=== PATIENT | male | born 1930 | race Hispanic/Latino ===

== ENCOUNTER 2017-05-14 07:47 | Inpatient (IN) | payer MEDICARE ==
[2017-05-14 07:47] VITALS: BMI 26.8
[2017-05-14] MEDS ORDERED: Morphine 2 mg/ml ISec IVP STA (08:33)
[2017-05-14] MEDS ORDERED: Iohexol 240 (50 ml) ONE (08:43)
--- NOTE | 2017-05-14 08:47 | ED PDOC ---
Arrival/HPI - General Chief Complaint: Abdominal Pain Time Seen by Provider: 05/14/17 08:31 Historian: Patient - History of Present Illness Narrative History of Present Illness (Text): 05/14/17 08:39 Am 87 year old male, whose past medical history includes BPH, prostate CA, indwelling catheter, CAD s/p NSTEMI, intermittent UTI and seizure disorder, presents to the emergency department complaining of 1 month duration right sided abdominal pain with no exacerbative or palliative factors. The patient states that the pain has culminated over the past 4-5 days. He notes that it is a generalized abdominal pain, but is mostly a band-like pain across the lower abdomen radiating down his right lower extremity with associated bilateral CVA and groin pain, insomnia, and constipation. The patient states that the pain is worsened at night after reclining. The patient denies fevers, chills, headache, dizziness, chest pain, shortness of breath, dyspnea on exertion, cough, nausea, vomiting, diarrhea, neck pain, urinary changes, or any other complaint. PMD: Dr. Shields Time/Duration: Other (1 month) Symptom Onset: Sudden Symptom Course: Worsening Activities at Onset: Rest, Light Context: Home Past Medical History - Provider Review Nursing Documentation Reviewed: Yes - Infectious Disease Hx of Infectious Diseases: None - Cardiac Hx Cardiac Disorders: No - Pulmonary Hx Respiratory Disorders: No - Neurological Hx Neurological Disorder: Yes Hx Seizures: Yes - HEENT Hx HEENT Disorder: Yes Hx Glaucoma: Yes - Renal Hx Renal Disorder: No - Endocrine/Metabolic Hx Endocrine Disorders: No - Hematological/Oncological Hx Blood Disorders: No - Integumentary Hx Dermatological Disorder: No - Musculoskeletal/Rheumatological Hx Arthritis: Yes - Genitourinary/Gynecological Hx Prostate Cancer: Yes (treated with Luprone shot once a month) - Psychiatric Hx Psychophysiologic Disorder: No Hx Substance Use: No Other/Comment: patient has indwelling catheter - Anesthesia Hx Anesthesia: No Family/Social History - Physician Review Nursing Documentation Reviewed: Yes Family/Social History: No Known Family HX Smoking Status: Never Smoked Hx Alcohol Use: No Hx Substance Use: No Allergies/Home Meds Allergies/Adverse Reactions: Allergies No Known Allergies Allergy (Verified 04/12/16 14:27) Home Medications: Home Meds Medication Instructions Recorded Confirmed Bicalutamide [Casodex] 50 mg PO DAILY 04/08/16 05/14/17 Carbamazepine 200 mg PO TID 04/08/16 05/14/17 Cyanocobalamin (Vitamin B-12) 1,000 mcg PO DAILY 04/08/16 05/14/17 [B-12] Gemfibrozil 600 mg PO BID 04/08/16 05/14/17 Leuprolide [Lupron Depot] 04/08/16 04/08/16 Multivit-Min/FA/Lycopen/Lutein 1 tab PO DAILY 04/08/16 05/14/17 [Centrum Silver Tablet] [place]-3 Fatty Acids [Fish Oil] 100 mg PO DAILY 04/08/16 05/14/17 Omeprazole 40 mg PO DAILY 04/08/16 05/14/17 Polyethylene Glycol 3350 [Gavilax] 5 ml PO DAILY 04/08/16 05/14/17 Ubidecarenone [Coq10] 100 mg PO DAILY 04/08/16 05/14/17 Latanoprost 0.005% Opht [XALATAN 1 drp OP 05/14/17 2.5 Ml] Magnesium Gluconate 500 mg PO DAILY 05/14/17 05/14/17 Review of Systems - Physician Review All systems were reviewed & negative as marked: Yes - Review of Systems Constitutional: absent: Fevers, Night Sweats Eyes: Normal ENT: Normal Respiratory: absent: SOB Cardiovascular: absent: Chest Pain, AGUILA Gastrointestinal: Abdominal Pain (Generalized, band -like pain along the lower abdomen. Mostly along the RUQ.), Constipation. absent: Diarrhea, Nausea, Vomiting, Appetite Changes Genitourinary Male: absent: Urinary Output Changes Musculoskeletal: Back Pain (bilateral CVA pain), Other (Abdominal pain radiates down to the right lower extremity. ). absent: Neck Pain Skin: Normal Neurological: absent: Headache, Dizziness Endocrine: Normal Hemo/Lymphatic: Normal Psychiatric: Normal Physical Exam Vital Signs Reviewed: Yes Vital Signs Temp Pulse Resp BP Pulse Ox 05/14/17 14:34 71 17 158/70 H 98 05/14/17 12:17 67 18 160/68 H 97 05/14/17 10:10 70 18 157/67 H 98 05/14/17 08:14 98.1 F 71 18 146/63 100 Temperature: Afebrile Blood Pressure: Normal Pulse: Regular Respiratory Rate: Normal Appearance: Positive for: Well-Appearing, Non-Toxic, Comfortable Pain Distress: None Mental Status: Positive for: Alert and Oriented X 3 - Systems Exam Head: Present: Atraumatic, Normocephalic Pupils: Present: PERRL Extroacular Muscles: Present: EOMI Conjunctiva: Present: Normal Mouth: Present: Moist Mucous Membranes Neck: Present: Normal Range of Motion Respiratory/Chest: Present: Clear to Auscultation, Good Air Exchange. No: Respiratory Distress, Accessory Muscle Use Cardiovascular: Present: Regular Rate and Rhythm, Normal S1, S2. No: Murmurs Abdomen: Present: Tenderness (Generalized abdominal tenderness. Most tender on the RUQ. ) Genitourinary Male: Present: Other (Indwelling holland catheter draining clear urine. ) Back: Present: CVA Tenderness (Bilateral CVA Tenderness. ) Upper Extremity: Present: Normal Inspection. No: Cyanosis, Edema Lower Extremity: Present: Normal Inspection. No: Edema Neurological: Present: GCS=15, CN II-XII Intact, Speech Normal, Motor Func Grossly Intact, Normal Sensory Function, Normal Cerebellar Funct, Norm Deep Tendon Reflexes, Gait Normal, Memory Normal Skin: Present: Warm, Dry, Normal Color. No: Rashes Psychiatric: Present: Alert, Oriented x 3, Normal Insight, Normal Concentration Medical Decision Making ED Course and Treatment: 05/14/17 08:50 Impression: An 87 year old male presents to the emergency department complaining of 1 month duration generalized abdominal pain, mostly along the right upper quadrant radiating down to his right lower extremity with associated constipation, insomnia, CVA and groin pain. Plan: -- EKG -- Abdomen/Pelvis CT -- Chest X-ray -- Labs -- Morphine and Ditropan -- Blood/ Urine Culture -- Urinalysis -- Reassess and disposition Progress Notes: EK05/14/17 09:38 Ordered, reviewed, and independently interpreted the EKG. Rate : 73 BPM Rhythm : NSR Interpretation : Concomitant RBBB. QTC [address]-T segments CHEST X-RAY Dictator : Rickey Medley MD Report Date : 05/14/2017 09:21:02 IMPRESSION: No active disease. 05/14/17 11:35 ct a/p scan results appreciated : no acute findings- no bony mets discovered however, one wonders if they may be acute and contirbuting to patient's pain. serial abdominal exams benign . PROCEDURE: CT Abdomen and Pelvis with contrast Dictator : Tawanda Christine MD Report Date : 05/14/2017 11:09:54 IMPRESSION: Para-aortic, pelvic and inguinal adenopathy on the left. Asymmetrical enlargement of the prostate suspicious for neoplasm. [place] catheter in the bladder. No acute findings to correlate with the history of abdominal pain GALLBLADDER ULTRASOUND Dictator : Rickey Medley MD Report Date : 05/14/2017 13:50:49 IMPRESSION: Mild hepatomegaly with fatty infiltration of the liver. No evidence of cholelithiasis or cholecystitis. Incidental 11 mm right lower pole renal cortical cyst. - Lab Interpretations Lab Results: 05/14/17 09:17 05/14/17 08:50 Lab Results 05/14/17 09:17: pO2 40, VBG pH 7.29 L, VBG pCO2 62.0 H, VBG HCO3 29.8 H, VBG Total CO2 31.7 H, VBG O2 Sat (Calc) 76.4 H, VBG Base Excess 1.6, VBG Potassium 3.9, Glucose 96, Lactate 1.6, FiO2 21.0, Sodium 143.0, Chloride 107.0, Venous Blood Potassium 3.9 05/14/17 09:17: PT 12.4, INR 1.08, APTT 31.9 05/14/17 09:17: WBC 6.3 D, RBC 3.57, Hgb 11.1 L, Hct 33.6 L, MCV 94.1, MCH 31.1 , MCHC 33.0, RDW 13.3, Plt Count 168, MPV 9.9, Gran % 30.1 L, Lymph % (Auto) 62.9 H, [place] % (Auto) 6.3 H, Eos % (Auto) 0.5 L, Baso % (Auto) 0.2, Gran # 1.90 , Lymph # 4.0 H, [place] # 0.4, Eos # 0.0, Baso # 0.01 05/14/17 08:50: Sodium 144, Potassium 3.8, Chloride 104, Carbon Dioxide 28, Anion Gap 16, BUN 26 H, Creatinine 0.8, Est GFR ( Amer) > 60, Est GFR ( Non-Af Amer) > 60, Random Glucose 96, Calcium 9.5, Magnesium 2.1, Total Bilirubin 0.4, AST 37, ALT 24, Alkaline Phosphatase 214 H, Total Protein 7.6, Albumin 4.3, Globulin 3.3, Albumin/Globulin Ratio 1.3 05/14/17 08:50: Urine Color Yellow, Urine Appearance Turbid, Urine pH 6.5, Ur Specific [place] 1.015, Urine Protein Trace H, Urine Glucose (UA) Negative, Urine Ketones Negative, Urine Blood Moderate H, Urine Nitrate Negative, Urine Bilirubin Negative, Urine Urobilinogen 0.2, Ur Leukocyte Esterase Small H, Urine RBC 5 - 10, Urine WBC 1 - 3, Ur Epithelial Cells 0 - 2, Urine Bacteria Mod I have reviewed the lab results: Yes - RAD Interpretation Radiology Orders: 05/14/17 08:32 CHEST PORTABLE [RAD] Stat 05/14/17 08:34 ABD PELVIS PO & IV CONTRAST [CT] Stat 05/14/17 11:46 GALL BLADDER [US] Stat - EKG Interpretation Interpreted by ED Physician: Yes Type: 12 lead EKG - Medication Orders Current Medication Orders: Discontinued Medications Acetaminophen (Tylenol 325mg Tab) 975 mg PO STAT STA Stop: 05/14/17 09:46 Last Admin: 05/14/17 09:55 Dose: 975 mg ALEXIS Pain/Vitals Document 05/14/17 09:55 MARTY (Rec: 05/14/17 09:55 MARTY NAVARRO) Pain Reassessment Is This A Pain ReAssessment? No Sleep Is patient sleeping during reassessment? No Presence of Pain Presence of Pain Yes Docusate Sodium (Colace) 200 mg PO STAT STA Stop: 05/14/17 11:34 Last Admin: 05/14/17 12:25 Dose: 200 mg Last Bowel Movement Document 05/14/17 12:25 SF (Rec: 05/14/17 12:26 SF [id number]) Last Bowel Movement Last Bowel Movement 05/11/17 Morphine Sulfate (Morphine) 2 mg IVP STAT STA Stop: 05/14/17 08:34 Last Admin: 05/14/17 08:45 Dose: 2 mg MAR Pain Assessment Document 05/14/17 08:45 MARTY (Rec: 05/14/17 09:57 MARTY [id number]-PC) Pain Reassessment Is this a pain reassessment? No Sleep Is patient sleeping during reassessment? No Presence of Pain Presence of Pain Yes IVP Administration Document 05/14/17 08:45 SZA (Rec: 05/14/17 09:57 MARTY FALCON-PC) Charges for Administration # of IVP Administrations 1 Re-Assess: MAR Pain Assessment Document 05/14/17 09:45 SZA (Rec: 05/14/17 11:09 MARTY [email or web address]) Pain Reassessment Is this a pain reassessment? No Sleep Is patient sleeping during reassessment? No Presence of Pain Presence of Pain Yes Pain Scale Used Pain Scale Used Numeric Description Description Intermittent Intensity of Pain at present 4 Morphine Sulfate (Morphine) 4 mg IVP STAT STA Stop: 05/14/17 11:46 Last Admin: 05/14/17 12:25 Dose: 4 mg MAR Pain Assessment Document 05/14/17 12:25 SF (Rec: 05/14/17 12:25 SF [id number]) Pain Reassessment Is this a pain reassessment? Yes Sleep Is patient sleeping during reassessment? No Presence of Pain Presence of Pain Yes Pain Scale Used Pain Scale Used Numeric IVP Administration Document 05/14/17 12:25 SF (Rec: 05/14/17 12:25 SF [id number]) Charges for Administration # of IVP Administrations 1 Ondansetron HCl (Zofran Inj) 4 mg IVP STAT STA Stop: 05/14/17 11:47 Last Admin: 05/14/17 12:26 Dose: 4 mg IVP Administration Document 05/14/17 12:26 SF (Rec: 05/14/17 12:26 SF [id number]) Charges for Administration # of IVP Administrations 1 Oxybutynin Chloride (Ditropan Tab) 5 mg PO ONCE ONE Stop: 05/14/17 08:35 Last Admin: 05/14/17 09:55 Dose: 5 mg Trimethoprim/Sulfamethoxazole (Bactrim Ds Tab) 1 tab PO STAT STA PRN Reason: Protocol Stop: 05/14/17 11:33 Last Admin: 05/14/17 12:25 Dose: 1 tab - Scribe Statement The provider has reviewed the documentation as recorded by the Crescencio Carroll Provider Scribe Attestation: All medical record entries made by the Scribe were at my direction and personally dictated by me. I have reviewed the chart and agree that the record accurately reflects my personal performance of the history, physical exam, medical decision making, and the department course for this patient. I have also personally directed, reviewed, and agree with the discharge instructions and disposition. Disposition/Present on Arrival - Present on Arrival Any Indicators Present on Arrival: Yes History of DVT/PE: No History of Uncontrolled Diabetes: No Urinary Catheter: Yes (inserted by Dr Nascimento) History of Decub. Ulcer: No History Surgical Site Infection Following: None - Disposition Have Diagnosis and Disposition been Completed?: Yes Diagnosis: Urinary tract infection, Intractable abdominal pain, Sciatica of right side Disposition: HOSPITALIZED Disposition Time: 15:07 Patient Plan: Admission Condition: FAIR Referrals: Mariana Yanez, [Non-Staff] - Follow up with primary Forms: [employer] (Greek)
--- NOTE | 2017-05-14 09:22 | RAD ---
HISTORY: Sepsis Patient COMPARISON: 04/08/2016 FINDINGS: LUNGS: No active pulmonary disease. PLEURA: No significant pleural effusion identified, no pneumothorax apparent. CARDIOVASCULAR: Normal. OSSEOUS STRUCTURES: No significant abnormalities. VISUALIZED UPPER ABDOMEN: Normal. OTHER FINDINGS: None. IMPRESSION: No active disease.
[2017-05-14 09:25] LABS: PH,URINE 6.5 (4.7-8.0); URINE APPEARANCE TURBID (CLEAR); URINE BILIRUBIN NEGATIVE (NEGATIVE); URINE BLOOD MODERATE (NEGATIVE); URINE COLOR YELLOW (YELLOW); URINE GLUCOSE (UA) NEGATIVE (NEGATIVE); URINE LEUKOCYTE ESTERASE SMALL Leu/uL (NEGATIVE); URINE NITRATE NEGATIVE (NEGATIVE); URINE PROTEIN TRACE mg/dL (<30 mg/dL); URINE UROBILINOGEN 0.2 E.U./dL (<1 E.U./dL)
[2017-05-14 09:29] LABS: BASO # 0.01 [, K/mm3] (0.0-2.0); BASO % 0.2 % (0.0-3.0); EOS % 0.5 % (1.5-5.0); GRAN # 1.9 (1.4-6.5); GRAN % 30.1 % (50.0-68.0); HEMOGLOBIN 11.1 g/dL (14.0-18.0); LYMPH % 62.9 % (22.0-35.0); MEAN CELL VOLUME 94.1 fl (80.0-105.0); MEAN CORPUSCULAR HEMOGLOBIN 31.1 pg (25.0-35.0); MEAN PLATELET VOLUME 9.9 fl (7.0-11.0); MONO # 0.4 (0.1-0.6); MONO % 6.3 % (1.0-6.0); RBC 3.57 [, 10^6/uL] (3.5-6.1); RED CELL DISTRIBUTION WIDTH 13.3 % (11.5-14.5); WHITE BLOOD COUNT 6.3 [, 10^3/ul] (4.5-11.0)
[2017-05-14 09:31] LABS: VENOUS BLOOD GAS BASE EXCESS 1.6 mmol/L (0.0-2.0); VENOUS BLOOD GAS PO2 40 mm/Hg (30-55); VENOUS BLOOD PH 7.29 (7.32-7.43)
[2017-05-14 09:38] LABS: INR 1.08 (0.93-1.08); PARTIAL THROMBOPLASTIN TIME 31.9 Seconds (25.1-36.5); PROTHROMBIN TIME 12.4 SECONDS (9.4-12.5)
[2017-05-14 09:41] LABS: ALB/GLOB RATIO 1.3 (1.1-1.8); ALBUMIN 4.3 g/dL (3.0-4.8); ALT/SGPT 24 U/L (7-56); AST/SGOT 37 U/L (17-59); BLOOD UREA NITROGEN 26 mg/dL (7-21); CALCIUM 9.5 mg/dL (8.4-10.5); GFR AFRICAN-AMERICAN > 60; GFR NON-AFRICAN AMERICAN > 60; MAGNESIUM 2.1 mg/dL (1.7-2.2)
[2017-05-14 09:42] LABS: URINE BACTERIA MOD (NEG); URINE EPITHELIAL CELLS 0 - 2 /hpf (0-5)
[2017-05-14] MEDS ORDERED: Iohexol 350 MG/100 ML VIAL ONE (10:28)
--- NOTE | 2017-05-14 10:42 | CARD ---
APPROVED REPORT EKG Measurement Heart [id number] NM [id number] <Conclusion> Normal sinus rhythm Right bundle branch block Abnormal ECG
--- NOTE | 2017-05-14 11:11 | CT ---
PROCEDURE: CT Abdomen and Pelvis with contrast HISTORY: rt sided abdominal pain/b/l cva pain/indweeling ca COMPARISON: None. TECHNIQUE: Contrast dose: 100 cc of Omni 350 Radiation dose: Total exam DLP = 719 mGy-cm. This CT exam was performed using one or more of the following dose reduction techniques: Automated exposure control, adjustment of the mA and/or kV according to patient size, and/or use of iterative reconstruction technique. FINDINGS: LOWER THORAX: Unremarkable. LIVER: Unremarkable. No gross lesion or ductal dilatation. GALLBLADDER AND BILE DUCTS: There is mild distention of the gallbladder but no wall thickening or evidence of stones. PANCREAS: Unremarkable. No gross lesion or ductal dilatation. SPLEEN: Unremarkable. ADRENALS: Unremarkable. No mass. KIDNEYS AND URETERS: Unremarkable. No hydronephrosis. No solid mass. VASCULATURE: Unremarkable. No aortic aneurysm. BOWEL: Unremarkable. No obstruction. No gross mural thickening. There are no acute findings to correlate with the history of abdominal pain APPENDIX: Normal appendix. PERITONEUM: Unremarkable. No free fluid. No free air. LYMPH NODES: Multiple in large lymph nodes are seen on the left side of the pelvis the largest measuring 3 cm in length. Image 66 series 2. There is also para-aortic adenopathy and inguinal adenopathy on the left. BLADDER: There is a Bray catheter in the bladder REPRODUCTIVE: There is asymmetrical enlargement of the prostate gland extending posterior laterally to the left. The finding is suspicious for pancreatic malignancy and clinical correlation is recommended. The finding is best seen on axial images 81 and 82 of series 2. BONES: No acute fracture. OTHER FINDINGS: None. IMPRESSION: Para-aortic, pelvic and inguinal adenopathy on the left. Asymmetrical enlargement of the prostate suspicious for neoplasm. Bray catheter in the bladder. No acute findings to correlate with the history of abdominal pain
[2017-05-14] MEDS ORDERED: Tmp-Smz 800 mg-160 mg DS Tab PO STA (11:32)
[2017-05-14] MEDS ORDERED: Morphine 4 mg/ml ISec IVP STA ×2 (11:45→16:36)
--- NOTE | 2017-05-14 13:52 | US ---
HISTORY: ruq sono/ gb lith COMPARISON: None. TECHNIQUE: Sonographic evaluation of the right upper quadrant of the abdomen. FINDINGS: LIVER: Measures 19.0 cm in length. Diffusely increased echogenicity of the liver parenchyma. No mass. No intrahepatic bile duct dilatation. GALLBLADDER: Unremarkable. No gallstones. COMMON BILE DUCT: Measures 6 mm. No stones. No dilatation. PANCREAS: Unremarkable as visualized. No mass. No ductal dilatation. RIGHT KIDNEY: Measures 10.7 cm in length. Normal echogenicity and cortical thickness. No calculus or hydronephrosis. Lower pole simple cortical cyst, 9 x 9 x 11 mm. AORTA: No aneurysmal dilatation. IVC: Unremarkable. OTHER FINDINGS: None . IMPRESSION: Mild hepatomegaly with fatty infiltration of the liver. No evidence of cholelithiasis or cholecystitis. Incidental 11 mm right lower pole renal cortical cyst.
[2017-05-15] MEDS: cefTRIAXone 1 gm 1 GM/100 ML BAG IV SCH (10:00)
[2017-05-15] MEDS: metroNIDAZOLE IV 500 mg/100 ml 500 MG/100 ML BAG IVPB SCH ×2 (11:02→15:19)
[2017-05-15] MEDS: Latanoprost 2.5 ml Opht Soln OD SCH (15:35)
[2017-05-15] MEDS: POLYETHYLENE GLYCOL 3350 17 GM/Dose PACKET PO SCH (17:50)
--- NOTE | 2017-05-15 20:20 | MRI ---
EXAM: MR Lumbar Spine Without Intravenous Contrast EXAM DATE/TIME: 05/15/2017 3:33 PM CLINICAL HISTORY: The patient age is 87 years old and is male; Pain; Low back pain; Patient HX: Lbp. Can't straighten up and trouble walking. Facility exam id and description: Mri spls spinal canal lumbar w/o cont TECHNIQUE: Magnetic resonance images of the lumbar spine without intravenous contrast in multiple planes. COMPARISON: No relevant prior studies available. FINDINGS: Vertebrae: Multiple T1 hypointense masses are identified within the lumbar vertebral bodies as well as the upper sacrum. These findings are concerning for metastatic disease. The lumbar vertebral bodies are normal in height, without abnormal subluxation. Spinal cord: The distal end of the conus medullaris ends at L1, normal in position. Soft tissues: Small T2 hyperintense right renal cysts are visualized. Lymph nodes: There is retroperitoneal lymphadenopathy. Additional enlarged lymph nodes are seen adjacent to the left iliac arteries. At the level of the aortic bifurcation, there is a 2.5 x 1.5 cm lymph node on the left side. 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 There is a decrease of disc height at L5-S1. L1-L2: There is no significant narrowing of the thecal sac or neural foramina. L2-L3: There is no significant narrowing of the thecal sac. Mild bilateral neural foraminal narrowing is identified. L3-L4: There is mild bilateral facet arthropathy. Mild post bulging is visualized, without significant narrowing of the thecal sac. Mild right and [id number]-yi-hrumnjce left neural foraminal narrowing is identified. L4-L5: There is a broad-based disc bulge, with mild narrowing of the thecal sac and narrowing of both lateral recesses. There is bilateral facet arthropathy. Mild/moderate bilateral neural foramina is identified. L5-S1: There is no significant narrowing of the thecal sac. Mild/moderate left neural foraminal narrowing is visualized. There is facet arthropathy bilaterally. IMPRESSION: 1. Multiple masses are identified within the lumbar vertebral bodies as well as the upper sacrum. These findings are concerning for metastatic disease. 2. There is retroperitoneal lymphadenopathy. Additional enlarged lymph nodes are seen adjacent to the left iliac arteries. 3. Degenerative changes are noted diffusely within the lumbar spine, as described above. 4. Mild narrowing of the thecal sac and narrowing of both lateral recesses are visualized at L4-5. 5. Neural foraminal narrowing is identified from L2-3 through L5-S1, as detailed above. 6. Incidental/non-acute findings are described above.
--- NOTE | 2017-05-15 21:18 | CON ---
DATE: 05/15/2017 REQUESTIG PHYSICIAN: Dr. Dr. 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 Patient has been constipated for several days as he has not been taking his MiraLax. He denies any rectal bleeding or melena. He denies fevers or chills. CT scan of the abdomen and pelvis just showed an enlarged prostate with periaortic lymphadenopathy. Patient also has been diagnosed in the past with degenerative disc disease in the lumbar spine with foraminal narrowing at L5-S1 on the left secondary to osteophyte. 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 SOCIAL HISTORY: He is a . He denies cigarette smoking or alcohol use. He lives at home with a son living nearby. FAMILY HISTORY: Noncontributory. REVIEW OF SYSTEMS: A 14-point review of systems is notable for back pain, abdominal pain, right lower quadrant and difficulty walking. MEDICATIONS AT HOME: Include Casodex 50 mg once a day, carbamazepine 200 mg three times a day, vitamin B12 1000 mcg daily, gemfibrozil 600 mg p.o. b.i.d., Lupron injections monthly, multivitamin, fish oil 100 mg daily, omeprazole 40 mg once a day, polyethylene glycol daily, CoQ 100 mg daily, and Xalatan eyedrops 1 drop daily. PHYSICAL EXAMINATION GENERAL: Elderly male appearing to have lost some weight in no distress. He is awake and alert. VITAL SIGNS: Reveal temperature of 97.8, blood pressure 133/58, heart rate of 80. His BMI is 25.5. HEENT: Reveal sclerae to be white. Conjunctivae pink. NECK: Supple. CHEST: Lungs are clear. HEART: Regular rate and rhythm. ABDOMEN: Soft, nontender. EXTREMITIES: Show no edema. Laboratory data reveal white blood cell count 6.3, hemoglobin 11.1. Chemistries reveal BUN 26, creatinine 0.8, procalcitonin is 0.05. AST and ALT are normal. Alkaline phosphatase is 214. IMPRESSION: An 87-year-old male with prostate cancer with metastasis with lymphadenopathy in the periaortic area with abdominal pain in the right lower quadrant associated with constipation. Ultrasound of the abdomen was negative. CT scan of the abdomen shows no acute changes other than the enlarged prostate and lymphadenopathy. His abdominal pain has been improved. Considering all his comorbidities, we will suggest conservative treatment. RECOMMENDATIONS: 1. Continue MiraLax 17 g once a day. 2. No further GI workup planned at this time. Tj Mora MD
--- NOTE | 2017-05-16 02:34 | HP ---
DATE: 05/15/2017 CHIEF COMPLAINT AND HISTORY OF PRESENT ILLNESS: This is an 87-year-old male, who is coming into the hospital with a past medical history of prostate cancer, BPH, has an indwelling catheter, the patient has coronary artery disease, non-ST elevation [place] history. The patient states that he has been having one month duration of right-sided abdominal pain. He says nothing makes the pain better or worse the pain, it has been getting worse over the last 4 to 5 days. He says that the pain is going around his abdomen, it radiates down his right leg. He has been having constipation, he says it is worse after he lays backwards. He has no nausea. No vomiting. No diarrhea. No dysuria or frequency. He also has difficulty in ambulating. He says that he has been having back issues and is seeing Dr. Kulkarni. According to the patient's son, he had a CAT scan done about 3 years ago. REVIEW OF SYMPTOMS: All other review of symptoms are within normal limits except as mentioned. ALLERGIES: NO KNOWN DRUG ALLERGIES. HOME MEDICATIONS: Reviewed on the [facility]. PAST MEDICAL HISTORY: Please see above, also prostate cancer. SOCIAL HISTORY: He does not smoke , drink or use drugs. FAMILY HISTORY: Noncontributory. PHYSICAL EXAMINATION: VITAL SIGNS: He has had a temperature of 98.7, pulse of 64, blood pressure of 138/53, respirations of 19, height is 5 feet 10 inches, weight is 178 pounds, BMI is 25.5. GENERAL: The patient lying in bed, uncomfortable, and in no acute distress. HEENT: Atraumatic and normocephalic. Anicteric sclerae. Moist mucosa. [place] conjunctivae. No oral lesions. NECK: No JVD, anterior and posterior adenopathy, thyromegaly, or bruits. CARDIOVASCULAR: S1 and S2 regular. No murmur, rubs, or gallop. LUNGS: Clear to auscultation bilaterally. No wheezes, rales, or rhonchi. ABDOMEN: Bowel sounds are positive. He has right side tenderness. No rebound. No guarding EXTREMITIES: No cyanosis, clubbing, or edema. NEUROLOGIC: No facial asymmetry. Tongue is midline. No uvula deviation. Power is 5/5 upper extremity and lower extremity. Sensation intact in upper extremity and lower extremity. PSYCHIATRIC: She is awake, alert and oriented x3. No anxiety or depression. She has normal affect. GENITOURINARY: No CVA tenderness. VASCULAR: 2+ pulses in the carotid pulses and pedal pulses. SKIN: No erythema or nodules SPINE: Shows normal curvature. LABORATORY DATA: White count of 6.3, hemoglobin of 11.1, INR is 1.08. He has a VBG that shows a pH of 7.29, his pCO2 is 62, his bicarb is 28, procalcitonin is less than 0.05. He has urine that shows blood as moderate, nitrites are negative. He has a gallbladder ultrasound that shows mild hepatomegaly with fatty infiltration of the liver. No evidence of cholelithiasis, but there is an 11 mm right lower lobe renal cyst. He had abdominal CT done that shows no acute findings. His EKG shows sinus rhythm at 73, no ST-T changes. ASSESSMENT: 1. Abdominal pain. 2. Hepatomegaly. 3. 11 mm right pole renal cyst. 4. Coronary artery disease. 5. Prostate cancer. 6. Osteoarthritis. 7. Seizure disorder. 8. Gait dysfunction secondary to back pain. 9. Paraaortic and pelvic adenopathy . PLAN: The patient is going to be currently admitted to the hospital. He is on gemfibrozil for his dyslipidemia. He is on MiraLax for his constipation. The patient is receiving carbamazepine for his seizures. The patient has large lymph node seen on the left side, we will get Dr. Nascimento to evaluate the patient. I have also added an MRI to evaluate the back because of the patient's history of prostate cancer. He is going to get physical therapy. I have asked physical therapy to evaluate the patient. He is going to be on his eyedrops. I have also asked Dr. Mora to evaluate the patient. I spoke to the patient's son to give an update on the patient's diagnosis and plan of care. His blood cultures have been negative. The patient has urine cultures that are pending. I have him on antibiotics for possible UTI. He is not able to ambulate because of his back pain. Kenny Bae MD [facility] # [id number]
--- NOTE | 2017-05-16 07:11 | PN ---
DATE: 05/16/2017 SUBJECTIVE: The patient has no complaints of any chest pain. No shortness of breath. No headaches. He says his back pain is controlled. PHYSICAL EXAMINATION: VITAL SIGNS: Temperature is 97.5, pulse is 73, blood pressure is 133/87, respirations 16. GENERAL: The patient is lying in bed, flat, comfortable. HEENT: No oral lesion. Anicteric sclerae. Moist mucosa. NECK: No JVD, adenopathy, or thyromegaly. CARDIOVASCULAR: S1 and S2, regular. No murmurs, rubs, or gallops. LUNGS: Clear to auscultation bilaterally. No wheeze, rales, or rhonchi. ABDOMEN: Bowel sounds are positive, soft, nontender and nondistended. EXTREMITIES: No cyanosis, clubbing or edema. Multiple masses identified in the lumbar vertebral bodies as well as the upper sacrum. This finding is probably consistent with metastatic disease with retroperitoneal lymphadenopathy. ASSESSMENT: 1. Abdominal pain, improved. 2. Back pain secondary to metastasis from prostate cancer. 3. Spinal stenosis. 4. Hepatomegaly. 5. An 11 mm right pole renal cyst. 6. Coronary artery disease. 7. Prostate cancer. 8. Osteoarthritis. 9. Seizure disorder. 10. Gait dysfunction secondary to back pain. 11. Pelvic adenopathy. 12. Urinary tract infection secondary to gram-positive cocci. PLAN: The patient's MRI has been reviewed. I am waiting for Dr. Nascimento to evaluate the patient. The patient has been seen by Dr. Mora. He want to continue his gemfibrozil. The patient is on MiraLax for constipation. He is on Rocephin because of the UTI. He has gram-positive cocci. The patient is going to continue the physical therapy. We will continue to follow up the patient closely. I did speak to the patient's family yesterday to give them an update on the patient's diagnoses and plan of care. Kenny Bae MD
[2017-05-16] MEDS ORDERED: Oxycodone/Acetaminophen 5/325 mg Tab PO ONE (08:06)
--- NOTE | 2017-05-16 11:34 | PN ---
DATE: 05/16/2017 SUBJECTIVE: The patient is lying in bed. He denies any further abdominal pain. He complains of some constipation. MRI of the lumbar spine showed a disk herniation at L4 as well as multiple lytic lesions in the lumbar vertebral body. He was also noted to have periaortic and retroperitoneal lymphadenopathy. PHYSICAL EXAMINATION VITAL SIGNS: Reveal temperature 97.4, blood pressure 123/82, heart rate of 82. HEENT: Reveals sclerae to be white. Conjunctivae pink. NECK: Supple. CHEST: Lungs are clear. HEART: Reveals regular rate and rhythm. ABDOMEN: Soft, nontender. EXTREMITIES: Show no edema. LABORATORY DATA: Reveal white blood cell count 6.3, hemoglobin 11.1, BUN 26, creatinine 0.8. IMPRESSION: 1. Constipation with resolution of abdominal pain. 2. Low back pain secondary to prostate cancer with bone mets. He also has retroperitoneal lymphadenopathy. He has been on treatment for his prostate cancer. RECOMMENDATIONS: 1. We will start MiraLax 17 g b.i.d. 2. Consider radiation therapy evaluation for palliative radiation to his lytic lesions in his back. 3. I have discussed this case with Dr. Sierra. Tj Mora MD
--- NOTE | 2017-05-16 13:04 | CP.PCM.CON ---
History of Present Illness - History of Present Illness History of Present Illness: Mr Mcadams is a 87 year old male with a history of high risk prostate cancer since 2016 on androgen deprivation therapy. In 2016, he had an elevation in his PSA. A TRUS with biopsy showed adenocarcinoma of the prostate, [place] 5+4= 9 in 05/10, [place] 4+5=9 08/08, [place] 4+4=8 06/10, [place] 4+3=7 05/10. He was on ADT and anti-androgen therapy. Over the past 3-4 weeks, he has been having worsening lower back pain with radiation anteriorly. In light of this, he came to the ED for further evaluation and management. He had a CT of the abdomen and pelvis on May 14, 2017 revealed para-aortic lymphadenopathy as well as pelvic lymphadenopathy. A MRI of the lumbar spine on May 15, 2017 revealed retroperitoneal lymphadenopathy. There was asymmetric prostate suspicious for neoplasm. There were metastatic lesions in the lumbar and sacral spine. He is referred to us for consideration of palliative radiation therapy. Review of Systems - Constitutional Constitutional: Weakness - Musculoskeletal Musculoskeletal: Back Pain Past Patient History - Infectious Disease Hx of Infectious Diseases: None - Past Social History Smoking Status: Never Smoked Alcohol: None Home Situation {Lives}: Alone - CARDIAC Hx Cardiac Disorders: No - PULMONARY Hx Respiratory Disorders: No - NEUROLOGICAL Hx Neurological Disorder: Yes Hx Seizures: Yes - HEENT Hx HEENT Problems: Yes Hx Glaucoma: Yes - RENAL Hx Chronic Kidney Disease: No - ENDOCRINE/METABOLIC Hx Endocrine Disorders: No - HEMATOLOGICAL/ONCOLOGICAL Hx Blood Disorders: No - INTEGUMENTARY Hx Dermatological Problems: No - MUSCULOSKELETAL/RHEUMATOLOGICAL Hx Arthritis: Yes - GENITOURINARY/GYNECOLOGICAL Hx Prostate Cancer: Yes (treated with Luprone shot once a month) - PSYCHIATRIC Hx Psychophysiologic Disorder: No Hx Substance Use: No Other/Comment: patient has indwelling catheter - SURGICAL HISTORY Hx Surgeries: No - ANESTHESIA Hx Anesthesia: No Meds Allergies/Adverse Reactions: Allergies Allergy/AdvReac Type Severity Reaction Status Date / Time No Known Allergies Allergy Verified 04/12/16 14:27 - Medications Medications: Current Medications Acetaminophen (Tylenol 325mg Tab) 650 mg PO Q4H PRN PRN Reason: Pain, Mild (1-3) Carbamazepine (Tegretol) 200 mg PO TID [facility] PRN Reason: Protocol Last Admin: 05/15/17 17:49 Dose: 200 mg Docusate Sodium (Colace) 200 mg PO DAILY [facility] Gemfibrozil (Lopid) 600 mg PO BID [facility] Last Admin: 05/15/17 17:50 Dose: 600 mg Ceftriaxone Sodium (Rocephin 1 Gram Ivpb) 1 gm in 100 mls @ 200 mls/hr IV DAILY [facility] PRN Reason: Protocol Last Admin: 05/15/17 10:00 Dose: 200 mls/hr Latanoprost (Xalatan Opht) 0 ml OD DAILY [facility] Last Admin: 05/15/17 15:35 Dose: 2.5 ml Oxycodone/Acetaminophen (Percocet 5/325 Mg Tab) 1 tab PO Q4H PRN PRN Reason: Pain, moderate (4-7) Stop: 05/19/17 08:08 Polyethylene Glycol (Miralax) 17 gm PO BID [facility] Last Admin: 05/15/17 17:50 Dose: 17 gm Physical Exam - Eye Exam Eye Exam: EOMI - ENT Exam ENT Exam: Mucous Membranes Moist - Respiratory Exam Respiratory Exam: Clear to Auscultation Bilateral - Cardiovascular Exam Cardiovascular Exam: REGULAR RHYTHM - GI/Abdominal Exam GI & Abdominal Exam: Normal Bowel Sounds - Neurological Exam Neurological exam: CN II-XII Intact, Oriented x3 Additional comments: Right lower extremity strength is 4/5. Left lower extremity strength is 4+/5 Results - Vital Signs Recent Vital Signs: Last Vital Signs Temp 97.4 F L 05/16/17 08:02 Pulse 82 05/16/17 08:02 Resp 22 05/16/17 08:02 BP 123/82 05/16/17 08:02 Pulse Ox 97 05/16/17 08:02 - Labs Result Diagrams: 05/14/17 09:17 05/14/17 08:50 Assessment & Plan - Assessment and Plan (Free Text) Assessment: Mr Mcadams has metastatic prostate cancer with bone metastases. Based on his MRI and symptoms, we would recommend palliative radiation therapy to the lower lumbar and upper sacral spine for symptomatic management of his pain. We spoke to him and his son about radiation therapy. They are currently undecided about treatment. We would also recommend a bone scan as well as PSA given his new found metastases so that we know the extent of his disease. We will follow up with him tomorrow about his decision.
[2017-05-16] MEDS: POLYETHYLENE GLYCOL 3350 17 GM/Dose PACKET PO SCH ×2 (13:16→17:05)
[2017-05-16] MEDS: Latanoprost 2.5 ml Opht Soln OD SCH (13:17)
[2017-05-16] MEDS: cefTRIAXone 1 gm 1 GM/100 ML BAG IV SCH (13:18)
[2017-05-16] MEDS: Oxycodone/Acetaminophen 5/325 mg Tab PO PRN ×2 (17:10→21:22)
[2017-05-17] MEDS: Oxycodone/Acetaminophen 5/325 mg Tab PO PRN ×2 (07:00→22:52)
--- NOTE | 2017-05-17 08:21 | PN ---
DATE: 05/17/2017 SUBJECTIVE: The patient has no complaints of any chest pain. No shortness of breath. He says the pain medication does not ease back pain. PHYSICAL EXAMINATION: VITAL SIGNS: Temperature is 97.6, pulse of 86, blood pressure of 187/70, and respirations of 22. GENERAL: The patient is lying in bed, flat, comfortable. HEENT: No oral lesion. Anicteric sclerae. Moist mucosa. NECK: No JVD, adenopathy, or thyromegaly. CARDIOVASCULAR: S1 and S2, regular. No murmurs, rubs, or gallops. LUNGS: Clear to auscultation bilaterally. No wheeze, rales, or rhonchi. ABDOMEN: Bowel sounds are positive, soft, nontender and nondistended. EXTREMITIES: No cyanosis, clubbing or edema. LABORATORY DATA: White count of 6.3 and hemoglobin of 11.1. Creatinine of 0.8. ASSESSMENT: 1. Abdominal pain, improved. 2. Back pain secondary to metastasis from prostate cancer. 3. Spinal stenosis. 4. Hepatomegaly. 5. An 11 mm right pole renal cyst. 6. Coronary artery disease. 7. Prostate cancer. 8. Osteoarthritis. 9. Seizure disorder. 11. Gait dysfunction secondary to back pain. 12. Pelvic adenopathy. 13. Urinary tract infection secondary to Enterococcus. PLAN: The patient has Enterococcus sensitive to ampicillin. I will change the patient's antibiotics to ampicillin. Now, we will discontinue the patient's Rocephin. I will ask Dr. Luz to evaluate the patient for possible radiation. She does recommend palliative radiation therapy to lower back. She did speak to the patient as well as son. I will order PSA 166. The patient is on gemfibrozil for his dyslipidemia. He is on carbamazepine, initially continued and he is on eye drops. He will most likely need Transitional Care. Kenny Bae MD
--- NOTE | 2017-05-17 08:30 | CON ---
DATE: 05/16/2017 CONSULTATION CHIEF COMPLAINT: Back pain. HISTORY OF PRESENT ILLNESS: This is an 87-year-old male who has been seeing my partner Dr. Meyer for prostate cancer and urinary retention. Apparently, the patient had been started on Lupron and Casodex for high-grade prostate cancer. The patient initially had done well with a lowering of his PSA. The patient has a history of urinary retention and has been seen as well in the office for home Bray changes monthly. In the last few weeks, the patient's son reports that he has been having increasing low back pain and leg pain. He has had some difficulty ambulating and progressive weakness. He was brought to the emergency room and was then admitted. The patient was seen today by Dr. Luz in Radiation Oncology after a CT scan and MRI showed apparent bony metastasis to the spine. A consultation was requested regarding the above. PAST MEDICAL HISTORY: Significant for prostate cancer, glaucoma, history of seizures, hyperlipidemia. MEDICATIONS: Include Colace, Lopid, MiraLax, Percocet, Rocephin, Tegretol, Tylenol and Xalatan. ALLERGIES: NO KNOWN DRUG ALLERGIES. FAMILY HISTORY: Noncontributory for this admission. SOCIAL HISTORY: No current smoking or EtOH use. REVIEW OF SYSTEMS: A 12-point review of systems was obtained. Positive for weakness, lethargy, back pain, urinary retention, weakness and numbness of the lower extremities, memory loss and constipation. Other systems are negative. PHYSICAL EXAMINATION: GENERAL: The patient is awake and answering questions, although he is a poor historian. His son is present and also helping with the history. VITAL SIGNS: He is afebrile at 97.4, pulse 86, BP 120/80, respirations 22. NECK: Supple. There is no adenopathy. CHEST: Exam of the chest reveals a normal inspiratory effort. CARDIAC: Exam shows positive S1, S2. ABDOMEN: There is some mild peripheral edema noted on abdominal exam. The abdomen is soft, nontender, nondistended. There is no hepatosplenomegaly. There is no apparent CVA tenderness. GENITOURINARY: Phallus is normal. There is a Bray catheter in place draining clear-colored urine. Scrotum normal. Testes bilaterally descended, nontender, no masses. Epididymides are normal. LABORATORY DATA. Creatinine normal with a GFR greater than 60, alk phos elevated at 214. PSA done today is at 166, hemoglobin 11, hematocrit 33.6. Urinalysis: Urine culture grew Enterococcus faecalis. On radiologic exam, the patient had a CT scan of the abdomen and pelvis which showed multiple enlarged lymph nodes in the left side of the pelvis. There was also para-aortic adenopathy and inguinal adenopathy. The MRI of the spine showed multiple masses within the lumbar vertebral bodies as well as upper sacral concerning for metastatic disease. There was retroperitoneal adenopathy, degenerative changes, mild narrowing of the thecal sac and narrowing of both lateral recesses at L4-5, foraminal narrowing L2-3 through L5-S1. 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 This has progressed quickly as apparently the last PSA is from our office recently and were low. The patient has been seen by Dr. Luz and offered palliative x-ray treatment to his spine. Urologically, for now I would recommend discontinuing the bicalutamide. I will check a testosterone level in the morning. I think the patient should be started on either Zytiga and prednisone Xtandi as soon as possible. As for the fairly of palliative radiation therapy, my recommendation would be for the patient to receive Xofigo if possible. However, this may be difficult to arrange unless Dr. Luz is able to provide that he here. Alternatively, the patient could have palliative radiation. For now, he should be continued on analgesics. Also would recommend the patient be started on Xgeva which he should receive monthly to improve his bone strength. Thank you for allowing me to participate the care of this patient. I will discuss his care with Dr. Bae, and I would also recommend and Oncology consult; possibly they can assist in helping the patient to obtain these medications while in the hospital. The patient should continue to follow up with me as well for Bray changes and also to continue treatment of his advanced prostate cancer. Henry Nascimento MD
--- NOTE | 2017-05-17 09:24 | CP.PCM.PN ---
Subjective - Date & Time of Evaluation Date of Evaluation: 05/17/17 Time of Evaluation: 09:30 - Subjective Subjective: Mr Mcadams has metastatic prostate cancer to the lumbar-sacral spine. We spoke to him about the palliative radiation therapy today. He is interested in proceeding. We will simulate him today. We will follow up on his bone scan as well. Objective - Vital Signs/Intake and Output Vital Signs (last 24 hours): Temp Pulse Resp BP Pulse Ox 97.9 F 81 22 144/61 97 05/17/17 07:45 05/17/17 07:45 05/17/17 07:45 05/17/17 07:45 05/17/17 07:45 Intake and Output: 05/17/17 05/17/17 06:59 18:59 Intake Total 840 Output Total 1325 Balance -485 - Medications Medications: Current Medications Acetaminophen (Tylenol 325mg Tab) 650 mg PO Q4H PRN PRN Reason: Pain, Mild (1-3) Carbamazepine (Tegretol) 200 mg PO TID COUNT INCLUDES [facility] PRN Reason: Protocol Last Admin: 05/16/17 17:05 Dose: 200 mg Docusate Sodium (Colace) 200 mg PO DAILY COUNT [facility]CLUDES [facility] Last Admin: 05/16/17 13:16 Dose: 200 mg Gemfibrozil (Lopid) 600 mg PO BID COUNT [facility]CLUD[facility] Last Admin: 05/16/17 17:05 Dose: 600 mg Latanoprost (Xalatan Opht) 0 ml OD DAILY [facility]CLUD[facility] Last Admin: 05/16/17 13:17 Dose: 2.5 ml Oxycodone/Acetaminophen (Percocet 5/325 Mg Tab) 1 tab PO Q4H PRN PRN Reason: Pain, moderate (4-7) Stop: 05/19/17 08:08 Last Admin: 05/17/17 07:00 Dose: 1 tab Polyethylene Glycol (Miralax) 17 gm PO BID COUNT [facility]CLUDES [facility] Last Admin: 05/16/17 17:05 Dose: 17 gm - Labs Labs: PT 12.4 SECONDS (9.4-12.5) 05/14/17 09:17 INR 1.08 (0.93-1.08) 05/14/17 09:17 APTT 31.9 Seconds (25.1-36.5) 05/14/17 09:17
[2017-05-17] MEDS: POLYETHYLENE GLYCOL 3350 17 GM/Dose PACKET PO SCH ×2 (09:58→18:13)
[2017-05-17] MEDS: Latanoprost 2.5 ml Opht Soln OD SCH (10:00)
--- NOTE | 2017-05-17 10:55 | CP.PCM.PN ---
Subjective - Date & Time of Evaluation Date of Evaluation: 05/17/17 Time of Evaluation: 11:00 - Subjective Subjective: Mr Mcadams came down today for a simulation for radiation therapy after speaking with the patient. We then held off on starting his radiation therapy after speaking with his son because they are currently waiting to discuss all his options further with Dr Nascimento before they commit to any local treatment. Dr Nascimento had met with them yesterday about various sytemic therapy options, and they wanted to speak with him again before they do anything. Objective - Vital Signs/Intake and Output Vital Signs (last 24 hours): Temp Pulse Resp BP Pulse Ox 97.9 F 81 22 144/61 97 05/17/17 07:45 05/17/17 07:45 05/17/17 07:45 05/17/17 07:45 05/17/17 07:45 Intake and Output: 05/17/17 05/17/17 06:59 18:59 Intake Total 840 Output Total 1325 Balance -485 - Medications Medications: Current Medications Acetaminophen (Tylenol 325mg Tab) 650 mg PO Q4H PRN PRN Reason: Pain, Mild (1-3) Carbamazepine (Tegretol) 200 mg PO TID [facility] PRN Reason: Protocol Last Admin: 05/17/17 09:58 Dose: 200 mg Docusate Sodium (Colace) 200 mg PO DAILY [facility] Last Admin: 05/17/17 09:57 Dose: 200 mg Gemfibrozil (Lopid) 600 mg PO BID [facility] Last Admin: 05/17/17 09:58 Dose: 600 mg Latanoprost (Xalatan Opht) 0 ml OD DAILY [facility] Last Admin: 05/16/17 13:17 Dose: 2.5 ml Oxycodone/Acetaminophen (Percocet 5/325 Mg Tab) 1 tab PO Q4H PRN PRN Reason: Pain, moderate (4-7) Stop: 05/19/17 08:08 Last Admin: 05/17/17 07:00 Dose: 1 tab Polyethylene Glycol (Miralax) 17 gm PO BID [facility] Last Admin: 05/17/17 09:58 Dose: 17 gm - Labs Labs: PT 12.4 SECONDS (9.4-12.5) 05/14/17 09:17 INR 1.08 (0.93-1.08) 05/14/17 09:17 APTT 31.9 Seconds (25.1-36.5) 05/14/17 09:17
--- NOTE | 2017-05-17 17:25 | NM ---
PROCEDURE: Whole Body Bone Scan HISTORY: pt w/ prostate cancer w/ bone mets COMPARISON: None available. TECHNIQUE: Following administration of 27.2 miCu of Tc MDP multiplanar whole body images were obtained. FINDINGS: Evidence for bony metastatic disease: Thoracolumbar spine, pelvis, proximal femurs, ribs, left scapula Degenerative uptake: None. Physiologic uptake: Normal physiologic activity in the kidneys. Other findings: None. IMPRESSION: Osseous metastatic disease primarily affecting the axial skeleton. Additional abnormal foci of increased uptake identified in left greater trochanter, right lesser trochanter, left scapula/glenoid.
--- NOTE | 2017-05-17 19:06 | PN ---
DATE: 05/17/2017 SUBJECTIVE: Patient is lying in bed. He complains of some low back pain and has difficulty moving. PHYSICAL EXAMINATION: VITAL SIGNS: Reveal temperature of 97.9, blood pressure of 144/61, heart rate of 81. HEENT: Reveal sclerae to be white. Conjunctivae pink. NECK: Supple. CHEST: Reveal lungs to be clear. HEART: Reveals regular rate and rhythm. ABDOMEN: Soft, nontender. No mass. EXTREMITIES: Show no edema. LABORATORY DATA: New laboratory data reveals a PSA of 166. IMPRESSION: 1. Prostate cancer with bone metastasis and retroperitoneal adenopathy. 2. Constipation. The patient finally move his bowels with MiraLax. RECOMMENDATIONS: 1. Palliative chemoradiation, Radiation Therapy has seen the patient. 2. Continue MiraLax 17 g twice a day. 3. Await results of bone scan. Tj Mora MD
[2017-05-18] MEDS: POLYETHYLENE GLYCOL 3350 17 GM/Dose PACKET PO SCH ×2 (09:53→17:43)
[2017-05-18] MEDS: Latanoprost 2.5 ml Opht Soln OD SCH (09:56)
[2017-05-18] MEDS: Oxycodone/Acetaminophen 5/325 mg Tab PO PRN ×2 (09:56→21:12)
--- NOTE | 2017-05-19 01:51 | CP.PCM.PN ---
Subjective - Date & Time of Evaluation Date of Evaluation: 05/19/17 Time of Evaluation: 11:00 - Subjective Subjective: Complaining of back pain. he is able to sit on chair. pain starts in back and radiates in front on abdomen. No nausea, no vomiting. Has holland's cath draining clear urine. Objective - Vital Signs/Intake and Output Vital Signs (last 24 hours): Temp Pulse Resp BP Pulse Ox 97.5 F L 80 18 145/70 96 05/18/17 07:30 05/18/17 07:30 05/18/17 07:30 05/18/17 07:30 05/18/17 07:30 Intake and Output: 05/18/17 05/19/17 18:59 06:59 Intake Total 600 480 Output Total 400 800 Balance 200 -320 - Medications Medications: Current Medications Acetaminophen (Tylenol 325mg Tab) 650 mg PO Q4H PRN PRN Reason: Pain, Mild (1-3) Carbamazepine (Tegretol) 200 mg PO TID [facility] PRN Reason: Protocol Last Admin: 05/18/17 17:43 Dose: 200 mg Docusate Sodium (Colace) 200 mg PO DAILY [facility] Last Admin: 05/18/17 09:53 Dose: 200 mg Gemfibrozil (Lopid) 600 mg PO BID [facility] Last Admin: 05/18/17 17:46 Dose: 600 mg Latanoprost (Xalatan Opht) 0 ml OD DAILY [facility] Last Admin: 05/18/17 09:56 Dose: 2.5 ml Oxycodone/Acetaminophen (Percocet 5/325 Mg Tab) 1 tab PO Q4H PRN PRN Reason: Pain, moderate (4-7) Stop: 05/19/17 08:08 Last Admin: 05/18/17 21:12 Dose: 1 tab Polyethylene Glycol (Miralax) 17 gm PO BID [facility] Last Admin: 05/18/17 17:43 Dose: 17 gm - Labs Labs: PT 12.4 SECONDS (9.4-12.5) 05/14/17 09:17 INR 1.08 (0.93-1.08) 05/14/17 09:17 APTT 31.9 Seconds (25.1-36.5) 05/14/17 09:17 - Constitutional Appears: Well, Non-toxic, Chronically Ill - Head Exam Head Exam: ATRAUMATIC, NORMAL INSPECTION, NORMOCEPHALIC - Eye Exam Eye Exam: Normal appearance - ENT Exam ENT Exam: Mucous Membranes Moist, Normal Exam - Neck Exam Neck Exam: Normal Inspection - Respiratory Exam Respiratory Exam: Clear to Ausculation Bilateral, NORMAL BREATHING PATTERN - Cardiovascular Exam Cardiovascular Exam: REGULAR RHYTHM, +S1, +S2 - GI/Abdominal Exam GI & Abdominal Exam: Soft, Normal Bowel Sounds - Back Exam Back Exam: NORMAL INSPECTION - Neurological Exam Neurological Exam: Alert, Normal Gait, Oriented x3 - Psychiatric Exam Psychiatric exam: Normal Affect, Normal Mood - Skin Skin Exam: Normal Color, Warm Assessment and Plan - Assessment and Plan (Free Text) Assessment: 1. Stage IV prostate cancer, bone mets. On lupron and casodex. radiation on hold. Son known to me , his was under my care. He has multiple questions regarding radiation, treatment of prostate cancer. I discussed with him options of treatment with [facility]. He will need monthly bisphosphnates for bony mets. It will help with pain and resolution of mets. Bone scan reviewed. Discussed with son and patient. 2. Back pain : Fentanyl patch 25 mcgm Q 72 hours. Oxycodone prn for breakthrough pain. 3. UTI : on ampicillin .
[2017-05-19] MEDS: POLYETHYLENE GLYCOL 3350 17 GM/Dose PACKET PO SCH ×3 (09:28→18:36)
[2017-05-19] MEDS: Latanoprost 2.5 ml Opht Soln OD SCH (09:28)
--- NOTE | 2017-05-19 15:49 | PN ---
DATE: 05/19/2017 SUBJECTIVE: The patient has no complaints of any chest pain or shortness of breath. He says his back pain is better with the pain medication. PHYSICAL EXAMINATION: VITAL SIGNS: Temperature is 98.2, pulse of 88, blood pressure is 167/78, respirations 18. GENERAL: The patient is lying in bed, flat, comfortable. HEENT: No oral lesion. Anicteric sclerae. Moist mucosa. NECK: No JVD, adenopathy, or thyromegaly. CARDIOVASCULAR: S1 and S2, regular. No murmurs, rubs, or gallops. LUNGS: Clear to auscultation bilaterally. No wheeze, rales, or rhonchi. ABDOMEN: Bowel sounds are positive, soft, nontender and nondistended. EXTREMITIES: no cyanosis, clubbing or edema. LABORATORY DATA: White count 6.3, hemoglobin is 11.1, creatinine is 0.8. Bone scan done shows osseous metastatic disease primarily affecting the axial skeleton. There is an increase uptake in left greater trochanter, left trochanter and left scapula. ASSESSMENT: 1. Abdominal pain resolved. 2. Back pain secondary to metastatic disease and prostate cancer. 3. Spinal stenosis. 4. Hepatomegaly. 5. An 11 mm right pole renal cyst. 6. Coronary artery disease. 7. Osteoarthritis. 8. Gait dysfunction secondary to back pain. 9. Pelvic adenopathy. 10. Urinary tract infection secondary to enterococcus. 11. Seizure disorder. PLAN: The patient is currently comfortable. He is getting physical therapy. He is on his eye drops. He is receiving carbamazepine for seizures. He is on Senokot for his constipation. The patient is on Lopid for his dyslipidemia. He is on a fentanyl patch for pain. He is on Colace. He is on a heart healthy diet. He is being followed up Dr. Nascimento and Dr. Mora. He is waiting to go to the Transitional Care Unit for rehab. Kenny Bae MD
--- NOTE | 2017-05-19 18:55 | PN ---
DATE: 05/19/2017 SUBJECTIVE: The patient is lying in bed, comfortable. He has been moving his bowels. He still complains of occasional low back pain, although this appears to be controlled with pain medications. He denies any nausea, vomiting or abdominal pain. OBJECTIVE: VITAL SIGNS: Reveal temperature of 98.2, blood pressure 167/78, heart rate of 88. HEENT: Reveal sclerae to be white. Conjunctivae pink. NECK: Supple. CHEST/LUNGS: Clear. HEART: Exam reveals a regular rate and rhythm. ABDOMEN: Soft, nontender. No mass. EXTREMITIES: Show no edema. LABORATORY DATA: There are no new laboratory data. Bone scan revealed multiple distant metastases to spine and ribs as well as the scapula. IMPRESSION: 1. Prostate cancer with bone metastases to spine and ribs. 2. Abdominal pain which is resolved. 3. Constipation. RECOMMENDATIONS/PLANS: For the patient to start radiation in the morning, followed by palliative chemotherapy. The patient is to receive a short course of radiation of approximately 9 to 10 days. Tj Mora MD
[2017-05-20 07:41] VITALS: RESP 20
--- NOTE | 2017-05-20 08:54 | PN ---
DATE: 05/18/2017 CHIEF COMPLAINT: Abdominal pain. HISTORY OF PRESENT ILLNESS: Patient with a history of prostate cancer who now has metastatic disease, presented with abdominal and back pain. Imaging has revealed metastatic disease in his spine and lymph nodes. OBJECTIVE: GENERAL: The patient is awake, alert and answering questions. VITAL SIGNS: He is afebrile 97.5, BP 145/70, pulse 80, respirations 18. ABDOMEN: Soft, nontender, nondistended. BACK: No CVA tenderness. The patient had a bone scan which showed evidence of metastatic disease, primarily affecting the axial skeleton. There is increased uptake in the left greater trochanter, right lesser trochanter, scapular glenoid on the left. There was nice thoracolumbar spine, pelvis, proximal femurs, ribs, and the left scapula. Testosterone level was low at 8. I discussed again with the patient, he is currently feeling better. He has been seen by Dr. Luz from Radiation Oncology and palliative radiation was recommended. I discussed with the patient that at this point, I would agree for the plan of the palliative radiation. When the patient is done, I would start him on Zytiga and prednisone or Xtandi. Plan for now would be to try medical therapy to improve his pain and reduce the metastatic disease along with the radiation. I am unsure if the patient would be a candidate for Xofigo after the radiation; however, I will refer him for further evaluation once his acute symptoms from the metastases have resolved. The patient agrees with this plan. He has already been marked, and I would recommend to proceed with palliative radiation. I have been working on obtaining the Zytiga for him, and we will start him on this as soon as he has improved and is discharged as an outpatient. Henry Nascimento MD
[2017-05-20] MEDS ORDERED: Oxycodone/Acetaminophen 5/325 mg Tab PO PRN (09:53)
[2017-05-20] MEDS: POLYETHYLENE GLYCOL 3350 17 GM/Dose PACKET PO SCH ×2 (10:54→18:04)
[2017-05-20] MEDS: Latanoprost 2.5 ml Opht Soln OD SCH (10:56)
--- NOTE | 2017-05-20 13:11 | CP.PCM.PN ---
Subjective - Date & Time of Evaluation Date of Evaluation: 05/20/17 Time of Evaluation: 01:00 - Subjective Subjective: We spoke to the patient and son again today after the bone scan findings. They are agreeable to proceeding with the radiation. We simulated him today and will begin shortly. Objective - Vital Signs/Intake and Output Vital Signs (last 24 hours): Temp Pulse Resp BP Pulse Ox 97.8 F 81 20 136/62 98 05/20/17 07:30 05/20/17 07:30 05/20/17 07:30 05/20/17 07:30 05/20/17 07:30 Intake and Output: 05/20/17 05/20/17 06:59 18:59 Intake Total 420 Output Total 1700 Balance -1280 - Medications Medications: Current Medications Acetaminophen (Tylenol 325mg Tab) 650 mg PO Q4H PRN PRN Reason: Pain, Mild (1-3) Last Admin: 05/20/17 03:26 Dose: 650 mg Carbamazepine (Tegretol) 200 mg PO TID [facility] PRN Reason: Protocol Last Admin: 05/20/17 10:54 Dose: 200 mg Docusate Sodium (Colace) 100 mg PO DAILY [facility] Last Admin: 05/20/17 10:54 Dose: 100 mg Fentanyl (Duragesic) 1 patch TD Q72H [facility] Last Admin: 05/19/17 04:30 Dose: 1 patch Gemfibrozil (Lopid) 600 mg PO BID [facility] Last Admin: 05/20/17 10:54 Dose: 600 mg Latanoprost (Xalatan Opht) 0 ml OD DAILY [facility] Last Admin: 05/20/17 10:56 Dose: 1 ml Oxycodone/Acetaminophen (Percocet 5/325 Mg Tab) 1 tab PO Q4H PRN PRN Reason: Pain, moderate (4-7) Stop: 05/23/17 09:54 Last Admin: 05/20/17 10:56 Dose: 1 tab Polyethylene Glycol (Miralax) 17 gm PO BID [facility] Last Admin: 05/20/17 10:54 Dose: 17 gm Sennosides (Senokot Tab) 8.6 mg PO DAILY [facility] Last Admin: 05/20/17 10:54 Dose: 8.6 mg - Labs Labs: PT 12.4 SECONDS (9.4-12.5) 05/14/17 09:17 INR 1.08 (0.93-1.08) 05/14/17 09:17 APTT 31.9 Seconds (25.1-36.5) 05/14/17 09:17
--- NOTE | 2017-05-20 13:44 | PN ---
DATE: 05/20/2017 SUBJECTIVE: The patient is lying in bed comfortable. He still has occasional back pain and left shoulder pain. He denies any rectal bleeding. He has been having regular bowel movements. He denies any rectal bleeding, abdominal pain, nausea or vomiting. OBJECTIVE: VITAL SIGNS: Reveal temperature of 97.8, blood pressure of 136/62, and heart rate of 81. HEENT: Reveal sclerae to be white. Conjunctivae pink. NECK: Supple. CHEST: Reveal lungs to be clear. HEART: Reveals regular rate and rhythm. ABDOMEN: Soft and nontender. EXTREMITIES: Show no edema. LABORATORY DATA: Reveal no new laboratory data. IMPRESSION: 1. Abdominal pain, resolved. 2. Constipation, improved with MiraLax. 3. Prostate cancer with multiple bone metastases including lumbar spine, left scapula, femur, and pelvis. RECOMMENDATIONS: Awaiting decision on palliative chemo radiation therapy. Tj Mora MD
[2017-05-20 17:57] VITALS: BP 132/69; PULSE 76; TEMP 97.4; O2SAT 96
--- NOTE | 2017-05-21 01:50 | DS ---
HISTORY OF PRESENT ILLNESS: This is an 87-year-old male who had come into the hospital with abdominal pain. The patient had abdominal pain that resolved. He did have a history of prostate cancer and further evaluation of his back pain indicated that he had mets. He had bone scan done that showed mets mostly in the axial skeleton. There is also increase uptake in the left great trochanter. The patient was being followed by Urology as well as Radiation Oncology. Plan was to do radiation and palliative treatment. Dr. Nascimento will be managing the patient's chemotherapy. The patient is feeling well and the pain is controlled with pain medications. He is on Percocet. He is also found to have UTI that was secondary to Enterococcus that was being treated. The patient has no complaints of any headaches or dizziness. No nausea. No vomiting. PHYSICAL EXAMINATION: VITAL SIGNS: Temperature is 97.5, pulse of 85, blood pressure 139/57, and respirations 18. GENERAL: The patient is lying in bed, flat, comfortable. HEENT: No oral lesion. Anicteric sclerae. Moist mucosa. NECK: No JVD, adenopathy, or thyromegaly. CARDIOVASCULAR: S1 and S2, regular. No murmurs, rubs, or gallops. LUNGS: Clear to auscultation bilaterally. No wheeze, rales, or rhonchi. ABDOMEN: Bowel sounds are positive, soft, nontender and nondistended. EXTREMITIES: No cyanosis, clubbing or edema. ASSESSMENT: 1. Abdominal pain, resolved. 2. Back pain secondary to metastatic disease from prostate cancer. 3. Spinal stenosis. 4. Hepatomegaly. 5. An 11-mm right pole renal cyst. 6. Coronary artery disease. 7. Osteoarthritis. 8. Gait dysfunction secondary to back pain. 9. Pelvic adenopathy. 10. Urinary tract infection secondary to Enterococcus. 11. Deconditioning. 12. Seizure disorder. PLAN: The patient is still not walking that well with physical therapy. He has been using eye drops for his glaucoma. He is on carbamazepine for his seizure. He is on Lopid for his dyslipidemia. The patient's pain is controlled with fentanyl patch. He is on MiraLax for his constipation as well as Senokot. He is on Tylenol as needed for pain, that is mild. He is on a heart-healthy diet. Awaiting for discharge to the Transitional Care Unit. We will await for TCU bed to be available, so the patient can be discharged. Kenny Bae MD
== END 2017-05-20 18:47 | DRG 543 ==
LOC: ED 07:47 → ERH 14:59 → 5RNO 20:31 → OBSVTOIN 05-15 15:35
PROVIDERS: ADMIT Internal Medicine Nephrology; ATTEND Internal Medicine Nephrology
DX: C79.51 Secondary malignant neoplasm of bone (principal); G89.3 Neoplasm related pain (acute) (chronic); R10.31 Right lower quadrant pain; N39.0 Urinary tract infection, site not specified; C61 Malignant neoplasm of prostate; K59.09 Other constipation; G40.909 Epilepsy, unspecified, not intractable, without status epilepticus; N28.1 Cyst of kidney, acquired; R16.0 Hepatomegaly, not elsewhere classified; B95.2 Enterococcus as the cause of diseases classified elsewhere; E78.5 Hyperlipidemia, unspecified; I25.10 Atherosclerotic heart disease of native coronary artery without angina pectoris; N40.0 Benign prostatic hyperplasia without lower urinary tract symptoms; R59.0 Localized enlarged lymph nodes; M51.36 Other intervertebral disc degeneration, lumbar region; R53.1 Weakness; H40.9 Unspecified glaucoma; G47.00 Insomnia, unspecified; K76.0 Fatty (change of) liver, not elsewhere classified; M19.90 Unspecified osteoarthritis, unspecified site; I25.2 Old myocardial infarction

== ENCOUNTER 2017-06-03 14:26 | Observation (INO) | payer MEDICARE ==
--- NOTE | 2017-06-03 14:54 | ED PDOC ---
Arrival/HPI - General Chief Complaint: Weakness/Neurological Deficit Time Seen by Provider: 06/03/17 14:30 Historian: Patient, Family (Son Tj) - History of Present Illness Time/Duration: Prior to Arrival Symptom Onset: Gradual Symptom Course: Unchanged Severity Level: Severe Activities at Onset: Rest Associated Symptoms (Text): 06/03/17 14:51 Patient complains of severe generalized weakness and fatigue. He lives at home alone and is unable to care for himself. He is unable to ambulate despite using a walker. He has prostate cancer with bone metastases. He was discharged from the hospital 2 days ago. Visiting nurse spoke with his PMD about making arrangements for longterm placement, and he was directed to the emergency department. No fever or chills. No cough congestion or URI. He has several falls at home over the weekend, but denies any injury. Past Medical History - Infectious Disease Hx of Infectious Diseases: None - Cardiac Hx Cardiac Disorders: Yes - Pulmonary Hx Respiratory Disorders: No - Neurological Hx Neurological Disorder: Yes Hx Seizures: Yes - HEENT Hx HEENT Disorder: Yes Hx Glaucoma: Yes - Renal Hx Renal Disorder: No - Endocrine/Metabolic Hx Endocrine Disorders: No - Hematological/Oncological Hx Blood Disorders: No - Integumentary Hx Dermatological Disorder: No - Musculoskeletal/Rheumatological Hx Arthritis: Yes - Gastrointestinal Hx Gastrointestinal Disorders: Yes - Genitourinary/Gynecological Hx Genitourinary Disorders: Yes Hx Reproductive Disorders: No - Psychiatric Hx Psychophysiologic Disorder: No Hx Substance Use: No Other/Comment: patient has indwelling catheter - Anesthesia Hx Anesthesia: No Family/Social History - Physician Review Nursing Documentation Reviewed: Yes Family/Social History: Unknown Family HX Smoking Status: Never Smoked Hx Alcohol Use: No Hx Substance Use: No Allergies/Home Meds Allergies/Adverse Reactions: Allergies No Known Allergies Allergy (Verified 05/20/17 20:06) Home Medications: Home Meds Medication Instructions Recorded Confirmed Bicalutamide [Casodex] 50 mg PO DAILY 04/08/16 05/20/17 Carbamazepine 200 mg PO TID 04/08/16 05/20/17 Cyanocobalamin (Vitamin B-12) 1,000 mcg PO DAILY 04/08/16 05/20/17 [B-12] Gemfibrozil 600 mg PO BID 04/08/16 05/20/17 Multivit-Min/FA/Lycopen/Lutein 1 tab PO DAILY 04/08/16 05/20/17 [Centrum Silver Tablet] Niotaze-3 Fatty Acids [Fish Oil] 100 mg PO DAILY 04/08/16 05/20/17 Omeprazole 40 mg PO DAILY 04/08/16 05/20/17 Polyethylene Glycol 3350 [Gavilax] 5 ml PO DAILY 04/08/16 05/20/17 Ubidecarenone [Coq10] 100 mg PO DAILY 04/08/16 05/20/17 Latanoprost 0.005% Opht [Xalatan 1 drp OP HS 05/14/17 05/20/17 Opht] Magnesium Gluconate 500 mg PO DAILY 05/14/17 05/20/17 Review of Systems - Physician Review All systems were reviewed & negative as marked: Yes - Review of Systems Constitutional: Fatigue. absent: Fevers Respiratory: absent: SOB, Cough, Sputum Cardiovascular: absent: Chest Pain, Palpitations, Syncope Gastrointestinal: absent: Abdominal Pain, Nausea, Vomiting Musculoskeletal: Back Pain Neurological: absent: Headache, Dizziness, Focal Weakness Physical Exam Vital Signs Temp Pulse Resp BP Pulse Ox 06/03/17 15:17 98.4 F 90 24 130/62 97 Temperature: Afebrile Blood Pressure: Normal Pulse: Regular Respiratory Rate: Normal Appearance: Positive for: Well-Appearing, Non-Toxic, Uncomfortable, Other ( Chronically ill-appearing) Pain Distress: None Mental Status: Positive for: Alert and Oriented X 3 - Systems Exam Head: Present: Atraumatic, Normocephalic Pupils: Present: PERRL Extroacular Muscles: Present: EOMI Conjunctiva: Present: Normal Mouth: Present: Moist Mucous Membranes Pharnyx: No: ERYTHEMA, EXUDATE, TONSILS ENLARGED Neck: Present: Normal Range of Motion Respiratory/Chest: Present: Clear to Auscultation, Good Air Exchange, Decreased Breath Sounds. No: Respiratory Distress, Accessory Muscle Use Cardiovascular: Present: Regular Rate and Rhythm, Normal S1, S2. No: Murmurs Abdomen: Present: Normal Bowel Sounds. No: Tenderness, Distention, Peritoneal Signs, Rebound, Guarding Back: Present: Normal Inspection, Paraspinal Tenderness. No: CVA Tenderness, Midline Tenderness Upper Extremity: Present: Normal Inspection. No: Cyanosis, Edema Lower Extremity: Present: Normal Inspection. No: Edema Neurological: Present: GCS=15, CN II-XII Intact, Speech Normal, Motor Func Grossly Intact, Other (Unable to ambulate) Skin: Present: Warm, Dry, Normal Color. No: Rashes Psychiatric: Present: Alert, Oriented x 3, Normal Insight, Normal Concentration Medical Decision Making ED Course and Treatment: 06/03/17 16:39 Seen and evaluated in the emergency department by social media content manager. Patient will be placed on a [facility] observation bed with physical therapy consult and placement in the morning. Discussed with . Disposition/Present on Arrival - Present on Arrival Any Indicators Present on Arrival: No History of DVT/PE: No History of Uncontrolled Diabetes: No Urinary Catheter: Yes History of Decub. Ulcer: No History Surgical Site Infection Following: None - Disposition Have Diagnosis and Disposition been Completed?: Yes Diagnosis: Prostate cancer, Weakness, Unable to ambulate Disposition: HOSPITALIZED Disposition Time: 16:40 Patient Plan: Observation Condition: FAIR Discharge Instructions (ExitCare): Weakness (ED) Referrals: Glynn Shields MD [Primary Care Provider] - Follow up with primary Forms: [employer] ([place])
[2017-06-03 16:14] VITALS: BMI 25.7
[2017-06-03] MEDS ORDERED: Influenza Vaccine 60 mcg/0.5 mL SYR (4YR UP) IM ONE (20:35)
[2017-06-03] MEDS ORDERED: Pneumococcal 23-Valent Vaccine IM ONE (20:35)
[2017-06-03] MEDS: Latanoprost 2.5 ml Opht Soln OD SCH (22:45)
[2017-06-03] MEDS: Oxycodone/Acetaminophen 5/325 mg Tab PO SCH (22:45)
[2017-06-04] MEDS: Oxycodone/Acetaminophen 5/325 mg Tab PO SCH ×2 (09:46→22:32)
--- NOTE | 2017-06-04 18:55 | HP ---
CHIEF COMPLAINT AND HISTORY OF PRESENT ILLNESS: This is an 87-year-old male who is coming in to the hospital after having multiple falls at home. The patient states that he went home from the transitional care unit 3 days ago and was having difficulty in ambulating. I spoke to the patient's son, Tj. He said that he had been having difficulty with ambulating, especially with weakness in the knees. The patient says that his knees are not strong enough to support his body at times and he is falling. He denies any back pain. No new weakness in the arms or the legs, but mostly in the knees. He has no complaints of chest pain or shortness of breath. No abdominal pain or back pain. No dysuria, frequency, or nocturia. All other review of symptoms are within normal limits except what was mentioned. ALLERGIES: NO KNOWN DRUG ALLERGIES. HOME MEDICATIONS: He is on Casodex, carbamazepine, vitamin B12, gemfibrozil, fish oil, omeprazole, GaviLAX, Xalatan. SOCIAL HISTORY: He does not smoke, drink, or use drugs. FAMILY HISTORY: Noncontributory. PAST MEDICAL HISTORY: 1. 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 2. Urinary retention with chronic Bray catheter. 3. Back pain secondary to prostate cancer. 4. Spinal stenosis. 5. Hepatomegaly. 6. Coronary artery disease. 7. Osteoarthritis. 8. An 11-mm right renal cyst. 9. Gait dysfunction secondary to back pain. 10. UTI secondary to enterococcus. 11. Pelvic adenopathy. 12. Seizures. PHYSICAL EXAMINATION: VITAL SIGNS: He has a temperature of 98.4, pulse of 86, blood pressure is 128/65, respirations 18, O2 saturations 97%. Height is 5 feet 10 inches, weight is 179 pounds. GENERAL: The patient lying in bed, uncomfortable, and in no acute distress. HEENT: Atraumatic and normocephalic. Anicteric sclerae. Moist mucosa. [place] conjunctivae. No oral lesions. NECK: No JVD, anterior and posterior adenopathy, thyromegaly, or bruits. CARDIOVASCULAR: S1 and S2 regular. No murmur, rubs, or gallop. LUNGS: Clear to auscultation bilaterally. No wheezes, rales, or rhonchi. ABDOMEN: Bowel sounds are positive. Soft, nontender and nondistended. No hepatosplenomegaly. No rebound and no guarding. EXTREMITIES: No cyanosis, clubbing, or edema. NEUROLOGIC: No facial asymmetry. Tongue is midline. No uvula deviation. Power is 5/5 upper extremity and lower extremity. Sensation intact in upper extremity and lower extremity. PSYCHIATRIC: He is awake, alert and oriented x3. No anxiety or depression. He has normal affect. GENITOURINARY: No CVA tenderness. VASCULAR: 2+ pulses in the carotid pulses and pedal pulses. SKIN: No erythema or nodules SPINE: Shows normal curvature. LABORATORY DATA: No new labs. ASSESSMENT: 1. Gait dysfunction. 2. 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 3. Urinary retention with chronic Bray catheter. 4. Back pain secondary to prostate cancer. 5. Spinal stenosis. 6. Hepatomegaly. 7. Coronary artery disease. 8. Osteoarthritis. 9. An 11-mm right renal cyst. 10. Seizures. 11. Deconditioning. PLAN: The patient is going to be admitted to the hospital. Patient is going to be brought in as an observation. He is unable to ambulate. He will need physical therapy. He may need subacute rehab. I did speak to Henrietta from case management to let her know that the importance of trying to get this patient to subacute rehab. The patient has been given the influenza shot. He is on fentanyl for pain. The patient is on Percocet for pain as well. He is going to continue with his Tegretol for his seizures. The patient is on Xalatan for his eye. He is on a regular diet. The patient is not complaining of any pain. We will attempt to get his last radiation treatment today. Hopefully, he can be discharged to a rehab facility. Kenny Bae MD
[2017-06-04] MEDS: Latanoprost 2.5 ml Opht Soln OD SCH (22:32)
[2017-06-05] MEDS: Oxycodone/Acetaminophen 5/325 mg Tab PO SCH ×2 (09:05→21:44)
[2017-06-05] MEDS: Latanoprost 2.5 ml Opht Soln OD SCH (21:45)
--- NOTE | 2017-06-05 23:17 | CON ---
DATE: 06/05/2017 REASON FOR CONSULTATION: Stage IV prostatic cancer. CONSULT REQUESTED BY: Dr. Sierra. HISTORY OF PRESENT ILLNESS: Mr. Mcadams is an 87-year-old male, admitted to the hospital with difficulty in ambulating. He was admitted earlier in April with abdominal pain radiating in the front and was found to have metastatic lesions in the spine. Nuclear bone scan showed multiple skeletal masses in the axial skeleton, lumbosacral spine, in humerus and femur and scapula. He is currently on fentanyl patch 25 mcg with Percocet for breakthrough pain. He completed his last radiation today. He has an indwelling Bray catheter. He is complaining of generalized weakness in legs. He was diagnosed with prostate cancer in 2016. He has been on Casodex and Lupron since then. CAT scan of the abdomen reviewed, done in April, showed generalized lymphadenopathy. The largest lymph node in the abdomen measured 3 cm on the left side of the pelvis. He has multiple other comorbid conditions listed below. Pain is controlled with current medication regimen. ALLERGIES: No known drug allergies. HOME MEDICATION: Casodex, carbamazepine, B12, fish oil, omeprazole, Xalatan. PAST MEDICAL HISTORY: Urinary retention, Bray catheter, back pain, spinal stenosis, hepatomegaly, coronary artery disease, osteoarthritis, renal cyst, gait dysfunction, seizures. PERSONAL HISTORY: Nonsmoker, no history of alcohol abuse. SOCIAL HISTORY: Lives at home, alone. FAMILY HISTORY: Noncontributory. REVIEW OF SYSTEMS: As per HPI. Rest of 12-point review of systems reviewed negative. PHYSICAL EXAMINATION GENERAL: Comfortable in bed, in no acute distress VITAL SIGNS: Temperature 98.8, heart rate is 80 per minute, blood pressure 120/70, respiratory rate 15 per minute, oxygen saturation 98% on room air. HEENT: No lymphadenopathy. Pallor positive. CHEST: Air entry present and equal bilaterally. No added sounds. CARDIOPULMONARY: S1 and S2 normal. No murmur, no gallop. ABDOMEN: Soft, nontender, no hepatosplenomegaly. EXTREMITIES: No edema. Bray catheter draining clear urine. SPINE: Nontender. SKIN: No petechia. No rash. WIRELESS SALES REPRESENTATIVE: Alert and oriented x3. No focal sensory or motor deficit. LABORATORY DATA: No current labs. Last PSA was 166. ASSESSMENT: 1. Prostate cancer stage IV with metastatic lesions in the bone. Intraabdominal lymphadenopathy. 2. Urinary retention, has an indwelling Bray catheter. 3. Spinal stenosis. 4. Coronary artery disease. 5. Osteoarthritis. 6. Deconditioning and gait dysfunction. PLAN: 1. He is currently on Casodex and Lupron. He has metastatic lesions in the bones and intraabdominal lymph nodes. I would recommend Zytiga with prednisone 5 mg p.o. b.i.d. He will need monthly bisphosphonates for bony metastatic lesions. Will monitor calcium and vitamin D. He will need calcium and vitamin D supplements. I had a lengthy discussion with Mr. Mcadams today. He wants me to talk to his son, Tj, who will discuss with Dr. Nascimento. 2. Pain is controlled with fentanyl 25 and Percocet for breakthrough pain. Will recommend continuing the same regimen. Bowel regimen with that, to be given Senna, Colace b.i.d. 3. Gait dysfunction. He will need subacute rehab. Will order labs for the morning, CBC, BMP, PSA. We will also order first dose of Zometa after evaluation of renal function. Thank you Dr. Sierra for allowing us to participate in Mr. Shay' care. Veronique Kim MD
[2017-06-06 00:57] LABS: PH,URINE 5.5 (4.7-8.0); URINE BILIRUBIN NEGATIVE (NEGATIVE); URINE BLOOD SMALL (NEGATIVE); URINE GLUCOSE (UA) NEGATIVE (NEGATIVE); URINE LEUKOCYTE ESTERASE TRACE Leu/uL (NEGATIVE); URINE NITRATE NEGATIVE (NEGATIVE); URINE PROTEIN NEGATIVE mg/dL (<30 mg/dL); URINE UROBILINOGEN 0.2 E.U./dL (<1 E.U./dL)
[2017-06-06 01:09] LABS: URINE APPEARANCE CLEAR (CLEAR); URINE COLOR YELLOW (YELLOW)
[2017-06-06 01:12] LABS: URINE BACTERIA OCC (NEG); URINE EPITHELIAL CELLS 0 - 2 /hpf (0-5)
--- NOTE | 2017-06-06 03:17 | DS ---
HISTORY OF PRESENT ILLNESS: This is an 87-year-old male who had come in to the hospital because of frequent falls. He was discharged from the Transitional Care Unit. He had 10 treatments of radiation for his prostate cancer to his back. He is waiting to go to subacute rehab facility for physical therapy. Patient's pain is comfortable. He has no complaints of any chest pain, shortness of breath, headaches, or dizziness. PHYSICAL EXAMINATION: VITAL SIGNS: Temperature 97.7, pulse is 74, blood pressure is 133/60, respirations 19. GENERAL: The patient is lying in bed, flat, comfortable. HEENT: No oral lesion. Anicteric sclerae. Moist mucosa. NECK: No JVD, adenopathy, or thyromegaly. CARDIOVASCULAR: S1 and S2, regular. No murmurs, rubs, or gallops. LUNGS: Clear to auscultation bilaterally. No wheeze, rales, or rhonchi. ABDOMEN: Bowel sounds are positive, soft, nontender and nondistended. EXTREMITIES: No cyanosis, clubbing or edema. ASSESSMENT: 1. Gait dysfunction. 2. Falls. 3. 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 4. 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 5. Back pain secondary to prostate cancer. 6. Spinal stenosis. 7. Hepatomegaly. 8. Coronary artery disease. 9. Osteoarthritis. 10. An 11-mm right renal cyst. 11. Seizure. 12. Deconditioning. PLAN: The patient is on carbamazepine for his seizures. He is going to continue with fentanyl patch for his pain. He is also getting Percocet for breakthrough pain. Patient is on gemfibrozil for his dyslipidemia. He is on eye drops. He is on a regular diet. He was seen by Physical Therapy yesterday, and it was recommended that the patient go to subacute rehab. Kenny Bae MD
[2017-06-06 06:34] LABS: IRON 115 ug/dL (45-180)
[2017-06-06 06:43] LABS: % IRON SATURATION 50 % (20-55); TOTAL IRON BINDING CAPACITY 229 ug/dL (261-462)
[2017-06-06 07:09] LABS: ALB/GLOB RATIO 1.1 (1.1-1.8); ALBUMIN 3.3 g/dL (3.0-4.8); ALT/SGPT 22 U/L (7-56); AST/SGOT 27 U/L (17-59); BLOOD UREA NITROGEN 20 mg/dL (7-21); CALCIUM 9.2 mg/dL (8.4-10.5); GFR AFRICAN-AMERICAN > 60; GFR NON-AFRICAN AMERICAN > 60
[2017-06-06 07:12] LABS: BASO # 0.01 K/mm3 (0.0-2.0); BASO % 0.5 % (0.0-3.0); EOS % 1.9 % (1.5-5.0); GRAN # 0.6 (1.4-6.5); GRAN % 28.4 % (50.0-68.0); HEMOGLOBIN 9.8 g/dL (14.0-18.0); LYMPH # 1.2 (1.2-3.4); LYMPH % 56.9 % (22.0-35.0); MEAN CELL VOLUME 93.9 fl (80.0-105.0); MEAN CORPUSCULAR HEMOGLOBIN 31.2 pg (25.0-35.0); MEAN CORPUSCULAR HGB CONC 33.2 g/dl (31.0-37.0); MEAN PLATELET VOLUME 9.6 fl (7.0-11.0); MONO # 0.3 (0.1-0.6); MONO % 12.3 % (1.0-6.0); RBC 3.14 10^6/uL (3.5-6.1); RED CELL DISTRIBUTION WIDTH 13.3 % (11.5-14.5)
[2017-06-06 08:14] LABS: WHITE BLOOD COUNT 2.1 10^3/ul (4.5-11.0)
[2017-06-06 08:55] VITALS: BP 141/63; PULSE 74; RESP 20; TEMP 98.2; O2SAT 95
[2017-06-06] MEDS: Oxycodone/Acetaminophen 5/325 mg Tab PO SCH (10:41)
--- NOTE | 2017-06-06 11:22 | PN ---
DATE: 06/06/2017 SUBJECTIVE: The patient has no complaints of any chest pain or shortness of breath. No headaches. He states that he is comfortable. PHYSICAL EXAMINATION GENERAL: The patient is lying in bed, flat, comfortable. VITAL SIGNS: Temperature is 97.8, pulse is 78, blood pressure 134/67, and respirations 19. HEENT: No oral lesion. Anicteric sclerae. Moist mucosa. NECK: No JVD, adenopathy, or thyromegaly. CARDIOVASCULAR: S1 and S2, regular. No murmurs, rubs, or gallops. LUNGS: Clear to auscultation bilaterally. No wheeze, rales, or rhonchi. ABDOMEN: Bowel sounds are positive. Soft, nontender and nondistended. EXTREMITIES: No cyanosis, clubbing or edema. ASSESSMENT 1. Gait dysfunction. 2. Falls. 3. Metastatic hormone-resistant prostate cancer, status post radiation x10 treatments. 4. Urinary retention, right obstructive uropathy with chronic Bray catheter. 5. Back pain secondary to prostate cancer. 6. Spinal stenosis. 7. Hepatomegaly. 8. Coronary artery disease. 9. Osteoarthritis. 10. An 11-mm right renal cyst. 11. Seizures. 12. Deconditioning. PLAN: The patient is awaiting placement to subacute rehabilitation. The drug abuse social worker, Natty, did speak with the patient's son. Unfortunately, [facility] is not in network. The patient may need to go to a Facility. I did speak to the patient's son, Tj yesterday to explain to him regarding the subacute rehabilitation. He said that his dad is not able to go to [facility] - to him, this is an insurance issue. I also advised him that I would not be able to take care of his dad at . The patient is on fentanyl patch - this will be continued. He is also receiving Percocet for breakthrough pain and Tegretol for his seizures. He is tolerating his regular diet. No other issues according to the nursing staff. Kenny Bae MD
[2017-06-06 13:21] LABS: FOLATE 9.5 ng/mL
--- NOTE | 2017-06-06 17:08 | CP.PCM.CON ---
History of Present Illness - History of Present Illness History of Present Illness: 87 year old male with PMH of prostate cancer on Lupron treatment once a month ( hormonal treatment), seizure disorder, glaucoma, history of Klebsiella UTI [place] [facility] [place] of generalized [place] and fatigue. He is being treated for the weakness with supportive and is now planned to be transferred to a rehab center. There was an apparent episode of fever for this patient, although there are no records to support this. The patient denies having fever or chills, no headache or dizziness, no chest pain, no SOB, no cough or rhinorrhea, no sore throat, no body aches, no abdominal pain, no diarrhea, no dysuria. Infectious Diseases consult is requested to further evaluate and manage. Review of Systems - Review of Systems All systems: reviewed and no additional remarkable complaints except (as per HPI ) Past Patient History - Infectious Disease Hx of Infectious Diseases: None - Past Social History Smoking Status: Former Smoker - CARDIAC Hx Cardiac Disorders: No - PULMONARY Hx Respiratory Disorders: Yes (H/O SMOKING CIGARETTES) Other/Comment: EMPYEMA/SARCOIDOSIS - NEUROLOGICAL Hx Neurological Disorder: Yes Hx Dizziness: Yes (syncope) Hx Seizures: Yes (last seizure 20 yrs ago) - HEENT Hx HEENT Problems: Yes Hx Cataracts: Yes (with bilateral sx) Hx Glaucoma: Yes - RENAL Hx Chronic Kidney Disease: Yes Other/Comment: chronic holland-Prostate ca. - ENDOCRINE/METABOLIC Hx Endocrine Disorders: No - HEMATOLOGICAL/ONCOLOGICAL Hx Blood Disorders: Yes (radiation theraphy had 9 rounds already) Hx Cancer: Yes (prostate ca with mets to bones) - INTEGUMENTARY Hx Dermatological Problems: Yes Other/Comment: 218 bilateral le edema +2 more to right .Pitting with dry thin scaly flakes. - MUSCULOSKELETAL/RHEUMATOLOGICAL Hx Arthritis: Yes - GASTROINTESTINAL Hx Gastrointestinal Disorders: Yes (constipation) - GENITOURINARY/GYNECOLOGICAL Hx Genitourinary Disorders: Yes Hx Urinary Tract Infection: Yes - PSYCHIATRIC Hx Psychophysiologic Disorder: Yes Hx Substance Use: No - SURGICAL HISTORY Hx Surgeries: Yes (lung sx,right foot sx-clubbed foot,bilateral cataract sx.) - ANESTHESIA Hx Anesthesia: No Meds Allergies/Adverse Reactions: Allergies Allergy/AdvReac Type Severity Reaction Status Date / Time No Known Allergies Allergy Verified 06/03/17 18:53 - Medications Medications: Current Medications Carbamazepine (Tegretol) 200 mg PO TID [facility] PRN Reason: Protocol Last Admin: 06/05/17 17:41 Dose: 200 mg Fentanyl (Duragesic) 1 patch TD Q72H [facility] Last Admin: 06/03/17 20:54 Dose: Not Given Gemfibrozil (Lopid) 600 mg PO BID [facility] Last Admin: 06/05/17 17:42 Dose: 600 mg Latanoprost (Xalatan Opht) 0.05 ml OD HS [facility] Last Admin: 06/05/17 21:45 Dose: 0.05 ml Oxycodone/Acetaminophen (Percocet 5/325 Mg Tab) 1 tab PO Q12 [facility] Stop: 06/06/17 22:01 Last Admin: 06/05/17 21:44 Dose: 1 tab Physical Exam - Constitutional Appears: Non-toxic, Chronically Ill - Head Exam Head Exam: NORMAL INSPECTION - ENT Exam ENT Exam: Mucous Membranes Moist - Neck Exam Neck exam: Negative for: Meningismus - Respiratory Exam Respiratory Exam: Decreased Breath Sounds - Cardiovascular Exam Cardiovascular Exam: +S1, +S2 - GI/Abdominal Exam GI & Abdominal Exam: Soft. absent: Tenderness Results - Vital Signs Recent Vital Signs: Last Vital Signs Temp 97.8 F 06/05/17 16:00 Pulse 78 06/05/17 16:00 Resp 19 06/05/17 16:00 BP 134/67 06/05/17 16:00 Pulse Ox 97 06/05/17 16:00 - Labs Result Diagrams: 06/06/17 05:30 06/06/17 05:30 Assessment & Plan - Assessment and Plan (Free Text) Plan: Assessment Leukopenia probably from cancer, no evidence of sepsis or infection identified history of Klebsiella urinary tract infection in a patient with prostate cancer and increased urinary incontinence Mechanical fall, etiology to be determined prostate cancer on Lupron treatment once a month (hormonal treatment) seizure disorder glaucoma Plan monitor off antibiotics
== END 2017-06-06 13:18 ==
LOC: ED 14:26 → ERH 16:38 → 3RNO 18:58
PROVIDERS: ADMIT Internal Medicine Nephrology; ATTEND Internal Medicine Nephrology
DX: R53.1 Weakness (principal); C79.51 Secondary malignant neoplasm of bone; C61 Malignant neoplasm of prostate; R29.6 Repeated falls; R26.2 Difficulty in walking, not elsewhere classified; G89.3 Neoplasm related pain (acute) (chronic); I25.10 Atherosclerotic heart disease of native coronary artery without angina pectoris; N28.1 Cyst of kidney, acquired; M48.00 Spinal stenosis, site unspecified; R16.0 Hepatomegaly, not elsewhere classified; M19.90 Unspecified osteoarthritis, unspecified site; R59.1 Generalized enlarged lymph nodes; N13.9 Obstructive and reflux uropathy, unspecified; G40.909 Epilepsy, unspecified, not intractable, without status epilepticus; M54.9 Dorsalgia, unspecified; Z92.3 Personal history of irradiation; Z87.891 Personal history of nicotine dependence
CPT/HCPCS: 36415; 80053; 81001; 82607; 82728; 82746; 83540; 83550; 84145; 84153; 85025; 87040; 87086; 97116; 97162; 97530; 99285; G0378; G8978; G8979

== ENCOUNTER 2017-07-21 17:44 | Observation (INO) | payer MEDICARE ==
[2017-07-21 17:59] VITALS: BMI 24.3
--- NOTE | 2017-07-21 18:19 | ED PDOC ---
Arrival/HPI - General Chief Complaint: Weakness/Neurological Deficit Time Seen by Provider: 07/21/17 18:03 Historian: Patient, Family - History of Present Illness Narrative History of Present Illness (Text): 07/21/17 18:13 87 year old male, whose history includes prostate cancer that has metastasized, presents to the Emergency department due to frequent falls. Patient had been receiving 10 treatments of radiation to his pelvis and lower spine in April. After being discharged from the hospital, patient fell twice. Patient then spent time in a rehabilitation facility. Patient returned to his son's home approximately 10 days ago, and fell once yesterday and once today. Patient states his legs are too weak and cannot support his weight, even with the assistance of his walker. Patient's son is not as concerned with injury from the falls, but rather the weakness and lack of balance. Today, patient also developed a cough that causes abdominal pain that radiates around to the back and shoulder. Patient denies any fever, chills, chest pain, shortness of breath, nausea, vomiting, diarrhea, urinary symptoms, neck pain, headache, or any other complaints. Time/Duration: 24 hours Symptom Onset: Gradual Symptom Course: Unchanged Activities at Onset: Light Context: Walking, Home Past Medical History - Provider Review Nursing Documentation Reviewed: Yes - Infectious Disease Hx of Infectious Diseases: None - Cardiac Hx Cardiac Disorders: No - Pulmonary Hx Respiratory Disorders: Yes (H/O SMOKING CIGARETTES) Other/Comment: EMPYEMA/SARCOIDOSIS - Neurological Hx Dizziness: Yes (syncope) Hx Seizures: Yes (last seizure 20 yrs ago) - HEENT Hx Cataracts: Yes (with bilateral sx) - Renal Hx Renal Disorder: Yes Other/Comment: chronic holland-Prostate ca. - Endocrine/Metabolic Hx Endocrine Disorders: No - Hematological/Oncological Hx Blood Disorders: Yes (radiation theraphy had 9 rounds already) Hx Cancer: Yes (prostate ca with mets to bones) - Integumentary Hx Dermatological Disorder: Yes Other/Comment: 06-03-17 bilateral le edema +2 more to right .Pitting with dry thin scaly flakes. - Musculoskeletal/Rheumatological Hx Musculoskeletal Disorders: Yes Hx Falls: Yes (18) Hx Unsteady Gait: Yes (walker) - Gastrointestinal Hx Gastrointestinal Disorders: Yes (constipation) - Genitourinary/Gynecological Hx Urinary Tract Infection: Yes - Psychiatric Hx Psychophysiologic Disorder: Yes Hx Substance Use: No - Anesthesia Hx Anesthesia: No Family/Social History - Physician Review Nursing Documentation Reviewed: Yes Family/Social History: Unknown Family HX Smoking Status: Former Smoker Hx Alcohol Use: Yes (occasional) Hx Substance Use: No Allergies/Home Meds Allergies/Adverse Reactions: Allergies No Known Allergies Allergy (Verified 06/03/17 18:53) Home Medications: Home Meds Medication Instructions Recorded Confirmed Bicalutamide [Casodex] 1 tab PO DAILY 07/21/17 07/21/17 Carbamazepine [Carbatrol] 1 tab PO TID 07/21/17 07/21/17 Fentanyl [Fentanyl] 25 mcg TOP Q72H 07/21/17 07/21/17 Gemfibrozil [Lopid] 1 tab PO BID 07/21/17 07/21/17 Omeprazole [Omeprazole] 1 cap PO DAILY 07/21/17 07/21/17 oxyCODONE/Acetaminophen [Percocet 1 tab PO Q12H PRN 07/21/17 07/21/17 5/325 mg Tab] Review of Systems - Physician Review All systems were reviewed & negative as marked: Yes - Review of Systems Constitutional: absent: Fevers, Night Sweats Respiratory: Cough. absent: SOB Cardiovascular: absent: Chest Pain Gastrointestinal: Abdominal Pain. absent: Diarrhea, Nausea, Vomiting Genitourinary Male: absent: Dysuria Musculoskeletal: Back Pain. absent: Neck Pain Neurological: Other (general weakness). absent: Headache Physical Exam Vital Signs Reviewed: Yes Vital Signs Temp Pulse Resp BP Pulse Ox 07/21/17 17:54 98.2 F 98 H 20 158/60 H 98 Temperature: Afebrile Blood Pressure: Hypertensive Pulse: Tachycardic Respiratory Rate: Normal Appearance: Positive for: Well-Appearing, Non-Toxic, Comfortable Pain Distress: None Mental Status: Positive for: Alert and Oriented X 3 - Systems Exam Head: Present: Atraumatic, Normocephalic Pupils: Present: PERRL Extroacular Muscles: Present: EOMI Conjunctiva: Present: Normal Mouth: Present: Moist Mucous Membranes Neck: Present: Normal Range of Motion Respiratory/Chest: Present: Rhonchi Cardiovascular: Present: Regular Rate and Rhythm, Normal S1, S2. No: Murmurs Abdomen: Present: Normal Bowel Sounds. No: Tenderness, Distention, Peritoneal Signs Back: Present: Normal Inspection Upper Extremity: Present: Normal Inspection. No: Cyanosis, Edema Lower Extremity: Present: Normal Inspection. No: Edema Neurological: Present: GCS=15, CN II-XII Intact, Speech Normal Skin: Present: Warm, Dry, Normal Color. No: Rashes Psychiatric: Present: Alert, Oriented x 3, Normal Insight, Normal Concentration Medical Decision Making ED Course and Treatment: 07/21/17 18:22 Impression: 87 year old male presents to the Emergency department due to frequent falls. Plan: -- Chest xray, pelvis xray -- EKG -- Urine culture, blood culture -- Urinalysis -- VBG -- Labs -- Reassess and disposition Prior Visits: Notes and results from previous visits were reviewed. Patient was last seen in the emergency department on 06/03/17, was diagnosed with Prostate cancer, Weakness, Unable to ambulate, and was hospitalized. Progress Notes: - Lab Interpretations Lab Results: 07/21/17 19:00 07/21/17 19:00 Lab Results 07/21/17 19:00: Sodium 144, Chloride 107, Potassium 4.6, Carbon Dioxide 27, Anion Gap 15, BUN 27 H, Creatinine 0.9, Est GFR ( Amer) > 60, Est GFR ( Non-Af Amer) > 60, Random Glucose 95, Calcium 9.5, Total Bilirubin 0.2, AST 42, ALT 27, Alkaline Phosphatase 146 H D, Lactate Dehydrogenase 441, Total Creatine Kinase 29 L, Troponin I < 0.01 D, NT-Pro-B Natriuret Pep 1200 H, Total Protein 7.0, Albumin 3.8, Globulin 3.2, Albumin/Globulin Ratio 1.2 07/21/17 19:00: pO2 32, VBG pH 7.34, VBG pCO2 53.0, VBG HCO3 28.6 H, VBG Total CO2 30.2 H, VBG O2 Sat (Calc) 59.5, VBG Base Excess 1.8, VBG Potassium 4.1, Sodium 141.0, Chloride 107.0, Glucose 89, Lactate 0.7, FiO2 21.0, Venous Blood Potassium 4.1 07/21/17 19:00: Urine Color Light yellow, Urine Appearance Cloudy, Urine pH 6.0 , Ur Specific [place] 1.025, Urine Protein 30 H, Urine Glucose (UA) Negative, Urine Ketones Negative, Urine Blood Moderate H, Urine Nitrate Positive H, Urine Bilirubin Negative, Urine Urobilinogen 0.2, Ur Leukocyte Esterase Moderate H, Urine RBC 5 - 10, Urine WBC Tntc, Ur Epithelial Cells 0 - 2, Urine Bacteria Small 07/21/17 19:00: PT 13.5 H, INR 1.18 H 07/21/17 19:00: WBC 5.5 D, RBC 3.36 L, Hgb 10.3 L, Hct 31.5 L, MCV 93.8, MCH 30.7, MCHC 32.7, RDW 15.1 H, Plt Count 176, MPV 8.8, Gran % 33.0 L, Lymph % ( Auto) 54.2 H, [place] % (Auto) 12.1 H, Eos % (Auto) 0.5 L, Baso % (Auto) 0.2, Gran # 1.83, Lymph # (Auto) 3.0, [place] # (Auto) 0.7 H, Eos # (Auto) 0.0, Baso # (Auto ) 0.01 - RAD Interpretation Radiology Orders: 07/21/17 18:12 CHEST PORTABLE [RAD] Stat PELVIS ONE VIEW [RAD] Stat - EKG Interpretation EKG Interpretation (Text): 07/21/17 18:56 EKG: Ordered, reviewed, and independently interpreted the EKG. Rate : 91 BPM Rhythm : NSR Interpretation : RBBB. Interpreted by ED Physician: Yes Type: 12 lead EKG - Medication Orders Current Medication Orders: Ceftriaxone Sodium (Rocephin 2 Gm Ivpb) 2 gm in 100 mls @ 100 mls/hr IVPB STAT STA PRN Reason: Protocol Stop: 07/21/17 21:44 - PA / INVESTIGATIVE WRITER / Resident Statement MD/DO has reviewed & agrees with the documentation as recorded. - Scribe Statement The provider has reviewed the documentation as recorded by the Scriblilia De Santiago Provider Scribe Attestation: All medical record entries made by the Scribe were at my direction and personally dictated by me. I have reviewed the chart and agree that the record accurately reflects my personal performance of the history, physical exam, medical decision making, and the department course for this patient. I have also personally directed, reviewed, and agree with the discharge instructions and disposition. Disposition/Present on Arrival - Present on Arrival Any Indicators Present on Arrival: No History of DVT/PE: No History of Uncontrolled Diabetes: No Urinary Catheter: Yes History of Decub. Ulcer: No History Surgical Site Infection Following: None - Disposition Have Diagnosis and Disposition been Completed?: Yes Diagnosis: Urinary tract infection, Weakness, Unable to ambulate Disposition: HOSPITALIZED Disposition Time: 21:07 Patient Plan: Admission Condition: FAIR Discharge Instructions (ExitCare): Weakness (ED) Referrals: Glynn Shields MD [Primary Care Provider] - Follow up with primary Forms: [employer] (Fijian)
[2017-07-21 19:19] LABS: BASO # 0.01 K/mm3 (0.0-2.0); BASO % 0.2 % (0.0-3.0); EOS % 0.5 % (1.5-5.0); GRAN # 1.83 (1.4-6.5); HEMOGLOBIN 10.3 g/dL (14.0-18.0); LYMPH % 54.2 % (22.0-35.0); MEAN CELL VOLUME 93.8 fl (80.0-105.0); MEAN CORPUSCULAR HEMOGLOBIN 30.7 pg (25.0-35.0); MEAN CORPUSCULAR HGB CONC 32.7 g/dl (31.0-37.0); MEAN PLATELET VOLUME 8.8 fl (7.0-11.0); MONO # 0.7 (0.1-0.6); MONO % 12.1 % (1.0-6.0); RBC 3.36 10^6/uL (3.5-6.1); RED CELL DISTRIBUTION WIDTH 15.1 % (11.5-14.5); WHITE BLOOD COUNT 5.5 10^3/ul (4.5-11.0)
[2017-07-21 19:22] LABS: VENOUS BLOOD GAS BASE EXCESS 1.8 mmol/L (0.0-2.0); VENOUS BLOOD GAS PO2 32 mm/Hg (30-55); VENOUS BLOOD PH 7.34 (7.32-7.43)
[2017-07-21 19:26] LABS: URINE BILIRUBIN NEGATIVE (NEGATIVE); URINE BLOOD MODERATE (NEGATIVE); URINE GLUCOSE (UA) NEGATIVE (NEGATIVE); URINE LEUKOCYTE ESTERASE MODERATE Leu/uL (NEGATIVE); URINE PROTEIN 30 mg/dL (<30 mg/dL); URINE UROBILINOGEN 0.2 E.U./dL (<1 E.U./dL)
[2017-07-21 19:27] LABS: ALB/GLOB RATIO 1.2 (1.1-1.8); ALBUMIN 3.8 g/dL (3.0-4.8); ALT/SGPT 27 U/L (7-56); AST/SGOT 42 U/L (17-59); BLOOD UREA NITROGEN 27 mg/dL (7-21); CALCIUM 9.5 mg/dL (8.4-10.5); GFR AFRICAN-AMERICAN > 60; GFR NON-AFRICAN AMERICAN > 60
[2017-07-21 19:28] LABS: URINE APPEARANCE CLOUDY (CLEAR); URINE COLOR LIGHT YELLOW (YELLOW)
[2017-07-21 19:40] LABS: INR 1.18 (0.93-1.08); PROTHROMBIN TIME 13.5 SECONDS (9.4-12.5)
[2017-07-21 19:41] LABS: B-TYPE NATRIURETIC PEPTIDE 1200 pg/mL (0-450); TROPONIN I < 0.01 ng/mL
[2017-07-21 19:44] LABS: URINE BACTERIA SMALL (NEG); URINE EPITHELIAL CELLS 0 - 2 /hpf (0-5); URINE WBC TNTC /hpf (0-6)
[2017-07-21] MEDS ORDERED: cefTRIAXone 2 GM IN NS 2 GM/100 ML BAG IVPB STA (20:45)
[2017-07-22] MEDS: Oxycodone/Acetaminophen 5/325 mg Tab PO PRN ×4 (00:22→22:34)
[2017-07-22] MEDS: Cefepime 1gm in NS 100ml 1 GM/100 ML BAG IVPB SCH ×3 (05:33→22:26)
[2017-07-22 07:43] VITALS: RESP 20
--- NOTE | 2017-07-22 08:41 | RAD ---
HISTORY: Cough, Ronchi COMPARISON: 05/14/2017. FINDINGS: LUNGS: The lungs are hyperinflated and there is peribronchial thickening with chronic changes in both lungs. There is bibasilar atelectasis/scarring. PLEURA: No significant pleural effusion identified, no pneumothorax apparent. CARDIOVASCULAR: Normal. OSSEOUS STRUCTURES: No significant abnormalities. VISUALIZED UPPER ABDOMEN: Normal. OTHER FINDINGS: None. IMPRESSION: No active pulmonary disease. COPD.
--- NOTE | 2017-07-22 08:50 | RAD ---
PROCEDURE: Radiographs of the pelvis. HISTORY: Fall Mets to bone from prostate, ? Fx COMPARISON: 04/08/2016. FINDINGS: BONES: The pelvic ring is intact. There is diffuse bone demineralization. There is no acute displaced fracture or bone destruction. JOINTS: There is moderate degenerative osteoarthrosis in the hip joints. There is also mild degenerative osteoarthrosis in the sacroiliac joints. OTHER FINDINGS: None. IMPRESSION: No acute displaced fracture or dislocation. Please note occult fractures cannot be excluded on plain radiographs. If there is a persistent clinical concern, an MRI without contrast may be performed for further evaluation.
[2017-07-22] MEDS ORDERED: CARBAMAZEPINE PO SCH (10:00)
--- NOTE | 2017-07-22 10:06 | CARD ---
APPROVED REPORT EKG Measurement Heart [id number] <Conclusion> Normal sinus rhythm Right bundle branch block
--- NOTE | 2017-07-22 10:21 | CP.PCM.CON ---
History of Present Illness - History of Present Illness History of Present Illness: Mr Mcadams is a 87 year old male who is known to our department. 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 In 2016, he had an elevation in his PSA. A TRUS with biopsy showed adenocarcinoma of the prostate, [place] 5+4=9 in 05/10, [place] 4+5=9 08/08, [place] 4+4=8 06/10, [place] 4+3=7 05/10. He was on ADT and anti-androgen therapy. Over the past 3-4 weeks, he has been having worsening lower back pain with radiation anteriorly. He had a CT of the abdomen and pelvis on April revealed par-aortic lymphadenopathy as well as pelvic lymphadenopathy. A MRI of the lumbar spine on May 15, 2017 revealed retroperitoneal lymphadenopathy. There was asymmetric prostate suspicious for neoplasm. There were metastatic lesions in the lumbar and sacral spine. He received palliative radiation to the T12- sacrum as well as bilateral hips which he completed on June 04, 2017. He stated improvement in the pain, however he was still having issues with deconditioning. He stated that since we last saw him, he was in rehabilitation center briefly which improved his strength a little, however he could not stay longer there due to his insurance. Since then , he has been at home using a walker, however he fell over the weekend because of his leg weakness and inability to support his weight which was an issue with the last admission. He denies any bowel incontinence. His urinary incontinence has been chronic. He states that he has pain in the lower back with radiation to the lower abdomen and bilateral knees. We were asked to see him for our input. Review of Systems - Constitutional Constitutional: Weakness - Genitourinary Genitourinary: Urinary Incontinence - Musculoskeletal Musculoskeletal: Abnormal Gait, Back Pain, Muscle Weakness Past Patient History - Infectious Disease Hx of Infectious Diseases: None - Past Social History Smoking Status: Former Smoker Alcohol: None Home Situation {Lives}: Alone - CARDIAC Hx Cardiac Disorders: No - PULMONARY Hx Respiratory Disorders: Yes (H/O SMOKING CIGARETTES) Other/Comment: EMPYEMA/SARCOIDOSIS - NEUROLOGICAL Hx Dizziness: Yes (syncope) Hx Seizures: Yes (last seizure 20 yrs ago) - HEENT Hx Cataracts: Yes (with bilateral sx) - RENAL Hx Chronic Kidney Disease: Yes Other/Comment: chronic [place]-Prostate ca. - ENDOCRINE/METABOLIC Hx Endocrine Disorders: No - HEMATOLOGICAL/ONCOLOGICAL Hx Blood Disorders: Yes (radiation theraphy had 9 rounds already) Hx Cancer: Yes (prostate ca with mets to bones) - INTEGUMENTARY Hx Dermatological Problems: Yes Other/Comment: 06-03-17 bilateral le edema +2 more to right .Pitting with dry thin scaly flakes. - MUSCULOSKELETAL/RHEUMATOLOGICAL Hx Falls: Yes - GASTROINTESTINAL Hx Gastrointestinal Disorders: Yes (constipation) - GENITOURINARY/GYNECOLOGICAL Hx Urinary Tract Infection: Yes - PSYCHIATRIC Hx Psychophysiologic Disorder: Yes Hx Substance Use: No - SURGICAL HISTORY Hx Surgeries: Yes (lung sx,right foot sx-clubbed foot,bilateral cataract sx.) - ANESTHESIA Hx Anesthesia: No Meds Allergies/Adverse Reactions: Allergies Allergy/AdvReac Type Severity Reaction Status Date / Time No Known Allergies Allergy Verified 06/03/17 18:53 - Medications Medications: Current Medications Carbamazepine (Tegretol) 200 mg PO TID TARA PRN Reason: Protocol Cefepime HCl (Maxipime 1gm) 1 gm in 100 mls @ 100 mls/hr IVPB Q8 TARA PRN Reason: Protocol Stop: 07/31/17 06:01 Last Admin: 07/22/17 05:33 Dose: 100 mls/hr Oxycodone/Acetaminophen (Percocet 5/325 Mg Tab) 1 tab PO Q4 PRN PRN Reason: Pain, moderate (4-7) Stop: 07/25/17 00:01 Last Admin: 07/22/17 06:10 Dose: 1 tab Physical Exam - Eye Exam Eye Exam: EOMI - ENT Exam ENT Exam: Mucous Membranes Moist - Respiratory Exam Respiratory Exam: Clear to Auscultation Bilateral - Cardiovascular Exam Cardiovascular Exam: REGULAR RHYTHM - GI/Abdominal Exam GI & Abdominal Exam: Normal Bowel Sounds - Neurological Exam Neurological exam: CN II-XII Intact, Oriented x3 Additional comments: Lower extremity strength is 4/5. Upper extremity strength is intact Results - Vital Signs Recent Vital Signs: Last Vital Signs Temp 99 F 07/22/17 07:42 Pulse 94 H 07/22/17 07:42 Resp 20 07/22/17 07:42 BP 146/65 07/22/17 07:42 Pulse Ox 95 07/22/17 07:42 - Labs Result Diagrams: 07/21/17 19:00 07/21/17 19:00 Assessment & Plan - Assessment and Plan (Free Text) Assessment: Mr Mcadams has metastatic prostate cancer to the bone. He completed palliative radiation to the lower back and hips in May 2017. He continues to suffer from pain in the same region that we previously treated. He is deconditioned which has been an issue even from the prior admission. We stated that he may need more support at home given his deconditioned state and the fact that he lives alone. It is not clear whether he has seen the medical oncologist regarding bisphosphonates for his bone metastases and continued androgen deprivation therapy to keep his cancer controlled. At the moment, there is no role for radiation.
--- NOTE | 2017-07-22 19:48 | CP.PCM.CON ---
History of Present Illness - History of Present Illness History of Present Illness: 87 year old male with PMH of prostate cancer with metastasis on Lupron treatment (hormonal treatment) and radiation therapy to the pelvic area and lumbar spine, seizure disorder, glaucoma, history of Klebsiella UTI, was brought in to [facility] [place] because of increasing weakness and increasing falls. He is also having some dysuria. He denies flank pain, no nausea or vomiting, no headache or dizziness, no chest pain, no SOB but has some cough, no fever or chills, no abdominal pain, no diarrhea. In the ED, urinalysis shows pyuria. Infectious Diseases consult is requested to further evaluate and manage. Review of Systems - Review of Systems All systems: reviewed and no additional remarkable complaints except (as per HPI ) Past Patient History - Infectious Disease Hx of Infectious Diseases: None - Past Social History Smoking Status: Former Smoker - CARDIAC Hx Cardiac Disorders: No - PULMONARY Hx Respiratory Disorders: Yes (H/O SMOKING CIGARETTES) Other/Comment: EMPYEMA/SARCOIDOSIS - NEUROLOGICAL Hx Dizziness: Yes (syncope) Hx Seizures: Yes (last seizure 20 yrs ago) - HEENT Hx Cataracts: Yes (with bilateral sx) - RENAL Hx Chronic Kidney Disease: Yes Other/Comment: chronic hol[place]-Prostate ca. - ENDOCRINE/METABOLIC Hx Endocrine Disorders: No - HEMATOLOGICAL/ONCOLOGICAL Hx Blood Disorders: Yes (radiation theraphy had 9 rounds already) Hx Cancer: Yes (prostate ca with mets to bones) - INTEGUMENTARY Hx Dermatological Problems: Yes Other/Comment: 18 bilateral le edema +2 more to right .Pitting with dry thin scaly flakes. - MUSCULOSKELETAL/RHEUMATOLOGICAL Hx Falls: Yes - GASTROINTESTINAL Hx Gastrointestinal Disorders: Yes (constipation) - GENITOURINARY/GYNECOLOGICAL Hx Urinary Tract Infection: Yes - PSYCHIATRIC Hx Psychophysiologic Disorder: Yes Hx Substance Use: No - SURGICAL HISTORY Hx Surgeries: Yes (lung sx,right foot sx-clubbed foot,bilateral cataract sx.) - ANESTHESIA Hx Anesthesia: No Meds Allergies/Adverse Reactions: Allergies Allergy/AdvReac Type Severity Reaction Status Date / Time No Known Allergies Allergy Verified 06/03/17 18:53 - Medications Medications: Current Medications Cefepime HCl (Maxipime 1gm) 1 gm in 100 mls @ 100 mls/hr IVPB Q8 TARA PRN Reason: Protocol Stop: 07/31/17 06:01 Last Admin: 07/22/17 05:33 Dose: 100 mls/hr Non-Formulary Medication (Carbamazepine [Carbatrol]) 1 tab PO TID TARA Oxycodone/Acetaminophen (Percocet 5/325 Mg Tab) 1 tab PO Q4 PRN PRN Reason: Pain, moderate (4-7) Stop: 07/25/17 00:01 Last Admin: 07/22/17 06:10 Dose: 1 tab Physical Exam - Constitutional Appears: Chronically Ill - Head Exam Head Exam: NORMAL INSPECTION - ENT Exam ENT Exam: Mucous Membranes Moist - Neck Exam Neck exam: Negative for: Meningismus - Respiratory Exam Respiratory Exam: Decreased Breath Sounds - Cardiovascular Exam Cardiovascular Exam: +S1, +S2 - GI/Abdominal Exam GI & Abdominal Exam: Soft. absent: Tenderness Results - Vital Signs Recent Vital Signs: Last Vital Signs Temp 98.2 F 07/21/17 17:54 Pulse 88 07/21/17 22:14 Resp 18 07/21/17 22:14 BP 143/67 07/21/17 22:14 Pulse Ox 98 07/21/17 22:14 - Labs Result Diagrams: 07/21/17 19:00 07/21/17 19:00 Assessment & Plan - Assessment and Plan (Free Text) Plan: Assessment consider UTI in this patient with prostate cancer with metastasis history of Klebsiella urinary tract infection Mechanical fall, etiology to be determined prostate cancer on Lupron treatment once a month (hormonal treatment) seizure disorder glaucoma Plan started patient on Cefepime pending blood and urine cx will monitor clinically
--- NOTE | 2017-07-22 20:14 | HP ---
CHIEF COMPLAINT AND HISTORY OF PRESENT ILLNESS: This is an 87-year-old male who is coming in to the hospital with a history of prostate cancer with metastasis. The patient has been having falls at home. He has been recently
[2017-07-23] MEDS: Cefepime 1gm in NS 100ml 1 GM/100 ML BAG IVPB SCH ×3 (06:03→21:51)
[2017-07-23] MEDS: Oxycodone/Acetaminophen 5/325 mg Tab PO PRN ×4 (06:38→22:48)
--- NOTE | 2017-07-23 08:11 | PN ---
DATE: 07/23/2017 SUBJECTIVE: The patient has no complaints of any chest pain. No shortness of breath. No headaches or dizziness. PHYSICAL EXAMINATION: VITAL SIGNS: Temperature is 99.4, pulse is 79, blood pressure is 133/58, respirations 20. GENERAL: The patient is lying in bed, flat, comfortable. HEENT: No oral lesion. Anicteric sclerae. Moist mucosa. NECK: No JVD, adenopathy, or thyromegaly. CARDIOVASCULAR: S1 and S2, regular. No murmurs, rubs, or gallops. LUNGS: Clear to auscultation bilaterally. No wheeze, rales, or rhonchi. ABDOMEN: Bowel sounds are positive, soft, nontender and nondistended. EXTREMITIES: No cyanosis, clubbing or edema. LABORATORY DATA: White count of 5.5, hemoglobin 10.3. Creatinine 0.9. ASSESSMENT: 1. Falls. 2. Gait dysfunction. 3. Metastatic hormone-resistant prostate cancer, status post radiation. 4. 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 5. Back pain secondary to prostate cancer. 6. Spinal stenosis. 7. Hepatomegaly. 8. Coronary artery disease. 9. Osteoarthritis. 10. An 11-mm right renal cyst. 11. Seizure disorder. 12. Deconditioning. PLAN: The patient is currently comfortable. He is getting physical therapy. He has back pain secondary to his metastatic prostate cancer. I appreciate Dr. Luz's note regarding no further radiation. The patient is on cefepime for antibiotics, waiting for urine cultures. The patient is on Percocet for pain. He is on Tegretol for his seizure disorders and a heart-healthy diet. The patient was seen by Physical Therapy yesterday and it is recommended the patient go to subacute rehab. I did speak to the patient's son yesterday, Tj, to give him an update on the patient's diagnosis, plan of care. Kenny Bae MD
--- NOTE | 2017-07-23 20:32 | HP ---
CHIEF COMPLAINT AND HISTORY OF PRESENT ILLNESS: This is an 87-year-old male who is coming into the hospital after he had a fall. The patient has a history of prostate cancer with metastasis and has received radiation, 10 cycles. The patient had gone to rehab facility after his previous admission at [facility] and was discharged to home. The patient had been at home for about a week and a half and then came into the ER because he was having difficulty in ambulating. The patient states that his legs are very weak. He is having difficulty in supporting his legs. The patient denies any headaches or dizziness. No dysuria or frequency. No nocturia. No weakness of the arms or legs. No chest pain. No shortness of breath. All other review of symptoms are within normal limits except what was mentioned. ALLERGIES: NO KNOWN DRUG ALLERGIES. HOME MEDICATIONS: Have been reviewed on the [facility]. PAST MEDICAL HISTORY: 1. Metastatic hormone-resistant prostate cancer, status post radiation. 2. Urinary retention with Bray catheter. 3. Back pain secondary to prostate cancer. 4. Spinal stenosis. 5. Hepatomegaly. 6. Coronary artery disease. 7. Osteoarthritis. 8. Gait dysfunction secondary to back pain. 9. UTI secondary to Enterococcus. 10. Pelvic adenopathy. 11. Seizure disorder. SOCIAL HISTORY: Does not smoke, drink, or use drugs. FAMILY HISTORY: Noncontributory. PHYSICAL EXAMINATION: VITAL SIGNS: The patient has a temperature of 98.2, pulse of 98, blood pressure is 158/60, respirations 20, O2 saturation 98%. Height is 5 feet 10 inches. Weight is 163 pounds. BMI is 23.4. GENERAL: The patient lying in bed, uncomfortable, and in no acute distress. HEENT: Atraumatic and normocephalic. Anicteric sclerae. Moist mucosa. Mcdonough conjunctivae. No oral lesions. NECK: No JVD, anterior and posterior adenopathy, thyromegaly, or bruits. CARDIOVASCULAR: S1 and S2 regular. No murmur, rubs, or gallop. LUNGS: Clear to auscultation bilaterally. No wheezes, rales, or rhonchi. ABDOMEN: Bowel sounds are positive. Soft, nontender and nondistended. No hepatosplenomegaly. No rebound and no guarding. EXTREMITIES: No cyanosis, clubbing, or edema. NEUROLOGIC: No facial asymmetry. Tongue is midline. No uvula deviation. Power is 5/5 upper extremity and lower extremity. Sensation intact in upper extremity and lower extremity. PSYCHIATRIC: He is awake, alert and oriented x3. No anxiety or depression. He has normal affect. GENITOURINARY: No CVA tenderness. VASCULAR: 2+ pulses in the carotid pulses and pedal pulses. SKIN: No erythema or nodules SPINE: Shows normal curvature. GAIT: The patient was not seen ambulating. His urine culture showed gram-negative rods. LABORATORY DATA: Labs have been reviewed. White count of 5.5, hemoglobin 10.3. Sodium 144, potassium 4.6. Troponin 0.01. Urine shows nitrites are positive, blood is moderate. ASSESSMENT: 1. Urinary tract infection. 2. Gait dysfunction. 3. Metastatic hormone-resistant prostate cancer. 4. Back pain. 5. Spinal stenosis. 6. Hepatomegaly. 7. Coronary artery disease. 8. Osteoarthritis. 9. Seizure disorder. 10. Deconditioning. PLAN: The patient is currently on cefepime for antibiotics. He had cultures that were negative. The patient has been started on physical therapy. The patient would most likely need subacute rehab. The patient is going to be on Percocet for pain. He is on carbamazepine for his seizure disorder. I did speak to the patient's son, Tj, to give him an update of the patient's diagnosis and plan of care. Kenny Bae MD
--- NOTE | 2017-07-24 02:17 | PN ---
DATE: 07/23/2017 SUBJECTIVE: The patient is in bed, in no acute distress, nontoxic. PHYSICAL EXAMINATION VITAL SIGNS: Temperature is 99, blood pressure is 130/50, respiratory rate of 20, heart rate of 92. HEENT: Unremarkable. NECK: Supple. LUNGS: Have decreased breath sounds. HEART: Normal S1, S2. ABDOMEN: Soft. LABORATORY EXAMINATION: Reveals a white count of 5.5, hemoglobin of 10, platelets of 176. Chemistries reveal a BUN of 10, creatinine of 0.9. Urinalysis is noted and microbiology revels gram-negative olimpia in the urine. The blood cultures are reported to be negative. MEDICATIONS: The patient is currently on cefepime. ASSESSMENT AND PLAN: An 87-year-old male who was seen early this morning in 576, bed 1 with a history of prostate cancer who was admitted with gram-negative olimpia urinary tract infection with low-grade fevers and tachycardia with a pulse of 92 and 98. We will check on the identifications, gram-negative olimpia. We will make further recommendations. Evangelist García MD
[2017-07-24] MEDS: Cefepime 1gm in NS 100ml 1 GM/100 ML BAG IVPB SCH ×2 (05:58→18:51)
[2017-07-24] MEDS: Oxycodone/Acetaminophen 5/325 mg Tab PO PRN (10:11)
[2017-07-24] MEDS ORDERED: Docusate-Senna 50 mg-8.6 mg Tab PO SCH (10:15)
--- NOTE | 2017-07-24 11:28 | CP.PCM.CON ---
History of Present Illness - History of Present Illness History of Present Illness: Palliative consult requested by Dr New Bae Reason: Goals of care/advance care planning/ 87 year old male with history of metastatic prostate cancer s/p palliative RT who presented after suffering a fall at home. He complains of difficulty ambulating,back pain and weakness in his legs. He denied fever, chills, nausea, vomiting, diarrhea, chest pain shortness of breath or dysuria. PMHx: hormone resistant metastatic postage cancer, s/p palliate RT , BPH, spinal srenosis, CAD, seizure disorder, hepatomegaly, UTI and osteoarthritis. Social History:Non smoker, no alcohol or drug use. Lives independently, but now needs assist with most ADL's Family History: Non contributory. Advance Care Planning: The patient does not have an Advanced Directive. His son Tj Mcadams is his POA Review of System: Weakness in legs, abdominal/back pain,difficulty ambulating, otherwise negative review Past Patient History - Infectious Disease Hx of Infectious Diseases: None - Past Social History Smoking Status: Former Smoker - CARDIAC Hx Cardiac Disorders: No - PULMONARY Hx Respiratory Disorders: Yes (H/O SMOKING CIGARETTES) Other/Comment: EMPYEMA/SARCOIDOSIS - NEUROLOGICAL Hx Dizziness: Yes (syncope) Hx Seizures: Yes (last seizure 20 yrs ago) - HEENT Hx Cataracts: Yes (with bilateral sx) - RENAL Hx Chronic Kidney Disease: Yes Other/Comment: chronic [place]-Prostate ca. - ENDOCRINE/METABOLIC Hx Endocrine Disorders: No - HEMATOLOGICAL/ONCOLOGICAL Hx Blood Disorders: Yes (radiation theraphy had 9 rounds already) Hx Cancer: Yes (prostate ca with mets to bones) - INTEGUMENTARY Hx Dermatological Problems: Yes Other/Comment: 2--18 bilateral le edema +2 more to right .Pitting with dry thin scaly flakes. - MUSCULOSKELETAL/RHEUMATOLOGICAL Hx Falls: Yes - GASTROINTESTINAL Hx Gastrointestinal Disorders: Yes (constipation) - GENITOURINARY/GYNECOLOGICAL Hx Urinary Tract Infection: Yes - PSYCHIATRIC Hx Psychophysiologic Disorder: Yes Hx Substance Use: No - SURGICAL HISTORY Hx Surgeries: Yes (lung sx,right foot sx-clubbed foot,bilateral cataract sx.) - ANESTHESIA Hx Anesthesia: No Meds Allergies/Adverse Reactions: Allergies Allergy/AdvReac Type Severity Reaction Status Date / Time No Known Allergies Allergy Verified 06/03/17 18:53 - Medications Medications: Current Medications Carbamazepine (Tegretol) 200 mg PO TID TARA PRN Reason: Protocol Last Admin: 07/24/17 09:10 Dose: 200 mg Fentanyl (Duragesic) 1 patch TD Q72H TARA Cefepime HCl (Maxipime 1gm) 1 gm in 100 mls @ 100 mls/hr IVPB Q8 TARA PRN Reason: Protocol Stop: 07/31/17 06:01 Last Admin: 07/24/17 05:58 Dose: 100 mls/hr Oxycodone/Acetaminophen (Percocet 5/325 Mg Tab) 1 tab PO Q4 PRN PRN Reason: Pain, moderate (4-7) Stop: 07/25/17 00:01 Last Admin: 07/24/17 10:11 Dose: 1 tab Senna/Docusate Sodium (Senokot S 50 Mg-8.6 Mg) 1 tab PO DAILY TARA Physical Exam - Constitutional Appears: Chronically Ill - Head Exam Head Exam: NORMAL INSPECTION - Eye Exam Eye Exam: Normal appearance, PERRL - ENT Exam ENT Exam: Mucous Membranes Moist, Normal Oropharynx - Neck Exam Neck exam: Positive for: Normal Inspection - Respiratory Exam Respiratory Exam: Decreased Breath Sounds, NORMAL BREATHING PATTERN - Cardiovascular Exam Cardiovascular Exam: REGULAR RHYTHM, +S1, +S2 - GI/Abdominal Exam GI & Abdominal Exam: Normal Bowel Sounds, Soft, Tenderness - Extremities Exam Extremities exam: Positive for: normal capillary refill Additional comments: 1 + bilateral edema of both feet - Back Exam Back exam: NORMAL INSPECTION, vertebral tenderness - Neurological Exam Neurological exam: Oriented x3 - Skin Skin Exam: Dry, Pallor - Additional Findings Additional findings: Palliative performance scale rating 40% Results - Vital Signs Recent Vital Signs: Last Vital Signs Temp 98.7 F 07/24/17 08:00 Pulse 85 07/24/17 08:00 Resp 20 07/24/17 08:00 BP 141/60 07/24/17 08:00 Pulse Ox 96 07/24/17 08:00 - Labs Result Diagrams: 07/21/17 19:00 07/21/17 19:00 Assessment & Plan - Assessment and Plan (Free Text) Assessment: 87 year old male with history of metastatic prostate cancer, CAD, seizure disorder, HTN, hepatomegaly who us admitted with UTI, gait dysfunction, abdominal/ back pain. Mr Mcadams is alert, he complains of diffuse abdominal pain which radiates to back, states its 10/10. He denies urinary burning. He state he had a bowel movement prior to admission. He is weak. He is having difficulty concentrating because he is anxious and uncomfortable. Patient was on Fentanyl 25 mcg prior to admission which had states been controlling his pain. I also spoke with patient in the presence of his son regarding advance care planning. The patient does not want CPR/intubation/dialysis or permanent artificial feeding tube. POLST directive explained.Questions answered. POLST DNR /DNI completed . A copy is placed in the chart Time spent in goals of care and advance care planning, 30 minutes Plan: Pain management: Fentanyl 25mcg transdermal patch now. Continue Percocet for break though pain as needed. Would refer back to oncology, may benefit from bisphospinate therapy Opioid induced constipation: Senna/Docusate daily. UTI: complete antibiotic therapy Gait dysfunction: continue physical therapy, possible transition to [facility] Goals of care and advance care planning> POLST: DNR/DNI
[2017-07-24] MEDS ORDERED: Oxycodone/Acetaminophen 5/325 mg Tab PO PRN (14:20)
--- NOTE | 2017-07-24 21:28 | PN ---
DATE: 07/24/2017 SUBJECTIVE: Patient was seen earlier this morning in room 576, bed 1. No fevers and no chills. PHYSICAL EXAMINATION: VITAL SIGNS: Temperature is 98, blood pressure is 136/60, respiratory rate of 20, heart rate of 85. HEENT: Unremarkable. NECK: Supple. LUNGS: Have decreased breath sounds. HEART: Normal S1, S2. ABDOMEN: Soft. LABORATORY DATA: Reveals the patient has E. coli in the urine, sensitive to Cipro and cefepime and ertapenem and cefazolin and blood cultures are reported to be negative. Chemistries are noted. Alkaline phosphatase is elevated. BNP is noted. Deisy Danielle's consultation is appreciated. ASSESSMENT AND PLAN: An 87-year-old male who was seen earlier this morning who has prostate cancer, admitted with Escherichia coli urinary tract infection, low-grade fevers, tachycardia. We switched to p.o. antibiotics and complete therapy. Overall prognosis is poor. Evangelist García MD
--- NOTE | 2017-07-25 00:49 | DS ---
HISTORY OF PRESENT ILLNESS: This is an 87-year-old male who had come into the hospital and was having difficulty in walking. The patient was found to have urinary tract infection secondary to gram-negative rods. The patient has no complaints of any headaches or dizziness. No nausea, no vomiting. PHYSICAL EXAMINATION: VITAL SIGNS: Temperature is 98.7, pulse of 85, blood pressure is 141/60, respirations 20, O2 saturation 96%. GENERAL: The patient is lying in bed, flat, comfortable. HEENT: No oral lesion. Anicteric sclerae. Moist mucosa. NECK: No JVD, adenopathy, or thyromegaly. CARDIOVASCULAR: S1 and S2, regular. No murmurs, rubs, or gallops. LUNGS: Clear to auscultation bilaterally. No wheeze, rales, or rhonchi. ABDOMEN: Bowel sounds are positive, soft, nontender and nondistended. EXTREMITIES: No cyanosis, clubbing, or edema. ASSESSMENT: 1. Urinary tract infection secondary to gram-negative rods. 2. Gait dysfunction. 3. Metastatic-hormone resistant prostate cancer. 4. Back pain. 5. Spinal stenosis. 6. Hepatomegaly. 7. Coronary artery disease. 8. Osteoarthritis. 9. Seizure disorder. 10. Deconditioning. PLAN: The patient is currently on cefepime for antibiotics. The patient is on Percocet for pain. The patient is going to be on Tegretol for seizure disorder. The patient is going to subacute rehab, I did speak to the addiction social worker. The patient is on a heart-healthy diet. The patient was seen by Dr. Luz for the prostate cancer, no further radiation is warranted. Kenny Bae MD
--- NOTE | 2017-07-25 08:02 | CON ---
DATE: 07/24/2017 GENITOURINARY CONSULTATION CHIEF COMPLAINT: Weakness and falls. HISTORY OF PRESENT ILLNESS: This is an 87-year-old male who is known to me. The patient has a history of metastatic prostate cancer. He recently received bone radiation and was transferred to rehabilitation. The patient completed his rehabilitation and was then discharged home. At home, the patient suffered a fall and was feeling weakness and continued pain. He was readmitted to the hospital. He reports his legs are very weak. He is having difficulty supporting his weight and ambulating without assistance. He denies any headaches or dizziness. Denies any nausea or vomiting. The patient has an indwelling Bray catheter for urinary retention. He denies any gross hematuria. consultation was requested regarding the above. PAST MEDICAL HISTORY: Castrate-resistant metastatic prostate cancer, urinary retention, back pain, spinal stenosis, coronary artery disease, gait dysfunction, urinary tract infection, and seizure disorder. MEDICATIONS: Currently include Cipro, Duragesic, Percocet, Senokot, Tegretol. He received a dose of Maxipime. ALLERGIES: NO KNOWN DRUG ALLERGIES. FAMILY HISTORY: Noncontributory. SOCIAL HISTORY: No smoking or EtOH use. REVIEW OF SYSTEMS: The patient is awake and alert, answering questions. He complains of weakness, lethargy, back pain, difficulty ambulating, urinary retention, and some constipation. Other systems are negative. PHYSICAL EXAMINATION: GENERAL: The patient is awake, alert, and answering questions. VITAL SIGNS: He is afebrile. Temperature of 98.7, pulse 85, BP 141/60, respirations are 20. NECK: Supple. There is no adenopathy. CHEST: Revealed normal inspiratory effort. CARDIAC: Positive S1, S2. There is [id number] peripheral edema noted. ABDOMEN: Soft, nontender, nondistended. There is no hepatosplenomegaly. There is no costovertebral angle tenderness. GENITOURINARY: Phallus is normal. Bray catheter in place draining clear-colored urine. Scrotum is normal. Testes bilaterally descended, nontender, no masses, mildly atrophic. Epididymis are normal. EXTREMITIES: There is [id number] edema. No cyanosis. LABORATORY DATA: WBC count 5.5, creatinine 0.9 with a GFR of greater than 60. BNP of 1200, alk phos 146. Urinalysis 5 to 10 rbc's, too numerous to count wbc's, positive nitrites. RADIOLOGIC DATA: Pelvic x-ray showed arthritis in the sacroiliac joints and hip joints, no acute fractures noted. IMPRESSION AND PLAN: This is an 87-year-old male with castrate-resistant metastatic prostate cancer. Urologically, I have discussed with the patient and the patient's son that the plan would be to start the patient on Xtandi or Zytiga and prednisone. The patient was supposed to follow up in my office after leaving rehab; however, he suffered a fall at home and was readmitted. Plan for now will be pain control and continue rehabilitation. I would recommend a consult with Oncology. Dr. Kim has seen him in the past. Possibly she can facilitate getting the patient the medication while he is in the hospital and starting him at that time. Alternatively, we can consider starting chemotherapy which would be the next step if the advanced hormonal therapy does not work; however, I will leave this decision to Dr. Kim. For now, Bray catheter should be remaining in place. I will check when the patient's last leuprolide injection was, as he may be due and that we can give to him while he is at the hospital. Thank you for allowing me to participate in the care of this patient. He is critically ill and in guarded condition. I will follow him with you. Henry Nascimento MD
[2017-07-25 11:17] VITALS: BP 136/62; PULSE 76; TEMP 98.1; O2SAT 93
== END 2017-07-24 23:39 ==
LOC: ED 17:44 → INTOOBSV 21:05 → ERH 21:05 → 5RSO 22:37
PROVIDERS: ADMIT Internal Medicine Nephrology; ATTEND Internal Medicine Nephrology
DX: N39.0 Urinary tract infection, site not specified (principal); B96.20 Unspecified Escherichia coli [E. coli] as the cause of diseases classified elsewhere; C61 Malignant neoplasm of prostate; C79.51 Secondary malignant neoplasm of bone; D86.9 Sarcoidosis, unspecified; G40.909 Epilepsy, unspecified, not intractable, without status epilepticus; G89.3 Neoplasm related pain (acute) (chronic); H40.9 Unspecified glaucoma; I12.9 Hypertensive chronic kidney disease with stage 1 through stage 4 chronic kidney disease, or unspecified chronic kidney disease; I25.10 Atherosclerotic heart disease of native coronary artery without angina pectoris; M19.90 Unspecified osteoarthritis, unspecified site; M48.00 Spinal stenosis, site unspecified; N13.9 Obstructive and reflux uropathy, unspecified; N18.9 Chronic kidney disease, unspecified; N28.1 Cyst of kidney, acquired; N40.0 Benign prostatic hyperplasia without lower urinary tract symptoms; R29.6 Repeated falls; R32 Unspecified urinary incontinence; W18.30XA Fall on same level, unspecified, initial encounter; Y92.009 Unspecified place in unspecified non-institutional (private) residence as the place of occurrence of the external cause; Z66 Do not resuscitate; Z79.818 Long term (current) use of other agents affecting estrogen receptors and estrogen levels; Z85.46 Personal history of malignant neoplasm of prostate; Z87.440 Personal history of urinary (tract) infections; Z87.891 Personal history of nicotine dependence; Z92.3 Personal history of irradiation; Z98.42 Cataract extraction status, left eye; Z98.41 Cataract extraction status, right eye
CPT/HCPCS: 71045; 72170; 80053; 81001; 82550; 82803; 83615; 83880; 84484; 85025; 85610; 87040; 87086; 87181; 93005; 97162; 97530; 99285; G0378; G8978; G8979; J0692; J0696

== ENCOUNTER 2017-09-16 11:16 | Inpatient (IN) | payer MEDICARE ==
[2017-09-16 11:24] VITALS: BMI 24.0
--- NOTE | 2017-09-16 11:36 | ED PDOC ---
Arrival/HPI - General Chief Complaint: Shortness Of Breath Time Seen by Provider: 09/16/17 11:31 Historian: Patient - History of Present Illness Narrative History of Present Illness (Text): 09/16/17 11:30 87 year old male, whose PMH includes prostate CA with metastasize to bones, and seizure, who presents to the emergency department complaining of productive cough since last week. Patient reports his PMD started him on Mucinex, but it had no significant relief. His visiting nurse came and recommended him to come to the emergency department for evaluation. Son states he has been feeling drowsy with worsening cough. Patient denies chest pain, headache, fever, nausea , vomiting, diarrhea, or other complaints. Time/Duration: 1 week Symptom Onset: Gradual Symptom Course: Worsening Activities at Onset: Rest Context: Home Past Medical History - Provider Review Nursing Documentation Reviewed: Yes - Infectious Disease Hx of Infectious Diseases: None - Cardiac Hx Cardiac Disorders: No - Pulmonary Hx Respiratory Disorders: Yes (H/O SMOKING CIGARETTES) Other/Comment: EMPYEMA/SARCOIDOSIS - Neurological Hx Dizziness: Yes (syncope) Hx Seizures: Yes (last seizure 20 yrs ago) - HEENT Hx Cataracts: Yes (with bilateral sx) - Renal Hx Renal Disorder: Yes Other/Comment: chronic holland-Prostate ca. - Endocrine/Metabolic Hx Endocrine Disorders: No - Hematological/Oncological Hx Blood Disorders: Yes (radiation theraphy had 9 rounds already) Hx Cancer: Yes (prostate ca with mets to bones) - Integumentary Hx Dermatological Disorder: Yes Other/Comment: 06-03-17 bilateral le edema +2 more to right .Pitting with dry thin scaly flakes. - Musculoskeletal/Rheumatological Hx Falls: Yes - Gastrointestinal Hx Gastrointestinal Disorders: Yes (constipation) - Genitourinary/Gynecological Hx Urinary Tract Infection: Yes - Psychiatric Hx Psychophysiologic Disorder: Yes Hx Substance Use: No - Anesthesia Hx Anesthesia: No Family/Social History - Physician Review Nursing Documentation Reviewed: Yes Family/Social History: Unknown Family HX Smoking Status: Former Smoker Hx Alcohol Use: Yes (occasional) Hx Substance Use: No Allergies/Home Meds Allergies/Adverse Reactions: Allergies No Known Allergies Allergy (Verified 06/03/17 18:53) Home Medications: Home Meds Medication Instructions Recorded Confirmed Carbamazepine [Carbatrol] 1 tab PO TID 07/21/17 07/21/17 oxyCODONE/Acetaminophen [Percocet 1 tab PO Q12H PRN 07/21/17 07/21/17 5/325 mg Tab] Review of Systems - Review of Systems Constitutional: absent: Fevers Eyes: absent: Vision Changes Respiratory: Cough. absent: SOB Cardiovascular: absent: Chest Pain Gastrointestinal: absent: Abdominal Pain Genitourinary Male: absent: Dysuria Musculoskeletal: absent: Back Pain Skin: absent: Rash Neurological: Other (drowsiness ). absent: Headache Endocrine: absent: Diaphoresis Physical Exam Vital Signs Reviewed: Yes Vital Signs Temp Pulse Resp BP Pulse Ox 09/16/17 12:27 98 H 20 116/56 L 96 09/16/17 11:23 98.3 F 108 H 19 146/61 92 L Temperature: Afebrile Blood Pressure: Normal Pulse: Tachycardic Respiratory Rate: Agonal Appearance: Positive for: Well-Appearing, Non-Toxic, Comfortable Pain Distress: None Mental Status: Positive for: Alert and Oriented X 3 - Systems Exam Head: Present: Atraumatic Pupils: Present: PERRL Extroacular Muscles: Present: EOMI Conjunctiva: Present: Normal Respiratory/Chest: Present: Rhonchi (bilateral rhonchi ). No: Clear to Auscultation, Respiratory Distress, Accessory Muscle Use, Rales Cardiovascular: Present: Regular Rate and Rhythm, Normal S1, S2. No: Murmurs Abdomen: Present: Normal Bowel Sounds. No: Tenderness, Distention, Peritoneal Signs, Rebound, Guarding Genitourinary Male: Present: Other (Holland catheter in place) Lower Extremity: Present: Normal Inspection, NORMAL PULSES, Normal ROM, Neurovascularly Intact, Capillary Refill < 2 s. No: Edema, Cyanosis, Tenderness , Swelling, Erythema, Deformity Neurological: Present: GCS=15, CN II-XII Intact, Speech Normal Skin: Present: Warm, Dry, Normal Color. No: Rashes Psychiatric: Present: Alert, Oriented x 3, Normal Insight, Normal Concentration Medical Decision Making ED Course and Treatment: 09/16/17 Impression: 87 year old male, with rhonchi on bilateral lungs complaining of productive cough since one week. Plan: -- EKG -- Chest X-ray -- Labs -- Reassess and disposition Progress Notes: EKG: Ordered, reviewed, and independently interpreted the EKG. Rate : 100 BPM Rhythm : sinus tachycardia Interpretation : LAD. No ST-segment elevations or depressions, no T-wave inversions, normal intervals. 09/16/17 12:20 Chest X-ray: Creator : Tawanda Christine MD COMPARISON: 07/21/2017 FINDINGS: LUNGS: Patchy alveolar infiltrates are seen in both upper lobes. PLEURA: No significant pleural effusion identified, no pneumothorax apparent. CARDIOVASCULAR: Normal. OSSEOUS STRUCTURES: No significant abnormalities. VISUALIZED UPPER ABDOMEN: Normal. OTHER FINDINGS: None. IMPRESSION: Bilateral upper lobe pneumonia 09/16/17 13:28 Patient was diagnosed with PNA and will be admitted for airborne observation. - Lab Interpretations Lab Results: 09/16/17 11:48 09/16/17 11:48 Lab Results 09/16/17 11:48: Sodium 136, Potassium 3.6, Chloride 99, Carbon Dioxide 25, Anion Gap 16, BUN 18, Creatinine 0.5 L, Est GFR ( Amer) > 60, Est GFR ( Non-Af Amer) > 60, Random Glucose 109, Calcium 8.5, Phosphorus 3.0, Magnesium 1.8, Total Bilirubin 0.4, AST 25, ALT 24, Alkaline Phosphatase 91, Troponin I < 0.01, Total Protein 6.3, Albumin 3.0, Globulin 3.3, Albumin/Globulin Ratio 0.9 L 09/16/17 11:48: WBC 11.6 H D, RBC 3.77, Hgb 11.4 L, Hct 33.8 L, MCV 89.7 D, MCH 30.2, MCHC 33.7, RDW 14.7 H, Plt Count 251, MPV 9.4, Gran % 63.6, Lymph % ( Auto) 27.0, [place] % (Auto) 9.1 H, Eos % (Auto) 0.1 L, Baso % (Auto) 0.2, Gran # 7.37 H, Lymph # (Auto) 3.1, [place] # (Auto) 1.1 H, Eos # (Auto) 0.0, Baso # (Auto ) 0.02 I have reviewed the lab results: Yes - RAD Interpretation Radiology Orders: 09/16/17 11:34 CHEST PORTABLE [RAD] Stat Senior Engineering Manager: Radiologist - EKG Interpretation Interpreted by ED Physician: Yes Type: 12 lead EKG - Medication Orders Current Medication Orders: Cefepime HCl (Maxipime 2gm) 2 gm in 100 mls @ 100 mls/hr IVPB STAT STA PRN Reason: Protocol Stop: 09/16/17 14:14 Vancomycin HCl 1.25 gm/ Sodium (Chloride) 500 mls @ 167 mls/hr IVPB ONCE ONE Stop: 09/16/17 16:29 Discontinued Medications Azithromycin (Zithromax) 500 mg PO STAT STA PRN Reason: Protocol Stop: 09/16/17 13:18 - Scribe Statement The provider has reviewed the documentation as recorded by the Crescencio Amaral Provider Scribe Attestation: All medical record entries made by the Scribe were at my direction and personally dictated by me. I have reviewed the chart and agree that the record accurately reflects my personal performance of the history, physical exam, medical decision making, and the department course for this patient. I have also personally directed, reviewed, and agree with the discharge instructions and disposition. Disposition/Present on Arrival - Present on Arrival History of DVT/PE: No History of Uncontrolled Diabetes: No Urinary Catheter: No History of Decub. Ulcer: No History Surgical Site Infection Following: None - Disposition Referrals: Glynn Shields MD [Primary Care Provider] - Follow up with primary Forms: [place] (Chinese)
[2017-09-16 11:59] LABS: BASO # 0.02 K/mm3 (0.0-2.0); BASO % 0.2 % (0.0-3.0); EOS % 0.1 % (1.5-5.0); GRAN # 7.37 (1.4-6.5); GRAN % 63.6 % (50.0-68.0); HEMOGLOBIN 11.4 g/dL (14.0-18.0); LYMPH # 3.1 (1.2-3.4); MEAN CELL VOLUME 89.7 fl (80.0-105.0); MEAN CORPUSCULAR HEMOGLOBIN 30.2 pg (25.0-35.0); MEAN CORPUSCULAR HGB CONC 33.7 g/dl (31.0-37.0); MEAN PLATELET VOLUME 9.4 fl (7.0-11.0); MONO # 1.1 (0.1-0.6); MONO % 9.1 % (1.0-6.0); RBC 3.77 10^6/uL (3.5-6.1); RED CELL DISTRIBUTION WIDTH 14.7 % (11.5-14.5); WHITE BLOOD COUNT 11.6 10^3/ul (4.5-11.0)
[2017-09-16 12:02] LABS: ALB/GLOB RATIO 0.9 (1.1-1.8); CALCIUM 8.5 mg/dL (8.4-10.5); GFR AFRICAN-AMERICAN > 60; GFR NON-AFRICAN AMERICAN > 60
[2017-09-16 12:20] LABS: ALT/SGPT 24 U/L (7-56); AST/SGOT 25 U/L (17-59); BLOOD UREA NITROGEN 18 mg/dL (7-21)
--- NOTE | 2017-09-16 12:20 | RAD ---
HISTORY: possible pneumonia COMPARISON: 07/21/2017 FINDINGS: LUNGS: Patchy alveolar infiltrates are seen in both upper lobes. PLEURA: No significant pleural effusion identified, no pneumothorax apparent. CARDIOVASCULAR: Normal. OSSEOUS STRUCTURES: No significant abnormalities. VISUALIZED UPPER ABDOMEN: Normal. OTHER FINDINGS: None. IMPRESSION: Bilateral upper lobe pneumonia
[2017-09-16] MEDS ORDERED: Vancomycin 500 mg Inj IVPB ONE (13:15)
[2017-09-16] MEDS ORDERED: Cefepime IV 2 gm in NS 2 GM/100 ML BAG IVPB STA (13:15)
[2017-09-16] MEDS ORDERED: Vancomycin 1.25 GM in Sodium Chloride 0.9% 500 ML IVPB ONE (13:30)
[2017-09-16 14:06] LABS: TROPONIN I < 0.01 ng/mL
--- NOTE | 2017-09-16 18:33 | CARD ---
APPROVED REPORT EKG Measurement Heart [id number] <Conclusion> Normal sinus rhythm Normal ECG
[2017-09-16] MEDS ORDERED: Pneumococcal 23-Valent Vaccine IM ONE (21:29)
[2017-09-16] MEDS ORDERED: Oxycodone/Acetaminophen 5/325 mg Tab PO PRN (21:49)
[2017-09-16] MEDS: Cefepime IV 2 gm in NS 2 GM/100 ML BAG IVPB SCH (21:55)
[2017-09-17] MEDS: Cefepime IV 2 gm in NS 2 GM/100 ML BAG IVPB SCH ×3 (05:21→21:05)
[2017-09-17] MEDS: Vancomycin 1gm in NS 250ml 1 GM/250 ML BAG IVPB SCH ×2 (05:24→18:57)
--- NOTE | 2017-09-17 06:43 | CP.PCM.HP ---
<Matilde Casey - Last Filed: 09/17/17 12:32> History of Present Illness - History of Present Illness History of Present Illness: H&P for Lakisha Dan PGY2 This is an 87yo male with past medical history with metastatic prostate cancer s /p ADT and palliative radiation, seizures, glaucoma, UTI and falls who came to ED for cough and lethargy x 1 week. Patient states he wasn't feeling well for the past week. He was coughing phlegm, but unsure of what color it is. He tried Mucinex that was suggested by his PMD without any relief. Patient denies fever, chills, chest pain, shortness of breath, nausea/vomiting/diarrhea, numbness or tingling. Upon examination, patient is awake and alert but A&O x 1-2. I spoke with his son and this is not his baseline. Patient has been lethargic for the past week and has been in and out of the hospital and rehab facilities since April. Past medical history: Metastatic prostate cancer s/p ADT and palliative radiation, seizures, glaucoma Past surgical history: bilateral cataract surgery Home meds: As per MAR Allergies: NKDA Social history: Denies EtOH, drug or tobacco use. Present on Admission - Present on Admission Any Indicators Present on Admission: No Review of Systems - Review of Systems All systems: reviewed and no additional remarkable complaints except Review of Systems: 12 point ROS reviewed as per HPI and are otherwise negative. Past Patient History - Infectious Disease Hx of Infectious Diseases: None - Past Social History Smoking Status: Never Smoked - CARDIAC Hx Cardiac Disorders: No Hx Peripheral Edema: Yes (b/l foot/ankle edema +1) - PULMONARY Hx Respiratory Disorders: Yes (H/O SMOKING CIGARETTES) Other/Comment: EMPYEMA/SARCOIDOSIS - NEUROLOGICAL Hx Dizziness: Yes (syncope) Hx Seizures: Yes (last seizure 20 yrs ago) - HEENT Hx Cataracts: Yes (with bilateral sx) Hx Glaucoma: Yes - RENAL Hx Chronic Kidney Disease: Yes Other/Comment: chronic holland-Prostate ca. - ENDOCRINE/METABOLIC Hx Endocrine Disorders: No - HEMATOLOGICAL/ONCOLOGICAL Hx Blood Disorders: Yes (radiation therapy had 9 rounds already) Hx Cancer: Yes (prostate ca with mets to bones) Other/Comment: lupro injections once a month - INTEGUMENTARY Hx Dermatological Problems: Yes Other/Comment: b/l ankle foot edema +1 multiple fading bruses to both lower legs - MUSCULOSKELETAL/RHEUMATOLOGICAL Hx Musculoskeletal Disorders: Yes Hx Arthritis: Yes Hx Back Pain: Yes (sciatica) Hx Falls: Yes (recent frequent) Hx Unsteady Gait: Yes (was using walker now bedridden) - GASTROINTESTINAL Hx Gastrointestinal Disorders: Yes (constipation) - GENITOURINARY/GYNECOLOGICAL Hx Urinary Tract Infection: Yes - PSYCHIATRIC Hx Psychophysiologic Disorder: Yes Hx Substance Use: No - SURGICAL HISTORY Hx Surgeries: Yes (lung sx,right foot sx-clubbed foot,bilateral cataract sx.) - ANESTHESIA Hx Anesthesia: No Meds Allergies/Adverse Reactions: Allergies Allergy/AdvReac Type Severity Reaction Status Date / Time No Known Allergies Allergy Verified 06/03/17 18:53 Physical Exam - Constitutional Appears: No Acute Distress - Head Exam Head Exam: ATRAUMATIC, NORMAL INSPECTION, NORMOCEPHALIC - Eye Exam Eye Exam: Normal appearance, PERRL Pupil Exam: NORMAL ACCOMODATION, PERRL - ENT Exam ENT Exam: Mucous Membranes Moist - Respiratory Exam Respiratory Exam: Decreased Breath Sounds (on apices ), NORMAL BREATHING PATTERN. absent: Rales, Rhonchi, Wheezes - Cardiovascular Exam Cardiovascular Exam: REGULAR RHYTHM, +S1, +S2. absent: Gallop, Rubs, Systolic Murmur - GI/Abdominal Exam GI & Abdominal Exam: Normal Bowel Sounds, Soft. absent: Mass, Rebound, Rigid, Tenderness - Extremities Exam Extremities exam: Positive for: normal inspection. Negative for: calf tenderness, pedal edema - Neurological Exam Neurological exam: Alert, CN II-XII Intact - Psychiatric Exam Psychiatric exam: Normal Affect, Normal Mood - Skin Skin Exam: Dry, Warm Results - Vital Signs Recent Vital Signs: Last Vital Signs Temp 97.7 F 09/16/17 23:19 Pulse 94 H 09/16/17 23:19 Resp 16 09/16/17 23:19 BP 121/52 L 09/16/17 23:19 Pulse Ox 94 L 09/16/17 23:19 - Labs Result Diagrams: 09/16/17 11:48 09/16/17 11:48 Assessment & Plan - Assessment and Plan (Free Text) Assessment: This is an 87yo male with past medical history with metastatic prostate cancer s /p ADT and palliative radiation, seizures, glaucoma who was admitted for 1. Hospital Acquired Pneumonia 2. Delirium 3. Seizures 4. 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 Patient is on airborne precaution. ID is on consult. Septic work up is in progress. We will continue home seizure medication, Carbamazapime as well as his pain medication for his cancer. As for his delirium, this can be secondary to the pneumonia. Recommend continuous patient education and re-orientation. We will get a swallow eval since patient has been spitting up a lot of his food as per nursing staff. Physical therapy evaluation pending. Patient will be on GI and DVT prophylaxis. He is DNR/DNI as per POLST form which was done at last admission. Case see, discussed and reviewed with Dr. Bae. Lakisha Casey PGY2 - Date & Time Date: 09/17/17 Time: 12:49 <Kenny Bea S - Last Filed: 09/17/17 16:17> Results - Vital Signs Recent Vital Signs: Last Vital Signs Temp 97.8 F 09/17/17 15:14 Pulse 91 H 09/17/17 15:14 Resp 18 09/17/17 15:14 BP 133/56 L 09/17/17 15:14 Pulse Ox 98 09/17/17 15:14 - Labs Result Diagrams: 09/16/17 11:48 09/16/17 11:48 Labs: Laboratory Results - last 24 hr 09/17/17 07:00 Procalcitonin 0.21 Assessment & Plan - Assessment and Plan (Free Text) Plan: Pt seen and examined. I have reviewed the note of the medical advisor and agree with it. I have discussed the assessment and plan with the resident. I have reviewed the patient's labs and medications. Pt's son was updated on the diagnosis and plan. ID consulted. He is confused. He has a pneumonia on CXR. His medical records were reviewed by me from the last admission.
--- NOTE | 2017-09-18 01:51 | CON ---
DATE: 09/17/2017 LOCATION: The patient is seen in room 576, bed 1 earlier today. The patient's son was at the bed in the room next to the patient's bed. CHIEF COMPLAINT: Shortness of breath and cough times several days. HISTORY OF PRESENT ILLNESS: This is an 87-year-old male with history of prostate cancer with metastases to the bone, history of E. coli urinary tract infection, history of Klebsiella urinary tract infection, history of seizures and glaucoma, who was admitted with diagnosis of pneumonia and tuberculosis screening. The patient states he is not having any fevers or chills. He does have shortness of breath and cough and cough has a few days' duration, nonproductive. He has not had night sweats. No recent weight loss. PAST MEDICAL HISTORY: Significant for prostate cancer with metastases to the bone, treated with Lupron hormonal therapy, had radiation to the pelvic and also with E. coli urinary tract infection, Klebsiella urinary tract infection, seizures and glaucoma. REVIEW OF SYSTEMS: The patient's review of systems also reveals 12-point review of systems is performed. PAST SURGICAL HISTORY: Significant for right foot surgery, lung surgery, bilateral cataract surgery. ALLERGIES: THE PATIENT HAS NO KNOWN ALLERGIES. SOCIAL HISTORY: He is born in [facility], never has been outside of [place], never had any tuberculosis exposure, has never been in nursing home and is not working in the healthcare history. He is an general ledger accountant. MEDICATIONS AT HOME: Include oxycodone, , Duragesic patch and Tegretol and Carbatrol. PHYSICAL EXAMINATIN: GENERAL: He is in bed, appearing chronically ill, debilitated, wasting. VITAL SIGNS: Temperature of 98, blood pressure is 120/50, respiratory rate of 19, heart rate of 103, BMI of only 24. HEENT: Examination of HEENT is temporal wasting. NECK: Supple. LUNGS: Have decreased breath sounds. HEART: Normal S1, S2. ABDOMEN: Soft, nontender. No organomegaly. No rebound. No guarding. No masses. LABORATORY DATA: Laboratory examination reveals a white count 11,600, hemoglobin of 11, platelets of 251, a 63% granulocytosis. Chemistries reveals a BUN of 18, creatinine of 0.5, procalcitonin 0.21. Microbiology reveals the blood cultures are negative. The patient had a chest x-ray, which reveals patchy alveolar infiltrates, upper lobes. ASSESSMENT AND PLAN: An 87-year-old male with prostate cancer with metastases to the bone, Escherichia coli urinary tract infection, Klebsiella urinary tract infection, seizures, glaucoma, admitted with shortness of breath, found to have tachycardia and positive infiltrate. #1 is bilateral healthcare-associated upper lobe pneumonia with a normal procalcitonin, less likely it is bacterial. I strongly doubt tuberculosis in this patient. We will discontinue the isolation. The patient has never been out of [place] and is not having any fevers and chills. No risk factor for tuberculosis. He did not get BCG treatment for the prostate cancer, was given hormonal Lupron. We will treat the patient with doxycycline and cefepime. Discontinue the IV vancomycin since the blood cultures are negative. We will order a CAT scan of the chest. We will also order a QuantiFERON and we will follow with you. Overall prognosis is quite poor for this patient who has what appears chronically ill, end stage, consider hospice setting for this patient. Evangelist García MD
[2017-09-18] MEDS: Cefepime IV 2 gm in NS 2 GM/100 ML BAG IVPB SCH ×3 (04:59→21:38)
--- NOTE | 2017-09-18 06:45 | CP.PCM.PN ---
<Matilde Casey - Last Filed: 09/18/17 09:55> Subjective - Date & Time of Evaluation Date of Evaluation: 09/18/17 Time of Evaluation: 08:00 - Subjective Subjective: Progress Note for Lakisha Dan PGY2 Patient seen and examined at bedside. There were no acute overnight events as per nursing staff. Patient was lethargic on examination, but arousable. He denies chest pain, shortness of breath, nausea/vomiting/diarrhea, fever or chills, numbness/tingling, dysuria or hematuria. Objective - Vital Signs/Intake and Output Vital Signs (last 24 hours): Temp Pulse Resp BP Pulse Ox 97.8 F 91 H 18 133/56 L 98 09/17/17 15:14 09/17/17 15:14 09/17/17 15:14 09/17/17 15:14 09/17/17 15:14 Intake and Output: 09/17/17 09/18/17 18:59 06:59 Intake Total 120 Output Total 400 Balance -280 - Medications Medications: Current Medications Carbamazepine (Tegretol) 200 mg PO TID TARA PRN Reason: Protocol Last Admin: 09/17/17 17:53 Dose: 200 mg Doxycycline Hyclate (Doryx) 100 mg PO Q12 TARA PRN Reason: Protocol Last Admin: 09/17/17 21:04 Dose: 100 mg Famotidine (Pepcid) 40 mg PO HS [facility] Last Admin: 09/17/17 21:05 Dose: 40 mg Fentanyl (Duragesic) 1 patch TD Q72H [facility] Last Admin: 09/16/17 22:10 Dose: 1 patch Fentanyl (Duragesic) 1 patch TD Q72H [facility] Last Admin: 09/17/17 18:57 Dose: 1 patch Heparin Sodium (Porcine) (Heparin) 5,000 units SC Q12 TARA PRN Reason: Protocol Last Admin: 09/17/17 21:04 Dose: 5,000 units Cefepime HCl (Maxipime 2gm) 2 gm in 100 mls @ 100 mls/hr IVPB Q8 TARA PRN Reason: Protocol Stop: 09/21/17 22:01 Last Admin: 09/18/17 04:59 Dose: 100 mls/hr Oxycodone/Acetaminophen (Percocet 5/325 Mg Tab) 1 tab PO Q4H PRN PRN Reason: Pain, moderate (4-7) Stop: 09/19/17 21:50 - Constitutional Appears: No Acute Distress - Head Exam Head Exam: ATRAUMATIC, NORMAL INSPECTION, NORMOCEPHALIC - Eye Exam Eye Exam: Normal appearance Pupil Exam: NORMAL ACCOMODATION - ENT Exam ENT Exam: Mucous Membranes Moist - Respiratory Exam Respiratory Exam: Clear to Ausculation Bilateral, NORMAL BREATHING PATTERN. absent: Rales, Rhonchi, Wheezes - Cardiovascular Exam Cardiovascular Exam: REGULAR RHYTHM, +S1, +S2. absent: Gallop, Rubs, Murmur - GI/Abdominal Exam GI & Abdominal Exam: Soft, Normal Bowel Sounds. absent: Tenderness, Mass, Rebound - Extremities Exam Extremities Exam: Normal Inspection. absent: Calf Tenderness, Pedal Edema - Neurological Exam Neurological Exam: Awake, CN II-XII Intact. absent: Oriented x3 (A&O x 1-2) - Psychiatric Exam Psychiatric exam: Normal Affect, Normal Mood - Skin Skin Exam: Dry, Warm Assessment and Plan - Assessment and Plan (Free Text) Assessment: This is an 87yo male with past medical history with metastatic prostate cancer s /p ADT and palliative radiation, seizures, glaucoma who was admitted for 1. Hospital Acquired Pneumonia 2. Delirium 3. Seizures 4. 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 Chest CT done, final read pending. Patient is on Cefepime and Doxycycline. I spoke with ID who reports that the pneumonia is most likely viral secondary to aspiration while on chronic pain medication for cancer. Speech and swallow evaluated patient who did not see any dysphagia. Try to avoid feeding if lethargic. Continue Carbamazapime for history of seizures. Continue pain medication. Continue education and re-orientation for delirium. He is on GI and DVT prophylaxis. Patient is DNR/DNI as per POLST. Patient lives alone and was supposedly discussing hospice in the past. Will consult palliative care. Case see, discussed and reviewed with Dr. Bae. Lakisha Casey PGY2 <Kenny Bae - Last Filed: 09/18/17 21:30> Objective - Vital Signs/Intake and Output Vital Signs (last 24 hours): Temp Pulse Resp BP Pulse Ox 98.4 F 90 20 127/64 97 09/18/17 14:59 09/18/17 14:59 09/18/17 14:59 09/18/17 14:59 09/18/17 14:59 Intake and Output: 09/18/17 09/19/17 18:59 06:59 Intake Total 500 Output Total 350 Balance 150 - Medications Medications: Current Medications Carbamazepine (Tegretol) 200 mg PO TID TARA PRN Reason: Protocol Last Admin: 09/18/17 17:19 Dose: 200 mg Doxycycline Hyclate (Doryx) 100 mg PO Q12 TARA PRN Reason: Protocol Last Admin: 09/18/17 09:07 Dose: 100 mg Famotidine (Pepcid) 40 mg PO HS [facility] Last Admin: 09/17/17 21:05 Dose: 40 mg Fentanyl (Duragesic) 1 patch TD Q72H [facility] Last Admin: 09/16/17 22:10 Dose: 1 patch Fentanyl (Duragesic) 1 patch TD Q72H [facility] Last Admin: 09/17/17 18:57 Dose: 1 patch Heparin Sodium (Porcine) (Heparin) 5,000 units SC Q12 TARA PRN Reason: Protocol Last Admin: 09/18/17 09:08 Dose: 5,000 units Cefepime HCl (Maxipime 2gm) 2 gm in 100 mls @ 100 mls/hr IVPB Q8 TARA PRN Reason: Protocol Stop: 09/21/17 22:01 Last Admin: 09/18/17 13:57 Dose: 100 mls/hr Oxycodone/Acetaminophen (Percocet 5/325 Mg Tab) 1 tab PO Q4H PRN PRN Reason: Pain, moderate (4-7) Stop: 09/19/17 21:50 Assessment and Plan - Assessment and Plan (Free Text) Plan: Pt seen and examined. I have reviewed the note of the medical imaging tech and agree with it. I have discussed the assessment and plan with the resident. I have reviewed the patient's labs and medications. Pt is more alert today. He is able to communicate better. Will continue with diet. He is DNR. No pain. CT chest reviewed.
--- NOTE | 2017-09-18 09:01 | CT ---
PROCEDURE: CT Chest without contrast HISTORY: b/l upper infiltrate COMPARISON: None. TECHNIQUE: Contiguous axial images were obtained through the chest without intravenous contrast enhancement. Sagittal and coronal reconstructions were performed. Radiation dose (DLP): 491 mGy-cm. This CT exam was performed using one or more of the following dose reduction techniques: Automated exposure control, adjustment of the mA and/or kV according to patient size, and/or use of iterative reconstruction technique. FINDINGS: LUNGS: Multi focal infiltrates are seen in the upper and lower lobes bilaterally consistent with pneumonia MEDIASTINUM: Unremarkable thoracic aorta. No aneurysm. Normal sized heart. Main pulmonary artery unremarkable. No vascular congestion. No lymphadenopathy. PLEURA: No pleural fluid. No pneumothorax. BONES: Multiple sclerotic lesions are seen in the spine in the sternum consistent with metastatic disease UPPER ABDOMEN: Grossly unremarkable. OTHER FINDINGS: None. IMPRESSION: Multi focal infiltrates are seen in the upper and lower lobes bilaterally consistent with pneumonia
--- NOTE | 2017-09-18 14:42 | PN ---
DATE: 09/18/2017 SUBJECTIVE: The patient was seen earlier this morning. No fevers, no chills. Chronically ill. PHYSICAL EXAMINATION: VITAL SIGNS: Temperature is 97, blood pressure is 130/60, respiratory rate of 18. HEENT: Unremarkable. NECK: Supple. LUNGS: Have decreased breath sounds. HEART: Normal S1, S2. ABDOMEN: Soft, nontender. LABORATORY DATA: Reveals a white count of 11,000, hemoglobin of 11, platelets of 251. Chemistry reveals BUN of 18, creatinine of 0.5. Serology is noted. Microbiology is reviewed. Blood cultures are negative. The patient had a CAT scan of the chest, which revealed multifocal infiltrates in upper and lower lobes consistent with pneumonia. Of note is that the patient's urine for Legionella antigen is negative. The patient's procalcitonin is 0.21. Blood cultures are negative. The patient's creatinine is normal. Currently on cefepime and doxycycline. ASSESSMENT AND PLAN: This is an 87-year-old male with history of prostate cancer with metastasis to the bone, history of Escherichia coli. urinary tract infection, history of Klebsiella urinary tract infection, seizures, glaucoma, admitted now with: 1. Bilaterally healthcare-associated pneumonia with a normal procalcitonin, negative blood cultures, currently on cefepime and doxycycline. We maybe able to discontinue the cefepime in the next 24 hours and complete the short course of doxycycline and we will also order a urinalysis. Overall prognosis is quite poor. Evangelist García MD
[2017-09-18 21:08] LABS: URINE BILIRUBIN NEGATIVE (NEGATIVE); URINE BLOOD TRACE-INTACT (NEGATIVE); URINE GLUCOSE (UA) NEGATIVE (NEGATIVE); URINE LEUKOCYTE ESTERASE TRACE Leu/uL (NEGATIVE); URINE PROTEIN 30 mg/dL (<30 mg/dL); URINE UROBILINOGEN 0.2 E.U./dL (<1 E.U./dL)
[2017-09-18 21:10] LABS: URINE APPEARANCE CLEAR (CLEAR); URINE COLOR LIGHT YELLOW (YELLOW)
[2017-09-18 21:18] LABS: URINE BACTERIA FEW (NEG); URINE EPITHELIAL CELLS 0 - 2 /hpf (0-5); URINE RBC 0 - 2 /hpf (0-2)
[2017-09-19] MEDS: Cefepime IV 2 gm in NS 2 GM/100 ML BAG IVPB SCH ×3 (05:27→21:47)
--- NOTE | 2017-09-19 12:47 | CP.PCM.PN ---
<Matilde Casey - Last Filed: 09/19/17 12:44> Subjective - Date & Time of Evaluation Date of Evaluation: 09/19/17 Time of Evaluation: 07:00 - Subjective Subjective: Progress Note for Lakisha Dan PGY2 Patient seen and examined at bedside. As per nursing staff, patient had some confusion overnight and did not get much sleep. Patient is resting in bed upon examination. He is A&O to person and place. He denies chest pain, shortness of breath, nausea/vomiting/diarrhea, fever or chills, numbness/tingling, dysuria or hematuria. Objective - Vital Signs/Intake and Output Vital Signs (last 24 hours): Temp Pulse Resp BP Pulse Ox 98.2 F 96 H 20 144/68 97 09/19/17 08:37 09/19/17 08:37 09/19/17 08:37 09/19/17 08:37 09/19/17 08:37 Intake and Output: 09/19/17 09/19/17 06:59 18:59 Intake Total 980 Output Total 1025 Balance -45 - Medications Medications: Current Medications Carbamazepine (Tegretol) 200 mg PO TID TARA PRN Reason: Protocol Last Admin: 09/19/17 11:12 Dose: 200 mg Doxycycline Hyclate (Doryx) 100 mg PO Q12 TARA PRN Reason: Protocol Last Admin: 09/19/17 11:11 Dose: 100 mg Famotidine (Pepcid) 40 mg PO HS [facility] Last Admin: 09/18/17 21:39 Dose: 40 mg Fentanyl (Duragesic) 1 patch TD Q72H [facility] Last Admin: 09/16/17 22:10 Dose: 1 patch Fentanyl (Duragesic) 1 patch TD Q72H [facility] Last Admin: 09/17/17 18:57 Dose: 1 patch Heparin Sodium (Porcine) (Heparin) 5,000 units SC Q12 TARA PRN Reason: Protocol Last Admin: 09/19/17 11:11 Dose: 5,000 units Cefepime HCl (Maxipime 2gm) 2 gm in 100 mls @ 100 mls/hr IVPB Q8 TARA PRN Reason: Protocol Stop: 09/21/17 22:01 Last Admin: 09/19/17 05:27 Dose: 100 mls/hr Oxycodone/Acetaminophen (Percocet 5/325 Mg Tab) 1 tab PO Q4H PRN PRN Reason: Pain, moderate (4-7) Stop: 09/19/17 21:50 - Constitutional Appears: No Acute Distress, Chronically Ill - Head Exam Head Exam: ATRAUMATIC, NORMAL INSPECTION, NORMOCEPHALIC - Eye Exam Eye Exam: Normal appearance, PERRL Pupil Exam: NORMAL ACCOMODATION, PERRL - ENT Exam ENT Exam: Mucous Membranes Moist - Neck Exam Neck Exam: Full ROM - Respiratory Exam Respiratory Exam: Clear to Ausculation Bilateral, NORMAL BREATHING PATTERN. absent: Rales, Rhonchi, Wheezes - Cardiovascular Exam Cardiovascular Exam: REGULAR RHYTHM, +S1, +S2. absent: Gallop, Rubs, Murmur - GI/Abdominal Exam GI & Abdominal Exam: Soft, Normal Bowel Sounds. absent: Rigid, Tenderness, Mass , Rebound - Neurological Exam Neurological Exam: Awake, CN II-XII Intact. absent: Oriented x3 - Skin Skin Exam: Dry, Warm Assessment and Plan - Assessment and Plan (Free Text) Assessment: This is an 87yo male with past medical history with metastatic prostate cancer s /p ADT and palliative radiation, seizures, glaucoma who was admitted for 1. Hospital Acquired Pneumonia 2. Delirium 3. Seizures 4. 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 Indwelling holland catheter Plan: Patient is s/p treatment with Cefepime. He will continue PO Doxycycline. ID recommendations were appreciated. We will continue education and re-orientation for his delirium. We will continue pain control and carbamazapime. Patient is DNR/DNI and palliative care is on consult. He is on GI and DVT prophylaxis.nPlan is for patient to be discharged home tomorrow with his 24hr health aid. A Prescription for Doxycycline was [facility]. I spoke with his son Tj today who stated that he agrees with plan of care. Case see, discussed and reviewed with Dr. Bae. Lakisha Casey PGY2 <Kenny Bae S - Last Filed: 09/19/17 15:53> Objective - Vital Signs/Intake and Output Vital Signs (last 24 hours): Temp Pulse Resp BP Pulse Ox 98 F 89 18 142/50 L 94 L 09/19/17 15:23 09/19/17 15:23 09/19/17 15:23 09/19/17 15:23 09/19/17 15:23 Intake and Output: 09/19/17 09/19/17 06:59 18:59 Intake Total 980 Output Total 1025 Balance -45 - Medications Medications: Current Medications Carbamazepine (Tegretol) 200 mg PO TID TARA PRN Reason: Protocol Last Admin: 09/19/17 14:25 Dose: 200 mg Doxycycline Hyclate (Doryx) 100 mg PO Q12 TARA PRN Reason: Protocol Last Admin: 09/19/17 11:11 Dose: 100 mg Famotidine (Pepcid) 40 mg PO HS [facility] Last Admin: 09/18/17 21:39 Dose: 40 mg Fentanyl (Duragesic) 1 patch TD Q72H [facility] Last Admin: 09/16/17 22:10 Dose: 1 patch Fentanyl (Duragesic) 1 patch TD Q72H [facility] Last Admin: 09/17/17 18:57 Dose: 1 patch Heparin Sodium (Porcine) (Heparin) 5,000 units SC Q12 TARA PRN Reason: Protocol Last Admin: 09/19/17 11:11 Dose: 5,000 units Cefepime HCl (Maxipime 2gm) 2 gm in 100 mls @ 100 mls/hr IVPB Q8 TARA PRN Reason: Protocol Stop: 09/21/17 22:01 Last Admin: 09/19/17 14:24 Dose: 100 mls/hr Oxycodone/Acetaminophen (Percocet 5/325 Mg Tab) 1 tab PO Q4H PRN PRN Reason: Pain, moderate (4-7) Stop: 09/19/17 21:50 Assessment and Plan - Assessment and Plan (Free Text) Plan: Pt seen and examined. I have reviewed the note of the medical parasitologist and agree with it. I have discussed the assessment and plan with the resident. I have reviewed the patient's labs and medications. Pt is going home today. He has 24 h care at home.
[2017-09-19 15:26] VITALS: RESP 18
--- NOTE | 2017-09-19 15:43 | CP.PCM.CON ---
History of Present Illness - History of Present Illness History of Present Illness: Palliative consult requested by Dr New Bae Reason: Goals of care 87 year old with history of metastatic prostate cancer, seizures, glaucoma and UTI who presented to ED with weakness, lethargy and productive cough of one week duration. The patient denied fever, chills, nausea, vomiting, chest pain, abdominal pain. Chest x ray showed bilateral upper lobe pneumonia which was confirmed by CT. Labs; WBC 11.6, Hgb 11.4, Plt 251, Chem/LFT's normal. Vital Signs; T 98.0. P 89, BP 142/80, Resp 18. PMHx: dementia, glaucoma, UTI, falls, metastatic prostate cancer s/p radiation therapy, BPH, indwelling holland, seizures. Social History: Former smoker, no alcohol or drug use. 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 Family History: Non contributory Advance care Planing: POLST:DNR/DNI. His son Tj Ríos is his POA Review of Systems: per HPI, 12 point review others negative Past Patient History - Infectious Disease Hx of Infectious Diseases: None - Past Social History Smoking Status: Never Smoked - CARDIAC Hx Cardiac Disorders: No - PULMONARY Hx Respiratory Disorders: Yes (H/O SMOKING CIGARETTES) Other/Comment: EMPYEMA/SARCOIDOSIS - NEUROLOGICAL Hx Dizziness: Yes (syncope) Hx Seizures: Yes (last seizure 20 yrs ago) - HEENT Hx Cataracts: Yes (with bilateral sx) Hx Glaucoma: Yes - RENAL Hx Chronic Kidney Disease: Yes Other/Comment: chronic holland-Prostate ca. - ENDOCRINE/METABOLIC Hx Endocrine Disorders: No - HEMATOLOGICAL/ONCOLOGICAL Hx Blood Disorders: Yes (radiation therapy had 9 rounds already) Hx Cancer: Yes (prostate ca with mets to bones) Other/Comment: lupro injections once a month - INTEGUMENTARY Hx Dermatological Problems: Yes Other/Comment: b/l ankle foot edema +1 multiple fading bruses to both lower legs - MUSCULOSKELETAL/RHEUMATOLOGICAL Hx Arthritis: Yes - GASTROINTESTINAL Hx Gastrointestinal Disorders: Yes (constipation) - GENITOURINARY/GYNECOLOGICAL Hx Urinary Tract Infection: Yes - PSYCHIATRIC Hx Psychophysiologic Disorder: Yes Hx Substance Use: No - SURGICAL HISTORY Hx Surgeries: Yes (lung sx,right foot sx-clubbed foot,bilateral cataract sx.) - ANESTHESIA Hx Anesthesia: No Meds Home Medications: Home Medication List Medication Instructions Recorded Confirmed Type Doxycycline Hyclate [Doryx] 100 mg PO Q12 #6 cap 09/19/17 Rx Allergies/Adverse Reactions: Allergies Allergy/AdvReac Type Severity Reaction Status Date / Time No Known Allergies Allergy Verified 06/03/17 18:53 - Medications Medications: Current Medications Carbamazepine (Tegretol) 200 mg PO TID TARA PRN Reason: Protocol Last Admin: 09/19/17 14:25 Dose: 200 mg Doxycycline Hyclate (Doryx) 100 mg PO Q12 TARA PRN Reason: Protocol Last Admin: 09/19/17 11:11 Dose: 100 mg Famotidine (Pepcid) 40 mg PO HS [facility] Last Admin: 09/18/17 21:39 Dose: 40 mg Fentanyl (Duragesic) 1 patch TD Q72H [facility] Last Admin: 09/16/17 22:10 Dose: 1 patch Fentanyl (Duragesic) 1 patch TD Q72H [facility] Last Admin: 09/17/17 18:57 Dose: 1 patch Heparin Sodium (Porcine) (Heparin) 5,000 units SC Q12 TARA PRN Reason: Protocol Last Admin: 09/19/17 11:11 Dose: 5,000 units Cefepime HCl (Maxipime 2gm) 2 gm in 100 mls @ 100 mls/hr IVPB Q8 TARA PRN Reason: Protocol Stop: 09/21/17 22:01 Last Admin: 09/19/17 14:24 Dose: 100 mls/hr Oxycodone/Acetaminophen (Percocet 5/325 Mg Tab) 1 tab PO Q4H PRN PRN Reason: Pain, moderate (4-7) Stop: 09/19/17 21:50 Physical Exam - Constitutional Appears: Chronically Ill - Head Exam Head Exam: NORMAL INSPECTION - Eye Exam Eye Exam: Normal appearance, PERRL - ENT Exam ENT Exam: Mucous Membranes Moist, Normal Oropharynx - Neck Exam Neck exam: Positive for: Normal Inspection - Respiratory Exam Respiratory Exam: Decreased Breath Sounds, Rhonchi, NORMAL BREATHING PATTERN - Cardiovascular Exam Cardiovascular Exam: REGULAR RHYTHM, +S1, +S2 - GI/Abdominal Exam GI & Abdominal Exam: Normal Bowel Sounds, Soft Additional comments: no tenderness - Exam Additional comments: indwelling holland - Extremities Exam Extremities exam: Positive for: pedal edema, pedal pulses present Additional comments: right club foot - Neurological Exam Neurological exam: Alert Additional comments: oriented to self - Skin Skin Exam: Dry, Pallor - Additional Findings Additional findings: palliative performance scale rating 50 % Results - Vital Signs Recent Vital Signs: Last Vital Signs Temp 98 F 09/19/17 15:23 Pulse 89 09/19/17 15:23 Resp 18 09/19/17 15:23 BP 142/50 L 09/19/17 15:23 Pulse Ox 94 L 09/19/17 15:23 - Labs Result Diagrams: 09/16/17 11:48 09/16/17 11:48 Labs: Laboratory Results - last 24 hr 09/18/17 18:45 Urine Color Light yellow Urine Appearance Clear Urine pH 6.0 Ur Specific [place] 1.015 Urine Protein 30 H Urine Glucose (UA) Negative Urine Ketones Negative Urine Blood Trace-intact H Urine Nitrate Negative Urine Bilirubin Negative Urine Urobilinogen 0.2 Ur Leukocyte Esterase Trace H Urine RBC 0 - 2 Urine WBC 1 - 3 Ur Epithelial Cells 0 - 2 Urine Bacteria Few Assessment & Plan - Assessment and Plan (Free Text) Assessment: 87 year old male history of prostate cancer admitted with pneumonia, delirium, seizures and pain secondary to metastatic prostate cancer to bone. The paitns son Tj and I spoke via phone. Tj is aware of his fathers medical condition, reason for hospitalization and prognosis. Tj and I have discussed hospice services in the past. Tj understands that his father is meets criteria and is eligible for hospice care. Son states he has been thinking about this transition but hasn't been ready to proceed with next step. I offered to initiate process while here at the hospital, but Tj not ready at this time. Physical support given. Tj aware that his father to return home tomorrow. Tj has [address] and anticipating discharge. Time spent speaking with son regarding goals of care and hospice services 20 minutes Plan: Pneumonia:Cepfepime therapy completed. Continue on PO Doxycycline Pain: Continue Fentanyl 25 mcg transdermal patch. Percocet as needed for breakthrough pain Delirium: Close observation,fall prevention, re- orientation . Seizure : Continue Tegretol. Goals of care
--- NOTE | 2017-09-20 02:55 | PN ---
DATE: 09/19/2017 SUBJECTIVE: The patient is in bed, in no acute distress. Nontoxic. PHYSICAL EXAMINATION VITAL SIGNS: Temperature is 97, blood pressure is 140/60, respiratory rate of 18. HEENT: Unremarkable. NECK: Supple. LUNGS: Have decreased breath sounds. HEART: Normal S1 and S2. ABDOMEN: Soft, nontender. LABORATORY DATA: Reveals a white count of 11,600, hemoglobin of 11, platelets of 251. Chemistries reveals a BUN of 18, creatinine of 0.5. Urinalysis is noted, and serology is noted. Urine for Legionella antigen is negative. The patient's procalcitonin is 0.21. Microbiology, no growth. ASSESSMENT AND PLAN: This is an 87-year-old male, who was seen earlier today in 576, bed 1, chronically ill, debilitated with history of prostate cancer with metastasis to the bone, history of Escherichia coli urinary tract infection, history of Klebsiella urinary tract infections, seizures, with bilateral healthcare-associated pneumonia, normal procalcitonin. Blood cultures no growth. Currently on cefepime and doxycycline. The patient had a CAT scan of the chest yesterday, which showed multifocal infiltrates and Dr. Bae's note is reviewed, and Deisy Danielle's note is also reviewed. He is okay for a possible hospice setting. From Infectious Disease point of view, we will discontinue the cefepime. Recommend 4 to 7 days of antibiotics. The patient has already received 4 days of cefepime. We will discontinue cefepime and continue another 3 days of doxycycline p.o. Evangelist García MD
--- NOTE | 2017-09-20 06:07 | CP.PCM.DIS ---
<Matilde Casey - Last Filed: 09/20/17 06:36> Provider - Provider Date of Admission: 09/16/17 13:29 Attending physician: Kenny Bae MD Primary care physician: Glynn Shields MD Consults: ID: Dr. García Palliative: Aurelia Paramontlilia Time Spent in preparation of Discharge (in minutes): 35 Hospital Course - Lab Results Lab Results: Most Recent Lab Values WBC 11.6 10^3/ul (4.5-11.0) H D 09/16/17 11:48 RBC 3.77 10^6/uL (3.5-6.1) 09/16/17 11:48 Hgb 11.4 g/dL (14.0-18.0) L 09/16/17 11:48 Hct 33.8 % (42.0-52.0) L 09/16/17 11:48 MCV 89.7 fl (80.0-105.0) D 09/16/17 11:48 MCH 30.2 pg (25.0-35.0) 09/16/17 11:48 MCHC 33.7 g/dl (31.0-37.0) 09/16/17 11:48 RDW 14.7 % (11.5-14.5) H 09/16/17 11:48 Plt Count 251 10^3/uL (120.0-450.0) 09/16/17 11:48 MPV 9.4 fl (7.0-11.0) 09/16/17 11:48 Gran % 63.6 % (50.0-68.0) 09/16/17 11:48 Lymph % (Auto) 27.0 % (22.0-35.0) 09/16/17 11:48 [place] % (Auto) 9.1 % (1.0-6.0) H 09/16/17 11:48 Eos % (Auto) 0.1 % (1.5-5.0) L 09/16/17 11:48 Baso % (Auto) 0.2 % (0.0-3.0) 09/16/17 11:48 Gran # 7.37 (1.4-6.5) H 09/16/17 11:48 Lymph # (Auto) 3.1 (1.2-3.4) 09/16/17 11:48 [place] # (Auto) 1.1 (0.1-0.6) H 09/16/17 11:48 Eos # (Auto) 0.0 (0.0-0.7) 09/16/17 11:48 Baso # (Auto) 0.02 K/mm3 (0.0-2.0) 09/16/17 11:48 Sodium 136 mmol/L (132-148) 09/16/17 11:48 Potassium 3.6 mmol/L (3.6-5.0) 09/16/17 11:48 Chloride 99 mmol/L (98-107) 09/16/17 11:48 Carbon Dioxide 25 mmol/L (21-33) 09/16/17 11:48 Anion Gap 16 (10-20) 09/16/17 11:48 BUN 18 mg/dL (7-21) 09/16/17 11:48 Creatinine 0.5 mg/dl (0.8-1.5) L 09/16/17 11:48 Est GFR ( Amer) > 60 09/16/17 11:48 Est GFR (Non-Af Amer) > 60 09/16/17 11:48 Random Glucose 109 mg/dL (70-110) 09/16/17 11:48 Calcium 8.5 mg/dL (8.4-10.5) 09/16/17 11:48 Phosphorus 3.0 mg/dL (2.5-4.5) 09/16/17 11:48 Magnesium 1.8 mg/dL (1.7-2.2) 09/16/17 11:48 Total Bilirubin 0.4 mg/dL (0.2-1.3) 09/16/17 11:48 AST 25 U/L (17-59) 09/16/17 11:48 ALT 24 U/L (7-56) 09/16/17 11:48 Alkaline Phosphatase 91 U/L (38-126) 09/16/17 11:48 Troponin I < 0.01 ng/mL 09/16/17 11:48 Total Protein 6.3 g/dL (5.8-8.3) 09/16/17 11:48 Albumin 3.0 g/dL (3.0-4.8) 09/16/17 11:48 Globulin 3.3 gm/dL 09/16/17 11:48 Albumin/Globulin Ratio 0.9 (1.1-1.8) L 09/16/17 11:48 Procalcitonin 0.21 NG/ML (0.19-0.49) 09/17/17 07:00 Urine Color Light yellow (YELLOW) 09/18/17 18:45 Urine Appearance Clear (CLEAR) 09/18/17 18:45 Urine pH 6.0 (4.7-8.0) 09/18/17 18:45 Ur Specific [place] 1.015 (1.005-1.035) 09/18/17 18:45 Urine Protein 30 mg/dL (<30 mg/dL) H 09/18/17 18:45 Urine Glucose (UA) Negative mg/dL (NEGATIVE) 09/18/17 18:45 Urine Ketones Negative mg/dL (NEGATIVE) 09/18/17 18:45 Urine Blood Trace-intact (NEGATIVE) H 09/18/17 18:45 Urine Nitrate Negative (NEGATIVE) 09/18/17 18:45 Urine Bilirubin Negative (NEGATIVE) 09/18/17 18:45 Urine Urobilinogen 0.2 E.U./dL (<1 E.U./dL) 09/18/17 18:45 Ur Leukocyte Esterase Trace Jus/uL (NEGATIVE) H 09/18/17 18:45 Urine RBC 0 - 2 /hpf (0-2) 09/18/17 18:45 Urine WBC 1 - 3 /hpf (0-6) 09/18/17 18:45 Ur Epithelial Cells 0 - 2 /hpf (0-5) 09/18/17 18:45 Urine Bacteria Few (NEG) 09/18/17 18:45 Ur L.pneumophila Ag Negative (NEGATIVE) 09/17/17 15:33 - Hospital Course Hospital Course: This is an 87yo male with past medical history with metastatic prostate cancer s /p ADT and palliative radiation, indwelling holland, seizures, glaucoma who was admitted for hospital acquired pneumonia and delirium. Imaging and labs were seen and reviewed. CT chest showed multi-focal pneumonia. Septic work up was negative. Patient was placed on Doxycycline and Cefepime. ID was on consult and recommended 3 more days of Doxycycline, which was sent to patient's pharmacy. Patient was continued on his home medication for pain and seizures. Delirium improved. Recommend frequent education and re-orientation. Patient is DNR/DNI as per POLST. Palliative care was consulted for possible plans for hospice care in the future. This was discussed with patient's son Tj who states he is not ready to place his father on hospice at this time, but will consider it in the future. Patient will be discharged home and has 24hr health care. He will follow up with his PMD as outpatient. - Date & Time of H&P Date of H&P: 09/17/17 Time of H&P: 07:00 Discharge Exam - Head Exam Head Exam: NORMAL INSPECTION - Eye Exam Eye Exam: Normal appearance, PERRL Pupil Exam: NORMAL ACCOMODATION - Respiratory Exam Respiratory Exam: Clear to PA & Lateral, NORMAL BREATHING PATTERN, UNREMARKABLE. absent: Rhonchi, Wheezes, Respiratory Distress - Cardiovascular Exam Cardiovascular Exam: REGULAR RHYTHM, +S1, +S2. absent: Gallop, Rubs, Systolic Murmur - GI/Abdominal Exam GI & Abdominal Exam: Normal Bowel Sounds, Soft, Unremarkable. absent: Mass, Rebound, Rigid, Tenderness - Extremities Exam Extremities exam: normal inspection - Neurological Exam Neurological exam: CN II-XII Intact - Skin Skin Exam: Dry, Warm Discharge Plan - Discharge Medications Prescriptions: Doxycycline Hyclate [Doryx] 100 mg PO Q12 #6 cap - Follow Up Plan Condition: GOOD Disposition: HOME/ ROUTINE Instructions: Delirium (Confusion) Additional Instructions: 1. Follow up with PMD, Dr. Shields as outpatient 2. Antibiotics: Doxycycline 100mg twice per day x 3 days was sent to [facility] 3. Make sure patient is awake and alert during feeding Referrals: Glynn Shields MD [Primary Care Provider] - <Kenny Bae - Last Filed: 09/20/17 08:28> Provider - Provider Date of Admission: 09/16/17 13:29 Attending physician: Kenny Bae MD Primary care physician: Glynn Shields MD Hospital Course - Lab Results Lab Results: Most Recent Lab Values WBC 11.6 10^3/ul (4.5-11.0) H D 09/16/17 11:48 RBC 3.77 10^6/uL (3.5-6.1) 09/16/17 11:48 Hgb 11.4 g/dL (14.0-18.0) L 09/16/17 11:48 Hct 33.8 % (42.0-52.0) L 09/16/17 11:48 MCV 89.7 fl (80.0-105.0) D 09/16/17 11:48 MCH 30.2 pg (25.0-35.0) 09/16/17 11:48 MCHC 33.7 g/dl (31.0-37.0) 09/16/17 11:48 RDW 14.7 % (11.5-14.5) H 09/16/17 11:48 Plt Count 251 10^3/uL (120.0-450.0) 09/16/17 11:48 MPV 9.4 fl (7.0-11.0) 09/16/17 11:48 Gran % 63.6 % (50.0-68.0) 09/16/17 11:48 Lymph % (Auto) 27.0 % (22.0-35.0) 09/16/17 11:48 [place] % (Auto) 9.1 % (1.0-6.0) H 09/16/17 11:48 Eos % (Auto) 0.1 % (1.5-5.0) L 09/16/17 11:48 Baso % (Auto) 0.2 % (0.0-3.0) 09/16/17 11:48 Gran # 7.37 (1.4-6.5) H 09/16/17 11:48 Lymph # (Auto) 3.1 (1.2-3.4) 09/16/17 11:48 [place] # (Auto) 1.1 (0.1-0.6) H 09/16/17 11:48 Eos # (Auto) 0.0 (0.0-0.7) 09/16/17 11:48 Baso # (Auto) 0.02 K/mm3 (0.0-2.0) 09/16/17 11:48 Sodium 136 mmol/L (132-148) 09/16/17 11:48 Potassium 3.6 mmol/L (3.6-5.0) 09/16/17 11:48 Chloride 99 mmol/L (98-107) 09/16/17 11:48 Carbon Dioxide 25 mmol/L (21-33) 09/16/17 11:48 Anion Gap 16 (10-20) 09/16/17 11:48 BUN 18 mg/dL (7-21) 09/16/17 11:48 Creatinine 0.5 mg/dl (0.8-1.5) L 09/16/17 11:48 Est GFR ( Amer) > 60 09/16/17 11:48 Est GFR (Non-Af Amer) > 60 09/16/17 11:48 Random Glucose 109 mg/dL (70-110) 09/16/17 11:48 Calcium 8.5 mg/dL (8.4-10.5) 09/16/17 11:48 Phosphorus 3.0 mg/dL (2.5-4.5) 09/16/17 11:48 Magnesium 1.8 mg/dL (1.7-2.2) 09/16/17 11:48 Total Bilirubin 0.4 mg/dL (0.2-1.3) 09/16/17 11:48 AST 25 U/L (17-59) 09/16/17 11:48 ALT 24 U/L (7-56) 09/16/17 11:48 Alkaline Phosphatase 91 U/L (38-126) 09/16/17 11:48 Troponin I < 0.01 ng/mL 09/16/17 11:48 Total Protein 6.3 g/dL (5.8-8.3) 09/16/17 11:48 Albumin 3.0 g/dL (3.0-4.8) 09/16/17 11:48 Globulin 3.3 gm/dL 09/16/17 11:48 Albumin/Globulin Ratio 0.9 (1.1-1.8) L 09/16/17 11:48 Procalcitonin 0.21 NG/ML (0.19-0.49) 09/17/17 07:00 Urine Color Light yellow (YELLOW) 09/18/17 18:45 Urine Appearance Clear (CLEAR) 09/18/17 18:45 Urine pH 6.0 (4.7-8.0) 09/18/17 18:45 Ur Specific [place] 1.015 (1.005-1.035) 05/23/18 18:45 Urine Protein 30 mg/dL (<30 mg/dL) H 09/18/17 18:45 Urine Glucose (UA) Negative mg/dL (NEGATIVE) 09/18/17 18:45 Urine Ketones Negative mg/dL (NEGATIVE) 09/18/17 18:45 Urine Blood Trace-intact (NEGATIVE) H 09/18/17 18:45 Urine Nitrate Negative (NEGATIVE) 09/18/17 18:45 Urine Bilirubin Negative (NEGATIVE) 09/18/17 18:45 Urine Urobilinogen 0.2 E.U./dL (<1 E.U./dL) 09/18/17 18:45 Ur Leukocyte Esterase Trace Jus/uL (NEGATIVE) H 09/18/17 18:45 Urine RBC 0 - 2 /hpf (0-2) 09/18/17 18:45 Urine WBC 1 - 3 /hpf (0-6) 09/18/17 18:45 Ur Epithelial Cells 0 - 2 /hpf (0-5) 09/18/17 18:45 Urine Bacteria Few (NEG) 09/18/17 18:45 Ur L.pneumophila Ag Negative (NEGATIVE) 09/17/17 15:33 - Hospital Course Hospital Course: Pt seen and examined. Agree with above note of medical leader. Son is aware of pt going home today. Labs and medications reviewed. Culture is negative. DNR.
[2017-09-20 08:12] VITALS: BP 130/51; PULSE 89; TEMP 98.3; O2SAT 96
[2017-09-21 01:12] LABS: TB ANTIGEN MINUS NIL 0.03 IU/mL
== END 2017-09-20 12:08 | disposition home or self-care (01) | DRG 194 ==
LOC: ED 11:16 → ERH 13:29 → 5RSO 15:28
PROVIDERS: ADMIT Internal Medicine Nephrology; ATTEND Internal Medicine Nephrology
DX: J18.9 Pneumonia, unspecified organism (principal); C79.51 Secondary malignant neoplasm of bone; C61 Malignant neoplasm of prostate; G89.3 Neoplasm related pain (acute) (chronic); N40.0 Benign prostatic hyperplasia without lower urinary tract symptoms; F03.90 Unspecified dementia, unspecified severity, without behavioral disturbance, psychotic disturbance, mood disturbance, and anxiety; H40.9 Unspecified glaucoma; Y95 Nosocomial condition; R56.9 Unspecified convulsions; Z66 Do not resuscitate; Z87.440 Personal history of urinary (tract) infections; Z92.3 Personal history of irradiation; Z79.818 Long term (current) use of other agents affecting estrogen receptors and estrogen levels; Z87.891 Personal history of nicotine dependence; Z86.2 Personal history of diseases of the blood and blood-forming organs and certain disorders involving the immune mechanism

== ENCOUNTER 2018-01-27 12:57 | Inpatient (IN) | payer MEDICARE ==
[2018-01-27] MEDS ORDERED: Sodium Chloride 0.9% 1,000 ML IV STA ×2 (13:15)
[2018-01-27] MEDS ORDERED: Vancomycin 1gm in NS 250ml 1 GM/250 ML BAG IVPB STA (13:16)
[2018-01-27] MEDS ORDERED: Piperacillin/Tazobact 3.375 gm 100 ML IVPB STA (13:16)
--- NOTE | 2018-01-27 13:26 | ED PDOC ---
Arrival/HPI - General Time Seen by Provider: 01/27/18 13:00 Historian: Family EM Caveat: Altered Mental Status - Critical Care Critical Care Minutes: 30 minutes - History of Present Illness Narrative History of Present Illness (Text): 01/27/18 13:17 87 year old male, DNR/DNI, with past medical history of metastatic prostate cancer s/p ADT and palliative radiation, seizures, glaucoma, UTI, dementia with mild confusion at baseline and falls, presents to the Emergency department accompanied by son for evaluation of increasing AMS and shortness of breath since 4am this morning. Patient was admitted to the hospital in July for similar complaints and was treated for pneumonia and UTI. As per son, who is patient's POA, patient is more confused than baseline and has not been receiving treatment for his malignancy. Son also informs patient is DNR/DNI. At bedside, patient is awake, alert and is able to follow some commands but does verbalize any complaints. HPI and ROS limited secondary to patient's AMS. PMD: Dr. Shields Time/Duration: 4-6 hours Symptom Onset: Gradual Symptom Course: Unchanged Activities at Onset: Light Context: Home Past Medical History - Provider Review Nursing Documentation Reviewed: Yes - Infectious Disease Hx of Infectious Diseases: None - Cardiac Hx Cardiac Disorders: No - Pulmonary Hx Respiratory Disorders: Yes (H/O SMOKING CIGARETTES) Other/Comment: EMPYEMA/SARCOIDOSIS - Neurological Hx Dizziness: Yes (syncope) Hx Seizures: Yes (last seizure 20 yrs ago) - HEENT Hx Cataracts: Yes (with bilateral sx) - Renal Hx Renal Disorder: Yes Other/Comment: chronic holland-Prostate ca. - Endocrine/Metabolic Hx Endocrine Disorders: No - Hematological/Oncological Hx Blood Disorders: Yes (radiation theraphy had 9 rounds already) Hx Cancer: Yes (prostate ca with mets to bones) - Integumentary Hx Dermatological Disorder: Yes Other/Comment: 2-18 bilateral le edema +2 more to right .Pitting with dry thin scaly flakes. - Musculoskeletal/Rheumatological Hx Falls: Yes - Gastrointestinal Hx Gastrointestinal Disorders: Yes (constipation) - Genitourinary/Gynecological Hx Urinary Tract Infection: Yes - Psychiatric Hx Psychophysiologic Disorder: Yes Hx Substance Use: No - Anesthesia Hx Anesthesia: No Family/Social History - Physician Review Nursing Documentation Reviewed: Yes Family/Social History: No Known Family HX Smoking Status: Former Smoker Hx Alcohol Use: Yes (occasional) Hx Substance Use: No Allergies/Home Meds Allergies/Adverse Reactions: Allergies No Known Allergies Allergy (Verified 01/27/18 21:18) Review of Systems - Review of Systems Systems not reviewed;Unavailable: Altered Mental Status Constitutional: Fevers Respiratory: SOB Neurological: Other (AMS) Physical Exam Vital Signs Reviewed: Yes Vital Signs Temp Pulse Resp BP Pulse Ox 01/27/18 13:09 104.6 F H 126 H 18 113/59 L 95 Temperature: Febrile Blood Pressure: Normal Pulse: Tachycardic Respiratory Rate: Normal Appearance: Positive for: Ill-Appearing, Uncomfortable, Cachectic, Other (Pale) Pain Distress: None Mental Status: Positive for: Alert and Oriented X 3 Finger Stick Blood Glucose: 104 - Systems Exam Head: Present: Atraumatic, Normocephalic Pupils: Present: PERRL Extroacular Muscles: Present: EOMI Conjunctiva: Present: Normal Mouth: Present: Moist Mucous Membranes Respiratory/Chest: Present: Other (Coarse breath sounds bilaterally). No: Respiratory Distress, Accessory Muscle Use Cardiovascular: Present: Regular Rate and Rhythm, Normal S1, S2. No: Murmurs Abdomen: Present: Tenderness (nonfocal abdominal tenderness). No: Distention, Peritoneal Signs Back: Present: Normal Inspection Upper Extremity: Present: Normal Inspection. No: Cyanosis, Edema Lower Extremity: Present: Normal Inspection. No: Edema Neurological: Present: GCS=15, CN II-XII Intact Skin: Present: Warm, Dry, Pale. No: Rashes Psychiatric: Present: Alert Medical Decision Making ED Course and Treatment: 01/27/18 13:14 Impression: 87 year old male presents to the Emergency department for evaluation of increasing AMS and fever ro sepsis pna, uti Plan: -- VBG -- EKG -- Labs -- Chest X-ray -- IV Fluids -- Tylenol -- Vancomycin -- Zosyn -- Blood Culture -- Urine Culture -- Urinalysis -- Influenza A B -- Reassess and disposition Prior Visits: Notes and results from previous visits were reviewed. Progress Notes: 01/27/18 13:10 EKG: Ordered, reviewed, and independently interpreted the EKG. Rate : 126 BPM Rhythm : Sinus Tachycardia Interpretation : RBBB. No interval change from previous. 01/27/18 15:35 Chest X-ray reviewed by radiologist, shows no acute processes. CT of Abdomen/Pelvis reviewed by radiologist, shows: FINDINGS: LOWER THORAX: 1.6 cm irregular left lower lobe nodule. Recommend further evaluation with CT examination of the chest. Trace left pleural effusion. LIVER: Unremarkable. No gross lesion or ductal dilatation. GALLBLADDER AND BILE DUCTS: Unremarkable. PANCREAS: Focal irregular increased attenuation of the retroperitoneal fat adjacent to the pancreatic tail. This could represent focal pancreatitis. Please correlate with clinical and laboratory evaluation. No jada peripancreatic fluid is appreciated. There is no pancreatic mass or ductal dilatation seen. SPLEEN: Unremarkable. ADRENALS: Unremarkable. No mass. KIDNEYS AND URETERS: Unremarkable. No hydronephrosis. No solid mass. VASCULATURE: Unremarkable. No aortic aneurysm. BOWEL: Unremarkable. No obstruction. No gross mural thickening. APPENDIX: Unremarkable. Normal appendix. PERITONEUM: Unremarkable. No free fluid. No free air. LYMPH NODES: Unremarkable. No enlarged lymph nodes. BLADDER: Decompressed around Holland catheter balloon REPRODUCTIVE: Enlarged prostate. BONES: Multifocal sclerotic osseous metastasis consistent with known metastatic prostate malignancy. This involves thoracolumbar vertebral bodies and sacrum, the sternum, and multiple bilateral ribs. OTHER FINDINGS: None. IMPRESSION: Possible acute focal pancreatitis adjacent to the tip of the pancreatic tail. Please correlate with clinical and laboratory evaluation. Enlarged prostate. Multifocal sclerotic osseous metastasis consistent with known prostate malignancy. Holland catheter. Trace left pleural effusion. 1.6 cm irregular nodule in left lower lobe for which further evaluation is advised with CT examination of the chest 01/27/18 15:50 CT head reviewed by radiologist, shows no acute findings. 01/29/18 17:44 pt accepted by [facility]. antibitoics doesd. urine positive. dni dnr poor prognosis. - Critical Care Critical Care Minutes: 30 minutes - Lab Interpretations Lab Results: Lab Results 01/27/18 13:01: POC Glucose (mg/dL) 104 - RAD Interpretation Radiology Orders: 01/27/18 13:14 CHEST PORTABLE [RAD] Stat Roller Helper: Radiologist - Medication Orders Current Medication Orders: Sodium Chloride (Sodium Chloride 0.9%) 1,000 mls @ 999 mls/hr IV .Q1H1M STA Stop: 01/27/18 14:15 Sodium Chloride (Sodium Chloride 0.9%) 1,000 mls @ 999 mls/hr IV .Q1H1M STA Stop: 01/27/18 14:15 - Scribe Statement The provider has reviewed the documentation as recorded by the Scribe Hilda Cruz. All medical record entries made by the Elaineibe were at my direction and personally dictated by me. I have reviewed the chart and agree that the record accurately reflects my personal performance of the history, physical exam, medical decision making, and the department course for this patient. I have also personally directed, reviewed, and agree with the discharge instructions and disposition. Disposition/Present on Arrival - Present on Arrival Any Indicators Present on Arrival: No History of DVT/PE: No History of Uncontrolled Diabetes: No Urinary Catheter: No History Surgical Site Infection Following: None - Disposition Have Diagnosis and Disposition been Completed?: Yes Diagnosis: Urinary tract infection, Sepsis, Altered mental state Disposition: HOSPITALIZED Disposition Time: 02:00 Patient Problems: Current Active Problems Problem Status Onset Altered mental state Acute Sepsis Acute Urinary tract infection Acute Condition: GUARDED
[2018-01-27 13:36] LABS: VENOUS BLOOD GAS BASE EXCESS -2.9 mmol/L (0.0-2.0); VENOUS BLOOD GAS PO2 158 mm/Hg (30-55); VENOUS BLOOD PH 7.52 (7.32-7.43)
[2018-01-27 13:44] LABS: EOS % 0.1 % (1.5-5.0); GRAN # 5.85 (1.4-6.5); GRAN % 78.4 % (50.0-68.0); HEMOGLOBIN 11.3 g/dL (14.0-18.0); LYMPH # 1.6 (1.2-3.4); LYMPH % 20.7 % (22.0-35.0); MEAN CELL VOLUME 90.4 fl (80.0-105.0); MEAN CORPUSCULAR HEMOGLOBIN 31.1 pg (25.0-35.0); MEAN CORPUSCULAR HGB CONC 34.5 g/dl (31.0-37.0); MEAN PLATELET VOLUME 9.5 fl (7.0-11.0); MONO # 0.1 (0.1-0.6); MONO % 0.8 % (1.0-6.0); RBC 3.63 10^6/uL (3.5-6.1); RED CELL DISTRIBUTION WIDTH 13.2 % (11.5-14.5); WHITE BLOOD COUNT 7.5 10^3/ul (4.5-11.0)
[2018-01-27 13:48] LABS: INR 1.55; PARTIAL THROMBOPLASTIN TIME 27.9 Seconds (25.1-36.5); PROTHROMBIN TIME 17.8 SECONDS (9.4-12.5)
[2018-01-27 13:52] LABS: ALBUMIN 3.7 g/dL (3.0-4.8); BILIRUBIN,DIRECT 0.6 mg/dL (0.0-0.4); CALCIUM 8.5 mg/dL (8.4-10.5)
[2018-01-27 14:02] LABS: TROPONIN I 0.06 ng/mL
[2018-01-27 14:05] LABS: PH,URINE 8.5 (4.7-8.0); URINE BILIRUBIN NEGATIVE (NEGATIVE); URINE BLOOD LARGE (NEGATIVE); URINE GLUCOSE (UA) NEGATIVE (NEGATIVE); URINE LEUKOCYTE ESTERASE LARGE Leu/uL (NEGATIVE); URINE PROTEIN 100 mg/dL (<30 mg/dL); URINE UROBILINOGEN 0.2 E.U./dL (<1 E.U./dL)
[2018-01-27 14:12] LABS: URINE APPEARANCE SL CLOUDY (CLEAR); URINE COLOR DARK YELLOW (YELLOW)
[2018-01-27 14:24] LABS: URINE BACTERIA LARGE (NEG); URINE RBC TNTC /hpf (0-2); URINE WBC TNTC /hpf (0-6)
--- NOTE | 2018-01-27 14:29 | RAD ---
Date of service: 01/27/2018 HISTORY: sepsis COMPARISON: 09/16/2017 FINDINGS: LUNGS: No active pulmonary disease. PLEURA: No significant pleural effusion identified, no pneumothorax apparent. CARDIOVASCULAR: Normal. OSSEOUS STRUCTURES: No significant abnormalities. VISUALIZED UPPER ABDOMEN: Normal. OTHER FINDINGS: None. IMPRESSION: No active disease.
--- NOTE | 2018-01-27 14:35 | CT ---
Date of service: 01/27/2018 PROCEDURE: CT HEAD WITHOUT CONTRAST. HISTORY: ams COMPARISON: 04/08/2016 TECHNIQUE: Axial computed tomography images were obtained through the head/brain without intravenous contrast. Radiation dose: Total exam DLP = 921 mGy-cm. This CT exam was performed using one or more of the following dose reduction techniques: Automated exposure control, adjustment of the mA and/or kV according to patient size, and/or use of iterative reconstruction technique. FINDINGS: HEMORRHAGE: No intracranial hemorrhage. BRAIN: No mass effect or edema. No atrophy or chronic microvascular ischemic changes. VENTRICLES: Unremarkable. No hydrocephalus. CALVARIUM: Unremarkable. PARANASAL SINUSES: Unremarkable as visualized. No significant inflammatory changes. MASTOID AIR CELLS: Unremarkable as visualized. No inflammatory changes. OTHER FINDINGS: None. IMPRESSION: No acute findings
--- NOTE | 2018-01-27 15:31 | CT ---
Date of service: 01/27/2018 PROCEDURE: CT Abdomen and Pelvis without intravenous contrast HISTORY: sepsis h/o of metastatic prostate ca COMPARISON: 05/14/2017 TECHNIQUE: Without contrast.. Contrast dose: 0 Radiation dose: Total exam DLP = 1038.86 mGy-cm. This CT exam was performed using one or more of the following dose reduction techniques: Automated exposure control, adjustment of the mA and/or kV according to patient size, and/or use of iterative reconstruction technique. FINDINGS: LOWER THORAX: 1.6 cm irregular left lower lobe nodule. Recommend further evaluation with CT examination of the chest. Trace left pleural effusion. LIVER: Unremarkable. No gross lesion or ductal dilatation. GALLBLADDER AND BILE DUCTS: Unremarkable. PANCREAS: Focal irregular increased attenuation of the retroperitoneal fat adjacent to the pancreatic tail. This could represent focal pancreatitis. Please correlate with clinical and laboratory evaluation. No jada peripancreatic fluid is appreciated. There is no pancreatic mass or ductal dilatation seen. SPLEEN: Unremarkable. ADRENALS: Unremarkable. No mass. KIDNEYS AND URETERS: Unremarkable. No hydronephrosis. No solid mass. VASCULATURE: Unremarkable. No aortic aneurysm. BOWEL: Unremarkable. No obstruction. No gross mural thickening. APPENDIX: Unremarkable. Normal appendix. PERITONEUM: Unremarkable. No free fluid. No free air. LYMPH NODES: Unremarkable. No enlarged lymph nodes. BLADDER: Decompressed around Bray catheter balloon REPRODUCTIVE: Enlarged prostate. BONES: Multifocal sclerotic osseous metastasis consistent with known metastatic prostate malignancy. This involves thoracolumbar vertebral bodies and sacrum, the sternum, and multiple bilateral ribs. OTHER FINDINGS: None. IMPRESSION: Possible acute focal pancreatitis adjacent to the tip of the pancreatic tail. Please correlate with clinical and laboratory evaluation. Enlarged prostate. Multifocal sclerotic osseous metastasis consistent with known prostate malignancy. Bray catheter. Trace left pleural effusion. 1.6 cm irregular nodule in left lower lobe for which further evaluation is advised with CT examination of the chest.
[2018-01-27] MEDS ORDERED: Magnesium Sulfate 1 gm in D5W 1 GM/100 ML BAG IVPB ONE (17:22)
[2018-01-27] MEDS ORDERED: Sodium Chloride 0.9% 1,000 ML IV SCH (17:30)
--- NOTE | 2018-01-27 17:35 | CARD ---
APPROVED REPORT Date of service: 01/27/2018 EKG Measurement Heart [id number] <Conclusion> Sinus tachycardia with fusion complexes Right bundle branch block Inferior infarct, age undetermined Abnormal ECG
[2018-01-27] MEDS: Sodium Chloride 0.9% 1,000 ML IV SCH (22:09)
[2018-01-27 23:03] VITALS: BMI 24.7
[2018-01-27] MEDS ORDERED: Influenza Vaccine 60 mcg/0.5 mL SYR (4YR UP) IM ONE (23:03)
[2018-01-27] MEDS ORDERED: Pneumococcal 23-Valent Vaccine IM ONE (23:03)
[2018-01-27] MEDS ORDERED: Cefepime 1gm in NS 100ml 1 GM/100 ML BAG IVPB SCH (23:45)
[2018-01-28] MEDS: Sodium Chloride 0.9% 1,000 ML IV SCH (05:56)
--- NOTE | 2018-01-28 06:20 | CP.PCM.HP ---
<Matilde Casey - Last Filed: 01/28/18 12:38> History of Present Illness - History of Present Illness History of Present Illness: H&P for Lakisha Dan PGY3 This is an 87yo male with past medical history metastatic prostate cancer s/p ADT and palliative radiate, seizures, glaucoma, dementia, UTI w/ indwelling holland (+ for E.coli and Enterococcus in the past) who was brought to ED by son for AMS. Patient was lethargic on exam and A&O x 2. History was obtained through patient as well as previous records. Son was also at bedside who states that he was called by the 24hr health aid who said the patient had a fever and was hyperventilating. They decided to call the ambulance and take him to the ED. Patient states he has been having some lower abdominal pain. According to ED record, son states patient was feeling short of breath and was more confused than normal. In the ED, head CT did not show any acute disease and CXR did not show evidence of pneumonia. Patient was found to be febrile with positive UA for UTI. This AM patient states he does not have shortness of breath, chest pain, nausea/vomiting/diarrhea, numbness/tingling, fever/chills. Past medical history: metastatic prostate cancer s/p ADT and palliative radiate, seizures, glaucoma, dementia, UTI w/ indwelling holland (+ for E.coli and Enterococcus in the past) Past surgical history: bilateral cataract surgery Home meds: As per MAR Allergies: NKDA Social history: Denies EtOH, drug or tobacco use. Family history: non-contributory Present on Admission - Present on Admission Any Indicators Present on Admission: Yes Urinary Catheter: Yes Review of Systems - Review of Systems All systems: reviewed and no additional remarkable complaints except Review of Systems: 12 point ROS reviewed as per HPI and is otherwise negative Past Patient History - Infectious Disease Hx of Infectious Diseases: None - Past Social History Smoking Status: Former Smoker - CARDIAC Hx Cardiac Disorders: No - PULMONARY Hx Respiratory Disorders: Yes (H/O SMOKING CIGARETTES) Hx Pneumonia: Yes Other/Comment: EMPYEMA/SARCOIDOSIS - NEUROLOGICAL Hx Neurological Disorder: Yes Hx Dizziness: Yes (syncope) Hx Seizures: Yes (last seizure 20 yrs ago) - HEENT Hx HEENT Problems: Yes Hx Cataracts: Yes (with bilateral sx) - RENAL Hx Chronic Kidney Disease: Yes Other/Comment: chronic holland-Prostate ca. - ENDOCRINE/METABOLIC Hx Endocrine Disorders: No - HEMATOLOGICAL/ONCOLOGICAL Hx Blood Disorders: Yes (radiation theraphy had 9 rounds already) Hx Cancer: Yes (prostate ca with mets to bones) - INTEGUMENTARY Hx Dermatological Problems: Yes Other/Comment: 2 bilateral le edema +2 more to right .Pitting with dry thin scaly flakes. - MUSCULOSKELETAL/RHEUMATOLOGICAL Hx Musculoskeletal Disorders: Yes Hx Falls: Yes - GASTROINTESTINAL Hx Gastrointestinal Disorders: Yes (constipation) - GENITOURINARY/GYNECOLOGICAL Hx Urinary Tract Infection: Yes - PSYCHIATRIC Hx Psychophysiologic Disorder: Yes Hx Substance Use: No - SURGICAL HISTORY Hx Surgeries: Yes (lung sx,right foot sx-clubbed foot,bilateral cataract sx.) - ANESTHESIA Hx Anesthesia: No Meds Allergies/Adverse Reactions: Allergies Allergy/AdvReac Type Severity Reaction Status Date / Time No Known Allergies Allergy Verified 01/27/18 21:18 Physical Exam - Constitutional Appears: No Acute Distress - Head Exam Head Exam: ATRAUMATIC, NORMAL INSPECTION, NORMOCEPHALIC - Eye Exam Eye Exam: Normal appearance, PERRL Pupil Exam: NORMAL ACCOMODATION, PERRL - ENT Exam ENT Exam: Mucous Membranes Moist - Respiratory Exam Respiratory Exam: Clear to Auscultation Bilateral, NORMAL BREATHING PATTERN. absent: Rales, Rhonchi, Wheezes - Cardiovascular Exam Cardiovascular Exam: REGULAR RHYTHM, +S1, +S2. absent: Gallop, Rubs, Systolic Murmur - GI/Abdominal Exam GI & Abdominal Exam: Normal Bowel Sounds, Soft, Tenderness (suprapubic ). absent: Mass, Rebound, Rigid - Extremities Exam Extremities exam: Negative for: calf tenderness, pedal edema - Neurological Exam Neurological exam: Alert, CN II-XII Intact - Psychiatric Exam Psychiatric exam: Normal Affect, Normal Mood - Skin Skin Exam: Dry, Warm Results - Vital Signs Recent Vital Signs: Last Vital Signs Temp 97.8 F 01/28/18 00:01 Pulse 89 01/28/18 01:45 Resp 20 01/28/18 00:01 BP 104/58 L 01/28/18 00:01 Pulse Ox 97 01/28/18 00:01 - Labs Result Diagrams: 01/28/18 06:30 01/28/18 06:30 Labs: Laboratory Results - last 24 hr 01/27/18 01/27/18 01/27/18 13:01 13:10 13:10 WBC 7.5 D RBC 3.63 Hgb 11.3 L Hct 32.8 L MCV 90.4 MCH 31.1 MCHC 34.5 RDW 13.2 Plt Count 157 MPV 9.5 Gran % 78.4 H Lymph % (Auto) 20.7 L [place] % (Auto) 0.8 L Eos % (Auto) 0.1 L Baso % (Auto) 0.0 Gran # 5.85 Lymph # (Auto) 1.6 [place] # (Auto) 0.1 Eos # (Auto) 0.0 Baso # (Auto) 0.00 PT INR APTT pO2 158 H VBG pH 7.52 H VBG pCO2 22.0 L VBG HCO3 18.0 L VBG Total CO2 18.7 L VBG O2 Sat (Calc) 97.3 H VBG Base Excess -2.9 L VBG Potassium 4.7 Sodium 125.0 L Chloride 96.0 L Glucose 108 Lactate 1.8 FiO2 21.0 Potassium Carbon Dioxide Anion Gap BUN Creatinine Est GFR ( Amer) Est GFR (Non-Af Amer) POC Glucose (mg/dL) 104 Random Glucose Calcium Magnesium Total Bilirubin Direct Bilirubin AST ALT Alkaline Phosphatase Lactate Dehydrogenase Total Creatine Kinase Troponin I NT-Pro-B Natriuret Pep Total Protein Albumin Globulin Albumin/Globulin Ratio Lipase Venous Blood Potassium 4.7 Urine Color Urine Appearance Urine pH Ur Specific [place] Urine Protein Urine Glucose (UA) Urine Ketones Urine Blood Urine Nitrate Urine Bilirubin Urine Urobilinogen Ur Leukocyte Esterase Urine RBC Urine WBC Urine Bacteria Influenza Typ A,B (EIA) 01/27/18 01/27/18 01/27/18 13:10 13:10 13:50 WBC RBC Hgb Hct MCV MCH MCHC RDW Plt Count MPV Gran % Lymph % (Auto) [place] % (Auto) Eos % (Auto) Baso % (Auto) Gran # Lymph # (Auto) [place] # (Auto) Eos # (Auto) Baso # (Auto) PT 17.8 H INR 1.55 APTT 27.9 pO2 VBG pH VBG pCO2 VBG HCO3 VBG Total CO2 VBG O2 Sat (Calc) VBG Base Excess VBG Potassium Sodium 129 L Chloride 95 L Glucose Lactate FiO2 Potassium 4.9 Carbon Dioxide 17 L Anion Gap 22 H BUN 60 H Creatinine 1.5 Est GFR ( Amer) 53 Est GFR (Non-Af Amer) 44 POC Glucose (mg/dL) Random Glucose 111 H Calcium 8.5 Magnesium 1.6 L Total Bilirubin 0.7 Direct Bilirubin 0.6 H AST 36 ALT 16 Alkaline Phosphatase 150 H D Lactate Dehydrogenase 606 Total Creatine Kinase 109 Troponin I 0.06 D NT-Pro-B Natriuret Pep 4640 H Total Protein 7.3 Albumin 3.7 Globulin 3.7 Albumin/Globulin Ratio 1.0 L Lipase 31 Venous Blood Potassium Urine Color Dark yellow Urine Appearance Sl cloudy Urine pH 8.5 Ur Specific [place] 1.015 Urine Protein 100 H Urine Glucose (UA) Negative Urine Ketones Negative Urine Blood Large H Urine Nitrate Positive H Urine Bilirubin Negative Urine Urobilinogen 0.2 Ur Leukocyte Esterase Large H Urine RBC Tntc Urine WBC Tntc Urine Bacteria Large Influenza Typ A,B (EIA) 01/27/18 15:30 WBC RBC Hgb Hct MCV MCH MCHC RDW Plt Count MPV Gran % Lymph % (Auto) [place] % (Auto) Eos % (Auto) Baso % (Auto) Gran # Lymph # (Auto) [place] # (Auto) Eos # (Auto) Baso # (Auto) PT INR APTT pO2 VBG pH VBG pCO2 VBG HCO3 VBG Total CO2 VBG O2 Sat (Calc) VBG Base Excess VBG Potassium Sodium Chloride Glucose Lactate FiO2 Potassium Carbon Dioxide Anion Gap BUN Creatinine Est GFR ( Amer) Est GFR (Non-Af Amer) POC Glucose (mg/dL) Random Glucose Calcium Magnesium Total Bilirubin Direct Bilirubin AST ALT Alkaline Phosphatase Lactate Dehydrogenase Total Creatine Kinase Troponin I NT-Pro-B Natriuret Pep Total Protein Albumin Globulin Albumin/Globulin Ratio Lipase Venous Blood Potassium Urine Color Urine Appearance Urine pH Ur Specific [place] Urine Protein Urine Glucose (UA) Urine Ketones Urine Blood Urine Nitrate Urine Bilirubin Urine Urobilinogen Ur Leukocyte Esterase Urine RBC Urine WBC Urine Bacteria Influenza Typ A,B (EIA) Negative for flu a/b Assessment & Plan - Assessment and Plan (Free Text) Assessment: This is an 87yo male with past medical history metastatic prostate cancer s/p ADT and palliative radiate, seizures, glaucoma, dementia, UTI w/ indwelling holland (+ for E.coli and Enterococcus in the past) who is admitted for 1. AMS - most likely secondary to UTI with underlying dementia 2. Sepsis secondary to UTI - UA positive 3. Seizures 4. Metastatic prostate ca - currently not on treatment Plan: ID is on consult. Septic work up pending. Patient started on Merrem. [place] catheter changed in ED. Tylenol prn fever. Continue home meds of Tegetrol. Patient is NPO for now and will get formal swallow eval. Will advance diet after evaluation. As per POLST, patient is DNR/DNI. Patient has 24hr home health aid and is mostly bed bound. He will be d/c home once he is ready for d/c. Case seen, discussed and reviewed with Dr. Bae. Lakisha Casey PGY3 - Date & Time Date: 01/28/18 Time: 12:39 <Kenny Bae S - Last Filed: 01/28/18 15:54> Results - Vital Signs Recent Vital Signs: Last Vital Signs Temp 97.6 F 01/28/18 12:00 Pulse 92 H 01/28/18 14:00 Resp 18 01/28/18 12:00 BP 103/49 L 01/28/18 12:00 Pulse Ox 97 01/28/18 06:00 - Labs Result Diagrams: 01/28/18 06:30 01/28/18 06:30 Labs: Laboratory Results - last 24 hr 01/27/18 01/28/18 01/28/18 15:30 06:30 06:30 WBC 16.8 H D RBC 3.32 L Hgb 10.2 L Hct 31.3 L MCV 94.3 D MCH 30.7 MCHC 32.6 RDW 14.0 Plt Count 150 MPV 10.0 Sodium 134 Potassium 4.3 Chloride 101 Carbon Dioxide 21 Anion Gap 17 BUN 58 H Creatinine 1.3 Est GFR ( Amer) > 60 Est GFR (Non-Af Amer) 52 Random Glucose 69 L Calcium 8.1 L Phosphorus 6.4 H Magnesium 2.1 Total Bilirubin 0.4 AST 51 ALT 21 Alkaline Phosphatase 98 Total Protein 6.7 Albumin 3.2 Globulin 3.6 Albumin/Globulin Ratio 0.9 L Influenza Typ A,B (EIA) Negative for flu a/b Assessment & Plan - Assessment and Plan (Free Text) Plan: Pt seen and examined by me. I have reviewed the note by the medical esthetician. The case was discussed and reviewed with the resident. I reviewed the medications and labs.Pt with confusion due to delirium. He may have UTI. Pt was started on IV Abx. Pt is DNR/DNI.Pt with an aid at home.
[2018-01-28 07:01] LABS: HEMOGLOBIN 10.2 g/dL (14.0-18.0); MEAN CELL VOLUME 94.3 fl (80.0-105.0); MEAN CORPUSCULAR HEMOGLOBIN 30.7 pg (25.0-35.0); MEAN CORPUSCULAR HGB CONC 32.6 g/dl (31.0-37.0); RBC 3.32 10^6/uL (3.5-6.1); WHITE BLOOD COUNT 16.8 10^3/ul (4.5-11.0)
[2018-01-28 07:25] LABS: ALB/GLOB RATIO 0.9 (1.1-1.8); ALBUMIN 3.2 g/dL (3.0-4.8); ALT/SGPT 21 U/L (7-56); AST/SGOT 51 U/L (17-59); BLOOD UREA NITROGEN 58 mg/dL (7-21); CALCIUM 8.1 mg/dL (8.4-10.5); GFR NON-AFRICAN AMERICAN 52
[2018-01-28] MEDS: Meropenem IV 1 gm in NS 50 ML IVPB SCH ×2 (10:25→21:27)
--- NOTE | 2018-01-29 05:03 | CON ---
DATE: 01/28/2018 LOCATION: The patient was seen earlier this morning in room 277, bed 1. CHIEF COMPLAINT: Weakness times days. HISTORY OF PRESENT ILLNESS: This is an 87-year-old male with history of prostate cancer, metastasis to the bone, history of E. coli urinary tract infection, chronic Bray catheter, history of Klebsiella urinary tract infections, history of seizures, glaucoma. The patient has received Lupron hormonal therapy, had radiation to the pelvis. Infectious Disease consultation requested. REVIEW OF SYSTEMS: Reveals the patient is a poor historian. There has been fevers reported. Mild shortness of breath and no chest pain, no abdominal pain, diarrhea. No headaches or blurred vision. No new rash, no joint pain. A 12-point review of systems was performed. PAST MEDICAL HISTORY: Significant for prostate cancer, metastasis to the bone, E. coli urinary tract infection, Klebsiella urinary tract infection, seizures, glaucoma. The patient had radiation, on Lupron therapy and the patient with renal disease, arthritis. PAST SURGICAL HISTORY: Significant for right foot surgery, lung surgery, bilateral cataract surgery. ALLERGIES: THE PATIENT HAS NO KNOWN ALLERGIES. MEDICATIONS AT HOME: Reviewed. PHYSICAL EXAMINATION VITAL SIGNS: The patient's temperature is 97, T-max is 104.6, heart rate of 98, up to 126, respiratory rate of 20, blood pressure is 103/40. HEENT: Examination of HEENT is unremarkable. NECK: Supple. LUNGS: Have decreased breath sounds. HEART: Normal S1, S2. ABDOMEN: Soft, nontender. No organomegaly. No rebound. LABORATORY DATA: Laboratory examination reveals a white count is up to 16,800. It was 7.85 yesterday. Coagulation is noted. Chemistries are noted. The patient's creatinine of 1.5. It was 0.5. BNP is 4640. Alkaline phosphatase 150. Urinalysis is noted, wbc's too numerous to count, large bacteria. Influenza is negative. Blood cultures are reported to be Gram-negative olimpia in the blood. ASSESSMENT AND PLAN: An 87-year-old male with prostate cancer with metastasis to the bone with history of Escherichia coli., Klebsiella urinary tract infection, history of glaucoma, admitted with a temperature of 104, leukocytosis with severe sepsis, Gram-negative olimpia bacteremia urine as the source from chronic Bray catheter and acute kidney injury. We will treat the patient with meropenem pending identification with Gram-negative olimpia in the blood. We are also awaiting for urine culture. The patient does have an elevated alkaline phosphatase, did have a CAT scan of the abdomen and pelvis, unremarkable gallbladder and bile duct. We will follow with you. Evangelist García MD
--- NOTE | 2018-01-29 08:08 | CP.PCM.PN ---
<Matilde Casey - Last Filed: 01/29/18 11:03> Subjective - Date & Time of Evaluation Date of Evaluation: 01/29/18 Time of Evaluation: 07:00 - Subjective Subjective: Medicine Progress note for Lakisha Dan PGY3 Patient seen and examined at bedside. No acute overnight events as per nursing staff. Patient is awake and alert this AM. Mentation has improved. He is complaining of suprapubic tenderness but otherwise denies chest pain, shortness of breath, nausea/vomiting/diarrhea, fever/chills, numbness/tingling. Objective - Vital Signs/Intake and Output Vital Signs (last 24 hours): Temp Pulse Resp BP Pulse Ox 98.6 F 108 H 22 128/68 96 01/29/18 06:00 01/29/18 06:00 01/29/18 06:00 01/29/18 06:00 01/29/18 06:00 Intake and Output: 01/29/18 01/29/18 06:59 18:59 Intake Total 720 Output Total 1900 Balance -1180 - Medications Medications: Current Medications Acetaminophen (Tylenol 325mg Tab) 650 mg PO Q6H PRN PRN Reason: Fever >100.4 F Carbamazepine (Tegretol) 200 mg PO TID TARA; Protocol Last Admin: 01/28/18 17:22 Dose: 200 mg Meropenem (Merrem Iv 1 Gm Premix) 50 mls @ 100 mls/hr IVPB Q12 TARA; Protocol Last Admin: 01/28/18 21:27 Dose: 100 mls/hr - Labs Labs: 01/28/18 06:30 01/28/18 06:30 PT 17.8 SECONDS (9.4-12.5) H 01/27/18 13:10 INR 1.55 01/27/18 13:10 APTT 27.9 Seconds (25.1-36.5) 01/27/18 13:10 - Constitutional Appears: No Acute Distress - Head Exam Head Exam: ATRAUMATIC, NORMAL INSPECTION, NORMOCEPHALIC - Eye Exam Eye Exam: Normal appearance, PERRL Pupil Exam: NORMAL ACCOMODATION, PERRL - ENT Exam ENT Exam: Mucous Membranes Moist - Respiratory Exam Respiratory Exam: Clear to Ausculation Bilateral, NORMAL BREATHING PATTERN. absent: Rales, Rhonchi, Wheezes - Cardiovascular Exam Cardiovascular Exam: REGULAR RHYTHM, +S1, +S2. absent: Gallop, Rubs, Murmur - GI/Abdominal Exam GI & Abdominal Exam: Soft, Tenderness (suprapubic ), Normal Bowel Sounds. absent: Rigid, Mass, Rebound - Extremities Exam Extremities Exam: Normal Capillary Refill, Normal Inspection. absent: Calf Tenderness, Pedal Edema - Neurological Exam Neurological Exam: Alert, Awake, CN II-XII Intact. absent: Oriented x3 (A&O x 1-2 ) - Psychiatric Exam Psychiatric exam: Normal Affect, Normal Mood - Skin Skin Exam: Dry, Warm Assessment and Plan - Assessment and Plan (Free Text) Assessment: 1. AMS- resolved - secondary to UTI with underlying dementia 2. Sepsis secondary to UTI - UA positive 3. Seizures 4. Metastatic prostate ca - currently not on treatment 5. Constipation Plan: Labs and imaging reviewed. Awaiting urine culture. ID is on consult. Patient is on Merrem. Will continue Tegetrol for history of seizures. Patient's mentation is now at baseline. He passed swallow eval and diet adjusted accordingly. Patient placed on Miralax for constipation. Patient has not had BM in 2 days as per nurse. I spoke with son at length today to give him an update. The son verbalized and agreed with the plan of possible d/c home tomorrow once urine culture comes back. Case seen, discussed and reviewed with Dr. Bae. Lakisha Casey PGY3 <Kenny Bae S - Last Filed: 02/04/18 20:41> Objective - Vital Signs/Intake and Output Vital Signs (last 24 hours): Temp Pulse Resp BP Pulse Ox 97.8 F 94 H 18 112/50 L 97 02/04/18 14:00 02/04/18 14:00 02/04/18 14:00 02/04/18 14:00 02/04/18 14:00 - Labs Labs: 02/02/18 06:30 02/03/18 07:30 PT 17.8 SECONDS (9.4-12.5) H 01/27/18 13:10 INR 1.55 01/27/18 13:10 APTT 27.9 Seconds (25.1-36.5) 01/27/18 13:10 Assessment and Plan - Assessment and Plan (Free Text) Plan: Pt seen and examined by me. This is a late entry.I have reviewed the note by the biomedical service engineer. The case was discussed and reviewed with the resident. I reviewed the medications and labs. Pt with sepsis and is on IV Abx. He is being followed by ID. He is on Miralax for constipation. D/C planning for him to go home with services. He is on Tegretol for Sz d/o. Eating well. Pain is controlled.
[2018-01-29] MEDS: POLYETHYLENE GLYCOL 3350 17 GM/Dose PACKET PO SCH ×2 (10:05→17:57)
[2018-01-29] MEDS: Meropenem IV 1 gm in NS 50 ML IVPB SCH ×2 (13:06→21:59)
--- NOTE | 2018-01-29 23:23 | PN ---
DATE: 01/29/2018 SUBJECTIVE: Patient is in bed in no acute distress. PHYSICAL EXAMINATION: VITAL SIGNS: Temperature of 98, blood pressure is 130/60, respiratory rate of 18, heart rate of 93. HEENT: Examination of HEENT is unremarkable. NECK: Supple. LUNGS: Have decreased breath sounds. HEART: Normal S1, S2. ABDOMEN: Soft, nontender. LABORATORY EXAMINATION: White count of 16,800, hemoglobin of 10. BUN of 58, creatinine of 1.3. Urinalysis is noted. Influenza is negative. Microbiology reveals gram-negative olimpia in the blood and gram-negative olimpia in the urine. ASSESSMENT AND PLAN: An 87-year-old male with history of prostate cancer, metastasis to the bone, history of Escherichia coli, chronic Bray catheter, Klebsiella urinary tract infection, history of seizures, glaucoma. Admitted with fever and leukocytosis. 1. Severe sepsis with gram-negative olimpia bacteremia secondary to gram-negative olimpia in the urine as the source with acute kidney injury. We will treat with meropenem pending identification of gram-negative olimpia in the blood and urine. Evangelist García MD
--- NOTE | 2018-01-30 06:27 | CP.PCM.DIS ---
Provider - Provider Date of Admission: 01/27/18 15:39 Attending physician: Kenny Bae MD Primary care physician: Glynn Shields MD Hospital Course - Lab Results Lab Results: Micro Results 01/27/18 20:14 Urine,Clean Catch Urine Culture - Preliminary Gram Negative Rodri 01/27/18 13:10 Blood Gram Stain - Final 01/27/18 13:10 Blood Gram Stain - Final Most Recent Lab Values WBC 16.8 10^3/ul (4.5-11.0) H D 01/28/18 06:30 RBC 3.32 10^6/uL (3.5-6.1) L 01/28/18 06:30 Hgb 10.2 g/dL (14.0-18.0) L 01/28/18 06:30 Hct 31.3 % (42.0-52.0) L 01/28/18 06:30 MCV 94.3 fl (80.0-105.0) D 01/28/18 06:30 MCH 30.7 pg (25.0-35.0) 01/28/18 06:30 MCHC 32.6 g/dl (31.0-37.0) 01/28/18 06:30 RDW 14.0 % (11.5-14.5) 01/28/18 06:30 Plt Count 150 10^3/uL (120.0-450.0) 01/28/18 06:30 MPV 10.0 fl (7.0-11.0) 01/28/18 06:30 Gran % 78.4 % (50.0-68.0) H 01/27/18 13:10 Lymph % (Auto) 20.7 % (22.0-35.0) L 01/27/18 13:10 [place] % (Auto) 0.8 % (1.0-6.0) L 01/27/18 13:10 Eos % (Auto) 0.1 % (1.5-5.0) L 01/27/18 13:10 Baso % (Auto) 0.0 % (0.0-3.0) 01/27/18 13:10 Gran # 5.85 (1.4-6.5) 01/27/18 13:10 Lymph # (Auto) 1.6 (1.2-3.4) 01/27/18 13:10 [place] # (Auto) 0.1 (0.1-0.6) 01/27/18 13:10 Eos # (Auto) 0.0 (0.0-0.7) 01/27/18 13:10 Baso # (Auto) 0.00 K/mm3 (0.0-2.0) 01/27/18 13:10 PT 17.8 SECONDS (9.4-12.5) H 01/27/18 13:10 INR 1.55 01/27/18 13:10 APTT 27.9 Seconds (25.1-36.5) 01/27/18 13:10 pO2 158 mm/Hg (30-55) H 01/27/18 13:10 VBG pH 7.52 (7.32-7.43) H 01/27/18 13:10 VBG pCO2 22.0 (40-60) L 01/27/18 13:10 VBG HCO3 18.0 mmol/l (21-28) L 01/27/18 13:10 VBG Total CO2 18.7 mmol.L (22-28) L 01/27/18 13:10 VBG O2 Sat (Calc) 97.3 % (40-65) H 01/27/18 13:10 VBG Base Excess -2.9 mmol/L (0.0-2.0) L 01/27/18 13:10 VBG Potassium 4.7 mmol/L (3.6-5.2) 01/27/18 13:10 Sodium 125.0 mmol/L (132-148) L 01/27/18 13:10 Chloride 96.0 mmol/L (98-107) L 01/27/18 13:10 Glucose 108 mg/dl (75-110) 01/27/18 13:10 Lactate 1.8 mmol/L (0.7-2.1) 01/27/18 13:10 FiO2 21.0 % 01/27/18 13:10 Sodium 134 mmol/L (132-148) 01/28/18 06:30 Potassium 4.3 mmol/L (3.6-5.0) 01/28/18 06:30 Chloride 101 mmol/L (98-107) 01/28/18 06:30 Carbon Dioxide 21 mmol/L (21-33) 01/28/18 06:30 Anion Gap 17 (10-20) 01/28/18 06:30 BUN 58 mg/dL (7-21) H 01/28/18 06:30 Creatinine 1.3 mg/dl (0.8-1.5) 01/28/18 06:30 Est GFR ( Amer) > 60 01/28/18 06:30 Est GFR (Non-Af Amer) 52 01/28/18 06:30 POC Glucose (mg/dL) 104 mg/dL (65-110) 01/27/18 13:01 Random Glucose 69 mg/dL (70-110) L 01/28/18 06:30 Calcium 8.1 mg/dL (8.4-10.5) L 01/28/18 06:30 Phosphorus 6.4 mg/dL (2.5-4.5) H 01/28/18 06:30 Magnesium 2.1 mg/dL (1.7-2.2) 01/28/18 06:30 Total Bilirubin 0.4 mg/dL (0.2-1.3) 01/28/18 06:30 Direct Bilirubin 0.6 mg/dL (0.0-0.4) H 01/27/18 13:10 AST 51 U/L (17-59) 01/28/18 06:30 ALT 21 U/L (7-56) 01/28/18 06:30 Alkaline Phosphatase 98 U/L (38-126) 01/28/18 06:30 Lactate Dehydrogenase 606 U/L (333-699) 01/27/18 13:10 Total Creatine Kinase 109 U/L (35-230) 01/27/18 13:10 Troponin I 0.06 ng/mL D 01/27/18 13:10 NT-Pro-B Natriuret Pep 4640 pg/mL (0-450) H 01/27/18 13:10 Total Protein 6.7 g/dL (5.8-8.3) 01/28/18 06:30 Albumin 3.2 g/dL (3.0-4.8) 01/28/18 06:30 Globulin 3.6 gm/dL 01/28/18 06:30 Albumin/Globulin Ratio 0.9 (1.1-1.8) L 01/28/18 06:30 Lipase 31 U/L (23-300) 01/27/18 13:10 Venous Blood Potassium 4.7 mmol/L (3.6-5.2) 01/27/18 13:10 Urine Color Dark yellow (YELLOW) 01/27/18 13:50 Urine Appearance Sl cloudy (CLEAR) 01/27/18 13:50 Urine pH 8.5 (4.7-8.0) 01/27/18 13:50 Ur Specific [place] 1.015 (1.005-1.035) 01/27/18 13:50 Urine Protein 100 mg/dL (<30 mg/dL) H 01/27/18 13:50 Urine Glucose (UA) Negative mg/dL (NEGATIVE) 01/27/18 13:50 Urine Ketones Negative mg/dL (NEGATIVE) 01/27/18 13:50 Urine Blood Large (NEGATIVE) H 01/27/18 13:50 Urine Nitrate Positive (NEGATIVE) H 01/27/18 13:50 Urine Bilirubin Negative (NEGATIVE) 01/27/18 13:50 Urine Urobilinogen 0.2 E.U./dL (<1 E.U./dL) 01/27/18 13:50 Ur Leukocyte Esterase Large Jus/uL (NEGATIVE) H 01/27/18 13:50 Urine RBC Tntc /hpf (0-2) 01/27/18 13:50 Urine WBC Tntc /hpf (0-6) 01/27/18 13:50 Urine Bacteria Large (NEG) 01/27/18 13:50 Influenza Typ A,B (EIA) Negative for flu a/b (NEGATIVE) 01/27/18 15:30 Discharge Exam - Head Exam Head Exam: ATRAUMATIC, NORMAL INSPECTION, NORMOCEPHALIC Discharge Plan - Follow Up Plan Condition: GUARDED Disposition: HOME/ ROUTINE
[2018-01-30] MEDS: Meropenem IV 1 gm in NS 50 ML IVPB SCH ×2 (10:37→23:11)
[2018-01-30] MEDS: POLYETHYLENE GLYCOL 3350 17 GM/Dose PACKET PO SCH (10:38)
--- NOTE | 2018-01-30 13:38 | CP.PCM.PN ---
<Matilde Casey - Last Filed: 01/30/18 13:42> Subjective - Date & Time of Evaluation Date of Evaluation: 01/30/18 Time of Evaluation: 07:00 - Subjective Subjective: Medicine Progress Note for Lakisha Dan PGY3 Patient seen and examined at bedside. There were no acute overnight events as per nursing staff. Patient is pleasantly confused. He reports some pain in his suprapubic region upon palpation, but denies chest pain, shortness of breath, nausea/vomiting/diarrhea, fever/chills, numbness/tingling. Objective - Vital Signs/Intake and Output Vital Signs (last 24 hours): Temp Pulse Resp BP Pulse Ox 98.7 F 86 20 163/71 H 97 01/30/18 12:00 01/30/18 12:00 01/30/18 12:00 01/30/18 12:00 01/30/18 06:00 Intake and Output: 01/30/18 01/30/18 06:59 18:59 Intake Total 1480 Output Total 1900 Balance -420 - Medications Medications: Current Medications Acetaminophen (Tylenol 325mg Tab) 650 mg PO Q6H PRN PRN Reason: Fever >100.4 F Carbamazepine (Tegretol) 200 mg PO TID [facility]; Protocol Last Admin: 01/30/18 13:28 Dose: 200 mg Fentanyl (Duragesic) 1 patch TD Q72H [facility] Last Admin: 01/29/18 13:06 Dose: 1 patch Meropenem (Merrem Iv 1 Gm Premix) 50 mls @ 100 mls/hr IVPB Q12 [facility]; Protocol Last Admin: 01/30/18 10:37 Dose: 100 mls/hr Polyethylene Glycol (Miralax) 17 gm PO BID [facility]ARA Last Admin: 01/30/18 10:38 Dose: Not Given - Labs Labs: 01/28/18 06:30 01/28/18 06:30 PT 17.8 SECONDS (9.4-12.5) H 01/27/18 13:10 INR 1.55 01/27/18 13:10 APTT 27.9 Seconds (25.1-36.5) 01/27/18 13:10 - Constitutional Appears: No Acute Distress - Head Exam Head Exam: ATRAUMATIC, NORMAL INSPECTION, NORMOCEPHALIC - Eye Exam Eye Exam: Normal appearance, PERRL Pupil Exam: NORMAL ACCOMODATION - ENT Exam ENT Exam: Mucous Membranes Moist - Respiratory Exam Respiratory Exam: Clear to Ausculation Bilateral, NORMAL BREATHING PATTERN. absent: Rales, Rhonchi, Wheezes - Cardiovascular Exam Cardiovascular Exam: REGULAR RHYTHM, +S1, +S2. absent: Gallop, Rubs, Murmur - GI/Abdominal Exam GI & Abdominal Exam: Soft, Tenderness (suprapubic ), Normal Bowel Sounds. absent: Rigid, Mass, Rebound - Extremities Exam Extremities Exam: Normal Inspection. absent: Calf Tenderness, Pedal Edema - Neurological Exam Neurological Exam: Alert, Awake, CN II-XII Intact - Psychiatric Exam Psychiatric exam: Normal Affect, Normal Mood - Skin Skin Exam: Dry, Warm Assessment and Plan - Assessment and Plan (Free Text) Assessment: 1. Sepsis - secondary to UTI and bacteremia - blood cultures + for proteus - Urine culture + for Citrobacter 2. Seizures 3. Metastatic prostate ca - currently not on treatment 4. Constipation - resolved Plan: Labs and imaging reviewed. Patient had CT A/P which showed possible focal pancreatitis, but lipase as negative and patient does not have upper abdominal pain on exam. ID is following and patient is on Merrem. Repeat blood cultures se nt. Pain is controlled with fentanyl patch. He is on Miralax once daily. Will continue Tegetrol for seizures. I spoke with son today to give him an update on the plan. Case seen, discussed and reviewed with Dr. Bae. Lakisha Casey PGY3 <Kenny Bae S - Last Filed: 02/02/18 14:58> Objective - Vital Signs/Intake and Output Vital Signs (last 24 hours): Temp Pulse Resp BP Pulse Ox 98.2 F 78 20 130/68 97 02/02/18 08:44 02/02/18 08:44 02/02/18 08:44 02/02/18 08:44 02/02/18 10:15 Intake and Output: 02/02/18 02/02/18 06:59 18:59 Output Total 500 Balance -500 - Medications Medications: Current Medications Acetaminophen (Tylenol 325mg Tab) 650 mg PO Q6H PRN PRN Reason: Fever >100.4 F Carbamazepine (Tegretol) 200 mg PO TID [facility]; Protocol Last Admin: 02/02/18 13:17 Dose: 200 mg Fentanyl (Duragesic) 1 patch TD Q72H [facility]ARA Last Admin: 02/01/18 15:47 Dose: 1 patch Meropenem (Merrem Iv 1 Gm Premix) 50 mls @ 100 mls/hr IVPB Q12 [facility]; Protocol Last Admin: 02/02/18 09:48 Dose: 100 mls/hr Polyethylene Glycol (Miralax) 17 gm PO DAILY [facility]ARA Last Admin: 02/02/18 09:49 Dose: 17 gm - Labs Labs: 02/02/18 06:30 02/02/18 06:30 PT 17.8 SECONDS (9.4-12.5) H 01/27/18 13:10 INR 1.55 01/27/18 13:10 APTT 27.9 Seconds (25.1-36.5) 01/27/18 13:10 Assessment and Plan - Assessment and Plan (Free Text) Plan: Pt seen and examined by me. I have reviewed the note by the medical supply technician. The case was discussed and reviewed with the resident. I reviewed the medications and labs. Pt with sepsis. CT of ab/pelvis was reviewed. ID is following pt. Continue with Miralax for constipation. He is on a Fentanyl patch for pain. He is DNR.
--- NOTE | 2018-01-31 03:11 | PN ---
DATE: 01/30/2018 SUBJECTIVE: Patient is in bed in no acute distress, nontoxic. No fevers and chills. PHYSICAL EXAMINATION: VITAL SIGNS: Temperature is 97, blood pressure is 160/70, respiratory rate of 18. HEENT: Unremarkable. NECK: Supple. LUNGS: Have decreased breath sounds. HEART: Normal S1, S2. ABDOMEN: Soft. LABORATORY EXAMINATION: Reveals the urine has Proteus mirabilis sensitive to Cipro, sensitive to ertapenem, sensitive to meropenem and Zosyn. The urine culture has Citrobacter and sensitivity is noted. ASSESSMENT AND PLAN: An 87-year-old male with a history of prostate cancer with metastasis to the bone with a history of Escherichia coli urinary tract infection, Klebsiella urinary tract infection, admitted with severe sepsis with Proteus mirabilis bacteremia, however, the urine culture is growing Citrobacter in the urine and the patient with acute kidney injury, on meropenem. We will check on the sensitivity, CAT scan of the abdomen and pelvis. Concerned about GI source, not evident as far as biliary tree is concerned. We will follow with you. Evangelist García MD
[2018-01-31] MEDS: Meropenem IV 1 gm in NS 50 ML IVPB SCH ×2 (10:44→22:25)
[2018-01-31] MEDS: POLYETHYLENE GLYCOL 3350 17 GM/Dose PACKET PO SCH (10:45)
--- NOTE | 2018-01-31 11:13 | CP.PCM.PN ---
<Matilde Casey - Last Filed: 01/31/18 11:10> Subjective - Date & Time of Evaluation Date of Evaluation: 01/31/18 Time of Evaluation: 07:00 - Subjective Subjective: Medicine Progress Note for Lakisha Dan PGY3 Patient seen and examined at bedside. There were no acute overnight events as per nursing staff. He is a little confused this AM. He reports some pain in his RLQ of his abdomen that does not radiate. Patient denies chest pain, shortness of breath, nausea/vomiting/diarrhea, fever/chills, numbness/tingling. Objective - Vital Signs/Intake and Output Vital Signs (last 24 hours): Temp Pulse Resp BP Pulse Ox 98 F 91 H 18 159/74 H 94 L 01/31/18 08:30 01/31/18 08:30 01/31/18 08:30 01/31/18 08:30 01/31/18 08:30 Intake and Output: 01/31/18 01/31/18 06:59 18:59 Intake Total 640 Output Total 1000 Balance -360 - Medications Medications: Current Medications Acetaminophen (Tylenol 325mg Tab) 650 mg PO Q6H PRN PRN Reason: Fever >100.4 F Carbamazepine (Tegretol) 200 mg PO TID [facility]; Protocol Last Admin: 01/31/18 10:45 Dose: 200 mg Fentanyl (Duragesic) 1 patch TD Q72H [facility] Last Admin: 01/29/18 13:06 Dose: 1 patch Meropenem (Merrem Iv 1 Gm Premix) 50 mls @ 100 mls/hr IVPB Q12 [facility]; Protocol Last Admin: 01/31/18 10:44 Dose: 100 mls/hr Polyethylene Glycol (Miralax) 17 gm PO DAILY [facility] Last Admin: 01/31/18 10:45 Dose: 17 gm - Labs Labs: 01/28/18 06:30 01/28/18 06:30 PT 17.8 SECONDS (9.4-12.5) H 01/27/18 13:10 INR 1.55 01/27/18 13:10 APTT 27.9 Seconds (25.1-36.5) 01/27/18 13:10 - Constitutional Appears: No Acute Distress - Head Exam Head Exam: ATRAUMATIC, NORMAL INSPECTION, NORMOCEPHALIC - Eye Exam Eye Exam: Normal appearance, PERRL Pupil Exam: NORMAL ACCOMODATION, PERRL - ENT Exam ENT Exam: Mucous Membranes Moist - Respiratory Exam Respiratory Exam: Clear to Ausculation Bilateral, NORMAL BREATHING PATTERN. absent: Rales, Rhonchi, Wheezes - Cardiovascular Exam Cardiovascular Exam: REGULAR RHYTHM, +S1, +S2. absent: Gallop, Rubs, Murmur - GI/Abdominal Exam GI & Abdominal Exam: Soft, Tenderness (RLQ and suprapubic ), Normal Bowel Sounds. absent: Rigid, Mass, Rebound - Extremities Exam Extremities Exam: Normal Inspection. absent: Calf Tenderness, Pedal Edema - Neurological Exam Neurological Exam: Alert, Awake, CN II-XII Intact, Oriented x3 - Psychiatric Exam Psychiatric exam: Normal Affect, Normal Mood - Skin Skin Exam: Dry, Warm Assessment and Plan - Assessment and Plan (Free Text) Assessment: 1. Sepsis - secondary to UTI and bacteremia - blood cultures + for proteus - Urine culture + for Citrobacter 2. Seizures 3. Metastatic prostate ca - currently not on treatment Plan: Labs and imaging reviewed. Repeat blood cultures pending. Pain is controlled and patient on stool softener. He is tolerating diet. Patient is on Tegetrol for seizures. ID is on consult and patient is on Merrem for the infection. I spoke with son today. Case seen, discussed and reviewed with Dr. Bae. Lakisha Casey PGY3 <Kenny Bae S - Last Filed: 02/02/18 14:56> Objective - Vital Signs/Intake and Output Vital Signs (last 24 hours): Temp Pulse Resp BP Pulse Ox 98.2 F 78 20 130/68 97 02/02/18 08:44 02/02/18 08:44 02/02/18 08:44 02/02/18 08:44 02/02/18 10:15 Intake and Output: 02/02/18 02/02/18 06:59 18:59 Output Total 500 Balance -500 - Medications Medications: Current Medications Acetaminophen (Tylenol 325mg Tab) 650 mg PO Q6H PRN PRN Reason: Fever >100.4 F Carbamazepine (Tegretol) 200 mg PO TID [facility]; Protocol Last Admin: 02/02/18 13:17 Dose: 200 mg Fentanyl (Duragesic) 1 patch TD Q72H TARA Last Admin: 02/01/18 15:47 Dose: 1 patch Meropenem (Merrem Iv 1 Gm Premix) 50 mls @ 100 mls/hr IVPB Q12 [facility]; Protocol Last Admin: 02/02/18 09:48 Dose: 100 mls/hr Polyethylene Glycol (Miralax) 17 gm PO DAILY [facility] Last Admin: 02/02/18 09:49 Dose: 17 gm - Labs Labs: 02/02/18 06:30 02/02/18 06:30 PT 17.8 SECONDS (9.4-12.5) H 01/27/18 13:10 INR 1.55 01/27/18 13:10 APTT 27.9 Seconds (25.1-36.5) 01/27/18 13:10 Assessment and Plan - Assessment and Plan (Free Text) Plan: Pt seen and examined by me. I have reviewed the note by the biomedical equipment specialist. The case was discussed and reviewed with the resident. I reviewed the medications and labs. Pt with sepsis and on Abx. His pain is controlled. He is eating well. He will continue with Carbamazpene for Sz d/o. Family has been updated. He is DNR.
--- NOTE | 2018-01-31 16:52 | CP.PCM.PN ---
Subjective - Date & Time of Evaluation Date of Evaluation: 01/31/18 Time of Evaluation: 09:50 - Subjective Subjective: Comfortable in bed, no abdominal pain, no nausea or vomiting, no fevers. Objective - Vital Signs/Intake and Output Vital Signs (last 24 hours): Temp Pulse Resp BP Pulse Ox 97.7 F 94 H 18 123/53 L 96 01/31/18 14:00 01/31/18 14:00 01/31/18 14:00 01/31/18 14:00 01/31/18 14:00 Intake and Output: 01/31/18 01/31/18 06:59 18:59 Intake Total 640 Output Total 1000 750 Balance -360 -750 - Medications Medications: Current Medications Acetaminophen (Tylenol 325mg Tab) 650 mg PO Q6H PRN PRN Reason: Fever >100.4 F Carbamazepine (Tegretol) 200 mg PO TID [facility]; Protocol Last Admin: 01/31/18 14:12 Dose: 200 mg Fentanyl (Duragesic) 1 patch TD Q72H [facility]ARA Last Admin: 01/29/18 13:06 Dose: 1 patch Meropenem (Merrem Iv 1 Gm Premix) 50 mls @ 100 mls/hr IVPB Q12 [facility]; Protocol Last Admin: 01/31/18 10:44 Dose: 100 mls/hr Polyethylene Glycol (Miralax) 17 gm PO DAILY [facility] Last Admin: 01/31/18 10:45 Dose: 17 gm - Labs Labs: 01/28/18 06:30 01/28/18 06:30 PT 17.8 SECONDS (9.4-12.5) H 01/27/18 13:10 INR 1.55 01/27/18 13:10 APTT 27.9 Seconds (25.1-36.5) 01/27/18 13:10 - Constitutional Appears: Chronically Ill - Head Exam Head Exam: NORMAL INSPECTION - Neck Exam Neck Exam: absent: Meningismus - Respiratory Exam Respiratory Exam: Decreased Breath Sounds - Cardiovascular Exam Cardiovascular Exam: +S1, +S2 - GI/Abdominal Exam GI & Abdominal Exam: Soft. absent: Tenderness Assessment and Plan - Assessment and Plan (Free Text) Plan: Assessment Proteus bacteremia, source unclear, concerned about intra-abdominal infection history of UTI in this patient with prostate cancer with metastasis history of Klebsiella urinary tract infection Mechanical fall, etiology to be determined prostate cancer on Lupron treatment once a month (hormonal treatment) seizure disorder glaucoma Plan continue Merrem and follow up blood cx
[2018-02-01] MEDS: Meropenem IV 1 gm in NS 50 ML IVPB SCH ×2 (09:27→22:07)
[2018-02-01] MEDS: POLYETHYLENE GLYCOL 3350 17 GM/Dose PACKET PO SCH (09:28)
--- NOTE | 2018-02-01 12:57 | CP.PCM.PN ---
<Matilde Casey - Last Filed: 02/01/18 12:53> Subjective - Date & Time of Evaluation Date of Evaluation: 02/01/18 Time of Evaluation: 07:00 - Subjective Subjective: Medicine Progress Note for Lakisha Dan PGY3 Patient seen and examined at bedside. There were no acute overnight events as per nursing staff. Patient is resting comfortably in bed. He states he feels well and would like to go home. He denies abdominal pain, chest pain, shortness of breath, nausea/vomiting/diarrhea, fever/chills, numbness/tingling or any pain. Objective - Vital Signs/Intake and Output Vital Signs (last 24 hours): Temp Pulse Resp BP Pulse Ox 98 F 93 H 18 136/66 97 02/01/18 08:22 02/01/18 08:22 02/01/18 08:22 02/01/18 08:22 02/01/18 11:13 Intake and Output: 02/01/18 02/01/18 06:59 18:59 Intake Total 180 Balance 180 - Medications Medications: Current Medications Acetaminophen (Tylenol 325mg Tab) 650 mg PO Q6H PRN PRN Reason: Fever >100.4 F Carbamazepine (Tegretol) 200 mg PO TID [facility]; Protocol Last Admin: 02/01/18 09:28 Dose: 200 mg Fentanyl (Duragesic) 1 patch TD Q72H TARA Last Admin: 01/29/18 13:06 Dose: 1 patch Meropenem (Merrem Iv 1 Gm Premix) 50 mls @ 100 mls/hr IVPB Q12 [facility]; Protocol Last Admin: 02/01/18 09:27 Dose: 100 mls/hr Polyethylene Glycol (Miralax) 17 gm PO DAILY TARA Last Admin: 02/01/18 09:28 Dose: 17 gm - Labs Labs: 01/28/18 06:30 01/28/18 06:30 PT 17.8 SECONDS (9.4-12.5) H 01/27/18 13:10 INR 1.55 01/27/18 13:10 APTT 27.9 Seconds (25.1-36.5) 01/27/18 13:10 - Constitutional Appears: No Acute Distress - Head Exam Head Exam: ATRAUMATIC, NORMAL INSPECTION, NORMOCEPHALIC - Eye Exam Eye Exam: Normal appearance, PERRL Pupil Exam: NORMAL ACCOMODATION, PERRL - ENT Exam ENT Exam: Mucous Membranes Moist - Respiratory Exam Respiratory Exam: Clear to Ausculation Bilateral, NORMAL BREATHING PATTERN. absent: Rales, Rhonchi, Wheezes - Cardiovascular Exam Cardiovascular Exam: REGULAR RHYTHM, +S1, +S2. absent: Gallop, Rubs, Murmur - GI/Abdominal Exam GI & Abdominal Exam: Soft, Tenderness (suprapubic ), Normal Bowel Sounds. absent: Rigid, Mass, Rebound - Extremities Exam Extremities Exam: Normal Capillary Refill, Normal Inspection. absent: Calf Tenderness, Pedal Edema - Neurological Exam Neurological Exam: Alert, Awake, CN II-XII Intact. absent: Oriented x3 - Skin Skin Exam: Dry, Intact, Warm Assessment and Plan - Assessment and Plan (Free Text) Assessment: 1. Sepsis - secondary to UTI and bacteremia - blood cultures + for proteus - Urine culture + for Citrobacter - repeat blood cultures negative thus far 2. Seizures 3. Metastatic prostate ca - currently not on treatment Plan: Labs and imaging reviewed. Repeat blood cultures negative thus far. Patient on Merrem. Will speak to ID regarding recommendations for antibiotics for d/c. Pain is controlled and patient is tolerating diet. Continue Tegetrol for seizures. I spoke with son today regarding discharge plan. Case seen, discussed and reviewed with Dr. Bae. Lakisha Casey PGY3 <Kenny Bae S - Last Filed: 02/01/18 14:25> Objective - Vital Signs/Intake and Output Vital Signs (last 24 hours): Temp Pulse Resp BP Pulse Ox 98 F 93 H 18 136/66 97 02/01/18 08:22 02/01/18 08:22 02/01/18 08:22 02/01/18 08:22 02/01/18 11:13 Intake and Output: 02/01/18 02/01/18 06:59 18:59 Intake Total 180 Balance 180 - Medications Medications: Current Medications Acetaminophen (Tylenol 325mg Tab) 650 mg PO Q6H PRN PRN Reason: Fever >100.4 F Carbamazepine (Tegretol) 200 mg PO TID [facility]; Protocol Last Admin: 02/01/18 09:28 Dose: 200 mg Fentanyl (Duragesic) 1 patch TD Q72H [facility] Last Admin: 01/29/18 13:06 Dose: 1 patch Meropenem (Merrem Iv 1 Gm Premix) 50 mls @ 100 mls/hr IVPB Q12 [facility]; Protocol Last Admin: 02/01/18 09:27 Dose: 100 mls/hr Polyethylene Glycol (Miralax) 17 gm PO DAILY [facility]ARA Last Admin: 02/01/18 09:28 Dose: 17 gm - Labs Labs: 01/28/18 06:30 01/28/18 06:30 PT 17.8 SECONDS (9.4-12.5) H 01/27/18 13:10 INR 1.55 01/27/18 13:10 APTT 27.9 Seconds (25.1-36.5) 01/27/18 13:10 Assessment and Plan - Assessment and Plan (Free Text) Plan: Pt seen and examined by me. I have reviewed the note by the certified medical aide. The case was discussed and reviewed with the resident. I reviewed the medications and labs. PT is on Abx. ID following pt. Tolerating diet. Tegetrol for Sz. Plan to D/C home. Pt is awake and alert. Delerium has improved. The pt has Prostate Ca but is stable at this point. No active intervention is needed.
--- NOTE | 2018-02-01 16:34 | CP.PCM.PN ---
Subjective - Date & Time of Evaluation Date of Evaluation: 02/01/18 Time of Evaluation: 14:35 - Subjective Subjective: No fevers, comfortable. Objective - Vital Signs/Intake and Output Vital Signs (last 24 hours): Temp Pulse Resp BP Pulse Ox 98 F 93 H 18 136/66 97 02/01/18 08:22 02/01/18 08:22 02/01/18 08:22 02/01/18 08:22 02/01/18 11:13 Intake and Output: 02/01/18 02/01/18 06:59 18:59 Intake Total 180 600 Output Total 400 Balance 180 200 - Medications Medications: Current Medications Acetaminophen (Tylenol 325mg Tab) 650 mg PO Q6H PRN PRN Reason: Fever >100.4 F Carbamazepine (Tegretol) 200 mg PO TID [facility]; Protocol Last Admin: 02/01/18 15:46 Dose: 200 mg Fentanyl (Duragesic) 1 patch TD Q72H [facility]ARA Last Admin: 02/01/18 15:47 Dose: 1 patch Meropenem (Merrem Iv 1 Gm Premix) 50 mls @ 100 mls/hr IVPB Q12 [facility]; Protocol Last Admin: 02/01/18 09:27 Dose: 100 mls/hr Polyethylene Glycol (Miralax) 17 gm PO DAILY [facility]ARA Last Admin: 02/01/18 09:28 Dose: 17 gm - Labs Labs: 01/28/18 06:30 01/28/18 06:30 PT 17.8 SECONDS (9.4-12.5) H 01/27/18 13:10 INR 1.55 01/27/18 13:10 APTT 27.9 Seconds (25.1-36.5) 01/27/18 13:10 - Constitutional Appears: Non-toxic, Chronically Ill - Head Exam Head Exam: NORMAL INSPECTION - Respiratory Exam Respiratory Exam: Decreased Breath Sounds - Cardiovascular Exam Cardiovascular Exam: +S1, +S2 - GI/Abdominal Exam GI & Abdominal Exam: Soft. absent: Tenderness Assessment and Plan - Assessment and Plan (Free Text) Plan: Assessment Proteus bacteremia, source unclear, concerned about intra-abdominal infection history of UTI in this patient with prostate cancer with metastasis history of Klebsiella urinary tract infection Mechanical fall, etiology to be determined prostate cancer on Lupron treatment once a month (hormonal treatment) seizure disorder glaucoma Plan continue Merrem day 5 to complete 14 days of therapy and follow up repeat blood cx
--- NOTE | 2018-02-02 06:42 | CP.PCM.PN ---
<Matilde Casey - Last Filed: 02/02/18 09:28> Subjective - Date & Time of Evaluation Date of Evaluation: 02/02/18 Time of Evaluation: 07:00 - Subjective Subjective: Medicine Progress Note for Lakisha Dan PGY3 Patient seen and examined at bedside. I spoke with nursing staff and they did not report any acute overnight events. Patient reports feeling well this morning. He denies chest pain, shortness of breath, abdominal pain, nausea/vomiting/diarrhea, fever/chills, numbness/tingling. Objective - Vital Signs/Intake and Output Vital Signs (last 24 hours): Temp Pulse Resp BP Pulse Ox 98.5 F 83 18 135/60 96 02/01/18 22:00 02/01/18 22:00 02/01/18 22:00 02/01/18 22:00 02/01/18 22:00 Intake and Output: 02/01/18 02/02/18 18:59 06:59 Intake Total 600 Output Total 400 500 Balance 200 -500 - Medications Medications: Current Medications Acetaminophen (Tylenol 325mg Tab) 650 mg PO Q6H PRN PRN Reason: Fever >100.4 F Carbamazepine (Tegretol) 200 mg PO TID [facility]; Protocol Last Admin: 02/01/18 17:41 Dose: Not Given Fentanyl (Duragesic) 1 patch TD Q72H [facility] Last Admin: 02/01/18 15:47 Dose: 1 patch Meropenem (Merrem Iv 1 Gm Premix) 50 mls @ 100 mls/hr IVPB Q12 [facility]; Protocol Last Admin: 02/01/18 22:07 Dose: 100 mls/hr Polyethylene Glycol (Miralax) 17 gm PO DAILY [facility] Last Admin: 02/01/18 09:28 Dose: 17 gm - Labs Labs: 01/28/18 06:30 01/28/18 06:30 PT 17.8 SECONDS (9.4-12.5) H 01/27/18 13:10 INR 1.55 01/27/18 13:10 APTT 27.9 Seconds (25.1-36.5) 01/27/18 13:10 - Constitutional Appears: No Acute Distress - Head Exam Head Exam: ATRAUMATIC, NORMAL INSPECTION, NORMOCEPHALIC - Eye Exam Eye Exam: Normal appearance, PERRL Pupil Exam: NORMAL ACCOMODATION - ENT Exam ENT Exam: Mucous Membranes Moist - Respiratory Exam Respiratory Exam: Clear to Ausculation Bilateral, NORMAL BREATHING PATTERN. absent: Rales, Rhonchi, Wheezes - Cardiovascular Exam Cardiovascular Exam: REGULAR RHYTHM, +S1, +S2. absent: Gallop, Rubs, Murmur - GI/Abdominal Exam GI & Abdominal Exam: Soft, Tenderness (suprapubic ), Normal Bowel Sounds. absent: Rigid, Mass, Rebound - Extremities Exam Extremities Exam: Normal Capillary Refill, Normal Inspection. absent: Calf Tenderness, Pedal Edema - Neurological Exam Neurological Exam: Alert, Awake, CN II-XII Intact - Psychiatric Exam Psychiatric exam: Normal Affect, Normal Mood - Skin Skin Exam: Dry, Intact, Normal Color, Warm Assessment and Plan - Assessment and Plan (Free Text) Assessment: 1. Sepsis - improved - secondary to UTI and bacteremia - blood cultures + for proteus - Urine culture + for Citrobacter - repeat blood cultures negative thus far 2. Transaminitis - can be secondary to antibiotics 3. Seizures 4. Metastatic prostate ca - currently not on treatment Plan: Labs and imaging reviewed. Patient is on IV Merrem. I spoke with Dr. Richmond who recommends patient to complete 14days of antibiotics. This is day #6. Patient can be d/c home with Ertapenem tomorrow once PICC line is established. Patient has transaminitis. Will monitor. Pain is controlled and he is tolerating diet. Continue Carbamazipine for seizures. Spoke with son today about the plan. Case seen, discussed and reviewed with Dr. Bae. Lakisha Casey PGY3 <Kenny Bae S - Last Filed: 02/02/18 14:55> Objective - Vital Signs/Intake and Output Vital Signs (last 24 hours): Temp Pulse Resp BP Pulse Ox 98.2 F 78 20 130/68 97 02/02/18 08:44 02/02/18 08:44 02/02/18 08:44 02/02/18 08:44 02/02/18 10:15 Intake and Output: 02/02/18 02/02/18 06:59 18:59 Output Total 500 Balance -500 - Medications Medications: Current Medications Acetaminophen (Tylenol 325mg Tab) 650 mg PO Q6H PRN PRN Reason: Fever >100.4 F Carbamazepine (Tegretol) 200 mg PO TID [facility]; Protocol Last Admin: 02/02/18 13:17 Dose: 200 mg Fentanyl (Duragesic) 1 patch TD Q72H [facility] Last Admin: 02/01/18 15:47 Dose: 1 patch Meropenem (Merrem Iv 1 Gm Premix) 50 mls @ 100 mls/hr IVPB Q12 [facility]; Protocol Last Admin: 02/02/18 09:48 Dose: 100 mls/hr Polyethylene Glycol (Miralax) 17 gm PO DAILY [facility] Last Admin: 02/02/18 09:49 Dose: 17 gm - Labs Labs: 02/02/18 06:30 02/02/18 06:30 PT 17.8 SECONDS (9.4-12.5) H 01/27/18 13:10 INR 1.55 01/27/18 13:10 APTT 27.9 Seconds (25.1-36.5) 01/27/18 13:10 Assessment and Plan - Assessment and Plan (Free Text) Assessment: Pt seen and examined by me. I have reviewed the note by the neuropsychology medical consultant. The case was discussed and reviewed with the resident. I reviewed the medications and labs. Pt with sepsis. He is on IV Abx. He has elevated LFTs. Will follow. Pain is controlled. He is DNR. He is going to go home once cleared. He is eating well and denies any pain.
[2018-02-02 07:26] LABS: HEMOGLOBIN 10.4 g/dL (14.0-18.0); MEAN CELL VOLUME 95.3 fl (80.0-105.0); MEAN CORPUSCULAR HEMOGLOBIN 30.4 pg (25.0-35.0); MEAN CORPUSCULAR HGB CONC 31.9 g/dl (31.0-37.0); MEAN PLATELET VOLUME 9.4 fl (7.0-11.0); RBC 3.42 10^6/uL (3.5-6.1); RED CELL DISTRIBUTION WIDTH 13.7 % (11.5-14.5); WHITE BLOOD COUNT 7.6 10^3/ul (4.5-11.0)
[2018-02-02 07:53] LABS: BLOOD UREA NITROGEN 26 mg/dL (7-21); GFR NON-AFRICAN AMERICAN > 60
[2018-02-02 07:54] LABS: ALB/GLOB RATIO 0.9 (1.1-1.8); ALBUMIN 3.1 g/dL (3.0-4.8); ALT/SGPT 155 U/L (7-56); AST/SGOT 145 U/L (17-59); CALCIUM 8.6 mg/dL (8.4-10.5)
[2018-02-02] MEDS: Meropenem IV 1 gm in NS 50 ML IVPB SCH (09:48)
[2018-02-02] MEDS: POLYETHYLENE GLYCOL 3350 17 GM/Dose PACKET PO SCH (09:49)
--- NOTE | 2018-02-02 15:53 | CP.PCM.PN ---
Subjective - Date & Time of Evaluation Date of Evaluation: 02/02/18 Time of Evaluation: 12:25 - Subjective Subjective: Comfortable, no fevers, no abdominal pain, no nausea. Objective - Vital Signs/Intake and Output Vital Signs (last 24 hours): Temp Pulse Resp BP Pulse Ox 98.2 F 78 20 130/68 97 02/02/18 08:44 02/02/18 08:44 02/02/18 08:44 02/02/18 08:44 02/02/18 08:44 Intake and Output: 02/02/18 02/02/18 06:59 18:59 Output Total 500 Balance -500 - Medications Medications: Current Medications Acetaminophen (Tylenol 325mg Tab) 650 mg PO Q6H PRN PRN Reason: Fever >100.4 F Carbamazepine (Tegretol) 200 mg PO TID TARA; Protocol Last Admin: 02/01/18 17:41 Dose: Not Given Fentanyl (Duragesic) 1 patch TD Q72H TARA Last Admin: 02/01/18 15:47 Dose: 1 patch Meropenem (Merrem Iv 1 Gm Premix) 50 mls @ 100 mls/hr IVPB Q12 TARA; Protocol Last Admin: 02/01/18 22:07 Dose: 100 mls/hr Polyethylene Glycol (Miralax) 17 gm PO DAILY TARA Last Admin: 02/01/18 09:28 Dose: 17 gm - Labs Labs: 02/02/18 06:30 02/02/18 06:30 PT 17.8 SECONDS (9.4-12.5) H 01/27/18 13:10 INR 1.55 01/27/18 13:10 APTT 27.9 Seconds (25.1-36.5) 01/27/18 13:10 - Constitutional Appears: No Acute Distress, Chronically Ill - Head Exam Head Exam: NORMAL INSPECTION - Respiratory Exam Respiratory Exam: Decreased Breath Sounds - Cardiovascular Exam Cardiovascular Exam: +S1, +S2 - GI/Abdominal Exam GI & Abdominal Exam: Soft. absent: Tenderness Assessment and Plan - Assessment and Plan (Free Text) Plan: Assessment Proteus bacteremia, source unclear, concerned about intra-abdominal infection history of UTI in this patient with prostate cancer with metastasis history of Klebsiella urinary tract infection Mechanical fall, etiology to be determined prostate cancer on Lupron treatment once a month (hormonal treatment) seizure disorder glaucoma Plan continue Merrem day 6 to complete 14 days of therapy and follow up repeat blood cx AST, ALT elevated - will get abdominal ultrasound
[2018-02-02] MEDS: Meropenem IV 1 gm in NS 1 GM/50 ML BAG IVPB SCH (22:36)
[2018-02-03] MEDS ORDERED: Simethicone 80 mg Chewtab PO STA (02:23)
[2018-02-03] MEDS: Meropenem IV 1 gm in NS 1 GM/50 ML BAG IVPB SCH ×3 (05:51→21:21)
[2018-02-03 08:10] LABS: ALBUMIN 3.2 g/dL (3.0-4.8); BLOOD UREA NITROGEN 23 mg/dL (7-21); CALCIUM 8.4 mg/dL (8.4-10.5); GFR NON-AFRICAN AMERICAN > 60
[2018-02-03 08:11] LABS: ALB/GLOB RATIO 0.9 (1.1-1.8); ALT/SGPT 167 U/L (7-56); AST/SGOT 156 U/L (17-59)
[2018-02-03] MEDS: POLYETHYLENE GLYCOL 3350 17 GM/Dose PACKET PO SCH (10:07)
--- NOTE | 2018-02-03 10:54 | CP.PCM.DIS ---
<Matilde Casey - Last Filed: 02/03/18 13:22> Provider - Provider Date of Admission: 01/27/18 15:39 Attending physician: Kenny Bae MD Primary care physician: Glynn Shields MD Consults: ID: Ricky Time Spent in preparation of Discharge (in minutes): 35 Hospital Course - Lab Results Lab Results: Micro Results 01/30/18 18:27 Blood Blood Culture - Preliminary NO GROWTH AFTER 3 DAYS 01/30/18 18:27 Blood Blood Culture - Preliminary NO GROWTH AFTER 3 DAYS 01/27/18 13:10 Blood Blood Culture - Final Proteus Mirabilis 01/27/18 13:10 Blood Gram Stain - Final 01/27/18 13:10 Blood Blood Culture - Final Proteus Mirabilis 01/27/18 13:10 Blood Gram Stain - Final 01/27/18 20:14 Urine,Clean Catch Urine Culture - Final Citrobacter Diversus Most Recent Lab Values WBC 7.6 10^3/ul (4.5-11.0) D 02/02/18 06:30 RBC 3.42 10^6/uL (3.5-6.1) L 02/02/18 06:30 Hgb 10.4 g/dL (14.0-18.0) L 02/02/18 06:30 Hct 32.6 % (42.0-52.0) L 02/02/18 06:30 MCV 95.3 fl (80.0-105.0) 02/02/18 06:30 MCH 30.4 pg (25.0-35.0) 02/02/18 06:30 MCHC 31.9 g/dl (31.0-37.0) 02/02/18 06:30 RDW 13.7 % (11.5-14.5) 02/02/18 06:30 Plt Count 196 10^3/uL (120.0-450.0) 02/02/18 06:30 MPV 9.4 fl (7.0-11.0) 02/02/18 06:30 Gran % 78.4 % (50.0-68.0) H 01/27/18 13:10 Lymph % (Auto) 20.7 % (22.0-35.0) L 01/27/18 13:10 [place] % (Auto) 0.8 % (1.0-6.0) L 01/27/18 13:10 Eos % (Auto) 0.1 % (1.5-5.0) L 01/27/18 13:10 Baso % (Auto) 0.0 % (0.0-3.0) 01/27/18 13:10 Gran # 5.85 (1.4-6.5) 01/27/18 13:10 Lymph # (Auto) 1.6 (1.2-3.4) 01/27/18 13:10 [place] # (Auto) 0.1 (0.1-0.6) 01/27/18 13:10 Eos # (Auto) 0.0 (0.0-0.7) 01/27/18 13:10 Baso # (Auto) 0.00 K/mm3 (0.0-2.0) 01/27/18 13:10 PT 17.8 SECONDS (9.4-12.5) H 01/27/18 13:10 INR 1.55 01/27/18 13:10 APTT 27.9 Seconds (25.1-36.5) 01/27/18 13:10 pO2 158 mm/Hg (30-55) H 01/27/18 13:10 VBG pH 7.52 (7.32-7.43) H 01/27/18 13:10 VBG pCO2 22.0 (40-60) L 01/27/18 13:10 VBG HCO3 18.0 mmol/l (21-28) L 01/27/18 13:10 VBG Total CO2 18.7 mmol.L (22-28) L 01/27/18 13:10 VBG O2 Sat (Calc) 97.3 % (40-65) H 01/27/18 13:10 VBG Base Excess -2.9 mmol/L (0.0-2.0) L 01/27/18 13:10 VBG Potassium 4.7 mmol/L (3.6-5.2) 01/27/18 13:10 Sodium 125.0 mmol/L (132-148) L 01/27/18 13:10 Chloride 96.0 mmol/L (98-107) L 01/27/18 13:10 Glucose 108 mg/dl (75-110) 01/27/18 13:10 Lactate 1.8 mmol/L (0.7-2.1) 01/27/18 13:10 FiO2 21.0 % 01/27/18 13:10 Sodium 139 mmol/L (132-148) 02/03/18 07:30 Potassium 4.0 mmol/L (3.6-5.0) 02/03/18 07:30 Chloride 106 mmol/L (98-107) 02/03/18 07:30 Carbon Dioxide 26 mmol/L (21-33) 02/03/18 07:30 Anion Gap 11 (10-20) 02/03/18 07:30 BUN 23 mg/dL (7-21) H 02/03/18 07:30 Creatinine 0.5 mg/dl (0.8-1.5) L 02/03/18 07:30 Est GFR ( Amer) > 60 02/03/18 07:30 Est GFR (Non-Af Amer) > 60 02/03/18 07:30 POC Glucose (mg/dL) 104 mg/dL (65-110) 01/27/18 13:01 Random Glucose 87 mg/dL (70-110) 02/03/18 07:30 Calcium 8.4 mg/dL (8.4-10.5) 02/03/18 07:30 Phosphorus 6.4 mg/dL (2.5-4.5) H 01/28/18 06:30 Magnesium 2.1 mg/dL (1.7-2.2) 01/28/18 06:30 Total Bilirubin 0.3 mg/dL (0.2-1.3) 02/03/18 07:30 Direct Bilirubin 0.6 mg/dL (0.0-0.4) H 01/27/18 13:10 AST 156 U/L (17-59) H 02/03/18 07:30 ALT 167 U/L (7-56) H 02/03/18 07:30 Alkaline Phosphatase 138 U/L (38-126) H 02/03/18 07:30 Lactate Dehydrogenase 606 U/L (333-699) 01/27/18 13:10 Total Creatine Kinase 109 U/L (35-230) 01/27/18 13:10 Troponin I 0.06 ng/mL D 01/27/18 13:10 NT-Pro-B Natriuret Pep 4640 pg/mL (0-450) H 01/27/18 13:10 Total Protein 6.9 g/dL (5.8-8.3) 02/03/18 07:30 Albumin 3.2 g/dL (3.0-4.8) 02/03/18 07:30 Globulin 3.6 gm/dL 02/03/18 07:30 Albumin/Globulin Ratio 0.9 (1.1-1.8) L 02/03/18 07:30 Lipase 31 U/L (23-300) 01/27/18 13:10 Venous Blood Potassium 4.7 mmol/L (3.6-5.2) 01/27/18 13:10 Urine Color Dark yellow (YELLOW) 01/27/18 13:50 Urine Appearance Sl cloudy (CLEAR) 01/27/18 13:50 Urine pH 8.5 (4.7-8.0) 01/27/18 13:50 Ur Specific Benedict 1.015 (1.005-1.035) 01/27/18 13:50 Urine Protein 100 mg/dL (<30 mg/dL) H 01/27/18 13:50 Urine Glucose (UA) Negative mg/dL (NEGATIVE) 01/27/18 13:50 Urine Ketones Negative mg/dL (NEGATIVE) 01/27/18 13:50 Urine Blood Large (NEGATIVE) H 01/27/18 13:50 Urine Nitrate Positive (NEGATIVE) H 01/27/18 13:50 Urine Bilirubin Negative (NEGATIVE) 01/27/18 13:50 Urine Urobilinogen 0.2 E.U./dL (<1 E.U./dL) 01/27/18 13:50 Ur Leukocyte Esterase Large Jus/uL (NEGATIVE) H 01/27/18 13:50 Urine RBC Tntc /hpf (0-2) 01/27/18 13:50 Urine WBC Tntc /hpf (0-6) 01/27/18 13:50 Urine Bacteria Large (NEG) 01/27/18 13:50 Influenza Typ A,B (EIA) Negative for flu a/b (NEGATIVE) 01/27/18 15:30 - Hospital Course Hospital Course: This is an 87yo male with past medical history metastatic prostate cancer s/p ADT and palliative radiate, seizures, glaucoma, dementia, UTI w/ indwelling holland (+ for E.coli and Enterococcus in the past) who came for lethargy and AMS. Patient was found to have sepsis with positive urine culture for citrobacter and blood culture for proteus. CT A/P was done which did not show acute abnormality. Patient was place on IV Merrem. ID was consulted. AMS resolved. Patient's home medication was continued. Patient completed 7 out of 14 days of IV antibiotics. He had midline placed. He has a 24hr health aid. He will be d.c home with IV Ertapenem once daily for 7 days. Patient was found to have mild transaminitis. He had abdominal ultrasound done which showed increased hepatic echogenicity, but no acute disease in preliminary read. Will follow up final read. Patient was given script to have repeat blood work done in one week after antibiotics are completed. I spoke with son who verbalized and agreed with discharge plan. - Date & Time of H&P Date of H&P: 01/28/18 Time of H&P: 06:30 Discharge Exam - Head Exam Head Exam: NORMAL INSPECTION, NORMOCEPHALIC - Eye Exam Eye Exam: Normal appearance, PERRL Pupil Exam: NORMAL ACCOMODATION, PERRL - ENT Exam ENT Exam: Mucous Membranes Moist - Neck Exam Neck exam: Full Rom - Respiratory Exam Respiratory Exam: Clear to PA & Lateral, NORMAL BREATHING PATTERN, UNREMARKABLE. absent: Rales, Rhonchi, Wheezes, Respiratory Distress - Cardiovascular Exam Cardiovascular Exam: REGULAR RHYTHM, +S1, +S2. absent: Gallop, Rubs, Systolic Murmur - GI/Abdominal Exam GI & Abdominal Exam: Normal Bowel Sounds, Soft, Tenderness (mild LLQ/RLQ), Unremarkable. absent: Mass, Rebound, Rigid - Extremities Exam Extremities exam: normal inspection - Neurological Exam Neurological exam: Alert, CN II-XII Intact - Skin Skin Exam: Dry, Intact, Normal Color, Warm Discharge Plan - Follow Up Plan Condition: GUARDED Disposition: HOME/ ROUTINE Instructions: Urinary Tract Infections in Adults, Sepsis in Adults, How to Care for a Central Line Catheter, Influenza Virus Vaccine (Inactivated), Pneumococcal Polysaccharide Vaccine (23-Valent) Additional Instructions: 1. Continue home medications 2. Complete IV antibiotics for 1 week 3. Repeat liver enzyme test after antibiotics. Referrals: Glynn Shields MD [Primary Care Provider] - <Kenny Bae - Last Filed: 02/04/18 18:24> Provider - Provider Date of Admission: 01/27/18 15:39 Attending physician: Kenny Bae MD Primary care physician: Glynn Shields MD Hospital Course - Lab Results Lab Results: Micro Results 01/30/18 18:27 Blood Blood Culture - Preliminary NO GROWTH AFTER 4 DAYS 01/30/18 18:27 Blood Blood Culture - Preliminary NO GROWTH AFTER 4 DAYS 01/27/18 13:10 Blood Blood Culture - Final Proteus Mirabilis 01/27/18 13:10 Blood Gram Stain - Final 01/27/18 13:10 Blood Blood Culture - Final Proteus Mirabilis 01/27/18 13:10 Blood Gram Stain - Final 01/27/18 20:14 Urine,Clean Catch Urine Culture - Final Citrobacter Diversus Most Recent Lab Values WBC 7.6 10^3/ul (4.5-11.0) D 02/02/18 06:30 RBC 3.42 10^6/uL (3.5-6.1) L 02/02/18 06:30 Hgb 10.4 g/dL (14.0-18.0) L 02/02/18 06:30 Hct 32.6 % (42.0-52.0) L 02/02/18 06:30 MCV 95.3 fl (80.0-105.0) 02/02/18 06:30 MCH 30.4 pg (25.0-35.0) 02/02/18 06:30 MCHC 31.9 g/dl (31.0-37.0) 02/02/18 06:30 RDW 13.7 % (11.5-14.5) 02/02/18 06:30 Plt Count 196 10^3/uL (120.0-450.0) 02/02/18 06:30 MPV 9.4 fl (7.0-11.0) 02/02/18 06:30 Gran % 78.4 % (50.0-68.0) H 01/27/18 13:10 Lymph % (Auto) 20.7 % (22.0-35.0) L 01/27/18 13:10 [place] % (Auto) 0.8 % (1.0-6.0) L 01/27/18 13:10 Eos % (Auto) 0.1 % (1.5-5.0) L 01/27/18 13:10 Baso % (Auto) 0.0 % (0.0-3.0) 01/27/18 13:10 Gran # 5.85 (1.4-6.5) 01/27/18 13:10 Lymph # (Auto) 1.6 (1.2-3.4) 01/27/18 13:10 [place] # (Auto) 0.1 (0.1-0.6) 01/27/18 13:10 Eos # (Auto) 0.0 (0.0-0.7) 01/27/18 13:10 Baso # (Auto) 0.00 K/mm3 (0.0-2.0) 01/27/18 13:10 PT 17.8 SECONDS (9.4-12.5) H 01/27/18 13:10 INR 1.55 01/27/18 13:10 APTT 27.9 Seconds (25.1-36.5) 01/27/18 13:10 pO2 158 mm/Hg (30-55) H 01/27/18 13:10 VBG pH 7.52 (7.32-7.43) H 01/27/18 13:10 VBG pCO2 22.0 (40-60) L 01/27/18 13:10 VBG HCO3 18.0 mmol/l (21-28) L 01/27/18 13:10 VBG Total CO2 18.7 mmol.L (22-28) L 01/27/18 13:10 VBG O2 Sat (Calc) 97.3 % (40-65) H 01/27/18 13:10 VBG Base Excess -2.9 mmol/L (0.0-2.0) L 01/27/18 13:10 VBG Potassium 4.7 mmol/L (3.6-5.2) 01/27/18 13:10 Sodium 125.0 mmol/L (132-148) L 01/27/18 13:10 Chloride 96.0 mmol/L (98-107) L 01/27/18 13:10 Glucose 108 mg/dl (75-110) 01/27/18 13:10 Lactate 1.8 mmol/L (0.7-2.1) 01/27/18 13:10 FiO2 21.0 % 01/27/18 13:10 Sodium 139 mmol/L (132-148) 02/03/18 07:30 Potassium 4.0 mmol/L (3.6-5.0) 02/03/18 07:30 Chloride 106 mmol/L (98-107) 02/03/18 07:30 Carbon Dioxide 26 mmol/L (21-33) 02/03/18 07:30 Anion Gap 11 (10-20) 02/03/18 07:30 BUN 23 mg/dL (7-21) H 02/03/18 07:30 Creatinine 0.5 mg/dl (0.8-1.5) L 02/03/18 07:30 Est GFR ( Amer) > 60 02/03/18 07:30 Est GFR (Non-Af Amer) > 60 02/03/18 07:30 POC Glucose (mg/dL) 104 mg/dL (65-110) 01/27/18 13:01 Random Glucose 87 mg/dL (70-110) 02/03/18 07:30 Calcium 8.4 mg/dL (8.4-10.5) 02/03/18 07:30 Phosphorus 6.4 mg/dL (2.5-4.5) H 01/28/18 06:30 Magnesium 2.1 mg/dL (1.7-2.2) 01/28/18 06:30 Total Bilirubin 0.3 mg/dL (0.2-1.3) 02/03/18 07:30 Direct Bilirubin 0.6 mg/dL (0.0-0.4) H 01/27/18 13:10 AST 156 U/L (17-59) H 02/03/18 07:30 ALT 167 U/L (7-56) H 02/03/18 07:30 Alkaline Phosphatase 138 U/L (38-126) H 02/03/18 07:30 Lactate Dehydrogenase 606 U/L (333-699) 01/27/18 13:10 Total Creatine Kinase 109 U/L (35-230) 01/27/18 13:10 Troponin I 0.06 ng/mL D 01/27/18 13:10 NT-Pro-B Natriuret Pep 4640 pg/mL (0-450) H 01/27/18 13:10 Total Protein 6.9 g/dL (5.8-8.3) 02/03/18 07:30 Albumin 3.2 g/dL (3.0-4.8) 02/03/18 07:30 Globulin 3.6 gm/dL 02/03/18 07:30 Albumin/Globulin Ratio 0.9 (1.1-1.8) L 02/03/18 07:30 Lipase 31 U/L (23-300) 01/27/18 13:10 Venous Blood Potassium 4.7 mmol/L (3.6-5.2) 01/27/18 13:10 Urine Color Dark yellow (YELLOW) 01/27/18 13:50 Urine Appearance Sl cloudy (CLEAR) 01/27/18 13:50 Urine pH 8.5 (4.7-8.0) 01/27/18 13:50 Ur Specific [place] 1.015 (1.005-1.035) 01/27/18 13:50 Urine Protein 100 mg/dL (<30 mg/dL) H 01/27/18 13:50 Urine Glucose (UA) Negative mg/dL (NEGATIVE) 01/27/18 13:50 Urine Ketones Negative mg/dL (NEGATIVE) 01/27/18 13:50 Urine Blood Large (NEGATIVE) H 01/27/18 13:50 Urine Nitrate Positive (NEGATIVE) H 01/27/18 13:50 Urine Bilirubin Negative (NEGATIVE) 01/27/18 13:50 Urine Urobilinogen 0.2 E.U./dL (<1 E.U./dL) 01/27/18 13:50 Ur Leukocyte Esterase Large Jus/uL (NEGATIVE) H 01/27/18 13:50 Urine RBC Tntc /hpf (0-2) 01/27/18 13:50 Urine WBC Tntc /hpf (0-6) 01/27/18 13:50 Urine Bacteria Large (NEG) 01/27/18 13:50 Influenza Typ A,B (EIA) Negative for flu a/b (NEGATIVE) 01/27/18 15:30 - Hospital Course Hospital Course: Pt seen and examined by me. This is a late entry. I have reviewed the note by the certified medical coder. The case was discussed and reviewed with the resident. I r eviewed the medications and labs. Pt with sepsis that has improved. Pt will continue with IV Abx. He has a midline. He will get his Abx at homes. His US of the liver was done and reviewed. He has prostate cancer and no further treatment will be done.
--- NOTE | 2018-02-03 17:03 | US ---
Date of service: 02/03/2018 HISTORY: liver enzymes elevation COMPARISON: None. TECHNIQUE: Sonographic evaluation of the abdomen. FINDINGS: LIVER: Measures 19.2 cm. Diffusely increased echogenicity of the liver parenchyma. Consistent with fatty infiltration. Smooth contour. No mass. No biliary dilatation. Normal hepatopetal portal venous flow. GALLBLADDER: Unremarkable. No gallstones. COMMON BILE DUCT: Measures mm. 5 PANCREAS: Unremarkable as visualized. No mass. No ductal dilatation. RIGHT KIDNEY: Measures 10.4cm. Normal echogenicity. No calculus, mass, or hydronephrosis. LEFT KIDNEY: Measures 11.6cm. Normal echogenicity. No calculus, mass, or hydronephrosis. SPLEEN: Normal in size and contour. No mass. AORTA: No aneurysmal dilatation. IVC: Unremarkable. OTHER FINDINGS: None. IMPRESSION: Mild hepatomegaly with diffuse fatty infiltration of the liver. No evidence of biliary obstruction. Otherwise unremarkable examination.
--- NOTE | 2018-02-03 21:39 | CP.PCM.PN ---
Subjective - Date & Time of Evaluation Date of Evaluation: 02/03/18 Time of Evaluation: 11:50 - Subjective Subjective: Afebrile, no fevers, not in distress. Objective - Vital Signs/Intake and Output Vital Signs (last 24 hours): Temp Pulse Resp BP Pulse Ox 98.2 F 83 16 120/44 L 96 02/03/18 14:00 02/03/18 14:00 02/03/18 14:00 02/03/18 14:00 02/03/18 14:00 Intake and Output: 02/03/18 02/04/18 18:59 06:59 Intake Total 420 Balance 420 - Medications Medications: Current Medications Acetaminophen (Tylenol 325mg Tab) 650 mg PO Q6H PRN PRN Reason: Fever >100.4 F Carbamazepine (Tegretol) 200 mg PO TID TARA; Protocol Last Admin: 02/03/18 18:04 Dose: 200 mg Fentanyl (Duragesic) 1 patch TD Q72H TARA Last Admin: 02/01/18 15:47 Dose: 1 patch Meropenem (Merrem Iv 1 Gm Premix) 1 gm in 50 mls @ 100 mls/hr IVPB Q8 TARA; Protocol Last Admin: 02/03/18 21:21 Dose: 100 mls/hr - Labs Labs: 02/02/18 06:30 02/03/18 07:30 PT 17.8 SECONDS (9.4-12.5) H 01/27/18 13:10 INR 1.55 01/27/18 13:10 APTT 27.9 Seconds (25.1-36.5) 01/27/18 13:10 - Constitutional Appears: Chronically Ill - Head Exam Head Exam: NORMAL INSPECTION - Respiratory Exam Respiratory Exam: Decreased Breath Sounds - Cardiovascular Exam Cardiovascular Exam: +S1, +S2 - GI/Abdominal Exam GI & Abdominal Exam: Soft. absent: Tenderness Assessment and Plan - Assessment and Plan (Free Text) Plan: Assessment Proteus bacteremia, source unclear, concerned about intra-abdominal infection history of UTI in this patient with prostate cancer with metastasis history of Klebsiella urinary tract infection Mechanical fall, etiology to be determined prostate cancer on Lupron treatment once a month (hormonal treatment) seizure disorder glaucoma Plan continue Merrem day 7 to complete 14 days of therapy; repeat blood cx are negative AST, ALT elevated - abdominal ultrasound is showing fatty liver and that is probably the reason for the mild AST, ALT elevation
[2018-02-04] MEDS: Meropenem IV 1 gm in NS 1 GM/50 ML BAG IVPB SCH ×2 (05:52→14:00)
--- NOTE | 2018-02-04 06:53 | CP.PCM.PN ---
<Matilde Casey - Last Filed: 02/04/18 08:47> Subjective - Date & Time of Evaluation Date of Evaluation: 02/04/18 Time of Evaluation: 07:00 - Subjective Subjective: Medicine Progress Note for Breanne Dan PGY3 Patient seen and examined at bedside. There were no acute overnight events as p er nursing staff. Patient states he had loose stools yesterday which have resolved. Patient denies abdominal pain, chest pain, shortness of breath, nausea/vomiting/diarrhea, fever/chills, numbness/tingling. Objective - Vital Signs/Intake and Output Vital Signs (last 24 hours): Temp Pulse Resp BP Pulse Ox 98 F 81 20 176/102 H 95 02/03/18 22:38 02/03/18 22:38 02/03/18 22:38 02/03/18 22:38 02/03/18 22:38 Intake and Output: 02/03/18 02/04/18 18:59 06:59 Intake Total 420 180 Output Total 1900 Balance 420 -1720 - Medications Medications: Current Medications Acetaminophen (Tylenol 325mg Tab) 650 mg PO Q6H PRN PRN Reason: Fever >100.4 F Carbamazepine (Tegretol) 200 mg PO TID TARA; Protocol Last Admin: 02/03/18 18:04 Dose: 200 mg Fentanyl (Duragesic) 1 patch TD Q72H TARA Last Admin: 02/01/18 15:47 Dose: 1 patch Meropenem (Merrem Iv 1 Gm Premix) 1 gm in 50 mls @ 100 mls/hr IVPB Q8 TARA; Protocol Last Admin: 02/04/18 05:52 Dose: 100 mls/hr - Labs Labs: 02/02/18 06:30 02/03/18 07:30 PT 17.8 SECONDS (9.4-12.5) H 01/27/18 13:10 INR 1.55 01/27/18 13:10 APTT 27.9 Seconds (25.1-36.5) 01/27/18 13:10 - Constitutional Appears: No Acute Distress - Head Exam Head Exam: ATRAUMATIC, NORMAL INSPECTION, NORMOCEPHALIC - Eye Exam Eye Exam: EOMI, Normal appearance, PERRL Pupil Exam: NORMAL ACCOMODATION, PERRL - ENT Exam ENT Exam: Mucous Membranes Moist - Neck Exam Neck Exam: Full ROM, Normal Inspection. absent: Tenderness - Respiratory Exam Respiratory Exam: Clear to Ausculation Bilateral, NORMAL BREATHING PATTERN. absent: Rales, Rhonchi, Wheezes - Cardiovascular Exam Cardiovascular Exam: REGULAR RHYTHM, +S1, +S2. absent: Gallop, Rubs, Murmur - GI/Abdominal Exam GI & Abdominal Exam: Soft, Normal Bowel Sounds. absent: Rigid, Tenderness, Mass, Rebound - Extremities Exam Extremities Exam: Normal Inspection. absent: Calf Tenderness, Pedal Edema - Neurological Exam Neurological Exam: Alert, Awake, CN II-XII Intact - Psychiatric Exam Psychiatric exam: Normal Affect, Normal Mood - Skin Skin Exam: Dry, Normal Color, Warm Assessment and Plan - Assessment and Plan (Free Text) Assessment: 1. Sepsis - improved - secondary to UTI and bacteremia - blood cultures + for proteus - Urine culture + for Citrobacter - repeat blood cultures negative thus far 2. Transaminitis - can be secondary to antibiotics 3. Seizures 4. Metastatic prostate ca - currently not on treatment Plan: Labs and imaging reviewed. Patient was supposed to be d/c yesterday home with IV ertapenem once daily. Awaiting insurance approval. Once approved patient can be d/c home. Abdominal US was done which did not show any acute abnormalities. Pain is controlled and patient is tolerating diet. Will continue Tegetrol and Merrem. Patient has Midline in place. I spoke with son to update him on the plan. Case seen, discussed and reviewed with Dr. Bae. Lakisha Casey PGY3 <Kenny Bae S - Last Filed: 02/04/18 17:52> Objective - Vital Signs/Intake and Output Vital Signs (last 24 hours): Temp Pulse Resp BP Pulse Ox 97.8 F 94 H 18 112/50 L 97 02/04/18 14:00 02/04/18 14:00 02/04/18 14:00 02/04/18 14:00 02/04/18 14:00 Intake and Output: 02/04/18 02/04/18 06:59 18:59 Intake Total 180 Output Total 1900 Balance -1720 - Labs Labs: 02/02/18 06:30 02/03/18 07:30 PT 17.8 SECONDS (9.4-12.5) H 01/27/18 13:10 INR 1.55 01/27/18 13:10 APTT 27.9 Seconds (25.1-36.5) 01/27/18 13:10 Assessment and Plan - Assessment and Plan (Free Text) Plan: Pt seen and examined by me. I have reviewed the note by the medical device sales. The case was discussed and reviewed with the resident. I reviewed the medications and labs. Pt with sepsis and is going to continue with Ertapenem. He is eating well. He denies any pain. He has been able to sleep. He has a midline for IV Abx. Plan is for D/C and finish outpt Abx.
[2018-02-04 11:30] VITALS: RESP 18; TEMP 97.8
[2018-02-04 14:49] VITALS: BP 112/50; PULSE 94; O2SAT 97
--- NOTE | 2018-02-04 20:28 | CP.PCM.PN ---
Subjective - Date & Time of Evaluation Date of Evaluation: 02/04/18 Time of Evaluation: 12:30 - Subjective Subjective: No fevers, not in distress. Objective - Vital Signs/Intake and Output Vital Signs (last 24 hours): Temp Pulse Resp BP Pulse Ox 97.8 F 94 H 18 112/50 L 97 02/04/18 14:00 02/04/18 14:00 02/04/18 14:00 02/04/18 14:00 02/04/18 14:00 - Labs Labs: 02/02/18 06:30 02/03/18 07:30 PT 17.8 SECONDS (9.4-12.5) H 01/27/18 13:10 INR 1.55 01/27/18 13:10 APTT 27.9 Seconds (25.1-36.5) 01/27/18 13:10 - Constitutional Appears: Chronically Ill - Head Exam Head Exam: NORMAL INSPECTION - Respiratory Exam Respiratory Exam: Decreased Breath Sounds - Cardiovascular Exam Cardiovascular Exam: +S1, +S2 - GI/Abdominal Exam GI & Abdominal Exam: Soft. absent: Tenderness Assessment and Plan - Assessment and Plan (Free Text) Plan: Assessment Proteus bacteremia, source unclear, concerned about intra-abdominal infection history of UTI in this patient with prostate cancer with metastasis history of Klebsiella urinary tract infection Mechanical fall, etiology to be determined prostate cancer on Lupron treatment once a month (hormonal treatment) seizure disorder glaucoma Plan continue Merrem day 8 to complete 14 days of therapy; repeat blood cx are negative AST, ALT elevated - abdominal ultrasound is showing fatty liver and that is probably the reason for the mild AST, ALT elevation
== END 2018-02-04 17:21 | disposition home or self-care (01) | DRG 872 ==
LOC: ED 12:57 → ERH 15:39 → 2RSO 21:03 → 5RSO 01-30 17:03
PROVIDERS: ADMIT Internal Medicine Nephrology; ATTEND Internal Medicine Nephrology
PROC: 05HY33Z Insertion of Infusion Device into Upper Vein, Percutaneous Approach (ICD-10-PCS; principal; 2018-02-03)
PROC: B54MZZA Ultrasonography of Right Upper Extremity Veins, Guidance (ICD-10-PCS; 2018-02-03)
DX: A41.59 Other Gram-negative sepsis (principal); C79.51 Secondary malignant neoplasm of bone; N17.9 Acute kidney failure, unspecified; N39.0 Urinary tract infection, site not specified; C61 Malignant neoplasm of prostate; F03.90 Unspecified dementia, unspecified severity, without behavioral disturbance, psychotic disturbance, mood disturbance, and anxiety; G40.909 Epilepsy, unspecified, not intractable, without status epilepticus; H40.9 Unspecified glaucoma; D86.9 Sarcoidosis, unspecified; R65.20 Severe sepsis without septic shock; Z66 Do not resuscitate; K59.00 Constipation, unspecified; R74.0 Nonspecific elevation of levels of transaminase and lactic acid dehydrogenase [LDH]; Z87.891 Personal history of nicotine dependence; Z79.818 Long term (current) use of other agents affecting estrogen receptors and estrogen levels; Z87.01 Personal history of pneumonia (recurrent)

== ENCOUNTER 2018-04-16 02:52 | Emergency (ER) | payer MEDICARE ==
[2018-04-16 02:53] VITALS: BMI 24.7
--- NOTE | 2018-04-16 03:03 | ED PDOC ---
Arrival/HPI - General Chief Complaint: Male Genitourinary Time Seen by Provider: 04/16/18 02:55 Historian: Patient, Family - History of Present Illness Narrative History of Present Illness (Text): 04/16/18 03:03 Larry Mcadams is an 87 year old male, whose past medical history in metastatic prostate cancer s/p ADT and palliative radiations, seizures, dementia, recurrent UTIs with inswelling folwy and glaucoma, who presents to the Emergency department brought in by EMS accompanied by son complaining of urinary retention. As per son, patient was fine earlier this evening as emptied his holland bag at 21:00. Son states at 22:00 patient began complaining of lower abdominal pain and noted patient's holland was not draining urine. Patient denies any fever, chills, nausea, vomiting, diarrhea, back pain, neck pain, headache, dizziness, or any other complaints. Symptom Onset: Gradual Symptom Course: Unchanged Activities at Onset: Light Context: Home Past Medical History - Provider Review Nursing Documentation Reviewed: Yes - Infectious Disease Hx of Infectious Diseases: None - Cardiac Hx Pacemaker: No - Pulmonary Hx Respiratory Disorders: Yes (H/O SMOKING CIGARETTES) Other/Comment: EMPYEMA/SARCOIDOSIS - Neurological Hx Dizziness: Yes (syncope) Hx Seizures: Yes (last seizure 20 yrs ago) - HEENT Hx Cataracts: Yes (with bilateral sx) - Renal Hx Renal Disorder: Yes Other/Comment: chronic holland-Prostate ca. - Endocrine/Metabolic Hx Endocrine Disorders: No - Hematological/Oncological Hx Cancer: Yes (prostate) - Integumentary Hx Dermatological Disorder: Yes Other/Comment: 218 bilateral le edema +2 more to right .Pitting with dry thin scaly flakes. - Musculoskeletal/Rheumatological Hx Falls: Yes - Gastrointestinal Hx Gastrointestinal Disorders: Yes (constipation) - Genitourinary/Gynecological Hx Urinary Tract Infection: Yes - Psychiatric Hx Psychophysiologic Disorder: Yes Hx Substance Use: No - Surgical History Hx Mastectomy: No - Anesthesia Hx Anesthesia: No Family/Social History - Physician Review Nursing Documentation Reviewed: Yes Family/Social History: Unknown Family HX Smoking Status: Former Smoker Hx Alcohol Use: Yes (occasional) Hx Substance Use: No Allergies/Home Meds Allergies/Adverse Reactions: Allergies No Known Allergies Allergy (Verified 01/27/18 21:18) Review of Systems - Physician Review All systems were reviewed & negative as marked: Yes - Review of Systems Constitutional: absent: Fevers Respiratory: absent: SOB Cardiovascular: absent: Chest Pain Gastrointestinal: Abdominal Pain. absent: Diarrhea, Nausea, Vomiting Genitourinary Male: Urinary Output Changes (+urinary retention) Physical Exam Vital Signs Reviewed: Yes Temperature: Afebrile Blood Pressure: Normal Pulse: Regular Respiratory Rate: Normal Appearance: Positive for: Well-Appearing, Non-Toxic, Comfortable Pain Distress: None Mental Status: Positive for: Alert and Oriented X 3 - Systems Exam Head: Present: Atraumatic, Normocephalic Pupils: Present: PERRL Extroacular Muscles: Present: EOMI Conjunctiva: Present: Normal Mouth: Present: Moist Mucous Membranes Neck: Present: Normal Range of Motion Respiratory/Chest: Present: Clear to Auscultation, Good Air Exchange. No: Respiratory Distress, Accessory Muscle Use Cardiovascular: Present: Regular Rate and Rhythm, Normal S1, S2. No: Murmurs Abdomen: Present: Tenderness (Mild lower abdominal tenderness). No: Distention, Peritoneal Signs Back: Present: Normal Inspection Upper Extremity: Present: Normal Inspection. No: Cyanosis, Edema Lower Extremity: Present: Normal Inspection. No: Edema Neurological: Present: GCS=15, CN II-XII Intact, Speech Normal Skin: Present: Warm, Dry, Normal Color. No: Rashes Psychiatric: Present: Alert, Oriented x 3, Normal Insight, Normal Concentration Medical Decision Making ED Course and Treatment: 04/16/18 03:03 Impression: 87 year old male complaining of urinary retention with lower abdominal pain. Plan: -- Holland catheter change -- Urinalysis, urine cultures -- Reassess and disposition Prior Visits: Notes and results from previous visits were reviewed. Progress Notes: Holland catheter removed and replaced by RN without difficulty. Pt tolerated procedure well. Holland draining >900cc of urine. 04/16/18 05:14 On re-evaluation, patient feels better and is in no acute distress. I have discussed the results and plan with the patient and family, who express understanding. Family in agreement with plan to be discharged home. Patient is stable for discharge. Patient and family were instructed to follow up with physician or return if symptoms worsen or new concerning symptoms arise. - Lab Interpretations I have reviewed the lab results: Yes - Scribe Statement The provider has reviewed the documentation as recorded by the Scribe Mylene Fuenteszon Provider Scribe Attestation: All medical record entries made by the Scribe were at my direction and personally dictated by me. I have reviewed the chart and agree that the record accurately reflects my personal performance of the history, physical exam, medical decision making, and the department course for this patient. I have also personally directed, reviewed, and agree with the discharge instructions and disposition. Disposition/Present on Arrival - Present on Arrival Any Indicators Present on Arrival: No History of DVT/PE: No History of Uncontrolled Diabetes: No Urinary Catheter: No History of Decub. Ulcer: No History Surgical Site Infection Following: None - Disposition Have Diagnosis and Disposition been Completed?: Yes Diagnosis: Urinary tract infection, Holland catheter problem Disposition: HOME/ ROUTINE Disposition Time: 05:15 Condition: STABLE Discharge Instructions (ExitCare): Urinary Tract Infections in Adults Prescriptions: Cephalexin [Keflex] 500 mg PO BID #14 capsule Referrals: Glynn Shields MD [Primary Care Provider] - Follow up with primary Forms: [employer] (Korean)
[2018-04-16 03:38] VITALS: RESP 18
[2018-04-16 04:18] LABS: PH,URINE >=9.0 (4.7-8.0); URINE BILIRUBIN NEGATIVE (NEGATIVE); URINE BLOOD SMALL (NEGATIVE); URINE COLOR YELLOW (YELLOW); URINE GLUCOSE (UA) NEGATIVE (NEGATIVE); URINE LEUKOCYTE ESTERASE LARGE Leu/uL (NEGATIVE); URINE PROTEIN 30 mg/dL (<30 mg/dL); URINE UROBILINOGEN 0.2 E.U./dL (<1 E.U./dL)
[2018-04-16 04:19] LABS: URINE APPEARANCE SL CLOUDY (CLEAR)
[2018-04-16 04:30] LABS: URINE EPITHELIAL CELLS 0 - 2 /hpf (0-5); URINE RBC 0 - 2 /hpf (0-2); URINE WBC 20 - 25 /hpf (0-6)
[2018-04-16 04:31] LABS: URINE BACTERIA MANY /hpf
[2018-04-16 06:08] VITALS: BP 123/60; PULSE 91; TEMP 98.2; O2SAT 100
== END 2018-04-16 06:05 | disposition home or self-care (01) ==
LOC: ED 02:52
DX: N39.0 Urinary tract infection, site not specified (principal); T83.9XXA Unspecified complication of genitourinary prosthetic device, implant and graft, initial encounter; Z85.46 Personal history of malignant neoplasm of prostate; Z87.891 Personal history of nicotine dependence

== ENCOUNTER 2018-05-22 05:27 | Inpatient (IN) | payer MEDICARE ==
--- NOTE | 2018-05-22 05:41 | ED PDOC ---
Arrival/HPI - General Time Seen by Provider: 05/22/18 05:33 Historian: Patient - History of Present Illness Narrative History of Present Illness (Text): 05/22/18 05:42 88 year old male, whose past medical history in metastatic prostate cancer s/p ADT and palliative radiations, seizures, dementia, recurrent UTIs with indwelling holland and glaucoma, who presents to the Emergency department brought in by EMS accompanied by son complaining of lower abdominal pain, since yesterday. Patient states holland was last changed on 05/13/18, and is in place due to his prostate issues. Patient states he noticed his holland wasn't draining yesterday. Patient is unsure of abdominal pain started before or after holland stopped draining. Holland bag has a small amount of dark, tea colored, urine. Patient denies any fevers, chills, headache, dizziness, chest pain, shortness of breath, cough, nausea, vomiting, diarrhea, or any other complaint. Time/Duration: Prior to Arrival, 24 hours Symptom Onset: Gradual Symptom Course: Unchanged Quality: Pressure Activities at Onset: Light Past Medical History - Provider Review Nursing Documentation Reviewed: Yes - Infectious Disease Hx of Infectious Diseases: None - Cardiac Hx Pacemaker: No - Pulmonary Hx Respiratory Disorders: Yes (H/O SMOKING CIGARETTES) Other/Comment: EMPYEMA/SARCOIDOSIS - Neurological Hx Dizziness: Yes (syncope) Hx Seizures: Yes (last seizure 20 yrs ago) - HEENT Hx Cataracts: Yes (with bilateral sx) - Renal Hx Renal Disorder: Yes Other/Comment: chronic holland-Prostate ca. - Endocrine/Metabolic Hx Endocrine Disorders: No - Hematological/Oncological Hx Cancer: Yes (prostate) - Integumentary Hx Dermatological Disorder: Yes Other/Comment: 06-03-17 bilateral le edema +2 more to right .Pitting with dry thin scaly flakes. - Musculoskeletal/Rheumatological Hx Falls: Yes - Gastrointestinal Hx Gastrointestinal Disorders: Yes (constipation) - Genitourinary/Gynecological Hx Urinary Tract Infection: Yes - Psychiatric Hx Psychophysiologic Disorder: Yes Hx Substance Use: No - Surgical History Hx Mastectomy: No - Anesthesia Hx Anesthesia: No Family/Social History - Physician Review Nursing Documentation Reviewed: Yes Family/Social History: No Known Family HX Smoking Status: Former Smoker Hx Alcohol Use: Yes (occasional) Hx Substance Use: No Allergies/Home Meds Allergies/Adverse Reactions: Allergies No Known Allergies Allergy (Verified 05/22/18 16:26) Home Medications: Home Meds Medication Instructions Recorded Confirmed Fentanyl [Duragesic Patch] 50 mcg TD Q72 05/22/18 05/22/18 Gemfibrozil [Lopid] 600 mg PO BID 05/22/18 05/22/18 Omeprazole 40 mg PO DAILY 05/22/18 05/22/18 Review of Systems - Physician Review All systems were reviewed & negative as marked: Yes - Review of Systems Constitutional: absent: Fevers, Night Sweats Respiratory: absent: SOB, Cough Cardiovascular: absent: Chest Pain Gastrointestinal: Abdominal Pain. absent: Diarrhea, Nausea, Vomiting Neurological: absent: Headache, Dizziness Physical Exam Vital Signs Reviewed: Yes Vital Signs Temp Pulse Resp BP Pulse Ox 05/22/18 05:34 98.2 F 100 H 17 174/80 H 97 Temperature: Afebrile Blood Pressure: Hypertensive Pulse: Tachycardic Respiratory Rate: Normal Appearance: Positive for: Well-Appearing, Non-Toxic, Comfortable Pain Distress: None Mental Status: Positive for: Alert and Oriented X 3 - Systems Exam Head: Present: Atraumatic, Normocephalic Pupils: Present: PERRL Extroacular Muscles: Present: EOMI Conjunctiva: Present: Normal Mouth: Present: Moist Mucous Membranes Neck: Present: Normal Range of Motion Respiratory/Chest: Present: Clear to Auscultation, Good Air Exchange. No: Respiratory Distress, Accessory Muscle Use Cardiovascular: Present: Regular Rate and Rhythm, Normal S1, S2. No: Murmurs Abdomen: Present: Tenderness (Tenderness in right and left lower quadrants), Other (Holland in place). No: Distention, Peritoneal Signs Back: Present: Normal Inspection Upper Extremity: Present: Normal Inspection. No: Cyanosis, Edema Lower Extremity: Present: Normal Inspection. No: Edema Neurological: Present: GCS=15, CN II-XII Intact, Speech Normal Skin: Present: Warm, Dry, Normal Color. No: Rashes Psychiatric: Present: Alert, Oriented x 3, Normal Insight, Normal Concentration Medical Decision Making ED Course and Treatment: 05/22/18 05:49 Impression: 88 year old male presents with lower abdominal pain. Plan: -- CMP -- CBC -- Urinalysis -- Reassess and disposition Prior Visits: Notes and results from previous visits were reviewed. Progress Notes: UA done and UTI noted. Patient tachycardic with leukocytosis, so will admit for further management. Case discussed with Dr. Bae who accepts patient to his service for admission. - Scribe Statement The provider has reviewed the documentation as recorded by the Elaineibe Rickey Hendrix Provider Scribe Attestation: All medical record entries made by the Scribe were at my direction and personally dictated by me. I have reviewed the chart and agree that the record accurately reflects my personal performance of the history, physical exam, medical decision making, and the department course for this patient. I have also personally directed, reviewed, and agree with the discharge instructions and disposition. Disposition/Present on Arrival - Present on Arrival Any Indicators Present on Arrival: No History of DVT/PE: No History of Uncontrolled Diabetes: No Urinary Catheter: No History of Decub. Ulcer: No History Surgical Site Infection Following: None - Disposition Have Diagnosis and Disposition been Completed?: Yes Diagnosis: Urinary tract infection Disposition: HOSPITALIZED Disposition Time: 06:54 Patient Problems: Current Active Problems Problem Status Onset Sepsis Acute Urinary tract infection Acute Condition: FAIR
[2018-05-22 06:33] LABS: EOS % 0.1 % (1.5-5.0); GRAN # 10.53 (1.4-6.5); GRAN % 81.8 % (50.0-68.0); LYMPH # 1.7 (1.2-3.4); MEAN CORPUSCULAR HEMOGLOBIN 30.5 pg (25.0-35.0); MEAN PLATELET VOLUME 8.9 fl (7.0-11.0); MONO # 0.7 (0.1-0.6); MONO % 5.1 % (1.0-6.0); RBC 4.07 10^6/uL (3.5-6.1); WHITE BLOOD COUNT 12.9 10^3/uL (4.5-11.0)
[2018-05-22 06:35] LABS: PH,URINE 8.5 (4.7-8.0); URINE BILIRUBIN NEGATIVE (NEGATIVE); URINE BLOOD LARGE (NEGATIVE); URINE GLUCOSE (UA) NEGATIVE (NEGATIVE); URINE LEUKOCYTE ESTERASE MODERATE Leu/uL (NEGATIVE); URINE PROTEIN 100 mg/dL (<30 mg/dL); URINE UROBILINOGEN 0.2 E.U./dL (<1 E.U./dL)
[2018-05-22 06:37] LABS: HEMOGLOBIN 12.4 g/dL (14.0-18.0); MEAN CELL VOLUME 89.7 fl (80.0-105.0); URINE COLOR RED (YELLOW)
[2018-05-22 06:38] LABS: URINE APPEARANCE CLOUDY (CLEAR)
[2018-05-22 06:46] LABS: ALB/GLOB RATIO 1.1 (1.1-1.8); ALBUMIN 4.3 g/dL (3.0-4.8); ALT/SGPT 17 U/L (7-56); AST/SGOT 32 U/L (17-59); BLOOD UREA NITROGEN 41 mg/dL (7-21); CALCIUM 9.3 mg/dL (8.4-10.5); GFR NON-AFRICAN AMERICAN > 60
[2018-05-22] MEDS ORDERED: Sodium Chloride 0.9% 1,000 ML IV STA (06:50)
[2018-05-22] MEDS ORDERED: cefTRIAXone 1 gm 1 GM/100 ML BAG IVPB ONE (06:50)
[2018-05-22 06:51] LABS: URINE BACTERIA MANY /hpf; URINE EPITHELIAL CELLS 0 - 2 /hpf (0-5); URINE WBC 15 - 20 /hpf (0-6)
[2018-05-22 07:51] LABS: VENOUS BLOOD GAS BASE EXCESS -2.2 mmol/L (0.0-2.0); VENOUS BLOOD GAS PO2 49 mm/Hg (30-55); VENOUS BLOOD PH 7.36 (7.32-7.43)
--- NOTE | 2018-05-22 08:02 | CP.PCM.HP ---
<Sana Corea - Last Filed: 05/22/18 19:38> History of Present Illness - History of Present Illness History of Present Illness: 88yo male PMHx metastatic prostate cancer s/p ADT and palliative radiation on Lupron, seizures, glaucoma, dementia, UTI w/ indwelling holland (+ for E.coli, Klebsiella, and Enterococcus in the past) brought to ED by son for ower abdominal pain for the past 1-2 days, associated with dark colored urine. Patient was slightly lethargic and history obtained from both son and patient. Patient has visiting nurse come every month to change catheter; last change was 05/13/18. However over the past 1-2 days he was noted to be tired and with decreased and dark UO. Patient denied other complaints of fever, chills, headache, dizziness, chest pain, palpitations, SOB, cough, nausea, vomiting, bowel complaints, pain/swelling in his legs bilaterally. PMHx: metastatic prostate cancer s/p ADT and palliative radiation on Lupron, seizures, glaucoma, dementia, UTI w/ indwelling holland (+ for E.coli, Klebsiella, and Enterococcus in the past) PSurgHx: bilateral cataract surgery Home meds: As per MAR Allergies: NKDA SocHx: Denies EtOH, drug or tobacco use. 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 he is not active and is wheelchair bound. FamHx: non-contributory Present on Admission - Present on Admission Any Indicators Present on Admission: Yes Urinary Catheter: Yes Review of Systems - Review of Systems All systems: reviewed and no additional remarkable complaints except Review of Systems: as per HPI Past Patient History - Infectious Disease Hx of Infectious Diseases: None - Past Social History Smoking Status: Former Smoker - CARDIAC Hx Pacemaker: No - PULMONARY Hx Respiratory Disorders: Yes (H/O SMOKING CIGARETTES) Other/Comment: EMPYEMA/SARCOIDOSIS - NEUROLOGICAL Hx Dizziness: Yes (syncope) Hx Seizures: Yes (last seizure 20 yrs ago) - HEENT Hx Cataracts: Yes (with bilateral sx) - RENAL Hx Chronic Kidney Disease: Yes Other/Comment: chronic holland-Prostate ca. - ENDOCRINE/METABOLIC Hx Endocrine Disorders: No - HEMATOLOGICAL/ONCOLOGICAL Hx Cancer: Yes (prostate) - INTEGUMENTARY Hx Dermatological Problems: Yes Other/Comment: 218 bilateral le edema +2 more to right .Pitting with dry thin scaly flakes. - MUSCULOSKELETAL/RHEUMATOLOGICAL Hx Falls: Yes - GASTROINTESTINAL Hx Gastrointestinal Disorders: Yes (constipation) - GENITOURINARY/GYNECOLOGICAL Hx Urinary Tract Infection: Yes - PSYCHIATRIC Hx Psychophysiologic Disorder: Yes Hx Substance Use: No - SURGICAL HISTORY Hx Mastectomy: No - ANESTHESIA Hx Anesthesia: No Meds Allergies/Adverse Reactions: Allergies Allergy/AdvReac Type Severity Reaction Status Date / Time No Known Allergies Allergy Verified 05/22/18 16:26 Physical Exam - Constitutional Appears: Non-toxic, No Acute Distress, Chronically Ill - Head Exam Head Exam: ATRAUMATIC, NORMAL INSPECTION, NORMOCEPHALIC - Eye Exam Eye Exam: EOMI, Normal appearance. absent: Conjunctival injection, Scleral icterus - ENT Exam ENT Exam: Mucous Membranes Moist - Neck Exam Neck exam: Positive for: Normal Inspection. Negative for: Lymphadenopathy - Respiratory Exam Respiratory Exam: Decreased Breath Sounds, NORMAL BREATHING PATTERN. absent: Accessory Muscle Use, Respiratory Distress - Cardiovascular Exam Cardiovascular Exam: +S1, +S2 - GI/Abdominal Exam GI & Abdominal Exam: Normal Bowel Sounds, Soft. absent: Distended, Firm, Guarding, Rigid, Tenderness - Exam Additional comments: holland in place- hematuria noted - Extremities Exam Extremities exam: Positive for: normal capillary refill, normal inspection, pedal pulses present. Negative for: pedal edema - Neurological Exam Neurological exam: Alert, Oriented x3 - Psychiatric Exam Psychiatric exam: Normal Affect, Normal Mood - Skin Skin Exam: Dry, Intact Results - Vital Signs Recent Vital Signs: Last Vital Signs Temp 98.2 F 05/22/18 05:34 Pulse 101 H 05/22/18 07:00 Resp 15 05/22/18 07:00 BP 128/69 05/22/18 07:00 Pulse Ox 95 05/22/18 07:00 - Labs Result Diagrams: 05/22/18 06:10 05/22/18 06:10 Labs: Laboratory Results - last 24 hr 05/22/18 05/22/18 05/22/18 06:10 06:10 06:10 WBC 12.9 H RBC 4.07 Hgb 12.4 L D Hct 36.5 L MCV 89.7 D MCH 30.5 MCHC 34.0 RDW 13.0 Plt Count 196 MPV 8.9 Gran % 81.8 H Lymph % (Auto) 13.0 L Motley % (Auto) 5.1 Eos % (Auto) 0.1 L Baso % (Auto) 0.0 Gran # 10.53 H Lymph # (Auto) 1.7 Motley # (Auto) 0.7 H Eos # (Auto) 0.0 Baso # (Auto) 0.00 pO2 VBG pH VBG pCO2 VBG HCO3 VBG Total CO2 VBG O2 Sat (Calc) VBG Base Excess VBG Potassium Lactate FiO2 Sodium 126 L Potassium 5.5 H Chloride 91 L Carbon Dioxide 21 Anion Gap 19 BUN 41 H Creatinine 0.9 Est GFR ( Amer) > 60 Est GFR (Non-Af Amer) > 60 Random Glucose 171 H Calcium 9.3 Total Bilirubin 0.5 AST 32 ALT 17 Alkaline Phosphatase 145 H Total Protein 8.0 Albumin 4.3 Globulin 3.8 Albumin/Globulin Ratio 1.1 Venous Blood Potassium Urine Color Red Urine Appearance Cloudy Urine pH 8.5 Ur Specific Plain 1.020 Urine Protein 100 H Urine Glucose (UA) Negative Urine Ketones Negative Urine Blood Large H Urine Nitrate Positive H Urine Bilirubin Negative Urine Urobilinogen 0.2 Ur Leukocyte Esterase Moderate H Urine RBC 2 - 5 H Urine WBC 15 - 20 H Ur Epithelial Cells 0 - 2 Urine Bacteria Many 05/22/18 07:25 WBC RBC Hgb Hct MCV MCH MCHC RDW Plt Count MPV Gran % Lymph % (Auto) Motley % (Auto) Eos % (Auto) Baso % (Auto) Gran # Lymph # (Auto) Motley # (Auto) Eos # (Auto) Baso # (Auto) pO2 49 VBG pH 7.36 VBG pCO2 41.0 VBG HCO3 23.2 VBG Total CO2 24.5 VBG O2 Sat (Calc) 86.9 H VBG Base Excess -2.2 L VBG Potassium 5.2 Lactate 1.6 FiO2 21.0 Sodium 123.0 L Potassium Chloride 92.0 L Carbon Dioxide Anion Gap BUN Creatinine Est GFR ( Amer) Est GFR (Non-Af Amer) Random Glucose Calcium Total Bilirubin AST ALT Alkaline Phosphatase Total Protein Albumin Globulin Albumin/Globulin Ratio Venous Blood Potassium 5.2 Urine Color Urine Appearance Urine pH Ur Specific Plain Urine Protein Urine Glucose (UA) Urine Ketones Urine Blood Urine Nitrate Urine Bilirubin Urine Urobilinogen Ur Leukocyte Esterase Urine RBC Urine WBC Ur Epithelial Cells Urine Bacteria Assessment & Plan - Assessment and Plan (Free Text) Assessment: 1. Sepsis likely secondary to complicated UTI with indwelling holland catheter 2. Delirium likely secondary to UTI 3. Abdominal pain likely secondary to urinary retention 4. Chronic indwelling holland catheter 5. Prostate ca on Lupro monthly 6. Hyponatremia 7. Gross hematuria 8. Hyperkalemia 9. Chronic pain 10. Seizure disorder 11. Wheelchair bound 12. Glaucoma Plan: Patient's blood work, vitals, and imaging noted. Patient has blood and urine cultures pending. Merrem and Vancomycin started as per ID for suspected UTI. Procalcitonin <0.05. CXR unremarkable. Will monitor patient closely for temp. If patient becomes delirious recommend redirection. Monitor patient's Is and Os strictly. In light of patient's hyponatremia- f/u Urine Na, Urine Osm, Serum Osm. Monitor patient potassium. Continue patient's tegretol for seizure disorder. Seizure precautions and prn ativan in place. Urology consulted for gross hematuria with history of chronic indwelling holland. Patient's fentanyl patch on hold at this time as it is changed every 72 hours- last change was 05/21/17. PT eval placed for deconditioning. Patient HoB above 30 degrees and fall risk protocol in place. HHD diet ordered. Will continue to monitor patient closely. Discussed with Dr. Catalino Corea PGY3 <Kenny Bae - Last Filed: 05/22/18 20:32> Results - Vital Signs Recent Vital Signs: Last Vital Signs Temp 98.6 F 05/22/18 08:30 Pulse 10 L 05/22/18 19:21 Resp 18 05/22/18 19:21 BP 139/52 L 05/22/18 08:30 Pulse Ox 96 05/22/18 08:30 - Labs Result Diagrams: 05/22/18 06:10 05/22/18 06:10 Labs: Laboratory Results - last 24 hr 05/22/18 05/22/18 05/22/18 06:10 06:10 06:10 WBC 12.9 H RBC 4.07 Hgb 12.4 L D Hct 36.5 L MCV 89.7 D MCH 30.5 MCHC 34.0 RDW 13.0 Plt Count 196 MPV 8.9 Gran % 81.8 H Lymph % (Auto) 13.0 L Motley % (Auto) 5.1 Eos % (Auto) 0.1 L Baso % (Auto) 0.0 Gran # 10.53 H Lymph # (Auto) 1.7 Motley # (Auto) 0.7 H Eos # (Auto) 0.0 Baso # (Auto) 0.00 pO2 VBG pH VBG pCO2 VBG HCO3 VBG Total CO2 VBG O2 Sat (Calc) VBG Base Excess VBG Potassium Glucose Lactate FiO2 Sodium 126 L Potassium 5.5 H Chloride 91 L Carbon Dioxide 21 Anion Gap 19 BUN 41 H Creatinine 0.9 Est GFR ( Amer) > 60 Est GFR (Non-Af Amer) > 60 Random Glucose 171 H Serum Osmolality Calcium 9.3 Total Bilirubin 0.5 AST 32 ALT 17 Alkaline Phosphatase 145 H Total Protein 8.0 Albumin 4.3 Globulin 3.8 Albumin/Globulin Ratio 1.1 Procalcitonin Venous Blood Potassium Urine Color Red Urine Appearance Cloudy Urine pH 8.5 Ur Specific Plain 1.020 Urine Protein 100 H Urine Glucose (UA) Negative Urine Ketones Negative Urine Blood Large H Urine Nitrate Positive H Urine Bilirubin Negative Urine Urobilinogen 0.2 Ur Leukocyte Esterase Moderate H Urine RBC 2 - 5 H Urine WBC 15 - 20 H Ur Epithelial Cells 0 - 2 Urine Bacteria Many Urine Osmolality Ur Random Sodium 05/22/18 05/22/18 05/22/18 06:10 07:25 07:25 WBC RBC Hgb Hct MCV MCH MCHC RDW Plt Count MPV Gran % Lymph % (Auto) Motley % (Auto) Eos % (Auto) Baso % (Auto) Gran # Lymph # (Auto) Motley # (Auto) Eos # (Auto) Baso # (Auto) pO2 49 VBG pH 7.36 VBG pCO2 41.0 VBG HCO3 23.2 VBG Total CO2 24.5 VBG O2 Sat (Calc) 86.9 H VBG Base Excess -2.2 L VBG Potassium 5.2 Glucose TEST NOT PERFORMED Lactate 1.6 FiO2 21.0 Sodium 123.0 L Potassium Chloride 92.0 L Carbon Dioxide Anion Gap BUN Creatinine Est GFR ( Amer) Est GFR (Non-Af Amer) Random Glucose Serum Osmolality 273 Calcium Total Bilirubin AST ALT Alkaline Phosphatase Total Protein Albumin Globulin Albumin/Globulin Ratio Procalcitonin < 0.05 L Venous Blood Potassium 5.2 Urine Color Urine Appearance Urine pH Ur Specific Plain Urine Protein Urine Glucose (UA) Urine Ketones Urine Blood Urine Nitrate Urine Bilirubin Urine Urobilinogen Ur Leukocyte Esterase Urine RBC Urine WBC Ur Epithelial Cells Urine Bacteria Urine Osmolality Ur Random Sodium 05/22/18 15:37 WBC RBC Hgb Hct MCV MCH MCHC RDW Plt Count MPV Gran % Lymph % (Auto) Motley % (Auto) Eos % (Auto) Baso % (Auto) Gran # Lymph # (Auto) Motley # (Auto) Eos # (Auto) Baso # (Auto) pO2 VBG pH VBG pCO2 VBG HCO3 VBG Total CO2 VBG O2 Sat (Calc) VBG Base Excess VBG Potassium Glucose Lactate FiO2 Sodium Potassium Chloride Carbon Dioxide Anion Gap BUN Creatinine Est GFR ( Amer) Est GFR (Non-Af Amer) Random Glucose Serum Osmolality Calcium Total Bilirubin AST ALT Alkaline Phosphatase Total Protein Albumin Globulin Albumin/Globulin Ratio Procalcitonin Venous Blood Potassium Urine Color Urine Appearance Urine pH Ur Specific Plain Urine Protein Urine Glucose (UA) Urine Ketones Urine Blood Urine Nitrate Urine Bilirubin Urine Urobilinogen Ur Leukocyte Esterase Urine RBC Urine WBC Ur Epithelial Cells Urine Bacteria Urine Osmolality 223 L Ur Random Sodium 16 Assessment & Plan - Assessment and Plan (Free Text) Plan: Pt seen and examined by me. I have reviewed the note of the medical review coordinator and I agree with it. I have discussed the assessment and plan with the resident. I have reviewed the medications and the last labs.Pt with sepsis and will be on Merrem and Vanco. ID will be consulted. CXR was reviewed. Pt with Delerium due to sepsis and UTI. Pt with hyponatremia and will need further workup. He will continue with Tegretol for his Sz d/o. Holland was changed. Spoke to son at bedside. He is home bound. He has hx of Prostate Ca and has seen urology and followed up.
[2018-05-22] MEDS ORDERED: Sodium Chloride 0.9% 1,000 ML IV SCH (08:15)
[2018-05-22] MEDS ORDERED: Vancomycin 1.5 GM in Sodium Chloride 0.9% 500 ML IVPB ONE (09:35)
[2018-05-22] MEDS ORDERED: cefTRIAXone 1 gm 1 GM/100 ML BAG IVPB SCH (10:00)
--- NOTE | 2018-05-22 13:41 | CP.PCM.CON ---
History of Present Illness - History of Present Illness History of Present Illness: 88 year old male with PMH of prostate cancer with metastasis on Lupron treatment (hormonal treatment) and radiation therapy to the pelvic area and lumbar spine, seizure disorder, glaucoma, history of Klebsiella UTI, history of Proteus b acteremia was [place] [facility] [place] of lower abdominal pain for the past 1-2 days, associated with dark colored urine. The patient denies diarrhea, no constipation, no fever or chills, no nausea or vomiting, no headache or dizziness, no chest pain, no SOB, no sore throat, no rhinorrhea, no dysphagia, no easy bruisability. Urinalysis is showing hematuria and pyuria. Infectious diseases consult is requested to further evaluate and manage. Past Medical and surgical history: as above Personal and social history: denies alcohol abuse, no illicit drug use, no smokin family history: non-contributory Review of Systems - Review of Systems All systems: reviewed and no additional remarkable complaints except (as per HPI) Past Patient History - Infectious Disease Hx of Infectious Diseases: None - Past Social History Smoking Status: Former Smoker - CARDIAC Hx Pacemaker: No - PULMONARY Hx Respiratory Disorders: Yes (H/O SMOKING CIGARETTES) Other/Comment: EMPYEMA/SARCOIDOSIS - NEUROLOGICAL Hx Dizziness: Yes (syncope) Hx Seizures: Yes (last seizure 20 yrs ago) - HEENT Hx Cataracts: Yes (with bilateral sx) - RENAL Hx Chronic Kidney Disease: Yes Other/Comment: chronic holland-Prostate ca. - ENDOCRINE/METABOLIC Hx Endocrine Disorders: No - HEMATOLOGICAL/ONCOLOGICAL Hx Cancer: Yes (prostate) - INTEGUMENTARY Hx Dermatological Problems: Yes Other/Comment: 218 bilateral le edema +2 more to right .Pitting with dry thin scaly flakes. - MUSCULOSKELETAL/RHEUMATOLOGICAL Hx Falls: Yes - GASTROINTESTINAL Hx Gastrointestinal Disorders: Yes (constipation) - GENITOURINARY/GYNECOLOGICAL Hx Urinary Tract Infection: Yes - PSYCHIATRIC Hx Psychophysiologic Disorder: Yes Hx Substance Use: No - SURGICAL HISTORY Hx Mastectomy: No - ANESTHESIA Hx Anesthesia: No Meds Allergies/Adverse Reactions: Allergies Allergy/AdvReac Type Severity Reaction Status Date / Time No Known Allergies Allergy Verified 01/27/18 21:18 - Medications Medications: Current Medications Carbamazepine (Tegretol) 200 mg PO TID TARA; Protocol Sodium Chloride (Sodium Chloride 0.9%) 1,000 mls @ 60 mls/hr IV .[id number] TARA Vancomycin HCl 1.5 gm/ Sodium (Chloride) 500 mls @ 167 mls/hr IVPB ONCE ONE; Protocol Stop: 05/22/18 12:34 Meropenem (Merrem Iv 1 Gm Premix) 50 mls @ 100 mls/hr IVPB Q8 TARA; Protocol Physical Exam - Constitutional Appears: Non-toxic, No Acute Distress, Chronically Ill - Head Exam Head Exam: NORMAL INSPECTION - ENT Exam ENT Exam: Mucous Membranes Moist - Neck Exam Neck exam: Negative for: Lymphadenopathy, Meningismus - Respiratory Exam Respiratory Exam: absent: Rales, Rhonchi - Cardiovascular Exam Cardiovascular Exam: +S1, +S2 - GI/Abdominal Exam GI & Abdominal Exam: Soft, Tenderness (mild, lower quadrants). absent: Distended, Firm, Guarding, Rebound Additional comments: indwelling Holland catheter in place, with dark colored urine Results - Vital Signs Recent Vital Signs: Last Vital Signs Temp 98.6 F 05/22/18 08:30 Pulse 100 H 05/22/18 08:30 Resp 18 05/22/18 08:30 BP 139/52 L 05/22/18 08:30 Pulse Ox 96 05/22/18 08:30 - Labs Result Diagrams: 05/22/18 06:10 05/22/18 06:10 Labs: Laboratory Results - last 24 hr 05/22/18 05/22/18 05/22/18 06:10 06:10 06:10 WBC 12.9 H RBC 4.07 Hgb 12.4 L D Hct 36.5 L MCV 89.7 D MCH 30.5 MCHC 34.0 RDW 13.0 Plt Count 196 MPV 8.9 Gran % 81.8 H Lymph % (Auto) 13.0 L Eddy % (Auto) 5.1 Eos % (Auto) 0.1 L Baso % (Auto) 0.0 Gran # 10.53 H Lymph # (Auto) 1.7 Eddy # (Auto) 0.7 H Eos # (Auto) 0.0 Baso # (Auto) 0.00 pO2 VBG pH VBG pCO2 VBG HCO3 VBG Total CO2 VBG O2 Sat (Calc) VBG Base Excess VBG Potassium Glucose Lactate FiO2 Sodium 126 L Potassium 5.5 H Chloride 91 L Carbon Dioxide 21 Anion Gap 19 BUN 41 H Creatinine 0.9 Est GFR ( Amer) > 60 Est GFR (Non-Af Amer) > 60 Random Glucose 171 H Calcium 9.3 Total Bilirubin 0.5 AST 32 ALT 17 Alkaline Phosphatase 145 H Total Protein 8.0 Albumin 4.3 Globulin 3.8 Albumin/Globulin Ratio 1.1 Venous Blood Potassium Urine Color Red Urine Appearance Cloudy Urine pH 8.5 Ur Specific Charlotte 1.020 Urine Protein 100 H Urine Glucose (UA) Negative Urine Ketones Negative Urine Blood Large H Urine Nitrate Positive H Urine Bilirubin Negative Urine Urobilinogen 0.2 Ur Leukocyte Esterase Moderate H Urine RBC 2 - 5 H Urine WBC 15 - 20 H Ur Epithelial Cells 0 - 2 Urine Bacteria Many 05/22/18 07:25 WBC RBC Hgb Hct MCV MCH MCHC RDW Plt Count MPV Gran % Lymph % (Auto) Eddy % (Auto) Eos % (Auto) Baso % (Auto) Gran # Lymph # (Auto) Eddy # (Auto) Eos # (Auto) Baso # (Auto) pO2 49 VBG pH 7.36 VBG pCO2 41.0 VBG HCO3 23.2 VBG Total CO2 24.5 VBG O2 Sat (Calc) 86.9 H VBG Base Excess -2.2 L VBG Potassium 5.2 Glucose TEST NOT PERFORMED Lactate 1.6 FiO2 21.0 Sodium 123.0 L Potassium Chloride 92.0 L Carbon Dioxide Anion Gap BUN Creatinine Est GFR ( Amer) Est GFR (Non-Af Amer) Random Glucose Calcium Total Bilirubin AST ALT Alkaline Phosphatase Total Protein Albumin Globulin Albumin/Globulin Ratio Venous Blood Potassium 5.2 Urine Color Urine Appearance Urine pH Ur Specific Charlotte Urine Protein Urine Glucose (UA) Urine Ketones Urine Blood Urine Nitrate Urine Bilirubin Urine Urobilinogen Ur Leukocyte Esterase Urine RBC Urine WBC Ur Epithelial Cells Urine Bacteria Assessment & Plan - Assessment and Plan (Free Text) Plan: Assessment systemic inflammatory response syndrome, consider sepsis due to complicated UTI in this patient with indwelling Holland catheter and metastatic prostate cancer history of Proteus bacteremia, source unclear, concerned about intra-abdominal infection history of UTI in this patient with prostate cancer with metastasis history of Klebsiella urinary tract infection Mechanical fall, etiology to be determined prostate cancer on Lupron treatment once a month (hormonal treatment) seizure disorder glaucoma Plan started Vancomycin and Merrem pending blood and urine cx would recommends Urology evaluation because of the dark colored urine will monitor clinically
--- NOTE | 2018-05-22 13:44 | RAD ---
Date of service: 05/22/2018 PROCEDURE: CHEST RADIOGRAPH, 1 VIEW HISTORY: r/o pneumonia COMPARISON: 01/27/2018 FINDINGS: LUNGS: Clear. PLEURA: No pneumothorax or pleural fluid seen. CARDIOVASCULAR: No aortic atherosclerotic calcification present. Mild cardiomegaly OSSEOUS STRUCTURES: No significant abnormalities. VISUALIZED UPPER ABDOMEN: Normal. OTHER FINDINGS: None. IMPRESSION: No active disease.
[2018-05-22] MEDS ORDERED: Meropenem IV 1 gm in NS 50 ML IVPB SCH (14:00)
[2018-05-22] MEDS: Meropenem IV 1 gm in NS 1 GM/50 ML BAG IVPB SCH ×2 (14:56→21:21)
[2018-05-22 16:30] LABS: OSMOLALITY,URINE 223 mosm/kg (300-1000)
[2018-05-22 19:49] VITALS: BMI 27.6
[2018-05-22] MEDS ORDERED: Pneumococcal 23-Valent Vaccine IM ONE (19:49)
[2018-05-22] MEDS ORDERED: Influenza Vaccine 60 mcg/0.5 mL SYR (4YR UP) IM ONE (19:49)
[2018-05-23] MEDS: Meropenem IV 1 gm in NS 1 GM/50 ML BAG IVPB SCH ×3 (05:00→21:11)
[2018-05-23 07:07] LABS: BASO # 0.01 K/mm3 (0.0-2.0); BASO % 0.2 % (0.0-3.0); EOS % 0.2 % (1.5-5.0); GRAN # 3.27 (1.4-6.5); GRAN % 49.4 % (50.0-68.0); LYMPH # 2.8 (1.2-3.4); LYMPH % 42.2 % (22.0-35.0); MEAN CELL VOLUME 91.7 fl (80.0-105.0); MEAN CORPUSCULAR HEMOGLOBIN 30.5 pg (25.0-35.0); MEAN CORPUSCULAR HGB CONC 33.2 g/dl (31.0-37.0); MEAN PLATELET VOLUME 8.9 fl (7.0-11.0); MONO # 0.5 (0.1-0.6); RBC 3.15 10^6/uL (3.5-6.1); RED CELL DISTRIBUTION WIDTH 13.3 % (11.5-14.5); WHITE BLOOD COUNT 6.6 10^3/uL (4.5-11.0)
[2018-05-23 07:32] LABS: HEMOGLOBIN 9.6 g/dL (14.0-18.0)
[2018-05-23 07:36] LABS: ALBUMIN 3.5 g/dL (3.0-4.8); ALT/SGPT 26 U/L (7-56); AST/SGOT 35 U/L (17-59); BLOOD UREA NITROGEN 34 mg/dL (7-21); GFR NON-AFRICAN AMERICAN > 60
[2018-05-23] MEDS: Pantoprazole 40 mg EC Tab PO SCH (08:10)
--- NOTE | 2018-05-23 13:49 | CP.PCM.PN ---
Subjective - Date & Time of Evaluation Date of Evaluation: 05/23/18 Time of Evaluation: 10:10 - Subjective Subjective: Comfortable in bed, not in distress, still with dark urine. No fevers. Objective - Vital Signs/Intake and Output Vital Signs (last 24 hours): Temp Pulse Resp BP Pulse Ox 98.6 F 100 H 18 139/52 L 96 05/22/18 08:30 05/22/18 08:30 05/22/18 08:30 05/22/18 08:30 05/22/18 08:30 - Medications Medications: Current Medications Carbamazepine (Tegretol) 200 mg PO TID ON LICENSE OF [facility]; Protocol Last Admin: 05/22/18 11:38 Dose: 200 mg Sodium Chloride (Sodium Chloride 0.9%) 1,000 mls @ 60 mls/hr IV .[id number] TARA Last Admin: 05/22/18 11:40 Dose: 60 mls/hr Meropenem (Merrem Iv 1 Gm Premix) 1 gm in 50 mls @ 100 mls/hr IVPB Q8 TARA; Protocol - Labs Labs: 05/22/18 06:10 05/22/18 06:10 - Constitutional Appears: No Acute Distress, Chronically Ill - Head Exam Head Exam: NORMAL INSPECTION - Respiratory Exam Respiratory Exam: Decreased Breath Sounds - Cardiovascular Exam Cardiovascular Exam: +S1, +S2 - GI/Abdominal Exam GI & Abdominal Exam: Soft. absent: Tenderness Assessment and Plan - Assessment and Plan (Free Text) Plan: Assessment consider sepsis due to complicated UTI in this patient with indwelling Bray catheter and metastatic prostate cancer, growing gram positive cocci and gram negative bacilli in the urine history of Proteus bacteremia, source unclear, concerned about intra-abdominal infection history of UTI in this patient with prostate cancer with metastasis history of Klebsiella urinary tract infection Mechanical fall, etiology to be determined prostate cancer on Lupron treatment once a month (hormonal treatment) seizure disorder glaucoma Plan continue Vancomycin and Merrem day 2 pending identification and sensitivities of the bacteria in the urine; blood cx are negative so far follow up Urology evaluation and recommendations will continue to monitor clinically
[2018-05-23] MEDS: Vancomycin 1gm in NS 250ml 1 GM/250 ML BAG IVPB SCH (14:58)
[2018-05-24] MEDS: Vancomycin 1gm in NS 250ml 1 GM/250 ML BAG IVPB SCH (02:31)
[2018-05-24] MEDS: Meropenem IV 1 gm in NS 1 GM/50 ML BAG IVPB SCH (05:38)
[2018-05-24 07:07] LABS: BASO # 0.01 K/mm3 (0.0-2.0); BASO % 0.2 % (0.0-3.0); EOS % 0.5 % (1.5-5.0); HEMOGLOBIN 10.3 g/dL (14.0-18.0); LYMPH # 2.3 (1.2-3.4); LYMPH % 40.5 % (22.0-35.0); MEAN CELL VOLUME 92.9 fl (80.0-105.0); MEAN CORPUSCULAR HEMOGLOBIN 30.7 pg (25.0-35.0); MEAN PLATELET VOLUME 8.9 fl (7.0-11.0); MONO # 0.7 (0.1-0.6); MONO % 12.3 % (1.0-6.0); RBC 3.36 10^6/uL (3.5-6.1); RED CELL DISTRIBUTION WIDTH 13.2 % (11.5-14.5); WHITE BLOOD COUNT 5.6 10^3/uL (4.5-11.0)
[2018-05-24 07:42] LABS: ALBUMIN 3.7 g/dL (3.0-4.8); ALT/SGPT 28 U/L (7-56); AST/SGOT 42 U/L (17-59); BLOOD UREA NITROGEN 32 mg/dL (7-21); CALCIUM 9.1 mg/dL (8.4-10.5); GFR NON-AFRICAN AMERICAN > 60
--- NOTE | 2018-05-24 08:24 | CP.PCM.PN ---
<Sana Corea - Last Filed: 05/24/18 13:06> Subjective - Date & Time of Evaluation Date of Evaluation: 05/24/18 Time of Evaluation: 07:45 - Subjective Subjective: Pgy3 Medicine progress note for Dr. Bae Patient seen and examined at bedside. Overnight patient spiked temp 101.1F as per nursing. Patient stated he was unable to sleep well. He has good UO from holland and abdominal pain has resolved. Urine is clear and draining well. Denied acute complaints fever, chills, headache, dizziness, chest pain, palpitations, SOB, cough, abd pain, nausea, vomiting, bowel complaints, pain/swelling legs bilaterally. Objective - Vital Signs/Intake and Output Vital Signs (last 24 hours): Temp Pulse Resp BP Pulse Ox 101.1 F H 108 H 18 130/48 L 95 05/23/18 22:00 05/23/18 22:00 05/23/18 22:00 05/23/18 22:00 05/23/18 22:00 Intake and Output: 05/24/18 05/24/18 06:59 18:59 Intake Total 300 Output Total 1500 Balance -1200 - Medications Medications: Current Medications Carbamazepine (Tegretol) 200 mg PO TID TARA; Protocol Last Admin: 05/23/18 18:02 Dose: 200 mg Fentanyl (Duragesic) 1 patch TD Q72 TARA Last Admin: 05/23/18 15:34 Dose: 1 patch Meropenem (Merrem Iv 1 Gm Premix) 1 gm in 50 mls @ 100 mls/hr IVPB Q8 TARA; Protocol Last Admin: 05/24/18 05:38 Dose: 100 mls/hr Vancomycin HCl (Vancomycin 1gm) 1 gm in 250 mls @ 167 mls/hr IVPB Q12H TARA; Protocol Last Admin: 05/24/18 02:31 Dose: 167 mls/hr Lorazepam (Ativan) 1 mg IVP Q6H PRN; Protocol PRN Reason: Seizure activity Pantoprazole Sodium (Protonix Ec Tab) 40 mg PO ACB TARA Last Admin: 05/23/18 08:10 Dose: 40 mg - Labs Labs: 05/24/18 06:35 05/24/18 06:35 - Constitutional Appears: Non-toxic, No Acute Distress - Head Exam Head Exam: ATRAUMATIC, NORMAL INSPECTION, NORMOCEPHALIC - Eye Exam Eye Exam: EOMI, Normal appearance, PERRL. absent: Conjunctival injection, Scleral icterus - ENT Exam ENT Exam: Mucous Membranes Moist - Neck Exam Neck Exam: absent: Lymphadenopathy - Respiratory Exam Respiratory Exam: Decreased Breath Sounds, Clear to Ausculation Bilateral, NORMAL BREATHING PATTERN. absent: Respiratory Distress - Cardiovascular Exam Cardiovascular Exam: +S1, +S2. absent: Bradycardia, Tachycardia - GI/Abdominal Exam GI & Abdominal Exam: Soft, Normal Bowel Sounds. absent: Firm, Guarding, Rigid, Tenderness - Extremities Exam Extremities Exam: Normal Capillary Refill. absent: Calf Tenderness, Pedal Edema - Neurological Exam Neurological Exam: Alert, Awake, CN II-XII Intact - Psychiatric Exam Psychiatric exam: Normal Affect, Normal Mood - Skin Skin Exam: Dry, Intact, Normal Color, Warm Assessment and Plan - Assessment and Plan (Free Text) Assessment: 1. Sepsis likely secondary to complicated UTI with indwelling holland catheter- improving 2. Acute UTI 2/2 Proteus Mirabilis and E. Faecalis 3. Delirium likely secondary to UTI- resolved 4. Abdominal pain likely secondary to urinary retention- resolved 5. Chronic indwelling holland catheter 6. Prostate ca on Lupro monthly 7. Chronic pain 8. Seizure disorder 9. Wheelchair bound 10. Glaucoma Plan: In light of temp overnight repeat blood cultures x 2, urine culture, and CXR ordered. Will follow up. Urine culture on admission +Proteus and +E. Faecalis. Patient's abx adjusted as per ID. Started on Zosyn Day 1 of 10. Patient received 3 days of Vanc and Merrem. Procalcitonin <0.05. CXR on admission unremarkable. Will monitor patient closely for temp. If patient becomes delirious recommend redirection. Monitor patient's Is and Os strictly. Continue patient's tegretol for seizure disorder. Seizure precautions and prn ativan in place. Urology consulted- f/u reccs. Patent pain controlled with home Fentanyl patch. I spoke to son Tj this morning and updated him on patient course. PT on board. HoB above 30 degrees and fall risk protocol in place. HHD diet ordered. Will continue to monitor patient closely. Discussed with Dr. Catalino Corea PGY3 <Kenny Bae S - Last Filed: 05/24/18 19:45> Objective - Vital Signs/Intake and Output Vital Signs (last 24 hours): Temp Pulse Resp BP Pulse Ox 97.6 F 95 H 18 141/70 97 05/24/18 06:00 05/24/18 06:00 05/24/18 06:00 05/24/18 06:00 05/24/18 06:00 - Medications Medications: Current Medications Carbamazepine (Tegretol) 200 mg PO TID TARA; Protocol Last Admin: 05/24/18 17:51 Dose: 200 mg Fentanyl (Duragesic) 1 patch TD Q72 TARA Last Admin: 05/23/18 15:34 Dose: 1 patch Piperacillin Sod/Tazobactam Sod (Zosyn 3.375 In Ns 100ml) 100 mls @ 25 mls/hr IVPB Q8 TARA; Protocol Stop: 06/03/18 14:01 Last Admin: 05/24/18 14:54 Dose: 25 mls/hr Lorazepam (Ativan) 1 mg IVP Q6H PRN; Protocol PRN Reason: Seizure activity Pantoprazole Sodium (Protonix Ec Tab) 40 mg PO ACB [facility] Last Admin: 05/24/18 10:12 Dose: 40 mg - Labs Labs: 05/24/18 06:35 05/24/18 06:35 Assessment and Plan - Assessment and Plan (Free Text) Plan: Pt seen and examined by me. I have reviewed the note of the medical insurance biller and I agree with it. I have discussed the assessment and plan with the resident. I have reviewed the medications and the last labs. Pt with sepsis due to UTI and is on IV Vanco and Merrem. He is feeling better. No fever. Pt's delerium has improved. Hyponatremia and Hyperkalemia has improved . He has Prostate cancer and no issues at this time. Gross hematuria has improved.
[2018-05-24] MEDS: Pantoprazole 40 mg EC Tab PO SCH (10:12)
--- NOTE | 2018-05-24 12:28 | PN ---
DATE: 05/24/2018 SUBJECTIVE: The patient is seen earlier today in 561, bed 1. He is eating breakfast. No fevers, no chills. PHYSICAL EXAMINATION: VITAL SIGNS: Temperature is 97, T-max was 101.1 yesterday, heart rate of 111, respiratory rate of 18. HEENT: Unremarkable. NECK: Supple. LUNGS: Have decreased breath sounds. HEART: Normal S1, S2. ABDOMEN: Soft and nontender. LABORATORY DATA: White count of 5.6, hemoglobin of 10, platelets of 143 and the chemistries reveals a BUN of 32, creatinine of 0.5. Procalcitonin is 0.05. Urinalysis is noted and microbiology reveals urine culture with Proteus mirabilis sensitive to Cipro, ertapenem, gentamicin, meropenem, Zosyn and Enterococcus which is sensitive to ampicillin, that was 05/22/2018. Blood cultures are no growth. Review of orders reveals the patient to be on IV vancomycin and meropenem. ASSESSMENT AND PLAN: This is an 88-year-old male who is comfortable and seen earlier today, having breakfast, doing well. Sepsis with a complicated urinary tract infection with Proteus and Enterococcus with metastatic prostate cancer with a history of Proteus bacteremia, history of prostate cancer, day #3 of vancomycin, meropenem, we will discontinue the vancomycin and meropenem and treat with Zosyn which has both the Enterococcus and Proteus activity. Evangelist García MD
--- NOTE | 2018-05-24 13:01 | CP.PCM.PN ---
<AnmolSana real - Last Filed: 05/24/18 12:57> Subjective - Date & Time of Evaluation Date of Evaluation: 05/23/18 Time of Evaluation: 07:00 - Subjective Subjective: Pgy3 Medicine progress note for Dr. Bae Patient seen and examined at bedside. Nursing reported no acute events overnight. Patient making good clear urine and denied fever, chills, headache, dizziness, chest pain, palpitations, SOB, cough, abd pain, nausea, vomiting, bowel complaints, pain/swelling legs bilaterally. Objective - Vital Signs/Intake and Output Vital Signs (last 24 hours): Temp Pulse Resp BP Pulse Ox 97.6 F 95 H 18 141/70 97 05/24/18 06:00 05/24/18 06:00 05/24/18 06:00 05/24/18 06:00 05/24/18 06:00 Intake and Output: 05/24/18 05/24/18 06:59 18:59 Intake Total 300 Output Total 1500 Balance -1200 - Medications Medications: Current Medications Carbamazepine (Tegretol) 200 mg PO TID TARA; Protocol Last Admin: 05/24/18 10:24 Dose: 200 mg Fentanyl (Duragesic) 1 patch TD Q72 TARA Last Admin: 05/23/18 15:34 Dose: 1 patch Piperacillin Sod/Tazobactam Sod (Zosyn 3.375 In Ns 100ml) 100 mls @ 25 mls/hr IVPB Q8 TARA; Protocol Stop: 06/03/18 14:01 Lorazepam (Ativan) 1 mg IVP Q6H PRN; Protocol PRN Reason: Seizure activity Pantoprazole Sodium (Protonix Ec Tab) 40 mg PO ACB TARA Last Admin: 05/24/18 10:12 Dose: 40 mg - Labs Labs: 05/24/18 06:35 05/24/18 06:35 - Additional Findings Additional findings: - Constitutional Appears: Non-toxic, No Acute Distress - Head Exam Head Exam: ATRAUMATIC, NORMAL INSPECTION, NORMOCEPHALIC - Eye Exam Eye Exam: EOMI, Normal appearance, PERRL. absent: Conjunctival injection, Scleral icterus - ENT Exam ENT Exam: Mucous Membranes Moist - Neck Exam Neck Exam: absent: Lymphadenopathy - Respiratory Exam Respiratory Exam: Decreased Breath Sounds, Clear to Ausculation Bilateral, NORMAL BREATHING PATTERN. absent: Respiratory Distress - Cardiovascular Exam Cardiovascular Exam: +S1, +S2. absent: Bradycardia, Tachycardia - GI/Abdominal Exam GI & Abdominal Exam: Soft, Normal Bowel Sounds. absent: Firm, Guarding, Rigid, Tenderness - Extremities Exam Extremities Exam: Normal Capillary Refill. absent: Calf Tenderness, Pedal Edema - Neurological Exam Neurological Exam: Alert, Awake, CN II-XII Intact - Psychiatric Exam Psychiatric exam: Normal Affect, Normal Mood - Skin Skin Exam: Dry, Intact, Normal Color, Warm Assessment and Plan - Assessment and Plan (Free Text) Assessment: 1. Sepsis likely secondary to complicated UTI with indwelling holland catheter- improving 2. Acute UTI pending culture and sensitivity 3. Delirium likely secondary to UTI- improved 4. Abdominal pain likely secondary to urinary retention- resolved 5. Chronic indwelling holland catheter 6. Prostate ca on Lupro monthly 7. Chronic pain 8. Seizure disorder 9. Wheelchair bound 10. Glaucoma Plan: Patient's blood work, vitals, and imaging noted. Continue Merrem and Vancomycin as per ID. Patient blood cultures prelim negative x 2 and urine culture +Proteus and +E. Faecalis pending sensitivity. Procalcitonin <0.05. CXR unremarkable. Will monitor patient closely for temp. If patient becomes delirious recommend redirection. Monitor patient's Is and Os strictly. Continue patient's tegretol for seizure disorder. Seizure precautions and prn ativan in place. Urology consulted- f/u reccs. Patent home dose Fentanyl patch restarted after confirming with son. PT on board. HoB above 30 degrees and fall risk protocol in place. HHD diet ordered. Will continue to monitor patient closely. Discussed with Dr. Catalino Corea PGY3 <Kenny Bae S - Last Filed: 05/24/18 19:50> Objective - Vital Signs/Intake and Output Vital Signs (last 24 hours): Temp Pulse Resp BP Pulse Ox 97.6 F 95 H 18 141/70 97 05/24/18 06:00 05/24/18 06:00 05/24/18 06:00 05/24/18 06:00 05/24/18 06:00 - Medications Medications: Current Medications Carbamazepine (Tegretol) 200 mg PO TID COUNT INCLUDES THE [facility]; Protocol Last Admin: 05/24/18 17:51 Dose: 200 mg Fentanyl (Duragesic) 1 patch TD Q72 TARA Last Admin: 05/23/18 15:34 Dose: 1 patch Piperacillin Sod/Tazobactam Sod (Zosyn 3.375 In Ns 100ml) 100 mls @ 25 mls/hr IVPB Q8 TARA; Protocol Stop: 06/03/18 14:01 Last Admin: 05/24/18 14:54 Dose: 25 mls/hr Lorazepam (Ativan) 1 mg IVP Q6H PRN; Protocol PRN Reason: Seizure activity Pantoprazole Sodium (Protonix Ec Tab) 40 mg PO ACB COUNT INCLUDES THE [facility] Last Admin: 05/24/18 10:12 Dose: 40 mg - Labs Labs: 05/24/18 06:35 05/24/18 06:35 Assessment and Plan - Assessment and Plan (Free Text) Plan: Pt seen and examined by me. I have reviewed the note of the lpn medical assistant and I agree with it. I have discussed the assessment and plan with the resident. I have reviewed the medications and the last labs. Pt with sepsis due to UTI that has improved. He will continue with Tegretol for his seizures. The hyperkalemia nd hyponatremia have improved. Pt in on Fentanyl patch for pain. Eating well.
[2018-05-24] MEDS: Piperacillin/Tazobact 3.375 gm 100 ML IVPB SCH ×2 (14:54→21:13)
--- NOTE | 2018-05-24 15:36 | RAD ---
Date of service: 05/24/2018 HISTORY: spiked temp overnight COMPARISON: Comparison is made with 05/22/2018 TECHNIQUE: Chest PA and lateral FINDINGS: LUNGS: No significant interval changes noted. Again seen are small opacities at the left lower lung. PLEURA: No significant pleural effusion identified. No pneumothorax apparent. CARDIOVASCULAR: No aortic atherosclerotic calcification present. Normal cardiac size. No pulmonary vascular congestion. OSSEOUS STRUCTURES: No significant abnormalities. VISUALIZED UPPER ABDOMEN: Normal. OTHER FINDINGS: None. IMPRESSION: No significant interval changes noted since the prior exam.
[2018-05-25] MEDS: Piperacillin/Tazobact 3.375 gm 100 ML IVPB SCH ×3 (05:10→22:01)
--- NOTE | 2018-05-25 07:03 | CP.PCM.PN ---
<AnmolSana real - Last Filed: 05/25/18 11:18> Subjective - Date & Time of Evaluation Date of Evaluation: 05/25/18 Time of Evaluation: 07:15 - Subjective Subjective: Pgy3 Medicine progress note for Dr. Bae Patient seen and examined at bedside. As per nursing patient was afebrile with no acute events. Patient is voiding well and abdominal discomfort has resolved. Denied acute complaints of fever, chills, headache, chest pain, SOB, abd pain, nausea, vomiting, bowel complaints, pain/swelling in his legs bilaterally. Objective - Vital Signs/Intake and Output Vital Signs (last 24 hours): Temp Pulse Resp BP Pulse Ox 97.3 F L 99 H 16 163/81 H 98 05/25/18 06:00 05/25/18 06:00 05/25/18 06:00 05/25/18 06:00 05/25/18 06:00 Intake and Output: 05/25/18 05/25/18 06:59 18:59 Intake Total 120 Output Total 1200 Balance -1080 - Medications Medications: Current Medications Carbamazepine (Tegretol) 200 mg PO TID [facility]; Protocol Last Admin: 05/24/18 17:51 Dose: 200 mg Fentanyl (Duragesic) 1 patch TD Q72 [facility] Last Admin: 05/23/18 15:34 Dose: 1 patch Piperacillin Sod/Tazobactam Sod (Zosyn 3.375 In Ns 100ml) 100 mls @ 25 mls/hr IVPB Q8 [facility]; Protocol Stop: 06/03/18 14:01 Last Admin: 05/25/18 05:10 Dose: 25 mls/hr Lorazepam (Ativan) 1 mg IVP Q6H PRN; Protocol PRN Reason: Seizure activity Last Admin: 05/24/18 21:39 Dose: 1 mg Pantoprazole Sodium (Protonix Ec Tab) 40 mg PO ACB [facility] Last Admin: 05/24/18 10:12 Dose: 40 mg - Labs Labs: 05/24/18 06:35 05/24/18 06:35 - Additional Findings Additional findings: - Constitutional Appears: Non-toxic, No Acute Distress - Head Exam Head Exam: ATRAUMATIC, NORMAL INSPECTION, NORMOCEPHALIC - Eye Exam Eye Exam: EOMI, Normal appearance, PERRL. absent: Conjunctival injection, Scleral icterus - ENT Exam ENT Exam: Mucous Membranes Moist - Neck Exam Neck Exam: absent: Lymphadenopathy - Respiratory Exam Respiratory Exam: Decreased Breath Sounds, Clear to Ausculation Bilateral, NORMAL BREATHING PATTERN. absent: Respiratory Distress - Cardiovascular Exam Cardiovascular Exam: +S1, +S2. absent: Bradycardia, Tachycardia - GI/Abdominal Exam GI & Abdominal Exam: Soft, Normal Bowel Sounds. absent: Firm, Guarding, Rigid, Tenderness - Extremities Exam Extremities Exam: Normal Capillary Refill. absent: Calf Tenderness, Pedal Edema - Neurological Exam Neurological Exam: Alert, Awake, CN II-XII Intact - Psychiatric Exam Psychiatric exam: Normal Affect, Normal Mood - Skin Skin Exam: Dry, Intact, Normal Color, Warm Assessment and Plan - Assessment and Plan (Free Text) Assessment: 1. Sepsis likely secondary to complicated UTI with indwelling holland catheter- improving 2. Acute UTI 2/2 Proteus Mirabilis and E. Faecalis 3. Delirium likely secondary to UTI- resolved 4. Abdominal pain likely secondary to urinary retention- resolved 5. Chronic indwelling holland catheter 6. Prostate ca on Lupro monthly 7. Chronic pain 8. Seizure disorder 9. Wheelchair bound 10. Glaucoma Plan: Patient's vitals, blood work, and imaging reviewed in chart. Repeat CXR no change from on admission. Pending repeat blood and urine cx from when patient spiked temp 2 days prior. Patient has been afebrile for 48 hours since. Urine culture on admission +Proteus and +E. Faecalis. Patient's abx adjusted as per ID. Started on Zosyn for 10 days. Patient received 3 days of Vanc and Merrem. Procalcitonin <0.05. Will monitor patient closely for temp. If patient becomes delirious recommend redirection. Monitor patient's Is and Os strictly. Patient has negative fluid balance. Continue patient's tegretol for seizure disorder. PRN ativan for seizures in place. Urology consulted- f/u reccs. Patent pain controlled with home Fentanyl patch. PT on board. HoB above 30 degrees and fall risk protocol in place. HHD diet ordered. GI ppx and SCDs on board. High fall risk and Seizure precautions in place. Discussed with Dr. Catalino Corea PGY3 <Kenny Bae - Last Filed: 05/25/18 11:49> Objective - Vital Signs/Intake and Output Vital Signs (last 24 hours): Temp Pulse Resp BP Pulse Ox 97.3 F L 99 H 16 163/81 H 96 05/25/18 08:30 05/25/18 08:30 05/25/18 08:30 05/25/18 08:30 05/25/18 08:30 Intake and Output: 05/25/18 05/25/18 06:59 18:59 Intake Total 120 Output Total 1200 Balance -1080 - Medications Medications: Current Medications Carbamazepine (Tegretol) 200 mg PO TID [facility]; Protocol Last Admin: 05/25/18 10:12 Dose: 200 mg Fentanyl (Duragesic) 1 patch TD Q72 [facility] Last Admin: 05/23/18 15:34 Dose: 1 patch Piperacillin Sod/Tazobactam Sod (Zosyn 3.375 In Ns 100ml) 100 mls @ 25 mls/hr IVPB Q8 [facility]; Protocol Stop: 06/03/18 14:01 Last Admin: 05/25/18 05:10 Dose: 25 mls/hr Lorazepam (Ativan) 1 mg IVP Q6H PRN; Protocol PRN Reason: Seizure activity Last Admin: 05/24/18 21:39 Dose: 1 mg Pantoprazole Sodium (Protonix Ec Tab) 40 mg PO ACB [facility] Last Admin: 05/25/18 08:22 Dose: 40 mg - Labs Labs: 05/25/18 07:30 05/25/18 07:30 Assessment and Plan - Assessment and Plan (Free Text) Plan: Pt seen and examined by me. I have reviewed the note of the medical reimbursement specialist and I agree with it. I have discussed the assessment and plan with the resident. I have reviewed the medications and the last labs.Pt with sepsis due to UTI that has improved. Pt is on Zosyn for Abx. The UCx is positive. THe pt's delerium is resolved. Hyponatremia and hyperkalemia is resolved. Pain is controlled for F entanyl patch. He is eating well.
[2018-05-25 07:47] LABS: BASO # 0.01 K/mm3 (0.0-2.0); BASO % 0.2 % (0.0-3.0); EOS % 0.5 % (1.5-5.0); HEMOGLOBIN 10.5 g/dL (14.0-18.0); LYMPH # 2.7 (1.2-3.4); LYMPH % 47.1 % (22.0-35.0); MEAN CELL VOLUME 92.6 fl (80.0-105.0); MEAN CORPUSCULAR HEMOGLOBIN 31.1 pg (25.0-35.0); MEAN CORPUSCULAR HGB CONC 33.5 g/dl (31.0-37.0); MEAN PLATELET VOLUME 9.3 fl (7.0-11.0); MONO # 0.6 (0.1-0.6); MONO % 9.7 % (1.0-6.0); RBC 3.38 10^6/uL (3.5-6.1); RED CELL DISTRIBUTION WIDTH 13.2 % (11.5-14.5); WHITE BLOOD COUNT 5.8 10^3/uL (4.5-11.0)
[2018-05-25 08:04] LABS: ALBUMIN 3.8 g/dL (3.0-4.8); ALT/SGPT 28 U/L (7-56); AST/SGOT 53 U/L (17-59); BLOOD UREA NITROGEN 24 mg/dL (7-21); CALCIUM 9.1 mg/dL (8.4-10.5); GFR NON-AFRICAN AMERICAN > 60
[2018-05-25] MEDS: Pantoprazole 40 mg EC Tab PO SCH (08:22)
[2018-05-25] MEDS ORDERED: guaiFENesin 200 mg/10 ml Syrup UD PO PRN (13:47)
[2018-05-25] MEDS: guaiFENesin-DM 600-30 mg ER Tab PO SCH ×2 (14:46→17:58)
--- NOTE | 2018-05-25 17:23 | PN ---
DATE: 05/25/2018 SUBJECTIVE: The patient seen earlier today in 561, bed 1. He has had an uneventful night. He says he is comfortable. There has been no fevers and no chills. PHYSICAL EXAMINATION VITAL SIGNS: Temperature is 97, blood pressure is 160/80, respiratory rate of 18, heart rate of 99. HEENT: Unremarkable. NECK: Supple. LUNGS: Have decreased breath sounds. HEART: Normal S1, S2. ABDOMEN: Soft. LABORATORY EXAMINATION: Reveals a white count of 5.8, hemoglobin of 10, platelets of 160. BUN of 24, creatinine of 0.5. Urinalysis is noted. Microbiology reviewed and review of orders reveals the patient to be on Zosyn. The patient's chest x-ray from yesterday reveals no significant change since there is a small opacity of the left lower lung. ASSESSMENT AND PLAN: An 88-year-old male who is comfortable and seen earlier today. He is doing well and complicated urinary tract infection with Proteus, Enterococcus with metastatic prostate cancer and with a history of Proteus bacteremia, history of prostate cancer. Today is day #4 of Zosyn for Proteus and Enterococcus, complicated urinary tract infection. We will continue the Zosyn at this time. We will follow with you. Evangelist García MD
--- NOTE | 2018-05-25 21:34 | PCM.URO ---
Urology Progress Note - Subjective Other: maintain holland. continue antibiotics. will follow along - Objective Lab Results Last 24 Hours: Laboratory Results - last 24 hr 05/25/18 05/25/18 07:30 07:30 WBC 5.8 RBC 3.38 L Hgb 10.5 L Hct 31.3 L MCV 92.6 MCH 31.1 MCHC 33.5 RDW 13.2 Plt Count 160 MPV 9.3 Neut % (Auto) 42.5 L Lymph % (Auto) 47.1 H [place] % (Auto) 9.7 H Eos % (Auto) 0.5 L Baso % (Auto) 0.2 Lymph # (Auto) 2.7 [place] # (Auto) 0.6 Eos # (Auto) 0.0 Baso # (Auto) 0.01 Absolute Neuts (auto) 2.46 Sodium 139 Potassium 3.8 Chloride 104 Carbon Dioxide 27 Anion Gap 11 BUN 24 H Creatinine 0.5 L Est GFR ( Amer) > 60 Est GFR (Non-Af Amer) > 60 Random Glucose 99 Calcium 9.1 Total Bilirubin 0.3 AST 53 ALT 28 Alkaline Phosphatase 105 Total Protein 7.5 Albumin 3.8 Globulin 3.7 Albumin/Globulin Ratio 1.0 L Intake & Output: Intake & Output 05/25/18 05/25/18 05/26/18 06:59 18:59 06:59 Intake Total 120 870 Output Total 1200 800 Balance -1080 70 Intake: IV 150 Right Hand 150 Oral 120 720 Output: Urine 1200 800 Urine, Voided 1200 800 Other: # Bowel Movements 1 2 Vital Signs: Vital Signs - 24 hr 05/24/18 05/25/18 05/25/18 22:44 06:00 08:30 Temperature 98.2 F 97.3 F L 97.3 F L Pulse Rate 94 H 99 H 99 H Respiratory 18 16 16 Rate Blood Pressure 142/56 L 163/81 H 163/81 H O2 Sat by Pulse 96 98 96 Oximetry 05/25/18 14:00 Temperature 98 F Pulse Rate 86 Respiratory 18 Rate Blood Pressure 130/66 O2 Sat by Pulse 96 Oximetry
[2018-05-26] MEDS: Piperacillin/Tazobact 3.375 gm 100 ML IVPB SCH ×3 (05:17→22:33)
[2018-05-26] MEDS: Pantoprazole 40 mg EC Tab PO SCH (09:49)
[2018-05-26] MEDS: guaiFENesin-DM 600-30 mg ER Tab PO SCH ×2 (09:51→17:22)
--- NOTE | 2018-05-26 09:58 | CP.PCM.DIS ---
Provider - Provider Date of Admission: 05/22/18 06:54 Attending physician: Kenny Bae MD Primary care physician: Glynn Shields MD Consults: 05/22/18 08:22 Consult [Physician Consult] Routine Comment: Consulting Provider: Evangelist García Consulting Physician: Evangelist García Reason for Consult: UTI 05/22/18 19:27 Physician Consult Routine Comment: Consulting Provider: Henry Nascimento Consulting Physician: Henry Nascimento Reason for Consult: dark urine from indwelling holland catheter 05/22/18 19:49 Case Management Referral Routine Comment: NEEDS 24-7 CARE,HAS ONE. CONFUSED,ASSIST TO WALK Physician Instructions: Reason For Exam: EVALUATION Reason for Referral: Licensed Final Expense Agents Eval Inpatient PRODUCER Core Measures Referral Routine Comment: Physician Instructions: Reason For Exam: EVALUATION Nursing Referral for Wound Care Routine Comment: A RISK FOR SKIN BREAKDOWN Physician Instructions: Reason For Exam: EVALUATION Transition In Care/Readmission Reduction Routine Comment: Physician Instructions: Reason For Exam: EVALUATION 05/22/18 19:55 Nursing Referral for Palliative Care Routine Comment: Physician Instructions: Reason For Exam: EVALUATION Social Work Referral Routine Comment: DISCHARGE PLANNING WITH ASSISTANCE AT HOME Physician Instructions: Reason For Exam: EVALUATION-HAS 24-7 CARE 05/23/18 08:38 Physician Consult Routine Comment: Consulting Provider: Alexis Rose Consulting Physician: Alexis Rose Reason for Consult: uti Hospital Course - Lab Results Lab Results: Micro Results 05/22/18 07:30 Blood-Venous Blood Culture - Preliminary NO GROWTH AFTER 4 DAYS 05/22/18 07:10 Blood-Venous Blood Culture - Preliminary NO GROWTH AFTER 4 DAYS 05/24/18 13:24 Blood-Venous Blood Culture - Preliminary NO GROWTH AFTER 24 HOURS 05/24/18 13:00 Blood-Venous Blood Culture - Preliminary NO GROWTH AFTER 24 HOURS 05/22/18 06:00 Urine,Clean Catch Urine Culture - Final Proteus Mirabilis Enterococcus Faecalis Most Recent Lab Values WBC 5.8 10^3/uL (4.5-11.0) 05/25/18 07:30 RBC 3.38 10^6/uL (3.5-6.1) L 05/25/18 07:30 Hgb 10.5 g/dL (14.0-18.0) L 05/25/18 07:30 Hct 31.3 % (42.0-52.0) L 05/25/18 07:30 MCV 92.6 fl (80.0-105.0) 05/25/18 07:30 MCH 31.1 pg (25.0-35.0) 05/25/18 07:30 MCHC 33.5 g/dl (31.0-37.0) 05/25/18 07:30 RDW 13.2 % (11.5-14.5) 05/25/18 07:30 Plt Count 160 10^3/uL (120.0-450.0) 05/25/18 07:30 MPV 9.3 fl (7.0-11.0) 05/25/18 07:30 Gran % 49.4 % (50.0-68.0) L 05/23/18 06:30 Neut % (Auto) 42.5 % (50.0-68.0) L 05/25/18 07:30 Lymph % (Auto) 47.1 % (22.0-35.0) H 05/25/18 07:30 [place] % (Auto) 9.7 % (1.0-6.0) H 05/25/18 07:30 Eos % (Auto) 0.5 % (1.5-5.0) L 05/25/18 07:30 Baso % (Auto) 0.2 % (0.0-3.0) 05/25/18 07:30 Gran # 3.27 (1.4-6.5) 05/23/18 06:30 Lymph # (Auto) 2.7 (1.2-3.4) 05/25/18 07:30 [place] # (Auto) 0.6 (0.1-0.6) 05/25/18 07:30 Eos # (Auto) 0.0 (0.0-0.7) 05/25/18 07:30 Baso # (Auto) 0.01 K/mm3 (0.0-2.0) 05/25/18 07:30 Absolute Neuts (auto) 2.46 (1.4-6.5) 05/25/18 07:30 pO2 49 mm/Hg (30-55) 05/22/18 07:25 VBG pH 7.36 (7.32-7.43) 05/22/18 07:25 VBG pCO2 41.0 (40-60) 05/22/18 07:25 VBG HCO3 23.2 mmol/l (21-28) 05/22/18 07:25 VBG Total CO2 24.5 mmol.L (22-28) 05/22/18 07:25 VBG O2 Sat (Calc) 86.9 % (40-65) H 05/22/18 07:25 VBG Base Excess -2.2 mmol/L (0.0-2.0) L 05/22/18 07:25 VBG Potassium 5.2 mmol/L (3.6-5.2) 05/22/18 07:25 Sodium 123.0 mmol/L (132-148) L 05/22/18 07:25 Chloride 92.0 mmol/L (98-107) L 05/22/18 07:25 Glucose TEST NOT PERFORMED 05/22/18 07:25 Lactate 1.6 mmol/L (0.7-2.1) 05/22/18 07:25 FiO2 21.0 % 05/22/18 07:25 Sodium 139 mmol/L (132-148) 05/25/18 07:30 Potassium 3.8 mmol/L (3.6-5.0) 05/25/18 07:30 Chloride 104 mmol/L (98-107) 05/25/18 07:30 Carbon Dioxide 27 mmol/L (21-33) 05/25/18 07:30 Anion Gap 11 (10-20) 05/25/18 07:30 BUN 24 mg/dL (7-21) H 05/25/18 07:30 Creatinine 0.5 mg/dl (0.8-1.5) L 05/25/18 07:30 Est GFR ( Amer) > 60 05/25/18 07:30 Est GFR (Non-Af Amer) > 60 05/25/18 07:30 Random Glucose 99 mg/dL (70-110) 05/25/18 07:30 Serum Osmolality 273 mosm/kg (272-300) 05/22/18 06:10 Calcium 9.1 mg/dL (8.4-10.5) 05/25/18 07:30 Phosphorus 4.5 mg/dL (2.5-4.5) 05/23/18 06:30 Magnesium 1.9 mg/dL (1.7-2.2) 05/23/18 06:30 Total Bilirubin 0.3 mg/dL (0.2-1.3) 05/25/18 07:30 AST 53 U/L (17-59) 05/25/18 07:30 ALT 28 U/L (7-56) 05/25/18 07:30 Alkaline Phosphatase 105 U/L (38-126) 05/25/18 07:30 Total Protein 7.5 g/dL (5.8-8.3) 05/25/18 07:30 Albumin 3.8 g/dL (3.0-4.8) 05/25/18 07:30 Globulin 3.7 gm/dL 05/25/18 07:30 Albumin/Globulin Ratio 1.0 (1.1-1.8) L 05/25/18 07:30 Procalcitonin < 0.05 NG/ML (0.19-0.49) L 05/22/18 07:25 Venous Blood Potassium 5.2 mmol/L (3.6-5.2) 05/22/18 07:25 Urine Color Red (YELLOW) 05/22/18 06:10 Urine Appearance Cloudy (CLEAR) 05/22/18 06:10 Urine pH 8.5 (4.7-8.0) 05/22/18 06:10 Ur Specific [place] 1.020 (1.005-1.035) 05/22/18 06:10 Urine Protein 100 mg/dL (<30 mg/dL) H 05/22/18 06:10 Urine Glucose (UA) Negative mg/dL (NEGATIVE) 05/22/18 06:10 Urine Ketones Negative mg/dL (NEGATIVE) 05/22/18 06:10 Urine Blood Large (NEGATIVE) H 05/22/18 06:10 Urine Nitrate Positive (NEGATIVE) H 05/22/18 06:10 Urine Bilirubin Negative (NEGATIVE) 05/22/18 06:10 Urine Urobilinogen 0.2 E.U./dL (<1 E.U./dL) 05/22/18 06:10 Ur Leukocyte Esterase Moderate Jus/uL (NEGATIVE) H 05/22/18 06:10 Urine RBC 2 - 5 /hpf (0-2) H 05/22/18 06:10 Urine WBC 15 - 20 /hpf (0-6) H 05/22/18 06:10 Ur Epithelial Cells 0 - 2 /hpf (0-5) 05/22/18 06:10 Urine Bacteria Many /hpf (NONE) 05/22/18 06:10 Urine Osmolality 223 mosm/kg (300-1000) L 05/22/18 15:37 Ur Random Sodium 16 meq/L 05/22/18 15:37 Discharge Exam - Head Exam Head Exam: ATRAUMATIC, NORMAL INSPECTION, NORMOCEPHALIC Discharge Plan - Follow Up Plan Condition: FAIR Disposition: HOME/ ROUTINE Referrals: Glynn Shields MD [Primary Care Provider] -
--- NOTE | 2018-05-26 11:55 | CP.PCM.PN ---
Subjective - Date & Time of Evaluation Date of Evaluation: 05/26/18 Time of Evaluation: 09:30 - Subjective Subjective: Comfortable, no fevers, no abdominal pain. Objective - Vital Signs/Intake and Output Vital Signs (last 24 hours): Temp Pulse Resp BP Pulse Ox 98 F 86 20 169/75 H 96 05/26/18 06:00 05/26/18 06:00 05/26/18 06:00 05/26/18 06:00 05/26/18 06:00 Intake and Output: 05/26/18 05/26/18 06:59 18:59 Intake Total 320 Output Total 600 Balance -280 - Medications Medications: Current Medications Carbamazepine (Tegretol) 200 mg PO TID [facility]; Protocol Last Admin: 05/26/18 09:48 Dose: 200 mg Fentanyl (Duragesic) 1 patch TD Q72 [facility] Last Admin: 05/26/18 09:46 Dose: 1 patch Guaifenesin (Robitussin) 200 mg PO Q4H PRN PRN Reason: Cough and congestion Guaifenesin/Dextromethorphan (Mucinex-Dm 600-30 Mg) 1 tab PO BID [facility] Last Admin: 05/25/18 17:58 Dose: 1 tab Piperacillin Sod/Tazobactam Sod (Zosyn 3.375 In Ns 100ml) 100 mls @ 25 mls/hr IVPB Q8 [facility]; Protocol Stop: 06/03/18 14:01 Last Admin: 05/26/18 05:17 Dose: 25 mls/hr Lorazepam (Ativan) 1 mg IVP Q6H PRN; Protocol PRN Reason: Seizure activity Last Admin: 05/25/18 22:00 Dose: 1 mg Pantoprazole Sodium (Protonix Ec Tab) 40 mg PO ACB [facility] Last Admin: 05/26/18 09:49 Dose: 40 mg - Labs Labs: 05/25/18 07:30 05/25/18 07:30 - Constitutional Appears: No Acute Distress, Chronically Ill - Head Exam Head Exam: NORMAL INSPECTION - Respiratory Exam Respiratory Exam: Decreased Breath Sounds - Cardiovascular Exam Cardiovascular Exam: +S1, +S2 - GI/Abdominal Exam GI & Abdominal Exam: Soft. absent: Tenderness Assessment and Plan - Assessment and Plan (Free Text) Plan: Assessment consider sepsis due to complicated UTI in this patient with indwelling Bray catheter and metastatic prostate cancer, growing Proteus and E. faecalis in the urine history of Proteus bacteremia, source unclear, concerned about intra-abdominal infection history of UTI in this patient with prostate cancer with metastasis history of Klebsiella urinary tract infection Mechanical fall, etiology to be determined prostate cancer on Lupron treatment once a month (hormonal treatment) seizure disorder glaucoma Plan continue Zosyn day 5 to complete 7-10 days follow up further Urology recommendations will continue to monitor clinically
[2018-05-26 14:10] VITALS: PULSE 88
--- NOTE | 2018-05-26 16:39 | CP.PCM.PN ---
<AnmolSana - Last Filed: 05/26/18 17:16> Subjective - Date & Time of Evaluation Date of Evaluation: 05/26/18 Time of Evaluation: 07:35 - Subjective Subjective: Pgy3 Medicine progress note for Dr. Bae Patient seen and examined at bedside. As per nursing no acute events overnight. Patient remained afebrile and this AM he denied any acute fever, chills, headache, dizziness, chest pain, palpitations, SOB, abd pain, nausea, vomiting, bowel/bladder complaints, pain/swelling in his legs b/l. Patient is making good UO but darker than the day before. Continues to complain of a mild cough. Objective - Vital Signs/Intake and Output Vital Signs (last 24 hours): Temp Pulse Resp BP Pulse Ox 99 F 88 20 135/74 95 05/26/18 14:00 05/26/18 14:00 05/26/18 14:00 05/26/18 14:00 05/26/18 14:00 Intake and Output: 05/26/18 05/26/18 06:59 18:59 Intake Total 320 Output Total 600 Balance -280 - Medications Medications: Current Medications Carbamazepine (Tegretol) 200 mg PO TID [facility]; Protocol Last Admin: 05/26/18 13:56 Dose: 200 mg Fentanyl (Duragesic) 1 patch TD Q72 [facility] Last Admin: 05/26/18 09:46 Dose: 1 patch Guaifenesin (Robitussin) 200 mg PO Q4H PRN PRN Reason: Cough and congestion Guaifenesin/Dextromethorphan (Mucinex-Dm 600-30 Mg) 1 tab PO BID [facility] Last Admin: 05/26/18 09:51 Dose: 1 tab Piperacillin Sod/Tazobactam Sod (Zosyn 3.375 In Ns 100ml) 100 mls @ 25 mls/hr IVPB Q8 [facility]; Protocol Stop: 06/03/18 14:01 Last Admin: 05/26/18 13:55 Dose: 25 mls/hr Lorazepam (Ativan) 1 mg IVP Q6H PRN; Protocol PRN Reason: Seizure activity Last Admin: 05/25/18 22:00 Dose: 1 mg Pantoprazole Sodium (Protonix Ec Tab) 40 mg PO ACB [facility] Last Admin: 05/26/18 09:49 Dose: 40 mg - Labs Labs: 05/25/18 07:30 05/25/18 07:30 Assessment and Plan - Assessment and Plan (Free Text) Assessment: 1. Complicated UTI with indwelling holland catheter- improving 2. Chronic indwelling holland catheter 3. Prostate ca on Lupro monthly 4. Chronic pain 5. Seizure disorder 6. Wheelchair bound 7. Glaucoma Plan: Patient's vitals, blood work, and imaging reviewed in chart. Repeat CXR no change from on admission. Repeat blood culture negative prelim x 2. Urine culture on admission +Proteus and +E. Faecalis. Patient's abx adjusted as per ID- patient to continue Zosyn. Procalcitonin <0.05. If patient becomes delirious recommend redirection. Monitor patient's Is and Os strictly. Patient has negative fluid balance. Continue patient's tegretol for seizure disorder. PRN ativan for seizures in place. Urology on board. Patent pain controlled with home Fentanyl patch. PT on board. HoB above 30 degrees and fall risk protocol in place. HHD diet ordered. GI ppx and SCDs on board. High fall risk and Seizure precautions in place. Patient pending placement in TCU vs [facility] as he needs IV abx for 3-[address] Catalino Corea PGY3 <Kenny Bae S - Last Filed: 05/26/18 17:28> Objective - Vital Signs/Intake and Output Vital Signs (last 24 hours): Temp Pulse Resp BP Pulse Ox 99 F 88 20 135/74 95 05/26/18 14:00 05/26/18 14:00 05/26/18 14:00 05/26/18 14:00 05/26/18 14:00 Intake and Output: 05/26/18 05/26/18 06:59 18:59 Intake Total 320 Output Total 600 Balance -280 - Medications Medications: Current Medications Carbamazepine (Tegretol) 200 mg PO TID [facility]; Protocol Last Admin: 05/26/18 17:22 Dose: 200 mg Fentanyl (Duragesic) 1 patch TD Q72 [facility] Last Admin: 05/26/18 09:46 Dose: 1 patch Guaifenesin (Robitussin) 200 mg PO Q4H PRN PRN Reason: Cough and congestion Guaifenesin/Dextromethorphan (Mucinex-Dm 600-30 Mg) 1 tab PO BID [facility] Last Admin: 05/26/18 17:22 Dose: 1 tab Piperacillin Sod/Tazobactam Sod (Zosyn 3.375 In Ns 100ml) 100 mls @ 25 mls/hr IVPB Q8 [facility]; Protocol Stop: 06/03/18 14:01 Last Admin: 05/26/18 13:55 Dose: 25 mls/hr Lorazepam (Ativan) 1 mg IVP Q6H PRN; Protocol PRN Reason: Seizure activity Last Admin: 05/25/18 22:00 Dose: 1 mg Pantoprazole Sodium (Protonix Ec Tab) 40 mg PO ACB [facility] Last Admin: 05/26/18 09:49 Dose: 40 mg - Labs Labs: 05/25/18 07:30 05/25/18 07:30 Assessment and Plan - Assessment and Plan (Free Text) Plan: Pt seen and examined by me. I have reviewed the note of the medical fee clerk and I agree with it. I have discussed the assessment and plan with the resident. I have reviewed the medications and the last labs. Pt with sepsis due to UTI. He is on Abx. Pt needs 3 more days of Abx. May need TCU or [facility]. His hyponatremia nd hyperkalemia is better. He has prostate cancer. Urology is following.He has a holland that is draining clear urine. No pain.
[2018-05-27] MEDS: Piperacillin/Tazobact 3.375 gm 100 ML IVPB SCH ×2 (05:02→13:37)
[2018-05-27 08:59] VITALS: BP 160/68; RESP 18; TEMP 98.5; O2SAT 98
[2018-05-27] MEDS: Pantoprazole 40 mg EC Tab PO SCH (10:11)
[2018-05-27] MEDS: guaiFENesin-DM 600-30 mg ER Tab PO SCH (10:11)
--- NOTE | 2018-05-27 10:57 | CP.PCM.PN ---
Subjective - Date & Time of Evaluation Date of Evaluation: 05/27/18 Time of Evaluation: 08:30 - Subjective Subjective: Comfortable in bed, no abdominal pain, no fevers, no nausea, no diarrhea. Objective - Vital Signs/Intake and Output Vital Signs (last 24 hours): Temp Pulse Resp BP Pulse Ox 98 F 86 20 169/75 H 96 05/26/18 06:00 05/26/18 06:00 05/26/18 06:00 05/26/18 06:00 05/26/18 06:00 Intake and Output: 05/26/18 05/26/18 06:59 18:59 Intake Total 320 Output Total 600 Balance -280 - Medications Medications: Current Medications Carbamazepine (Tegretol) 200 mg PO TID [facility]; Protocol Last Admin: 05/26/18 09:48 Dose: 200 mg Fentanyl (Duragesic) 1 patch TD Q72 [facility] Last Admin: 05/26/18 09:46 Dose: 1 patch Guaifenesin (Robitussin) 200 mg PO Q4H PRN PRN Reason: Cough and congestion Guaifenesin/Dextromethorphan (Mucinex-Dm 600-30 Mg) 1 tab PO BID [facility] Last Admin: 05/26/18 09:51 Dose: 1 tab Piperacillin Sod/Tazobactam Sod (Zosyn 3.375 In Ns 100ml) 100 mls @ 25 mls/hr IVPB Q8 [facility]; Protocol Stop: 06/03/18 14:01 Last Admin: 05/26/18 05:17 Dose: 25 mls/hr Lorazepam (Ativan) 1 mg IVP Q6H PRN; Protocol PRN Reason: Seizure activity Last Admin: 05/25/18 22:00 Dose: 1 mg Pantoprazole Sodium (Protonix Ec Tab) 40 mg PO ACB [facility] Last Admin: 05/26/18 09:49 Dose: 40 mg - Labs Labs: 05/25/18 07:30 05/25/18 07:30 - Constitutional Appears: Chronically Ill - Head Exam Head Exam: NORMAL INSPECTION - Neck Exam Neck Exam: absent: Meningismus - Respiratory Exam Respiratory Exam: Decreased Breath Sounds - Cardiovascular Exam Cardiovascular Exam: +S1, +S2 - GI/Abdominal Exam GI & Abdominal Exam: Soft. absent: Tenderness Assessment and Plan - Assessment and Plan (Free Text) Plan: Assessment consider sepsis due to complicated UTI in this patient with indwelling Bray catheter and metastatic prostate cancer, growing Proteus and E. faecalis in the urine history of Proteus bacteremia, source unclear, concerned about intra-abdominal infection history of UTI in this patient with prostate cancer with metastasis history of Klebsiella urinary tract infection Mechanical fall, etiology to be determined prostate cancer on Lupron treatment once a month (hormonal treatment) seizure disorder glaucoma Plan continue Zosyn day 6 to complete 7-10 days follow up further Urology recommendations will continue to monitor clinically
--- NOTE | 2018-05-27 11:38 | PQF ---
PROVIDER RESPONSE TEXT: Sepsis likely secondary to UTI REVIEWER QUERY TEXT: Cause and Effect Relationship Please clarify in documentation the relationship, if any, between and Such as: -- Conditions are due to or associated -- Unrelated to each other -- Other, please specify The patient's Clinical Indicators include: Your documentation notes the diagnosis of "sepsis likely secondary to a complicated UTI with indwelli ng holland catheter". Please clarify the meaning of a complicated UTI. If you are saying that the sepsis is due to a UTI as sociated with the catheter, please document specifically. [facility] has very specific codes for catheter as sociated infections. Query created by: Ivanna Taylor on 05/27/2018 11:28 AM Electronically signed by: Sana Corea 05/27/2018 11:35 AM
--- NOTE | 2018-05-27 12:46 | CP.PCM.DIS ---
<Sana Corea - Last Filed: 05/27/18 12:50> Provider - Provider Date of Admission: 05/22/18 06:54 Attending physician: Kenny Bae MD Primary care physician: Glynn Shields MD Consults: 05/22/18 08:22 Consult [Physician Consult] Routine Comment: Consulting Provider: Evangelist García Consulting Physician: Evangelist García Reason for Consult: UTI 05/22/18 19:27 Physician Consult Routine Comment: Consulting Provider: Henry Nascimento Consulting Physician: Henry Nascimento Reason for Consult: dark urine from indwelling holland catheter 05/22/18 19:49 Case Management Referral Routine Comment: NEEDS CARE,HAS ONE. CONFUSED,ASSIST TO WALK Physician Instructions: Reason For Exam: EVALUATION Reason for Referral: Loom Blower Eval Inpatient HOT SHOT Core Measures Referral Routine Comment: Physician Instructions: Reason For Exam: EVALUATION Nursing Referral for Wound Care Routine Comment: A RISK FOR SKIN BREAKDOWN Physician Instructions: Reason For Exam: EVALUATION Transition In Care/Readmission Reduction Routine Comment: Physician Instructions: Reason For Exam: EVALUATION 05/22/18 19:55 Nursing Referral for Palliative Care Routine Comment: Physician Instructions: Reason For Exam: EVALUATION Social Work Referral Routine Comment: DISCHARGE PLANNING WITH ASSISTANCE AT HOME Physician Instructions: Reason For Exam: EVALUATION-HAS 24-7 CARE 05/23/18 08:38 Physician Consult Routine Comment: Consulting Provider: Alexis Rose Consulting Physician: Alexis Rose Reason for Consult: uti 05/26/18 11:51 Evaluation for TRCU Routine Comment: Physician Instructions: Reason For Exam: weakness; deconditioning Time Spent in preparation of Discharge (in minutes): 45 Hospital Course - Lab Results Lab Results: Micro Results 05/25/18 16:00 Urine,Holland Urine Culture - Final No Growth (<1,000 CFU/ML) 05/22/18 07:30 Blood-Venous Blood Culture - Final NO GROWTH AFTER 5 DAYS 05/22/18 07:30 Blood-Venous Gram Stain - Final TEST NOT PERFORMED 05/22/18 07:10 Blood-Venous Blood Culture - Final NO GROWTH AFTER 5 DAYS 05/22/18 07:10 Blood-Venous Gram Stain - Final TEST NOT PERFORMED 05/24/18 13:24 Blood-Venous Blood Culture - Preliminary NO GROWTH AFTER 48 HOURS 05/24/18 13:00 Blood-Venous Blood Culture - Preliminary NO GROWTH AFTER 48 HOURS 05/22/18 06:00 Urine,Clean Catch Urine Culture - Final Proteus Mirabilis Enterococcus Faecalis Most Recent Lab Values WBC 5.8 10^3/uL (4.5-11.0) 05/25/18 07:30 RBC 3.38 10^6/uL (3.5-6.1) L 05/25/18 07:30 Hgb 10.5 g/dL (14.0-18.0) L 05/25/18 07:30 Hct 31.3 % (42.0-52.0) L 05/25/18 07:30 MCV 92.6 fl (80.0-105.0) 05/25/18 07:30 MCH 31.1 pg (25.0-35.0) 05/25/18 07:30 MCHC 33.5 g/dl (31.0-37.0) 05/25/18 07:30 RDW 13.2 % (11.5-14.5) 05/25/18 07:30 Plt Count 160 10^3/uL (120.0-450.0) 05/25/18 07:30 MPV 9.3 fl (7.0-11.0) 05/25/18 07:30 Gran % 49.4 % (50.0-68.0) L 05/23/18 06:30 Neut % (Auto) 42.5 % (50.0-68.0) L 05/25/18 07:30 Lymph % (Auto) 47.1 % (22.0-35.0) H 05/25/18 07:30 [place] % (Auto) 9.7 % (1.0-6.0) H 05/25/18 07:30 Eos % (Auto) 0.5 % (1.5-5.0) L 05/25/18 07:30 Baso % (Auto) 0.2 % (0.0-3.0) 05/25/18 07:30 Gran # 3.27 (1.4-6.5) 05/23/18 06:30 Lymph # (Auto) 2.7 (1.2-3.4) 05/25/18 07:30 [place] # (Auto) 0.6 (0.1-0.6) 05/25/18 07:30 Eos # (Auto) 0.0 (0.0-0.7) 05/25/18 07:30 Baso # (Auto) 0.01 K/mm3 (0.0-2.0) 05/25/18 07:30 Absolute Neuts (auto) 2.46 (1.4-6.5) 05/25/18 07:30 pO2 49 mm/Hg (30-55) 05/22/18 07:25 VBG pH 7.36 (7.32-7.43) 05/22/18 07:25 VBG pCO2 41.0 (40-60) 05/22/18 07:25 VBG HCO3 23.2 mmol/l (21-28) 05/22/18 07:25 VBG Total CO2 24.5 mmol.L (22-28) 05/22/18 07:25 VBG O2 Sat (Calc) 86.9 % (40-65) H 05/22/18 07:25 VBG Base Excess -2.2 mmol/L (0.0-2.0) L 05/22/18 07:25 VBG Potassium 5.2 mmol/L (3.6-5.2) 05/22/18 07:25 Sodium 123.0 mmol/L (132-148) L 05/22/18 07:25 Chloride 92.0 mmol/L (98-107) L 05/22/18 07:25 Glucose TEST NOT PERFORMED 05/22/18 07:25 Lactate 1.6 mmol/L (0.7-2.1) 05/22/18 07:25 FiO2 21.0 % 05/22/18 07:25 Sodium 139 mmol/L (132-148) 05/25/18 07:30 Potassium 3.8 mmol/L (3.6-5.0) 05/25/18 07:30 Chloride 104 mmol/L (98-107) 05/25/18 07:30 Carbon Dioxide 27 mmol/L (21-33) 05/25/18 07:30 Anion Gap 11 (10-20) 05/25/18 07:30 BUN 24 mg/dL (7-21) H 05/25/18 07:30 Creatinine 0.5 mg/dl (0.8-1.5) L 05/25/18 07:30 Est GFR ( Amer) > 60 05/25/18 07:30 Est GFR (Non-Af Amer) > 60 05/25/18 07:30 Random Glucose 99 mg/dL (70-110) 05/25/18 07:30 Serum Osmolality 273 mosm/kg (272-300) 05/22/18 06:10 Calcium 9.1 mg/dL (8.4-10.5) 05/25/18 07:30 Phosphorus 4.5 mg/dL (2.5-4.5) 05/23/18 06:30 Magnesium 1.9 mg/dL (1.7-2.2) 05/23/18 06:30 Total Bilirubin 0.3 mg/dL (0.2-1.3) 05/25/18 07:30 AST 53 U/L (17-59) 05/25/18 07:30 ALT 28 U/L (7-56) 05/25/18 07:30 Alkaline Phosphatase 105 U/L (38-126) 05/25/18 07:30 Total Protein 7.5 g/dL (5.8-8.3) 05/25/18 07:30 Albumin 3.8 g/dL (3.0-4.8) 05/25/18 07:30 Globulin 3.7 gm/dL 05/25/18 07:30 Albumin/Globulin Ratio 1.0 (1.1-1.8) L 05/25/18 07:30 Procalcitonin < 0.05 NG/ML (0.19-0.49) L 05/22/18 07:25 Venous Blood Potassium 5.2 mmol/L (3.6-5.2) 05/22/18 07:25 Urine Color Red (YELLOW) 05/22/18 06:10 Urine Appearance Cloudy (CLEAR) 05/22/18 06:10 Urine pH 8.5 (4.7-8.0) 05/22/18 06:10 Ur Specific [place] 1.020 (1.005-1.035) 05/22/18 06:10 Urine Protein 100 mg/dL (<30 mg/dL) H 05/22/18 06:10 Urine Glucose (UA) Negative mg/dL (NEGATIVE) 05/22/18 06:10 Urine Ketones Negative mg/dL (NEGATIVE) 05/22/18 06:10 Urine Blood Large (NEGATIVE) H 05/22/18 06:10 Urine Nitrate Positive (NEGATIVE) H 05/22/18 06:10 Urine Bilirubin Negative (NEGATIVE) 05/22/18 06:10 Urine Urobilinogen 0.2 E.U./dL (<1 E.U./dL) 05/22/18 06:10 Ur Leukocyte Esterase Moderate Jus/uL (NEGATIVE) H 05/22/18 06:10 Urine RBC 2 - 5 /hpf (0-2) H 05/22/18 06:10 Urine WBC 15 - 20 /hpf (0-6) H 05/22/18 06:10 Ur Epithelial Cells 0 - 2 /hpf (0-5) 05/22/18 06:10 Urine Bacteria Many /hpf (NONE) 05/22/18 06:10 Urine Osmolality 223 mosm/kg (300-1000) L 05/22/18 15:37 Ur Random Sodium 16 meq/L 05/22/18 15:37 - Hospital Course Hospital Course: Upon Admission As per HPI: 88yo male PMHx metastatic prostate cancer s/p ADT and palliative radiation on Lupron, seizures, glaucoma, dementia, UTI w/ indwelling holland (+ for E.coli, Klebsiella, and Enterococcus in the past) brought to ED by son for ower abdominal pain for the past 1-2 days, associated with dark colored urine. Patient was slightly lethargic and history obtained from both son and patient. Patient has visiting nurse come every month to change catheter; last change was 05/13/18. However over the past 1-2 days he was noted to be tired and with decreased and dark UO. Patient denied other complaints of fever, chills, headache, dizziness, chest pain, palpitations, SOB, cough, nausea, vomiting, bowel complaints, pain/swelling in his legs bilaterally. Hospital Course Patient admitted to med/surg for sepsis likely secondary to complicated UTI with indwelling holland. Blood and urine cultures ordered. Patient had procal < 0.05. He was started on Merrem and Vanc as per ID. Urine culture was +Proteus and +E. Faecalis and patient's abx was changed to Zosyn. Urology consulted for gross hematuria with history of chronic indwelling holland. Patient was given medications for URI and cough which he reported was improving. As per ID patient needed IV abx for an extended period. Patient was medically optimized for discharge to TCU. Upon Discharge Patient discharged to TCU for continued antibiotics and further management. Please note this is a discharge summary. For full hospital course please refer to EMR. Discharge Exam - Additional Findings Additional findings: - Constitutional Appears: Non-toxic, No Acute Distress - Head Exam Head Exam: ATRAUMATIC, NORMAL INSPECTION, NORMOCEPHALIC - Eye Exam Eye Exam: EOMI, Normal appearance, PERRL. absent: Conjunctival injection, Scleral icterus - ENT Exam ENT Exam: Mucous Membranes Moist - Neck Exam Neck Exam: absent: Lymphadenopathy - Respiratory Exam Respiratory Exam: Decreased Breath Sounds, Clear to Ausculation Bilateral, NORMAL BREATHING PATTERN. absent: Respiratory Distress - Cardiovascular Exam Cardiovascular Exam: +S1, +S2. absent: Bradycardia, Tachycardia - GI/Abdominal Exam GI & Abdominal Exam: Soft, Normal Bowel Sounds. absent: Firm, Guarding, Rigid, Tenderness - Extremities Exam Extremities Exam: Normal Capillary Refill. absent: Calf Tenderness, Pedal Edema - Neurological Exam Neurological Exam: Alert, Awake, CN II-XII Intact - Psychiatric Exam Psychiatric exam: Normal Affect, Normal Mood - Skin Skin Exam: Dry, Intact, Normal Color, Warm Discharge Plan - Discharge Medications Prescriptions: Piperacill/Tazo 3.375gm in Dex [Zosyn 3.375 Gm IV] 3.375 gm IVPB Q8H 8 Days bag - Follow Up Plan Condition: FAIR Disposition: REHAB FACILITY/REHAB UNIT Instructions: Urinary Tract Infection in Women (DC), Urinary Tract Infection in Men (DC), Dysuria (GEN) Additional Instructions: Please discharge patient to TCU and continue all medications Referrals: Glynn Shields MD [Primary Care Provider] - <Kenny Bae - Last Filed: 05/27/18 19:56> Provider - Provider Date of Admission: 05/22/18 06:54 Attending physician: Kenny Bae MD Primary care physician: Glynn Shields MD Consults: 05/22/18 08:22 Consult [Physician Consult] Routine Comment: Consulting Provider: Evangelist García Consulting Physician: Evangelist García Reason for Consult: UTI 05/22/18 19:27 Physician Consult Routine Comment: Consulting Provider: Henry Nascimento Consulting Physician: Henry Nascimento Reason for Consult: dark urine from indwelling holland catheter 05/22/18 19:49 Case Management Referral Routine Comment: NEEDS CARE,HAS ONE. CONFUSED,ASSIST TO WALK Physician Instructions: Reason For Exam: EVALUATION Reason for Referral: Loom Blower Eval Inpatient HOT SHOT Core Measures Referral Routine Comment: Physician Instructions: Reason For Exam: EVALUATION Nursing Referral for Wound Care Routine Comment: A RISK FOR SKIN BREAKDOWN Physician Instructions: Reason For Exam: EVALUATION Transition In Care/Readmission Reduction Routine Comment: Physician Instructions: Reason For Exam: EVALUATION 05/22/18 19:55 Nursing Referral for Palliative Care Routine Comment: Physician Instructions: Reason For Exam: EVALUATION Social Work Referral Routine Comment: DISCHARGE PLANNING WITH ASSISTANCE AT HOME Physician Instructions: Reason For Exam: EVALUATION-HAS - CARE 05/26/18 11:51 Evaluation for TRCU Routine Comment: Physician Instructions: Reason For Exam: weakness; deconditioning Hospital Course - Lab Results Lab Results: Micro Results 05/24/18 13:24 Blood-Venous Blood Culture - Preliminary NO GROWTH AFTER 3 DAYS 05/24/18 13:00 Blood-Venous Blood Culture - Preliminary NO GROWTH AFTER 3 DAYS 05/25/18 16:00 Urine,[place] Urine Culture - Final No Growth (<1,000 CFU/ML) 05/22/18 07:30 Blood-Venous Blood Culture - Final NO GROWTH AFTER 5 DAYS 05/22/18 07:30 Blood-Venous Gram Stain - Final TEST NOT PERFORMED 05/22/18 07:10 Blood-Venous Blood Culture - Final NO GROWTH AFTER 5 DAYS 05/22/18 07:10 Blood-Venous Gram Stain - Final TEST NOT PERFORMED 05/22/18 06:00 Urine,Clean Catch Urine Culture - Final Proteus Mirabilis Enterococcus Faecalis Most Recent Lab Values WBC 5.8 10^3/uL (4.5-11.0) 05/25/18 07:30 RBC 3.38 10^6/uL (3.5-6.1) L 05/25/18 07:30 Hgb 10.5 g/dL (14.0-18.0) L 05/25/18 07:30 Hct 31.3 % (42.0-52.0) L 05/25/18 07:30 MCV 92.6 fl (80.0-105.0) 05/25/18 07:30 MCH 31.1 pg (25.0-35.0) 05/25/18 07:30 MCHC 33.5 g/dl (31.0-37.0) 05/25/18 07:30 RDW 13.2 % (11.5-14.5) 05/25/18 07:30 Plt Count 160 10^3/uL (120.0-450.0) 05/25/18 07:30 MPV 9.3 fl (7.0-11.0) 05/25/18 07:30 Gran % 49.4 % (50.0-68.0) L 05/23/18 06:30 Neut % (Auto) 42.5 % (50.0-68.0) L 05/25/18 07:30 Lymph % (Auto) 47.1 % (22.0-35.0) H 05/25/18 07:30 [place] % (Auto) 9.7 % (1.0-6.0) H 05/25/18 07:30 Eos % (Auto) 0.5 % (1.5-5.0) L 05/25/18 07:30 Baso % (Auto) 0.2 % (0.0-3.0) 05/25/18 07:30 Gran # 3.27 (1.4-6.5) 05/23/18 06:30 Lymph # (Auto) 2.7 (1.2-3.4) 05/25/18 07:30 [place] # (Auto) 0.6 (0.1-0.6) 05/25/18 07:30 Eos # (Auto) 0.0 (0.0-0.7) 05/25/18 07:30 Baso # (Auto) 0.01 K/mm3 (0.0-2.0) 05/25/18 07:30 Absolute Neuts (auto) 2.46 (1.4-6.5) 05/25/18 07:30 pO2 49 mm/Hg (30-55) 05/22/18 07:25 VBG pH 7.36 (7.32-7.43) 05/22/18 07:25 VBG pCO2 41.0 (40-60) 05/22/18 07:25 VBG HCO3 23.2 mmol/l (21-28) 05/22/18 07:25 VBG Total CO2 24.5 mmol.L (22-28) 05/22/18 07:25 VBG O2 Sat (Calc) 86.9 % (40-65) H 05/22/18 07:25 VBG Base Excess -2.2 mmol/L (0.0-2.0) L 05/22/18 07:25 VBG Potassium 5.2 mmol/L (3.6-5.2) 05/22/18 07:25 Sodium 123.0 mmol/L (132-148) L 05/22/18 07:25 Chloride 92.0 mmol/L (98-107) L 05/22/18 07:25 Glucose TEST NOT PERFORMED 05/22/18 07:25 Lactate 1.6 mmol/L (0.7-2.1) 05/22/18 07:25 FiO2 21.0 % 05/22/18 07:25 Sodium 139 mmol/L (132-148) 05/25/18 07:30 Potassium 3.8 mmol/L (3.6-5.0) 05/25/18 07:30 Chloride 104 mmol/L (98-107) 05/25/18 07:30 Carbon Dioxide 27 mmol/L (21-33) 05/25/18 07:30 Anion Gap 11 (10-20) 05/25/18 07:30 BUN 24 mg/dL (7-21) H 05/25/18 07:30 Creatinine 0.5 mg/dl (0.8-1.5) L 05/25/18 07:30 Est GFR ( Amer) > 60 05/25/18 07:30 Est GFR (Non-Af Amer) > 60 05/25/18 07:30 Random Glucose 99 mg/dL (70-110) 05/25/18 07:30 Serum Osmolality 273 mosm/kg (272-300) 05/22/18 06:10 Calcium 9.1 mg/dL (8.4-10.5) 05/25/18 07:30 Phosphorus 4.5 mg/dL (2.5-4.5) 05/23/18 06:30 Magnesium 1.9 mg/dL (1.7-2.2) 05/23/18 06:30 Total Bilirubin 0.3 mg/dL (0.2-1.3) 05/25/18 07:30 AST 53 U/L (17-59) 05/25/18 07:30 ALT 28 U/L (7-56) 05/25/18 07:30 Alkaline Phosphatase 105 U/L (38-126) 05/25/18 07:30 Total Protein 7.5 g/dL (5.8-8.3) 05/25/18 07:30 Albumin 3.8 g/dL (3.0-4.8) 05/25/18 07:30 Globulin 3.7 gm/dL 05/25/18 07:30 Albumin/Globulin Ratio 1.0 (1.1-1.8) L 05/25/18 07:30 Procalcitonin < 0.05 NG/ML (0.19-0.49) L 05/22/18 07:25 Venous Blood Potassium 5.2 mmol/L (3.6-5.2) 05/22/18 07:25 Urine Color Red (YELLOW) 05/22/18 06:10 Urine Appearance Cloudy (CLEAR) 05/22/18 06:10 Urine pH 8.5 (4.7-8.0) 05/22/18 06:10 Ur Specific [place] 1.020 (1.005-1.035) 05/22/18 06:10 Urine Protein 100 mg/dL (<30 mg/dL) H 05/22/18 06:10 Urine Glucose (UA) Negative mg/dL (NEGATIVE) 05/22/18 06:10 Urine Ketones Negative mg/dL (NEGATIVE) 05/22/18 06:10 Urine Blood Large (NEGATIVE) H 05/22/18 06:10 Urine Nitrate Positive (NEGATIVE) H 05/22/18 06:10 Urine Bilirubin Negative (NEGATIVE) 05/22/18 06:10 Urine Urobilinogen 0.2 E.U./dL (<1 E.U./dL) 05/22/18 06:10 Ur Leukocyte Esterase Moderate Jus/uL (NEGATIVE) H 05/22/18 06:10 Urine RBC 2 - 5 /hpf (0-2) H 05/22/18 06:10 Urine WBC 15 - 20 /hpf (0-6) H 05/22/18 06:10 Ur Epithelial Cells 0 - 2 /hpf (0-5) 05/22/18 06:10 Urine Bacteria Many /hpf (NONE) 05/22/18 06:10 Urine Osmolality 223 mosm/kg (300-1000) L 05/22/18 15:37 Ur Random Sodium 16 meq/L 05/22/18 15:37 - Hospital Course Hospital Course: Pt seen and examined by me. I have reviewed the note of the medical office rep and I agree with it. I have discussed the assessment and plan with the resident. I have reviewed the medications and the last labs.Pt with sepsis that is improved. Delirium has improved. Electrolytes are normal. Prostate Ca and no issues. He needs 3-5 more days of Abx and will go to TCU.
== END 2018-05-27 15:53 | DRG 698 ==
LOC: ED 05:27 → ERH 06:54 → 5RNO 08:50
PROVIDERS: ADMIT Internal Medicine Nephrology; ATTEND Internal Medicine Nephrology
DX: T83.511A Infection and inflammatory reaction due to indwelling urethral catheter, initial encounter (principal); A41.9 Sepsis, unspecified organism; E87.1 Hypo-osmolality and hyponatremia; F05 Delirium due to known physiological condition; N39.0 Urinary tract infection, site not specified; C61 Malignant neoplasm of prostate; G40.909 Epilepsy, unspecified, not intractable, without status epilepticus; F03.90 Unspecified dementia, unspecified severity, without behavioral disturbance, psychotic disturbance, mood disturbance, and anxiety; E87.5 Hyperkalemia; R31.0 Gross hematuria; B96.4 Proteus (mirabilis) (morganii) as the cause of diseases classified elsewhere; B95.2 Enterococcus as the cause of diseases classified elsewhere; H40.9 Unspecified glaucoma; R10.30 Lower abdominal pain, unspecified; G89.29 Other chronic pain; Y84.6 Urinary catheterization as the cause of abnormal reaction of the patient, or of later complication, without mention of misadventure at the time of the procedure; Z79.818 Long term (current) use of other agents affecting estrogen receptors and estrogen levels; Z87.440 Personal history of urinary (tract) infections; Z87.891 Personal history of nicotine dependence; Z99.3 Dependence on wheelchair

== ENCOUNTER 2018-05-27 15:56 | Inpatient (IN) | payer MEDICARE ==
[2018-05-27] MEDS ORDERED: guaiFENesin 200 mg/10 ml Syrup UD PO PRN (16:07)
[2018-05-27] MEDS: guaiFENesin-DM 600-30 mg ER Tab PO SCH (17:26)
[2018-05-27] MEDS ORDERED: Pneumococcal 23-Valent Vaccine IM ONE (20:12)
[2018-05-27] MEDS ORDERED: Influenza Vaccine 60 mcg/0.5 mL SYR (4YR UP) IM ONE (20:12)
[2018-05-27] MEDS: Piperacillin/Tazobact 3.375 gm 100 ML IVPB SCH (21:25)
--- NOTE | 2018-05-28 05:11 | CP.PCM.HP ---
<Sana Corea - Last Filed: 05/28/18 07:12> History of Present Illness - History of Present Illness History of Present Illness: 88yo male PMHx metastatic prostate cancer s/p ADT and palliative radiation on Lupron, seizures, glaucoma, dementia, UTI w/ indwelling holland (+ for E.coli, Klebsiella, and Enterococcus in the past) brought to ED by son for ower abdominal pain for the past 1-2 days, associated with dark colored urine. Patient has visiting nurse come every month to change catheter; last change was 05/13/18. However over the past 1-2 days he was noted to be tired and with decreased and dark UO. Patient admitted to med/surg for sepsis likely secondary to complicated UTI with indwelling holland. Blood cultures were negative x 2 and urine culture was +Proteus and +E. Faecalis. Patient started on Zosyn as per ID. Urology consulted for gross hematuria with history of chronic indwelling holland. Patient was given medications for URI and cough which he reported was improving. As per ID patient needed IV abx for an extended period thus patient medically optimized for discharge to TCU. This AM patient seen and examined at bedside. Nursing reports no acute events overnight. Patient denies acute complaints fever, chills, headache, dizziness, chest pain, palpitations, SOB, cough, abd pain, nausea, vomiting, bowel/bladder complaints, pain/swelling in his legs b/l. He is eating well and comfortable. Present on Admission - Present on Admission Any Indicators Present on Admission: Yes Urinary Catheter: Yes Review of Systems - Review of Systems All systems: reviewed and no additional remarkable complaints except Review of Systems: as per HPI Past Patient History - Infectious Disease Hx of Infectious Diseases: None - Past Social History Smoking Status: Former Smoker - CARDIAC Hx Pacemaker: No - PULMONARY Hx Respiratory Disorders: Yes (H/O SMOKING CIGARETTES) Other/Comment: EMPYEMA/SARCOIDOSIS - NEUROLOGICAL Hx Dizziness: Yes (syncope) Hx Seizures: Yes (last seizure 20 yrs ago) - HEENT Hx Cataracts: Yes (with bilateral sx) - RENAL Hx Chronic Kidney Disease: Yes Other/Comment: chronic holland-Prostate ca. - ENDOCRINE/METABOLIC Hx Endocrine Disorders: No - HEMATOLOGICAL/ONCOLOGICAL Hx Cancer: Yes (prostate) - INTEGUMENTARY Hx Dermatological Problems: Yes Other/Comment: 2-5-18 bilateral le edema +2 more to right .Pitting with dry thin scaly flakes. - MUSCULOSKELETAL/RHEUMATOLOGICAL Hx Falls: Yes - GASTROINTESTINAL Hx Gastrointestinal Disorders: No - GENITOURINARY/GYNECOLOGICAL Hx Genitourinary Disorders: Yes (UTI,CHRONIC HOLLAND CATHETER) Hx Reproductive Disorders: Yes (PROSTATE CA) - PSYCHIATRIC Hx Psychophysiologic Disorder: Yes Hx Substance Use: No - SURGICAL HISTORY Hx Mastectomy: No - ANESTHESIA Hx Anesthesia: No Meds Allergies/Adverse Reactions: Allergies Allergy/AdvReac Type Severity Reaction Status Date / Time No Known Allergies Allergy Verified 05/27/18 18:01 Physical Exam - Additional Findings Additional findings: - Constitutional Appears: Non-toxic, No Acute Distress - Head Exam Head Exam: ATRAUMATIC, NORMAL INSPECTION, NORMOCEPHALIC - Eye Exam Eye Exam: EOMI, Normal appearance, PERRL. absent: Conjunctival injection, Scleral icterus - ENT Exam ENT Exam: Mucous Membranes Moist - Neck Exam Neck Exam: absent: Lymphadenopathy - Respiratory Exam Respiratory Exam: Decreased Breath Sounds, Clear to Ausculation Bilateral, NORMAL BREATHING PATTERN. absent: Respiratory Distress - Cardiovascular Exam Cardiovascular Exam: +S1, +S2. absent: Bradycardia, Tachycardia - GI/Abdominal Exam GI & Abdominal Exam: Soft, Normal Bowel Sounds. absent: Firm, Guarding, Rigid, Tenderness - Extremities Exam Extremities Exam: Normal Capillary Refill. absent: Calf Tenderness, Pedal Edema - Neurological Exam Neurological Exam: Alert, Awake, CN II-XII Intact - Psychiatric Exam Psychiatric exam: Normal Affect, Normal Mood - Skin Skin Exam: Dry, Intact, Normal Color, Warm Results - Vital Signs Recent Vital Signs: Last Vital Signs Temp 98.2 F 05/27/18 19:50 Pulse 81 05/27/18 19:50 Resp 18 05/27/18 19:50 BP 134/75 05/27/18 19:50 Pulse Ox 94 L 05/27/18 16:00 Assessment & Plan - Assessment and Plan (Free Text) Assessment: 1. Complicated UTI with indwelling holland catheter- improving 2. Chronic indwelling holland catheter 3. Prostate ca on Lupro monthly 4. Chronic pain 5. Seizure disorder 6. Wheelchair bound 7. Glaucoma Plan: Patient's vitals, blood work, and imaging reviewed in chart. Continue Zosyn for UTI with urine cultures +Proteus and +E. Faecalis. Procalcitonin <0.05. If patient becomes delirious recommend redirection. Monitor patient's Is and Os strictly. Continue patient's tegretol for seizure disorder. PRN ativan for seizures in place. Urology on board. Patent pain controlled with home Fentanyl patch. PT on board. HoB above 30 degrees and fall risk protocol in place. HHD diet ordered. GI ppx and SCDs on board. High fall risk and Seizure precautions in place. Continue work with PT and patient will be closely monitored at this time. Will discuss with Dr. Catalino Corea PGY3 <Kenny Bae S - Last Filed: 05/28/18 20:42> Results - Vital Signs Recent Vital Signs: Last Vital Signs Temp 98.6 F 05/28/18 16:00 Pulse 82 05/28/18 16:00 Resp 18 05/28/18 16:00 BP 141/68 05/28/18 16:00 Pulse Ox 96 05/28/18 16:00 - Labs Result Diagrams: 05/28/18 07:45 05/28/18 07:45 Labs: Laboratory Results - last 24 hr 05/28/18 05/28/18 07:45 07:45 WBC 6.0 RBC 3.43 L Hgb 10.4 L Hct 31.2 L MCV 91.0 MCH 30.3 MCHC 33.3 RDW 13.0 Plt Count 151 MPV 8.1 Neut % (Auto) 44.8 L Lymph % (Auto) 48.5 H [place] % (Auto) 5.7 Eos % (Auto) 0.8 L Baso % (Auto) 0.2 Lymph # (Auto) 2.9 [place] # (Auto) 0.3 Eos # (Auto) 0.1 Baso # (Auto) 0.01 Absolute Neuts (auto) 2.69 Sodium 137 Potassium 3.9 Chloride 104 Carbon Dioxide 26 Anion Gap 11 BUN 16 Creatinine 0.5 L Est GFR ( Amer) > 60 Est GFR (Non-Af Amer) > 60 Random Glucose 108 Calcium 8.8 Phosphorus 3.8 Magnesium 1.8 Total Bilirubin 0.2 AST 56 ALT 54 Alkaline Phosphatase 109 Total Protein 6.9 Albumin 3.7 Globulin 3.2 Albumin/Globulin Ratio 1.2 Assessment & Plan - Assessment and Plan (Free Text) Plan: Pt seen and examined by me. I have reviewed the note of the medical physics professor and I agree with it. I have discussed the assessment and plan with the resident. I have reviewed the medications and the last labs.Pt with UTI and is on Zosyn. He will need to finish 3 more days of Abx. Fentanyl patch for pain due to prostate cancer. Pt is home bound and does not ambulate. Pt has Sz disorder and is stable. Pt has Glaucoma.
[2018-05-28] MEDS: Piperacillin/Tazobact 3.375 gm 100 ML IVPB SCH ×3 (05:20→21:22)
[2018-05-28] MEDS: Pantoprazole 20 mg EC Tab PO SCH (05:21)
[2018-05-28 07:56] LABS: BASO # 0.01 K/mm3 (0.0-2.0); BASO % 0.2 % (0.0-3.0); EOS # 0.1 (0.0-0.7); EOS % 0.8 % (1.5-5.0); HEMOGLOBIN 10.4 g/dL (14.0-18.0); LYMPH # 2.9 (1.2-3.4); LYMPH % 48.5 % (22.0-35.0); MEAN CORPUSCULAR HEMOGLOBIN 30.3 pg (25.0-35.0); MEAN CORPUSCULAR HGB CONC 33.3 g/dl (31.0-37.0); MEAN PLATELET VOLUME 8.1 fl (7.0-11.0); MONO # 0.3 (0.1-0.6); MONO % 5.7 % (1.0-6.0); RBC 3.43 10^6/uL (3.5-6.1)
[2018-05-28 08:12] LABS: ALB/GLOB RATIO 1.2 (1.1-1.8); ALBUMIN 3.7 g/dL (3.0-4.8); ALT/SGPT 54 U/L (7-56); AST/SGOT 56 U/L (17-59); BLOOD UREA NITROGEN 16 mg/dL (7-21); CALCIUM 8.8 mg/dL (8.4-10.5); GFR NON-AFRICAN AMERICAN > 60
[2018-05-28] MEDS: guaiFENesin-DM 600-30 mg ER Tab PO SCH ×2 (10:26→17:16)
--- NOTE | 2018-05-28 13:03 | CP.PCM.CON ---
History of Present Illness - History of Present Illness History of Present Illness: 88 year old male with PMH of prostate cancer with metastasis on Lupron treatment (hormonal treatment) and radiation therapy to the pelvic area and lumbar spine, seizure disorder, glaucoma, history of Klebsiella UTI, history of Proteus b acteremia initially came in to [facility] [place] because of problems with urination and dark- colored urine. He was found to have UTI with E. faecalis and Proteus and has been doing well with antibiotics. He is now transferred to [facility] for continued medical therapy and physical therapy. Infectious diseases consult is requested to continue his antibiotics. He is comfortable in bed, no fevers, no nausea, no abdominal pain, no diarrhea, no headache or dizziness, no dysuria currently, urine is not dark-colored currently. Past Medical and surgical history: as above Personal and social history: denies alcohol abuse, no illicit drug use, no smokin family history: non-contributory Review of Systems - Review of Systems All systems: reviewed and no additional remarkable complaints except (as per HPI) Past Patient History - Infectious Disease Hx of Infectious Diseases: None - Past Social History Smoking Status: Former Smoker - CARDIAC Hx Pacemaker: No - PULMONARY Hx Respiratory Disorders: Yes (H/O SMOKING CIGARETTES) Other/Comment: EMPYEMA/SARCOIDOSIS - NEUROLOGICAL Hx Dizziness: Yes (syncope) Hx Seizures: Yes (last seizure 20 yrs ago) - HEENT Hx Cataracts: Yes (with bilateral sx) - RENAL Hx Chronic Kidney Disease: Yes Other/Comment: chronic holland-Prostate ca. - ENDOCRINE/METABOLIC Hx Endocrine Disorders: No - HEMATOLOGICAL/ONCOLOGICAL Hx Cancer: Yes (prostate) - INTEGUMENTARY Hx Dermatological Problems: Yes Other/Comment: 2-5-18 bilateral le edema +2 more to right .Pitting with dry thin scaly flakes. - MUSCULOSKELETAL/RHEUMATOLOGICAL Hx Falls: Yes - GASTROINTESTINAL Hx Gastrointestinal Disorders: No - GENITOURINARY/GYNECOLOGICAL Hx Genitourinary Disorders: Yes (UTI,CHRONIC HOLLAND CATHETER) Hx Reproductive Disorders: Yes (PROSTATE CA) - PSYCHIATRIC Hx Psychophysiologic Disorder: Yes Hx Substance Use: No - SURGICAL HISTORY Hx Mastectomy: No - ANESTHESIA Hx Anesthesia: No Meds Allergies/Adverse Reactions: Allergies Allergy/AdvReac Type Severity Reaction Status Date / Time No Known Allergies Allergy Verified 05/27/18 18:01 - Medications Medications: Current Medications Carbamazepine (Tegretol) 200 mg PO TID [facility]; Protocol Last Admin: 05/27/18 17:26 Dose: 200 mg Fentanyl (Duragesic) 1 patch TD Q72H [facility]; Protocol Guaifenesin (Robitussin) 200 mg PO Q4H PRN; Protocol PRN Reason: Cough and congestion Guaifenesin/Dextromethorphan (Mucinex-Dm 600-30 Mg) 1 tab PO BID [facility]ARA; Protocol Last Admin: 05/27/18 17:26 Dose: 1 tab Piperacillin Sod/Tazobactam Sod (Zosyn 3.375 In Ns 100ml) 100 mls @ 25 mls/hr IVPB 0600,1400,2200 [facility]; Protocol Stop: 05/30/18 09:59 Last Admin: 05/28/18 05:20 Dose: 25 mls/hr Lorazepam (Ativan) 1 mg IVP Q6H PRN; Protocol PRN Reason: Seizure activity Pantoprazole Sodium (Protonix Ec Tab) 20 mg PO 0600 [facility]; Protocol Last Admin: 05/28/18 05:21 Dose: 20 mg Physical Exam - Constitutional Appears: No Acute Distress, Chronically Ill - Head Exam Head Exam: NORMAL INSPECTION - Neck Exam Neck exam: Negative for: Meningismus - Respiratory Exam Respiratory Exam: Decreased Breath Sounds - Cardiovascular Exam Cardiovascular Exam: +S1, +S2 - GI/Abdominal Exam GI & Abdominal Exam: Soft. absent: Tenderness Results - Vital Signs Recent Vital Signs: Last Vital Signs Temp 98.2 F 05/27/18 19:50 Pulse 81 05/27/18 19:50 Resp 18 05/27/18 19:50 BP 134/75 05/27/18 19:50 Pulse Ox 94 L 05/27/18 16:00 - Labs Result Diagrams: 05/28/18 07:45 05/28/18 07:45 Labs: Laboratory Results - last 24 hr 05/28/18 05/28/18 07:45 07:45 WBC 6.0 RBC 3.43 L Hgb 10.4 L Hct 31.2 L MCV 91.0 MCH 30.3 MCHC 33.3 RDW 13.0 Plt Count 151 MPV 8.1 Neut % (Auto) 44.8 L Lymph % (Auto) 48.5 H [place] % (Auto) 5.7 Eos % (Auto) 0.8 L Baso % (Auto) 0.2 Lymph # (Auto) 2.9 [place] # (Auto) 0.3 Eos # (Auto) 0.1 Baso # (Auto) 0.01 Absolute Neuts (auto) 2.69 Sodium 137 Potassium 3.9 Chloride 104 Carbon Dioxide 26 Anion Gap 11 BUN 16 Creatinine 0.5 L Est GFR ( Amer) > 60 Est GFR (Non-Af Amer) > 60 Random Glucose 108 Calcium 8.8 Phosphorus 3.8 Magnesium 1.8 Total Bilirubin 0.2 AST 56 ALT 54 Alkaline Phosphatase 109 Total Protein 6.9 Albumin 3.7 Globulin 3.2 Albumin/Globulin Ratio 1.2 Assessment & Plan - Assessment and Plan (Free Text) Plan: Assessment sepsis due to complicated UTI in this patient with indwelling Holland catheter and metastatic prostate cancer, growing Proteus and E. faecalis in the urine, clinically improving history of Proteus bacteremia, source unclear, concerned about intra-abdominal infection history of UTI in this patient with prostate cancer with metastasis history of Klebsiella urinary tract infection Mechanical fall, etiology to be determined prostate cancer on Lupron treatment once a month (hormonal treatment) seizure disorder glaucoma Plan continue Zosyn day 7 to complete 7-10 days follow up further Urology recommendations will continue to follow clinically
--- NOTE | 2018-05-29 00:29 | CON ---
DATE: 05/28/2018 GENITOURINARY CONSULTATION CHIEF COMPLAINT: Weakness. HISTORY OF PRESENT ILLNESS: This is an 88-year-old male who is known to me from prior admissions. The patient has a history of metastatic prostate cancer. He had previously been on androgen deprivation therapy with Lupron. He was supposed to follow up in the office but has not followed up in over one year. I had previously had long discussions with his son regarding further treatment of the prostate cancer and the patient has dementia and does not know whether he has or has not been receiving his hormonal therapy. Approximately one year ago, it was recommended to the patient and his son that there are advanced therapies which the patient would likely benefit from, either Xtandi or Zytiga. It is unclear why the patient was not brought to the office. It is unclear whether the patient has been seeing somebody for treatments as the patient has dementia and does not comprehend questions about his medical history and is unable to answer what has been happening. The patient also has a long history of urinary retention and has a chronic indwelling Bray catheter which is changed monthly by visiting nurse. Catheter was recently changed about two weeks ago. The patient has had recurrent urinary infections obviously with an indwelling Bray catheter. He has been treated multiple times with antibiotics. The patient denies any gross hematuria, but by report there have been occasional episodes of gross hematuria. He is currently a DNR/DNI status. PAST MEDICAL HISTORY: Significant for metastatic prostate cancer, chronic urinary retention, dementia, nonambulatory status, seizure disorder, reflux. MEDICATIONS: Currently include Ativan, Duragesic, Mucinex, Protonix, Robitussin, Tegretol and Zosyn. ALLERGIES: NO KNOWN DRUG ALLERGIES. FAMILY HISTORY: Noncontributory for this admission. SOCIAL HISTORY: No smoking or EtOH use. REVIEW OF SYSTEMS: Obtained from the patient but he is a poor historian. He is currently complaining only of weakness, lethargy. He denies current pain but has had complaints of bony pain and lower extremity pain in the past. PHYSICAL EXAMINATION: GENERAL: The patient is awake and answering questions. He is in no acute distress. He is a poor historian with dementia. NECK: Supple. There is no adenopathy or mass noted. CHEST: Exam of the chest revealed normal inspiratory effort. CARDIAC: Exam showed positive S1, S2. There is 2+ edema noted. VITAL SIGNS: He is afebrile, temp of 98.6, pulse of 82, blood pressure 141/68, respirations 18. ABDOMEN: Soft, obese, nontender, nondistended. There is no hepatosplenomegaly. There is no CVA tenderness but the patient does report some lower back tenderness to palpation. GENITOURINARY: Has a splitting of his urethral meatus and he has some purulent drainage around the Bray catheter which is indwelling. Bray itself is draining clear colored urine. Scrotum has mild edema. Testes bilaterally are descended, atrophic, nontender, without mass. Epididymis also atrophic. EXTREMITIES: There is no cyanosis noted. There is 2+ edema noted. LABORATORY EXAM: Creatinine 0.5 with a GFR greater than 60. Testosterone 8.56 on 05/17/2017, PSA 50.2 from 06/06/2017. On radiologic exam, there are no recent pertinent x-rays done. IMPRESSION AND PLAN: This is an 88-year-old male with known metastatic prostate cancer. It is unclear whether the patient has been receiving any treatment other than the palliative radiation he received last year. We will need to discuss further treatment with his son given that the patient is DNR/DNI status. Plan will be to check testosterone and PSA levels and then we can decide whether to put the patient back on hormonal therapy or further imaging is needed and further palliative radiation given the patient's advanced dementia and current status. We will need to discuss palliative treatment versus continuing hormonal therapy with the patient's family. Thank you for allowing me to participate in the care of this patient. We will follow him with you. Henry Nascimento MD
[2018-05-29] MEDS: Pantoprazole 20 mg EC Tab PO SCH (05:35)
[2018-05-29] MEDS: Piperacillin/Tazobact 3.375 gm 100 ML IVPB SCH ×3 (05:35→21:27)
--- NOTE | 2018-05-29 06:38 | CP.PCM.PN ---
<Alfredo Coreaima - Last Filed: 05/29/18 15:08> Subjective - Date & Time of Evaluation Date of Evaluation: 05/29/18 Time of Evaluation: 06:30 - Subjective Subjective: P[facility] Medicine progress note for Dr. Bae Patient seen and examined at bedside. As per nursing no acute events overnight. Patient resting comfortably and denied fever, chills, headache, dizziness, chest pain, palpitations, SOB, cough, abd pain, nausea, vomiting, bowel/bladder complaints, pain/swelling in his legs b/l. He is eating well and making good urine. Objective - Vital Signs/Intake and Output Vital Signs (last 24 hours): Temp Pulse Resp BP Pulse Ox 98.6 F 82 18 141/68 96 05/28/18 16:00 05/28/18 16:00 05/28/18 16:00 05/28/18 16:00 05/28/18 16:00 Intake and Output: 05/28/18 05/29/18 18:59 06:59 Intake Total 620 Output Total 1950 Balance -1330 - Medications Medications: Current Medications Carbamazepine (Tegretol) 200 mg PO TID [facility]; Protocol Last Admin: 05/28/18 17:16 Dose: 200 mg Fentanyl (Duragesic) 1 patch TD Q72H [facility]; Protocol Guaifenesin (Robitussin) 200 mg PO Q4H PRN; Protocol PRN Reason: Cough and congestion Guaifenesin/Dextromethorphan (Mucinex-Dm 600-30 Mg) 1 tab PO BID [facility]; Protocol Last Admin: 05/28/18 17:16 Dose: 1 tab Piperacillin Sod/Tazobactam Sod (Zosyn 3.375 In Ns 100ml) 100 mls @ 25 mls/hr IVPB 0600,1400,2200 [facility]; Protocol Stop: 05/31/18 22:01 Last Admin: 05/29/18 05:35 Dose: 25 mls/hr Lorazepam (Ativan) 1 mg IVP Q6H PRN; Protocol PRN Reason: Seizure activity Pantoprazole Sodium (Protonix Ec Tab) 20 mg PO 0600 [facility]; Protocol Last Admin: 05/29/18 05:35 Dose: 20 mg - Labs Labs: 05/28/18 07:45 05/28/18 07:45 - Additional Findings Additional findings: - Constitutional Appears: Non-toxic, No Acute Distress - Head Exam Head Exam: ATRAUMATIC, NORMAL INSPECTION, NORMOCEPHALIC - Eye Exam Eye Exam: EOMI, Normal appearance, PERRL. absent: Conjunctival injection, Scleral icterus - ENT Exam ENT Exam: Mucous Membranes Moist - Neck Exam Neck Exam: absent: Lymphadenopathy - Respiratory Exam Respiratory Exam: Decreased Breath Sounds, Clear to Ausculation Bilateral, NORMAL BREATHING PATTERN. absent: Respiratory Distress - Cardiovascular Exam Cardiovascular Exam: +S1, +S2. absent: Bradycardia, Tachycardia - GI/Abdominal Exam GI & Abdominal Exam: Soft, Normal Bowel Sounds. absent: Firm, Guarding, Rigid, Tenderness - Extremities Exam Extremities Exam: Normal Capillary Refill. absent: Calf Tenderness, Pedal Edema - Neurological Exam Neurological Exam: Alert, Awake, CN II-XII Intact - Psychiatric Exam Psychiatric exam: Normal Affect, Normal Mood - Skin Skin Exam: Dry, Intact, Normal Color, Warm Assessment and Plan - Assessment and Plan (Free Text) Assessment: 1. Complicated UTI with indwelling holland catheter- improving 2. Chronic indwelling holland catheter 3. Prostate ca on Lupro monthly 4. Chronic pain 5. Seizure disorder 6. Wheelchair bound 7. Glaucoma Plan: Patient's vitals, blood work, and imaging reviewed in chart. Continue Zosyn (day 8) for 10 day total course in light of UTI with urine cultures +Proteus and +E. Faecalis. Procalcitonin <0.05. If patient becomes delirious recommend redirection. Monitor patient's Is and Os strictly. Continue patient's tegretol for seizure disorder. PRN ativan for seizures in place. As per urology, testosterone and PSA checked; testosterone 31 and PSA 99.1. Urology will speak to patient's family regarding palliative treatment vs hormonal therapy. Patent pain controlled with home Fentanyl patch. PT on board. HoB above 30 degrees and fall risk protocol in place. HHD diet ordered. GI ppx and SCDs on board. High fall risk and Seizure precautions in place. Continue work with PT. Patient will be closely monitored at this time. Will discuss with Dr. Catalino Corea PGY3 <Kenny Bae - Last Filed: 05/29/18 18:09> Objective - Vital Signs/Intake and Output Vital Signs (last 24 hours): Temp Pulse Resp BP Pulse Ox 98.6 F 76 18 132/57 L 96 05/29/18 16:00 05/29/18 16:00 05/29/18 16:00 05/29/18 16:00 05/29/18 16:00 Intake and Output: 05/29/18 05/29/18 06:59 18:59 Intake Total 620 Output Total 1950 Balance -1330 - Medications Medications: Current Medications Carbamazepine (Tegretol) 200 mg PO TID [facility]; Protocol Last Admin: 05/29/18 17:44 Dose: 200 mg Fentanyl (Duragesic) 1 patch TD Q72H [facility]; Protocol Last Admin: 05/29/18 09:48 Dose: 1 patch Guaifenesin (Robitussin) 200 mg PO Q4H PRN; Protocol PRN Reason: Cough and congestion Guaifenesin/Dextromethorphan (Mucinex-Dm 600-30 Mg) 1 tab PO BID [facility]; Protocol Last Admin: 05/29/18 17:43 Dose: 1 tab Piperacillin Sod/Tazobactam Sod (Zosyn 3.375 In Ns 100ml) 100 mls @ 25 mls/hr IVPB 0600,1400,2200 [facility]; Protocol Stop: 05/31/18 22:01 Last Admin: 05/29/18 15:18 Dose: 25 mls/hr Lorazepam (Ativan) 1 mg IVP Q6H PRN; Protocol PRN Reason: Seizure activity Pantoprazole Sodium (Protonix Ec Tab) 20 mg PO 0600 [facility]; Protocol Last Admin: 05/29/18 05:35 Dose: 20 mg - Labs Labs: 05/28/18 07:45 05/28/18 07:45 Assessment and Plan - Assessment and Plan (Free Text) Plan: Patient was seen and examined by. I have reviewed the note of the medical assistant supervisor and have gone over the plann of care. I agree with the not. I have reviewed the medications and the last labs. Pt is on IV Zosyn for Abx. He had a UTI that is being treated on TCU. He is on Tegrotol for his Sz. Pt has Prostate Ca and does see Urology. He is on a Fentanyl Patch for pain. He does not ambulate. He will be discharged after his Abx are finished. This will be in 2 days.
[2018-05-29] MEDS: guaiFENesin-DM 600-30 mg ER Tab PO SCH ×2 (09:51→17:43)
--- NOTE | 2018-05-29 13:35 | CP.PCM.PN ---
Subjective - Date & Time of Evaluation Date of Evaluation: 05/29/18 Time of Evaluation: 09:25 - Subjective Subjective: Comfortable in bed, no fevers, no dysuria or hematuria currently, no nausea or diarrhea. Objective - Vital Signs/Intake and Output Vital Signs (last 24 hours): Temp Pulse Resp BP Pulse Ox 98.2 F 81 18 134/75 94 L 05/27/18 19:50 05/27/18 19:50 05/27/18 19:50 05/27/18 19:50 05/27/18 16:00 Intake and Output: 05/28/18 05/28/18 06:59 18:59 Intake Total 300 Output Total 1050 Balance -750 - Medications Medications: Current Medications Carbamazepine (Tegretol) 200 mg PO TID [facility]; Protocol Last Admin: 05/28/18 10:26 Dose: 200 mg Fentanyl (Duragesic) 1 patch TD Q72H [facility]; Protocol Guaifenesin (Robitussin) 200 mg PO Q4H PRN; Protocol PRN Reason: Cough and congestion Guaifenesin/Dextromethorphan (Mucinex-Dm 600-30 Mg) 1 tab PO BID [facility]; Protocol Last Admin: 05/28/18 10:26 Dose: 1 tab Piperacillin Sod/Tazobactam Sod (Zosyn 3.375 In Ns 100ml) 100 mls @ 25 mls/hr IVPB 0600,1400,2200 [facility]; Protocol Stop: 05/30/18 09:59 Last Admin: 05/28/18 05:20 Dose: 25 mls/hr Lorazepam (Ativan) 1 mg IVP Q6H PRN; Protocol PRN Reason: Seizure activity Pantoprazole Sodium (Protonix Ec Tab) 20 mg PO 0600 [facility]; Protocol Last Admin: 05/28/18 05:21 Dose: 20 mg - Labs Labs: 05/28/18 07:45 05/28/18 07:45 - Constitutional Appears: Non-toxic, No Acute Distress, Chronically Ill - Head Exam Head Exam: NORMAL INSPECTION - ENT Exam ENT Exam: Mucous Membranes Moist - Neck Exam Neck Exam: absent: Meningismus - Respiratory Exam Respiratory Exam: Decreased Breath Sounds - Cardiovascular Exam Cardiovascular Exam: +S1, +S2 - GI/Abdominal Exam GI & Abdominal Exam: Soft. absent: Tenderness Assessment and Plan - Assessment and Plan (Free Text) Plan: Assessment sepsis due to complicated UTI in this patient with indwelling Bray catheter and metastatic prostate cancer, growing Proteus and E. faecalis in the urine, clinically improving history of Proteus bacteremia, source unclear, concerned about intra-abdominal infection history of UTI in this patient with prostate cancer with metastasis history of Klebsiella urinary tract infection Mechanical fall, etiology to be determined prostate cancer on Lupron treatment once a month (hormonal treatment) seizure disorder glaucoma Plan continue Zosyn day 8 to complete 7-10 days follow up further Urology recommendations will continue to follow clinically
[2018-05-29] MEDS ORDERED: Oxycodone/Acetaminophen 5/325 mg Tab PO ONE (13:55)
[2018-05-30] MEDS: Piperacillin/Tazobact 3.375 gm 100 ML IVPB SCH ×3 (05:27→21:34)
[2018-05-30] MEDS: Pantoprazole 20 mg EC Tab PO SCH (05:32)
[2018-05-30] MEDS: guaiFENesin-DM 600-30 mg ER Tab PO SCH ×2 (10:04→17:17)
[2018-05-30] MEDS ORDERED: Oxycodone/Acetaminophen 5/325 mg Tab PO PRN ×2 (11:41→12:04)
--- NOTE | 2018-05-30 15:40 | CP.PCM.PN ---
Subjective - Date & Time of Evaluation Date of Evaluation: 05/30/18 Time of Evaluation: 13:55 - Subjective Subjective: Comfortable, no fevers, not in distress, no abdominal pain, no dysuria or hematuria currently. Objective - Vital Signs/Intake and Output Vital Signs (last 24 hours): Temp Pulse Resp BP Pulse Ox 98.6 F 82 18 141/68 96 05/28/18 16:00 05/28/18 16:00 05/28/18 16:00 05/28/18 16:00 05/28/18 16:00 Intake and Output: 05/29/18 05/29/18 06:59 18:59 Intake Total 620 Output Total 1950 Balance -1330 - Medications Medications: Current Medications Carbamazepine (Tegretol) 200 mg PO TID [facility]; Protocol Last Admin: 05/29/18 09:51 Dose: 200 mg Fentanyl (Duragesic) 1 patch TD Q72H [facility]; Protocol Last Admin: 05/29/18 09:48 Dose: 1 patch Guaifenesin (Robitussin) 200 mg PO Q4H PRN; Protocol PRN Reason: Cough and congestion Guaifenesin/Dextromethorphan (Mucinex-Dm 600-30 Mg) 1 tab PO BID [facility]; Protocol Last Admin: 05/29/18 09:51 Dose: 1 tab Piperacillin Sod/Tazobactam Sod (Zosyn 3.375 In Ns 100ml) 100 mls @ 25 mls/hr IVPB 0600,1400,2200 [facility]; Protocol Stop: 05/31/18 22:01 Last Admin: 05/29/18 05:35 Dose: 25 mls/hr Lorazepam (Ativan) 1 mg IVP Q6H PRN; Protocol PRN Reason: Seizure activity Pantoprazole Sodium (Protonix Ec Tab) 20 mg PO 0600 [facility]; Protocol Last Admin: 05/29/18 05:35 Dose: 20 mg - Labs Labs: 05/28/18 07:45 05/28/18 07:45 - Constitutional Appears: Chronically Ill - Head Exam Head Exam: NORMAL INSPECTION - ENT Exam ENT Exam: Mucous Membranes Moist - Neck Exam Neck Exam: absent: Lymphadenopathy, Meningismus - Respiratory Exam Respiratory Exam: Decreased Breath Sounds - Cardiovascular Exam Cardiovascular Exam: +S1, +S2 - GI/Abdominal Exam GI & Abdominal Exam: Soft. absent: Tenderness Assessment and Plan - Assessment and Plan (Free Text) Plan: Assessment sepsis due to complicated UTI in this patient with indwelling Bray catheter and metastatic prostate cancer, growing Proteus and E. faecalis in the urine, clinically improving history of Proteus bacteremia, source unclear, concerned about intra-abdominal infection history of UTI in this patient with prostate cancer with metastasis history of Klebsiella urinary tract infection Mechanical fall, etiology to be determined prostate cancer on Lupron treatment once a month (hormonal treatment) seizure disorder glaucoma Plan continue Zosyn day 9 to complete 7-10 days follow up further Urology recommendations will continue to follow clinically
[2018-05-30 16:23] VITALS: RESP 20
--- NOTE | 2018-05-30 17:04 | CP.PCM.PN ---
<Alfredo Coreaima - Last Filed: 05/30/18 17:02> Subjective - Date & Time of Evaluation Date of Evaluation: 05/30/18 Time of Evaluation: 07:50 - Subjective Subjective: [facility] progress note for Dr. Bae Patient seen and examined at bedside. As per nursing patient required 1 dose percocet for his back pain prior to working with PT. No acute events overnight. Patient resting comfortably this AM eating breakfast. Denied fever, chills, headache, dizziness, chest pain, palpitations, SOB, cough, abd pain, nausea, vomiting, bowel/bladder complaints, pain/swelling in his legs b/l. Objective - Vital Signs/Intake and Output Vital Signs (last 24 hours): Temp Pulse Resp BP Pulse Ox 98.2 F 84 20 116/46 L 96 05/30/18 16:00 05/30/18 16:00 05/30/18 16:00 05/30/18 16:00 05/30/18 16:00 Intake and Output: 05/30/18 05/30/18 06:59 18:59 Intake Total 360 Output Total 1900 Balance -1540 - Medications Medications: Current Medications Carbamazepine (Tegretol) 200 mg PO TID TARA; Protocol Last Admin: 05/30/18 14:13 Dose: 200 mg Fentanyl (Duragesic) 1 patch TD Q72H TARA; Protocol Last Admin: 05/29/18 09:48 Dose: 1 patch Guaifenesin (Robitussin) 200 mg PO Q4H PRN; Protocol PRN Reason: Cough and congestion Guaifenesin/Dextromethorphan (Mucinex-Dm 600-30 Mg) 1 tab PO BID TARA; Protocol Last Admin: 05/30/18 10:04 Dose: 1 tab Piperacillin Sod/Tazobactam Sod (Zosyn 3.375 In Ns 100ml) 100 mls @ 25 mls/hr IVPB 0600,1400,2200 TARA; Protocol Stop: 05/31/18 22:01 Last Admin: 05/30/18 14:13 Dose: 25 mls/hr Lorazepam (Ativan) 1 mg IVP Q6H PRN; Protocol PRN Reason: Seizure activity Oxycodone/Acetaminophen (Percocet 5/325 Mg Tab) 1 tab PO Q6H PRN; Protocol PRN Reason: severe pain (8-10) Pantoprazole Sodium (Protonix Ec Tab) 20 mg PO 0600 TARA; Protocol Last Admin: 05/30/18 05:32 Dose: 20 mg - Labs Labs: 05/28/18 07:45 05/28/18 07:45 - Additional Findings Additional findings: - Constitutional Appears: Non-toxic, No Acute Distress - Head Exam Head Exam: ATRAUMATIC, NORMAL INSPECTION, NORMOCEPHALIC - Eye Exam Eye Exam: EOMI, Normal appearance, PERRL. absent: Conjunctival injection, Scleral icterus - ENT Exam ENT Exam: Mucous Membranes Moist - Neck Exam Neck Exam: absent: Lymphadenopathy - Respiratory Exam Respiratory Exam: Decreased Breath Sounds, Clear to Ausculation Bilateral, NORMAL BREATHING PATTERN. absent: Respiratory Distress - Cardiovascular Exam Cardiovascular Exam: +S1, +S2. absent: Bradycardia, Tachycardia - GI/Abdominal Exam GI & Abdominal Exam: Soft, Normal Bowel Sounds. absent: Firm, Guarding, Rigid, Tenderness - Extremities Exam Extremities Exam: Normal Capillary Refill. absent: Calf Tenderness, Pedal Edema - Neurological Exam Neurological Exam: Alert, Awake, CN II-XII Intact - Psychiatric Exam Psychiatric exam: Normal Affect, Normal Mood - Skin Skin Exam: Dry, Intact, Normal Color, Warm Assessment and Plan - Assessment and Plan (Free Text) Assessment: 1. Complicated UTI with indwelling holland catheter- improving 2. Chronic indwelling holland catheter 3. Prostate ca on Lupro monthly 4. Chronic pain 5. Seizure disorder 6. Wheelchair bound 7. Glaucoma Plan: Patient's vitals, blood work, and imaging reviewed in chart. Continue Zosyn (day 9) for 10 day total course in light of UTI with urine cultures +Proteus and +E. Faecalis. Procalcitonin <0.05. Monitor patient's Is and Os strictly. Continue patient's tegretol for seizure disorder. PRN ativan for seizures in place. As per urology, testosterone and PSA checked; testosterone 31 and PSA 99.1. Urology will speak to patient's family regarding palliative treatment vs hormonal therapy. Patent pain controlled with home Fentanyl patch. PT on board. HoB above 30 degrees and fall risk protocol in place. HHD diet ordered. GI ppx and SCDs on board. High fall risk and Seizure precautions in place. Continue work with PT. If patient becomes delirious recommend redirection. Patient will be closely monitored at this time. Will discuss with Dr. Catalino Corea PGY3 <Kenny Bae S - Last Filed: 05/30/18 18:56> Objective - Vital Signs/Intake and Output Vital Signs (last 24 hours): Temp Pulse Resp BP Pulse Ox 98.2 F 84 20 116/46 L 96 05/30/18 16:00 05/30/18 16:00 05/30/18 16:00 05/30/18 16:00 05/30/18 16:00 Intake and Output: 05/30/18 05/30/18 06:59 18:59 Intake Total 360 Output Total 1900 900 Balance -1540 -900 - Medications Medications: Current Medications Carbamazepine (Tegretol) 200 mg PO TID TARA; Protocol Last Admin: 05/30/18 17:18 Dose: 200 mg Fentanyl (Duragesic) 1 patch TD Q72H TARA; Protocol Last Admin: 05/29/18 09:48 Dose: 1 patch Guaifenesin (Robitussin) 200 mg PO Q4H PRN; Protocol PRN Reason: Cough and congestion Guaifenesin/Dextromethorphan (Mucinex-Dm 600-30 Mg) 1 tab PO BID TARA; Protocol Last Admin: 05/30/18 17:17 Dose: 1 tab Piperacillin Sod/Tazobactam Sod (Zosyn 3.375 In Ns 100ml) 100 mls @ 25 mls/hr IVPB 0600,1400,2200 TARA; Protocol Stop: 05/31/18 22:01 Last Admin: 05/30/18 14:13 Dose: 25 mls/hr Lorazepam (Ativan) 1 mg IVP Q6H PRN; Protocol PRN Reason: Seizure activity Oxycodone/Acetaminophen (Percocet 5/325 Mg Tab) 1 tab PO Q6H PRN; Protocol PRN Reason: severe pain (8-10) Pantoprazole Sodium (Protonix Ec Tab) 20 mg PO 0600 TARA; Protocol Last Admin: 05/30/18 05:32 Dose: 20 mg - Labs Labs: 05/28/18 07:45 05/28/18 07:45 Assessment and Plan - Assessment and Plan (Free Text) Plan: Pt seen and examined by me. I have reviewed the note of the medical office supervisor and I agree with it. I have discussed the assessment and plan with the resident. I have reviewed the medications and the last labs.Pt with UTI and is on IV Abx. He has 1 more day of ABx left. Pt is on Fentanly patch for pain. He has Glaucoma and is controlled. Prostate Ca and will f/u with Urology. Will go home in the am.
[2018-05-31] MEDS: Pantoprazole 20 mg EC Tab PO SCH (05:58)
[2018-05-31] MEDS: Piperacillin/Tazobact 3.375 gm 100 ML IVPB SCH ×2 (05:58→14:20)
--- NOTE | 2018-05-31 08:32 | DS ---
HISTORY OF PRESENT ILLNESS: The patient is an 88-year-old male who is coming to the hospital and was found to have urinary tract infection. The patient has been treated fully for his urinary tract infection. He is going to be discharge home today. He has no complaints of any headaches or dizziness. No nausea. No vomiting. Today is day #10 of his Zosyn. PHYSICAL EXAMINATION: VITAL SIGNS: Temperature is 98.2, pulse of 84, blood pressure 116/46 and respirations 20. GENERAL: The patient is lying in bed, flat, comfortable. HEENT: No oral lesion. Anicteric sclerae. Moist mucosa. NECK: No JVD, adenopathy, or thyromegaly. CARDIOVASCULAR: S1 and S2, regular. No murmurs, rubs, or gallops. LUNGS: Clear to auscultation bilaterally. No wheeze, rales, or rhonchi. ABDOMEN: Bowel sounds are positive, soft, nontender and nondistended. EXTREMITIES: No cyanosis, clubbing or edema. ASSESSMENT: 1. Urinary tract infection. 2. Bray secondary to urinary retention. 3. Prostate cancer. 4. Chronic back pain. 5. Seizure disorder. 6. Wheelchair bound. 7. Glaucoma. PLAN: The patient is currently on fentanyl patch for his pain. He did receive the flu shot. The patient is on Percocet for pain as needed for break through. He is on carbamazepine for his seizures. He is finishing his Zosyn today. He is on heart healthy diet. He will be discharge home and followup with his primary care doctor and urologist. CONDITION: Stable. ACTIVITIES: Increase as tolerated. Kenny Bae MD
[2018-05-31] MEDS: guaiFENesin-DM 600-30 mg ER Tab PO SCH (10:03)
[2018-05-31 11:01] VITALS: BP 127/63; PULSE 86; TEMP 98.5; O2SAT 95
--- NOTE | 2018-05-31 16:29 | CP.PCM.PN ---
Subjective - Date & Time of Evaluation Date of Evaluation: 05/31/18 Time of Evaluation: 10:55 - Subjective Subjective: Comfortable, no fevers, no abdominal pain, no dysuria. Objective - Vital Signs/Intake and Output Vital Signs (last 24 hours): Temp Pulse Resp BP Pulse Ox 98.6 F 76 18 132/57 L 96 05/29/18 16:00 05/29/18 16:00 05/29/18 16:00 05/29/18 16:00 05/29/18 16:00 Intake and Output: 05/30/18 05/30/18 06:59 18:59 Intake Total 360 Output Total 1900 Balance -1540 - Medications Medications: Current Medications Carbamazepine (Tegretol) 200 mg PO TID TARA; Protocol Last Admin: 05/30/18 14:13 Dose: 200 mg Fentanyl (Duragesic) 1 patch TD Q72H TARA; Protocol Last Admin: 05/29/18 09:48 Dose: 1 patch Guaifenesin (Robitussin) 200 mg PO Q4H PRN; Protocol PRN Reason: Cough and congestion Guaifenesin/Dextromethorphan (Mucinex-Dm 600-30 Mg) 1 tab PO BID TARA; Protocol Last Admin: 05/30/18 10:04 Dose: 1 tab Piperacillin Sod/Tazobactam Sod (Zosyn 3.375 In Ns 100ml) 100 mls @ 25 mls/hr IVPB 0600,1400,2200 TARA; Protocol Stop: 05/31/18 22:01 Last Admin: 05/30/18 14:13 Dose: 25 mls/hr Lorazepam (Ativan) 1 mg IVP Q6H PRN; Protocol PRN Reason: Seizure activity Oxycodone/Acetaminophen (Percocet 5/325 Mg Tab) 1 tab PO Q6H PRN; Protocol PRN Reason: severe pain (8-10) Pantoprazole Sodium (Protonix Ec Tab) 20 mg PO 0600 TARA; Protocol Last Admin: 05/30/18 05:32 Dose: 20 mg - Labs Labs: 05/28/18 07:45 05/28/18 07:45 - Constitutional Appears: Chronically Ill - Head Exam Head Exam: NORMAL INSPECTION - Respiratory Exam Respiratory Exam: Decreased Breath Sounds - Cardiovascular Exam Cardiovascular Exam: +S1, +S2 - GI/Abdominal Exam GI & Abdominal Exam: Soft. absent: Tenderness Assessment and Plan - Assessment and Plan (Free Text) Plan: Assessment sepsis due to complicated UTI in this patient with indwelling Bray catheter and metastatic prostate cancer, growing Proteus and E. faecalis in the urine, clinically improved history of Proteus bacteremia, source unclear, concerned about intra-abdominal infection history of UTI in this patient with prostate cancer with metastasis history of Klebsiella urinary tract infection Mechanical fall, etiology to be determined prostate cancer on Lupron treatment once a month (hormonal treatment) seizure disorder glaucoma Plan on Zosyn day 10 to complete 7-10 days patient should follow up with Urology as an outpatient
== END 2018-05-31 14:39 | disposition home or self-care (01) | DRG 698 ==
LOC: TRCU 15:56
PROVIDERS: ADMIT Internal Medicine Nephrology; ATTEND Internal Medicine Nephrology
PROC: F07Z9FZ Gait Training/Functional Ambulation Treatment using Assistive, Adaptive, Supportive or Protective Equipment (ICD-10-PCS; principal; 2018-05-28)
PROC: F08Z4FZ Home Management Treatment using Assistive, Adaptive, Supportive or Protective Equipment (ICD-10-PCS; 2018-05-28)
DX: T83.511A Infection and inflammatory reaction due to indwelling urethral catheter, initial encounter (principal); A41.9 Sepsis, unspecified organism; N39.0 Urinary tract infection, site not specified; Z79.2 Long term (current) use of antibiotics; C61 Malignant neoplasm of prostate; G89.29 Other chronic pain; G40.909 Epilepsy, unspecified, not intractable, without status epilepticus; F03.90 Unspecified dementia, unspecified severity, without behavioral disturbance, psychotic disturbance, mood disturbance, and anxiety; J06.9 Acute upper respiratory infection, unspecified; K21.9 Gastro-esophageal reflux disease without esophagitis; H40.9 Unspecified glaucoma; Y84.6 Urinary catheterization as the cause of abnormal reaction of the patient, or of later complication, without mention of misadventure at the time of the procedure; Z66 Do not resuscitate; Z99.3 Dependence on wheelchair; Z91.81 History of falling; Z79.818 Long term (current) use of other agents affecting estrogen receptors and estrogen levels; Z87.891 Personal history of nicotine dependence

== ENCOUNTER 2018-06-16 09:09 | Inpatient (IN) | payer MEDICARE ==
[2018-06-16 09:38] VITALS: BMI 24.3
[2018-06-16 10:42] LABS: URINE BILIRUBIN LARGE (NEGATIVE); URINE BLOOD LARGE (NEGATIVE); URINE GLUCOSE (UA) 500 mg/dL (NEGATIVE); URINE LEUKOCYTE ESTERASE LARGE Leu/uL (NEGATIVE); URINE PROTEIN >=300 mg/dL (<30 mg/dL)
[2018-06-16 10:47] LABS: URINE APPEARANCE TURBID (CLEAR); URINE COLOR BROWN (YELLOW)
--- NOTE | 2018-06-16 11:25 | ED PDOC ---
Arrival/HPI - General Chief Complaint: Male Genitourinary Time Seen by Provider: 06/16/18 09:19 Historian: Patient - History of Present Illness Narrative History of Present Illness (Text): 06/16/18 11:23 88yo male with pmhx of metastatic Prostate CA s/p ADT and palliative care, seizures, dementia who was bib EMS for urinary retention and lower abdominal pain. The son by the bedside states patients indwelling Holland was changed yesterday by a visiting nurse after they were told that the Holland was flowing. States that it worked last night and then the home care again complained that they was no urine when he woke up this morning and when a visiting nurse flushed it nothing came out. Denies fever, hematuria, chills, back pain, nausea, vomiting, diarrhea, any other complaint. Past Medical History - Provider Review Nursing Documentation Reviewed: Yes - Infectious Disease Hx of Infectious Diseases: None - Cardiac Hx Pacemaker: No - Pulmonary Hx Respiratory Disorders: Yes (H/O SMOKING CIGARETTES) Other/Comment: EMPYEMA/SARCOIDOSIS - Neurological Hx Dizziness: Yes (syncope) Hx Seizures: Yes (last seizure 20 yrs ago) - HEENT Hx Cataracts: Yes (with bilateral sx) - Renal Hx Renal Disorder: Yes Other/Comment: chronic holland-Prostate ca. - Endocrine/Metabolic Hx Endocrine Disorders: No - Hematological/Oncological Hx Cancer: Yes (prostate) - Integumentary Hx Dermatological Disorder: Yes - Musculoskeletal/Rheumatological Hx Arthritis: Yes - Gastrointestinal Hx Gastrointestinal Disorders: No - Genitourinary/Gynecological Hx Genitourinary Disorders: Yes (UTI,CHRONIC HOLLAND CATHETER) Hx Reproductive Disorders: Yes (PROSTATE CA) - Psychiatric Hx Psychophysiologic Disorder: Yes Hx Substance Use: No - Surgical History Hx Mastectomy: No - Anesthesia Hx Anesthesia: No Family/Social History - Physician Review Nursing Documentation Reviewed: Yes Family/Social History: Unknown Family HX Smoking Status: Former Smoker Hx Alcohol Use: Yes (occasional) Hx Substance Use: No Allergies/Home Meds Allergies/Adverse Reactions: Allergies No Known Allergies Allergy (Verified 05/27/18 18:01) Home Medications: Home Meds Medication Instructions Recorded Confirmed RX: Fentanyl [Duragesic Patch] 50 mcg TD Q72 05/22/18 06/16/18 RX: Gemfibrozil [Lopid] 600 mg PO BID 05/22/18 06/16/18 RX: Omeprazole 40 mg PO DAILY 05/22/18 06/16/18 oxyCODONE/Acetaminophen [Percocet 1 tab PO Q4H PRN 06/16/18 06/16/18 5/325 mg Tab] Review of Systems - Physician Review All systems were reviewed & negative as marked: Yes - Review of Systems Constitutional: Normal Eyes: Normal ENT: Normal Respiratory: Normal Cardiovascular: Normal Gastrointestinal: Abdominal Pain. absent: Constipation, Diarrhea, Nausea, Vomiting Genitourinary Male: Urinary Output Changes (Urinary retention) Musculoskeletal: Normal Skin: Normal Neurological: Normal Endocrine: Normal Hemo/Lymphatic: Normal Psychiatric: Normal Physical Exam Vital Signs Reviewed: Yes Vital Signs Temp Pulse Resp BP Pulse Ox 06/16/18 09:46 98.2 F 95 H 18 137/80 96 Temperature: Afebrile Blood Pressure: Normal Pulse: Regular Respiratory Rate: Normal Appearance: Positive for: Well-Appearing, Non-Toxic, Comfortable Pain Distress: None Mental Status: Positive for: Alert and Oriented X 3 - Systems Exam Head: Present: Atraumatic, Normocephalic Pupils: Present: PERRL Extroacular Muscles: Present: EOMI Conjunctiva: Present: Normal Mouth: Present: Moist Mucous Membranes Neck: Present: Normal Range of Motion Respiratory/Chest: Present: Clear to Auscultation, Good Air Exchange. No: Respiratory Distress, Accessory Muscle Use Cardiovascular: Present: Regular Rate and Rhythm, Normal S1, S2. No: Murmurs Abdomen: Present: Tenderness (Lower abdominal tenderness), Distention (Mild lower abdominal distention), Normal Bowel Sounds, Other (Soft). No: Peritoneal Signs, Rebound, Guarding, McBurney's Point Tender, Rovsing's Sign Present Back: Present: Normal Inspection Upper Extremity: Present: Normal Inspection. No: Cyanosis, Edema Lower Extremity: Present: Normal Inspection. No: Edema Neurological: Present: GCS=15, CN II-XII Intact, Speech Normal Skin: Present: Warm, Dry, Normal Color. No: Rashes Psychiatric: Present: Alert, Oriented x 3, Normal Insight, Normal Concentration Medical Decision Making ED Course and Treatment: 06/16/18 17:08 88yo male bib EMS for urinary retention and abdominal distention. He was afebrile, hemodynamically stable in ED. his Holland was changed in ED and UA ordered He was treated with Penicillin in ED Labs ordered Pt was observed in ED and on deflation urinary outpu was noted, but with inflation it stops. Pt put out a total of 1300mc in ED Lab was reviewed with no leukocytosis. Hyponatremia was noted. Pt was hydrated in ED Per the son who is the POA pt is DNR/DNI and the order was placed Case was BENJAMIN ricci and pt was admitted for UTI, hyponatremia and urinary retention Result and plan was DW pt and the son and they both agreed. - Lab Interpretations Lab Results: Urine Color Brown (YELLOW) 06/16/18 10:20 Urine Appearance Turbid (CLEAR) 06/16/18 10:20 Urine pH 7.0 (4.7-8.0) 06/16/18 10:20 Ur Specific Dana 1.015 (1.005-1.035) 06/16/18 10:20 Urine Protein >=300 mg/dL (<30 mg/dL) H 06/16/18 10:20 Urine Glucose (UA) 500 mg/dL (NEGATIVE) H 06/16/18 10:20 Urine Ketones 15 mg/dL (NEGATIVE) H 06/16/18 10:20 Urine Blood Large (NEGATIVE) H 06/16/18 10:20 Urine Nitrate Positive (NEGATIVE) H 06/16/18 10:20 Urine Bilirubin Large (NEGATIVE) H 06/16/18 10:20 Urine Urobilinogen 4.0 E.U./dL (<1 E.U./dL) H 06/16/18 10:20 Ur Leukocyte Esterase Large Jus/uL (NEGATIVE) H 06/16/18 10:20 Disposition/Present on Arrival - Present on Arrival Any Indicators Present on Arrival: No History of DVT/PE: No History of Uncontrolled Diabetes: No Urinary Catheter: Yes History of Decub. Ulcer: No History Surgical Site Infection Following: None - Disposition Have Diagnosis and Disposition been Completed?: Yes Diagnosis: UTI (urinary tract infection), Hyponatremia, Urinary retention, Anemia Disposition: HOSPITALIZED Disposition Time: 12:00 Patient Plan: Admission, Discharge Patient Problems: Current Active Problems Problem Status Onset Anemia Acute Hyponatremia Acute Urinary retention Acute Urinary tract infection Acute Condition: FAIR
[2018-06-16 11:41] LABS: URINE BACTERIA LARGE /hpf; URINE RBC TNTC /hpf (0-2); URINE WBC TNTC /hpf (0-6)
[2018-06-16 12:27] LABS: BASO # 0.01 K/mm3 (0.0-2.0); BASO % 0.1 % (0.0-3.0); EOS # 0.1 (0.0-0.7); EOS % 0.6 % (1.5-5.0); HEMOGLOBIN 9.6 g/dL (14.0-18.0); LYMPH # 3.2 (1.2-3.4); LYMPH % 31.5 % (22.0-35.0); MEAN CELL VOLUME 89.5 fl (80.0-105.0); MEAN CORPUSCULAR HEMOGLOBIN 30.6 pg (25.0-35.0); MEAN CORPUSCULAR HGB CONC 34.2 g/dl (31.0-37.0); MEAN PLATELET VOLUME 9.1 fl (7.0-11.0); MONO # 0.8 (0.1-0.6); MONO % 7.9 % (1.0-6.0); RBC 3.14 10^6/uL (3.5-6.1); RED CELL DISTRIBUTION WIDTH 13.2 % (11.5-14.5)
[2018-06-16] MEDS ORDERED: Sodium Chloride 0.9% 500 ML IV STA (15:01)
[2018-06-16] MEDS ORDERED: Oxycodone/Acetaminophen 5/325 mg Tab PO PRN (15:37)
[2018-06-16 16:21] LABS: ALBUMIN 3.9 g/dL (3.0-4.8); ALT/SGPT 12 U/L (7-56); AST/SGOT 34 U/L (17-59); BLOOD UREA NITROGEN 37 mg/dL (7-21); GFR NON-AFRICAN AMERICAN > 60
[2018-06-16 16:33] LABS: IRON 32 ug/dL (45-180)
[2018-06-16 16:42] LABS: % IRON SATURATION 15 % (20-55); TOTAL IRON BINDING CAPACITY 215 ug/dL (261-462)
--- NOTE | 2018-06-16 17:17 | RAD ---
Date of service: 06/16/2018 HISTORY: Admission. COMPARISON: 05/24/2018 FINDINGS: LUNGS: No active pulmonary disease. PLEURA: No significant pleural effusion identified, no pneumothorax apparent. CARDIOVASCULAR: No atherosclerotic calcification present No radiographic findings to suggest acute or significant cardiovascular disease. OSSEOUS STRUCTURES: No significant abnormalities. VISUALIZED UPPER ABDOMEN: Normal. OTHER FINDINGS: None. IMPRESSION: No active disease. No significant interval change compared to the prior examination(s).
--- NOTE | 2018-06-17 07:56 | CP.PCM.HP ---
<Rivas Armendariz - Last Filed: 06/17/18 10:04> History of Present Illness - History of Present Illness History of Present Illness: H&P for Dr Bae: 88yo male PMHx metastatic prostate cancer s/p ADT and palliative radiation on Lupron, seizures, glaucoma, dementia, UTI w/ indwelling herron (+ for E.coli, Klebsiella, and Enterococcus in the past) presents to the ED with lower abdominal pain and urinary retention. Patient with history of dementia therefore HPI taken from prior notes and nursing staff. Patient has an indwelling Herron catheter that was changed by visiting nurse however no urine was flowing when he woke up in the morning even after it was flushed. Of note patient was just recently hospitalized last few weeks for a UTI. Patient currently denies any fever, chills, headache, shortness of breath, cough, chest pain, abdominal pain, nausea, vomiting, or diarrhea. 12 point ROS is limited due to dementia however performed and otherwise negative PMHx: metastatic prostate cancer s/p ADT and palliative radiation on Lupron, seizures, glaucoma, dementia, UTI w/ indwelling herron (+ for E.coli, Klebsiella, and Enterococcus) PSH: b/l cataract surgery Home meds: refer to [facility] Allergies: NKA SocHx: Denies EtOH, drug or tobacco use. Patient lives at home and has a 24 hr home care associate. he is not active and is wheelchair bound. FamHx: non-contributory Present on Admission - Present on Admission Any Indicators Present on Admission: No Review of Systems - Review of Systems All systems: reviewed and no additional remarkable complaints except Past Patient History - Infectious Disease Hx of Infectious Diseases: None - Past Social History Smoking Status: Unknown If Ever Smoked - CARDIAC Hx Pacemaker: No - PULMONARY Hx Respiratory Disorders: Yes (H/O SMOKING CIGARETTES) Other/Comment: EMPYEMA/SARCOIDOSIS - NEUROLOGICAL Hx Dizziness: Yes (syncope) Hx Seizures: Yes (last seizure 20 yrs ago) - HEENT Hx Cataracts: Yes (with bilateral sx) - RENAL Hx Chronic Kidney Disease: Yes Other/Comment: chronic herron-Prostate ca. - ENDOCRINE/METABOLIC Hx Endocrine Disorders: No - HEMATOLOGICAL/ONCOLOGICAL Hx Cancer: Yes (prostate) - INTEGUMENTARY Hx Dermatological Problems: Yes - MUSCULOSKELETAL/RHEUMATOLOGICAL Hx Falls: No - GASTROINTESTINAL Hx Gastrointestinal Disorders: No - GENITOURINARY/GYNECOLOGICAL Hx Genitourinary Disorders: Yes (UTI,CHRONIC HERRON CATHETER) - PSYCHIATRIC Hx Psychophysiologic Disorder: Yes - SURGICAL HISTORY Hx Mastectomy: No - ANESTHESIA Hx Anesthesia: No Meds Home Medications: Home Medication List Medication Instructions Recorded Confirmed Type Penicillin VK [Penicillin VK Tab] 500 mg PO BID #20 tab 06/16/18 Rx Allergies/Adverse Reactions: Allergies Allergy/AdvReac Type Severity Reaction Status Date / Time No Known Allergies Allergy Verified 05/27/18 18:01 Physical Exam - Constitutional Appears: No Acute Distress - Head Exam Head Exam: ATRAUMATIC, NORMOCEPHALIC - Eye Exam Eye Exam: EOMI, PERRL - ENT Exam ENT Exam: Mucous Membranes Moist - Respiratory Exam Respiratory Exam: Clear to Auscultation Bilateral. absent: Rales, Rhonchi, Wheezes - Cardiovascular Exam Cardiovascular Exam: REGULAR RHYTHM, +S1, +S2 - GI/Abdominal Exam GI & Abdominal Exam: Normal Bowel Sounds, Soft. absent: Tenderness - Extremities Exam Extremities exam: Negative for: calf tenderness, pedal edema - Neurological Exam Neurological exam: Alert, CN II-XII Intact, Oriented x3 - Psychiatric Exam Psychiatric exam: Normal Mood - Skin Skin Exam: Dry, Warm Results - Vital Signs Recent Vital Signs: Last Vital Signs Temp 98.2 F 06/16/18 09:46 Pulse 86 06/17/18 02:59 Resp 20 06/17/18 02:59 BP 129/60 06/16/18 21:44 Pulse Ox 96 06/16/18 21:44 - Labs Result Diagrams: 06/17/18 08:30 06/17/18 08:30 Labs: Laboratory Results - last 24 hr 06/16/18 06/16/18 06/16/18 10:20 11:40 16:03 WBC 10.0 D RBC 3.14 L Hgb 9.6 L Hct 28.1 L MCV 89.5 MCH 30.6 MCHC 34.2 RDW 13.2 Plt Count 202 MPV 9.1 Neut % (Auto) 59.9 Lymph % (Auto) 31.5 [place] % (Auto) 7.9 H Eos % (Auto) 0.6 L Baso % (Auto) 0.1 Lymph # (Auto) 3.2 [place] # (Auto) 0.8 H Eos # (Auto) 0.1 Baso # (Auto) 0.01 Absolute Neuts (auto) 6.00 Sodium 126 L Potassium 4.8 Chloride 94 L Carbon Dioxide 24 Anion Gap 14 BUN 37 H Creatinine 0.8 Est GFR ( Amer) > 60 Est GFR (Non-Af Amer) > 60 Random Glucose 85 Calcium 9.0 Iron TIBC % Saturation Ferritin Total Bilirubin 0.3 AST 34 ALT 12 Alkaline Phosphatase 136 H D Total Protein 7.7 Albumin 3.9 Globulin 3.8 Albumin/Globulin Ratio 1.0 L Urine Color Brown Urine Appearance Turbid Urine pH 7.0 Ur Specific [place] 1.015 Urine Protein >=300 H Urine Glucose (UA) 500 H Urine Ketones 15 H Urine Blood Large H Urine Nitrate Positive H Urine Bilirubin Large H Urine Urobilinogen 4.0 H Ur Leukocyte Esterase Large H Urine RBC Tntc H Urine WBC Tntc H Urine Bacteria Large 06/16/18 06/16/18 16:03 17:00 WBC RBC Hgb Hct MCV MCH MCHC RDW Plt Count MPV Neut % (Auto) Lymph % (Auto) [place] % (Auto) Eos % (Auto) Baso % (Auto) Lymph # (Auto) [place] # (Auto) Eos # (Auto) Baso # (Auto) Absolute Neuts (auto) Sodium Potassium Chloride Carbon Dioxide Anion Gap BUN Creatinine Est GFR ( Amer) Est GFR (Non-Af Amer) Random Glucose Calcium Iron 32 L TIBC 215 L % Saturation 15 L Ferritin 267.0 Total Bilirubin AST ALT Alkaline Phosphatase Total Protein Albumin Globulin Albumin/Globulin Ratio Urine Color Urine Appearance Urine pH Ur Specific [place] Urine Protein Urine Glucose (UA) Urine Ketones Urine Blood Urine Nitrate Urine Bilirubin Urine Urobilinogen Ur Leukocyte Esterase Urine RBC Urine WBC Urine Bacteria Assessment & Plan - Assessment and Plan (Free Text) Assessment: 1. Abdominal pain likely secondary to urinary retention 2. Urinary tract infection 3. Hyponatremia 4. History of metastatic prostate cancer 5. Seizure 6. HLD 7. Dementia 8. Chronic pain Patient reports that his abdominal pain is currently better. Urology was consulted for their recommendations regarding urinary retention. He was also started on vancomycin and Zosyn for his UTI, infectious disease was consulted for recommendations. Continue with fentanyl and oxycodone for chronic pain. Continue with Lopid for his hyperlipidemia. Continue with carbamazepine for his seizures. For the patient's hyponatremia of 126 workup including serum osmolarity, urine osmolarity, and urine sodium was ordered.GI and DVT prophylaxis. Heart healthy diet. Continue to monitor for any changes. Case and plan was reviewed and discussed with Dr. Bae. <Kenny Bae - Last Filed: 06/17/18 18:44> Results - Vital Signs Recent Vital Signs: Last Vital Signs Temp 98.4 F 06/17/18 12:00 Pulse 87 06/17/18 12:00 Resp 18 06/17/18 12:00 BP 130/54 L 06/17/18 12:00 Pulse Ox 96 06/16/18 21:44 - Labs Result Diagrams: 06/17/18 08:30 06/17/18 08:30 Labs: Laboratory Results - last 24 hr 06/16/18 06/17/18 06/17/18 17:00 08:30 08:30 WBC 6.4 D RBC 3.09 L Hgb 9.3 L Hct 28.1 L MCV 90.9 MCH 30.1 MCHC 33.1 RDW 13.5 Plt Count 203 MPV 8.6 Neut % (Auto) 41.5 L Lymph % (Auto) 46.9 H [place] % (Auto) 9.7 H Eos % (Auto) 1.9 Baso % (Auto) 0.0 Lymph # (Auto) 3.0 [place] # (Auto) 0.6 Eos # (Auto) 0.1 Baso # (Auto) 0.00 Absolute Neuts (auto) 2.64 Sodium 132 Potassium 4.7 Chloride 99 Carbon Dioxide 26 Anion Gap 12 BUN 37 H Creatinine 0.8 Est GFR ( Amer) > 60 Est GFR (Non-Af Amer) > 60 Random Glucose 88 Serum Osmolality Calcium 9.3 Ferritin 267.0 Total Bilirubin 0.3 AST 43 ALT 7 Alkaline Phosphatase 122 Total Protein 7.4 Albumin 3.7 Globulin 3.7 Albumin/Globulin Ratio 1.0 L 06/17/18 10:10 WBC RBC Hgb Hct MCV MCH MCHC RDW Plt Count MPV Neut % (Auto) Lymph % (Auto) [place] % (Auto) Eos % (Auto) Baso % (Auto) Lymph # (Auto) [place] # (Auto) Eos # (Auto) Baso # (Auto) Absolute Neuts (auto) Sodium Potassium Chloride Carbon Dioxide Anion Gap BUN Creatinine Est GFR ( Amer) Est GFR (Non-Af Amer) Random Glucose Serum Osmolality 281 Calcium Ferritin Total Bilirubin AST ALT Alkaline Phosphatase Total Protein Albumin Globulin Albumin/Globulin Ratio Assessment & Plan - Assessment and Plan (Free Text) Assessment: Pt seen and examined by me. I have reviewed the note of the medical leader and I agree with it. I have discussed the assessment and plan with the resident. I have reviewed the medications and the last labs. Pt with urinary retention. His herron is not draining properly and has gross hematuria. He may have a UTI. Will need urology evaluation. He has hyponatremia and will need further evaluation. He has a hx of Prostate Ca. Sz d/o controlled with Carbamazene. He was started on IV Vanco and Zosyn in the ER. Will ID evaluation
[2018-06-17] MEDS: Vancomycin 1gm in NS 250ml 1 GM/250 ML BAG IVPB SCH ×2 (08:40→21:25)
[2018-06-17 08:59] LABS: EOS # 0.1 (0.0-0.7); EOS % 1.9 % (1.5-5.0); HEMOGLOBIN 9.3 g/dL (14.0-18.0); LYMPH % 46.9 % (22.0-35.0); MEAN CELL VOLUME 90.9 fl (80.0-105.0); MEAN CORPUSCULAR HEMOGLOBIN 30.1 pg (25.0-35.0); MEAN CORPUSCULAR HGB CONC 33.1 g/dl (31.0-37.0); MEAN PLATELET VOLUME 8.6 fl (7.0-11.0); MONO # 0.6 (0.1-0.6); MONO % 9.7 % (1.0-6.0); RBC 3.09 10^6/uL (3.5-6.1); RED CELL DISTRIBUTION WIDTH 13.5 % (11.5-14.5); WHITE BLOOD COUNT 6.4 10^3/uL (4.5-11.0)
[2018-06-17] MEDS: Enoxaparin 40 mg Syringe SC SCH (09:11)
[2018-06-17 09:29] LABS: ALBUMIN 3.7 g/dL (3.0-4.8); ALT/SGPT 7 U/L (7-56); AST/SGOT 43 U/L (17-59); BLOOD UREA NITROGEN 37 mg/dL (7-21); CALCIUM 9.3 mg/dL (8.4-10.5); GFR NON-AFRICAN AMERICAN > 60
[2018-06-17] MEDS: Piperacillin/Tazobact 3.375 gm 100 ML IVPB SCH ×3 (10:30→22:23)
--- NOTE | 2018-06-17 13:19 | CP.PCM.CON ---
History of Present Illness - History of Present Illness History of Present Illness: 88 year old male with PMH of prostate cancer with metastasis on Lupron treatment (hormonal treatment) and radiation therapy to the pelvic area and lumbar spine, seizure disorder, glaucoma, history of Klebsiella UTI, history of Proteus b acteremia came in to [facility] because of hematuria as well as lower abdominal pain and urinary retention. A visiting nurse replaced his Holland but urinary flow was poor. He denies fever or chills, no headache or dizziness, feels tired, no chest pain, no rhinorrhea, no cough, no diarrhea. Infectious diseases consult is requested to further evaluate and manage. Past Medical and surgical history: as above Personal and social history: denies alcohol abuse, no illicit drug use, no smoking family history: non-contributory Review of Systems - Review of Systems All systems: reviewed and no additional remarkable complaints except (as per HPI) Past Patient History - Infectious Disease Hx of Infectious Diseases: None - Past Social History Smoking Status: Unknown If Ever Smoked - CARDIAC Hx Pacemaker: No - PULMONARY Hx Respiratory Disorders: Yes (H/O SMOKING CIGARETTES) Other/Comment: EMPYEMA/SARCOIDOSIS - NEUROLOGICAL Hx Dizziness: Yes (syncope) Hx Seizures: Yes (last seizure 20 yrs ago) - HEENT Hx Cataracts: Yes (with bilateral sx) - RENAL Hx Chronic Kidney Disease: Yes Other/Comment: chronic holland-Prostate ca. - ENDOCRINE/METABOLIC Hx Endocrine Disorders: No - HEMATOLOGICAL/ONCOLOGICAL Hx Cancer: Yes (prostate) - INTEGUMENTARY Hx Dermatological Problems: Yes - MUSCULOSKELETAL/RHEUMATOLOGICAL Hx Falls: No - GASTROINTESTINAL Hx Gastrointestinal Disorders: No - GENITOURINARY/GYNECOLOGICAL Hx Genitourinary Disorders: Yes (UTI,CHRONIC HOLLAND CATHETER) - PSYCHIATRIC Hx Psychophysiologic Disorder: Yes - SURGICAL HISTORY Hx Mastectomy: No - ANESTHESIA Hx Anesthesia: No Meds Home Medications: Home Medication List Medication Instructions Recorded Confirmed Type Penicillin VK [Penicillin VK Tab] 500 mg PO BID #20 tab 06/16/18 Rx Allergies/Adverse Reactions: Allergies Allergy/AdvReac Type Severity Reaction Status Date / Time No Known Allergies Allergy Verified 05/27/18 18:01 - Medications Medications: Current Medications Carbamazepine (Tegretol) 200 mg PO TID [facility]; Protocol Last Admin: 06/17/18 09:10 Dose: 200 mg Enoxaparin Sodium (Lovenox) 40 mg SC DAILY [facility]; Protocol Last Admin: 06/17/18 09:11 Dose: 40 mg Fentanyl (Duragesic) 1 patch TD Q72 TARA Gemfibrozil (Lopid) 600 mg PO BID TARA Last Admin: 06/17/18 09:11 Dose: 600 mg Vancomycin HCl (Vancomycin 1gm) 1 gm in 250 mls @ 167 mls/hr IVPB Q12H TARA; Protocol Last Admin: 06/17/18 08:40 Dose: 167 mls/hr Piperacillin Sod/Tazobactam Sod (Zosyn 3.375 In Ns 100ml) 100 mls @ 25 mls/hr IVPB Q8 TARA; Protocol Stop: 06/17/18 17:59 Oxycodone/Acetaminophen (Percocet 5/325 Mg Tab) 1 tab PO Q4H PRN PRN Reason: Pain, moderate (4-7) Stop: 06/19/18 15:38 Pantoprazole Sodium (Protonix Ec Tab) 40 mg PO 0600 TARA Physical Exam - Constitutional Appears: Chronically Ill - Head Exam Head Exam: NORMAL INSPECTION - Neck Exam Neck exam: Negative for: Meningismus - Respiratory Exam Respiratory Exam: Decreased Breath Sounds - Cardiovascular Exam Cardiovascular Exam: +S1, +S2 - GI/Abdominal Exam GI & Abdominal Exam: Soft. absent: Tenderness Additional comments: Holland catheter in place with hematuria noted Results - Vital Signs Recent Vital Signs: Last Vital Signs Temp 98.2 F 06/16/18 09:46 Pulse 86 06/17/18 02:59 Resp 20 06/17/18 02:59 BP 129/60 06/16/18 21:44 Pulse Ox 96 06/16/18 21:44 - Labs Result Diagrams: 06/17/18 08:30 06/17/18 08:30 Labs: Laboratory Results - last 24 hr 06/16/18 06/16/18 06/16/18 10:20 11:40 16:03 WBC 10.0 D RBC 3.14 L Hgb 9.6 L Hct 28.1 L MCV 89.5 MCH 30.6 MCHC 34.2 RDW 13.2 Plt Count 202 MPV 9.1 Neut % (Auto) 59.9 Lymph % (Auto) 31.5 [place] % (Auto) 7.9 H Eos % (Auto) 0.6 L Baso % (Auto) 0.1 Lymph # (Auto) 3.2 [place] # (Auto) 0.8 H Eos # (Auto) 0.1 Baso # (Auto) 0.01 Absolute Neuts (auto) 6.00 Sodium 126 L Potassium 4.8 Chloride 94 L Carbon Dioxide 24 Anion Gap 14 BUN 37 H Creatinine 0.8 Est GFR ( Amer) > 60 Est GFR (Non-Af Amer) > 60 Random Glucose 85 Calcium 9.0 Iron TIBC % Saturation Ferritin Total Bilirubin 0.3 AST 34 ALT 12 Alkaline Phosphatase 136 H D Total Protein 7.7 Albumin 3.9 Globulin 3.8 Albumin/Globulin Ratio 1.0 L Urine Color Brown Urine Appearance Turbid Urine pH 7.0 Ur Specific [place] 1.015 Urine Protein >=300 H Urine Glucose (UA) 500 H Urine Ketones 15 H Urine Blood Large H Urine Nitrate Positive H Urine Bilirubin Large H Urine Urobilinogen 4.0 H Ur Leukocyte Esterase Large H Urine RBC Tntc H Urine WBC Tntc H Urine Bacteria Large 06/16/18 06/16/18 06/17/18 16:03 17:00 08:30 WBC 6.4 D RBC 3.09 L Hgb 9.3 L Hct 28.1 L MCV 90.9 MCH 30.1 MCHC 33.1 RDW 13.5 Plt Count 203 MPV 8.6 Neut % (Auto) 41.5 L Lymph % (Auto) 46.9 H [place] % (Auto) 9.7 H Eos % (Auto) 1.9 Baso % (Auto) 0.0 Lymph # (Auto) 3.0 [place] # (Auto) 0.6 Eos # (Auto) 0.1 Baso # (Auto) 0.00 Absolute Neuts (auto) 2.64 Sodium Potassium Chloride Carbon Dioxide Anion Gap BUN Creatinine Est GFR ( Amer) Est GFR (Non-Af Amer) Random Glucose Calcium Iron 32 L TIBC 215 L % Saturation 15 L Ferritin 267.0 Total Bilirubin AST ALT Alkaline Phosphatase Total Protein Albumin Globulin Albumin/Globulin Ratio Urine Color Urine Appearance Urine pH Ur Specific [place] Urine Protein Urine Glucose (UA) Urine Ketones Urine Blood Urine Nitrate Urine Bilirubin Urine Urobilinogen Ur Leukocyte Esterase Urine RBC Urine WBC Urine Bacteria Assessment & Plan - Assessment and Plan (Free Text) Plan: Assessment consider complicated UTI with hematuria in this patient with indwelling Holland catheter and prostate cancer history of sepsis due to complicated UTI in this patient with indwelling Holland catheter and metastatic prostate cancer, grew Proteus and E. faecalis in the urine, clinically improved history of Proteus bacteremia, source unclear, concerned about intra-abdominal infection history of UTI in this patient with prostate cancer with metastasis history of Klebsiella urinary tract infection Mechanical fall, etiology to be determined prostate cancer on Lupron treatment once a month (hormonal treatment) seizure disorder glaucoma Plan patient started on Vancomycin and Zosyn based on previous cultures and will follow up blood and urine cx follow up Urology evaluation and recommendations will monitor clinically
--- NOTE | 2018-06-17 21:54 | CON ---
DATE OF CONSULTATION: 06/17/2018 GENITOURINARY CONSULTATION CHIEF COMPLAINT: Urinary retention. HISTORY OF PRESENT ILLNESS: This is an 88-year-old male, who is known to me. The patient has metastatic castrate-resistant prostate cancer. He has been on androgen deprivation therapy for years, recently received radiation therapy for bone metastases. The patient has not been seen in my office in over a year, although he was recommended to follow up there for advanced hormonal therapy. It is unclear when the patient has received his last hormonal therapy treatment. However, his prostate cancer appears to be progressing. The patient has a long history of urinary retention with an indwelling Bray for many years. The Bray has been changed monthly by VNS also for many years, by report Bray catheter was recently changed, it was not draining well. VNS came back and changed it again, when it still had a problem, the patient was then transferred to the emergency room, catheter was again changed, and by report from the ER, his catheter drained about 1200 mL. He is now admitted for further observation. consultation was requested regarding the above. PAST MEDICAL HISTORY: Significant for metastatic prostate cancer castrate-resistant, dementia, seizures, glaucoma, chronic urinary tract infection, urinary retention with indwelling Bray catheter. MEDICATIONS: Include Duragesic patch, Lopid, Lovenox, Percocet, Protonix, Tegretol, vancomycin, and Zosyn. ALLERGIES: NO KNOWN DRUG ALLERGIES. FAMILY HISTORY: Noncontributory for this admission. SOCIAL HISTORY: No smoking or EtOH use. REVIEW OF SYSTEMS: Review of systems is obtained from the patient; however, the patient has dementia and is a poor historian. His only complaint appeared to be the catheter and some gross hematuria. Otherwise, he denies any acute medical issues. PHYSICAL EXAMINATION: GENERAL: The patient is awake. He is in no acute distress. He is afebrile. VITAL SIGNS: Temperature of 98.4, pulse 88, respirations 16, BP 130/54. NECK: His neck is supple. There is no adenopathy. CHEST: Exam of the chest reveals slightly decreased inspiratory effort. CARDIAC: Exam shows positive S1, S2. There is [id number] edema of his lower extremities. ABDOMEN: Soft, nontender, nondistended. There is no hepatosplenomegaly or costovertebral angle tenderness. GENITOURINARY: Phallus with mild edema. There is a Bray catheter in place, which is draining lightly blood-tinged urine. Scrotum, mild edema. Testes bilaterally descended, atrophic, nontender without mass. Epididymis are normal. EXTREMITIES: No cyanosis, but mild edema. LABORATORY DATA: WBC count was 10, it came down to 6.4 today. Creatinine 0.8 with a GFR greater than 60. Urinalysis, too numerous to count rbc's, wbc's, positive nitrites. On radiologic exam, no pertinent urologic imaging was done. IMPRESSION AND PLAN: This is an 88-year-old male with castrate-resistant metastatic prostate cancer. The patient is currently a DNR and a DNI. His last PSA was on 05/29/2018 of 99.1. Testosterone level on 05/29/2018 was 31. As for the urinary retention, Bray catheter is now being changed. I flushed the Bray catheter copiously with normal saline and removed few small clots. Bray is now draining well. The patient should continue the Bray catheter drainage, and this should be changed monthly by VNS. As for his prostate cancer, I would recommend Oncology consult with Dr. Solomon, who I believe has seen him in the past. The patient is unable to get to my office, and therefore, I would be unable to start him on any advanced therapies, such as or Zytiga, and if these are not on formulary at the hospital, but possibly Dr. Solomon could obtain and start him on whichever is appropriate. Given the patient's DNR/DNI status, they may not be advisable, as these medications may have significant side effects at this time. I would recommend the patient to continue on leuprolide at least, and it is unclear whether he has been receiving this medication or not. Unfortunately, given the patient's condition and his age, his condition is poor, and there is not any acute urologic intervention necessary at this time. However, I would have Oncology consultation as possibly they can offer him some advanced therapy while he is hospitalized. Henry Nascimento MD
--- NOTE | 2018-06-17 22:52 | CARD ---
APPROVED REPORT Date of service: 06/16/2018 EKG Measurement Heart [id number] <Conclusion> Normal sinus rhythm Left axis deviation Inferior infarct, age undetermined Abnormal ECG
[2018-06-18] MEDS: Piperacillin/Tazobact 3.375 gm 100 ML IVPB SCH ×3 (05:19→21:41)
[2018-06-18] MEDS: Pantoprazole 40 mg EC Tab PO SCH (05:19)
[2018-06-18 07:37] LABS: BASO # 0.01 K/mm3 (0.0-2.0); BASO % 0.2 % (0.0-3.0); EOS # 0.1 (0.0-0.7); LYMPH # 2.9 (1.2-3.4); MEAN CELL VOLUME 92.6 fl (80.0-105.0); MEAN CORPUSCULAR HEMOGLOBIN 30.2 pg (25.0-35.0); MEAN CORPUSCULAR HGB CONC 32.6 g/dl (31.0-37.0); MEAN PLATELET VOLUME 8.6 fl (7.0-11.0); MONO # 0.5 (0.1-0.6); MONO % 9.2 % (1.0-6.0); RBC 2.98 10^6/uL (3.5-6.1); RED CELL DISTRIBUTION WIDTH 13.6 % (11.5-14.5); WHITE BLOOD COUNT 5.9 10^3/uL (4.5-11.0)
--- NOTE | 2018-06-18 08:42 | PQF ---
PROVIDER RESPONSE TEXT: Catheter associated UTI REVIEWER QUERY TEXT: Documentation Clarification Your help is requested in clarifying the following clinical documentation, if you can please further specify in the medical record and discharge summary. The patient's Clinical Indicators include: Patient admitted with UTI. Your consult notes "complicated UTI with indwelling holland catheter". Please specify if this term is indicative of a catheter associated UTI. Query created by: Ivanna Taylor on 06/18/2018 8:36 AM Electronically signed by: Yobani Richmond MD 06/18/2018 8:39 AM
--- NOTE | 2018-06-18 08:45 | CP.PCM.PN ---
<Rivas Armendariz - Last Filed: 06/18/18 16:06> Subjective - Date & Time of Evaluation Date of Evaluation: 06/18/18 Time of Evaluation: 07:30 - Subjective Subjective: Medicine progress note: Patient seen and examined at bedside. No acute events overnight. Patient with history of dementia therefore HPI limited. C/o of some abd pain however denies any other complaints. 12 point ROS performed and negative other than stated above however limited to dementia Objective - Vital Signs/Intake and Output Vital Signs (last 24 hours): Temp Pulse Resp BP Pulse Ox 98.2 F 94 H 20 134/57 L 20 L 06/18/18 06:00 06/18/18 06:00 06/18/18 00:01 06/18/18 06:00 06/18/18 06:00 Intake and Output: 06/18/18 06/18/18 06:59 18:59 Intake Total 1680 Output Total 3125 Balance -1445 - Medications Medications: Current Medications Carbamazepine (Tegretol) 200 mg PO TID [facility]; Protocol Last Admin: 06/17/18 17:29 Dose: 200 mg Enoxaparin Sodium (Lovenox) 40 mg SC DAILY [facility]; Protocol Last Admin: 06/17/18 09:11 Dose: 40 mg Fentanyl (Duragesic) 1 patch TD Q72 [facility] Gemfibrozil (Lopid) 600 mg PO BID [facility] Last Admin: 06/17/18 17:29 Dose: 600 mg Vancomycin HCl (Vancomycin 1gm) 1 gm in 250 mls @ 167 mls/hr IVPB Q12H [facility]; Protocol Last Admin: 06/17/18 21:25 Dose: 167 mls/hr Piperacillin Sod/Tazobactam Sod (Zosyn 3.375 In Ns 100ml) 100 mls @ 25 mls/hr IVPB Q8 [facility]; Protocol Stop: 06/24/18 07:46 Last Admin: 06/18/18 05:19 Dose: 25 mls/hr Oxycodone/Acetaminophen (Percocet 5/325 Mg Tab) 1 tab PO Q4H PRN PRN Reason: Pain, moderate (4-7) Stop: 06/19/18 15:38 Pantoprazole Sodium (Protonix Ec Tab) 40 mg PO 0600 [facility] Last Admin: 06/18/18 05:19 Dose: 40 mg - Labs Labs: 02/20/19 07:25 06/17/18 08:30 - Constitutional Appears: No Acute Distress - Head Exam Head Exam: ATRAUMATIC, NORMOCEPHALIC - Eye Exam Eye Exam: EOMI - ENT Exam ENT Exam: Mucous Membranes Moist - Respiratory Exam Respiratory Exam: Clear to Ausculation Bilateral. absent: Rales, Rhonchi, W heezes - Cardiovascular Exam Cardiovascular Exam: REGULAR RHYTHM, +S1, +S2 - GI/Abdominal Exam GI & Abdominal Exam: Soft. absent: Tenderness - Exam Exam: absent: Bladder Distension - Extremities Exam Extremities Exam: absent: Calf Tenderness, Pedal Edema - Neurological Exam Neurological Exam: Alert, Awake, Oriented x3 - Psychiatric Exam Psychiatric exam: Normal Mood - Skin Skin Exam: Dry, Warm Assessment and Plan - Assessment and Plan (Free Text) Assessment: 1. Abdominal pain likely secondary to urinary retention 2. Urinary tract infection 3. Hyponatremia 4. History of metastatic prostate cancer 5. Seizure 6. HLD 7. Dementia 8. Chronic pain Ordered a CT abd and pelvis for abd pain. Holland catheter was changed and now functioning properly, as per urology patient to have the catheter changed on a monthly basis with VNS. Urology was consulted for their recommendations - Cont leupron. He was also started on vancomycin and Zosyn for his UTI, infectious disease was consulted for recommendations. Awaiting urine cultures. Continue wit h fentanyl and oxycodone for chronic pain. Continue with Lopid for his hyperlipidemia. Continue with carbamazepine for his seizures. We will follow- up with hyponatremia workup. GI and DVT prophylaxis. Heart healthy diet. Continue to monitor for any changes. Case and plan was reviewed and discussed with Dr. Bae. <Kenny Bae - Last Filed: 06/18/18 20:49> Objective - Vital Signs/Intake and Output Vital Signs (last 24 hours): Temp Pulse Resp BP Pulse Ox 98.3 F 92 H 18 127/53 L 96 06/18/18 18:00 06/18/18 18:00 06/18/18 18:00 06/18/18 18:00 06/18/18 10:55 Intake and Output: 06/18/18 06/19/18 18:59 06:59 Intake Total 1260 350 Output Total 1200 Balance 60 350 - Medications Medications: Current Medications Carbamazepine (Tegretol) 200 mg PO TID [facility]ARA; Protocol Last Admin: 06/18/18 17:58 Dose: 200 mg Enoxaparin Sodium (Lovenox) 40 mg SC DAILY [facility]; Protocol Last Admin: 06/18/18 10:50 Dose: 40 mg Fentanyl (Duragesic) 1 patch TD Q72 TARA Gemfibrozil (Lopid) 600 mg PO BID [facility] Last Admin: 06/18/18 17:58 Dose: 600 mg Vancomycin HCl (Vancomycin 1gm) 1 gm in 250 mls @ 167 mls/hr IVPB Q12H [facility]; Protocol Last Admin: 06/18/18 10:50 Dose: 167 mls/hr Piperacillin Sod/Tazobactam Sod (Zosyn 3.375 In Ns 100ml) 100 mls @ 25 mls/hr IVPB Q8 [facility]; Protocol Stop: 06/24/18 07:46 Last Admin: 06/18/18 13:42 Dose: 25 mls/hr Oxycodone/Acetaminophen (Percocet 5/325 Mg Tab) 1 tab PO Q4H PRN PRN Reason: Pain, moderate (4-7) Stop: 06/19/18 15:38 Pantoprazole Sodium (Protonix Ec Tab) 40 mg PO 0600 [facility] Last Admin: 06/18/18 05:19 Dose: 40 mg - Labs Labs: 06/18/18 07:25 06/18/18 07:25 Assessment and Plan - Assessment and Plan (Free Text) Assessment: Pt seen and examined by me. I have reviewed the note of the clinical medical assistant and I agree with it. I have discussed the assessment and plan with the resident. I have reviewed the medications and the last labs. Pt with holland catheter dysfunction. His holland was replaced. He had gross hematuria and that is improving. He as a UTI and is on IV Abx. He has hx of prostate cancer and follows with Dr Nascimento. Pt's hyponatremia is better. His Sz d/o is controlled with Carbamazepine. He is on Fentanyl and oxycodone for chronic pain. He is Lopid for hyperlipidemia.
[2018-06-18 09:33] LABS: ALBUMIN 3.8 g/dL (3.0-4.8); ALT/SGPT 10 U/L (7-56); AST/SGOT 48 U/L (17-59); BLOOD UREA NITROGEN 31 mg/dL (7-21); CALCIUM 9.3 mg/dL (8.4-10.5); GFR NON-AFRICAN AMERICAN > 60
[2018-06-18] MEDS: Enoxaparin 40 mg Syringe SC SCH (10:50)
[2018-06-18] MEDS: Vancomycin 1gm in NS 250ml 1 GM/250 ML BAG IVPB SCH ×2 (10:50→21:41)
--- NOTE | 2018-06-18 15:32 | CP.PCM.PN ---
Subjective - Date & Time of Evaluation Date of Evaluation: 06/18/18 Time of Evaluation: 09:30 - Subjective Subjective: No fevers, no abdominal pain currently, no nausea. Objective - Vital Signs/Intake and Output Vital Signs (last 24 hours): Temp Pulse Resp BP Pulse Ox 98.4 F 87 18 130/54 L 96 06/17/18 12:00 06/17/18 12:00 06/17/18 12:00 06/17/18 12:00 06/16/18 21:44 Intake and Output: 06/17/18 06/17/18 06:59 18:59 Intake Total 0 Output Total 150 Balance -150 - Medications Medications: Current Medications Carbamazepine (Tegretol) 200 mg PO TID [facility]; Protocol Last Admin: 06/17/18 09:10 Dose: 200 mg Enoxaparin Sodium (Lovenox) 40 mg SC DAILY [facility]; Protocol Last Admin: 06/17/18 09:11 Dose: 40 mg Fentanyl (Duragesic) 1 patch TD Q72 TARA Gemfibrozil (Lopid) 600 mg PO BID [facility] Last Admin: 06/17/18 09:11 Dose: 600 mg Vancomycin HCl (Vancomycin 1gm) 1 gm in 250 mls @ 167 mls/hr IVPB Q12H [facility]; Protocol Last Admin: 06/17/18 08:40 Dose: 167 mls/hr Piperacillin Sod/Tazobactam Sod (Zosyn 3.375 In Ns 100ml) 100 mls @ 25 mls/hr IVPB Q8 [facility]; Protocol Stop: 06/24/18 07:46 Last Admin: 06/17/18 10:30 Dose: 25 mls/hr Oxycodone/Acetaminophen (Percocet 5/325 Mg Tab) 1 tab PO Q4H PRN PRN Reason: Pain, moderate (4-7) Stop: 06/19/18 15:38 Pantoprazole Sodium (Protonix Ec Tab) 40 mg PO 0600 TARA - Labs Labs: 06/17/18 08:30 06/17/18 08:30 - Constitutional Appears: Chronically Ill - Head Exam Head Exam: NORMAL INSPECTION - Respiratory Exam Respiratory Exam: Decreased Breath Sounds - Cardiovascular Exam Cardiovascular Exam: +S1, +S2 - GI/Abdominal Exam GI & Abdominal Exam: Soft. absent: Tenderness Assessment and Plan - Assessment and Plan (Free Text) Plan: Assessment consider complicated UTI with hematuria in this patient with indwelling Bray catheter and prostate cancer history of sepsis due to complicated UTI in this patient with indwelling Bray catheter and metastatic prostate cancer, grew Proteus and E. faecalis in the urine, clinically improved history of Proteus bacteremia, source unclear, concerned about intra-abdominal infection history of UTI in this patient with prostate cancer with metastasis history of Klebsiella urinary tract infection Mechanical fall, etiology to be determined prostate cancer on Lupron treatment once a month (hormonal treatment) seizure disorder glaucoma Plan continue Zosyn based pending final urine cx results showing gram negative bacilli follow up Urology evaluation and recommendations will continue to monitor clinically
[2018-06-19] MEDS: Pantoprazole 40 mg EC Tab PO SCH (05:38)
[2018-06-19] MEDS: Piperacillin/Tazobact 3.375 gm 100 ML IVPB SCH (05:38)
[2018-06-19 06:59] LABS: BASO # 0.01 K/mm3 (0.0-2.0); BASO % 0.2 % (0.0-3.0); EOS # 0.1 (0.0-0.7); EOS % 1.1 % (1.5-5.0); HEMOGLOBIN 8.8 g/dL (14.0-18.0); LYMPH # 2.7 (1.2-3.4); LYMPH % 49.2 % (22.0-35.0); MEAN CELL VOLUME 92.9 fl (80.0-105.0); MEAN CORPUSCULAR HEMOGLOBIN 29.8 pg (25.0-35.0); MEAN CORPUSCULAR HGB CONC 32.1 g/dl (31.0-37.0); MEAN PLATELET VOLUME 8.8 fl (7.0-11.0); MONO # 0.5 (0.1-0.6); MONO % 8.6 % (1.0-6.0); RBC 2.95 10^6/uL (3.5-6.1); RED CELL DISTRIBUTION WIDTH 13.6 % (11.5-14.5); WHITE BLOOD COUNT 5.6 10^3/uL (4.5-11.0)
[2018-06-19 07:19] LABS: ALBUMIN 3.7 g/dL (3.0-4.8); ALT/SGPT 12 U/L (7-56); AST/SGOT 46 U/L (17-59); BLOOD UREA NITROGEN 24 mg/dL (7-21); CALCIUM 9.3 mg/dL (8.4-10.5); GFR NON-AFRICAN AMERICAN > 60
--- NOTE | 2018-06-19 09:07 | CT ---
Date of service: 06/18/2018 PROCEDURE: CT Abdomen and Pelvis without intravenous contrast HISTORY: abd pain COMPARISON: 01/27/2018 TECHNIQUE: Without contrast.. Contrast dose: 0 Radiation dose: Total exam DLP = 2275.03 mGy-cm. This CT exam was performed using one or more of the following dose reduction techniques: Automated exposure control, adjustment of the mA and/or kV according to patient size, and/or use of iterative reconstruction technique. FINDINGS: LOWER THORAX: Unremarkable. LIVER: Unremarkable. No gross lesion or ductal dilatation. GALLBLADDER AND BILE DUCTS: Partially contracted. No calcified gallstones. No mural thickening. PANCREAS: Unremarkable. No gross lesion or ductal dilatation. SPLEEN: Unremarkable. ADRENALS: Unremarkable. No mass. KIDNEYS AND URETERS: Low attenuation rounded right lower pole renal cortical mass, likely cyst, 1.7 cm. This measures 6 Hounsfield units attenuation. In retrospect, it is unchanged from prior examination. No other renal mass. No calculus or hydronephrosis. There is a new rounded soft tissue mass posterior to the upper pole of the right kidney, in the posterior para renal fat, measuring 2.3 cm in diameter. This was not seen on prior examination. It is suspicious for a hematogenous metastasis. VASCULATURE: Unremarkable. No aortic aneurysm. There is atherosclerotic calcification of the abdominal aorta. BOWEL: Unremarkable. No obstruction. No gross mural thickening. APPENDIX: Not identified. No secondary findings. PERITONEUM: Unremarkable. No free fluid. No free air. LYMPH NODES: There is retroperitoneal and pelvic lymphadenopathy new since prior examination. Retroperitoneal lymph nodes are seen measuring up to 2.7 cm diameter. There is a conglomerate mass in the superior pelvis measuring 2.7 cm. There are bilateral mildly enlarged and subcentimeter pelvic sidewall lymph nodes. BLADDER: Bladder is decompressed around a Bray catheter balloon. The bladder contents are high in attenuation suggestive of blood. REPRODUCTIVE: Enlarged prostate. BONES: Widespread sclerotic metastasis as on prior examination. No acute fracture identified. OTHER FINDINGS: None. IMPRESSION: New retroperitoneal and pelvic lymphadenopathy. New soft tissue mass in right posterior para renal fat. Likely hematogenous metastasis. Widespread sclerotic osseous metastasis unchanged. Enlarged prostate. Possible bloody content within urinary bladder lumen. Correlate with urinalysis. Minor findings as above. The preliminary findings for this examination were reported by [facility] at 7:26 p.m. on 06/18/2018.. There is discordance of this report with the preliminary findings. The finding of widespread retroperitoneal and pelvic lymphadenopathy was not described in the preliminary report of this examination. Is
[2018-06-19] MEDS: Enoxaparin 40 mg Syringe SC SCH (10:35)
--- NOTE | 2018-06-19 11:39 | CP.PCM.PN ---
<Rivas Armendariz - Last Filed: 06/19/18 11:39> Subjective - Date & Time of Evaluation Date of Evaluation: 06/19/18 Time of Evaluation: 07:00 - Subjective Subjective: Medicine progress note: Patient seen and examined at bedside. No acute events overnight. Patient still with c/o of abd pain. Denies any other complaints. 12 point ROS performed and negative other than stated above however limited to dementia Objective - Vital Signs/Intake and Output Vital Signs (last 24 hours): Temp Pulse Resp BP Pulse Ox 97.4 F L 101 H 20 131/62 96 06/19/18 06:00 06/19/18 06:00 06/19/18 06:00 06/19/18 06:00 06/18/18 10:55 Intake and Output: 06/19/18 06/19/18 06:59 18:59 Intake Total 770 Output Total 1200 Balance -430 - Medications Medications: Current Medications Carbamazepine (Tegretol) 200 mg PO TID [facility]; Protocol Last Admin: 06/19/18 10:36 Dose: 200 mg Enoxaparin Sodium (Lovenox) 40 mg SC DAILY [facility]; Protocol Last Admin: 06/19/18 10:35 Dose: 40 mg Fentanyl (Duragesic) 1 patch TD Q72 [facility]ARA Last Admin: 06/19/18 10:38 Dose: 1 patch Gemfibrozil (Lopid) 600 mg PO BID [facility] Last Admin: 06/19/18 10:35 Dose: 600 mg Meropenem (Merrem Iv 1 Gm Premix) 1 gm in 50 mls @ 100 mls/hr IVPB Q8 [facility]; Protocol Oxycodone/Acetaminophen (Percocet 5/325 Mg Tab) 1 tab PO Q4H PRN PRN Reason: Pain, moderate (4-7) Stop: 06/19/18 15:38 Pantoprazole Sodium (Protonix Ec Tab) 40 mg PO 0600 [facility] Last Admin: 06/19/18 05:38 Dose: 40 mg - Labs Labs: 06/19/18 06:15 06/19/18 06:15 - Constitutional Appears: No Acute Distress - Head Exam Head Exam: ATRAUMATIC, NORMOCEPHALIC - Eye Exam Eye Exam: EOMI, PERRL - ENT Exam ENT Exam: Mucous Membranes Moist - Respiratory Exam Respiratory Exam: Clear to Ausculation Bilateral. absent: Rales, Wheezes - Cardiovascular Exam Cardiovascular Exam: REGULAR RHYTHM, +S1, +S2 - GI/Abdominal Exam GI & Abdominal Exam: Soft, Tenderness (mild ). absent: Distended, Guarding - Extremities Exam Extremities Exam: absent: Calf Tenderness, Pedal Edema - Neurological Exam Neurological Exam: Alert, Awake - Psychiatric Exam Psychiatric exam: Normal Mood - Skin Skin Exam: Dry, Warm Assessment and Plan - Assessment and Plan (Free Text) Assessment: 1. Abdominal pain likely secondary to urinary retention 2. Urinary tract infection 3. Hyponatremia 4. History of metastatic prostate cancer 5. Seizure 6. HLD 7. Dementia 8. Chronic pain CT of the abdomen showed new retroperitoneal and pelvic lymphadenopathy. No new soft tissue mass in the right posterior pararenal fat. Likely managing this metastasis. Widespread sclerotic osseous metastasis unchanged. Enlarged prostate. Possible bloody content within urinary bladder lumen. Correlate with urinalysis. Minor findings as above. Holland catheter was changed and now functioning properly, as per urology patient to have the catheter changed on a monthly basis with VNS. Urology was consulted for their recommendations - Cont leupron. Oncology was consulted awaiting r ecommendations. Continue with Zosyn for his UTI,Urine culture growing Proteus, infectious disease was consulted for recommendations. Awaiting urine cultures. Continue with fentanyl and oxycodone for chronic pain. Continue with Lopid for his hyperlipidemia. Continue with carbamazepine for his seizures. Hyponatremia resolved. GI and DVT prophylaxis. Heart healthy diet. Continue to monitor for any changes. Case and plan was reviewed and discussed with Dr. Bae. <Kenny Bae - Last Filed: 06/20/18 19:30> Objective - Vital Signs/Intake and Output Vital Signs (last 24 hours): Temp Pulse Resp BP Pulse Ox 98.8 F 92 H 18 134/64 94 L 06/20/18 18:00 06/20/18 18:00 06/20/18 18:00 06/20/18 18:00 06/20/18 05:33 - Medications Medications: Current Medications Bacitracin (Bacitracin) 0 gm TOP BID [facility] Last Admin: 06/20/18 17:48 Dose: 1 applic Carbamazepine (Tegretol) 200 mg PO TID [facility]; Protocol Last Admin: 06/20/18 17:45 Dose: 200 mg Enoxaparin Sodium (Lovenox) 40 mg SC DAILY [facility]; Protocol Last Admin: 06/20/18 10:47 Dose: 40 mg Fentanyl (Duragesic) 1 patch TD Q72 [facility] Last Admin: 06/19/18 10:38 Dose: 1 patch Gemfibrozil (Lopid) 600 mg PO BID [facility] Last Admin: 06/20/18 17:45 Dose: 600 mg Meropenem (Merrem Iv 1 Gm Premix) 1 gm in 50 mls @ 100 mls/hr IVPB Q8 [facility]; Protocol Last Admin: 06/20/18 16:25 Dose: Not Given Pantoprazole Sodium (Protonix Ec Tab) 40 mg PO 0600 [facility] Last Admin: 06/20/18 06:18 Dose: 40 mg - Labs Labs: 06/20/18 06:50 06/20/18 06:50 Assessment and Plan - Assessment and Plan (Free Text) Assessment: Pt seen and examined by me. This is a late entry.I have reviewed the note of the medical research associate and I agree with it. I have discussed the assessment and plan with the resident. I have reviewed the medications and the last labs. Pt with abd pain due to prostate ca with meds. His hyponatremia has improved. He has a holland due to retention and BPH. His hematuria is improving and not has bloody as before. Sz is controlled with meds.
[2018-06-19] MEDS ORDERED: Meropenem IV 1 gm in NS 50 ML IVPB SCH (14:00)
[2018-06-19] MEDS: Meropenem IV 1 gm in NS 1 GM/50 ML BAG IVPB SCH ×2 (14:31→23:45)
--- NOTE | 2018-06-19 17:46 | CP.PCM.PN ---
Subjective - Date & Time of Evaluation Date of Evaluation: 06/19/18 Time of Evaluation: 11:00 - Subjective Subjective: Comfortable, afebrile. Objective - Vital Signs/Intake and Output Vital Signs (last 24 hours): Temp Pulse Resp BP Pulse Ox 98.1 F 93 H 18 140/50 L 96 06/18/18 12:00 06/18/18 12:00 06/18/18 12:00 06/18/18 12:00 06/18/18 10:55 Intake and Output: 06/18/18 06/18/18 06:59 18:59 Intake Total 1680 Output Total 3125 Balance -1445 - Medications Medications: Current Medications Carbamazepine (Tegretol) 200 mg PO TID [facility]; Protocol Last Admin: 06/18/18 13:42 Dose: 200 mg Enoxaparin Sodium (Lovenox) 40 mg SC DAILY [facility]; Protocol Last Admin: 06/18/18 10:50 Dose: 40 mg Fentanyl (Duragesic) 1 patch TD Q72 [facility]ARA Gemfibrozil (Lopid) 600 mg PO BID [facility] Last Admin: 06/18/18 10:50 Dose: 600 mg Vancomycin HCl (Vancomycin 1gm) 1 gm in 250 mls @ 167 mls/hr IVPB Q12H [facility]; Protocol Last Admin: 06/18/18 10:50 Dose: 167 mls/hr Piperacillin Sod/Tazobactam Sod (Zosyn 3.375 In Ns 100ml) 100 mls @ 25 mls/hr IVPB Q8 [facility]; Protocol Stop: 06/24/18 07:46 Last Admin: 06/18/18 13:42 Dose: 25 mls/hr Oxycodone/Acetaminophen (Percocet 5/325 Mg Tab) 1 tab PO Q4H PRN PRN Reason: Pain, moderate (4-7) Stop: 06/19/18 15:38 Pantoprazole Sodium (Protonix Ec Tab) 40 mg PO 0600 [facility] Last Admin: 06/18/18 05:19 Dose: 40 mg - Labs Labs: 06/18/18 07:25 06/18/18 07:25 - Constitutional Appears: Chronically Ill - Head Exam Head Exam: NORMAL INSPECTION - Respiratory Exam Respiratory Exam: Decreased Breath Sounds - Cardiovascular Exam Cardiovascular Exam: +S1, +S2 - GI/Abdominal Exam GI & Abdominal Exam: Soft. absent: Tenderness Assessment and Plan - Assessment and Plan (Free Text) Plan: Assessment consider complicated UTI with hematuria in this patient with indwelling Bray catheter and prostate cancer, growing Proteus history of sepsis due to complicated UTI in this patient with indwelling Bray catheter and metastatic prostate cancer, grew Proteus and E. faecalis in the urine, clinically improved history of Proteus bacteremia, source unclear, concerned about intra-abdominal infection history of UTI in this patient with prostate cancer with metastasis history of Klebsiella urinary tract infection Mechanical fall, etiology to be determined prostate cancer on Lupron treatment once a month (hormonal treatment) seizure disorder glaucoma Plan switch Zosyn to Merrem and will monitor clinically follow up Urology evaluation and recommendations
--- NOTE | 2018-06-19 21:00 | PN ---
DATE: 06/19/2018 SUBJECTIVE: The patient is seen in his room. He appears comfortable in no acute distress. Abdomen is soft, nontender, and nondistended. No rebound or guarding. On exam, phallus has mild swelling Bray catheter in place draining lightly blood-tinged urine. The patient had a CT scan done which showed retroperitoneal and pelvic adenopathy, new since prior exam, retroperitoneal nodes measuring up to 2.7 cm. There is a mass in the superior pelvis measuring 2.7 cm bilateral mildly enlarged and subcentimeter pelvic side wall lymph nodes. Urine culture positive for Proteus mirabilis. IMPRESSION AND PLAN: This is a patient with castrate-resistant metastatic prostate cancer. The patient received palliative radiation. He now appears to have progression with lymph nodes. The patient has not been able to follow up in the office due to his medical issues. I recommended Oncology consultation as possibly they could restart him on leuprolide and hopefully either Zytiga and prednisone or Xtandi. These are not on hospital formulary and I do not have access to them as an inpatient, but possibly Oncology could obtain a medication for him. Given the patient's overall condition, I do not know if he is a candidate for these therapies, possible alternative would be chemotherapy again that would be up to Oncology consult to determine. We also will need to speak with the patient's family regarding any advanced therapy as he is current DNR/do not intubate and there could be significant complications from these therapies this will need to be discussed with the patient's family to see how aggressively treatment should be pursued. I will continue to follow the patient with you. As for the hematuria, Bray catheter should be flushed every few hours with normal saline. Continue IV antibiotics for urinary infection and this should resolve. Henry Nascimento MD
--- NOTE | 2018-06-19 22:42 | CP.PCM.CON ---
History of Present Illness - History of Present Illness History of Present Illness: Surgery Consult note. Dr. Borges Re: Scalp Lesion Patient has a history of dementia and is a poor and unreliable historian. 88yo M with PMHx of Metastatic Prostate CA s/p Androgen deprivation therapy and XRT, Seizures, Glaucoma, recurrent UTIs, Dementia who was admitted due to abdominal pain and urinary retention. General surgery consult was obtained due to scalp/forehead mass. Patient states that he first noted this lesion many years ago and states that it has not changed in size. States that it first occurred after a mild trauma, however, it has not healed. He has been picking at the wound off and on. He denies any discharge or bleeding from the lesion. Denies any pruritis. Denies any discharge or drainage. No F/C. PMHx: Metastatic Prostate CA, Seizures, Glaucoma, Recurrent UTIs, Dementia PSHx: B/L Cataract surgery Family Hx: non-contributory Social Hx: Lives at home with 24 hour supervisor home energy consultant. Denies ETOH use, denies tobacco use, denies illicit drugs NKDA Review of Systems - Review of Systems Systems not reviewed;Unavailable: Dementia All systems: reviewed and no additional remarkable complaints except - Constitutional Constitutional: absent: Chills, Fever - Integumentary Integumentary: Lesions Past Patient History - Infectious Disease Hx of Infectious Diseases: None - Past Social History Smoking Status: Unknown If Ever Smoked Alcohol: None Drugs: Denies - CARDIAC Hx Hypercholesterolemia: Yes (HLD) - PULMONARY Hx Respiratory Disorders: Yes (H/O SMOKING CIGARETTES) Other/Comment: EMPYEMA/SARCOIDOSIS - NEUROLOGICAL Hx Dizziness: Yes (syncope) Hx Seizures: Yes (last seizure 20 yrs ago) - HEENT Hx Cataracts: Yes (with bilateral sx) - RENAL Hx Chronic Kidney Disease: Yes Other/Comment: chronic holland-Prostate ca. - ENDOCRINE/METABOLIC Hx Endocrine Disorders: No - HEMATOLOGICAL/ONCOLOGICAL Hx Cancer: Yes (prostate) - INTEGUMENTARY Hx Dermatological Problems: Yes - MUSCULOSKELETAL/RHEUMATOLOGICAL Hx Arthritis: Yes - GASTROINTESTINAL Hx Gastrointestinal Disorders: No - GENITOURINARY/GYNECOLOGICAL Hx Genitourinary Disorders: Yes (UTI,CHRONIC HOLLAND CATHETER) - PSYCHIATRIC Hx Psychophysiologic Disorder: Yes - SURGICAL HISTORY Hx Mastectomy: No - ANESTHESIA Hx Anesthesia: No Meds Home Medications: Home Medication List Medication Instructions Recorded Confirmed Type Penicillin VK [Penicillin VK Tab] 500 mg PO BID #20 tab 06/16/18 Rx Allergies/Adverse Reactions: Allergies Allergy/AdvReac Type Severity Reaction Status Date / Time No Known Allergies Allergy Verified 05/27/18 18:01 - Medications Medications: Current Medications Bacitracin (Bacitracin) 0 gm TOP BID TARA Carbamazepine (Tegretol) 200 mg PO TID [facility]; Protocol Last Admin: 06/19/18 18:00 Dose: 200 mg Enoxaparin Sodium (Lovenox) 40 mg SC DAILY [facility]; Protocol Last Admin: 06/19/18 10:35 Dose: 40 mg Fentanyl (Duragesic) 1 patch TD Q72 [facility] Last Admin: 06/19/18 10:38 Dose: 1 patch Gemfibrozil (Lopid) 600 mg PO BID [facility] Last Admin: 06/19/18 18:00 Dose: 600 mg Meropenem (Merrem Iv 1 Gm Premix) 1 gm in 50 mls @ 100 mls/hr IVPB Q8 [facility]; Protocol Last Admin: 06/19/18 14:31 Dose: 100 mls/hr Pantoprazole Sodium (Protonix Ec Tab) 40 mg PO 0600 [facility] Last Admin: 06/19/18 05:38 Dose: 40 mg Physical Exam - Constitutional Appears: Well, Non-toxic, No Acute Distress - Head Exam Head Exam: ATRAUMATIC, NORMAL INSPECTION, NORMOCEPHALIC - Eye Exam Eye Exam: EOMI, Normal appearance. absent: Scleral icterus - ENT Exam ENT Exam: Mucous Membranes Moist - Respiratory Exam Respiratory Exam: NORMAL BREATHING PATTERN. absent: Accessory Muscle Use, Respiratory Distress - Cardiovascular Exam Cardiovascular Exam: RRR. absent: JVD - Extremities Exam Extremities exam: Positive for: normal inspection. Negative for: calf tenderness - Neurological Exam Neurological exam: Alert - Psychiatric Exam Psychiatric exam: Normal Affect, Normal Mood - Skin Skin Exam: Dry, Intact, Normal Color, Warm Additional comments: approximately 1cm x 2cm skin lesion on scalp/forehead. No active drainage or discharge noted. Area of dry skin around site. Red flat area in the center of the lesion. Results - Vital Signs Recent Vital Signs: Last Vital Signs Temp 98 F 06/19/18 18:00 Pulse 92 H 06/19/18 18:00 Resp 20 06/19/18 18:00 BP 124/56 L 06/19/18 18:00 Pulse Ox 96 06/18/18 10:55 - Labs Result Diagrams: 06/20/18 06:50 06/20/18 06:50 Labs: Laboratory Results - last 24 hr 06/19/18 06/19/18 06:15 06:15 WBC 5.6 RBC 2.95 L Hgb 8.8 L Hct 27.4 L MCV 92.9 MCH 29.8 MCHC 32.1 RDW 13.6 Plt Count 224 MPV 8.8 Neut % (Auto) 40.9 L Lymph % (Auto) 49.2 H [place] % (Auto) 8.6 H Eos % (Auto) 1.1 L Baso % (Auto) 0.2 Lymph # (Auto) 2.7 [place] # (Auto) 0.5 Eos # (Auto) 0.1 Baso # (Auto) 0.01 Absolute Neuts (auto) 2.28 Sodium 138 Potassium 4.0 Chloride 105 Carbon Dioxide 25 Anion Gap 12 BUN 24 H Creatinine 0.6 L Est GFR ( Amer) > 60 Est GFR (Non-Af Amer) > 60 Random Glucose 92 Calcium 9.3 Total Bilirubin 0.2 AST 46 ALT 12 Alkaline Phosphatase 112 Total Protein 7.3 Albumin 3.7 Globulin 3.6 Albumin/Globulin Ratio 1.0 L Assessment & Plan - Assessment and Plan (Free Text) Assessment: 88yo M with PMHx of metastatic prostate CA, seizures, recurrent UTIs, dementia, glaucoma. Surgery consulted for scalp/forehead lesion Plan: - May consider biopsy of lesion as outpatient - Follow up with Dr. Borges. Call for appointment - Continue medical management as per medical team Further recs as pre Dr. Jony Page PGY2 surgery
[2018-06-19] MEDS: Bacitracin Ointment 30 GM TUBE TOP SCH (23:53)
--- NOTE | 2018-06-20 01:33 | CON ---
DATE: 06/19/2018 This is [facility] visit on the telemetry floor for Dr. Solomon. CHIEF COMPLAINT: Urinary retention. 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 Nascimento; however, due to possible early dementia, the patient has not followed up with recent admission by the emergency room for abdominal pain with the son reporting that the Bray catheter was changed the day prior with the patient being admitted for evaluation and treatment. At present, the patient is resting more comfortably. However, he reports a lesion on his forehead that bleeds and has not improved despite putting creams on for approximately six months' time with suspicion of basal cell carcinoma of the scalp for which we will ask for a consult with Dr. Borges. The patient had a large amount of blood in his urine for which he is now being treated with antibiotics as per Dr. Richmond, Infection Disease hearing aid consultant. The patient's most recent PSA was 99.1 done on 04/2018. PAST MEDICAL HISTORY: Significant for metastatic prostate CA castrate-resistant, dementia, seizure disorder, glaucoma, chronic UTI, history of indwelling Bray, history of palliative radiation on Lupron. ALLERGIES: NO KNOWN ALLERGIES. MEDICATIONS: Include Duragesic patch, Lopid, Lovenox, Percocet, Protonix, Tegretol, vancomycin, and Zosyn. FAMILY HISTORY/SOCIAL HISTORY: Denies alcohol or tobacco abuse. Lives at home with 24-hour home attendant. Essentially, wheelchair bound with dementia. REVIEW OF SYSTEMS: A 12-point review of system is done which is negative to questioning except for items mentioned in history of present illness. OBJECTIVE/PHYSICAL EXAMINATION: VITAL SIGNS: Temperature 98, pulse 92, respirations 20, blood pressure 124/56 with a pulse ox of 96%. HEENT: Unremarkable. Tongue is dry. NECK: Supple. HEART: Regular rate, occasional ectopic beat. LUNGS: Minimal decreased breath sounds at the bases. ABDOMEN: Soft and nontender. EXTREMITIES: Faint +1 edema of the feet. NEUROLOGIC: Awake and alert, but confused. SKIN: Warm and dry. LABORATORY DATA: The patient's labs were done. White blood cell count of 5.6, hemoglobin 8.8 dropping from 9.6 on admission three days prior, hematocrit 27.4 and platelet count of 224,000. Metabolic panel showing a BUN of 24, creatinine of 0.6, otherwise normal metabolic panel. Iron percent saturation of 15%. Urine showed large amount of blood, large amount of bilirubin, and positive nitrite. The patient's urine culture showed positive findings of Proteus mirabilis. The patient also had a CT scan of the abdomen and pelvis done yesterday. It was read as new retroperitoneal and pelvic lymphadenopathy, new soft tissue mass right posterior perirenal fat likely hematogenous metastases, wide spread sclerotic osseous metastasis unchanged, enlarged prostate, possibly bloody content within the urinary bladder lumen correlating with urinalysis. 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 PLAN: For this patient after conversation with Dr. Solomon is to continue present medical regimen. He also has a new lesion, possible basal cell of his scalp. We will ask for surgical consult in that regard. We will give bacitracin in the interim. We will also type and cross for 2 units of packed red blood cells in the morning and hold. Monitor for his anemic indices with transfusion as indicated for his significant hematuria. We will also consider Zytiga or other medication for palliation of his underlying disease process of prostate cancer with continued recommendations as per patient's status. He remains DNR/DNI at attending doctor's recommendations. This is a complex patient with a comprehensive medical necessary and appropriate visit carried in excess of 90 minutes with the patient's chart reviewed for consultation with patient's nurses, with notes reviewed from prior hospitalizations and evaluations by consultants. Nurse's questions were answered to their satisfaction. Fred Foley MD
[2018-06-20 05:34] VITALS: O2SAT 94
[2018-06-20] MEDS: Meropenem IV 1 gm in NS 1 GM/50 ML BAG IVPB SCH ×3 (06:18→16:25)
[2018-06-20] MEDS: Pantoprazole 40 mg EC Tab PO SCH (06:18)
[2018-06-20 07:13] LABS: BASO # 0.01 K/mm3 (0.0-2.0); BASO % 0.2 % (0.0-3.0); EOS % 0.7 % (1.5-5.0); LYMPH # 2.7 (1.2-3.4); LYMPH % 45.7 % (22.0-35.0); MEAN CELL VOLUME 92.2 fl (80.0-105.0); MEAN CORPUSCULAR HEMOGLOBIN 30.4 pg (25.0-35.0); MEAN PLATELET VOLUME 8.2 fl (7.0-11.0); MONO # 0.4 (0.1-0.6); MONO % 7.3 % (1.0-6.0); RBC 2.96 10^6/uL (3.5-6.1); RED CELL DISTRIBUTION WIDTH 13.3 % (11.5-14.5); WHITE BLOOD COUNT 5.9 10^3/uL (4.5-11.0)
[2018-06-20 07:33] LABS: ALBUMIN 3.7 g/dL (3.0-4.8); ALT/SGPT 12 U/L (7-56); AST/SGOT 42 U/L (17-59); BLOOD UREA NITROGEN 22 mg/dL (7-21); CALCIUM 9.4 mg/dL (8.4-10.5); GFR NON-AFRICAN AMERICAN > 60
[2018-06-20] MEDS: Enoxaparin 40 mg Syringe SC SCH (10:47)
[2018-06-20] MEDS ORDERED: Bacitracin 500 Units/gm Oint Foilpak UD ONE ×2 (10:47→17:45)
[2018-06-20] MEDS: Bacitracin Ointment 30 GM TUBE TOP SCH ×2 (10:47→17:48)
--- NOTE | 2018-06-20 13:39 | CP.PCM.DIS ---
<Rivas Armendariz - Last Filed: 06/20/18 13:35> Provider - Provider Date of Admission: 06/16/18 15:40 Attending physician: Kenny Bae MD Consults: 06/16/18 15:39 Consult [Physician Consult] Stat Comment: Consulting Provider: Henry Nascimento Consulting Physician: Henry Nascimento Reason for Consult: urinary retention 06/17/18 03:03 Social Work Referral Routine Comment: Noe score 15 Physician Instructions: Reason For Exam: Protocol 06/17/18 03:23 Case Management Referral Routine Comment: Physician Instructions: Reason For Exam: Protocol Reason for Referral: Discharge Planning Nursing Referral for Wound Care Routine Comment: Physician Instructions: Reason For Exam: Protocol 06/17/18 03:26 Nursing Referral for Palliative Care Routine Comment: Palliative score 8 Physician Instructions: Reason For Exam: Protocol 06/17/18 07:40 Infectious Disease Consult Routine Comment: Consulting Provider: Evangelist García Consulting Physician: Evangelist García Reason for Consult: UTI 06/18/18 16:21 Physician Consult Routine Comment: Consulting Provider: Christina Solomon Consulting Physician: Christina Solomon Reason for Consult: Mets prostate ca 06/19/18 21:23 Consult [Physician Consult] Routine Comment: Consulting Provider: Carlos Borges Consulting Physician: Carlos Borges Reason for Consult: L scalp lesion/ basalioma? Time Spent in preparation of Discharge (in minutes): 45 Hospital Course - Lab Results Lab Results: Micro Results 06/17/18 01:26 Urine,Clean Catch Urine Culture - Final Proteus Mirabilis Most Recent Lab Values WBC 5.9 10^3/uL (4.5-11.0) 06/20/18 06:50 RBC 2.96 10^6/uL (3.5-6.1) L 06/20/18 06:50 Hgb 9.0 g/dL (14.0-18.0) L 06/20/18 06:50 Hct 27.3 % (42.0-52.0) L 06/20/18 06:50 MCV 92.2 fl (80.0-105.0) 06/20/18 06:50 MCH 30.4 pg (25.0-35.0) 06/20/18 06:50 MCHC 33.0 g/dl (31.0-37.0) 06/20/18 06:50 RDW 13.3 % (11.5-14.5) 06/20/18 06:50 Plt Count 206 10^3/uL (120.0-450.0) 06/20/18 06:50 MPV 8.2 fl (7.0-11.0) 06/20/18 06:50 Neut % (Auto) 46.1 % (50.0-68.0) L 06/20/18 06:50 Lymph % (Auto) 45.7 % (22.0-35.0) H 06/20/18 06:50 [place] % (Auto) 7.3 % (1.0-6.0) H 06/20/18 06:50 Eos % (Auto) 0.7 % (1.5-5.0) L 06/20/18 06:50 Baso % (Auto) 0.2 % (0.0-3.0) 06/20/18 06:50 Lymph # (Auto) 2.7 (1.2-3.4) 06/20/18 06:50 [place] # (Auto) 0.4 (0.1-0.6) 06/20/18 06:50 Eos # (Auto) 0.0 (0.0-0.7) 06/20/18 06:50 Baso # (Auto) 0.01 K/mm3 (0.0-2.0) 06/20/18 06:50 Absolute Neuts (auto) 2.72 (1.4-6.5) 06/20/18 06:50 Sodium 139 mmol/L (132-148) 06/20/18 06:50 Potassium 4.1 mmol/L (3.6-5.0) 06/20/18 06:50 Chloride 104 mmol/L (98-107) 06/20/18 06:50 Carbon Dioxide 25 mmol/L (21-33) 06/20/18 06:50 Anion Gap 14 (10-20) 06/20/18 06:50 BUN 22 mg/dL (7-21) H 06/20/18 06:50 Creatinine 0.6 mg/dl (0.8-1.5) L 06/20/18 06:50 Est GFR ( Amer) > 60 06/20/18 06:50 Est GFR (Non-Af Amer) > 60 06/20/18 06:50 Random Glucose 94 mg/dL (70-110) 06/20/18 06:50 Serum Osmolality 281 mosm/kg (272-300) 06/17/18 10:10 Calcium 9.4 mg/dL (8.4-10.5) 06/20/18 06:50 Iron 32 ug/dL (45-180) L 06/16/18 16:03 TIBC 215 ug/dL (261-462) L 06/16/18 16:03 % Saturation 15 % (20-55) L 06/16/18 16:03 Ferritin 267.0 ng/mL 06/16/18 17:00 Total Bilirubin 0.2 mg/dL (0.2-1.3) 06/20/18 06:50 AST 42 U/L (17-59) 06/20/18 06:50 ALT 12 U/L (7-56) 06/20/18 06:50 Alkaline Phosphatase 126 U/L (38-126) 06/20/18 06:50 Total Protein 7.3 g/dL (5.8-8.3) 06/20/18 06:50 Albumin 3.7 g/dL (3.0-4.8) 06/20/18 06:50 Globulin 3.6 gm/dL 06/20/18 06:50 Albumin/Globulin Ratio 1.0 (1.1-1.8) L 06/20/18 06:50 Urine Color Brown (YELLOW) 06/16/18 10:20 Urine Appearance Turbid (CLEAR) 06/16/18 10:20 Urine pH 7.0 (4.7-8.0) 06/16/18 10:20 Ur Specific [place] 1.015 (1.005-1.035) 06/16/18 10:20 Urine Protein >=300 mg/dL (<30 mg/dL) H 06/16/18 10:20 Urine Glucose (UA) 500 mg/dL (NEGATIVE) H 06/16/18 10:20 Urine Ketones 15 mg/dL (NEGATIVE) H 06/16/18 10:20 Urine Blood Large (NEGATIVE) H 06/16/18 10:20 Urine Nitrate Positive (NEGATIVE) H 06/16/18 10:20 Urine Bilirubin Large (NEGATIVE) H 06/16/18 10:20 Urine Urobilinogen 4.0 E.U./dL (<1 E.U./dL) H 06/16/18 10:20 Ur Leukocyte Esterase Large Jus/uL (NEGATIVE) H 06/16/18 10:20 Urine RBC Tntc /hpf (0-2) H 06/16/18 10:20 Urine WBC Tntc /hpf (0-6) H 06/16/18 10:20 Urine Bacteria Large /hpf (NONE) 06/16/18 10:20 Blood Type A POSITIVE 06/20/18 06:50 Blood Type Confirm A POSITIVE 06/20/18 07:40 Antibody Screen Negative 06/20/18 06:50 Crossmatch See Detail 06/20/18 06:50 BBK History Checked No verified bt 06/20/18 06:50 - Hospital Course Hospital Course: 88yo male PMHx metastatic prostate cancer s/p ADT and palliative radiation on Lupron, seizures, glaucoma, dementia, UTI w/ indwelling holland (+ for E.coli, Klebsiella, and Enterococcus in the past) presents to the ED with lower abdominal pain and urinary retention. In the ED basic lab work was performed. Patient was found to have a UTI. Patient was admitted to telemetry for further treatment. Patient was initially started on broad-spectrum antibiotics as per infectious disease with vancomycin and Zosyn. Urine culture was sent out and showed Proteus. Patient was then continued on Zosyn. Heme oncology and urology were consulted. Urology recommended flushing of the Holland bag every few hours. Oncology recommended possible outpatient treatment with Zytiga for palliation. I spoke to the son which understands stated that he would follow-up as an outpa tient with heme oncology. Surgery was consulted for a lesion on the patient's forehead and to rule out basal cell carcinoma however patient was recommended outpatient workup as needed. Patient today states that his abdominal pain and urinary retention now resolved. He denies any complaints at this time. Patient's son states that he has all his medications at home and does not require any refills. Patient on discharge will be started on ciprofloxacin for 3 days. Patient will also benefit from urinary catheter irrigation with normal saline at home 2-3 times a week to prevent clots. Discharge Exam - Head Exam Head Exam: ATRAUMATIC, NORMAL INSPECTION, NORMOCEPHALIC - Eye Exam Eye Exam: EOMI, PERRL - Respiratory Exam Respiratory Exam: Clear to PA & Lateral. absent: Rales, Rhonchi, Wheezes - Cardiovascular Exam Cardiovascular Exam: REGULAR RHYTHM, RRR, +S1, +S2 - GI/Abdominal Exam GI & Abdominal Exam: Normal Bowel Sounds, Soft. absent: Distended, Tenderness - Neurological Exam Neurological exam: Alert, CN II-XII Intact, Oriented x3 - Psychiatric Exam Psychiatric exam: Normal Mood - Skin Skin Exam: Dry, Warm Discharge Plan - Discharge Medications Prescriptions: RX: Ciprofloxacin [Cipro] 500 mg PO DAILY 3 Days #3 tab - Follow Up Plan Condition: IMPROVED Disposition: HOME/ ROUTINE Patient education suggested?: Yes Instructions: Urinary Retention, Urinary Tract Infection in Men (DC), Dysuria (GEN) Additional Instructions: Follow-up with your PMD within 3 days Follow-up with hematology and oncology and urology for further treatment for palliation Follow-up with surgery or Dermatology regarding lesion on the forehead If you have symptoms recur come back to the ED Take your medications as prescribed, ciprofloxacin was called in to your pharmacy <Kenny Bae - Last Filed: 06/20/18 16:47> Provider - Provider Date of Admission: 06/16/18 15:40 Attending physician: Kenny Bae MD Consults: 06/16/18 15:39 Consult [Physician Consult] Stat Comment: Consulting Provider: Henry Nascimento Consulting Physician: Henry Nascimento Reason for Consult: urinary retention 06/17/18 03:03 Social Work Referral Routine Comment: Noe score 15 Physician Instructions: Reason For Exam: Protocol 06/17/18 03:23 Case Management Referral Routine Comment: Physician Instructions: Reason For Exam: Protocol Reason for Referral: Discharge Planning Nursing Referral for Wound Care Routine Comment: Physician Instructions: Reason For Exam: Protocol 06/17/18 03:26 Nursing Referral for Palliative Care Routine Comment: Palliative score 8 Physician Instructions: Reason For Exam: Protocol 06/17/18 07:40 Infectious Disease Consult Routine Comment: Consulting Provider: Evangelist García Consulting Physician: Evangelist García Reason for Consult: UTI 06/18/18 16:21 Physician Consult Routine Comment: Consulting Provider: Christina Solomon Consulting Physician: Christina Solomon Reason for Consult: Mets prostate ca 06/19/18 21:23 Consult [Physician Consult] Routine Comment: Consulting Provider: Carlos Borges Consulting Physician: Carlos Borges Reason for Consult: L scalp lesion/ basalioma? Hospital Course - Lab Results Lab Results: Micro Results 06/19/18 16:25 Stool C. difficile Antigen & Toxins A,B - Final 06/17/18 01:26 Urine,Clean Catch Urine Culture - Final Proteus Mirabilis Most Recent Lab Values WBC 5.9 10^3/uL (4.5-11.0) 06/20/18 06:50 RBC 2.96 10^6/uL (3.5-6.1) L 06/20/18 06:50 Hgb 9.0 g/dL (14.0-18.0) L 06/20/18 06:50 Hct 27.3 % (42.0-52.0) L 06/20/18 06:50 MCV 92.2 fl (80.0-105.0) 06/20/18 06:50 MCH 30.4 pg (25.0-35.0) 06/20/18 06:50 MCHC 33.0 g/dl (31.0-37.0) 06/20/18 06:50 RDW 13.3 % (11.5-14.5) 06/20/18 06:50 Plt Count 206 10^3/uL (120.0-450.0) 06/20/18 06:50 MPV 8.2 fl (7.0-11.0) 06/20/18 06:50 Neut % (Auto) 46.1 % (50.0-68.0) L 06/20/18 06:50 Lymph % (Auto) 45.7 % (22.0-35.0) H 06/20/18 06:50 [place] % (Auto) 7.3 % (1.0-6.0) H 06/20/18 06:50 Eos % (Auto) 0.7 % (1.5-5.0) L 06/20/18 06:50 Baso % (Auto) 0.2 % (0.0-3.0) 06/20/18 06:50 Lymph # (Auto) 2.7 (1.2-3.4) 06/20/18 06:50 [place] # (Auto) 0.4 (0.1-0.6) 06/20/18 06:50 Eos # (Auto) 0.0 (0.0-0.7) 06/20/18 06:50 Baso # (Auto) 0.01 K/mm3 (0.0-2.0) 06/20/18 06:50 Absolute Neuts (auto) 2.72 (1.4-6.5) 06/20/18 06:50 Sodium 139 mmol/L (132-148) 06/20/18 06:50 Potassium 4.1 mmol/L (3.6-5.0) 06/20/18 06:50 Chloride 104 mmol/L (98-107) 06/20/18 06:50 Carbon Dioxide 25 mmol/L (21-33) 06/20/18 06:50 Anion Gap 14 (10-20) 06/20/18 06:50 BUN 22 mg/dL (7-21) H 06/20/18 06:50 Creatinine 0.6 mg/dl (0.8-1.5) L 06/20/18 06:50 Est GFR ( Amer) > 60 06/20/18 06:50 Est GFR (Non-Af Amer) > 60 06/20/18 06:50 Random Glucose 94 mg/dL (70-110) 06/20/18 06:50 Serum Osmolality 281 mosm/kg (272-300) 06/17/18 10:10 Calcium 9.4 mg/dL (8.4-10.5) 06/20/18 06:50 Iron 32 ug/dL (45-180) L 06/16/18 16:03 TIBC 215 ug/dL (261-462) L 06/16/18 16:03 % Saturation 15 % (20-55) L 06/16/18 16:03 Ferritin 267.0 ng/mL 06/16/18 17:00 Total Bilirubin 0.2 mg/dL (0.2-1.3) 06/20/18 06:50 AST 42 U/L (17-59) 06/20/18 06:50 ALT 12 U/L (7-56) 06/20/18 06:50 Alkaline Phosphatase 126 U/L (38-126) 06/20/18 06:50 Total Protein 7.3 g/dL (5.8-8.3) 06/20/18 06:50 Albumin 3.7 g/dL (3.0-4.8) 06/20/18 06:50 Globulin 3.6 gm/dL 06/20/18 06:50 Albumin/Globulin Ratio 1.0 (1.1-1.8) L 06/20/18 06:50 Urine Color Brown (YELLOW) 06/16/18 10:20 Urine Appearance Turbid (CLEAR) 06/16/18 10:20 Urine pH 7.0 (4.7-8.0) 06/16/18 10:20 Ur Specific [place] 1.015 (1.005-1.035) 06/16/18 10:20 Urine Protein >=300 mg/dL (<30 mg/dL) H 06/16/18 10:20 Urine Glucose (UA) 500 mg/dL (NEGATIVE) H 06/16/18 10:20 Urine Ketones 15 mg/dL (NEGATIVE) H 06/16/18 10:20 Urine Blood Large (NEGATIVE) H 06/16/18 10:20 Urine Nitrate Positive (NEGATIVE) H 06/16/18 10:20 Urine Bilirubin Large (NEGATIVE) H 06/16/18 10:20 Urine Urobilinogen 4.0 E.U./dL (<1 E.U./dL) H 06/16/18 10:20 Ur Leukocyte Esterase Large Jus/uL (NEGATIVE) H 06/16/18 10:20 Urine RBC Tntc /hpf (0-2) H 06/16/18 10:20 Urine WBC Tntc /hpf (0-6) H 06/16/18 10:20 Urine Bacteria Large /hpf (NONE) 06/16/18 10:20 Blood Type A POSITIVE 06/20/18 06:50 Blood Type Confirm A POSITIVE 06/20/18 07:40 Antibody Screen Negative 06/20/18 06:50 Crossmatch See Detail 06/20/18 06:50 BBK History Checked No verified bt 06/20/18 06:50 - Hospital Course Hospital Course: Pt seen and examined by me. I have reviewed the note of the medical records receptionist and I agree with it. I have discussed the assessment and plan with the resident. I have reviewed the medications and the last labs. Pt with UTI that has been treated. The pt will be discharged home with Cipro for 3 more days. He has metastatic prostate cancer and will contiue to decline. I spoke to the pt's son later in the morning to give an update. Pt was seen by oncology and no new plan has been made. He will have episodes of UTI and hematuria and I informed the son about this. His pain is controlled. Eating ok. He is alert and awake. He is baseline mental status. His Delirium has improved.
[2018-06-20 14:13] VITALS: RESP 18
--- NOTE | 2018-06-20 14:29 | CP.PCM.PN ---
Subjective - Date & Time of Evaluation Date of Evaluation: 06/20/18 Time of Evaluation: 11:30 - Subjective Subjective: No abdominal pain, no nausea, no fevers. Objective - Vital Signs/Intake and Output Vital Signs (last 24 hours): Temp Pulse Resp BP Pulse Ox 98.5 F 91 H 20 135/54 L 96 06/19/18 12:00 06/19/18 12:00 06/19/18 12:00 06/19/18 12:00 06/18/18 10:55 Intake and Output: 06/19/18 06/19/18 06:59 18:59 Intake Total 770 Output Total 1200 Balance -430 - Medications Medications: Current Medications Carbamazepine (Tegretol) 200 mg PO TID [facility]; Protocol Last Admin: 06/19/18 14:31 Dose: 200 mg Enoxaparin Sodium (Lovenox) 40 mg SC DAILY [facility]; Protocol Last Admin: 06/19/18 10:35 Dose: 40 mg Fentanyl (Duragesic) 1 patch TD Q72 [facility] Last Admin: 06/19/18 10:38 Dose: 1 patch Gemfibrozil (Lopid) 600 mg PO BID [facility] Last Admin: 06/19/18 10:35 Dose: 600 mg Meropenem (Merrem Iv 1 Gm Premix) 1 gm in 50 mls @ 100 mls/hr IVPB Q8 [facility]; Protocol Last Admin: 06/19/18 14:31 Dose: 100 mls/hr Pantoprazole Sodium (Protonix Ec Tab) 40 mg PO 0600 [facility] Last Admin: 06/19/18 05:38 Dose: 40 mg - Labs Labs: 06/19/18 06:15 06/19/18 06:15 - Constitutional Appears: Chronically Ill - Head Exam Head Exam: NORMAL INSPECTION - Respiratory Exam Respiratory Exam: Decreased Breath Sounds - Cardiovascular Exam Cardiovascular Exam: +S1, +S2 - GI/Abdominal Exam GI & Abdominal Exam: Soft. absent: Tenderness Assessment and Plan - Assessment and Plan (Free Text) Plan: Assessment consider complicated UTI with hematuria in this patient with indwelling Bray catheter and prostate cancer, growing Proteus history of sepsis due to complicated UTI in this patient with indwelling Bray catheter and metastatic prostate cancer, grew Proteus and E. faecalis in the urine, clinically improved history of Proteus bacteremia, source unclear, concerned about intra-abdominal infection history of UTI in this patient with prostate cancer with metastasis history of Klebsiella urinary tract infection Mechanical fall, etiology to be determined prostate cancer on Lupron treatment once a month (hormonal treatment) seizure disorder glaucoma Plan continue Merrem (day 4 of antibiotics) and will continue to monitor clinically - target 7-10 days of antibiotics follow up Urology evaluation and recommendations reviewed CT A/P which is showing metastases and lymphadenopathy
[2018-06-20] MEDS ORDERED: Influenza Vaccine 60 mcg/0.5 mL SYR (4YR UP) IM ONE (17:31)
[2018-06-20 18:26] VITALS: BP 134/64; PULSE 92; TEMP 98.8
--- NOTE | 2018-06-20 20:53 | PN ---
DATE: 06/20/2018 This is [facility] visit on the telemetry floor. For Dr. Solomon. SUBJECTIVE: The patient is an 88-year-old male, seen with his son at the bedside for discharge today as per his primary doctor after the patient was hospitalized for severe urinary retention, but the patient noted to have metastatic castration-resistant prostatic cancer, bony metastasis. The patient did have a Bray change. He is resting more comfortably. The patient's hemoglobin now reported at 9 with a value of 8.8 yesterday with consideration for transfusions should hemoglobin drop any further. The patient did have an evaluation for his scalp lesions with Dr. Borges's resident which was recommended for followup as an outpatient as it is suspicious for basal cell carcinoma. OBJECTIVE: VITAL SIGNS: Temperature 98.2, pulse 96, respirations 18, blood pressure 131/57, pulse ox 94%. PHYSICAL EXAMINATION: HEENT: Unremarkable. NECK: Supple. HEART: Regular rate. Occasional ectopic beats. LUNGS: Decreased breath sounds at the bases. ABDOMEN: Soft, nontender. EXTREMITIES: Faint +1 edema. NEUROLOGIC: Awake and alert. SKIN: Warm and dry with suspicious basal cell type lesion of his left forehead. LABORATORY DATA: The patient's labs were done. White blood cell count of 5.9, hemoglobin of 9, hematocrit 27.3, platelet count of 206,000 with a metabolic panel showing a BUN of 22 and creatinine 0.6. The patient did have Proteus mirabilis positive UTI findings reported yesterday with this addressed by Dr. Richmond with meropenem being given with oral antibiotics as per his primary doctor as indicated, and the patient may be discharged later today. 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 PLAN: For this patient, after conversation with Dr. Solomon and the patient and his son, he is to continue his present medical regimen with antibiotics as far as his UTI. We will follow up in the office for further recommendations considering treatment with Zytiga for palliation as indicated. This is a complex patient with comprehensive medically necessary and appropriate visit carried out in excess of 40 minutes with the patient's son's questions answered to his satisfaction. Fred Foley MD
== END 2018-06-20 20:47 | disposition home or self-care (01) | DRG 699 ==
LOC: ED 09:09 → ERH 15:40 → 2RSO 06-17 02:40
PROVIDERS: ADMIT Internal Medicine Nephrology; ATTEND Internal Medicine Nephrology
DX: T83.518A Infection and inflammatory reaction due to other urinary catheter, initial encounter (principal); N39.0 Urinary tract infection, site not specified; C79.51 Secondary malignant neoplasm of bone; E87.1 Hypo-osmolality and hyponatremia; G40.909 Epilepsy, unspecified, not intractable, without status epilepticus; F03.90 Unspecified dementia, unspecified severity, without behavioral disturbance, psychotic disturbance, mood disturbance, and anxiety; D86.9 Sarcoidosis, unspecified; D64.9 Anemia, unspecified; C61 Malignant neoplasm of prostate; R31.0 Gross hematuria; N40.1 Benign prostatic hyperplasia with lower urinary tract symptoms; R33.8 Other retention of urine; G89.3 Neoplasm related pain (acute) (chronic); Z66 Do not resuscitate; E78.5 Hyperlipidemia, unspecified; B96.4 Proteus (mirabilis) (morganii) as the cause of diseases classified elsewhere; H40.9 Unspecified glaucoma; I25.2 Old myocardial infarction; Y84.6 Urinary catheterization as the cause of abnormal reaction of the patient, or of later complication, without mention of misadventure at the time of the procedure; Z99.3 Dependence on wheelchair; Z79.818 Long term (current) use of other agents affecting estrogen receptors and estrogen levels; Z87.891 Personal history of nicotine dependence; Z23 Encounter for immunization

== ENCOUNTER 2018-07-07 09:53 | Observation (INO) | payer MEDICARE ==
[2018-07-07 11:30] LABS: EOS # 0.1 (0.0-0.7); EOS % 0.8 % (1.5-5.0); HEMOGLOBIN 8.6 g/dL (14.0-18.0); LYMPH # 1.9 (1.2-3.4); LYMPH % 30.4 % (22.0-35.0); MEAN CELL VOLUME 91.9 fl (80.0-105.0); MEAN CORPUSCULAR HEMOGLOBIN 30.4 pg (25.0-35.0); MEAN CORPUSCULAR HGB CONC 33.1 g/dl (31.0-37.0); MEAN PLATELET VOLUME 8.9 fl (7.0-11.0); MONO # 0.5 (0.1-0.6); MONO % 7.7 % (1.0-6.0); RBC 2.83 10^6/uL (3.5-6.1); RED CELL DISTRIBUTION WIDTH 13.7 % (11.5-14.5); WHITE BLOOD COUNT 6.2 10^3/uL (4.5-11.0)
[2018-07-07 11:36] LABS: URINE BILIRUBIN NEGATIVE (NEGATIVE); URINE BLOOD LARGE (NEGATIVE); URINE GLUCOSE (UA) NEGATIVE (NEGATIVE); URINE LEUKOCYTE ESTERASE MODERATE Leu/uL (NEGATIVE); URINE PROTEIN 100 mg/dL (<30 mg/dL); URINE UROBILINOGEN 0.2 E.U./dL (<1 E.U./dL)
--- NOTE | 2018-07-07 11:40 | ED PDOC ---
Arrival/HPI - General Chief Complaint: Male Genitourinary Time Seen by Provider: 07/07/18 10:17 Historian: Patient - History of Present Illness Narrative History of Present Illness (Text): 07/07/18 11:24 88-year-old male with a history of prostate cancer with chronic Holland cathetermode developed abdominal pain this morning and no urine output. At the house the catheter was changed by the home nurse and was still not draining u rine so the patient was sent to the emergency room for evaluation. Patient is still complaining of some lower abdominal pain. No nausea or vomiting. No fevers or chills. Patient states he's noticed there is urine currently in the bag. Past Medical History - Provider Review Nursing Documentation Reviewed: Yes - Travel History Have you recently traveled outside [place] w/in the past 3 mons?: No - Infectious Disease Hx of Infectious Diseases: None - Cardiac Hx Pacemaker: No - Pulmonary Hx Respiratory Disorders: Yes (H/O SMOKING CIGARETTES) Other/Comment: EMPYEMA/SARCOIDOSIS - Neurological Hx Dizziness: Yes (syncope) Hx Seizures: Yes (last seizure 20 yrs ago) - HEENT Hx Cataracts: Yes (with bilateral sx) - Renal Hx Renal Disorder: Yes Other/Comment: chronic holland-Prostate ca. - Endocrine/Metabolic Hx Endocrine Disorders: No - Hematological/Oncological Hx Cancer: Yes (prostate) - Integumentary Hx Dermatological Disorder: Yes - Musculoskeletal/Rheumatological Hx Arthritis: Yes - Gastrointestinal Hx Gastrointestinal Disorders: No - Genitourinary/Gynecological Hx Genitourinary Disorders: Yes (UTI,CHRONIC HOLLAND CATHETER) - Psychiatric Hx Psychophysiologic Disorder: Yes Hx Substance Use: No - Surgical History Hx Mastectomy: No - Anesthesia Hx Anesthesia: No Hx Anesthesia Reactions: No Family/Social History - Physician Review Nursing Documentation Reviewed: Yes Family/Social History: Unknown Family HX Smoking Status: Unknown If Ever Smoked Hx Alcohol Use: Yes (occasional) Hx Substance Use: No Allergies/Home Meds Allergies/Adverse Reactions: Allergies No Known Allergies Allergy (Verified 05/27/18 18:01) Home Medications: Home Meds Medication Instructions Recorded Confirmed Fentanyl [Duragesic Patch] 50 mcg TD Q72 05/22/18 06/20/18 Gemfibrozil [Lopid] 600 mg PO BID 05/22/18 06/20/18 Omeprazole 40 mg PO DAILY 05/22/18 06/16/18 oxyCODONE/Acetaminophen [Percocet 1 tab PO Q4H PRN 06/16/18 06/16/18 5/325 mg Tab] Review of Systems - Review of Systems Constitutional: absent: Fatigue, Fevers Respiratory: absent: SOB, Cough Cardiovascular: absent: Chest Pain, Palpitations Gastrointestinal: Abdominal Pain. absent: Constipation, Diarrhea, Nausea, Vomiting Genitourinary Male: Urinary Output Changes Musculoskeletal: absent: Arthralgias, Back Pain Skin: absent: Rash Neurological: absent: Headache Physical Exam Vital Signs Reviewed: Yes Vital Signs Temp Pulse Resp BP Pulse Ox 07/07/18 10:06 98.5 F 99 H 18 126/83 99 Temperature: Afebrile Blood Pressure: Normal Pulse: Regular Respiratory Rate: Normal Appearance: Positive for: Well-Appearing, Non-Toxic, Comfortable Pain Distress: None Mental Status: Positive for: Alert and Oriented X 3 - Systems Exam Head: Present: Atraumatic Mouth: Present: Moist Mucous Membranes Neck: Present: Normal Range of Motion Respiratory/Chest: Present: Clear to Auscultation, Good Air Exchange. No: Respiratory Distress, Accessory Muscle Use Cardiovascular: Present: Regular Rate and Rhythm, Normal S1, S2. No: Murmurs Abdomen: Present: Tenderness (+ minimal lower abdominal tenderness. ). No: Distention, Peritoneal Signs, Rebound, Guarding Genitourinary Male: Present: Other (holland in place; ). No: Circumcised Penis, Lesions, Masses, Erythema Upper Extremity: Present: Normal Inspection Lower Extremity: Present: Normal Inspection Neurological: Present: GCS=15 Skin: Present: Warm, Dry Psychiatric: Present: Alert, Oriented x 3 Medical Decision Making ED Course and Treatment: 07/07/18 11:54 88-year-old male with chronic Holland catheter with no urinary output. After changing the Holland catheter at home, there ispositive urine output. CBC: wbc; wnl hgb;8.6 CMP BUN; 26 cr; 0.6 UA + blood, + leukocytes, + nitrates CAT scan of the abdomen and pelvis: FINDINGS: LOWER THORAX: There appear to be scattered areas of linear atelectasis and or scarring both lung bases including the lingular and middle lobe regions. Mild passive/dependent type atelectasis both lung bases. No effusion or basilar pneumothorax. Heart size within range of normal. Small pericardial effusion. LIVER: Liver exhibits normal size and attenuation pattern without masses collections or calcifications. GALLBLADDER AND BILE DUCTS: Gallbladder physiologically distended. No evidence of intraluminal gallbladder calculi. PANCREAS: Unremarkable. No mass. No ductal dilatation. SPLEEN: Unremarkable. No splenomegaly. ADRENALS: No adrenal lesions. KIDNEYS AND URETERS: The kidneys demonstrate relatively symmetric size. No evidence of nephrol ithiasis. The mild prominence of the renal pelves. The ureters are also mildly prominent throughout although do taper to some degree distally.. Suspect at least 2 small right renal cyst. BLADDER: Urinary bladder is collapsed about an in situ unclamped Holland catheter.. Muscular hypertrophy presumably contributes. Small amount of air is present within the bladder lumen likely due to instrumentation however possibility of cystitis or other intrinsic/invasive wall lesion not excluded. Clinical correlation with history is recommended. REPRODUCTIVE: Prostate gland appears enlarged encroaching into the floor urinary bladder. APPENDIX: No evidence of acute appendicitis. What is felt to represent the normal appendix best seen on coronal sequence image number [id number]. BOWEL: Evaluation of the bowel is somewhat limited due to the lack of circulating intravenous contrast material. The stomach is incompletely distended with slight wall thickening. Rugal folds are also prominent likely due to incomplete distention. Visualized loops of small bowel exhibit normal contour and caliber. No evidence of acute mechanical small bowel obstruction. Moderate amount of stool seen throughout the colon consistent with fecal retention/constipation.. There also appears to be mild fecal impaction. PERITONEUM: Unremarkable. No fluid collection. No free air. LYMPH NODES: There are multiple small to mildly enlarged retroperitoneal and pelvic adenopathy VASCULATURE: Unremarkable. No aortic aneurysm. Mild aortic atherosclerotic calcification or mural plaque present. BONES: Diffuse blastic metastases are again seen scattered throughout the lower thoracic lumbar spine as well as pelvis and sacrum. OTHER FINDINGS: None. IMPRESSION: In situ Holland catheter unclamped Holland catheter with collapsed urinary bladder. Bladder wall thickening in part due to collapse as well as muscular hypertrophy however other intrinsic/invasive wall lesion not excluded. Air is present within the urinary bladder likely due to recent instrumentation however correlation urinalysis to exclude cystitis. Enlarged prostate gland encroaching into the floor urinary bladder. Mildly prominent bilateral renal pelves and ureters appear. Multiple small to mildly enlarged retroperitoneal and pelvic sidewall adenopathy. Diffuse blastic skeletal metastases as above. Small pericardial effusion There also appears to be mild fecal impaction. blood cultures pending type and screen ordered pt started on rocephin IV. case discussed with dr. ricci will admit observational status to med/surg for UTI, hematuria, urinary retention, anemia all results discussed with family member and patient. all aspects of this case were discussed the attending of record. impression; uti, hematuria, urinary retension, anemia admit obs/ med/surg - RAD Interpretation Radiology Orders: 07/07/18 10:38 ABD & PELVIS W/O PO OR IV CONT [CT] Stat Disposition/Present on Arrival - Present on Arrival Any Indicators Present on Arrival: Yes History of DVT/PE: No History of Uncontrolled Diabetes: No Urinary Catheter: Yes (Chronic for retention) History of Decub. Ulcer: No History Surgical Site Infection Following: None - Disposition Have Diagnosis and Disposition been Completed?: Yes Diagnosis: Urinary tract infection, Urinary retention, Anemia, Hematuria Disposition: HOSPITALIZED Disposition Time: 13:18 Patient Plan: Observation Condition: FAIR
[2018-07-07 11:42] LABS: ALBUMIN 3.9 g/dL (3.0-4.8); ALT/SGPT 10 U/L (7-56); AST/SGOT 37 U/L (17-59); BLOOD UREA NITROGEN 24 mg/dL (7-21); CALCIUM 9.3 mg/dL (8.4-10.5); GFR NON-AFRICAN AMERICAN > 60
[2018-07-07 12:08] LABS: URINE APPEARANCE SLIGHT-CLOUDY (CLEAR); URINE COLOR LIGHT BROWN (YELLOW)
[2018-07-07 12:13] LABS: URINE BACTERIA MANY /hpf; URINE RBC TNTC /hpf (0-2); URINE WBC TNTC /hpf (0-6)
--- NOTE | 2018-07-07 12:46 | CT ---
Date of service: 07/07/2018 PROCEDURE: CT abdomen pelvis. HISTORY: Abdominal pain. No output from Bray catheter now changed COMPARISON: Comparison made with prior CT scan abdomen pelvis 01/27/2018. TECHNIQUE: Contiguous axial images of the abdomen and pelvis performed without oral or intravenous contrast material. Additional 2D sagittal and coronal reformats generated. Radiation dose: Total exam DLP = 949.3 mGy-cm. This CT exam was performed using one or more of the following dose reduction techniques: Automated exposure control, adjustment of the mA and/or kV according to patient size, and/or use of iterative reconstruction technique. FINDINGS: LOWER THORAX: There appear to be scattered areas of linear atelectasis and or scarring both lung bases including the lingular and middle lobe regions. Mild passive/dependent type atelectasis both lung bases. No effusion or basilar pneumothorax. Heart size within range of normal. Small pericardial effusion. LIVER: Liver exhibits normal size and attenuation pattern without masses collections or calcifications. GALLBLADDER AND BILE DUCTS: Gallbladder physiologically distended. No evidence of intraluminal gallbladder calculi. PANCREAS: Unremarkable. No mass. No ductal dilatation. SPLEEN: Unremarkable. No splenomegaly. ADRENALS: No adrenal lesions. KIDNEYS AND URETERS: The kidneys demonstrate relatively symmetric size. No evidence of nephrolithiasis. The mild prominence of the renal pelves. The ureters are also mildly prominent throughout although do taper to some degree distally.. Suspect at least 2 small right renal cyst. BLADDER: Urinary bladder is collapsed about an in situ unclamped Bray catheter.. Muscular hypertrophy presumably contributes. Small amount of air is present within the bladder lumen likely due to instrumentation however possibility of cystitis or other intrinsic/invasive wall lesion not excluded. Clinical correlation with history is recommended. REPRODUCTIVE: Prostate gland appears enlarged encroaching into the floor urinary bladder. APPENDIX: No evidence of acute appendicitis. What is felt to represent the normal appendix best seen on coronal sequence image number [id number]. BOWEL: Evaluation of the bowel is somewhat limited due to the lack of circulating intravenous contrast material. The stomach is incompletely distended with slight wall thickening. Rugal folds are also prominent likely due to incomplete distention. Visualized loops of small bowel exhibit normal contour and caliber. No evidence of acute mechanical small bowel obstruction. Moderate amount of stool seen throughout the colon consistent with fecal retention/constipation.. There also appears to be mild fecal impaction. PERITONEUM: Unremarkable. No fluid collection. No free air. LYMPH NODES: There are multiple small to mildly enlarged retroperitoneal and pelvic adenopathy VASCULATURE: Unremarkable. No aortic aneurysm. Mild aortic atherosclerotic calcification or mural plaque present. BONES: Diffuse blastic metastases are again seen scattered throughout the lower thoracic lumbar spine as well as pelvis and sacrum. OTHER FINDINGS: None. IMPRESSION: In situ Bray catheter unclamped Bray catheter with collapsed urinary bladder. Bladder wall thickening in part due to collapse as well as muscular hypertrophy however other intrinsic/invasive wall lesion not excluded. Air is present within the urinary bladder likely due to recent instrumentation however correlation urinalysis to exclude cystitis. Enlarged prostate gland encroaching into the floor urinary bladder. Mildly prominent bilateral renal pelves and ureters appear. Multiple small to mildly enlarged retroperitoneal and pelvic sidewall adenopathy. Diffuse blastic skeletal metastases as above. Small pericardial effusion There also appears to be mild fecal impaction.
[2018-07-07] MEDS ORDERED: cefTRIAXone 1 gm 1 GM/100 ML BAG IVPB STA (14:02)
[2018-07-07 14:12] LABS: INR 1.33; PARTIAL THROMBOPLASTIN TIME 37.5 Seconds (26.9-38.3)
[2018-07-07] MEDS ORDERED: POLYETHYLENE GLYCOL 3350 17 GM/Dose PACKET PO ONE (14:31)
[2018-07-07] MEDS ORDERED: Oxycodone/Acetaminophen 5/325 mg Tab PO PRN (14:32)
--- NOTE | 2018-07-07 14:44 | CP.PCM.HP ---
History of Present Illness - History of Present Illness History of Present Illness: PGY-3 IM resident progress note for Dr. Bae's service Patient is an 88 y/o Make with PMHx of metastatic prostate cancer s/p ADT and palliative radiation on Lupron, seizures, glaucoma, dementia, UTI w/ indwelling Holland (+ for E.coli, Klebsiella, and Enterococcus), recently admitted with UTI due to proteus mirabilis and was on merrem, then ciprofloxacin to complete the course, is presenting due to hematuria. As per patient and his son, patient's Holland was clogged, preventing urine from draining. The VNS attempted to unclog the Holland with no success. The VNS then changed the Holland catheter, however there was still no urine output thus patient was brought to the ED. In the ED, the Holland catheter was draining however the urine was hematuric, with hgb 8.6 thus patient is being admitted for observation for monitoring. Patient complained of abdominal pain, which started this morning however states the abdominal pain has improved. Patient denies cp, sob, no nausea, vomiting or diarrhea. Denies fever or chills. PMHx: metastatic prostate cancer s/p ADT and palliative radiation on Lupron, seizures, glaucoma, dementia, UTI w/ indwelling holland (+ for E.coli, Klebsiella, Enterococcus, and proteus mirabilis) PSHx: b/l cataract surgery Allergies: NKA SocHx: Denies EtOH, drug or tobacco use. Patient lives at home and has a 24 hr group home counselor. he is not active and is wheelchair bound. Patient is a DNI/DNR. FamHx: non-contributory Home meds: As per chart Present on Admission - Present on Admission Any Indicators Present on Admission: Yes History of DVT/PE: No History of Uncontrolled Diabetes: No Urinary Catheter: Yes Decubitus Ulcer Present: No Review of Systems - Constitutional Constitutional: absent: Chills, Fatigue, Fever, Frequent Falls, Lethargy, Malaise, Weakness - EENT Eyes: absent: Blurred Vision Ears: absent: Tinnitus, Dizziness Nose/Mouth/Throat: absent: Dysphagia, Throat Swelling - Cardiovascular Cardiovascular: absent: Chest Pain, Chest Pain at Rest, Claudication, Dyspnea, Dyspnea on Exertion, Pedal Edema, Syncope - Respiratory Respiratory: absent: Cough, Dyspnea, Hemoptysis, Dyspnea on Exertion, Wheezing - Gastrointestinal Gastrointestinal: Abdominal Pain (rigfht lower quadrant), Constipation. absent: Cramping, Diarrhea, Dyspepsia, Dysphagia, Heartburn, Melena, Nausea - Genitourinary Genitourinary: Hematuria, Freq UTI, Other (chronic indwelling holland catheter) - Musculoskeletal Musculoskeletal: Muscle Weakness (ida lower extremities.) - Integumentary Integumentary: absent: Wounds - Neurological Neurological: Abnormal Gait, Weakness. absent: Confusion - Psychiatric Psychiatric: absent: Anxiety, Confusion - Endocrine Endocrine: absent: Fatigue, Palpitations, Polydipsia, Polyphagia, Polyuria - Hematologic/Lymphatic Hematologic: Lymphadenopathy. absent: Easy Bleeding, Easy Bruising Past Patient History - Infectious Disease Hx of Infectious Diseases: None - Tetanus Immunizations Tetanus Immunization: Unknown - Past Medical History & Family History Past Medical History?: Yes - Past Social History Smoking Status: Unknown If Ever Smoked Alcohol: None Drugs: Denies Home Situation {Lives}: With Family - CARDIAC Hx Pacemaker: No - PULMONARY Hx Respiratory Disorders: Yes (H/O SMOKING CIGARETTES) Other/Comment: EMPYEMA/SARCOIDOSIS - NEUROLOGICAL Hx Dizziness: Yes (syncope) Hx Seizures: Yes (last seizure 20 yrs ago) - HEENT Hx Cataracts: Yes (with bilateral sx) - RENAL Hx Chronic Kidney Disease: Yes Other/Comment: chronic holland-Prostate ca. - ENDOCRINE/METABOLIC Hx Endocrine Disorders: No - HEMATOLOGICAL/ONCOLOGICAL Hx Cancer: Yes (prostate) - INTEGUMENTARY Hx Dermatological Problems: Yes - MUSCULOSKELETAL/RHEUMATOLOGICAL Hx Arthritis: Yes - GASTROINTESTINAL Hx Gastrointestinal Disorders: No - GENITOURINARY/GYNECOLOGICAL Hx Genitourinary Disorders: Yes (UTI,CHRONIC HOLLAND CATHETER) - PSYCHIATRIC Hx Psychophysiologic Disorder: Yes Hx Substance Use: No - SURGICAL HISTORY Hx Mastectomy: No - ANESTHESIA Hx Anesthesia: No Hx Anesthesia Reactions: No Meds Allergies/Adverse Reactions: Allergies Allergy/AdvReac Type Severity Reaction Status Date / Time No Known Allergies Allergy Verified 05/27/18 18:01 Physical Exam - Constitutional Appears: No Acute Distress, Chronically Ill - Head Exam Head Exam: ATRAUMATIC, NORMAL INSPECTION, NORMOCEPHALIC - Eye Exam Eye Exam: EOMI, Normal appearance, PERRL. absent: Scleral icterus Pupil Exam: NORMAL ACCOMODATION - ENT Exam ENT Exam: Mucous Membranes Moist - Neck Exam Neck exam: Positive for: Normal Inspection. Negative for: Lymphadenopathy, Meningismus - Respiratory Exam Respiratory Exam: Clear to Auscultation Bilateral, NORMAL BREATHING PATTERN. absent: Chest Wall Tenderness, Rales, Rhonchi, Wheezes, Respiratory Distress, Stridor - Cardiovascular Exam Cardiovascular Exam: REGULAR RHYTHM, RRR, +S1, +S2. absent: Bradycardia, Tachycardia, Gallop, Irregular Rhythm, JVD, Rubs, Systolic Murmur - GI/Abdominal Exam GI & Abdominal Exam: Normal Bowel Sounds, Soft, Tenderness (right lower quadrant). absent: Diminished Bowel Sounds, Distended, Firm, Guarding, Hyperactive Bowel Sounds, Hypoactive Bowel Sounds, Rebound, Rigid - Exam Additional comments: + Holland with dark urine. - Extremities Exam Extremities exam: Positive for: normal inspection. Negative for: pedal edema, tenderness - Back Exam Back exam: NORMAL INSPECTION. absent: rash noted, tenderness, vertebral tenderness - Neurological Exam Neurological exam: Alert, Oriented x3 - Psychiatric Exam Psychiatric exam: Normal Affect, Normal Mood - Skin Skin Exam: Dry, Normal Color, Warm Results - Vital Signs Recent Vital Signs: Last Vital Signs Temp 98.5 F 07/07/18 10:06 Pulse 78 07/07/18 13:51 Resp 18 07/07/18 13:51 BP 121/73 07/07/18 13:51 Pulse Ox 99 07/07/18 13:51 - Labs Result Diagrams: 07/07/18 10:20 07/07/18 10:20 Labs: Laboratory Results - last 24 hr 07/07/18 07/07/18 07/07/18 10:20 10:20 11:00 WBC 6.2 RBC 2.83 L Hgb 8.6 L Hct 26.0 L MCV 91.9 MCH 30.4 MCHC 33.1 RDW 13.7 Plt Count 244 MPV 8.9 Neut % (Auto) 61.1 Lymph % (Auto) 30.4 Gilliam % (Auto) 7.7 H Eos % (Auto) 0.8 L Baso % (Auto) 0.0 Lymph # (Auto) 1.9 Gilliam # (Auto) 0.5 Eos # (Auto) 0.1 Baso # (Auto) 0.00 Absolute Neuts (auto) 3.80 PT INR APTT Sodium 134 Potassium 4.4 Chloride 96 L Carbon Dioxide 26 Anion Gap 16 BUN 24 H Creatinine 0.6 L Est GFR ( Amer) > 60 Est GFR (Non-Af Amer) > 60 Random Glucose 102 Calcium 9.3 Total Bilirubin 0.3 AST 37 ALT 10 Alkaline Phosphatase 141 H Total Protein 8.0 Albumin 3.9 Globulin 4.1 Albumin/Globulin Ratio 1.0 L Urine Color Light brown Urine Appearance Slight-cloudy Urine pH 6.0 Ur Specific [place] 1.020 Urine Protein 100 H Urine Glucose (UA) Negative Urine Ketones Negative Urine Blood Large H Urine Nitrate Positive H Urine Bilirubin Negative Urine Urobilinogen 0.2 Ur Leukocyte Esterase Moderate H Urine RBC Tntc H Urine WBC Tntc H Urine Bacteria Many 07/07/18 12:30 WBC RBC Hgb Hct MCV MCH MCHC RDW Plt Count MPV Neut % (Auto) Lymph % (Auto) Gilliam % (Auto) Eos % (Auto) Baso % (Auto) Lymph # (Auto) Gilliam # (Auto) Eos # (Auto) Baso # (Auto) Absolute Neuts (auto) PT 15.0 H INR 1.33 APTT 37.5 Sodium Potassium Chloride Carbon Dioxide Anion Gap BUN Creatinine Est GFR ( Amer) Est GFR (Non-Af Amer) Random Glucose Calcium Total Bilirubin AST ALT Alkaline Phosphatase Total Protein Albumin Globulin Albumin/Globulin Ratio Urine Color Urine Appearance Urine pH Ur Specific [place] Urine Protein Urine Glucose (UA) Urine Ketones Urine Blood Urine Nitrate Urine Bilirubin Urine Urobilinogen Ur Leukocyte Esterase Urine RBC Urine WBC Urine Bacteria Assessment & Plan - Assessment and Plan (Free Text) Assessment: 1) Hematuria likely from traumatic holland 2) Recurrent catheter associated UTI 3) Acute on chronic anemia likely due to hematuria 4) Chronic abdominal pain likely due to metastasis 5) Constipation likely due to opioid 6) Metastatic prostate cancer s/p ADT and palliative radiation on Lupron, 7) H/o seizures, 8) glaucoma 9) Dyslipidemia Plan: CT abdomen and pelvis reviewed with mild fecal impaction, small pericardial effusion, multiple bone metastasis, enlarged prostate, and possible cystitis. Patient is admitted for observation of hematuria. Patient has advanced prostate cancer, and is currently on supportive care. Will hydrate with NS@ 75 cc/hr, and monitor the urine output and H/H. For CAUTI, urine culture and blood cultures were sent, will start Merrem based on last urine culture sensitivity. ID is consulted. On protonix for Gi prophylaxis. Will add miralax for constipation. Patient is on percocet and fentanyl patch for pain. Will continue Lopid for dyslipedemia. On tegretol for seizure. External compressive device for DVT prop hylaxis due to hematuria. Patient seen, examined and case discussed with Dr. Bae. - Date & Time Date: 07/07/18 Time: 14:45
[2018-07-07] MEDS: Sodium Chloride 0.9% 1,000 ML IV SCH (15:00)
--- NOTE | 2018-07-07 17:50 | CP.PCM.CON ---
<You Wise - Last Filed: 07/07/18 17:46> History of Present Illness - History of Present Illness History of Present Illness: You Wise D.O. PGY-3, Internal Medicine Resident, Infectious Disease Consultation Note 88 year old male with a PMH of metastatic prostate cancer, seizures, glaucoma, dementia, chronic indwelling holland with previous multiple UTIs with E.coli, Klebsiella, and Enterococcus, who presents due to hematuria. Infectious disease consultation was requested for hematuria/chronic UTI. Patient was seen and examined at bedside in ER. Patient accompanied by family member. Apparently there was an issue with the holland not draining appropriate, and despite a change a visiting nurse there was urine output and so patient was brought in. At this time patient appears comfortable, laying in bed in NAD. Most of this history is obtained from family member. Patient cites no major complaints at this time. Review of Systems - Review of Systems All systems: reviewed and no additional remarkable complaints except (as per HPI) Past Patient History - Infectious Disease Hx of Infectious Diseases: None - Tetanus Immunizations Tetanus Immunization: Unknown - Past Medical History & Family History Past Medical History?: Yes - Past Social History Smoking Status: Unknown If Ever Smoked - CARDIAC Hx Pacemaker: No - PULMONARY Hx Respiratory Disorders: Yes (H/O SMOKING CIGARETTES) Other/Comment: EMPYEMA/SARCOIDOSIS - NEUROLOGICAL Hx Dizziness: Yes (syncope) Hx Seizures: Yes (last seizure 20 yrs ago) - HEENT Hx Cataracts: Yes (with bilateral sx) - RENAL Hx Chronic Kidney Disease: Yes Other/Comment: chronic holland-Prostate ca. - ENDOCRINE/METABOLIC Hx Endocrine Disorders: No - HEMATOLOGICAL/ONCOLOGICAL Hx Cancer: Yes (prostate) - INTEGUMENTARY Hx Dermatological Problems: Yes - MUSCULOSKELETAL/RHEUMATOLOGICAL Hx Arthritis: Yes - GASTROINTESTINAL Hx Gastrointestinal Disorders: No - GENITOURINARY/GYNECOLOGICAL Hx Genitourinary Disorders: Yes (UTI,CHRONIC HOLLAND CATHETER) - PSYCHIATRIC Hx Psychophysiologic Disorder: Yes Hx Substance Use: No - SURGICAL HISTORY Hx Mastectomy: No - ANESTHESIA Hx Anesthesia: No Hx Anesthesia Reactions: No Meds Allergies/Adverse Reactions: Allergies Allergy/AdvReac Type Severity Reaction Status Date / Time No Known Allergies Allergy Verified 05/27/18 18:01 - Medications Medications: Current Medications Carbamazepine (Tegretol) 200 mg PO TID [facility]; Protocol Fentanyl (Duragesic) 1 patch TD Q72 [facility] Gemfibrozil (Lopid) 600 mg PO BID [facility] Meropenem (Merrem Iv 1 Gm Premix) 1 gm in 50 mls @ 12.5 mls/hr IVPB Q8 [facility]; Protocol Sodium Chloride (Sodium Chloride 0.9%) 1,000 mls @ 75 mls/hr IV .[id number] [facility] Last Admin: 07/07/18 15:00 Dose: 75 mls/hr Oxycodone/Acetaminophen (Percocet 5/325 Mg Tab) 1 tab PO Q4H PRN PRN Reason: Pain, moderate (4-7) Stop: 07/10/18 14:33 Pantoprazole Sodium (Protonix Ec Tab) 40 mg PO 0600 [facility] Polyethylene Glycol (Miralax) 17 gm PO DAILY [facility] Physical Exam - Constitutional Appears: No Acute Distress, Chronically Ill - Head Exam Head Exam: ATRAUMATIC, NORMOCEPHALIC - Eye Exam Eye Exam: EOMI. absent: Scleral icterus - ENT Exam ENT Exam: Normal Exam - Neck Exam Neck exam: Positive for: Normal Inspection - Respiratory Exam Respiratory Exam: absent: Rhonchi - Cardiovascular Exam Cardiovascular Exam: RRR, +S1, +S2 - GI/Abdominal Exam GI & Abdominal Exam: Soft. absent: Distended - Exam Additional comments: holland in place with dark, hematuric urine - Extremities Exam Extremities exam: Negative for: tenderness - Neurological Exam Neurological exam: Alert - Skin Skin Exam: Dry, Warm Results - Vital Signs Recent Vital Signs: Last Vital Signs Temp 97.7 F 07/07/18 17:30 Pulse 97 H 07/07/18 17:30 Resp 20 07/07/18 17:30 BP 136/71 07/07/18 17:30 Pulse Ox 98 07/07/18 17:30 - Labs Result Diagrams: 07/07/18 10:20 07/07/18 10:20 Labs: Laboratory Results - last 24 hr 07/07/18 07/07/18 07/07/18 10:20 10:20 11:00 WBC 6.2 RBC 2.83 L Hgb 8.6 L Hct 26.0 L MCV 91.9 MCH 30.4 MCHC 33.1 RDW 13.7 Plt Count 244 MPV 8.9 Neut % (Auto) 61.1 Lymph % (Auto) 30.4 Williamson % (Auto) 7.7 H Eos % (Auto) 0.8 L Baso % (Auto) 0.0 Lymph # (Auto) 1.9 Williamson # (Auto) 0.5 Eos # (Auto) 0.1 Baso # (Auto) 0.00 Absolute Neuts (auto) 3.80 PT INR APTT Sodium 134 Potassium 4.4 Chloride 96 L Carbon Dioxide 26 Anion Gap 16 BUN 24 H Creatinine 0.6 L Est GFR ( Amer) > 60 Est GFR (Non-Af Amer) > 60 Random Glucose 102 Calcium 9.3 Total Bilirubin 0.3 AST 37 ALT 10 Alkaline Phosphatase 141 H Total Protein 8.0 Albumin 3.9 Globulin 4.1 Albumin/Globulin Ratio 1.0 L Urine Color Light brown Urine Appearance Slight-cloudy Urine pH 6.0 Ur Specific [place] 1.020 Urine Protein 100 H Urine Glucose (UA) Negative Urine Ketones Negative Urine Blood Large H Urine Nitrate Positive H Urine Bilirubin Negative Urine Urobilinogen 0.2 Ur Leukocyte Esterase Moderate H Urine RBC Tntc H Urine WBC Tntc H Urine Bacteria Many Blood Type Antibody Screen BBK History Checked 07/07/18 07/07/18 12:30 15:50 WBC RBC Hgb Hct MCV MCH MCHC RDW Plt Count MPV Neut % (Auto) Lymph % (Auto) Williamson % (Auto) Eos % (Auto) Baso % (Auto) Lymph # (Auto) Williamson # (Auto) Eos # (Auto) Baso # (Auto) Absolute Neuts (auto) PT 15.0 H INR 1.33 APTT 37.5 Sodium Potassium Chloride Carbon Dioxide Anion Gap BUN Creatinine Est GFR ( Amer) Est GFR (Non-Af Amer) Random Glucose Calcium Total Bilirubin AST ALT Alkaline Phosphatase Total Protein Albumin Globulin Albumin/Globulin Ratio Urine Color Urine Appearance Urine pH Ur Specific [place] Urine Protein Urine Glucose (UA) Urine Ketones Urine Blood Urine Nitrate Urine Bilirubin Urine Urobilinogen Ur Leukocyte Esterase Urine RBC Urine WBC Urine Bacteria Blood Type A POSITIVE Antibody Screen Negative BBK History Checked Patient has bt Assessment & Plan - Assessment and Plan (Free Text) Assessment: 88 year old male with a PMH of metastatic prostate cancer, seizures, glaucoma, dementia, chronic indwelling holland with previous multiple UTIs with E.coli, Klebsiella, and Enterococcus, who presents due to hematuria. Infectious disease consultation was requested for hematuria/chronic UTI. Plan: Catheter associated urinary tract infection from chronic indwelling catheter with history of prostate cancer Hematuria Afebrile with no leukocytosis Has previously grown Proteus and enteroccoccus in his urine, most recently grew proteus with multiple resistances Urine re-cultured Was being managed with meropenem, agree to continue for now Blood cultures Catheter care Review of chart also shows that hematuria was an issue previously with re commendations from urology to do frequent holland flushes We will follow Patient was seen and examined and case to be discussed with attending physician. Thank you for the pleasure of participating in the care of this interesting patient. - Date & Time Date: 07/07/18 Time: 17:51 <Evangelist García - Last Filed: 07/07/18 19:07> Meds - Medications Medications: Current Medications Carbamazepine (Tegretol) 200 mg PO TID [facility]; Protocol Last Admin: 07/07/18 18:11 Dose: 200 mg Fentanyl (Duragesic) 1 patch TD Q72 [facility] Gemfibrozil (Lopid) 600 mg PO BID [facility] Last Admin: 07/07/18 18:11 Dose: 600 mg Sodium Chloride (Sodium Chloride 0.9%) 1,000 mls @ 75 mls/hr IV .[id number] [facility] Last Admin: 07/07/18 15:00 Dose: 75 mls/hr Piperacillin Sod/Tazobactam Sod (Zosyn 3.375 In Ns 100ml) 100 mls @ 25 mls/hr IVPB Q8 [facility]; Protocol Stop: 07/16/18 22:01 Oxycodone/Acetaminophen (Percocet 5/325 Mg Tab) 1 tab PO Q4H PRN PRN Reason: Pain, moderate (4-7) Stop: 07/10/18 14:33 Pantoprazole Sodium (Protonix Ec Tab) 40 mg PO 0600 [facility] Polyethylene Glycol (Miralax) 17 gm PO DAILY [facility] Results - Vital Signs Recent Vital Signs: Last Vital Signs Temp 97.7 F 07/07/18 17:30 Pulse 97 H 07/07/18 17:30 Resp 20 07/07/18 17:30 BP 136/71 07/07/18 17:30 Pulse Ox 98 07/07/18 17:30 - Labs Result Diagrams: 07/07/18 10:20 07/07/18 10:20 Labs: Laboratory Results - last 24 hr 07/07/18 07/07/18 07/07/18 10:20 10:20 11:00 WBC 6.2 RBC 2.83 L Hgb 8.6 L Hct 26.0 L MCV 91.9 MCH 30.4 MCHC 33.1 RDW 13.7 Plt Count 244 MPV 8.9 Neut % (Auto) 61.1 Lymph % (Auto) 30.4 [place] % (Auto) 7.7 H Eos % (Auto) 0.8 L Baso % (Auto) 0.0 Lymph # (Auto) 1.9 [place] # (Auto) 0.5 Eos # (Auto) 0.1 Baso # (Auto) 0.00 Absolute Neuts (auto) 3.80 PT INR APTT Sodium 134 Potassium 4.4 Chloride 96 L Carbon Dioxide 26 Anion Gap 16 BUN 24 H Creatinine 0.6 L Est GFR ( Amer) > 60 Est GFR (Non-Af Amer) > 60 Random Glucose 102 Calcium 9.3 Total Bilirubin 0.3 AST 37 ALT 10 Alkaline Phosphatase 141 H Total Protein 8.0 Albumin 3.9 Globulin 4.1 Albumin/Globulin Ratio 1.0 L Urine Color Light brown Urine Appearance Slight-cloudy Urine pH 6.0 Ur Specific [place] 1.020 Urine Protein 100 H Urine Glucose (UA) Negative Urine Ketones Negative Urine Blood Large H Urine Nitrate Positive H Urine Bilirubin Negative Urine Urobilinogen 0.2 Ur Leukocyte Esterase Moderate H Urine RBC Tntc H Urine WBC Tntc H Urine Bacteria Many Blood Type Antibody Screen BBK History Checked 07/07/18 07/07/18 12:30 15:50 WBC RBC Hgb Hct MCV MCH MCHC RDW Plt Count MPV Neut % (Auto) Lymph % (Auto) Williamson % (Auto) Eos % (Auto) Baso % (Auto) Lymph # (Auto) Williamson # (Auto) Eos # (Auto) Baso # (Auto) Absolute Neuts (auto) PT 15.0 H INR 1.33 APTT 37.5 Sodium Potassium Chloride Carbon Dioxide Anion Gap BUN Creatinine Est GFR ( Amer) Est GFR (Non-Af Amer) Random Glucose Calcium Total Bilirubin AST ALT Alkaline Phosphatase Total Protein Albumin Globulin Albumin/Globulin Ratio Urine Color Urine Appearance Urine pH Ur Specific [place] Urine Protein Urine Glucose (UA) Urine Ketones Urine Blood Urine Nitrate Urine Bilirubin Urine Urobilinogen Ur Leukocyte Esterase Urine RBC Urine WBC Urine Bacteria Blood Type A POSITIVE Antibody Screen Negative BBK History Checked Patient has bt Attending/Attestation - Attestation I have personally seen and examined this patient.: Yes I have fully participated in the care of the patient.: Yes I have reviewed all pertinent clinical information: Yes
[2018-07-07] MEDS: Piperacillin/Tazobact 3.375 gm 100 ML IVPB SCH (21:55)
[2018-07-07] MEDS ORDERED: Meropenem IV 1 gm in NS 1 GM/50 ML BAG IVPB SCH (22:00)
[2018-07-07 23:33] VITALS: BMI 24.4
[2018-07-07] MEDS ORDERED: Pneumococcal 23-Valent Vaccine IM ONE (23:34)
[2018-07-07] MEDS ORDERED: Influenza Vaccine 60 mcg/0.5 mL SYR (4YR UP) IM ONE (23:34)
[2018-07-08] MEDS: Piperacillin/Tazobact 3.375 gm 100 ML IVPB SCH ×3 (05:29→21:47)
[2018-07-08] MEDS ORDERED: Pantoprazole 40 mg EC Tab PO SCH (06:00)
[2018-07-08 06:38] LABS: EOS # 0.1 (0.0-0.7); HEMOGLOBIN 7.7 g/dL (14.0-18.0); LYMPH # 2.6 (1.2-3.4); LYMPH % 42.1 % (22.0-35.0); MEAN CELL VOLUME 92.3 fl (80.0-105.0); MEAN CORPUSCULAR HEMOGLOBIN 29.6 pg (25.0-35.0); MEAN CORPUSCULAR HGB CONC 32.1 g/dl (31.0-37.0); MEAN PLATELET VOLUME 8.7 fl (7.0-11.0); MONO # 0.5 (0.1-0.6); MONO % 8.3 % (1.0-6.0); RBC 2.6 10^6/uL (3.5-6.1); RED CELL DISTRIBUTION WIDTH 13.9 % (11.5-14.5); WHITE BLOOD COUNT 6.2 10^3/uL (4.5-11.0)
[2018-07-08 07:19] LABS: ALB/GLOB RATIO 0.9 (1.1-1.8); ALBUMIN 3.5 g/dL (3.0-4.8); ALT/SGPT 8 U/L (7-56); AST/SGOT 45 U/L (17-59); BLOOD UREA NITROGEN 24 mg/dL (7-21); CALCIUM 8.8 mg/dL (8.4-10.5); GFR NON-AFRICAN AMERICAN > 60
[2018-07-08] MEDS: POLYETHYLENE GLYCOL 3350 17 GM/Dose PACKET PO SCH (09:30)
--- NOTE | 2018-07-08 10:12 | CP.PCM.PN ---
<Kaleigh Calvert - Last Filed: 07/08/18 10:08> Subjective - Date & Time of Evaluation Date of Evaluation: 07/08/18 Time of Evaluation: 06:35 - Subjective Subjective: Im progress note for Dr. Bae's service Patient with no acute events overnight. The hematuria has resolved. Patient had large bowel movement as per nurse. Denies cp, sob, fever or chills. Objective - Vital Signs/Intake and Output Vital Signs (last 24 hours): Temp Pulse Resp BP Pulse Ox 97.4 F L 93 H 18 124/62 96 07/08/18 08:09 07/08/18 08:09 07/08/18 08:09 07/08/18 08:09 07/08/18 08:09 Intake and Output: 07/08/18 07/08/18 06:59 18:59 Intake Total 700 Output Total 800 Balance -100 - Medications Medications: Current Medications Carbamazepine (Tegretol) 200 mg PO TID [facility]; Protocol Last Admin: 07/08/18 09:29 Dose: 200 mg Fentanyl (Duragesic) 1 patch TD Q72 [facility] Gemfibrozil (Lopid) 600 mg PO BID [facility] Last Admin: 07/08/18 09:30 Dose: 600 mg Sodium Chloride (Sodium Chloride 0.9%) 1,000 mls @ 75 mls/hr IV .[id number] [facility] Last Admin: 07/07/18 15:00 Dose: 75 mls/hr Piperacillin Sod/Tazobactam Sod (Zosyn 3.375 In Ns 100ml) 100 mls @ 25 mls/hr IVPB Q8 [facility]; Protocol Stop: 07/16/18 22:01 Last Admin: 07/08/18 05:29 Dose: 25 mls/hr Oxycodone/Acetaminophen (Percocet 5/325 Mg Tab) 1 tab PO Q4H PRN PRN Reason: Pain, moderate (4-7) Stop: 07/10/18 14:33 Pantoprazole Sodium (Protonix Ec Tab) 40 mg PO 0600 [facility] Polyethylene Glycol (Miralax) 17 gm PO DAILY [facility] Last Admin: 07/08/18 09:30 Dose: 17 gm - Labs Labs: 07/08/18 06:00 07/08/18 06:00 PT 15.0 SECONDS (9.4-12.5) H 07/07/18 12:30 INR 1.33 07/07/18 12:30 APTT 37.5 Seconds (26.9-38.3) 07/07/18 12:30 - Constitutional Appears: No Acute Distress, Chronically Ill - Head Exam Head Exam: ATRAUMATIC, NORMAL INSPECTION, NORMOCEPHALIC - Eye Exam Eye Exam: Normal appearance - ENT Exam ENT Exam: Mucous Membranes Moist - Neck Exam Neck Exam: Normal Inspection - Respiratory Exam Respiratory Exam: Clear to Ausculation Bilateral, NORMAL BREATHING PATTERN. absent: Rales, Rhonchi, Wheezes, Respiratory Distress, Stridor - Cardiovascular Exam Cardiovascular Exam: REGULAR RHYTHM, RRR, +S1, +S2. absent: Bradycardia, Tachycardia, Murmur - GI/Abdominal Exam GI & Abdominal Exam: Soft, Normal Bowel Sounds. absent: Distended, Firm, Guarding, Rigid, Tenderness, Pulsatile Mass, Rebound - Exam Additional comments: with clear urine. 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 Patient's hemoglobin doped to 7.7 from 8.6, asymptomatic and no history of CAD, will observe for now. On Zosyn for CAUTI, pending cultures. Patient is tolerating po. On fentanyl patch and percocet prn for pain. On Tegretol for seizures. Continue Lopid for dyslipidemia. On protonix for Gi prophylaxis. Continue with miralalx for constipation. Patient is on gentle hydration and is hemodynamically stable. DNI/DNR status is in place. Patient seen, examined and case discussed with Dr. Bae. <Kenny Bae - Last Filed: 07/08/18 18:08> Objective - Vital Signs/Intake and Output Vital Signs (last 24 hours): Temp Pulse Resp BP Pulse Ox 97.4 F L 93 H 18 124/62 96 07/08/18 08:09 07/08/18 08:09 07/08/18 08:09 07/08/18 08:09 07/08/18 08:09 Intake and Output: 07/08/18 07/08/18 06:59 18:59 Intake Total 700 Output Total 800 Balance -100 - Medications Medications: Current Medications Carbamazepine (Tegretol) 200 mg PO TID [facility]; Protocol Last Admin: 07/08/18 17:37 Dose: 200 mg Fentanyl (Duragesic) 1 patch TD Q72 [facility] Gemfibrozil (Lopid) 600 mg PO BID [facility] Last Admin: 07/08/18 17:37 Dose: 600 mg Sodium Chloride (Sodium Chloride 0.9%) 1,000 mls @ 75 mls/hr IV .[id number] [facility] Last Admin: 07/08/18 17:42 Dose: 75 mls/hr Piperacillin Sod/Tazobactam Sod (Zosyn 3.375 In Ns 100ml) 100 mls @ 25 mls/hr IVPB Q8 [facility]; Protocol Stop: 07/16/18 22:01 Last Admin: 07/08/18 14:40 Dose: 25 mls/hr Oxycodone/Acetaminophen (Percocet 5/325 Mg Tab) 1 tab PO Q4H PRN PRN Reason: Pain, moderate (4-7) Stop: 07/10/18 14:33 Pantoprazole Sodium (Protonix Ec Tab) 40 mg PO 0600 [facility] Polyethylene Glycol (Miralax) 17 gm PO DAILY [facility] Last Admin: 07/08/18 09:30 Dose: 17 gm - Labs Labs: 07/08/18 06:00 07/08/18 06:00 PT 15.0 SECONDS (9.4-12.5) H 07/07/18 12:30 INR 1.33 07/07/18 12:30 APTT 37.5 Seconds (26.9-38.3) 07/07/18 12:30 Assessment and Plan - Assessment and Plan (Free Text) Plan: Pt seen and examined by me. I have reviewed the note of the medical record administrator and I agree with it. I have discussed the assessment and plan with the resident. I have reviewed the medications and the last labs.
--- NOTE | 2018-07-08 11:25 | CP.PCM.PN ---
<You Wise - Last Filed: 07/08/18 11:22> Subjective - Date & Time of Evaluation Date of Evaluation: 07/08/18 Time of Evaluation: 09:35 - Subjective Subjective: You Wise D.O. PGY-3, Internal Medicine Resident, Infectious Disease Progress Note 88 year old male with a PMH of metastatic prostate cancer, seizures, glaucoma, dementia, chronic indwelling holland with previous multiple UTIs with E.coli, Klebsiella, and Enterococcus, who presents due to hematuria. Infectious disease consultation was requested for hematuria/chronic UTI. Patient was seen and examined at bedside. Overall feeling somewhat better. No more hematuria but has concentrated urine in holland. Objective - Vital Signs/Intake and Output Vital Signs (last 24 hours): Temp Pulse Resp BP Pulse Ox 97.4 F L 93 H 18 124/62 96 07/08/18 08:09 07/08/18 08:09 07/08/18 08:09 07/08/18 08:09 07/08/18 08:09 Intake and Output: 07/08/18 07/08/18 06:59 18:59 Intake Total 700 Output Total 800 Balance -100 - Medications Medications: Current Medications Carbamazepine (Tegretol) 200 mg PO TID [facility]; Protocol Last Admin: 07/08/18 09:29 Dose: 200 mg Fentanyl (Duragesic) 1 patch TD Q72 [facility] Gemfibrozil (Lopid) 600 mg PO BID [facility] Last Admin: 07/08/18 09:30 Dose: 600 mg Sodium Chloride (Sodium Chloride 0.9%) 1,000 mls @ 75 mls/hr IV .[id number] [facility] Last Admin: 07/07/18 15:00 Dose: 75 mls/hr Piperacillin Sod/Tazobactam Sod (Zosyn 3.375 In Ns 100ml) 100 mls @ 25 mls/hr IVPB Q8 [facility]; Protocol Stop: 07/16/18 22:01 Last Admin: 07/08/18 05:29 Dose: 25 mls/hr Oxycodone/Acetaminophen (Percocet 5/325 Mg Tab) 1 tab PO Q4H PRN PRN Reason: Pain, moderate (4-7) Stop: 07/10/18 14:33 Pantoprazole Sodium (Protonix Ec Tab) 40 mg PO 0600 [facility] Polyethylene Glycol (Miralax) 17 gm PO DAILY [facility] Last Admin: 07/08/18 09:30 Dose: 17 gm - Labs Labs: 07/08/18 06:00 07/08/18 06:00 PT 15.0 SECONDS (9.4-12.5) H 07/07/18 12:30 INR 1.33 07/07/18 12:30 APTT 37.5 Seconds (26.9-38.3) 07/07/18 12:30 - Constitutional Appears: No Acute Distress, Chronically Ill - Head Exam Head Exam: ATRAUMATIC, NORMOCEPHALIC - Eye Exam Eye Exam: EOMI. absent: Scleral icterus - ENT Exam ENT Exam: Normal Exam - Neck Exam Neck exam: Positive for: Normal Inspection - Respiratory Exam Respiratory Exam: absent: Rhonchi - Cardiovascular Exam Cardiovascular Exam: RRR, +S1, +S2 - GI/Abdominal Exam GI & Abdominal Exam: Soft. absent: Distended - Exam Additional comments: holland in place with concentrated yellow urine - Extremities Exam Extremities exam: Negative for: tenderness - Neurological Exam Neurological exam: Alert - Skin Skin Exam: Dry, Warm Assessment and Plan - Assessment and Plan (Free Text) Assessment: 88 year old male with a PMH of metastatic prostate cancer, seizures, glaucoma, dementia, chronic indwelling holland with previous multiple UTIs with E.coli, Klebsiella, and Enterococcus, who presents due to hematuria. Infectious disease consultation was requested for hematuria/chronic UTI. Plan: Catheter associated urinary tract infection from chronic indwelling catheter with history of prostate cancer Hematuria Afebrile with no leukocytosis Growing gran negative rods on urine already Continue merrem day 2 Blood cultures negative 2/2 day 1 We will follow Patient was seen and examined and case to be discussed with attending physician. Thank you for the pleasure of participating in the care of this interesting patient. <Evangelist García - Last Filed: 07/08/18 12:50> Objective - Vital Signs/Intake and Output Vital Signs (last 24 hours): Temp Pulse Resp BP Pulse Ox 97.4 F L 93 H 18 124/62 96 07/08/18 08:09 07/08/18 08:09 07/08/18 08:09 07/08/18 08:09 07/08/18 08:09 Intake and Output: 07/08/18 07/08/18 06:59 18:59 Intake Total 700 Output Total 800 Balance -100 - Medications Medications: Current Medications Carbamazepine (Tegretol) 200 mg PO TID [facility]; Protocol Last Admin: 07/08/18 09:29 Dose: 200 mg Fentanyl (Duragesic) 1 patch TD Q72 [facility] Gemfibrozil (Lopid) 600 mg PO BID [facility] Last Admin: 07/08/18 09:30 Dose: 600 mg Sodium Chloride (Sodium Chloride 0.9%) 1,000 mls @ 75 mls/hr IV .[id number] [facility] Last Admin: 07/07/18 15:00 Dose: 75 mls/hr Piperacillin Sod/Tazobactam Sod (Zosyn 3.375 In Ns 100ml) 100 mls @ 25 mls/hr IVPB Q8 [facility]; Protocol Stop: 07/16/18 22:01 Last Admin: 07/08/18 05:29 Dose: 25 mls/hr Oxycodone/Acetaminophen (Percocet 5/325 Mg Tab) 1 tab PO Q4H PRN PRN Reason: Pain, moderate (4-7) Stop: 07/10/18 14:33 Pantoprazole Sodium (Protonix Ec Tab) 40 mg PO 0600 [facility] Polyethylene Glycol (Miralax) 17 gm PO DAILY [facility] Last Admin: 07/08/18 09:30 Dose: 17 gm - Labs Labs: 07/08/18 06:00 07/08/18 06:00 PT 15.0 SECONDS (9.4-12.5) H 07/07/18 12:30 INR 1.33 07/07/18 12:30 APTT 37.5 Seconds (26.9-38.3) 07/07/18 12:30 Attending/Attestation - Attestation I have personally seen and examined this patient.: Yes I have fully participated in the care of the patient.: Yes I have reviewed all pertinent clinical information, including history, physical exam and plan: Yes
[2018-07-08] MEDS: Sodium Chloride 0.9% 1,000 ML IV SCH (17:42)
--- NOTE | 2018-07-08 20:26 | HP ---
DATE OF EXAM: 07/08/2018 HISTORY OF PRESENT ILLNESS: The patient was seen and examined. I do agree with the note of the emergency medical services coordinator. The patient has a history of hematuria. He has also history of chronic UTIs. He has a chronic indwelling Bray catheter because of urinary retention and also because of enlarged prostate. He has prostate cancer that he is being treated for. His anemia is chronic and is multifactorial. He has hematuria and metastatic disease of his prostate. The patient has constipation. He does get pain medication and this could be worsening his constipation. He has dyslipidemia. He is on statin therapy for this. He is receiving Tegretol for seizure disorder. The patient's son was updated on current plan of care. He is going to have cultures that are done, most likely they will be positive. He has a history of gram-negative urine cultures. He is on a fentanyl patch for his pain. 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 The patient is on MiraLax for constipation. He is given IV fluids with normal saline. I will discontinue his normal saline at this point. His gross hematuria has improved. At the current, he is a DNR and DNI. Kenny Bae MD
[2018-07-09] MEDS: Piperacillin/Tazobact 3.375 gm 100 ML IVPB SCH (05:19)
[2018-07-09 06:34] LABS: BASO # 0.01 K/mm3 (0.0-2.0); BASO % 0.1 % (0.0-3.0); EOS # 0.1 (0.0-0.7); EOS % 1.5 % (1.5-5.0); LYMPH # 3.7 (1.2-3.4); LYMPH % 53.1 % (22.0-35.0); MEAN CELL VOLUME 93.7 fl (80.0-105.0); MEAN CORPUSCULAR HEMOGLOBIN 29.9 pg (25.0-35.0); MEAN CORPUSCULAR HGB CONC 31.9 g/dl (31.0-37.0); MEAN PLATELET VOLUME 8.5 fl (7.0-11.0); MONO # 0.6 (0.1-0.6); MONO % 8.7 % (1.0-6.0); RBC 2.68 10^6/uL (3.5-6.1); RED CELL DISTRIBUTION WIDTH 14.1 % (11.5-14.5); WHITE BLOOD COUNT 6.9 10^3/uL (4.5-11.0)
[2018-07-09 06:42] LABS: IRON 60 ug/dL (45-180)
[2018-07-09 06:51] LABS: ALB/GLOB RATIO 0.9 (1.1-1.8); ALBUMIN 3.4 g/dL (3.0-4.8); ALT/SGPT < 6 U/L (7-56); AST/SGOT 47 U/L (17-59); BLOOD UREA NITROGEN 21 mg/dL (7-21); CALCIUM 8.9 mg/dL (8.4-10.5); GFR NON-AFRICAN AMERICAN > 60
[2018-07-09 06:53] LABS: % IRON SATURATION 29 % (20-55); TOTAL IRON BINDING CAPACITY 205 ug/dL (261-462)
[2018-07-09 07:28] VITALS: BP 150/71; PULSE 85; RESP 20; TEMP 97.9; O2SAT 95
[2018-07-09] MEDS ORDERED: Darbepoetin Alfa 100 mcg/ml Inj IVP ONE (09:01)
--- NOTE | 2018-07-09 09:14 | CP.PCM.DIS ---
<Kaleihg Calvert - Last Filed: 07/09/18 13:30> Provider - Provider Date of Admission: 07/07/18 13:52 Attending physician: Kenny Bae MD Primary care physician: Glynn Shields MD Consults: 07/07/18 14:28 Infectious Disease Consult Routine Comment: Consulting Provider: Evangelist García Consulting Physician: Evangelist García Reason for Consult: UTI/ chronic indewling holland catheter 07/07/18 23:11 Nursing Referral for Palliative Care Routine Comment: tavo score Physician Instructions: Reason For Exam: assess Social Work Referral Routine Comment: d/c plan Physician Instructions: Reason For Exam: assess 07/07/18 23:34 Case Management Referral Routine Comment: Physician Instructions: Reason For Exam: Reason for Referral: Discharge Planning Nursing Referral for Wound Care Routine Comment: Physician Instructions: Reason For Exam: assess 07/08/18 02:34 Nursing Referral for Wound Care Routine Comment: Physician Instructions: Reason For Exam: Buttocks red & very small rash on R hip Time Spent in preparation of Discharge (in minutes): 45 Diagnosis - Discharge Diagnosis (1) UTI due to Klebsiella species Status: Acute (2) Acute on chronic blood loss anemia Status: Acute (3) Chronic indwelling [place] catheter Status: Chronic (4) Hematuria Status: Resolved (5) Adenocarcinoma of prostate, stage 4 Status: Chronic (6) Constipation Status: Chronic Hospital Course - Lab Results Lab Results: Micro Results 07/07/18 Unknown Urine,Clean Catch Urine Culture - Final Klebsiella Oxytoca 07/07/18 10:20 Blood Blood Culture - Preliminary NO GROWTH AFTER 24 HOURS 07/07/18 11:00 Blood Blood Culture - Preliminary NO GROWTH AFTER 24 HOURS Most Recent Lab Values WBC 6.9 10^3/uL (4.5-11.0) 07/09/18 06:10 RBC 2.68 10^6/uL (3.5-6.1) L 07/09/18 06:10 Hgb 8.0 g/dL (14.0-18.0) L 07/09/18 06:10 Hct 25.1 % (42.0-52.0) L 07/09/18 06:10 MCV 93.7 fl (80.0-105.0) 07/09/18 06:10 MCH 29.9 pg (25.0-35.0) 07/09/18 06:10 MCHC 31.9 g/dl (31.0-37.0) 07/09/18 06:10 RDW 14.1 % (11.5-14.5) 07/09/18 06:10 Plt Count 268 10^3/uL (120.0-450.0) 07/09/18 06:10 MPV 8.5 fl (7.0-11.0) 07/09/18 06:10 Neut % (Auto) 36.6 % (50.0-68.0) L 07/09/18 06:10 Lymph % (Auto) 53.1 % (22.0-35.0) H 07/09/18 06:10 [place] % (Auto) 8.7 % (1.0-6.0) H 07/09/18 06:10 Eos % (Auto) 1.5 % (1.5-5.0) 07/09/18 06:10 Baso % (Auto) 0.1 % (0.0-3.0) 07/09/18 06:10 Lymph # (Auto) 3.7 (1.2-3.4) H 07/09/18 06:10 [place] # (Auto) 0.6 (0.1-0.6) 07/09/18 06:10 Eos # (Auto) 0.1 (0.0-0.7) 07/09/18 06:10 Baso # (Auto) 0.01 K/mm3 (0.0-2.0) 07/09/18 06:10 Absolute Neuts (auto) 2.51 (1.4-6.5) 07/09/18 06:10 PT 15.0 SECONDS (9.4-12.5) H 07/07/18 12:30 INR 1.33 07/07/18 12:30 APTT 37.5 Seconds (26.9-38.3) 07/07/18 12:30 Sodium 139 mmol/L (132-148) 07/09/18 06:10 Potassium 4.0 mmol/L (3.6-5.0) 07/09/18 06:10 Chloride 106 mmol/L (98-107) 07/09/18 06:10 Carbon Dioxide 25 mmol/L (21-33) 07/09/18 06:10 Anion Gap 12 (10-20) 07/09/18 06:10 BUN 21 mg/dL (7-21) 07/09/18 06:10 Creatinine 0.6 mg/dl (0.8-1.5) L 07/09/18 06:10 Est GFR ( Amer) > 60 07/09/18 06:10 Est GFR (Non-Af Amer) > 60 07/09/18 06:10 Random Glucose 91 mg/dL (70-110) 07/09/18 06:10 Calcium 8.9 mg/dL (8.4-10.5) 07/09/18 06:10 Phosphorus 4.0 mg/dL (2.5-4.5) 07/08/18 06:00 Magnesium 1.9 mg/dL (1.7-2.2) 07/08/18 06:00 Iron 60 ug/dL (45-180) 07/09/18 06:10 TIBC 205 ug/dL (261-462) L 07/09/18 06:10 % Saturation 29 % (20-55) 07/09/18 06:10 Total Bilirubin 0.2 mg/dL (0.2-1.3) 07/09/18 06:10 AST 47 U/L (17-59) 07/09/18 06:10 ALT < 6 U/L (7-56) L 07/09/18 06:10 Alkaline Phosphatase 110 U/L (38-126) 07/09/18 06:10 Total Protein 7.1 g/dL (5.8-8.3) 07/09/18 06:10 Albumin 3.4 g/dL (3.0-4.8) 07/09/18 06:10 Globulin 3.7 gm/dL 07/09/18 06:10 Albumin/Globulin Ratio 0.9 (1.1-1.8) L 07/09/18 06:10 Urine Color Light brown (YELLOW) 07/07/18 11:00 Urine Appearance Slight-cloudy (CLEAR) 07/07/18 11:00 Urine pH 6.0 (4.7-8.0) 07/07/18 11:00 Ur Specific [place] 1.020 (1.005-1.035) 07/07/18 11:00 Urine Protein 100 mg/dL (<30 mg/dL) H 07/07/18 11:00 Urine Glucose (UA) Negative mg/dL (NEGATIVE) 07/07/18 11:00 Urine Ketones Negative mg/dL (NEGATIVE) 07/07/18 11:00 Urine Blood Large (NEGATIVE) H 07/07/18 11:00 Urine Nitrate Positive (NEGATIVE) H 07/07/18 11:00 Urine Bilirubin Negative (NEGATIVE) 07/07/18 11:00 Urine Urobilinogen 0.2 E.U./dL (<1 E.U./dL) 07/07/18 11:00 Ur Leukocyte Esterase Moderate Jus/uL (NEGATIVE) H 07/07/18 11:00 Urine RBC Tntc /hpf (0-2) H 07/07/18 11:00 Urine WBC Tntc /hpf (0-6) H 07/07/18 11:00 Urine Bacteria Many /hpf (NONE) 07/07/18 11:00 Blood Type A POSITIVE 07/07/18 15:50 Antibody Screen Negative 07/07/18 15:50 BBK History Checked Patient has bt 07/07/18 15:50 - Hospital Course Hospital Course: Patient is an 88 y/o Make with PMHx of metastatic prostate cancer s/p ADT and palliative radiation on Lupron, seizures, glaucoma, dementia, UTI w/ indwelling Holland (+ for E.coli, Klebsiella, and Enterococcus), recently admitted with UTI due to Proteus mirabilis presented to the ED due to hematuria from traumatic Holland catheter. In the ED, patient was noted to have a drop in hemoglobin. Thus patient was admitted for observation. Patient's hematuria resolved. Patient's hemoglobin dropped to 7.7, however improved to 8. Patient was given aranesp for the anemia. Furthermore, patient was found to have UTI and received zosyn and vanco for 3 days. Blood culture with no growth, urine culture revealed klebsiella which is sensitive to Levaquin. Thus patient is to be discharged home with 5 days of Levaquin. Patient with poor prognosis, and has DNI/DNR status. Diet: Resume regular diet with low fat. Activity: Resume baseline activity. - Date & Time of H&P Date of H&P: 07/07/18 Time of H&P: 14:44 Discharge Exam - Head Exam Head Exam: ATRAUMATIC, NORMAL INSPECTION, NORMOCEPHALIC - Eye Exam Eye Exam: EOMI, Normal appearance, PERRL Pupil Exam: NORMAL ACCOMODATION - ENT Exam ENT Exam: Mucous Membranes Dry - Neck Exam Neck exam: Normal Inspection - Respiratory Exam Respiratory Exam: Clear to PA & Lateral, NORMAL BREATHING PATTERN, UNREMARKABLE. absent: Rales, Rhonchi, Wheezes, Respiratory Distress, Stridor - Cardiovascular Exam Cardiovascular Exam: REGULAR RHYTHM, RRR, +S1, +S2. absent: Bradycardia, Tachycardia, Gallop, Irregular Rhythm, JVD, Rubs, Systolic Murmur - GI/Abdominal Exam GI & Abdominal Exam: Normal Bowel Sounds, Unremarkable. absent: Distended, Firm, Guarding, Rebound, Rigid, Soft, Tenderness - Extremities Exam Extremities exam: normal inspection - Back Exam Back exam: NORMAL INSPECTION - Neurological Exam Neurological exam: Alert, Oriented x3 - Psychiatric Exam Psychiatric exam: Normal Affect, Normal Mood - Skin Skin Exam: Dry, Normal Color, Warm Discharge Plan - Discharge Medications Prescriptions: Levofloxacin [Levaquin] 750 mg PO DAILY 5 Days #5 tablet Polyethylene Glycol 3350 [Miralax] 17 gm PO DAILY PRN 30 Days #30 packet PRN Reason: Constipation - Follow Up Plan Condition: FAIR Disposition: HOME/ ROUTINE Instructions: Urinary Tract Infection, Adult (DC), How to Care for Your Holland Catheter, Male, Holland Catheter, Male Additional Instructions: Patient is to be discharged home to follow up with PMD in a week. Patient to be discharged with Levaquin 750 daily for 5 days. For constipation, patient take miralax as needed. Please keep the Holland catheter secure to your body to avoid migration. Please return if the symptoms returns or call 911. Referrals: Glynn Shields MD [Primary Care Provider] - <Kenny Bae - Last Filed: 07/09/18 18:27> Provider - Provider Date of Admission: 07/07/18 13:52 Attending physician: Kenny Bae MD Primary care physician: Glynn Shields MD Consults: 07/07/18 14:28 Infectious Disease Consult Routine Comment: Consulting Provider: Evangelist García Consulting Physician: Evangelist García Reason for Consult: UTI/ chronic indewling holland catheter 07/07/18 23:11 Nursing Referral for Palliative Care Routine Comment: tavo score Physician Instructions: Reason For Exam: assess Social Work Referral Routine Comment: d/c plan Physician Instructions: Reason For Exam: assess 07/07/18 23:34 Case Management Referral Routine Comment: Physician Instructions: Reason For Exam: Reason for Referral: Discharge Planning Nursing Referral for Wound Care Routine Comment: Physician Instructions: Reason For Exam: assess 07/08/18 02:34 Nursing Referral for Wound Care Routine Comment: Physician Instructions: Reason For Exam: Buttocks red & very small rash on R hip Hospital Course - Lab Results Lab Results: Micro Results 07/07/18 10:20 Blood Blood Culture - Preliminary NO GROWTH AFTER 48 HOURS 07/07/18 11:00 Blood Blood Culture - Preliminary NO GROWTH AFTER 48 HOURS 07/07/18 Unknown Urine,Clean Catch Urine Culture - Final Klebsiella Oxytoca Most Recent Lab Values WBC 6.9 10^3/uL (4.5-11.0) 07/09/18 06:10 RBC 2.68 10^6/uL (3.5-6.1) L 07/09/18 06:10 Hgb 8.0 g/dL (14.0-18.0) L 07/09/18 06:10 Hct 25.1 % (42.0-52.0) L 07/09/18 06:10 MCV 93.7 fl (80.0-105.0) 07/09/18 06:10 MCH 29.9 pg (25.0-35.0) 07/09/18 06:10 MCHC 31.9 g/dl (31.0-37.0) 07/09/18 06:10 RDW 14.1 % (11.5-14.5) 07/09/18 06:10 Plt Count 268 10^3/uL (120.0-450.0) 07/09/18 06:10 MPV 8.5 fl (7.0-11.0) 07/09/18 06:10 Neut % (Auto) 36.6 % (50.0-68.0) L 07/09/18 06:10 Lymph % (Auto) 53.1 % (22.0-35.0) H 07/09/18 06:10 [place] % (Auto) 8.7 % (1.0-6.0) H 07/09/18 06:10 Eos % (Auto) 1.5 % (1.5-5.0) 07/09/18 06:10 Baso % (Auto) 0.1 % (0.0-3.0) 07/09/18 06:10 Lymph # (Auto) 3.7 (1.2-3.4) H 07/09/18 06:10 [place] # (Auto) 0.6 (0.1-0.6) 07/09/18 06:10 Eos # (Auto) 0.1 (0.0-0.7) 07/09/18 06:10 Baso # (Auto) 0.01 K/mm3 (0.0-2.0) 07/09/18 06:10 Absolute Neuts (auto) 2.51 (1.4-6.5) 07/09/18 06:10 PT 15.0 SECONDS (9.4-12.5) H 07/07/18 12:30 INR 1.33 07/07/18 12:30 APTT 37.5 Seconds (26.9-38.3) 07/07/18 12:30 Sodium 139 mmol/L (132-148) 07/09/18 06:10 Potassium 4.0 mmol/L (3.6-5.0) 07/09/18 06:10 Chloride 106 mmol/L (98-107) 07/09/18 06:10 Carbon Dioxide 25 mmol/L (21-33) 07/09/18 06:10 Anion Gap 12 (10-20) 07/09/18 06:10 BUN 21 mg/dL (7-21) 07/09/18 06:10 Creatinine 0.6 mg/dl (0.8-1.5) L 07/09/18 06:10 Est GFR ( Amer) > 60 07/09/18 06:10 Est GFR (Non-Af Amer) > 60 07/09/18 06:10 Random Glucose 91 mg/dL (70-110) 07/09/18 06:10 Calcium 8.9 mg/dL (8.4-10.5) 07/09/18 06:10 Phosphorus 4.0 mg/dL (2.5-4.5) 07/08/18 06:00 Magnesium 1.9 mg/dL (1.7-2.2) 07/08/18 06:00 Iron 60 ug/dL (45-180) 07/09/18 06:10 TIBC 205 ug/dL (261-462) L 07/09/18 06:10 % Saturation 29 % (20-55) 07/09/18 06:10 Ferritin 230.0 ng/mL 07/09/18 06:10 Total Bilirubin 0.2 mg/dL (0.2-1.3) 07/09/18 06:10 AST 47 U/L (17-59) 07/09/18 06:10 ALT < 6 U/L (7-56) L 07/09/18 06:10 Alkaline Phosphatase 110 U/L (38-126) 07/09/18 06:10 Total Protein 7.1 g/dL (5.8-8.3) 07/09/18 06:10 Albumin 3.4 g/dL (3.0-4.8) 07/09/18 06:10 Globulin 3.7 gm/dL 07/09/18 06:10 Albumin/Globulin Ratio 0.9 (1.1-1.8) L 07/09/18 06:10 Urine Color Light brown (YELLOW) 07/07/18 11:00 Urine Appearance Slight-cloudy (CLEAR) 07/07/18 11:00 Urine pH 6.0 (4.7-8.0) 07/07/18 11:00 Ur Specific [place] 1.020 (1.005-1.035) 07/07/18 11:00 Urine Protein 100 mg/dL (<30 mg/dL) H 07/07/18 11:00 Urine Glucose (UA) Negative mg/dL (NEGATIVE) 07/07/18 11:00 Urine Ketones Negative mg/dL (NEGATIVE) 07/07/18 11:00 Urine Blood Large (NEGATIVE) H 07/07/18 11:00 Urine Nitrate Positive (NEGATIVE) H 07/07/18 11:00 Urine Bilirubin Negative (NEGATIVE) 07/07/18 11:00 Urine Urobilinogen 0.2 E.U./dL (<1 E.U./dL) 07/07/18 11:00 Ur Leukocyte Esterase Moderate Jus/uL (NEGATIVE) H 07/07/18 11:00 Urine RBC Tntc /hpf (0-2) H 07/07/18 11:00 Urine WBC Tntc /hpf (0-6) H 07/07/18 11:00 Urine Bacteria Many /hpf (NONE) 07/07/18 11:00 Blood Type A POSITIVE 07/07/18 15:50 Antibody Screen Negative 07/07/18 15:50 BBK History Checked Patient has bt 07/07/18 15:50 - Hospital Course Hospital Course: Pt seen and examined by me. I have reviewed the note of the medical secretary teacher and I agree with it. I have discussed the assessment and plan with the resident. I have reviewed the medications and the last labs.
[2018-07-09] MEDS: POLYETHYLENE GLYCOL 3350 17 GM/Dose PACKET PO SCH (10:09)
--- NOTE | 2018-07-09 15:04 | CP.PCM.PN ---
<You Wise - Last Filed: 07/09/18 15:02> Subjective - Date & Time of Evaluation Date of Evaluation: 07/09/18 Time of Evaluation: 08:20 - Subjective Subjective: You Wise D.O. PGY-3, Internal Medicine Resident, Infectious Disease Progress Note 88 year old male with a PMH of metastatic prostate cancer, seizures, glaucoma, dementia, chronic indwelling holland with previous multiple UTIs with E.coli, Klebsiella, and Enterococcus, who presents due to hematuria. Infectious disease consultation was requested for hematuria/chronic UTI. Patient was seen and examined at bedside. Appears significantly better Seen eating breakfast comfortably. In great spirits Objective - Vital Signs/Intake and Output Vital Signs (last 24 hours): Temp Pulse Resp BP Pulse Ox 97.9 F 85 20 150/71 95 07/09/18 06:00 07/09/18 06:00 07/09/18 06:00 07/09/18 06:00 07/09/18 06:00 Intake and Output: 07/09/18 07/09/18 06:59 18:59 Intake Total 1000 600 Output Total 400 Balance 1000 200 - Medications Medications: Current Medications Carbamazepine (Tegretol) 200 mg PO TID [facility]; Protocol Last Admin: 07/09/18 14:46 Dose: 200 mg Fentanyl (Duragesic) 1 patch TD Q72 [facility] Gemfibrozil (Lopid) 600 mg PO BID [facility] Last Admin: 07/09/18 10:12 Dose: 600 mg Piperacillin Sod/Tazobactam Sod (Zosyn 3.375 In Ns 100ml) 100 mls @ 25 mls/hr IVPB Q8 [facility]; Protocol Stop: 07/16/18 22:01 Last Admin: 07/09/18 05:19 Dose: 25 mls/hr Oxycodone/Acetaminophen (Percocet 5/325 Mg Tab) 1 tab PO Q4H PRN PRN Reason: Pain, moderate (4-7) Stop: 07/10/18 14:33 Pantoprazole Sodium (Protonix Ec Tab) 40 mg PO 0600 [facility] Last Admin: 07/09/18 05:19 Dose: 40 mg Polyethylene Glycol (Miralax) 17 gm PO DAILY [facility] Last Admin: 07/09/18 10:09 Dose: 17 gm - Labs Labs: 07/09/18 06:10 07/09/18 06:10 PT 15.0 SECONDS (9.4-12.5) H 07/07/18 12:30 INR 1.33 07/07/18 12:30 APTT 37.5 Seconds (26.9-38.3) 07/07/18 12:30 - Constitutional Appears: No Acute Distress, Chronically Ill - Head Exam Head Exam: ATRAUMATIC, NORMOCEPHALIC - Eye Exam Eye Exam: EOMI. absent: Scleral icterus - ENT Exam ENT Exam: Normal Exam - Neck Exam Neck exam: Positive for: Normal Inspection - Respiratory Exam Respiratory Exam: absent: Rhonchi - Cardiovascular Exam Cardiovascular Exam: RRR, +S1, +S2 - GI/Abdominal Exam GI & Abdominal Exam: Soft. absent: Distended - Exam Additional comments: holland in place with yellow urine - Extremities Exam Extremities exam: Negative for: tenderness - Neurological Exam Neurological exam: Alert - Skin Skin Exam: Dry, Warm Assessment and Plan - Assessment and Plan (Free Text) Assessment: 88 year old male with a PMH of metastatic prostate cancer, seizures, glaucoma, dementia, chronic indwelling holland with previous multiple UTIs with E.coli, Klebsiella, and Enterococcus, who presents due to hematuria. Infectious disease consultation was requested for hematuria/chronic UTI. Plan: Catheter associated urinary tract infection from chronic indwelling catheter with history of prostate cancer Hematuria likely from manipulation Blood cultures 2/2 on day 2 Urine cultures show klebsiella oxytica mostly sensitive Can discontinue Zosyn Recommend discharged on Vantin 200 mg p.o. twice daily for a total duration of treatment of 7 days Patient was seen and examined and case to be discussed with attending physician. Thank you for the pleasure of participating in the care of this interesting patient. <Evangelist García - Last Filed: 07/09/18 21:26> Objective - Vital Signs/Intake and Output Vital Signs (last 24 hours): Temp Pulse Resp BP Pulse Ox 97.9 F 85 20 150/71 95 07/09/18 06:00 07/09/18 06:00 07/09/18 06:00 07/09/18 06:00 07/09/18 06:00 Intake and Output: 07/09/18 07/10/18 18:59 06:59 Intake Total 600 Output Total 400 Balance 200 - Labs Labs: 07/09/18 06:10 07/09/18 06:10 PT 15.0 SECONDS (9.4-12.5) H 07/07/18 12:30 INR 1.33 07/07/18 12:30 APTT 37.5 Seconds (26.9-38.3) 07/07/18 12:30 Attending/Attestation - Attestation I have personally seen and examined this patient.: Yes I have fully participated in the care of the patient.: Yes I have reviewed all pertinent clinical information, including history, physical exam and plan: Yes
--- NOTE | 2018-07-10 03:22 | DS ---
HOSPITAL COURSE: The patient was seen and examined. I do agree with the note of the medical equipment sales. I was involved in the plan of care. The patient has UTIs with indwelling catheter. He had an E. coli, Klebsiella, he was placed on p.o. antibiotic. The patient was seen by Infectious Disease. He continues to have the complication from his Bray. He has prostate cancer. The patient was given a dose of Aranesp because of anemia. He is tolerating heart-healthy diet. He has no complaints of any pain. He has some chronic pain from his prostate cancer bone. The patient's family was informed that the patient is going to be discharged home today and he will follow up as an outpatient. CONDITION: Stable. ACTIVITIES: Increase as tolerated. Kenny Bae MD
== END 2018-07-09 16:14 | disposition home health service (06) ==
LOC: ED 09:53 → ERH 13:52 → 3RNO 16:14
PROVIDERS: ADMIT Internal Medicine Nephrology; ATTEND Internal Medicine Nephrology
DX: T83.518A Infection and inflammatory reaction due to other urinary catheter, initial encounter (principal); N39.0 Urinary tract infection, site not specified; B96.1 Klebsiella pneumoniae [K. pneumoniae] as the cause of diseases classified elsewhere; Y84.6 Urinary catheterization as the cause of abnormal reaction of the patient, or of later complication, without mention of misadventure at the time of the procedure; N40.1 Benign prostatic hyperplasia with lower urinary tract symptoms; R33.8 Other retention of urine; C61 Malignant neoplasm of prostate; C79.89 Secondary malignant neoplasm of other specified sites; R31.0 Gross hematuria; G89.3 Neoplasm related pain (acute) (chronic); K59.03 Drug induced constipation; T40.2X5A Adverse effect of other opioids, initial encounter; E78.5 Hyperlipidemia, unspecified; G40.909 Epilepsy, unspecified, not intractable, without status epilepticus; F03.90 Unspecified dementia, unspecified severity, without behavioral disturbance, psychotic disturbance, mood disturbance, and anxiety; H40.9 Unspecified glaucoma; D50.0 Iron deficiency anemia secondary to blood loss (chronic); D62 Acute posthemorrhagic anemia; Z66 Do not resuscitate; Z79.818 Long term (current) use of other agents affecting estrogen receptors and estrogen levels; Z87.891 Personal history of nicotine dependence; Z99.3 Dependence on wheelchair
CPT/HCPCS: 36415; 74176; 80053; 81001; 82728; 83540; 83550; 83735; 84100; 85025; 85610; 85730; 86850; 86900; 87040; 87086; 87181; 96365; 99284; G0378; J0696; J0881; J2543; J7030

== ENCOUNTER 2018-07-28 10:28 | Inpatient (IN) | payer MEDICARE ==
[2018-07-28 10:33] VITALS: BMI 29.2
[2018-07-28] MEDS ORDERED: Sodium Chloride 0.9% 1,000 ML IV SCH (12:00)
--- NOTE | 2018-07-28 12:01 | ED PDOC ---
Arrival/HPI - General Historian: Patient - History of Present Illness Narrative History of Present Illness (Text): 07/28/18 11:56 88 y/o Male with PMHx of metastatic prostate cancer s/p ADT and palliative radiation on Lupron, seizures, glaucoma, dementia, and indwelling Herron cat heter, presents to the ED for Herron catheter replacement. As per son, patient has been experiencing darkening of his urine since Saturday and little to no urinary draining via the catheter last night, prompting him to present to the Ed for evaluation. Son states, patient's affect is mildly different from his baseline, and is usually communicative at baseline. At bedside, patient appears tired and responds to verbal stimuli. Patient denies any complaints at bedside. Denies any chest pain, shortness of breath or abdominal pain. PMD: Dr. Shields Time/Duration: < week Symptom Onset: Gradual Symptom Course: Unchanged Activities at Onset: Light Context: Home Past Medical History - Provider Review Nursing Documentation Reviewed: Yes - Infectious Disease Hx of Infectious Diseases: None - Tetanus Immunization Tetanus Immunization: Unknown - Cardiac Hx Cardiac Disorders: Yes Hx Congestive Heart Failure: Yes Hx Pacemaker: No Hx Peripheral Edema: Yes (ble +1) - Pulmonary Hx Respiratory Disorders: Yes (H/O SMOKING CIGARETTES) Hx Pneumonia: Yes Other/Comment: EMPYEMA/SARCOIDOSIS, left lung sx pt unsure what kind of sx - Neurological Hx Neurological Disorder: Yes Hx Dizziness: Yes (syncope) Hx Seizures: Yes (last seizure 20 yrs ago) - HEENT Hx HEENT Disorder: Yes Hx Cataracts: Yes (with bilateral sx) - Renal Hx Renal Disorder: Yes (retention) Other/Comment: chronic herron-Prostate ca. - Endocrine/Metabolic Hx Endocrine Disorders: No - Hematological/Oncological Hx Blood Disorders: Yes (sepsis) Hx Cancer: Yes (prostate) Other/Comment: lupron injections once a month - Integumentary Hx Dermatological Disorder: Yes Other/Comment: left mid back fading surgical scar and area of round indentation in skin left outer mid back, discolored toenails, r ft 4th toe nail falling off, r ft great toe red dry wound, 2nd toenail black, left foot dry toenails, left hip pink pealed skin rash, buttocks reddened, lle fading old bruises - Musculoskeletal/Rheumatological Hx Falls: Yes - Gastrointestinal Hx Gastrointestinal Disorders: No - Genitourinary/Gynecological Hx Genitourinary Disorders: Yes (UTI,CHRONIC HERRON CATHETER) Hx Hematuria: Yes Hx Urinary Tract Infection: Yes (multiple) - Psychiatric Hx Substance Use: No - Surgical History Hx Mastectomy: No Other/Comment: left lung sx - Anesthesia Hx Anesthesia: No Hx Anesthesia Reactions: No Family/Social History - Physician Review Nursing Documentation Reviewed: Yes Family/Social History: Unknown Family HX Smoking Status: Unknown If Ever Smoked Hx Alcohol Use: No Hx Substance Use: No Allergies/Home Meds Allergies/Adverse Reactions: Allergies No Known Allergies Allergy (Verified 05/27/18 18:01) Home Medications: Home Meds Medication Instructions Recorded Confirmed Fentanyl [Duragesic Patch] 50 mcg TD Q72 05/22/18 07/09/18 Gemfibrozil [Lopid] 600 mg PO BID 05/22/18 07/09/18 Omeprazole 40 mg PO DAILY 05/22/18 07/07/18 oxyCODONE/Acetaminophen [Percocet 1 tab PO Q4H PRN 06/16/18 07/07/18 5/325 mg Tab] Review of Systems - Physician Review All systems were reviewed & negative as marked: Yes - Review of Systems Respiratory: absent: SOB, Cough Cardiovascular: absent: Chest Pain Gastrointestinal: absent: Abdominal Pain Genitourinary Male: Urinary Output Changes Skin: absent: Rash Neurological: absent: Headache Endocrine: absent: Diaphoresis Physical Exam - Physical Exam Narrative Physical Exam (Text): 07/28/18 12:02 Gen: VS reviewed, alert, well developed, dry, nontoxic, mild distress. Unable to respond verbally. ENT: normal pharynx. Dry mucous membranes. Eye: EOMI, PERRL. Neck: no JVD, supple, no adenopathy. CV: regular rate, regular rhythm, no rubs, no murmur, no gallops, S1, S2, pulses equal and strong. Pulm: no distress, clear to auscultation, no wheeze, no rhonchi, breath sounds equal, no rales. Abd: soft, nontender, no guarding, no rebound, no rigidity, normal bowel sounds. Non-distended. Herron catheter in place with dark bloody urine and with small clots. Ext: no edema. Skin: good color, no rash, no cyanosis. Psych: limited secondary to dementia Neuro: limited secondary to dementia Vital Signs Reviewed: Yes Vital Signs Temp Pulse Resp BP Pulse Ox 07/28/18 10:32 98.5 F 101 H 18 162/101 H 97 Temperature: Afebrile Blood Pressure: Hypertensive Pulse: Tachycardic Respiratory Rate: Normal Appearance: Positive for: Well-Appearing, Non-Toxic, Comfortable Pain Distress: Mild Mental Status: Positive for: Confused Medical Decision Making ED Course and Treatment: 07/28/18 11:54 Impression: 88 year old male presents to the ED for evaluation of urinary color changes and increased confusion. Plan: -- Labs -- VBG -- CT of Head -- EKG -- Chest X-ray -- IV Fluids -- Blood Culture -- Urine Culture -- Urinalysis -- Reassess and disposition Prior Visits: Notes and results from previous visits were reviewed. Progress Notes: 07/28/18 13:54 Patient was witnessed to have generalized convulsions at bedside. Patient responded to a dose of ativan. As per son, patient has not had a seizure in 30 years. 07/28/18 13:[address] Etta ricci, patient to be admitted for sepsis stemming from uti. herron catheter was changed to new one in the ED with bloody urine return. patient had a single episode of generalized convulsions in the ED likley multifactorial from sepsis and missed antoconvulsives this morning. - RAD Interpretation Narrative RAD Interpretations (Text): 07/28/18 14:19 CT of Abdomen/Pelvis reviewed by radiologist, shows: FINDINGS: LOWER THORAX: Unremarkable. LIVER: Unremarkable. No gross lesion or ductal dilatation. GALLBLADDER AND BILE DUCTS: Unremarkable. PANCREAS: Unremarkable. No gross lesion or ductal dilatation. SPLEEN: Unremarkable. ADRENALS: Unremarkable. No mass. KIDNEYS AND URETERS: Mild right hydronephrosis and hydroureter. No left hydronephrosis. No renal calculus. Stable 1.7 cm rounded low-density mid right renal mass, .Measuring -6 Hounsfield units. Consistent with cyst Right posterior pararenal soft tissue mass measuring 2.5 x 3.2 cm. On prior examination, this measured 2.0 x 2.7 cm. There has been interval growth. Suspicious for metastasis. VASCULATURE: unremarkable. No aortic aneurysm. There is atherosclerotic calcification of the abdominal aorta. BOWEL: Mild retained feces. No bowel obstruction. In the inferior rectum, there is questionable soft tissue mass eccentrically along the left anterolateral wall. Recommend evaluation with colonoscopy to exclude rectal neoplasm. This is best seen on series 3, image 169 APPENDIX: Not identified. No secondary findings. PERITONEUM: Unremarkable. No free fluid. No free air. LYMPH NODES: There are multiple enlarged retroperitoneal and pelvic lymph nodes. Non- specific. The extent of lymphadenopathy is essentially unchanged. There perirectal lymph nodes identified. BLADDER: Nondistended. Herron catheter noted. REPRODUCTIVE: Enlarged prostate. BONES: Widespread sclerotic metastasis as on prior examination. The extent of metastasis is essentially unchanged from the prior examination. OTHER FINDINGS: None. IMPRESSION: Right hydroureteronephrosis. No obstructing stone or mass identified. Right posterior para renal soft tissue mass. Suspicious for metastasis. Enlarged compared to prior CT. Possible inferior rectal mass. Further evaluation with colonoscopy is advised. Multiple enlarged retroperitoneal and pelvic lymph nodes. Perirectal lymph nodes. Widespread sclerotic metastasis. 07/28/18 14:20 CT of head reviewed by radiologist, shows: FINDINGS: HEMORRHAGE: No intracranial hemorrhage. BRAIN: No mass effect or edema. Mild diffuse age-appropriate atrophy. Mild periventricular white matter lucency consistent with chronic microvascular ischemic change. Appropriate for age. VENTRICLES: Unremarkable. No hydrocephalus. CALVARIUM: Unremarkable. PARANASAL SINUSES: Unremarkable as visualized. No significant inflammatory changes. MASTOID AIR CELLS: Nonspecific right mastoid effusion improved compared to prior CT examination. OTHER FINDINGS: None. IMPRESSION: Age related atrophy and chronic white matter ischemic change. No intracranial mass, hemorrhage or evidence of acute infarct. Mild right mastoid effusion common nonspecific. 07/28/18 14:22 Chest X-ray reviewed by radiologist, shows: FINDINGS: LUNGS: No active pulmonary disease. PLEURA: No significant pleural effusion identified, no pneumothorax apparent. CARDIOVASCULAR: Aortic calcification Normal cardiac size. No pulmonary vascular congestion. OSSEOUS STRUCTURES: No significant abnormalities. VISUALIZED UPPER ABDOMEN: Normal. OTHER FINDINGS: None. IMPRESSION: No active disease. Insurance Salesman: Radiologist - EKG Interpretation EKG Interpretation (Text): 07/28/18 12:23 ekg my read: sinus rhythm at 99 bpm, 1st degree av block, rbbb, artifact Interpreted by ED Physician: Yes - Scribe Statement The provider has reviewed the documentation as recorded by the Scribe Hilda Cruz. All medical record entries made by the Scribe were at my direction and personally dictated by me. I have reviewed the chart and agree that the record accurately reflects my personal performance of the history, physical exam, medical decision making, and the department course for this patient. I have also personally directed, reviewed, and agree with the discharge instructions and disposition. Disposition/Present on Arrival - Present on Arrival Any Indicators Present on Arrival: No History of DVT/PE: No History of Uncontrolled Diabetes: No Urinary Catheter: Yes History Surgical Site Infection Following: None - Disposition Have Diagnosis and Disposition been Completed?: Yes Diagnosis: Sepsis, Urinary tract infection, Seizure Disposition: HOSPITALIZED Disposition Time: 13:58 Patient Plan: Admission Patient Problems: Current Active Problems Problem Status Onset Seizure Acute Sepsis Acute Urinary tract infection Acute Condition: GUARDED Discharge Instructions (ExitCare): Sepsis (ED) Referrals: Glynn Shields MD [Primary Care Provider] - Follow up with primary
[2018-07-28 12:14] LABS: BASO # 0.01 K/mm3 (0.0-2.0); BASO % 0.1 % (0.0-3.0); EOS % 0.2 % (1.5-5.0); LYMPH # 2.1 (1.2-3.4); LYMPH % 15.5 % (22.0-35.0); MEAN CELL VOLUME 89.9 fl (80.0-105.0); MEAN CORPUSCULAR HEMOGLOBIN 29.9 pg (25.0-35.0); MEAN CORPUSCULAR HGB CONC 33.2 g/dl (31.0-37.0); MEAN PLATELET VOLUME 9.3 fl (7.0-11.0); MONO # 1.1 (0.1-0.6); MONO % 8.2 % (1.0-6.0); RBC 3.35 10^6/uL (3.5-6.1); RED CELL DISTRIBUTION WIDTH 14.7 % (11.5-14.5); WHITE BLOOD COUNT 13.3 10^3/uL (4.5-11.0)
[2018-07-28 12:16] LABS: VENOUS BLOOD GAS BASE EXCESS -4.8 mmol/L (0.0-2.0); VENOUS BLOOD GAS PO2 40 mm/Hg (30-55)
[2018-07-28 12:21] LABS: PH,URINE 6.5 (4.7-8.0); URINE BILIRUBIN NEGATIVE (NEGATIVE); URINE BLOOD LARGE (NEGATIVE); URINE GLUCOSE (UA) NEGATIVE (NEGATIVE); URINE LEUKOCYTE ESTERASE MODERATE Leu/uL (NEGATIVE); URINE PROTEIN 100 mg/dL (<30 mg/dL); URINE UROBILINOGEN 0.2 E.U./dL (<1 E.U./dL)
[2018-07-28 12:23] LABS: INR 1.45; PARTIAL THROMBOPLASTIN TIME 38.5 Seconds (26.9-38.3); PROTHROMBIN TIME 16.4 SECONDS (9.4-12.5)
[2018-07-28 12:26] LABS: URINE APPEARANCE CLOUDY (CLEAR); URINE COLOR LIGHT BROWN (YELLOW)
[2018-07-28] MEDS ORDERED: Cefepime IV 2 gm in NS 2 GM/100 ML BAG IVPB STA (12:32)
[2018-07-28 12:40] LABS: URINE BACTERIA LARGE /hpf; URINE RBC TNTC /hpf (0-2); URINE WBC TNTC /hpf (0-6)
[2018-07-28 12:59] LABS: ALB/GLOB RATIO 0.9 (1.1-1.8); ALBUMIN 3.4 g/dL (3.0-4.8); CALCIUM 9.1 mg/dL (8.4-10.5)
[2018-07-28] MEDS ORDERED: Calcium Gluconate in NS 1 GM/50 ML BAG IV ONE (12:59)
[2018-07-28] MEDS ORDERED: Dextrose 50% SYRINGE Inj (50 ml) IVP STA (12:59)
[2018-07-28] MEDS ORDERED: Insulin Regular 1 UNITS/0.01 ML ML IVP STA (12:59)
--- NOTE | 2018-07-28 13:16 | CT ---
Date of service: 07/28/2018 PROCEDURE: CT HEAD WITHOUT CONTRAST. HISTORY: altered mentation COMPARISON: 01/27/2018 TECHNIQUE: Axial computed tomography images were obtained through the head/brain without intravenous contrast. Radiation dose: Total exam DLP = 976.65 mGy-cm. This CT exam was performed using one or more of the following dose reduction techniques: Automated exposure control, adjustment of the mA and/or kV according to patient size, and/or use of iterative reconstruction technique. FINDINGS: HEMORRHAGE: No intracranial hemorrhage. BRAIN: No mass effect or edema. Mild diffuse age-appropriate atrophy. Mild periventricular white matter lucency consistent with chronic microvascular ischemic change. Appropriate for age. VENTRICLES: Unremarkable. No hydrocephalus. CALVARIUM: Unremarkable. PARANASAL SINUSES: Unremarkable as visualized. No significant inflammatory changes. MASTOID AIR CELLS: Nonspecific right mastoid effusion improved compared to prior CT examination. OTHER FINDINGS: None. IMPRESSION: Age related atrophy and chronic white matter ischemic change. No intracranial mass, hemorrhage or evidence of acute infarct. Mild right mastoid effusion common nonspecific.
--- NOTE | 2018-07-28 13:42 | CT ---
Date of service: 07/28/2018 PROCEDURE: CT Abdomen and Pelvis without intravenous contrast HISTORY: hematuria, stone COMPARISON: 07/07/2018 TECHNIQUE: Without contrast.. Contrast dose: 0 Radiation dose: Total exam DLP = 1097.89 mGy-cm. This CT exam was performed using one or more of the following dose reduction techniques: Automated exposure control, adjustment of the mA and/or kV according to patient size, and/or use of iterative reconstruction technique. FINDINGS: LOWER THORAX: Unremarkable. LIVER: Unremarkable. No gross lesion or ductal dilatation. GALLBLADDER AND BILE DUCTS: Unremarkable. PANCREAS: Unremarkable. No gross lesion or ductal dilatation. SPLEEN: Unremarkable. ADRENALS: Unremarkable. No mass. KIDNEYS AND URETERS: Mild right hydronephrosis and hydroureter. No left hydronephrosis. No renal calculus. Stable 1.7 cm rounded low-density mid right renal mass, .Measuring -6 Hounsfield units. Consistent with cyst Right posterior pararenal soft tissue mass measuring 2.5 x 3.2 cm. On prior examination, this measured 2.0 x 2.7 cm. There has been interval growth. Suspicious for metastasis. VASCULATURE: unremarkable. No aortic aneurysm. There is atherosclerotic calcification of the abdominal aorta. BOWEL: Mild retained feces. No bowel obstruction. In the inferior rectum, there is questionable soft tissue mass eccentrically along the left anterolateral wall. Recommend evaluation with colonoscopy to exclude rectal neoplasm. This is best seen on series 3, image 169 APPENDIX: Not identified. No secondary findings. PERITONEUM: Unremarkable. No free fluid. No free air. LYMPH NODES: There are multiple enlarged retroperitoneal and pelvic lymph nodes. Non-specific. The extent of lymphadenopathy is essentially unchanged. There perirectal lymph nodes identified. BLADDER: Nondistended. Bray catheter noted. REPRODUCTIVE: Enlarged prostate. BONES: Widespread sclerotic metastasis as on prior examination. The extent of metastasis is essentially unchanged from the prior examination. OTHER FINDINGS: None. IMPRESSION: Right hydroureteronephrosis. No obstructing stone or mass identified. Right posterior para renal soft tissue mass. Suspicious for metastasis. Enlarged compared to prior CT. Possible inferior rectal mass. Further evaluation with colonoscopy is advised. Multiple enlarged retroperitoneal and pelvic lymph nodes. Perirectal lymph nodes. Widespread sclerotic metastasis.
--- NOTE | 2018-07-28 13:50 | RAD ---
Date of service: 07/28/2018 HISTORY: aspiration COMPARISON: 06/16/2018 TECHNIQUE: 1 view obtained. FINDINGS: LUNGS: No active pulmonary disease. PLEURA: No significant pleural effusion identified, no pneumothorax apparent. CARDIOVASCULAR: Aortic calcification Normal cardiac size. No pulmonary vascular congestion. OSSEOUS STRUCTURES: No significant abnormalities. VISUALIZED UPPER ABDOMEN: Normal. OTHER FINDINGS: None. IMPRESSION: No active disease.
[2018-07-28 15:21] LABS: VENOUS BLOOD GAS BASE EXCESS -7.2 mmol/L (0.0-2.0); VENOUS BLOOD GAS PO2 141 mm/Hg (30-55); VENOUS BLOOD PH 7.26 (7.32-7.43)
--- NOTE | 2018-07-28 16:08 | PCM.SEPTIC ---
Sepsis Progress Note - Reassessment Type Date of Evaluation: 07/28/18 Time of Evaluation: 16:07 Reassessment Type: Non-invasive reassessment - Non Invasive Reassessment Were the most recent vital sign reviewed: Yes Vital Sign (Latest): Temp Pulse Resp BP Pulse Ox 98.6 F 106 H 18 128/63 98 07/28/18 12:33 07/28/18 15:41 07/28/18 15:41 07/28/18 15:41 07/28/18 15:41 Cardiovascular: Yes: Regular Rate, Rhythm Respiratory: No: Decreased Breath Sounds, Accessory Muscle Use, Crackles, Rales, Rhonchi Capillary Refill: Normal (Less than 2 sec) Pulses: Normal Radial, Normal Dorsalis Pedis, Normal Posterior Tibialis Skin: Warm, Dry
--- NOTE | 2018-07-28 16:40 | PCM.SEPTIC ---
Sepsis Progress Note - Reassessment Type Date of Evaluation: 07/28/18 Time of Evaluation: 16:40 Reassessment Type: Non-invasive reassessment - Non Invasive Reassessment Were the most recent vital sign reviewed: Yes Vital Sign (Latest): Temp Pulse Resp BP Pulse Ox 98.6 F 106 H 18 128/63 98 07/28/18 12:33 07/28/18 15:41 07/28/18 15:41 07/28/18 15:41 07/28/18 15:41 Cardiovascular: Yes: Tachycardia Respiratory: Yes: Crackles Capillary Refill: Normal (Less than 2 sec) Skin: Normal Color
--- NOTE | 2018-07-28 17:43 | CARD ---
APPROVED REPORT Date of service: 07/28/2018 EKG Measurement Heart [id number] <Conclusion> Sinus rhythm with 1st degree AV block Indeterminate axis Right bundle branch block with STT abnormalities Abnormal ECG
[2018-07-28] MEDS: Cefepime 1gm in NS 100ml 1 GM/100 ML BAG IVPB SCH (22:49)
[2018-07-28] MEDS: Sodium Chloride 0.9% 1,000 ML IV SCH (22:49)
[2018-07-29] MEDS: Sodium Chloride 0.9% 1,000 ML IV SCH ×2 (05:30→09:26)
[2018-07-29 06:30] LABS: MEAN CELL VOLUME 90.4 fl (80.0-105.0); MEAN CORPUSCULAR HEMOGLOBIN 29.4 pg (25.0-35.0); MEAN CORPUSCULAR HGB CONC 32.5 g/dl (31.0-37.0); MEAN PLATELET VOLUME 9.3 fl (7.0-11.0); RBC 2.72 10^6/uL (3.5-6.1); WHITE BLOOD COUNT 10.3 10^3/uL (4.5-11.0)
--- NOTE | 2018-07-29 06:50 | CP.PCM.HP ---
History of Present Illness - History of Present Illness History of Present Illness: IM Resident H&P for Dr. Bae's service CC: Dark urine Patient is an 88 y/o Make with PMHx of metastatic prostate cancer s/p ADT and palliative radiation on Lupron, seizures, glaucoma, dementia, UTI w/ indwelling Holland (+ for E.coli, Klebsiella, and Enterococcus), recently admitted with UTI due to proteus mirabilis and klebsiella UTI) presented to the ED with dark urine. Patient was found to have UTI, with lactic acid of 2.1 thus sepsis code was called. Patient was admitted for management. Patient is poor historian, thus most of the history was obtain from patient's chart and son. As per patient's son the Holland catheter was draining dark urine, prompting him to brink patient to the ED. As per ED note, pt had generalized convulsions while in the ER, which resolved with a dose of ativan. This morning, patient admits to feeling cold, denies fever. Denies nausea, vomiting or diarrhea. No abdominal pain. PMHx: metastatic prostate cancer s/p ADT and palliative radiation on Lupron, seizures, glaucoma, dementia, UTI w/ indwelling holland (+ for E.coli, Klebsiella, Enterococcus, and proteus mirabilis) PSHx: b/l cataract surgery Allergies: NKA SocHx: Denies EtOH, drug or tobacco use. 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 he is not active and is wheelchair bound. Patient is a DNI/DNR. FamHx: non-contributory Home meds: As per chart Present on Admission - Present on Admission Any Indicators Present on Admission: Yes History of DVT/PE: No History of Uncontrolled Diabetes: No Urinary Catheter: Yes Decubitus Ulcer Present: No Review of Systems - Review of Systems All systems: reviewed and no additional remarkable complaints except Review of Systems: 10 point ROS reviewed, all negative except as per HPI. Past Patient History - Infectious Disease Hx of Infectious Diseases: None - Tetanus Immunizations Tetanus Immunization: Unknown - Past Medical History & Family History Past Medical History?: Yes - Past Social History Smoking Status: Former Smoker Alcohol: None Drugs: Denies Home Situation {Lives}: With Family - CARDIAC Hx Cardiac Disorders: Yes Hx Congestive Heart Failure: Yes Hx Pacemaker: No Hx Peripheral Edema: Yes (ble +1) - PULMONARY Hx Respiratory Disorders: Yes (H/O SMOKING CIGARETTES) Hx Pneumonia: Yes Other/Comment: EMPYEMA/SARCOIDOSIS, left lung sx pt unsure what kind of sx - NEUROLOGICAL Hx Seizures: Yes - HEENT Hx HEENT Problems: Yes Hx Cataracts: Yes (with bilateral sx) - RENAL Hx Chronic Kidney Disease: Yes (retention) Other/Comment: chronic holland-Prostate ca. - ENDOCRINE/METABOLIC Hx Endocrine Disorders: No - HEMATOLOGICAL/ONCOLOGICAL Hx Blood Disorders: Yes (sepsis) Hx Cancer: Yes (prostate) Other/Comment: lupron injections once a month - INTEGUMENTARY Hx Dermatological Problems: Yes Other/Comment: left mid back fading surgical scar and area of round indentation in skin left outer mid back, discolored toenails, r ft 4th toe nail falling off, r ft great toe red dry wound, 2nd toenail black, left foot dry toenails, left hip pink pealed skin rash, buttocks reddened, lle fading old bruises - MUSCULOSKELETAL/RHEUMATOLOGICAL Hx Falls: No - GASTROINTESTINAL Hx Gastrointestinal Disorders: No - GENITOURINARY/GYNECOLOGICAL Hx Prostate Problems: Yes - PSYCHIATRIC Hx Substance Use: No - SURGICAL HISTORY Hx Mastectomy: No Other/Comment: left lung sx - ANESTHESIA Hx Anesthesia: No Hx Anesthesia Reactions: No Meds Allergies/Adverse Reactions: Allergies Allergy/AdvReac Type Severity Reaction Status Date / Time No Known Allergies Allergy Verified 05/27/18 18:01 Physical Exam - Constitutional Appears: No Acute Distress, Confused, Chronically Ill - Head Exam Head Exam: ATRAUMATIC, NORMAL INSPECTION, NORMOCEPHALIC - Eye Exam Eye Exam: EOMI, Normal appearance, PERRL. absent: Scleral icterus Pupil Exam: NORMAL ACCOMODATION - ENT Exam ENT Exam: Mucous Membranes Moist - Neck Exam Neck exam: Positive for: Normal Inspection - Respiratory Exam Respiratory Exam: Clear to Auscultation Bilateral, NORMAL BREATHING PATTERN. absent: Rales, Rhonchi, Wheezes, Respiratory Distress, Stridor - Cardiovascular Exam Cardiovascular Exam: REGULAR RHYTHM, RRR, +S1, +S2. absent: Bradycardia, Tachycardia, Diastolic murmur, Gallop, JVD, Rubs, Systolic Murmur - GI/Abdominal Exam GI & Abdominal Exam: Normal Bowel Sounds, Soft. absent: Distended, Firm, Guarding, Rebound, Tenderness - Exam Additional comments: Holland catheter in place, draining dark urine. - Extremities Exam Extremities exam: Positive for: pedal edema (+1). Negative for: tenderness - Back Exam Back exam: NORMAL INSPECTION - Neurological Exam Neurological exam: Alert Additional comments: + baseline confusion. - Psychiatric Exam Psychiatric exam: Normal Affect, Normal Mood - Skin Skin Exam: Dry, Normal Color, Warm Results - Vital Signs Recent Vital Signs: Last Vital Signs Temp 98.6 F 07/29/18 06:00 Pulse 101 H 07/29/18 06:00 Resp 19 07/29/18 06:00 BP 143/75 07/29/18 06:00 Pulse Ox 98 07/29/18 06:00 - Labs Result Diagrams: 07/29/18 06:00 07/29/18 06:00 Labs: Laboratory Results - last 24 hr 07/28/18 07/28/18 07/28/18 11:56 12:00 12:00 WBC RBC Hgb Hct MCV MCH MCHC RDW Plt Count MPV Neut % (Auto) Lymph % (Auto) Grimes % (Auto) Eos % (Auto) Baso % (Auto) Lymph # (Auto) [place] # (Auto) Eos # (Auto) Baso # (Auto) Absolute Neuts (auto) PT INR APTT pO2 40 VBG pH 7.30 L VBG pCO2 44.0 VBG HCO3 21.6 VBG Total CO2 23.0 VBG O2 Sat (Calc) 75.9 H VBG Base Excess -4.8 L VBG Potassium 5.3 H Sodium 120.0 L* Chloride 87.0 L Glucose 103 Lactate 2.1 FiO2 21.0 Crit Value Called To Annette gonzales Crit Value Called By Ab Blood Gas Notified Time 1216 Potassium Carbon Dioxide Anion Gap BUN Creatinine Est GFR ( Amer) Est GFR (Non-Af Amer) POC Glucose (mg/dL) Random Glucose Calcium Magnesium Total Bilirubin AST ALT Alkaline Phosphatase Total Protein Albumin Globulin Albumin/Globulin Ratio TSH 3rd Generation Venous Blood Potassium 5.3 H Urine Color Light brown Urine Appearance Cloudy Urine pH 6.5 Ur Specific [place] 1.020 Urine Protein 100 H Urine Glucose (UA) Negative Urine Ketones Negative Urine Blood Large H Urine Nitrate Positive H Urine Bilirubin Negative Urine Urobilinogen 0.2 Ur Leukocyte Esterase Moderate H Urine RBC Tntc H Urine WBC Tntc H Ur Epithelial Cells None Urine Bacteria Large Blood Type A POSITIVE Antibody Screen Negative BBK History Checked Patient has bt 07/28/18 07/28/18 07/28/18 12:00 12:00 12:00 WBC 13.3 H D RBC 3.35 L Hgb 10.0 L D Hct 30.1 L MCV 89.9 D MCH 29.9 MCHC 33.2 RDW 14.7 H Plt Count 265 MPV 9.3 Neut % (Auto) 76.0 H Lymph % (Auto) 15.5 L [place]imes % (Auto) 8.2 H Eos % (Auto) 0.2 L Baso % (Auto) 0.1 Lymph # (Auto) 2.1 [place]imes # (Auto) 1.1 H Eos # (Auto) 0.0 Baso # (Auto) 0.01 Absolute Neuts (auto) 10.15 H PT 16.4 H INR 1.45 APTT 38.5 H pO2 VBG pH VBG pCO2 VBG HCO3 VBG Total CO2 VBG O2 Sat (Calc) VBG Base Excess VBG Potassium Sodium 124 L Chloride 86 L Glucose Lactate FiO2 Crit Value Called To Crit Value Called By Blood Gas Notified Time Potassium 5.8 H* D Carbon Dioxide 21 Anion Gap 23 H BUN 40 H Creatinine 1.7 H Est GFR ( Amer) 46 Est GFR (Non-Af Amer) 38 POC Glucose (mg/dL) Random Glucose 101 Calcium 9.1 Magnesium 1.9 Total Bilirubin 0.6 AST 35 ALT 11 Alkaline Phosphatase 143 H D Total Protein 7.1 Albumin 3.4 Globulin 3.7 Albumin/Globulin Ratio 0.9 L TSH 3rd Generation Venous Blood Potassium Urine Color Urine Appearance Urine pH Ur Specific [place] Urine Protein Urine Glucose (UA) Urine Ketones Urine Blood Urine Nitrate Urine Bilirubin Urine Urobilinogen Ur Leukocyte Esterase Urine RBC Urine WBC Ur Epithelial Cells Urine Bacteria Blood Type Antibody Screen BBK History Checked 07/28/18 07/28/18 07/28/18 12:00 13:49 15:10 WBC RBC Hgb Hct MCV MCH MCHC RDW Plt Count MPV Neut % (Auto) Lymph % (Auto) [place] % (Auto) Eos % (Auto) Baso % (Auto) Lymph # (Auto) [place] # (Auto) Eos # (Auto) Baso # (Auto) Absolute Neuts (auto) PT INR APTT pO2 141 H VBG pH 7.26 L VBG pCO2 44.0 VBG HCO3 19.7 L VBG Total CO2 21.1 L VBG O2 Sat (Calc) 100.3 H VBG Base Excess -7.2 L VBG Potassium 4.8 Sodium 122.0 L Chloride 93.0 L Glucose 132 H Lactate 1.6 FiO2 21.0 Crit Value Called To Crit Value Called By Blood Gas Notified Time Potassium Carbon Dioxide Anion Gap BUN Creatinine Est GFR ( Amer) Est GFR (Non-Af Amer) POC Glucose (mg/dL) 104 Random Glucose Calcium Magnesium Total Bilirubin AST ALT Alkaline Phosphatase Total Protein Albumin Globulin Albumin/Globulin Ratio TSH 3rd Generation 1.61 Venous Blood Potassium 4.8 Urine Color Urine Appearance Urine pH Ur Specific [place] Urine Protein Urine Glucose (UA) Urine Ketones Urine Blood Urine Nitrate Urine Bilirubin Urine Urobilinogen Ur Leukocyte Esterase Urine RBC Urine WBC Ur Epithelial Cells Urine Bacteria Blood Type Antibody Screen BBK History Checked 07/28/18 15:50 WBC RBC Hgb Hct MCV MCH MCHC RDW Plt Count MPV Neut % (Auto) Lymph % (Auto) [place] % (Auto) Eos % (Auto) Baso % (Auto) Lymph # (Auto) [place] # (Auto) Eos # (Auto) Baso # (Auto) Absolute Neuts (auto) PT INR APTT pO2 VBG pH VBG pCO2 VBG HCO3 VBG Total CO2 VBG O2 Sat (Calc) VBG Base Excess VBG Potassium Sodium Chloride Glucose Lactate FiO2 Crit Value Called To Crit Value Called By Blood Gas Notified Time Potassium 5.1 H Carbon Dioxide Anion Gap BUN Creatinine Est GFR ( Amer) Est GFR (Non-Af Amer) POC Glucose (mg/dL) Random Glucose Calcium Magnesium Total Bilirubin AST ALT Alkaline Phosphatase Total Protein Albumin Globulin Albumin/Globulin Ratio TSH 3rd Generation Venous Blood Potassium Urine Color Urine Appearance Urine pH Ur Specific [place] Urine Protein Urine Glucose (UA) Urine Ketones Urine Blood Urine Nitrate Urine Bilirubin Urine Urobilinogen Ur Leukocyte Esterase Urine RBC Urine WBC Ur Epithelial Cells Urine Bacteria Blood Type Antibody Screen BBK History Checked Assessment & Plan - Assessment and Plan (Free Text) Assessment: 1) Hematuria from traumatic Holland and cancer 2) Sepsis due to Recurrent catheter associated UTI 3) Right hydrouteronephrosis 4) Hyponatremia 5) Hyperkalemia- likely due to pre-renal shahnaz 6) SHAHNAZ- likely post renal with some pre-renal component 7) Acute on chronic anemia likely due to hematuria 8) Chronic abdominal pain likely due to metastasis 9) Constipation likely due to opioid 10) Metastatic prostate cancer metastatic to the bone s/p ADT and palliative radiation on Lupron, 11) H/o seizures, 12) glaucoma 13) Dyslipidemia 14) Transient hypoglycemia Plan: Patient is admitted with sepsis likely due to UTI in the setting of metastatic prostate cancer and chronic indwelling Holland catheter. Ua with large blood, positive nitrate, moderate leuk esterase and too numerous to count wbc, with large bacteria. Patient was aferbrile, was tachy and had leukocytosis. Urine and blood cultures were sent. ID is consulted, patient is started on cefepime. For breakthrough seizures likely due to sepsis and electrolyte imbalance, will obtain Tegretol level and continue with Tegretol 200 mg tid. Neurology is consulted. The SHAHNAZ is likely post renal with pre-renal component. Creat and sodium improved with NS and replacement of the Holland catheter. TSH was normal. Hyperkalemia also improved. Patient has normocytic anemia likely from recurrent hematuria, will obtain iron panel and transfuse iron based on the result. Continue with miralax prn for constipation. For transient hypoglycemia likely from insulin and poor oral intake, the glucose improved with orange juice. On lipid for hld, and protonix for gerd. Has fentanyl patch and percocet prn for chronic cancer r elated pain. External compressive device for DVT prophylaxis. Patient seen, examined and case discussed with Dr. Thomas. - Date & Time Date: 07/29/18 Time: 10:00
[2018-07-29 07:24] LABS: ALB/GLOB RATIO 0.9 (1.1-1.8); ALBUMIN 3.1 g/dL (3.0-4.8); ALT/SGPT 17 U/L (7-56); AST/SGOT 41 U/L (17-59); BLOOD UREA NITROGEN 34 mg/dL (7-21); CALCIUM 8.6 mg/dL (8.4-10.5); GFR NON-AFRICAN AMERICAN > 60
[2018-07-29] MEDS: Cefepime 1gm in NS 100ml 1 GM/100 ML BAG IVPB SCH ×2 (09:37→22:25)
[2018-07-29] MEDS ORDERED: POLYETHYLENE GLYCOL 3350 17 GM/Dose PACKET PO PRN (10:33)
[2018-07-29] MEDS ORDERED: Oxycodone/Acetaminophen 5/325 mg Tab PO PRN (10:33)
[2018-07-29 10:45] LABS: IRON 20 ug/dL (45-180)
--- NOTE | 2018-07-29 10:53 | CP.PCM.CON ---
<You Wise - Last Filed: 07/29/18 10:49> History of Present Illness - History of Present Illness History of Present Illness: You Wise D.O. PGY-3, Internal Medicine Resident, Infectious Disease Consultation Note 88 year old male with a PMH of metastatic prostate cancer, seizures, glaucoma, dementia, chronic indwelling holland with previous multiple UTIs with E.coli, Klebsiella, and Enterococcus, who presents due to concern for darkening urine and decreased output from holland while at home per son. Infectious disease consultation was requested. Patient was seen and examined at bedside in ER. He appears at about his baseline. He denies any acute complaints at this time. Most of the history was obtained from the chart including the ER visits for this admission. Patient does not recall having any issues with his [place]. Patient states that he has not had any fevers, chills, nausea, vomiting, diarrhea, constipation, headache, shortness of breath, chest pain or any other acute complaints. Feels "fine" at this time. Review of Systems - Review of Systems All systems: reviewed and no additional remarkable complaints except (as per HPI) Past Patient History - Infectious Disease Hx of Infectious Diseases: None - Tetanus Immunizations Tetanus Immunization: Unknown - Past Medical History & Family History Past Medical History?: Yes - Past Social History Smoking Status: Former Smoker - CARDIAC Hx Cardiac Disorders: Yes Hx Congestive Heart Failure: Yes Hx Pacemaker: No Hx Peripheral Edema: Yes (ble +1) - PULMONARY Hx Respiratory Disorders: Yes (H/O SMOKING CIGARETTES) Hx Pneumonia: Yes Other/Comment: EMPYEMA/SARCOIDOSIS, left lung sx pt unsure what kind of sx - NEUROLOGICAL Hx Seizures: Yes - HEENT Hx HEENT Problems: Yes Hx Cataracts: Yes (with bilateral sx) - RENAL Hx Chronic Kidney Disease: Yes (retention) Other/Comment: chronic holland-Prostate ca. - ENDOCRINE/METABOLIC Hx Endocrine Disorders: No - HEMATOLOGICAL/ONCOLOGICAL Hx Blood Disorders: Yes (sepsis) Hx Cancer: Yes (prostate) Other/Comment: lupron injections once a month - INTEGUMENTARY Hx Dermatological Problems: Yes Other/Comment: left mid back fading surgical scar and area of round indentation in skin left outer mid back, discolored toenails, r ft 4th toe nail falling off, r ft great toe red dry wound, 2nd toenail black, left foot dry toenails, left hip pink pealed skin rash, buttocks reddened, lle fading old bruises - MUSCULOSKELETAL/RHEUMATOLOGICAL Hx Falls: No - GASTROINTESTINAL Hx Gastrointestinal Disorders: No - GENITOURINARY/GYNECOLOGICAL Hx Prostate Problems: Yes - PSYCHIATRIC Hx Substance Use: No - SURGICAL HISTORY Hx Mastectomy: No Other/Comment: left lung sx - ANESTHESIA Hx Anesthesia: No Hx Anesthesia Reactions: No Meds Allergies/Adverse Reactions: Allergies Allergy/AdvReac Type Severity Reaction Status Date / Time No Known Allergies Allergy Verified 05/27/18 18:01 - Medications Medications: Current Medications Carbamazepine (Tegretol) 200 mg PO TID [facility]; Protocol Last Admin: 07/29/18 09:36 Dose: 200 mg Fentanyl (Duragesic) 1 patch TD Q72 [facility] Gemfibrozil (Lopid) 600 mg PO BID [facility] Sodium Chloride (Sodium Chloride 0.9%) 1,000 mls @ 100 mls/hr IV .Q10H [facility] Last Admin: 07/29/18 09:26 Dose: 100 mls/hr Cefepime HCl (Maxipime 1gm) 1 gm in 100 mls @ 100 mls/hr IVPB Q12 [facility]; Protocol Stop: 08/06/18 22:01 Last Admin: 07/29/18 09:37 Dose: 100 mls/hr Oxycodone/Acetaminophen (Percocet 5/325 Mg Tab) 1 tab PO Q4H PRN PRN Reason: Pain, moderate (4-7) Stop: 08/01/18 10:34 Pantoprazole Sodium (Protonix Ec Tab) 40 mg PO 0600 [facility] Polyethylene Glycol (Miralax) 17 gm PO DAILY PRN PRN Reason: Constipation Physical Exam - Constitutional Appears: No Acute Distress, Chronically Ill - Head Exam Head Exam: ATRAUMATIC, NORMOCEPHALIC - Eye Exam Eye Exam: EOMI. absent: Scleral icterus - ENT Exam ENT Exam: Normal Exam - Neck Exam Neck exam: Positive for: Normal Inspection - Respiratory Exam Respiratory Exam: absent: Rhonchi - Cardiovascular Exam Cardiovascular Exam: RRR, +S1, +S2 - GI/Abdominal Exam GI & Abdominal Exam: Soft. absent: Distended - Exam Additional comments: holland in place with darker yellow urine and some dark sediment - Extremities Exam Extremities exam: Negative for: tenderness - Neurological Exam Neurological exam: Alert - Skin Skin Exam: Dry, Warm Results - Vital Signs Recent Vital Signs: Last Vital Signs Temp 98.6 F 07/29/18 06:00 Pulse 101 H 07/29/18 06:00 Resp 19 07/29/18 06:00 BP 143/75 07/29/18 06:00 Pulse Ox 98 07/29/18 06:00 - Labs Result Diagrams: 07/29/18 06:00 07/29/18 06:00 Labs: Laboratory Results - last 24 hr 07/28/18 07/28/18 07/28/18 11:56 12:00 12:00 WBC RBC Hgb Hct MCV MCH MCHC RDW Plt Count MPV Neut % (Auto) Lymph % (Auto) Carbon % (Auto) Eos % (Auto) Baso % (Auto) Lymph # (Auto) Carbon # (Auto) Eos # (Auto) Baso # (Auto) Absolute Neuts (auto) PT INR APTT pO2 40 VBG pH 7.30 L VBG pCO2 44.0 VBG HCO3 21.6 VBG Total CO2 23.0 VBG O2 Sat (Calc) 75.9 H VBG Base Excess -4.8 L VBG Potassium 5.3 H Sodium 120.0 L* Chloride 87.0 L Glucose 103 Lactate 2.1 FiO2 21.0 Crit Value Called To Annette gonzales Crit Value Called By Ab Blood Gas Notified Time 1216 Potassium Carbon Dioxide Anion Gap BUN Creatinine Est GFR ( Amer) Est GFR (Non-Af Amer) POC Glucose (mg/dL) Random Glucose Calcium Magnesium Iron Total Bilirubin AST ALT Alkaline Phosphatase Total Protein Albumin Globulin Albumin/Globulin Ratio TSH 3rd Generation Venous Blood Potassium 5.3 H Urine Color Light brown Urine Appearance Cloudy Urine pH 6.5 Ur Specific Gile 1.020 Urine Protein 100 H Urine Glucose (UA) Negative Urine Ketones Negative Urine Blood Large H Urine Nitrate Positive H Urine Bilirubin Negative Urine Urobilinogen 0.2 Ur Leukocyte Esterase Moderate H Urine RBC Tntc H Urine WBC Tntc H Ur Epithelial Cells None Urine Bacteria Large Blood Type A POSITIVE Antibody Screen Negative BBK History Checked Patient has bt 07/28/18 07/28/18 07/28/18 12:00 12:00 12:00 WBC 13.3 H D RBC 3.35 L Hgb 10.0 L D Hct 30.1 L MCV 89.9 D MCH 29.9 MCHC 33.2 RDW 14.7 H Plt Count 265 MPV 9.3 Neut % (Auto) 76.0 H Lymph % (Auto) 15.5 L Carbon % (Auto) 8.2 H Eos % (Auto) 0.2 L Baso % (Auto) 0.1 Lymph # (Auto) 2.1 Carbon # (Auto) 1.1 H Eos # (Auto) 0.0 Baso # (Auto) 0.01 Absolute Neuts (auto) 10.15 H PT 16.4 H INR 1.45 APTT 38.5 H pO2 VBG pH VBG pCO2 VBG HCO3 VBG Total CO2 VBG O2 Sat (Calc) VBG Base Excess VBG Potassium Sodium 124 L Chloride 86 L Glucose Lactate FiO2 Crit Value Called To Crit Value Called By Blood Gas Notified Time Potassium 5.8 H* D Carbon Dioxide 21 Anion Gap 23 H BUN 40 H Creatinine 1.7 H Est GFR ( Amer) 46 Est GFR (Non-Af Amer) 38 POC Glucose (mg/dL) Random Glucose 101 Calcium 9.1 Magnesium 1.9 Iron Total Bilirubin 0.6 AST 35 ALT 11 Alkaline Phosphatase 143 H D Total Protein 7.1 Albumin 3.4 Globulin 3.7 Albumin/Globulin Ratio 0.9 L TSH 3rd Generation Venous Blood Potassium Urine Color Urine Appearance Urine pH Ur Specific Gile Urine Protein Urine Glucose (UA) Urine Ketones Urine Blood Urine Nitrate Urine Bilirubin Urine Urobilinogen Ur Leukocyte Esterase Urine RBC Urine WBC Ur Epithelial Cells Urine Bacteria Blood Type Antibody Screen BBK History Checked 07/28/18 07/28/18 07/28/18 12:00 13:49 15:10 WBC RBC Hgb Hct MCV MCH MCHC RDW Plt Count MPV Neut % (Auto) Lymph % (Auto) Carbon % (Auto) Eos % (Auto) Baso % (Auto) Lymph # (Auto) Carbon # (Auto) Eos # (Auto) Baso # (Auto) Absolute Neuts (auto) PT INR APTT pO2 141 H VBG pH 7.26 L VBG pCO2 44.0 VBG HCO3 19.7 L VBG Total CO2 21.1 L VBG O2 Sat (Calc) 100.3 H VBG Base Excess -7.2 L VBG Potassium 4.8 Sodium 122.0 L Chloride 93.0 L Glucose 132 H Lactate 1.6 FiO2 21.0 Crit Value Called To Crit Value Called By Blood Gas Notified Time Potassium Carbon Dioxide Anion Gap BUN Creatinine Est GFR ( Amer) Est GFR (Non-Af Amer) POC Glucose (mg/dL) 104 Random Glucose Calcium Magnesium Iron Total Bilirubin AST ALT Alkaline Phosphatase Total Protein Albumin Globulin Albumin/Globulin Ratio TSH 3rd Generation 1.61 Venous Blood Potassium 4.8 Urine Color Urine Appearance Urine pH Ur Specific Gile Urine Protein Urine Glucose (UA) Urine Ketones Urine Blood Urine Nitrate Urine Bilirubin Urine Urobilinogen Ur Leukocyte Esterase Urine RBC Urine WBC Ur Epithelial Cells Urine Bacteria Blood Type Antibody Screen BBK History Checked 07/28/18 07/29/18 07/29/18 15:50 06:00 06:00 WBC 10.3 D RBC 2.72 L Hgb 8.0 L D Hct 24.6 L MCV 90.4 MCH 29.4 MCHC 32.5 RDW 15.0 H Plt Count 210 MPV 9.3 Neut % (Auto) Lymph % (Auto) Carbon % (Auto) Eos % (Auto) Baso % (Auto) Lymph # (Auto) Carbon # (Auto) Eos # (Auto) Baso # (Auto) Absolute Neuts (auto) PT INR APTT pO2 VBG pH VBG pCO2 VBG HCO3 VBG Total CO2 VBG O2 Sat (Calc) VBG Base Excess VBG Potassium Sodium 129 L Chloride 98 Glucose Lactate FiO2 Crit Value Called To Crit Value Called By Blood Gas Notified Time Potassium 5.1 H 4.9 Carbon Dioxide 23 Anion Gap 14 BUN 34 H Creatinine 1.1 Est GFR ( Amer) > 60 Est GFR (Non-Af Amer) > 60 POC Glucose (mg/dL) Random Glucose 62 L Calcium 8.6 Magnesium Iron Total Bilirubin 0.4 AST 41 ALT 17 Alkaline Phosphatase 108 Total Protein 6.6 Albumin 3.1 Globulin 3.5 Albumin/Globulin Ratio 0.9 L TSH 3rd Generation Venous Blood Potassium Urine Color Urine Appearance Urine pH Ur Specific Gile Urine Protein Urine Glucose (UA) Urine Ketones Urine Blood Urine Nitrate Urine Bilirubin Urine Urobilinogen Ur Leukocyte Esterase Urine RBC Urine WBC Ur Epithelial Cells Urine Bacteria Blood Type Antibody Screen BBK History Checked 07/29/18 10:20 WBC RBC Hgb Hct MCV MCH MCHC RDW Plt Count MPV Neut % (Auto) Lymph % (Auto) Carbon % (Auto) Eos % (Auto) Baso % (Auto) Lymph # (Auto) Carbon # (Auto) Eos # (Auto) Baso # (Auto) Absolute Neuts (auto) PT INR APTT pO2 VBG pH VBG pCO2 VBG HCO3 VBG Total CO2 VBG O2 Sat (Calc) VBG Base Excess VBG Potassium Sodium Chloride Glucose Lactate FiO2 Crit Value Called To Crit Value Called By Blood Gas Notified Time Potassium Carbon Dioxide Anion Gap BUN Creatinine Est GFR ( Amer) Est GFR (Non-Af Amer) POC Glucose (mg/dL) Random Glucose Calcium Magnesium Iron 20 L Total Bilirubin AST ALT Alkaline Phosphatase Total Protein Albumin Globulin Albumin/Globulin Ratio TSH 3rd Generation Venous Blood Potassium Urine Color Urine Appearance Urine pH Ur Specific Gile Urine Protein Urine Glucose (UA) Urine Ketones Urine Blood Urine Nitrate Urine Bilirubin Urine Urobilinogen Ur Leukocyte Esterase Urine RBC Urine WBC Ur Epithelial Cells Urine Bacteria Blood Type Antibody Screen BBK History Checked Assessment & Plan - Assessment and Plan (Free Text) Assessment: 88 year old male with a PMH of metastatic prostate cancer, seizures, glaucoma, dementia, chronic indwelling holland with previous multiple UTIs with E.coli, Klebsiella, and Enterococcus, who presents due to concern for darkening urine and decreased output from holland while at home per son. Infectious disease consultation was requested. Plan: Sepsis with tachycardia and leukocytosis likely from urinary source Metastatic prostate cancer Seizures Glaucoma Dementia Chronic indwelling [place] Afebrile at this time Leukocytosis has resolved On previous visit the urine grew Klebsiella oxytoca Repeat urinalysis appears almost exactly the same as last admission Empirically started on cefepime CT abd/pelvis appears to show metastatic disease Urine cultures drawn Blood cultures drawn We will monitor with you Patient was seen and examined and case to be discussed with attending physician Thank you for the pleasure participating in the care of this interesting patient - Date & Time Date: 07/29/18 Time: 09:00 <Evangelist García - Last Filed: 07/29/18 11:58> Meds - Medications Medications: Current Medications Carbamazepine (Tegretol) 200 mg PO TID [facility]; Protocol Last Admin: 07/29/18 09:36 Dose: 200 mg Fentanyl (Duragesic) 1 patch TD Q72 [facility] Gemfibrozil (Lopid) 600 mg PO BID [facility] Sodium Chloride (Sodium Chloride 0.9%) 1,000 mls @ 100 mls/hr IV .Q10H [facility] Last Admin: 07/29/18 09:26 Dose: 100 mls/hr Cefepime HCl (Maxipime 1gm) 1 gm in 100 mls @ 100 mls/hr IVPB Q12 [facility]; Protocol Stop: 08/06/18 22:01 Last Admin: 07/29/18 09:37 Dose: 100 mls/hr Oxycodone/Acetaminophen (Percocet 5/325 Mg Tab) 1 tab PO Q4H PRN PRN Reason: Pain, moderate (4-7) Stop: 08/01/18 10:34 Pantoprazole Sodium (Protonix Ec Tab) 40 mg PO 0600 [facility] Polyethylene Glycol (Miralax) 17 gm PO DAILY PRN PRN Reason: Constipation Results - Vital Signs Recent Vital Signs: Last Vital Signs Temp 98.6 F 07/29/18 06:00 Pulse 101 H 07/29/18 06:00 Resp 19 07/29/18 06:00 BP 143/75 07/29/18 06:00 Pulse Ox 98 07/29/18 06:00 - Labs Result Diagrams: 07/29/18 06:00 07/29/18 06:00 Labs: Laboratory Results - last 24 hr 07/28/18 07/28/18 07/28/18 11:56 12:00 12:00 WBC RBC Hgb Hct MCV MCH MCHC RDW Plt Count MPV Neut % (Auto) Lymph % (Auto) Carbon % (Auto) Eos % (Auto) Baso % (Auto) Lymph # (Auto) Carbon # (Auto) Eos # (Auto) Baso # (Auto) Absolute Neuts (auto) PT INR APTT pO2 40 VBG pH 7.30 L VBG pCO2 44.0 VBG HCO3 21.6 VBG Total CO2 23.0 VBG O2 Sat (Calc) 75.9 H VBG Base Excess -4.8 L VBG Potassium 5.3 H Sodium 120.0 L* Chloride 87.0 L Glucose 103 Lactate 2.1 FiO2 21.0 Crit Value Called To Annette gonzales Crit Value Called By Ab Blood Gas Notified Time 1216 Potassium Carbon Dioxide Anion Gap BUN Creatinine Est GFR ( Amer) Est GFR (Non-Af Amer) POC Glucose (mg/dL) Random Glucose Calcium Magnesium Iron TIBC % Saturation Total Bilirubin AST ALT Alkaline Phosphatase Total Protein Albumin Globulin Albumin/Globulin Ratio TSH 3rd Generation Venous Blood Potassium 5.3 H Urine Color Light brown Urine Appearance Cloudy Urine pH 6.5 Ur Specific Gile 1.020 Urine Protein 100 H Urine Glucose (UA) Negative Urine Ketones Negative Urine Blood Large H Urine Nitrate Positive H Urine Bilirubin Negative Urine Urobilinogen 0.2 Ur Leukocyte Esterase Moderate H Urine RBC Tntc H Urine WBC Tntc H Ur Epithelial Cells None Urine Bacteria Large Carbamazepine Blood Type A POSITIVE Antibody Screen Negative BBK History Checked Patient has bt 07/28/18 07/28/18 07/28/18 12:00 12:00 12:00 WBC 13.3 H D RBC 3.35 L Hgb 10.0 L D Hct 30.1 L MCV 89.9 D MCH 29.9 MCHC 33.2 RDW 14.7 H Plt Count 265 MPV 9.3 Neut % (Auto) 76.0 H Lymph % (Auto) 15.5 L Carbon % (Auto) 8.2 H Eos % (Auto) 0.2 L Baso % (Auto) 0.1 Lymph # (Auto) 2.1 Carbon # (Auto) 1.1 H Eos # (Auto) 0.0 Baso # (Auto) 0.01 Absolute Neuts (auto) 10.15 H PT 16.4 H INR 1.45 APTT 38.5 H pO2 VBG pH VBG pCO2 VBG HCO3 VBG Total CO2 VBG O2 Sat (Calc) VBG Base Excess VBG Potassium Sodium 124 L Chloride 86 L Glucose Lactate FiO2 Crit Value Called To Crit Value Called By Blood Gas Notified Time Potassium 5.8 H* D Carbon Dioxide 21 Anion Gap 23 H BUN 40 H Creatinine 1.7 H Est GFR ( Amer) 46 Est GFR (Non-Af Amer) 38 POC Glucose (mg/dL) Random Glucose 101 Calcium 9.1 Magnesium 1.9 Iron TIBC % Saturation Total Bilirubin 0.6 AST 35 ALT 11 Alkaline Phosphatase 143 H D Total Protein 7.1 Albumin 3.4 Globulin 3.7 Albumin/Globulin Ratio 0.9 L TSH 3rd Generation Venous Blood Potassium Urine Color Urine Appearance Urine pH Ur Specific Gile Urine Protein Urine Glucose (UA) Urine Ketones Urine Blood Urine Nitrate Urine Bilirubin Urine Urobilinogen Ur Leukocyte Esterase Urine RBC Urine WBC Ur Epithelial Cells Urine Bacteria Carbamazepine Blood Type Antibody Screen BBK History Checked 07/28/18 07/28/18 07/28/18 12:00 13:49 15:10 WBC RBC Hgb Hct MCV MCH MCHC RDW Plt Count MPV Neut % (Auto) Lymph % (Auto) Carbon % (Auto) Eos % (Auto) Baso % (Auto) Lymph # (Auto) Carbon # (Auto) Eos # (Auto) Baso # (Auto) Absolute Neuts (auto) PT INR APTT pO2 141 H VBG pH 7.26 L VBG pCO2 44.0 VBG HCO3 19.7 L VBG Total CO2 21.1 L VBG O2 Sat (Calc) 100.3 H VBG Base Excess -7.2 L VBG Potassium 4.8 Sodium 122.0 L Chloride 93.0 L Glucose 132 H Lactate 1.6 FiO2 21.0 Crit Value Called To Crit Value Called By Blood Gas Notified Time Potassium Carbon Dioxide Anion Gap BUN Creatinine Est GFR ( Amer) Est GFR (Non-Af Amer) POC Glucose (mg/dL) 104 Random Glucose Calcium Magnesium Iron TIBC % Saturation Total Bilirubin AST ALT Alkaline Phosphatase Total Protein Albumin Globulin Albumin/Globulin Ratio TSH 3rd Generation 1.61 Venous Blood Potassium 4.8 Urine Color Urine Appearance Urine pH Ur Specific Gile Urine Protein Urine Glucose (UA) Urine Ketones Urine Blood Urine Nitrate Urine Bilirubin Urine Urobilinogen Ur Leukocyte Esterase Urine RBC Urine WBC Ur Epithelial Cells Urine Bacteria Carbamazepine Blood Type Antibody Screen BBK History Checked 07/28/18 07/29/18 07/29/18 15:50 06:00 06:00 WBC 10.3 D RBC 2.72 L Hgb 8.0 L D Hct 24.6 L MCV 90.4 MCH 29.4 MCHC 32.5 RDW 15.0 H Plt Count 210 MPV 9.3 Neut % (Auto) Lymph % (Auto) Carbon % (Auto) Eos % (Auto) Baso % (Auto) Lymph # (Auto) Carbon # (Auto) Eos # (Auto) Baso # (Auto) Absolute Neuts (auto) PT INR APTT pO2 VBG pH VBG pCO2 VBG HCO3 VBG Total CO2 VBG O2 Sat (Calc) VBG Base Excess VBG Potassium Sodium 129 L Chloride 98 Glucose Lactate FiO2 Crit Value Called To Crit Value Called By Blood Gas Notified Time Potassium 5.1 H 4.9 Carbon Dioxide 23 Anion Gap 14 BUN 34 H Creatinine 1.1 Est GFR ( Amer) > 60 Est GFR (Non-Af Amer) > 60 POC Glucose (mg/dL) Random Glucose 62 L Calcium 8.6 Magnesium Iron TIBC % Saturation Total Bilirubin 0.4 AST 41 ALT 17 Alkaline Phosphatase 108 Total Protein 6.6 Albumin 3.1 Globulin 3.5 Albumin/Globulin Ratio 0.9 L TSH 3rd Generation Venous Blood Potassium Urine Color Urine Appearance Urine pH Ur Specific Gile Urine Protein Urine Glucose (UA) Urine Ketones Urine Blood Urine Nitrate Urine Bilirubin Urine Urobilinogen Ur Leukocyte Esterase Urine RBC Urine WBC Ur Epithelial Cells Urine Bacteria Carbamazepine Blood Type Antibody Screen BBK History Checked 07/29/18 07/29/18 10:20 10:33 WBC RBC Hgb Hct MCV MCH MCHC RDW Plt Count MPV Neut % (Auto) Lymph % (Auto) Carbon % (Auto) Eos % (Auto) Baso % (Auto) Lymph # (Auto) Carbon # (Auto) Eos # (Auto) Baso # (Auto) Absolute Neuts (auto) PT INR APTT pO2 VBG pH VBG pCO2 VBG HCO3 VBG Total CO2 VBG O2 Sat (Calc) VBG Base Excess VBG Potassium Sodium Chloride Glucose Lactate FiO2 Crit Value Called To Crit Value Called By Blood Gas Notified Time Potassium Carbon Dioxide Anion Gap BUN Creatinine Est GFR ( Amer) Est GFR (Non-Af Amer) POC Glucose (mg/dL) Random Glucose Calcium Magnesium Iron 20 L TIBC 205 L % Saturation 10 L Total Bilirubin AST ALT Alkaline Phosphatase Total Protein Albumin Globulin Albumin/Globulin Ratio TSH 3rd Generation Venous Blood Potassium Urine Color Urine Appearance Urine pH Ur Specific Gile Urine Protein Urine Glucose (UA) Urine Ketones Urine Blood Urine Nitrate Urine Bilirubin Urine Urobilinogen Ur Leukocyte Esterase Urine RBC Urine WBC Ur Epithelial Cells Urine Bacteria Carbamazepine 3 L Blood Type Antibody Screen BBK History Checked Attending/Attestation - Attestation I have personally seen and examined this patient.: Yes I have fully participated in the care of the patient.: Yes I have reviewed all pertinent clinical information: Yes
[2018-07-29 10:54] LABS: % IRON SATURATION 10 % (20-55); TOTAL IRON BINDING CAPACITY 205 ug/dL (261-462)
--- NOTE | 2018-07-29 15:19 | CON ---
DATE: 07/29/2018 NEUROLOGY CONSULTATION CHIEF COMPLAINT: Seizure breakthrough. HISTORY OF PRESENT ILLNESS: History is obtained from the medical records. This is a 88-year-old man with past medical history of metastatic prostate cancer status post ADT and palliative radiation on Lupron, seizure disorder since 1989' on Tegretol 200 mg p.o. three times a day. He was stable, glaucoma, cognitive impairment, UTI with indwelling Bray catheter, which is positive for E. coli, Klebsiella, and Enterococcus in the past, recently admitted with UTI due to Proteus mirabilis and Klebsiella with UTI, presented to ED with dark urine found to have UTI with lactic acid of 2.1, so was called. The patient is reported to be poor historian therefore history was obtained from . He has generalized convulsion in the ER which resolved with a dose of Ativan. It is likely had to breakthrough seizures secondary to urinary tract infection, which can definitely be a cause. He is on antibiotics for underlying UTI and he is on Tegretol 200 mg p.o. three times a day. We will recommend also to avoid opiates for seizure threshold. PAST MEDICAL HISTORY: As above. SOCIAL HISTORY: No illicit drug use, smoking or EtOH abuse at this time. FAMILY HISTORY: Noncontributory. He is a wheelchair bound. MEDICATIONS: Home medications were reviewed by nurse's reconciliation sheet. REVIEW OF SYSTEMS: A 14-point review of systems is negative except per the HPI. LABORATORY DATA: Sodium 129, potassium 4.9, chloride of 98, carbon dioxide of 23, BUN of 34, creatinine 1.1, and random glucose of 62 which is low. He has iron deficiency anemia as well. PHYSICAL EXAMINATION: GENERAL: The patient is lying in bed, no acute distress. VITAL SIGNS: Temperature 100.2, pulse rate of 80, blood pressure 116/68, respiratory rate 19, and oxygen saturation 98% on nasal cannula. HEENT: Atraumatic and normocephalic. PERRLA. Extraocular muscles intact. NECK: Supple. No JVD. No adenopathy noted. LUNGS: Clear to auscultation. No adventitious sounds. HEART: S1 and S2. Normal rate and rhythm. No murmurs, rubs, or gallops. ABDOMEN: Soft, nontender, and nondistended. Bowel sounds present. EXTREMITIES: No clubbing. No cyanosis. Peripheral pulses are 2+ felt bilaterally. NEUROLOGIC: The patient is alert and oriented to person and place, not much to month and year. Recall after 5 minutes 0/3. Poor attention span. Slow thought process. Cranial nerves II through XII are intact. Speech is hypophonic. No aphasia noted. Motor exam; slight increased tone throughout the extremities. Moves all extremities equally except for lower extremities are very cachectic and muscular wasting in both upper and lower extremities. Sensory exam; decreased light touch to pinprick up to the calves bilaterally. Decreased vibration of the toes and knees. DTRs are 2+ and 1 at both knees and ankles. Toes are downgoing bilaterally. Coordination and gait deferred for now. IMPRESSION: Breakthrough seizures secondary to underlying urinary tract infection and the patient has a long history of seizures with underlying hyponatremia and hyperkaliemia as well as episode of hypoglycemia where glucose of 62 which is low, therefore it is likely also a toxic metabolic encephalopathy superimposed underlying breakthrough seizure, superimposed underlying chronic urinary tract infection and underlying . RECOMMENDATIONS: At this time; 1. Start broad spectrum antibiotics and on cefepime for his underlying UTI. 2. Continue to monitor electrolytes and correct accordingly. 3. Tegretol level. 4. Continue Tegretol 200 mg p.o. three times a day for underlying seizure prophylaxis and current present medical management. Thank you for this new consult. Osmin Solano MD
--- NOTE | 2018-07-29 17:33 | CON ---
DATE: 07/29/2018 HISTORY OF PRESENT ILLNESS: This is an 88-year-old male with past medical history of metastatic disease, prostate cancer, seizure, glaucoma, dementia, presents with darkening of the urine. Very poor historian, called to evaluate on possible seizure. PHYSICAL EXAMINATION HEENT: Normocephalic, atraumatic. NECK: Supple. NEUROLOGIC: Awake and oriented to self. Cranial nerves II through XII were tested. Pupils equal and reactive to light. EOM intact. Visual field full. No facial asymmetry. Tongue midline. MOTOR EXAMINATION: Moves all extremities equally. Tone normal. Deep tendon reflexes 1+. Both plantars are downgoing. Sensory appears intact. CAT scan of the head was done which was reported negative for bleed or stroke. IMPRESSION: An 88-year-old male with past medical history of prostate cancer, therapy on Lupron, possible neural seizure, dementia, came with experiencing darkening of his urine. CAT scan of the head was done which was reported negative. The patient was witnessed to have generalized convulsion at the bedside and Ativan was given. No tongue bite. No urinary incontinence. CAT scan of the head workup in progress. Continue present management. We will follow up. Sebastián Solano MD
[2018-07-30] MEDS: Pantoprazole 40 mg EC Tab PO SCH (05:28)
--- NOTE | 2018-07-30 06:38 | CP.PCM.PN ---
<Kaleigh Calvert - Last Filed: 07/30/18 12:30> Subjective - Date & Time of Evaluation Date of Evaluation: 07/30/18 Time of Evaluation: 06:55 - Subjective Subjective: IM Resident progress note for Dr. Bae's service Patient with no acute events overnight. Had episodes of brown urine. No fever or chills. Patient has intermittent confusions. No diarrhea. Temp of 100.2 yesterday afternoon. Objective - Vital Signs/Intake and Output Vital Signs (last 24 hours): Temp Pulse Resp BP Pulse Ox 98.2 F 94 H 19 125/69 98 07/30/18 05:59 07/30/18 05:59 07/30/18 05:59 07/30/18 05:59 07/29/18 06:00 Intake and Output: 07/29/18 07/30/18 18:59 06:59 Intake Total 1260 Output Total 100 Balance 1160 - Medications Medications: Current Medications Acetaminophen (Tylenol 325mg Tab) 650 mg PO Q6H PRN PRN Reason: Fever >100.4 F Last Admin: 07/29/18 12:53 Dose: 650 mg Carbamazepine (Tegretol) 200 mg PO TID [facility]; Protocol Last Admin: 07/29/18 13:29 Dose: 200 mg Fentanyl (Duragesic) 1 patch TD Q72 [facility] Gemfibrozil (Lopid) 600 mg PO BID [facility] Last Admin: 07/29/18 18:19 Dose: 600 mg Sodium Chloride (Sodium Chloride 0.9%) 1,000 mls @ 100 mls/hr IV .Q10H [facility] Last Admin: 07/29/18 09:26 Dose: 100 mls/hr Cefepime HCl (Maxipime 1gm) 1 gm in 100 mls @ 100 mls/hr IVPB Q12 [facility]; Protocol Stop: 08/06/18 22:01 Last Admin: 07/29/18 22:25 Dose: 100 mls/hr Levetiracetam (Keppra) 250 mg PO BID [facility] Last Admin: 07/29/18 18:19 Dose: 250 mg Oxycodone/Acetaminophen (Percocet 5/325 Mg Tab) 1 tab PO Q4H PRN PRN Reason: Pain, moderate (4-7) Stop: 04/05/19 10:34 Pantoprazole Sodium (Protonix Ec Tab) 40 mg PO 0600 [facility] Last Admin: 07/30/18 05:28 Dose: 40 mg Polyethylene Glycol (Miralax) 17 gm PO DAILY PRN PRN Reason: Constipation - Labs Labs: 07/29/18 06:00 07/29/18 06:00 PT 16.4 SECONDS (9.4-12.5) H 07/28/18 12:00 INR 1.45 07/28/18 12:00 APTT 38.5 Seconds (26.9-38.3) H 07/28/18 12:00 - Constitutional Appears: No Acute Distress, Chronically Ill - Head Exam Head Exam: ATRAUMATIC, NORMAL INSPECTION, NORMOCEPHALIC - Eye Exam Eye Exam: EOMI, Normal appearance, PERRL. absent: Scleral icterus Pupil Exam: NORMAL ACCOMODATION - ENT Exam ENT Exam: Mucous Membranes Moist - Neck Exam Neck Exam: Normal Inspection - Respiratory Exam Respiratory Exam: Clear to Ausculation Bilateral, NORMAL BREATHING PATTERN. absent: Rales, Rhonchi, Wheezes, Respiratory Distress, Stridor - Cardiovascular Exam Cardiovascular Exam: REGULAR RHYTHM, RRR, +S1, +S2. absent: Diastolic murmur, Gallop, JVD, Rubs, Murmur - GI/Abdominal Exam GI & Abdominal Exam: Soft, Normal Bowel Sounds. absent: Distended, Firm, Guarding, Rigid, Tenderness, Hyperactive Bowel Sounds, Rebound Additional comments: Obese abdomen. - Extremities Exam Extremities Exam: Pedal Edema (+2). absent: Tenderness - Back Exam Back Exam: NORMAL INSPECTION - Neurological Exam Neurological Exam: Alert, Awake Additional comments: intermittent confusions. 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 Blood culture x2 with no growth in the last 24 hours. ID following, on cefepime. HGB of 7.6 from 10, will give iv iron, and transfuse 1 unit. Hyponatremia, shahnaz and hyperkalemia responded to hydration, will discontinue fluid and encourage po intake. Continue with Tylenol prn for fever. Continue with fentanyl, and Percocet prn for pain. Continue with Lopid for hld. Will continue with tegretol 200 mg tid, Keppra 250 mg bid was added per neurologist. Will continue with protonix for Gerd. Continue with miralax prn for constipation. External compressive device for dvt prophylaxis. Spoke to patient's son this morning, consent was giving on the phone for the blood transfusion. Patient seen, examined and case discussed with Dr. Bae. <Kenny Bae S - Last Filed: 07/30/18 14:38> Objective - Vital Signs/Intake and Output Vital Signs (last 24 hours): Temp Pulse Resp BP Pulse Ox 97.5 F L 101 H 18 103/55 L 98 07/30/18 14:12 07/30/18 14:12 07/30/18 14:12 07/30/18 14:12 07/29/18 06:00 Intake and Output: 07/30/18 07/30/18 06:59 18:59 Intake Total 1260 10 Output Total 100 Balance 1160 10 - Medications Medications: Current Medications Acetaminophen (Tylenol 325mg Tab) 650 mg PO Q6H PRN PRN Reason: Fever >100.4 F Last Admin: 07/29/18 12:53 Dose: 650 mg Carbamazepine (Tegretol) 200 mg PO TID [facility]; Protocol Last Admin: 07/30/18 12:03 Dose: 200 mg Fentanyl (Duragesic) 1 patch TD Q72 [facility] Gemfibrozil (Lopid) 600 mg PO BID [facility] Last Admin: 07/30/18 11:21 Dose: 600 mg Cefepime HCl (Maxipime 1gm) 1 gm in 100 mls @ 100 mls/hr IVPB Q12 [facility]; Protocol Stop: 08/06/18 22:01 Last Admin: 07/30/18 11:21 Dose: 100 mls/hr Iron Sucrose 200 mg/ Sodium (Chloride) 110 mls @ 110 mls/hr IVPB ONCE [facility] Stop: 08/02/18 06:46 Last Admin: 07/30/18 09:15 Dose: 110 mls/hr Levetiracetam (Keppra) 250 mg PO BID [facility] Last Admin: 07/30/18 11:21 Dose: 250 mg Oxycodone/Acetaminophen (Percocet 5/325 Mg Tab) 1 tab PO Q4H PRN PRN Reason: Pain, moderate (4-7) Stop: 08/01/18 10:34 Pantoprazole Sodium (Protonix Ec Tab) 40 mg PO 0600 [facility] Last Admin: 07/30/18 05:28 Dose: 40 mg Polyethylene Glycol (Miralax) 17 gm PO DAILY PRN PRN Reason: Constipation - Labs Labs: 07/30/18 06:15 07/30/18 06:15 PT 16.4 SECONDS (9.4-12.5) H 07/28/18 12:00 INR 1.45 07/28/18 12:00 APTT 38.5 Seconds (26.9-38.3) H 07/28/18 12:00 Assessment and Plan - Assessment and Plan (Free Text) Plan: Pt seen and examined by me. I have reviewed the note of the coroner/medical examiner and I agree with it. I have discussed the assessment and plan with the resident. I have reviewed the medications and the last labs. Pt with UTI on Cefepime. Anemia due to blood loss with iron def and prostate ca. Blood loss is from hematuria with holland. Pt will get 1 U transfusion. Hyponatremia is improving with IVF. Hyperkalemia is improved. Percocet for pain prn due to bone mets from Prostate ca. Pt is on Keppr and Tegretol for Sz.
[2018-07-30 07:07] LABS: BASO # 0.01 K/mm3 (0.0-2.0); BASO % 0.1 % (0.0-3.0); EOS % 0.2 % (1.5-5.0); HEMOGLOBIN 7.6 g/dL (14.0-18.0); LYMPH # 3.1 (1.2-3.4); LYMPH % 33.3 % (22.0-35.0); MEAN CELL VOLUME 92.4 fl (80.0-105.0); MEAN CORPUSCULAR HEMOGLOBIN 30.5 pg (25.0-35.0); MEAN PLATELET VOLUME 9.3 fl (7.0-11.0); MONO % 11.1 % (1.0-6.0); RBC 2.49 10^6/uL (3.5-6.1); RED CELL DISTRIBUTION WIDTH 15.2 % (11.5-14.5); WHITE BLOOD COUNT 9.2 10^3/uL (4.5-11.0)
[2018-07-30 07:22] LABS: ALB/GLOB RATIO 0.9 (1.1-1.8); ALT/SGPT 15 U/L (7-56); AST/SGOT 52 U/L (17-59); BLOOD UREA NITROGEN 29 mg/dL (7-21); CALCIUM 8.5 mg/dL (8.4-10.5); GFR NON-AFRICAN AMERICAN > 60
--- NOTE | 2018-07-30 08:31 | HP ---
DATE OF EXAM: 07/29/2018 Addendum to today's history and physical dictated by the Resident and myself covering for Dr. Gambino. NOTE: The H and P is reviewed. The patient apparently is an 88-year-old male who was brought to emergency room because of foul smelling urine, dark in color. He was recently treated for Proteus mirabilis and Klebsiella UTI. Upon arrival, he was found to be septic, so admitted for further treatment and IV antibiotic. The patient has history of metastatic prostate cancer. He has indwelling catheter. History of palliative radiation and hormonal treatment. History of seizures. When I examined the patient, he seemed to be lethargic with poor oral intake. He seems to be spiking fever of T-max 100.2. Other examination agreed with the resident. LABORATORY DATA: He had a CT scan of the abdomen and pelvis shows hydroureteronephrosis, no obstructive stone or mass is identified except right posterior pararenal soft tissue mass suspicious for metastasis along with inferior rectal mass, multiple enlarged retroperitoneal and pelvic lymph nodes along with perirectal lymph nodes. So far, blood cultures are negative. Urine culture is pending. ASSESSMENT AND PLAN: The patient admitted with lethargy, fever, with history of carcinoma of prostate, now admitted with urinary tract infection. Currently, he is on Maxipime as recommended by Infectious Disease. He is on antiseizure medication. He is on analgesics, Tegretol. He is on IV fluid. Prognosis is poor. The patient is DNR. He also was found to have hematuria. The patient was followed by Dr. Nascimento in the past, requests us for his consult. Ricardo Thomas MD
[2018-07-30] MEDS: Cefepime 1gm in NS 100ml 1 GM/100 ML BAG IVPB SCH ×2 (11:21→21:38)
--- NOTE | 2018-07-30 14:08 | CP.PCM.PN ---
<You Wise - Last Filed: 07/30/18 14:04> Subjective - Date & Time of Evaluation Date of Evaluation: 07/30/18 Time of Evaluation: 08:55 - Subjective Subjective: You Wise D.O. PGY-3, Internal Medicine Resident, Infectious Disease Progress Note 88 year old male with a PMH of metastatic prostate cancer, seizures, glaucoma, dementia, chronic indwelling holland with previous multiple UTIs with E.coli, Klebsiella, and Enterococcus, who presents due to concern for darkening urine and decreased output from holland while at home per son. Infectious disease consultation was requested. Patient was seen and examined at bedside. Pleasantly enjoying breakfast. Appears somewhat tired. No acute complaints. Objective - Vital Signs/Intake and Output Vital Signs (last 24 hours): Temp Pulse Resp BP Pulse Ox 97.9 F 101 H 20 135/67 98 07/30/18 12:00 07/30/18 12:00 07/30/18 12:00 07/30/18 12:00 07/29/18 06:00 Intake and Output: 07/30/18 07/30/18 06:59 18:59 Intake Total 1260 Output Total 100 Balance 1160 - Medications Medications: Current Medications Acetaminophen (Tylenol 325mg Tab) 650 mg PO Q6H PRN PRN Reason: Fever >100.4 F Last Admin: 07/29/18 12:53 Dose: 650 mg Carbamazepine (Tegretol) 200 mg PO TID [facility]; Protocol Last Admin: 07/30/18 12:03 Dose: 200 mg Fentanyl (Duragesic) 1 patch TD Q72 [facility] Gemfibrozil (Lopid) 600 mg PO BID [facility] Last Admin: 07/30/18 11:21 Dose: 600 mg Cefepime HCl (Maxipime 1gm) 1 gm in 100 mls @ 100 mls/hr IVPB Q12 [facility]; Protocol Stop: 08/06/18 22:01 Last Admin: 07/30/18 11:21 Dose: 100 mls/hr Iron Sucrose 200 mg/ Sodium (Chloride) 110 mls @ 110 mls/hr IVPB ONCE [facility] Stop: 08/02/18 06:46 Last Admin: 07/30/18 09:15 Dose: 110 mls/hr Levetiracetam (Keppra) 250 mg PO BID [facility] Last Admin: 07/30/18 11:21 Dose: 250 mg Oxycodone/Acetaminophen (Percocet 5/325 Mg Tab) 1 tab PO Q4H PRN PRN Reason: Pain, moderate (4-7) Stop: 08/01/18 10:34 Pantoprazole Sodium (Protonix Ec Tab) 40 mg PO 0600 [facility] Last Admin: 07/30/18 05:28 Dose: 40 mg Polyethylene Glycol (Miralax) 17 gm PO DAILY PRN PRN Reason: Constipation - Labs Labs: 07/30/18 06:15 07/30/18 06:15 PT 16.4 SECONDS (9.4-12.5) H 07/28/18 12:00 INR 1.45 07/28/18 12:00 APTT 38.5 Seconds (26.9-38.3) H 07/28/18 12:00 - Constitutional Appears: No Acute Distress, Chronically Ill - Head Exam Head Exam: ATRAUMATIC, NORMOCEPHALIC - Eye Exam Eye Exam: EOMI. absent: Scleral icterus - ENT Exam ENT Exam: Normal Exam - Neck Exam Neck exam: Positive for: Normal Inspection - Respiratory Exam Respiratory Exam: absent: Rhonchi - Cardiovascular Exam Cardiovascular Exam: RRR, +S1, +S2 - GI/Abdominal Exam GI & Abdominal Exam: Soft. absent: Distended - Exam Additional comments: holland in place with darker yellow urine and some dark s ediment - Extremities Exam Extremities exam: Negative for: tenderness - Neurological Exam Neurological exam: Alert, Awake - Skin Skin Exam: Dry, Warm Assessment and Plan - Assessment and Plan (Free Text) Assessment: 88 year old male with a PMH of metastatic prostate cancer, seizures, glaucoma, dementia, chronic indwelling holland with previous multiple UTIs with E.coli, Klebsiella, and Enterococcus, who presents due to concern for darkening urine and decreased output from holland while at home per son. Infectious disease consultation was requested. Plan: Sepsis likely from urinary source Metastatic prostate cancer Seizures Glaucoma Dementia Chronic indwelling Holland Afebrile with no leukocytosis Hemodynamically stable Blood cultures negative 2/2 day 2 Urine cx showing yeast species, likely contaminant/colonization Continue cefepime day 2 We will follow with you Patient was seen and examined and case to be discussed with attending physician Thank you for the pleasure participating in the care of this interesting patient <Evangelist García - Last Filed: 07/30/18 17:52> Objective - Vital Signs/Intake and Output Vital Signs (last 24 hours): Temp Pulse Resp BP Pulse Ox 97.4 F L 101 H 20 104/51 L 98 07/30/18 17:32 07/30/18 17:32 07/30/18 17:32 07/30/18 17:32 07/29/18 06:00 Intake and Output: 07/30/18 07/30/18 06:59 18:59 Intake Total 1260 360 Output Total 100 Balance 1160 360 - Medications Medications: Current Medications Acetaminophen (Tylenol 325mg Tab) 650 mg PO Q6H PRN PRN Reason: Fever >100.4 F Last Admin: 07/29/18 12:53 Dose: 650 mg Carbamazepine (Tegretol) 200 mg PO TID [facility]; Protocol Last Admin: 07/30/18 16:54 Dose: 200 mg Fentanyl (Duragesic) 1 patch TD Q72 [facility] Gemfibrozil (Lopid) 600 mg PO BID [facility] Last Admin: 07/30/18 16:53 Dose: 600 mg Cefepime HCl (Maxipime 1gm) 1 gm in 100 mls @ 100 mls/hr IVPB Q12 [facility]; Protocol Stop: 08/06/18 22:01 Last Admin: 07/30/18 11:21 Dose: 100 mls/hr Iron Sucrose 200 mg/ Sodium (Chloride) 110 mls @ 110 mls/hr IVPB ONCE [facility] Stop: 08/02/18 06:46 Last Admin: 07/30/18 09:15 Dose: 110 mls/hr Levetiracetam (Keppra) 250 mg PO BID [facility] Last Admin: 07/30/18 16:53 Dose: 250 mg Oxycodone/Acetaminophen (Percocet 5/325 Mg Tab) 1 tab PO Q4H PRN PRN Reason: Pain, moderate (4-7) Stop: 08/01/18 10:34 Pantoprazole Sodium (Protonix Ec Tab) 40 mg PO 0600 [facility] Last Admin: 07/30/18 05:28 Dose: 40 mg Polyethylene Glycol (Miralax) 17 gm PO DAILY PRN PRN Reason: Constipation - Labs Labs: 07/30/18 06:15 07/30/18 06:15 PT 16.4 SECONDS (9.4-12.5) H 07/28/18 12:00 INR 1.45 07/28/18 12:00 APTT 38.5 Seconds (26.9-38.3) H 07/28/18 12:00 Attending/Attestation - Attestation I have personally seen and examined this patient.: Yes I have fully participated in the care of the patient.: Yes I have reviewed all pertinent clinical information, including history, physical exam and plan: Yes
--- NOTE | 2018-07-30 19:17 | CP.PCM.CON ---
<RenettaLiban vazquez - Last Filed: 07/30/18 19:13> History of Present Illness - History of Present Illness History of Present Illness: Podiatry consult note for attending Dr. Figueroa: 88 y/o M patient with PMH of Metastatic prostate cancer, seizures, glaucoma, dementia, UTI seen and evaluated at the bedside for discolored and elongated toe nails bilaterally with pain of the right foot. Patient states that he didnt have pain in his foot before but today he started to feel some discomfort in his right foot. Patient denies any trauma to his right foot. Patient denies any other pedal complaint. He denies any recent fever/Nausea/Vomiting/cough/chills or SOB. PMHx: Metastatic prostate cancer, seizures, glaucoma, dementia, UTI PSH: b/l cataract surgery Allergies: NKA Social Hx: Denies EtOH, drug or tobacco use. Review of Systems - Review of Systems Review of Systems: As per HPI - Constitutional Constitutional: As Per HPI Past Patient History - Infectious Disease Hx of Infectious Diseases: None - Tetanus Immunizations Tetanus Immunization: Unknown - Past Medical History & Family History Past Medical History?: Yes - Past Social History Smoking Status: Former Smoker Alcohol: None Drugs: Denies Home Situation {Lives}: With Family - CARDIAC Hx Cardiac Disorders: Yes Hx Congestive Heart Failure: Yes Hx Pacemaker: No Hx Peripheral Edema: Yes (ble +1) - PULMONARY Hx Respiratory Disorders: Yes (H/O SMOKING CIGARETTES) Hx Pneumonia: Yes Other/Comment: EMPYEMA/SARCOIDOSIS, left lung sx pt unsure what kind of sx - NEUROLOGICAL Hx Seizures: Yes - HEENT Hx HEENT Problems: Yes Hx Cataracts: Yes (with bilateral sx) - RENAL Hx Chronic Kidney Disease: Yes (retention) Other/Comment: chronic holland-Prostate ca. - ENDOCRINE/METABOLIC Hx Endocrine Disorders: No - HEMATOLOGICAL/ONCOLOGICAL Hx Blood Disorders: Yes (sepsis) Hx Cancer: Yes (prostate) Other/Comment: lupron injections once a month - INTEGUMENTARY Hx Dermatological Problems: Yes Other/Comment: left mid back fading surgical scar and area of round indentation in skin left outer mid back, discolored toenails, r ft 4th toe nail falling off, r ft great toe red dry wound, 2nd toenail black, left foot dry toenails, left hip pink pealed skin rash, buttocks reddened, lle fading old bruises - MUSCULOSKELETAL/RHEUMATOLOGICAL Hx Falls: No - GASTROINTESTINAL Hx Gastrointestinal Disorders: No - GENITOURINARY/GYNECOLOGICAL Hx Prostate Problems: Yes - PSYCHIATRIC Hx Substance Use: No - SURGICAL HISTORY Hx Mastectomy: No Other/Comment: left lung sx - ANESTHESIA Hx Anesthesia: No Hx Anesthesia Reactions: No Meds Allergies/Adverse Reactions: Allergies Allergy/AdvReac Type Severity Reaction Status Date / Time No Known Allergies Allergy Verified 05/27/18 18:01 - Medications Medications: Current Medications Acetaminophen (Tylenol 325mg Tab) 650 mg PO Q6H PRN PRN Reason: Fever >100.4 F Last Admin: 07/29/18 12:53 Dose: 650 mg Carbamazepine (Tegretol) 200 mg PO TID [facility]; Protocol Last Admin: 07/30/18 16:54 Dose: 200 mg Fentanyl (Duragesic) 1 patch TD Q72 [facility] Gemfibrozil (Lopid) 600 mg PO BID [facility] Last Admin: 07/30/18 18:40 Dose: Not Given Cefepime HCl (Maxipime 1gm) 1 gm in 100 mls @ 100 mls/hr IVPB Q12 [facility]; Protocol Stop: 08/06/18 22:01 Last Admin: 07/30/18 11:21 Dose: 100 mls/hr Iron Sucrose 200 mg/ Sodium (Chloride) 110 mls @ 110 mls/hr IVPB ONCE [facility] Stop: 08/02/18 06:46 Last Admin: 07/30/18 09:15 Dose: 110 mls/hr Levetiracetam (Keppra) 250 mg PO BID [facility] Last Admin: 07/30/18 18:40 Dose: Not Given Oxycodone/Acetaminophen (Percocet 5/325 Mg Tab) 1 tab PO Q4H PRN PRN Reason: Pain, moderate (4-7) Stop: 08/01/18 10:34 Pantoprazole Sodium (Protonix Ec Tab) 40 mg PO 0600 [facility] Last Admin: 07/30/18 05:28 Dose: 40 mg Polyethylene Glycol (Miralax) 17 gm PO DAILY PRN PRN Reason: Constipation Physical Exam - Constitutional Appears: Non-toxic, No Acute Distress - Head Exam Head Exam: ATRAUMATIC, NORMOCEPHALIC - Extremities Exam Additional comments: B/L LE focused exam: Vasc: DP/PT faintly palpable b/l, Cap refill < 3 sec to all digits, Temp gradient warm to cool from proximal to distal. Mild non-pitting tressa-malleolar edema noted b/l R>L. \ Neuro: Gross and protective sensations diminished. Derm: No open lesions, No clinical signs of active infection. Toe nails elongated, Dystrophic, Discolored and thickened X 10. Dry scaly lesions noted at the toes b/l. 2nd toe nail is darkly discolored. MSK: B/L cavus foot. B/L HAV, B/L Hammer toes 2-5. No pain on palpating both feet. MMT 3/5 to all groups b/l.. - Neurological Exam Neurological exam: Alert Results - Vital Signs Recent Vital Signs: Last Vital Signs Temp 97.4 F L 07/30/18 17:32 Pulse 101 H 07/30/18 17:32 Resp 20 07/30/18 17:32 BP 104/51 L 07/30/18 17:32 Pulse Ox 98 07/29/18 06:00 - Labs Result Diagrams: 07/30/18 06:15 07/30/18 06:15 Labs: Laboratory Results - last 24 hr 07/28/18 07/30/18 07/30/18 12:00 06:15 06:15 WBC 9.2 RBC 2.49 L Hgb 7.6 L Hct 23.0 L MCV 92.4 MCH 30.5 MCHC 33.0 RDW 15.2 H Plt Count 218 MPV 9.3 Neut % (Auto) 55.3 Lymph % (Auto) 33.3 [place] % (Auto) 11.1 H Eos % (Auto) 0.2 L Baso % (Auto) 0.1 Lymph # (Auto) 3.1 [place] # (Auto) 1.0 H Eos # (Auto) 0.0 Baso # (Auto) 0.01 Absolute Neuts (auto) 5.10 Sodium 131 L Potassium 3.9 Chloride 103 Carbon Dioxide 20 L Anion Gap 12 BUN 29 H Creatinine 0.7 L Est GFR ( Amer) > 60 Est GFR (Non-Af Amer) > 60 Random Glucose 80 Calcium 8.5 Phosphorus 3.3 Magnesium 1.8 Total Bilirubin 0.3 AST 52 ALT 15 Alkaline Phosphatase 104 Total Protein 6.4 Albumin 3.0 Globulin 3.4 Albumin/Globulin Ratio 0.9 L Blood Type A POSITIVE Antibody Screen Negative Crossmatch See Detail BBK History Checked Patient has bt Assessment & Plan - Assessment and Plan (Free Text) Assessment: 88 y/o M patient with PMH of Metastatic prostate cancer, seizures, glaucoma, dementia, UTI seen and evaluated at the bedside for discolored and elongated toe nails bilaterally with pain of the right foot. Plan: Patient seen and evaluated Plan discussed with Dr. Figueroa Charts, labs and vitals reviewed: Afebrile, Absent leukocytosis. Toe nails trimmed X 10 using sterile nail nipper. Patient tolerated the nail trimming well with no complications. Ordered R foot 3 views X-ray. Ordered Aquaphor cream to be applied BID to b/l feet. Thank you for the consult. Please reconsult if needed - Date & Time Date: 07/30/18 Time: 07:40 <Nelson Figueroa - Last Filed: 08/01/18 07:10> Meds - Medications Medications: Current Medications Acetaminophen (Tylenol 325mg Tab) 650 mg PO Q6H PRN PRN Reason: Fever >100.4 F Last Admin: 07/29/18 12:53 Dose: 650 mg Carbamazepine (Tegretol) 200 mg PO TID [facility]; Protocol Last Admin: 07/31/18 16:59 Dose: 200 mg Cefpodoxime Proxetil (Vantin) 200 mg PO Q12 [facility]; Protocol Stop: 08/05/18 22:01 Last Admin: 07/31/18 21:33 Dose: 200 mg Fentanyl (Duragesic) 1 patch TD Q72 [facility] Gemfibrozil (Lopid) 600 mg PO BID [facility] Last Admin: 07/31/18 16:59 Dose: 600 mg Iron Sucrose 200 mg/ Sodium (Chloride) 110 mls @ 110 mls/hr IVPB ONCE [facility] Stop: 08/02/18 06:46 Last Admin: 08/01/18 06:38 Dose: 110 mls/hr Levetiracetam (Keppra) 250 mg PO BID [facility] Last Admin: 07/31/18 16:59 Dose: 250 mg Multi-Ingredient Ointment (Hydrophor Oint) 1 gm TOP Q6H [facility] Last Admin: 07/31/18 06:24 Dose: 1 mg Pantoprazole Sodium (Protonix Ec Tab) 40 mg PO 0600 [facility] Last Admin: 08/01/18 06:39 Dose: 40 mg Polyethylene Glycol (Miralax) 17 gm PO DAILY PRN PRN Reason: Constipation Results - Vital Signs Recent Vital Signs: Last Vital Signs Temp 98.5 F 07/31/18 14:00 Pulse 94 H 07/31/18 14:00 Resp 18 07/31/18 14:00 BP 116/63 07/31/18 14:00 Pulse Ox 97 07/31/18 14:00 - Labs Result Diagrams: 07/31/18 08:00 07/31/18 08:00 Labs: Laboratory Results - last 24 hr 07/29/18 07/29/18 07/29/18 10:38 15:08 20:31 WBC RBC Hgb Hct MCV MCH MCHC RDW Plt Count MPV Neut % (Auto) Lymph % (Auto) [place] % (Auto) Eos % (Auto) Baso % (Auto) Lymph # (Auto) [place] # (Auto) Eos # (Auto) Baso # (Auto) Absolute Neuts (auto) Sodium Potassium Chloride Carbon Dioxide Anion Gap BUN Creatinine Est GFR ( Amer) Est GFR (Non-Af Amer) POC Glucose (mg/dL) 98 75 110 Random Glucose Calcium Phosphorus Magnesium Total Bilirubin AST ALT Alkaline Phosphatase Total Protein Albumin Globulin Albumin/Globulin Ratio 07/30/18 07/30/18 07/31/18 06:11 10:09 08:00 WBC 6.9 D RBC 2.88 L Hgb 8.5 L Hct 26.0 L MCV 90.3 MCH 29.5 MCHC 32.7 RDW 15.2 H Plt Count 197 MPV 8.9 Neut % (Auto) 50.7 Lymph % (Auto) 39.9 H [place] % (Auto) 9.0 H Eos % (Auto) 0.3 L Baso % (Auto) 0.1 Lymph # (Auto) 2.8 [place] # (Auto) 0.6 Eos # (Auto) 0.0 Baso # (Auto) 0.01 Absolute Neuts (auto) 3.50 Sodium Potassium Chloride Carbon Dioxide Anion Gap BUN Creatinine Est GFR ( Amer) Est GFR (Non-Af Amer) POC Glucose (mg/dL) 90 94 Random Glucose Calcium Phosphorus Magnesium Total Bilirubin AST ALT Alkaline Phosphatase Total Protein Albumin Globulin Albumin/Globulin Ratio 07/31/18 08:00 WBC RBC Hgb Hct MCV MCH MCHC RDW Plt Count MPV Neut % (Auto) Lymph % (Auto) [place] % (Auto) Eos % (Auto) Baso % (Auto) Lymph # (Auto) [place] # (Auto) Eos # (Auto) Baso # (Auto) Absolute Neuts (auto) Sodium 137 Potassium 3.5 L Chloride 107 Carbon Dioxide 22 Anion Gap 12 BUN 20 Creatinine 0.5 L Est GFR ( Amer) > 60 Est GFR (Non-Af Amer) > 60 POC Glucose (mg/dL) Random Glucose 87 Calcium 8.9 Phosphorus 2.6 Magnesium 1.6 L Total Bilirubin 0.5 AST 37 ALT 13 Alkaline Phosphatase 102 Total Protein 6.4 Albumin 3.1 Globulin 3.3 Albumin/Globulin Ratio 0.9 L Attending/Attestation - Attestation I have personally seen and examined this patient.: Yes I have fully participated in the care of the patient.: Yes I have reviewed all pertinent clinical information: Yes
[2018-07-31] MEDS: Petrolatum-Mineral Oil Oint (100gm) TOP SCH ×2 (01:34→06:24)
--- NOTE | 2018-07-31 01:44 | CON ---
DATE: 07/30/2018 GENITOURINARY CONSULTATION HISTORY OF PRESENT ILLNESS: I was asked to see this patient who I know well, with gross hematuria. The patient is well-known to me. He has a long history of metastatic prostate cancer. He has been on androgen deprivation therapy but had progression. He recently had palliative radiation for worsening bone metastases. The patient has multiple other medical problems including advanced dementia, glaucoma, seizures, chronic urinary infection with urinary retention. He is managed with Bray catheter changes by visiting nurses. He has been having recurrent episodes of gross hematuria in the past after his Foleys have been changed. He usually responds to antibiotics and IV fluids. The patient has not followed up in my office in many years. He was offered advanced hormonal therapy; however, it is unclear if the patient ever followed up for this. He is being followed by Oncology as well, who have taken over the hormonal therapy treatment for his prostate cancer. It is unclear if the patient is a medical candidate for any of the advanced therapies given his extremely debilitated state. The patient is DNR, do not intubate, and was on hospice recently. He presents again now with gross hematuria. PAST MEDICAL HISTORY: As per the history of present illness. MEDICATIONS: Currently include Duragesic, Keppra, Lopid, Maxipime, MiraLax, Percocet, Protonix, Tegretol, Tylenol. ALLERGIES: NO KNOWN DRUG ALLERGIES. FAMILY HISTORY: Noncontributory for this admission. SOCIAL HISTORY: No smoking or EtOH use. REVIEW OF SYSTEMS: These could not be obtained from the patient. Per the chart, it appears the patient had seizure or convulsions in the emergency room, also question of sepsis protocol being activated. PHYSICAL EXAMINATION: GENERAL: The patient is seen in his room. He is awake and responsive, although not making sense when asked questions. VITAL SIGNS: He is afebrile, temp of 97.9, pulse of 101, BP 135/67, respirations 20. ABDOMEN: Soft. There is no apparent rebound or guarding. GENITOURINARY: Bray catheter in place which is draining darkly blood-tinged urine. Scrotum is normal. Testes bilaterally descended, atrophic. Epididymides are normal. NECK: No obvious adenopathy. CHEST: Shows a slightly increased inspiratory effort. CARDIAC: Positive S1, S2. There is moderate peripheral edema noted. LABORATORY EXAM: WBC count 9.2 today, was 13.3 on admission. Creatinine 0.7 with a GFR greater than 60. Urinalysis shows too numerous to count rbc's, wbc's, and is positive for nitrites. Blood cultures show no growth after 48 hours. Urine culture shows yeast species. IMAGING EXAM: The patient had a head CT done which showed no intracranial mass, hemorrhage, or evidence of acute infarct. The patient had an abdominopelvic CT done which showed multiple enlarged retroperitoneal and pelvic lymph nodes. The extent of the adenopathy is essentially unchanged from prior exam. Bladder is not distended, there is a Bray catheter noted in the bladder. There is mild hydronephrosis and hydroureter of the right kidney. No left hydronephrosis. There is a stable 1.7 cm low-density mid right renal mass consistent with a cyst. There is a right posterior para renal soft tissue mass suspicious for metastases, this has enlarged compared to prior CT. There is a possible inferior rectal mass, widespread sclerotic metastases. IMPRESSION AND PLAN: This is an 88-year-old male with widely metastatic, hormonally insensitive prostate cancer. The patient is do not resuscitate/do not intubate. From a urologic standpoint, there is not much I can offer the patient at this point. The patient should be seen by Oncology for continued hormonal therapy and it is unclear whether he has been receiving this. As for the gross hematuria, the patient likely has invasion of the bladder from prostate cancer, which could be causing bleeding. He also has a chronic urinary infection as he has had urinary retention for many years with an indwelling Bray catheter. The infection will not be able to be cleared permanently and will continue to recur as soon as antibiotics are stopped. Recommend Infectious Disease consultation for yeast in his urine. Would continue conservative treatment and I would recommend discussion regarding hospice care with the patient's son as he continues to come into the hospital with recurrent issues of hematuria and worsening metastatic prostate cancer. Unfortunately, there is no cure that could be offered to him given his advanced age and other medical issues. His condition remains critical and I do not recommend any surgical intervention at this time given his extremely poor prognosis. Henry Nascimento MD
[2018-07-31 08:05] LABS: BASO # 0.01 K/mm3 (0.0-2.0); BASO % 0.1 % (0.0-3.0); EOS % 0.3 % (1.5-5.0); HEMOGLOBIN 8.5 g/dL (14.0-18.0); LYMPH # 2.8 (1.2-3.4); LYMPH % 39.9 % (22.0-35.0); MEAN CELL VOLUME 90.3 fl (80.0-105.0); MEAN CORPUSCULAR HEMOGLOBIN 29.5 pg (25.0-35.0); MEAN CORPUSCULAR HGB CONC 32.7 g/dl (31.0-37.0); MEAN PLATELET VOLUME 8.9 fl (7.0-11.0); MONO # 0.6 (0.1-0.6); RBC 2.88 10^6/uL (3.5-6.1); RED CELL DISTRIBUTION WIDTH 15.2 % (11.5-14.5); WHITE BLOOD COUNT 6.9 10^3/uL (4.5-11.0)
[2018-07-31 08:25] LABS: ALB/GLOB RATIO 0.9 (1.1-1.8); ALBUMIN 3.1 g/dL (3.0-4.8); ALT/SGPT 13 U/L (7-56); AST/SGOT 37 U/L (17-59); BLOOD UREA NITROGEN 20 mg/dL (7-21); CALCIUM 8.9 mg/dL (8.4-10.5); GFR NON-AFRICAN AMERICAN > 60
--- NOTE | 2018-07-31 08:31 | RAD ---
Date of service: 07/30/2018 PROCEDURE: Right Foot Radiographs. HISTORY: Pain R foot. COMPARISON: None. TECHNIQUE: 3 views obtained. FINDINGS: BONES: Diffuse osteopenia suggests osteoporosis. The great toe appears in likely chronic hyper extension with all toes exhibiting hammertoe deformities. No acute displaced fracture appreciable. Deformity of the left foot is seen in general with excessive high arch present. JOINTS: No definite subluxation or dislocation. Degenerative cortical sclerosis and joint space narrowing seen throughout the joints of the foot diffusely. SOFT TISSUES: Normal. OTHER FINDINGS: None. IMPRESSION: No acute fracture or dislocation. Markedly elevated arch with diffuse hammertoe deformities identified throughout the digits.
[2018-07-31] MEDS: Cefepime 1gm in NS 100ml 1 GM/100 ML BAG IVPB SCH (10:17)
--- NOTE | 2018-07-31 11:01 | CP.PCM.PN ---
<Kaleigh Calvert - Last Filed: 07/31/18 10:55> Subjective - Date & Time of Evaluation Date of Evaluation: 07/31/18 Time of Evaluation: 06:55 - Subjective Subjective: IM Resident progress note for Dr. Bae's service Patient remains stable, no acute events overnight. The urine catheter still draining dark brown urine. No fever. Patient denies pain, tolerating po intake. Objective - Vital Signs/Intake and Output Vital Signs (last 24 hours): Temp Pulse Resp BP Pulse Ox 98.4 F 90 18 151/64 H 98 07/31/18 06:00 07/31/18 06:00 07/31/18 06:00 07/31/18 06:00 07/31/18 06:00 Intake and Output: 07/31/18 07/31/18 06:59 18:59 Intake Total 780 Output Total 3200 Balance -2420 - Medications Medications: Current Medications Acetaminophen (Tylenol 325mg Tab) 650 mg PO Q6H PRN PRN Reason: Fever >100.4 F Last Admin: 07/29/18 12:53 Dose: 650 mg Carbamazepine (Tegretol) 200 mg PO TID [facility]; Protocol Last Admin: 07/31/18 10:17 Dose: 200 mg Fentanyl (Duragesic) 1 patch TD Q72 [facility] Gemfibrozil (Lopid) 600 mg PO BID [facility] Last Admin: 07/31/18 10:17 Dose: 600 mg Cefepime HCl (Maxipime 1gm) 1 gm in 100 mls @ 100 mls/hr IVPB Q12 [facility]; Protocol Stop: 08/06/18 22:01 Last Admin: 07/31/18 10:17 Dose: 100 mls/hr Iron Sucrose 200 mg/ Sodium (Chloride) 110 mls @ 110 mls/hr IVPB ONCE [facility] Stop: 08/02/18 06:46 Last Admin: 07/31/18 06:56 Dose: 110 mls/hr Levetiracetam (Keppra) 250 mg PO BID [facility] Last Admin: 07/31/18 10:17 Dose: 250 mg Multi-Ingredient Ointment (Hydrophor Oint) 1 gm TOP Q6H [facility] Last Admin: 07/31/18 06:24 Dose: 1 mg Pantoprazole Sodium (Protonix Ec Tab) 40 mg PO 0600 [facility] Last Admin: 07/30/18 05:28 Dose: 40 mg Polyethylene Glycol (Miralax) 17 gm PO DAILY PRN PRN Reason: Constipation - Labs Labs: 07/31/18 08:00 07/31/18 08:00 PT 16.4 SECONDS (9.4-12.5) H 07/28/18 12:00 INR 1.45 07/28/18 12:00 APTT 38.5 Seconds (26.9-38.3) H 07/28/18 12:00 - Constitutional Appears: No Acute Distress, Chronically Ill - Head Exam Head Exam: ATRAUMATIC, NORMAL INSPECTION, NORMOCEPHALIC - Eye Exam Eye Exam: EOMI, Normal appearance, PERRL. absent: Scleral icterus Pupil Exam: NORMAL ACCOMODATION - ENT Exam ENT Exam: Mucous Membranes Moist - Neck Exam Neck Exam: Normal Inspection - Respiratory Exam Respiratory Exam: Clear to Ausculation Bilateral, NORMAL BREATHING PATTERN. absent: Rales, Rhonchi, Wheezes, Respiratory Distress, Stridor - Cardiovascular Exam Cardiovascular Exam: REGULAR RHYTHM, RRR, +S1, +S2. absent: Bradycardia, Tachycardia, Diastolic murmur, Gallop, Irregular Rhythm, JVD, Rubs, Murmur - GI/Abdominal Exam GI & Abdominal Exam: Soft, Normal Bowel Sounds. absent: Distended, Firm, Guarding, Rigid, Tenderness, Organomegaly, Rebound - Extremities Exam Extremities Exam: Pedal Edema (trace ) - Back Exam Back Exam: NORMAL INSPECTION - Neurological Exam Neurological Exam: Alert, Awake Additional comments: waxing and waning mental status. - Psychiatric Exam Psychiatric exam: Normal Affect, Normal Mood - Skin Skin Exam: Dry, Normal Color, Warm Additional comments: Toe ulcer, poorly kept toe nails. Assessment and Plan - Assessment and Plan (Free Text) Assessment: 1) Hematuria from traumatic Bray and cancer 2) Sepsis due to Recurrent catheter associated UTI 3) Right hydrouteronephrosis 4) Hyponatremia- resolved 5) Hyperkalemia- resolved, now hypokalemia 6) SHAHNAZ- resolved 7) Acute on chronic anemia likely due to hematuria 8) Chronic abdominal pain likely due to metastasis 9) Constipation 10) Metastatic prostate cancer metastatic to the bone s/p ADT and palliative radiation on Lupron, 11) Breakthrough seizure 12) glaucoma 13) Dyslipidemia 14) Transient hypoglycemia- resolved 15) DNI/DNR 16) Hypomagnesemia Plan: For the hematuria, urologist evaluated patient believed patient's metastatic prostate cancer likely has invaded the bladder, coupled with recurrent infections is contributing to the hematuria. As per urologist there is no cure available for patient's malignancy other than hormonal therapy which patient and his son has refused in the past. Patient is currently DNI/DNR, will follow up with patient's son, and consult palliate care for possible hospice if family agrees. Patient also had CT abdomen and pelvis on this admission revealing extensive metastasis. For the sepsis, chest x-ray was normal, ua with UTI, however urine culture is growing yeast, patient is on cefepime, has just completed levaquin prior to this admission, leukocytosis has resolved, and no fever, blood cultures with no growth, will follow up with ID to possibly deescalate or stop the antibiotic. Patient's hyponatremia, shahnaz was likely from dehydration, and has corrected with IVF. Hyperkalemia was secondary to the above, which has also corrected, will continue to monitor. Patient now has hypokalemia, and hypomagnesemia which are being repleted. For the acute on chronic anemia, iron panel revealed iron deficiency, patient received a unit of blood yesterday, and is on IV iron, hgb this morning improved to 8.5, will continue to monitor. Will continue with tylenol prn for fever. Continue with tegretol 200 mg tid and keppra 250 mg bid for seizure. On lopid for hld. Protonix for gerd. Miralax prn for constipation. Podiatry following for foot care, right foot x-ray with no acute fractures or dislocation. Has external compressive devices for DVT prophylaxis. Patient seen, examined and case discussed with Dr. Bae. <Kenny Bae - Last Filed: 07/31/18 17:38> Objective - Vital Signs/Intake and Output Vital Signs (last 24 hours): Temp Pulse Resp BP Pulse Ox 98.5 F 94 H 18 116/63 97 07/31/18 14:00 07/31/18 14:00 07/31/18 14:00 07/31/18 14:00 07/31/18 14:00 Intake and Output: 07/31/18 07/31/18 06:59 18:59 Intake Total 780 720 Output Total 3200 700 Balance -2420 20 - Medications Medications: Current Medications Acetaminophen (Tylenol 325mg Tab) 650 mg PO Q6H PRN PRN Reason: Fever >100.4 F Last Admin: 07/29/18 12:53 Dose: 650 mg Carbamazepine (Tegretol) 200 mg PO TID [facility]; Protocol Last Admin: 07/31/18 16:59 Dose: 200 mg Cefpodoxime Proxetil (Vantin) 200 mg PO Q12 [facility]; Protocol Stop: 08/05/18 22:01 Fentanyl (Duragesic) 1 patch TD Q72 [facility] Gemfibrozil (Lopid) 600 mg PO BID [facility] Last Admin: 07/31/18 16:59 Dose: 600 mg Iron Sucrose 200 mg/ Sodium (Chloride) 110 mls @ 110 mls/hr IVPB ONCE [facility] Stop: 08/02/18 06:46 Last Admin: 07/31/18 06:56 Dose: 110 mls/hr Levetiracetam (Keppra) 250 mg PO BID [facility] Last Admin: 07/31/18 16:59 Dose: 250 mg Multi-Ingredient Ointment (Hydrophor Oint) 1 gm TOP Q6H [facility] Last Admin: 07/31/18 06:24 Dose: 1 mg Pantoprazole Sodium (Protonix Ec Tab) 40 mg PO 0600 [facility] Last Admin: 07/30/18 05:28 Dose: 40 mg Polyethylene Glycol (Miralax) 17 gm PO DAILY PRN PRN Reason: Constipation - Labs Labs: 07/31/18 08:00 07/31/18 08:00 PT 16.4 SECONDS (9.4-12.5) H 07/28/18 12:00 INR 1.45 07/28/18 12:00 APTT 38.5 Seconds (26.9-38.3) H 07/28/18 12:00 Assessment and Plan - Assessment and Plan (Free Text) Plan: Patient was seen and examined by me. I have reviewed the note of the bio medical technician and have gone over the plan of care. I agree with the note. I have reviewed the medications and the last labs.
[2018-07-31] MEDS ORDERED: Potassium Chloride 40 mEq/30 ml LIQ UD PO ONE (11:05)
[2018-07-31] MEDS ORDERED: Magnesium Sulfate 2 gm/50 ml 2 GM/50 ML BAG IVPB ONE (11:05)
--- NOTE | 2018-07-31 13:42 | CP.PCM.PN ---
Subjective - Date & Time of Evaluation Date of Evaluation: 07/31/18 Time of Evaluation: 13:39 - Subjective Subjective: Podiatry progress note for Drs. Wong/Henry 88 y/o M patient seen and evaluated at the bedside with Dr. Wong for discolored and elongated toe nails bilaterally with pain of the right foot. Patient states that he didnt have pain in his foot before but today he started to feel some discomfort in his right foot. Patient denies any trauma to his right foot. Patient denies any other pedal complaint. He denies any recent fever/Nausea/Vomiting/cough/chills or SOB. Objective - Vital Signs/Intake and Output Vital Signs (last 24 hours): Temp Pulse Resp BP Pulse Ox 98.4 F 90 18 151/64 H 98 07/31/18 06:00 07/31/18 06:00 07/31/18 06:00 07/31/18 06:00 07/31/18 06:00 Intake and Output: 07/31/18 07/31/18 06:59 18:59 Intake Total 780 Output Total 3200 Balance -2420 - Medications Medications: Current Medications Acetaminophen (Tylenol 325mg Tab) 650 mg PO Q6H PRN PRN Reason: Fever >100.4 F Last Admin: 07/29/18 12:53 Dose: 650 mg Carbamazepine (Tegretol) 200 mg PO TID [facility]; Protocol Last Admin: 07/31/18 13:06 Dose: 200 mg Cefpodoxime Proxetil (Vantin) 200 mg PO Q12 [facility]; Protocol Stop: 08/05/18 22:01 Fentanyl (Duragesic) 1 patch TD Q72 [facility] Gemfibrozil (Lopid) 600 mg PO BID [facility] Last Admin: 07/31/18 10:17 Dose: 600 mg Iron Sucrose 200 mg/ Sodium (Chloride) 110 mls @ 110 mls/hr IVPB ONCE [facility] Stop: 08/02/18 06:46 Last Admin: 07/31/18 06:56 Dose: 110 mls/hr Levetiracetam (Keppra) 250 mg PO BID [facility] Last Admin: 07/31/18 10:17 Dose: 250 mg Multi-Ingredient Ointment (Hydrophor Oint) 1 gm TOP Q6H [facility] Last Admin: 07/31/18 06:24 Dose: 1 mg Pantoprazole Sodium (Protonix Ec Tab) 40 mg PO 0600 [facility] Last Admin: 07/30/18 05:28 Dose: 40 mg Polyethylene Glycol (Miralax) 17 gm PO DAILY PRN PRN Reason: Constipation - Labs Labs: 07/31/18 08:00 07/31/18 08:00 PT 16.4 SECONDS (9.4-12.5) H 07/28/18 12:00 INR 1.45 07/28/18 12:00 APTT 38.5 Seconds (26.9-38.3) H 07/28/18 12:00 - Constitutional Appears: Well, Non-toxic, No Acute Distress - Head Exam Head Exam: ATRAUMATIC, NORMOCEPHALIC - Extremities Exam Additional comments: B/L LE focused exam: Vasc: DP/PT faintly palpable b/l, Cap refill < 3 sec to all digits, Temp gradient warm to cool from proximal to distal. Mild non-pitting tressa-malleolar edema noted b/l R>L. Neuro: Gross and protective sensations diminished. Derm: No open lesions, No clinical signs of active infection. Toe nails elongated, Dystrophic, Discolored and thickened X 10. Dry scaly lesions noted at the toes b/l. 2nd toe nail is darkly discolored. MSK: B/L cavus foot. B/L HAV, B/L Hammer toes 2-5. No pain on palpating both feet. MMT 3/5 to all groups b/l.. - Neurological Exam Neurological Exam: Alert, Awake, Oriented x3 - Psychiatric Exam Psychiatric exam: Normal Affect, Normal Mood Assessment and Plan - Assessment and Plan (Free Text) Assessment: 88 y/o M patient with PMH of Metastatic prostate cancer, seizures, glaucoma, dementia, UTI seen and evaluated at the bedside for discolored and elongated toe nails bilaterally with pain of the right foot. Plan: Patient seen and evaluated with Dr. Wong Plan discussed with Dr. Wong Foot X-rays: no acute fractures of dislocations Charts, labs and vitals reviewed: Afebrile, Absent leukocytosis Toe nails trimmed X 10 using sterile nail nipper Patient tolerated the nail trimming well with no complications Aquaphor cream to be applied BID to b/l feet Ordered multipodus boots for patient, to be worn at all times Podiatry to sign off at this time, please re-consult as needed
--- NOTE | 2018-07-31 14:27 | PN ---
DATE: 07/31/2018 SUBJECTIVE: The patient is in bed in no acute distress, nontoxic. PHYSICAL EXAMINATION: VITAL SIGNS: Temperature is 97, blood pressure is 120/70, respiratory 16. HEENT: Unremarkable. NECK: Supple. LUNGS: Have decreased breath sounds. HEART: Normal S1, S2. ABDOMEN: Soft. LABORATORY EXAMINATION: Reveals the patient's white count of 6.9 and the chemistries are noted. Urinalysis is noted and toxicology is noted. Microbiology, his blood cultures are negative. Review of orders reveals the patient to be on cefepime. ASSESSMENT AND PLAN: This is an 88-year-old male who has prosthetic metastatic prostate cancer, glaucoma, dementia, chronic indwelling Bray catheter and Escherichia coli Klebsiella Enterococcus and presents to the unit. With sepsis from urine as the source and seizures and glaucoma, dementia. Day #3 of cefepime. We will switch to p.o.. The patient's. Status x-ray of the foot. Which is reviewed. We will discontinue cefepime and switch to p.o. Vantin 10 to complete a short course of therapy and p.o. Vantin 200 mg twice a day x5 days. Evangelist García MD
--- NOTE | 2018-07-31 15:23 | CP.PCM.CON ---
History of Present Illness - History of Present Illness History of Present Illness: Palliative consult requested by Dr New Bae Reason: Goals of care This is an 88 year old male with history of metastatic prostate ca ncer,seizures,dementia who presented to ED on 07/28 with dark urine. Patient was found to have UTI, with lactic acid of 2.1 . As per patient's son the Holland catheter was draining dark urine. While in ED the patient had a seizure. The patient complained of feeling cold, denied fever,nausea, vomiting or diarrhea,abdominal pain/chest pain. The patient has chronic low back pain Labs : WBC 13.3, Hbb10.0NA 131, K 3.9, BUN 29, Screener And Blender 0.7. Blood culture negative. UC + yeast Chest x ray: negative. Head CT: Age related changes, no acute findings CT of Ab/Pel: Right hydronephrosis, no obstruction. Right para renal soft tissue mass suspicious for metastasis.possible inferior rectal mass. Multiple enlarged retro peritoneal and pelvic lymph nodes. Amy rectal lymph nodes, widespread sclerotic metastasis. PMHx: metastatic prostate cancer s/p ADT and palliative XRT,on Lupron, seizures, glaucoma, dementia, UTI w/ indwelling holland (+ for E.coli, Klebsiella, Enterococcus, Proteus Mirabilis), Sarcoidosis, empyema,chronic low back pain.. PSHx: b/l cataract surgery, lung surgery. Social History: Former smoker,no alcohol or illicit drug use. Patient lives at home and has a 24 hr home health aide. He is not active, was s wheelchair bound but has recently been to weak to get out of bed Family History: Non-contributory Advance Care Planning: POLST;DNR/DNI. His son Tj Ríos is POA [phone] Review of Systems: As per HPI, 12 point ROS otherwise negative. Past Patient History - Infectious Disease Hx of Infectious Diseases: None - Tetanus Immunizations Tetanus Immunization: Unknown - Past Medical History & Family History Past Medical History?: Yes - Past Social History Smoking Status: Former Smoker Alcohol: None Drugs: Denies Home Situation {Lives}: With Family - CARDIAC Hx Cardiac Disorders: Yes Hx Congestive Heart Failure: Yes Hx Pacemaker: No Hx Peripheral Edema: Yes (ble +1) - PULMONARY Hx Respiratory Disorders: Yes (H/O SMOKING CIGARETTES) Hx Pneumonia: Yes Other/Comment: EMPYEMA/SARCOIDOSIS, left lung sx pt unsure what kind of sx - NEUROLOGICAL Hx Seizures: Yes - HEENT Hx HEENT Problems: Yes Hx Cataracts: Yes (with bilateral sx) - RENAL Hx Chronic Kidney Disease: Yes (retention) Other/Comment: chronic holland-Prostate ca. - ENDOCRINE/METABOLIC Hx Endocrine Disorders: No - HEMATOLOGICAL/ONCOLOGICAL Hx Blood Disorders: Yes (sepsis) Hx Cancer: Yes (prostate) Other/Comment: lupron injections once a month - INTEGUMENTARY Hx Dermatological Problems: Yes Other/Comment: left mid back fading surgical scar and area of round indentation in skin left outer mid back, discolored toenails, r ft 4th toe nail falling off, r ft great toe red dry wound, 2nd toenail black, left foot dry toenails, left hip pink pealed skin rash, buttocks reddened, lle fading old bruises - MUSCULOSKELETAL/RHEUMATOLOGICAL Hx Falls: No - GASTROINTESTINAL Hx Gastrointestinal Disorders: No - GENITOURINARY/GYNECOLOGICAL Hx Prostate Problems: Yes - PSYCHIATRIC Hx Substance Use: No - SURGICAL HISTORY Hx Mastectomy: No Other/Comment: left lung sx - ANESTHESIA Hx Anesthesia: No Hx Anesthesia Reactions: No Meds Allergies/Adverse Reactions: Allergies Allergy/AdvReac Type Severity Reaction Status Date / Time No Known Allergies Allergy Verified 05/27/18 18:01 - Medications Medications: Current Medications Acetaminophen (Tylenol 325mg Tab) 650 mg PO Q6H PRN PRN Reason: Fever >100.4 F Last Admin: 07/29/18 12:53 Dose: 650 mg Carbamazepine (Tegretol) 200 mg PO TID [facility]; Protocol Last Admin: 07/31/18 13:06 Dose: 200 mg Cefpodoxime Proxetil (Vantin) 200 mg PO Q12 [facility]; Protocol Stop: 08/05/18 22:01 Fentanyl (Duragesic) 1 patch TD Q72 [facility] Gemfibrozil (Lopid) 600 mg PO BID [facility] Last Admin: 07/31/18 10:17 Dose: 600 mg Iron Sucrose 200 mg/ Sodium (Chloride) 110 mls @ 110 mls/hr IVPB ONCE [facility] Stop: 08/02/18 06:46 Last Admin: 07/31/18 06:56 Dose: 110 mls/hr Levetiracetam (Keppra) 250 mg PO BID [facility] Last Admin: 07/31/18 10:17 Dose: 250 mg Multi-Ingredient Ointment (Hydrophor Oint) 1 gm TOP Q6H [facility] Last Admin: 07/31/18 06:24 Dose: 1 mg Pantoprazole Sodium (Protonix Ec Tab) 40 mg PO 0600 [facility] Last Admin: 07/30/18 05:28 Dose: 40 mg Polyethylene Glycol (Miralax) 17 gm PO DAILY PRN PRN Reason: Constipation Physical Exam - Constitutional Appears: Cachectic, Chronically Ill - Head Exam Head Exam: NORMAL INSPECTION - Eye Exam Eye Exam: Normal appearance, PERRL - ENT Exam ENT Exam: Mucous Membranes Moist, Normal Oropharynx - Respiratory Exam Respiratory Exam: Decreased Breath Sounds, NORMAL BREATHING PATTERN - Cardiovascular Exam Cardiovascular Exam: REGULAR RHYTHM, +S1, +S2 - GI/Abdominal Exam GI & Abdominal Exam: Hypoactive Bowel Sounds, Soft - Exam Additional comments: holland dark urine - Extremities Exam Additional comments: 2+ edema of both lower enormities - Back Exam Back exam: tenderness - Neurological Exam Neurological exam: Altered - Skin Skin Exam: Dry, Pallor - Additional Findings Additional findings: Palliative performance scale rating 30% Results - Vital Signs Recent Vital Signs: Last Vital Signs Temp 98.4 F 07/31/18 06:00 Pulse 90 07/31/18 06:00 Resp 18 07/31/18 06:00 BP 151/64 H 07/31/18 06:00 Pulse Ox 98 07/31/18 06:00 - Labs Result Diagrams: 07/31/18 08:00 07/31/18 08:00 Labs: Laboratory Results - last 24 hr 07/28/18 07/29/18 07/29/18 12:00 10:38 15:08 WBC RBC Hgb Hct MCV MCH MCHC RDW Plt Count MPV Neut % (Auto) Lymph % (Auto) [place] % (Auto) Eos % (Auto) Baso % (Auto) Lymph # (Auto) [place] # (Auto) Eos # (Auto) Baso # (Auto) Absolute Neuts (auto) Sodium Potassium Chloride Carbon Dioxide Anion Gap BUN Creatinine Est GFR ( Amer) Est GFR (Non-Af Amer) POC Glucose (mg/dL) 98 75 Random Glucose Calcium Phosphorus Magnesium Total Bilirubin AST ALT Alkaline Phosphatase Total Protein Albumin Globulin Albumin/Globulin Ratio Crossmatch See Detail 07/29/18 07/30/18 07/30/18 20:31 06:11 10:09 WBC RBC Hgb Hct MCV MCH MCHC RDW Plt Count MPV Neut % (Auto) Lymph % (Auto) [place] % (Auto) Eos % (Auto) Baso % (Auto) Lymph # (Auto) [place] # (Auto) Eos # (Auto) Baso # (Auto) Absolute Neuts (auto) Sodium Potassium Chloride Carbon Dioxide Anion Gap BUN Creatinine Est GFR ( Amer) Est GFR (Non-Af Amer) POC Glucose (mg/dL) 110 90 94 Random Glucose Calcium Phosphorus Magnesium Total Bilirubin AST ALT Alkaline Phosphatase Total Protein Albumin Globulin Albumin/Globulin Ratio Crossmatch 07/31/18 07/31/18 08:00 08:00 WBC 6.9 D RBC 2.88 L Hgb 8.5 L Hct 26.0 L MCV 90.3 MCH 29.5 MCHC 32.7 RDW 15.2 H Plt Count 197 MPV 8.9 Neut % (Auto) 50.7 Lymph % (Auto) 39.9 H [place]lan % (Auto) 9.0 H Eos % (Auto) 0.3 L Baso % (Auto) 0.1 Lymph # (Auto) 2.8 [place] # (Auto) 0.6 Eos # (Auto) 0.0 Baso # (Auto) 0.01 Absolute Neuts (auto) 3.50 Sodium 137 Potassium 3.5 L Chloride 107 Carbon Dioxide 22 Anion Gap 12 BUN 20 Creatinine 0.5 L Est GFR ( Amer) > 60 Est GFR (Non-Af Amer) > 60 POC Glucose (mg/dL) Random Glucose 87 Calcium 8.9 Phosphorus 2.6 Magnesium 1.6 L Total Bilirubin 0.5 AST 37 ALT 13 Alkaline Phosphatase 102 Total Protein 6.4 Albumin 3.1 Globulin 3.3 Albumin/Globulin Ratio 0.9 L Crossmatch Assessment & Plan - Assessment and Plan (Free Text) Assessment: 88 year old male with history of metastatic prostate cancer s/p palliative XRT, seizures, glaucoma, dementia,indwelling holland, multiple UTI's, sarcoidosis who is admitted with sepsis,UTI, anemia, seizures,hematuria. Found to have progression of metastatic disease in pelvis and invasion to bladder, right hydronephrosis. The patient is alert, confused at times. Bed bound. Has chronic back pain Patients's son Tj at bedside. Goals of care discussed at length. Tj understands the extent of his father's illness and poor prognosis. Tj ve rbalized that he wants to take his father home and make as comfortable as possible. Tj has a time signal wirer family consumer scientist for his father. Hospice services explained in detail, questions answered. Tj is agreeable to meeting with a hospice community liaison to transition home with hospice services. Tj to to meet with with [facility] hospice community liaison tomorrow morning. Time spent with family in goals of care and end of life counseling, 50 minutes Plan: ID,Urology, Neuro notes reviewed, rec's appreciated Goals of care and end of life counseling Cefepime d/c,now on Vantin Continue Tegretol and Keppra, seizure precautions Continue Durgesic 12 mcg for pain Bowel regimen, Miralax daily
[2018-07-31] MEDS: Pantoprazole 40 mg EC Tab PO SCH (19:37)
[2018-07-31] MEDS: Cefpodoxime (Vantin) 200 mg Tab PO SCH (21:33)
--- NOTE | 2018-07-31 21:49 | PN ---
DATE: 07/31/2018 The patient was seen and examined. I do agree with the note of the medical lab technologist. I was involved in the plan of care. The patient has metastatic prostate cancer that is causing him to have hematuria as well as the chronic pain. He is DNR/DNI. I appreciate the input from palliative care. I did review the note of palliative care team. The patient's son had agreed to consult for palliative care and possible hospice. The patient has iron deficiency and is getting IV iron. He is on Tegretol and Keppra for his seizure disorder. The patient is on MiraLax for constipation. 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 He has had hematuria because of the Bray catheter. He does have iron deficiency most likely from that as well as the prostate cancer. The patient has sepsis that is improving with the IV antibiotics. He has right-sided hydroureteronephrosis that is chronic. The patient's acute kidney injury is resolved. He had hyponatremia that has improved as well and resolved. The hyperkalemia has improved. He has dyslipidemia. The patient's son, Tj, has been updated. The patient is on Lopid for his dyslipidemia. He is on fentanyl patch for his pain. He is on Vantin for his antibiotics and cefepime has been discontinued. Kenny Bae MD
[2018-08-01] MEDS: Pantoprazole 40 mg EC Tab PO SCH (06:39)
[2018-08-01] MEDS: Petrolatum-Mineral Oil Oint (100gm) TOP SCH ×2 (08:00→13:54)
--- NOTE | 2018-08-01 08:43 | CP.PCM.DIS ---
Provider - Provider Date of Admission: 07/28/18 15:20 Attending physician: Kenny Bae MD Primary care physician: Glynn Shields MD Consults: 07/28/18 18:21 Consult [Physician Consult] Routine Comment: Consulting Provider: Evangelist García Consulting Physician: Evangelist García Reason for Consult: UTI 07/29/18 10:00 Nursing Referral for Palliative Care Routine Comment: Physician Instructions: Reason For Exam: Patient meets criteria 07/29/18 12:13 Neurology Consult Routine Comment: Consulting Provider: Osmin Solano Consulting Physician: Osmin Solano Reason for Consult: breakthrough seizure 07/29/18 23:15 Consult [Physician Consult] Routine Comment: Consulting Provider: Henry Nascimento Consulting Physician: Henry Nascimento Reason for Consult: hematuria 07/30/18 01:11 Social Work Referral Routine Comment: 24 hr home care Physician Instructions: Reason For Exam: protocol 07/30/18 08:00 Nursing Referral for Wound Care Routine Comment: Physician Instructions: Reason For Exam: Protocol 07/30/18 08:06 Consult [Physician Consult] Routine Comment: Consulting Provider: Jennifer Wong Consulting Physician: Jennifer Wong Reason for Consult: r toe discoloration 07/30/18 09:00 Case Management Referral Routine Comment: Physician Instructions: Reason For Exam: Protocol Reason for Referral: Discharge Planning 07/31/18 08:26 Palliative Care Consult Routine Comment: Consulting Provider: Deisy Danielle Physician Instructions: Reason For Exam: hospice 07/31/18 13:14 Hospice [Case Management Referral] Routine Comment: Physician Instructions: Reason For Exam: [facility] Reason for Referral: Hospice [facility] Course - Lab Results Lab Results: Micro Results 07/28/18 12:00 Blood-Venous Blood Culture - Preliminary NO GROWTH AFTER 3 DAYS 07/28/18 12:00 Blood-Venous Blood Culture - Preliminary NO GROWTH AFTER 3 DAYS 07/28/18 12:00 Urine,Bray Urine Culture - Final Yeast Species Most Recent Lab Values WBC 6.9 10^3/uL (4.5-11.0) D 07/31/18 08:00 RBC 2.88 10^6/uL (3.5-6.1) L 07/31/18 08:00 Hgb 8.5 g/dL (14.0-18.0) L 07/31/18 08:00 Hct 26.0 % (42.0-52.0) L 07/31/18 08:00 MCV 90.3 fl (80.0-105.0) 07/31/18 08:00 MCH 29.5 pg (25.0-35.0) 07/31/18 08:00 MCHC 32.7 g/dl (31.0-37.0) 07/31/18 08:00 RDW 15.2 % (11.5-14.5) H 07/31/18 08:00 Plt Count 197 10^3/uL (120.0-450.0) 07/31/18 08:00 MPV 8.9 fl (7.0-11.0) 07/31/18 08:00 Neut % (Auto) 50.7 % (50.0-68.0) 07/31/18 08:00 Lymph % (Auto) 39.9 % (22.0-35.0) H 07/31/18 08:00 [place] % (Auto) 9.0 % (1.0-6.0) H 07/31/18 08:00 Eos % (Auto) 0.3 % (1.5-5.0) L 07/31/18 08:00 Baso % (Auto) 0.1 % (0.0-3.0) 07/31/18 08:00 Lymph # (Auto) 2.8 (1.2-3.4) 07/31/18 08:00 [place] # (Auto) 0.6 (0.1-0.6) 07/31/18 08:00 Eos # (Auto) 0.0 (0.0-0.7) 07/31/18 08:00 Baso # (Auto) 0.01 K/mm3 (0.0-2.0) 07/31/18 08:00 Absolute Neuts (auto) 3.50 (1.4-6.5) 07/31/18 08:00 PT 16.4 SECONDS (9.4-12.5) H 07/28/18 12:00 INR 1.45 07/28/18 12:00 APTT 38.5 Seconds (26.9-38.3) H 07/28/18 12:00 pO2 141 mm/Hg (30-55) H 07/28/18 15:10 VBG pH 7.26 (7.32-7.43) L 07/28/18 15:10 VBG pCO2 44.0 (40-60) 07/28/18 15:10 VBG HCO3 19.7 mmol/l (21-28) L 07/28/18 15:10 VBG Total CO2 21.1 mmol.L (22-28) L 07/28/18 15:10 VBG O2 Sat (Calc) 100.3 % (40-65) H 07/28/18 15:10 VBG Base Excess -7.2 mmol/L (0.0-2.0) L 07/28/18 15:10 VBG Potassium 4.8 mmol/L (3.6-5.2) 07/28/18 15:10 Sodium 122.0 mmol/L (132-148) L 07/28/18 15:10 Chloride 93.0 mmol/L (98-107) L 07/28/18 15:10 Glucose 132 mg/dl (75-110) H 07/28/18 15:10 Lactate 1.6 mmol/L (0.7-2.1) 07/28/18 15:10 FiO2 21.0 % 07/28/18 15:10 Crit Value Called To Annette gonzales 07/28/18 12:00 Crit Value Called By 07/28/18 12:00 Blood Gas Notified Time 1216 07/28/18 12:00 Sodium 137 mmol/L (132-148) 07/31/18 08:00 Potassium 3.5 mmol/L (3.6-5.0) L 07/31/18 08:00 Chloride 107 mmol/L (98-107) 07/31/18 08:00 Carbon Dioxide 22 mmol/L (21-33) 07/31/18 08:00 Anion Gap 12 (10-20) 07/31/18 08:00 BUN 20 mg/dL (7-21) 07/31/18 08:00 Creatinine 0.5 mg/dl (0.8-1.5) L 07/31/18 08:00 Est GFR ( Amer) > 60 07/31/18 08:00 Est GFR (Non-Af Amer) > 60 07/31/18 08:00 POC Glucose (mg/dL) 94 mg/dL (65-110) 07/30/18 10:09 Random Glucose 87 mg/dL (70-110) 07/31/18 08:00 Calcium 8.9 mg/dL (8.4-10.5) 07/31/18 08:00 Phosphorus 2.6 mg/dL (2.5-4.5) 07/31/18 08:00 Magnesium 1.6 mg/dL (1.7-2.2) L 07/31/18 08:00 Iron 20 ug/dL (45-180) L 07/29/18 10:20 TIBC 205 ug/dL (261-462) L 07/29/18 10:20 % Saturation 10 % (20-55) L 07/29/18 10:20 Ferritin 319.0 ng/mL 07/29/18 10:20 Total Bilirubin 0.5 mg/dL (0.2-1.3) 07/31/18 08:00 AST 37 U/L (17-59) 07/31/18 08:00 ALT 13 U/L (7-56) 07/31/18 08:00 Alkaline Phosphatase 102 U/L (38-126) 07/31/18 08:00 Total Protein 6.4 g/dL (5.8-8.3) 07/31/18 08:00 Albumin 3.1 g/dL (3.0-4.8) 07/31/18 08:00 Globulin 3.3 gm/dL 07/31/18 08:00 Albumin/Globulin Ratio 0.9 (1.1-1.8) L 07/31/18 08:00 TSH 3rd Generation 1.61 mIU/mL (0.46-4.68) 07/28/18 12:00 Venous Blood Potassium 4.8 mmol/L (3.6-5.2) 07/28/18 15:10 Urine Color Light brown (YELLOW) 07/28/18 11:56 Urine Appearance Cloudy (CLEAR) 07/28/18 11:56 Urine pH 6.5 (4.7-8.0) 07/28/18 11:56 Ur Specific Cat[place] 1.020 (1.005-1.035) 07/28/18 11:56 Urine Protein 100 mg/dL (<30 mg/dL) H 07/28/18 11:56 Urine Glucose (UA) Negative mg/dL (NEGATIVE) 07/28/18 11:56 Urine Ketones Negative mg/dL (NEGATIVE) 07/28/18 11:56 Urine Blood Large (NEGATIVE) H 07/28/18 11:56 Urine Nitrate Positive (NEGATIVE) H 07/28/18 11:56 Urine Bilirubin Negative (NEGATIVE) 07/28/18 11:56 Urine Urobilinogen 0.2 E.U./dL (<1 E.U./dL) 07/28/18 11:56 Ur Leukocyte Esterase Moderate Jus/uL (NEGATIVE) H 07/28/18 11:56 Urine RBC Tntc /hpf (0-2) H 07/28/18 11:56 Urine WBC Tntc /hpf (0-6) H 07/28/18 11:56 Ur Epithelial Cells None /hpf (0-5) 07/28/18 11:56 Urine Bacteria Large /hpf (NONE) 07/28/18 11:56 Carbamazepine 3 ug/mL (4.0-10.0) L 07/29/18 10:33 Blood Type A POSITIVE 07/28/18 12:00 Antibody Screen Negative 07/28/18 12:00 Crossmatch See Detail 07/28/18 12:00 BBK History Checked Patient has bt 07/28/18 12:00 Discharge Exam - Head Exam Head Exam: NORMAL INSPECTION Discharge Plan - Follow Up Plan Condition: GUARDED Disposition: HOME/ ROUTINE Referrals: Glynn Shields MD [Primary Care Provider] -
--- NOTE | 2018-08-01 09:32 | CP.PCM.PN ---
<Kaleigh Calvert - Last Filed: 08/01/18 10:57> Subjective - Date & Time of Evaluation Date of Evaluation: 08/01/18 Time of Evaluation: 08:00 - Subjective Subjective: IM Resident progress note for Dr. Bae's service . Patient with no acute events overnight. Patient remains afebrile, the Bray catheter still draining dark brown urine. No diarrhea, nausea, or vomiting. Patient is tolerating po intake. I had an extensive conversation with patient's son Mr. Tj Mcadams yesterday, he understands patient has advanced prostate cancer, and that the cancer might have invaded the bladder causing chronic infections and hematuria. Patient's son would like his dad to go home with home hospice. Objective - Vital Signs/Intake and Output Vital Signs (last 24 hours): Temp Pulse Resp BP Pulse Ox 97.3 F L 103 H 18 156/66 H 98 07/31/18 22:00 07/31/18 22:00 07/31/18 22:00 07/31/18 22:00 07/31/18 22:00 Intake and Output: 08/01/18 08/01/18 06:59 18:59 Intake Total 120 Output Total 800 Balance -680 - Medications Medications: Current Medications Acetaminophen (Tylenol 325mg Tab) 650 mg PO Q6H PRN PRN Reason: Fever >100.4 F Last Admin: 07/29/18 12:53 Dose: 650 mg Carbamazepine (Tegretol) 200 mg PO TID [facility]; Protocol Last Admin: 07/31/18 16:59 Dose: 200 mg Cefpodoxime Proxetil (Vantin) 200 mg PO Q12 [facility]; Protocol Stop: 08/05/18 22:01 Last Admin: 07/31/18 21:33 Dose: 200 mg Fentanyl (Duragesic) 1 patch TD Q72 [facility] Gemfibrozil (Lopid) 600 mg PO BID [facility] Last Admin: 07/31/18 16:59 Dose: 600 mg Iron Sucrose 200 mg/ Sodium (Chloride) 110 mls @ 110 mls/hr IVPB ONCE [facility] Stop: 08/02/18 06:46 Last Admin: 08/01/18 06:38 Dose: 110 mls/hr Levetiracetam (Keppra) 250 mg PO BID [facility] Last Admin: 07/31/18 16:59 Dose: 250 mg Multi-Ingredient Ointment (Hydrophor Oint) 1 gm TOP Q6H [facility] Last Admin: 07/31/18 06:24 Dose: 1 mg Pantoprazole Sodium (Protonix Ec Tab) 40 mg PO 0600 [facility] Last Admin: 08/01/18 06:39 Dose: 40 mg Polyethylene Glycol (Miralax) 17 gm PO DAILY PRN PRN Reason: Constipation - Labs Labs: 07/31/18 08:00 07/31/18 08:00 PT 16.4 SECONDS (9.4-12.5) H 07/28/18 12:00 INR 1.45 07/28/18 12:00 APTT 38.5 Seconds (26.9-38.3) H 07/28/18 12:00 - Constitutional Appears: No Acute Distress, Chronically Ill - Head Exam Head Exam: ATRAUMATIC, NORMAL INSPECTION, NORMOCEPHALIC - Eye Exam Eye Exam: EOMI, Normal appearance, PERRL. absent: Scleral icterus Pupil Exam: NORMAL ACCOMODATION - ENT Exam ENT Exam: Mucous Membranes Moist - Neck Exam Neck Exam: Normal Inspection - Respiratory Exam Respiratory Exam: Clear to Ausculation Bilateral, NORMAL BREATHING PATTERN. absent: Rales, Rhonchi, Wheezes, Respiratory Distress, Stridor - Cardiovascular Exam Cardiovascular Exam: REGULAR RHYTHM, RRR, +S1, +S2. absent: Diastolic murmur, Gallop, JVD, Rubs, Murmur - GI/Abdominal Exam GI & Abdominal Exam: Soft, Normal Bowel Sounds. absent: Distended, Firm, G uarding, Rigid, Tenderness, Organomegaly, Rebound - Extremities Exam Extremities Exam: Pedal Edema (+1). absent: Tenderness - Back Exam Back Exam: NORMAL INSPECTION. absent: rash noted - Neurological Exam Neurological Exam: Alert, Awake Additional comments: a&ox2, waxing and waning mentation. - Psychiatric Exam Psychiatric exam: Normal Affect, Normal Mood - Skin Skin Exam: Dry, Normal Color, Warm Assessment and Plan - Assessment and Plan (Free Text) Assessment: 1) Hematuria from traumatic Bray and cancer 2) Sepsis due to Recurrent catheter associated UTI- sepsis resolved 3) Right hydrouteronephrosis 4) Hyponatremia- resolved 5) Hyperkalemia- resolved, now hypokalemia 6) SHAHNAZ- resolved 7) Acute on chronic anemia likely due to hematuria 8) Chronic abdominal pain likely due to metastasis 9) Constipation 10) Metastatic prostate cancer metastatic to the bone s/p ADT and palliative radiation on Lupron, 11) Breakthrough seizure 12) glaucoma 13) Dyslipidemia 14) Transient hypoglycemia- resolved 15) DNI/DNR 16) Hypomagnesemia Plan: Bray catheter with dark urine, afebrile, now on po vantin for possible uti per ID. magnesium and potassium were repleted yesterday. For acute on chronic anemia, patient s/p 1 unit of prbc, getting iv iron. Will continue with tylenol prn for fever. Continue with tegretol 200 mg tid and keppra 250 mg bid for seizure. On lopid for hld. Protonix for gerd. Miralax prn for constipation. Podiatry following for foot care. External compressive devices for DVT prophylaxis. [facility] hospice care meeting with patient's son this morning to arrange for hospice. Patient will likely be going home tomorrow on hospice. Patient seen, examined and case discussed with Dr. Bae. <Kenny Bae S - Last Filed: 08/01/18 16:03> Objective - Vital Signs/Intake and Output Vital Signs (last 24 hours): Temp Pulse Resp BP Pulse Ox 97.7 F 93 H 18 157/71 H 99 08/01/18 14:00 08/01/18 14:00 08/01/18 14:00 08/01/18 14:00 08/01/18 14:00 Intake and Output: 08/01/18 08/01/18 06:59 18:59 Intake Total 120 Output Total 800 Balance -680 - Medications Medications: Current Medications Acetaminophen (Tylenol 325mg Tab) 650 mg PO Q6H PRN PRN Reason: Fever >100.4 F Last Admin: 07/29/18 12:53 Dose: 650 mg Carbamazepine (Tegretol) 200 mg PO TID [facility]; Protocol Last Admin: 08/01/18 13:53 Dose: 200 mg Cefpodoxime Proxetil (Vantin) 200 mg PO Q12 [facility]; Protocol Stop: 08/05/18 22:01 Last Admin: 08/01/18 09:43 Dose: 200 mg Fentanyl (Duragesic) 1 patch TD Q72 [facility] Last Admin: 08/01/18 11:53 Dose: 1 patch Gemfibrozil (Lopid) 600 mg PO BID [facility] Last Admin: 08/01/18 09:43 Dose: 600 mg Iron Sucrose 200 mg/ Sodium (Chloride) 110 mls @ 110 mls/hr IVPB ONCE [facility] Stop: 08/02/18 06:46 Last Admin: 08/01/18 06:38 Dose: 110 mls/hr Levetiracetam (Keppra) 250 mg PO BID [facility] Last Admin: 08/01/18 09:43 Dose: 250 mg Multi-Ingredient Ointment (Hydrophor Oint) 1 gm TOP Q6H [facility] Last Admin: 08/01/18 13:54 Dose: 1 gm Pantoprazole Sodium (Protonix Ec Tab) 40 mg PO 0600 [facility] Last Admin: 08/01/18 06:39 Dose: 40 mg Polyethylene Glycol (Miralax) 17 gm PO DAILY PRN PRN Reason: Constipation - Labs Labs: 07/31/18 08:00 07/31/18 08:00 PT 16.4 SECONDS (9.4-12.5) H 07/28/18 12:00 INR 1.45 07/28/18 12:00 APTT 38.5 Seconds (26.9-38.3) H 07/28/18 12:00 Assessment and Plan - Assessment and Plan (Free Text) Plan: Pt seen and examined by me. I have reviewed the note of the medical insurance collector and I agree with it. I have discussed the assessment and plan with the resident. I have reviewed the medications and the last labs.
[2018-08-01] MEDS: Cefpodoxime (Vantin) 200 mg Tab PO SCH ×2 (09:43→21:18)
--- NOTE | 2018-08-01 15:54 | CP.PCM.PN ---
Subjective - Date & Time of Evaluation Date of Evaluation: 08/01/18 Time of Evaluation: 11:00 - Subjective Subjective: Alert, offers no complaints Objective - Vital Signs/Intake and Output Vital Signs (last 24 hours): Temp Pulse Resp BP Pulse Ox 97.7 F 93 H 18 157/71 H 99 08/01/18 14:00 08/01/18 14:00 08/01/18 14:00 08/01/18 14:00 08/01/18 14:00 Intake and Output: 08/01/18 08/01/18 06:59 18:59 Intake Total 120 Output Total 800 Balance -680 - Medications Medications: Current Medications Acetaminophen (Tylenol 325mg Tab) 650 mg PO Q6H PRN PRN Reason: Fever >100.4 F Last Admin: 07/29/18 12:53 Dose: 650 mg Carbamazepine (Tegretol) 200 mg PO TID [facility]; Protocol Last Admin: 08/01/18 13:53 Dose: 200 mg Cefpodoxime Proxetil (Vantin) 200 mg PO Q12 [facility]; Protocol Stop: 08/05/18 22:01 Last Admin: 08/01/18 09:43 Dose: 200 mg Fentanyl (Duragesic) 1 patch TD Q72 [facility] Last Admin: 08/01/18 11:53 Dose: 1 patch Gemfibrozil (Lopid) 600 mg PO BID [facility] Last Admin: 08/01/18 09:43 Dose: 600 mg Iron Sucrose 200 mg/ Sodium (Chloride) 110 mls @ 110 mls/hr IVPB ONCE TARA Stop: 08/02/18 06:46 Last Admin: 08/01/18 06:38 Dose: 110 mls/hr Levetiracetam (Keppra) 250 mg PO BID [facility] Last Admin: 08/01/18 09:43 Dose: 250 mg Multi-Ingredient Ointment (Hydrophor Oint) 1 gm TOP Q6H [facility] Last Admin: 08/01/18 13:54 Dose: 1 gm Pantoprazole Sodium (Protonix Ec Tab) 40 mg PO 0600 [facility] Last Admin: 08/01/18 06:39 Dose: 40 mg Polyethylene Glycol (Miralax) 17 gm PO DAILY PRN PRN Reason: Constipation - Labs Labs: 07/31/18 08:00 07/31/18 08:00 PT 16.4 SECONDS (9.4-12.5) H 07/28/18 12:00 INR 1.45 07/28/18 12:00 APTT 38.5 Seconds (26.9-38.3) H 07/28/18 12:00 - Constitutional Appears: Chronically Ill - Eye Exam Eye Exam: Normal appearance, PERRL - ENT Exam ENT Exam: Mucous Membranes Moist - Respiratory Exam Respiratory Exam: Decreased Breath Sounds, NORMAL BREATHING PATTERN - Cardiovascular Exam Cardiovascular Exam: REGULAR RHYTHM, +S1, +S2 - GI/Abdominal Exam GI & Abdominal Exam: Soft, Normal Bowel Sounds - Exam Additional comments: holland - Extremities Exam Extremities Exam: Normal Capillary Refill, Pedal Edema - Skin Skin Exam: Dry, Pallor Assessment and Plan - Assessment and Plan (Free Text) Assessment: Patient son met with [facility].
--- NOTE | 2018-08-01 16:09 | CP.PCM.PN ---
Subjective - Date & Time of Evaluation Date of Evaluation: 08/01/18 Time of Evaluation: 14:00 - Subjective Subjective: Alert, offers no complaints Objective - Vital Signs/Intake and Output Vital Signs (last 24 hours): Temp Pulse Resp BP Pulse Ox 97.7 F 93 H 18 157/71 H 99 08/01/18 14:00 08/01/18 14:00 08/01/18 14:00 08/01/18 14:00 08/01/18 14:00 Intake and Output: 08/01/18 08/01/18 06:59 18:59 Intake Total 120 Output Total 800 Balance -680 - Medications Medications: Current Medications Acetaminophen (Tylenol 325mg Tab) 650 mg PO Q6H PRN PRN Reason: Fever >100.4 F Last Admin: 07/29/18 12:53 Dose: 650 mg Carbamazepine (Tegretol) 200 mg PO TID [facility]; Protocol Last Admin: 08/01/18 13:53 Dose: 200 mg Cefpodoxime Proxetil (Vantin) 200 mg PO Q12 [facility]; Protocol Stop: 08/05/18 22:01 Last Admin: 08/01/18 09:43 Dose: 200 mg Fentanyl (Duragesic) 1 patch TD Q72 [facility] Last Admin: 08/01/18 11:53 Dose: 1 patch Gemfibrozil (Lopid) 600 mg PO BID [facility] Last Admin: 08/01/18 09:43 Dose: 600 mg Iron Sucrose 200 mg/ Sodium (Chloride) 110 mls @ 110 mls/hr IVPB ONCE TARA Stop: 08/02/18 06:46 Last Admin: 08/01/18 06:38 Dose: 110 mls/hr Levetiracetam (Keppra) 250 mg PO BID [facility] Last Admin: 08/01/18 09:43 Dose: 250 mg Multi-Ingredient Ointment (Hydrophor Oint) 1 gm TOP Q6H [facility] Last Admin: 08/01/18 13:54 Dose: 1 gm Pantoprazole Sodium (Protonix Ec Tab) 40 mg PO 0600 [facility] Last Admin: 08/01/18 06:39 Dose: 40 mg Polyethylene Glycol (Miralax) 17 gm PO DAILY PRN PRN Reason: Constipation - Labs Labs: 07/31/18 08:00 07/31/18 08:00 PT 16.4 SECONDS (9.4-12.5) H 07/28/18 12:00 INR 1.45 07/28/18 12:00 APTT 38.5 Seconds (26.9-38.3) H 07/28/18 12:00 - Constitutional Appears: Chronically Ill - Eye Exam Eye Exam: Normal appearance, PERRL - ENT Exam ENT Exam: Mucous Membranes Moist - Respiratory Exam Respiratory Exam: Decreased Breath Sounds, NORMAL BREATHING PATTERN - Cardiovascular Exam Cardiovascular Exam: REGULAR RHYTHM, +S1, +S2 - GI/Abdominal Exam GI & Abdominal Exam: Soft, Normal Bowel Sounds - Exam Additional comments: holland draining dark whit urine - Extremities Exam Extremities Exam: Pedal Edema - Back Exam Back Exam: NORMAL INSPECTION - Neurological Exam Neurological Exam: Alert - Skin Skin Exam: Dry, Pallor Assessment and Plan - Assessment and Plan (Free Text) Assessment: 88 year old male with history of metastatic prostate cancer s/p palliative XRT, seizures, glaucoma, dementia,indwelling holland, multiple UTI's, sarcoidosis who is admitted with sepsis,UTI, anemia, seizures,hematuria. Found to have progression of metastatic disease in pelvis and invasion to bladder, right hydronephrosis. Patient son met with [facility] therapist earlier today.Son in agreement for hospice care upon discharge. I spoke with son to reinforce goals of car under hospice and to provide end of life counseling. Psychosocial support given Time spent in end of life counseling with family, 30 minutes Plan: End of life counseling UTI :Continue Vantin Seizure: Continue Tegretol and keppra. Mirilax for constipation Duragesic 12 mcg transdermal patch for pain control Upon discharge will transition home with [facility] services
--- NOTE | 2018-08-01 17:14 | PN ---
DATE: 08/01/2018 SUBJECTIVE: The patient seen and examined. I do agree with a note of the medical language specialist. I was involved in the plan of care. The patient has been on p.o. antibiotics for UTI. He had 1 unit of transfusion because of anemia secondary to blood loss with hematuria. The patient continues to be on Tegretol and Keppra for seizure disorder. He is on Protonix for his GERD. He is on MiraLax for his constipation. He is being followed by [facility], I did review Dr. Danielle's note. The patient's son care and had agreed to hospice. He is scheduled to be discharged tomorrow to hospice services. The patient is currently DNR and DNI. Kenny Bae MD
--- NOTE | 2018-08-01 23:34 | PN ---
DATE: 08/01/2018 SUBJECTIVE: The patient is seen in bed, in no acute distress. PHYSICAL EXAMINATION: VITAL SIGNS: Temperature is 97, blood pressure is 150/70, and respiratory rate of 18. HEENT: Unremarkable. NECK: Supple. LUNGS: Decreased breath sounds. HEART: Normal S1 and S2. ABDOMEN: Soft. LABORATORY DATA: Reveals a white count of 6.9, hemoglobin of 8, BUN of 20, and creatinine of 0.2. Urine culture is positive for yeast and blood cultures are no growth. REVIEW OF ORDERS: Reveals the patient is on p.o. . ASSESSMENT AND PLAN: This is an 88-year-old male who seen earlier today in room 560 for his prostate cancer with metastasis, glaucoma, dementia, chronic indwelling catheter, and day #4 of antibiotics with complete 5 days. Overall prognosis is poor. Evangelist García MD
[2018-08-02] MEDS: Pantoprazole 40 mg EC Tab PO SCH (05:29)
--- NOTE | 2018-08-02 08:54 | PN ---
DATE: 08/02/2018 SUBJECTIVE: The patient has no complaints of any chest pain or shortness of breath. No headaches. PHYSICAL EXAMINATION: VITAL SIGNS: Temperature is 98.4, pulse of 103, blood pressure 180/67, respirations 16. GENERAL: The patient is lying in bed, comfortable, and in no acute distress. HEENT: Anicteric sclerae. Moist mucosa. [employer] conjunctivae. No oral lesions. NECK: No JVD, anterior and posterior adenopathy, thyromegaly, or bruits. CARDIOVASCULAR: S1 and S2 regular. No murmurs, rubs or gallops. LUNGS: Clear to auscultation bilaterally. No wheezes, rales, or rhonchi. ABDOMEN: Bowel sounds are positive. Soft, nontender and nondistended. No hepatosplenomegaly. No rebound and no guarding. EXTREMITIES: No cyanosis, clubbing, or edema. PSYCHIATRIC: He is awake, alert and oriented x2. No anxiety or depression. VASCULAR: 2+ pulses in the carotid pulses and pedal pulses. SKIN: No erythema or nodules. SPINE: Shows normal curvature. LABORATORY DATA: Hemoglobin is 8.5. Creatinine 0.5. ASSESSMENT: 1. Hematuria. 2. Urinary retention with chronic Bray. 3. Sepsis secondary to urinary tract infection. 4. Hyponatremia, improved. 5. Hyperkalemia, improved. 6. Acute kidney injury, improved. 7. Prostate cancer with metastasis. 8. Constipation. 9. Seizure disorder. 10. Dyslipidemia. 11. Hypomagnesemia. 12. Do not resuscitate/do not intubate. PLAN: The patient is currently comfortable. The patient's sodium has improved. He is on Keppra for his seizures. The patient is on fentanyl patch for pain. He is on Vantin for antibiotics. The patient is receiving Protonix daily. He is on gemfibrozil. The patient is on Duragesic patch. His pain is controlled. The patient is awaiting for discharge to hospice. Kenny Bae MD [facility]
[2018-08-02] MEDS: Cefpodoxime (Vantin) 200 mg Tab PO SCH (09:15)
[2018-08-02 11:35] VITALS: BP 160/71; PULSE 90; RESP 20; TEMP 98.3; O2SAT 98
--- NOTE | 2018-08-02 12:26 | CP.PCM.PN ---
Subjective - Date & Time of Evaluation Date of Evaluation: 08/02/18 Time of Evaluation: 10:50 - Subjective Subjective: Comfortable in bed, no fevers. Objective - Vital Signs/Intake and Output Vital Signs (last 24 hours): Temp Pulse Resp BP Pulse Ox 98.4 F 103 H 16 180/67 H 96 08/01/18 22:00 08/01/18 22:00 08/01/18 22:00 08/01/18 22:00 08/01/18 22:00 Intake and Output: 08/02/18 08/02/18 06:59 18:59 Intake Total 960 Output Total 0 Balance 960 - Medications Medications: Current Medications Acetaminophen (Tylenol 325mg Tab) 650 mg PO Q6H PRN PRN Reason: Fever >100.4 F Last Admin: 07/29/18 12:53 Dose: 650 mg Carbamazepine (Tegretol) 200 mg PO TID [facility]; Protocol Last Admin: 08/02/18 09:15 Dose: 200 mg Cefpodoxime Proxetil (Vantin) 200 mg PO Q12 [facility]; Protocol Stop: 08/05/18 22:01 Last Admin: 08/02/18 09:15 Dose: 200 mg Fentanyl (Duragesic) 1 patch TD Q72 [facility] Last Admin: 08/01/18 11:53 Dose: 1 patch Gemfibrozil (Lopid) 600 mg PO BID [facility] Last Admin: 08/02/18 09:14 Dose: 600 mg Levetiracetam (Keppra) 250 mg PO BID [facility] Last Admin: 08/02/18 09:14 Dose: 250 mg Multi-Ingredient Ointment (Hydrophor Oint) 1 gm TOP Q6H [facility] Last Admin: 08/01/18 13:54 Dose: 1 gm Pantoprazole Sodium (Protonix Ec Tab) 40 mg PO 0600 [facility] Last Admin: 08/02/18 05:29 Dose: 40 mg Polyethylene Glycol (Miralax) 17 gm PO DAILY PRN PRN Reason: Constipation - Labs Labs: 07/31/18 08:00 07/31/18 08:00 PT 16.4 SECONDS (9.4-12.5) H 07/28/18 12:00 INR 1.45 07/28/18 12:00 APTT 38.5 Seconds (26.9-38.3) H 07/28/18 12:00 - Constitutional Appears: Chronically Ill - Head Exam Head Exam: NORMAL INSPECTION - Respiratory Exam Respiratory Exam: Decreased Breath Sounds - Cardiovascular Exam Cardiovascular Exam: +S1, +S2 - GI/Abdominal Exam GI & Abdominal Exam: Soft. absent: Tenderness Assessment and Plan - Assessment and Plan (Free Text) Plan: Assessment consider complicated UTI in this patient with indwelling Bray catheter and prostate cancer history of sepsis due to complicated UTI in this patient with indwelling Bray catheter and metastatic prostate cancer, grew Proteus and E. faecalis in the urine, clinically improved history of Proteus bacteremia, source unclear, concerned about intra-abdominal infection history of UTI in this patient with prostate cancer with metastasis history of Klebsiella urinary tract infection Mechanical fall, etiology to be determined prostate cancer on Lupron treatment once a month (hormonal treatment) seizure disorder glaucoma Plan continue Vantin for another 4-5 days overall prognosis is poor
== END 2018-08-02 13:22 | disposition hospice, home (50) | DRG 698 ==
LOC: ED 10:28 → ERH 15:20 → 2RNO 20:37 → 5RNO 07-30 12:54
PROVIDERS: ADMIT Internal Medicine Nephrology; ATTEND Internal Medicine Nephrology
PROC: 30233N1 Transfusion of Nonautologous Red Blood Cells into Peripheral Vein, Percutaneous Approach (ICD-10-PCS; principal; 2018-07-30)
DX: T83.518A Infection and inflammatory reaction due to other urinary catheter, initial encounter (principal); A41.9 Sepsis, unspecified organism; G93.41 Metabolic encephalopathy; N13.6 Pyonephrosis; E87.1 Hypo-osmolality and hyponatremia; N17.9 Acute kidney failure, unspecified; C79.51 Secondary malignant neoplasm of bone; D62 Acute posthemorrhagic anemia; R31.0 Gross hematuria; F03.90 Unspecified dementia, unspecified severity, without behavioral disturbance, psychotic disturbance, mood disturbance, and anxiety; I45.10 Unspecified right bundle-branch block; I44.0 Atrioventricular block, first degree; E87.5 Hyperkalemia; G89.3 Neoplasm related pain (acute) (chronic); K59.03 Drug induced constipation; T40.2X5A Adverse effect of other opioids, initial encounter; Y84.6 Urinary catheterization as the cause of abnormal reaction of the patient, or of later complication, without mention of misadventure at the time of the procedure; Z87.891 Personal history of nicotine dependence; Z87.440 Personal history of urinary (tract) infections; R50.9 Fever, unspecified; C61 Malignant neoplasm of prostate; E87.6 Hypokalemia; E83.42 Hypomagnesemia; D86.9 Sarcoidosis, unspecified; E16.2 Hypoglycemia, unspecified; E78.5 Hyperlipidemia, unspecified; G40.909 Epilepsy, unspecified, not intractable, without status epilepticus; H40.9 Unspecified glaucoma; I50.9 Heart failure, unspecified; K21.9 Gastro-esophageal reflux disease without esophagitis; R33.9 Retention of urine, unspecified; W18.30XA Fall on same level, unspecified, initial encounter; Z51.5 Encounter for palliative care; Z66 Do not resuscitate; Z74.01 Bed confinement status; Z79.818 Long term (current) use of other agents affecting estrogen receptors and estrogen levels; Z79.899 Other long term (current) drug therapy; Z87.01 Personal history of pneumonia (recurrent); Z98.42 Cataract extraction status, left eye; Z98.41 Cataract extraction status, right eye; Z99.3 Dependence on wheelchair